=== PATIENT | male | born 1940 | race Caucasian/White ===

== ENCOUNTER 2017-07-01 18:35 | Inpatient (IN) | payer MEDICARE ==
[2017-07-01] MEDS ORDERED: Sodium Chloride 0.9% 1,000 ML IV STA (18:56)
--- NOTE | 2017-07-01 18:59 | ED PDOC ---
HPI: Chest Pain Time Seen by Provider: 07/01/17 18:50 Chief Complaint (Nursing): Chest Pain History Per: Patient Onset/Duration Of Symptoms: Days (1) Current Symptoms Are (Timing): Better Severity: Mild Pain Scale Rating Of: 2 Quality: Aching Associated Symptoms: Dyspnea Additional Complaint(s): Chest pain at 9AM today. Nonradiating assoc with SOB and weakness. Denies fever or cough. Denies bloody stool. Denies abd pain. Left hand swelling. Denies trauma to left hand Past Medical History Vital Signs: Last Vital Signs Temp 98.1 F 07/01/17 18:42 Pulse 106 H 07/01/17 18:42 Resp 20 07/01/17 18:42 BP 131/74 07/01/17 18:42 Pulse Ox 99 07/01/17 18:42 - Medical History PMH: CHF, COPD - Surgical History Surgical History: Pacemaker - Family History Family History: States: Unknown Family Hx - Allergies Allergies/Adverse Reactions: Allergies Allergy/AdvReac Type Severity Reaction Status Date / Time No Known Allergies Allergy Verified 07/01/17 18:42 Review of Systems ROS Statement: Except As Marked, All Systems Reviewed And Found Negative Constitutional: Positive for: Weakness. Negative for: Fever Cardiovascular: Positive for: Chest Pain Respiratory: Positive for: Shortness of Breath. Negative for: Cough Physical Exam - Reviewed Nursing Documentation Reviewed: Yes Vital Signs Reviewed: Yes - Physical Exam Appears: Positive for: Non-toxic, No Acute Distress Head Exam: Positive for: ATRAUMATIC, NORMAL INSPECTION, NORMOCEPHALIC Skin: Positive for: Warm, Pallor Eye Exam: Positive for: EOMI, PERRL, Other (Conjunctivae pale) ENT: Positive for: Normal ENT Inspection Neck: Positive for: Normal, Painless ROM Cardiovascular/Chest: Positive for: Regular Rate, Rhythm Respiratory: Positive for: CNT, Normal Breath Sounds Pulses-Radial (L): 2+ Pulses-Radial (R): 2+ Gastrointestinal/Abdominal: Positive for: Bowel Sounds, Soft. Negative for: Tenderness Back: Positive for: Normal Inspection Extremity: Positive for: Swelling (Left hand swollen dorsum, nontender, no deformity) Neurologic/Psych: Positive for: Alert, Oriented - ECG O2 Sat by Pulse Oximetry: 99 Disposition - Clinical Impression Clinical Impression: Chest pain - Patient ED Disposition Is Patient to be Admitted: Transfer of Care - Disposition Disposition: Transfer of Care Disposition Time: 19:01 Condition: FAIR Patient Signed Over To: Martinez Calderon
--- NOTE | 2017-07-01 19:25 | ED PDOC ---
- Laboratory Results Result Diagrams: 07/01/17 19:56 07/01/17 19:56 - ECG O2 Sat by Pulse Oximetry: 99 (RA) Pulse Ox Interpretation: Normal Medical Decision Making Medical Decision Making: Patient signed out to provider from Dr. Granados at 1900 pending labs and final ED disposition. 2100 No clinical significant abnormalities. Case discussed with Dr. Mueller and patient will be placed on chest pain observation status Condition: Fair Scribe Attestation Documented by Ghazala Bean acting as a scribe for Martinez Calderon MD. Provider Attestation All medical record entries made by the Scribe were at my direction and personally dictated by me. I have reviewed the chart and agree that the record accurately reflects my personal performance of the history, physical exam, medical decision making, and the department course for this patient. I have also personally directed, reviewed, and agree with the discharge instructions and disposition. Disposition - Clinical Impression Clinical Impression: Chest pain, Anemia - POA Present On Arrival: None - Disposition Disposition: Hospitalized as Observation Patient Disposition Time: 20:30 Condition: FAIR
[2017-07-01 20:03] LABS: BASO # 0.1 K/uL (0.0-0.2); BASO % 1.3 % (0.0-2.0); HEMATOCRIT 29.8 % (35.0-51.0); LYMPH # 1.7 K/uL (1.0-4.3); LYMPH % 38.9 % (20.0-40.0); MEAN CELL VOLUME 82.5 fl (80.0-94.0); MEAN CORPUSCULAR HEMOGLOBIN 26.1 pg (27.0-31.0); MEAN CORPUSCULAR HGB CONC 31.6 g/dL (33.0-37.0); MEAN PLATELET VOLUME 6.8 fl (7.2-11.7); MONO # 0.4 K/uL (0.0-0.8); MONO % 9.1 % (0.0-10.0); NEUT # 2.2 K/uL (1.8-7.0); NEUT % 49.7 % (50.0-75.0); NRBC % 0.2 % (0.0-0.0); RED CELL DISTRIBUTION WIDTH 16.1 % (11.5-14.5); WHITE BLOOD COUNT 4.4 K/uL (4.8-10.8)
[2017-07-01 20:17] LABS: ALB/GLOB RATIO 0.9 (1.0-2.1); ALKALINE PHOSPHATASE 107 U/L (38-126); ALT/SGPT 44 U/L (21-72); AST/SGOT 40 U/L (17-59); BILIRUBIN,TOTAL 0.5 mg/dl (0.2-1.3); BLOOD UREA NITROGEN 13 mg/dl (9-20); CALCIUM 9.1 mg/dL (8.4-10.2); CARBON DIOXIDE 23 mmol/L (22-30); CHLORIDE 99 mmol/L (98-107); GFR AFRICAN-AMERICAN > 60; GLUCOSE,RANDOM 97 mg/dL (75-110); SODIUM 131 mmol/l (132-148); TOTAL PROTEIN 8.3 G/DL (6.3-8.2)
[2017-07-01 20:29] LABS: POTASSIUM 4.5 MMOL/L (3.6-5.0)
[2017-07-02 06:02] LABS: PARTIAL THROMBOPLASTIN TIME 35.6 Seconds (25.6-37.1)
[2017-07-02 06:06] LABS: ALB/GLOB RATIO 0.9 (1.0-2.1); ALKALINE PHOSPHATASE 102 U/L (38-126); ALT/SGPT 44 U/L (21-72); AST/SGOT 38 U/L (17-59); BILIRUBIN,TOTAL 0.4 mg/dl (0.2-1.3); BLOOD UREA NITROGEN 12 mg/dl (9-20); CALCIUM 8.8 mg/dL (8.4-10.2); CARBON DIOXIDE 25 mmol/L (22-30); CHLORIDE 100 mmol/L (98-107); CHOLESTEROL 134 mg/dL (0-199); GFR AFRICAN-AMERICAN > 60; GLUCOSE,RANDOM 93 mg/dL (75-110); POTASSIUM 4.3 MMOL/L (3.6-5.0); SODIUM 134 mmol/l (132-148); TOTAL PROTEIN 7.5 G/DL (6.3-8.2)
[2017-07-02 06:08] LABS: BASO # 0.1 K/uL (0.0-0.2); BASO % 1.1 % (0.0-2.0); EOS % 0.9 % (0.0-4.0); HEMATOCRIT 26.9 % (35.0-51.0); LYMPH # 2.1 K/uL (1.0-4.3); LYMPH % 43.3 % (20.0-40.0); MEAN CELL VOLUME 81.9 fl (80.0-94.0); MEAN CORPUSCULAR HEMOGLOBIN 26.3 pg (27.0-31.0); MEAN CORPUSCULAR HGB CONC 32.1 g/dL (33.0-37.0); MEAN PLATELET VOLUME 6.7 fl (7.2-11.7); MONO # 0.4 K/uL (0.0-0.8); MONO % 8.9 % (0.0-10.0); NEUT # 2.2 K/uL (1.8-7.0); NEUT % 45.8 % (50.0-75.0); RED CELL DISTRIBUTION WIDTH 15.9 % (11.5-14.5); RETIC% 1.1 % (0.5-1.5); WHITE BLOOD COUNT 4.7 K/uL (4.8-10.8)
[2017-07-02 06:24] LABS: T4 7.52 ug/dl (5.5-11.0)
[2017-07-02 06:28] LABS: IRON 22 ug/dL (49-181)
[2017-07-02 06:37] LABS: PROSTATE SPECIFIC ANTIGEN 0.095 ng/ML (0.00-4.0); THYROID STIMULATING HORMONE 1.01 mIU/ML (0.46-4.68)
[2017-07-02 09:00] LABS: RBC URINE 15 /hpf (0-3); URINE BACTERIA RARE (<OCC); URINE BILIRUBIN NEGATIVE (NEGATIVE); URINE BLOOD NEGATIVE (NEGATIVE); URINE COLOR AMBER (YELLOW); URINE GLUCOSE (UA) NEG (Normal); URINE KETONE NEGATIVE (NEGATIVE); URINE LEUKOCYTE ESTERASE NEG Leu/uL (Negative); URINE PROTEIN 30 mg/dL (NEGATIVE); URINE UROBILINOGEN 0.2-1.0 mg/dL (0.2-1.0); WBC URINE 3 /hpf (0-5)
--- NOTE | 2017-07-02 10:51 | RAD ---
HISTORY: Cough COMPARISON: 03/10/2012. FINDINGS: LUNGS: The lungs are well inflated and clear. PLEURA: No significant pleural effusion identified, no pneumothorax apparent. CARDIOVASCULAR: The heart is normal in size. There is stable position of a left-sided dual lead transvenous permanent pacing device. OSSEOUS STRUCTURES: No significant abnormalities. VISUALIZED UPPER ABDOMEN: Normal. OTHER FINDINGS: None. IMPRESSION: No active pulmonary disease.
--- NOTE | 2017-07-02 10:52 | US ---
PROCEDURE: Duplex ultrasound of the carotid and vertebral arteries. HISTORY: CHEST PAIN COMPARISON: None available. TECHNIQUE: Grayscale and duplex Doppler evaluation of the cervical carotid and vertebral arteries were performed. The common carotid, carotid bifurcations and cervical ICA and proximal ECA were evaluated. The vertebral arteries were evaluated for gross patency and direction. FINDINGS: RIGHT CAROTID ARTERIES: Common Carotid Artery: Normal. Maximal flow velocity of 93 cm/s. Carotid Bifurcation: Normal. Internal Carotid Artery:Normal. Maximal flow velocity of 88 cm/s. External Carotid Artery (proximal branches): Normal. Maximal flow velocity of 68 cm/s. ICA/CCA Ratio: 0.9 LEFT CAROTID ARTERIES: Common Carotid Artery: Normal. Maximal flow velocity of 90 cm/s. Carotid Bifurcation: Trace atherosclerotic plaque is noted at the carotid bulb. Internal Carotid Artery:Trace atherosclerotic plaque is noted proximally. Maximal flow velocity of 90 cm/s. External Carotid Artery (proximal branches): Normal. Maximal flow velocity of 67 cm/s. ICA/CCA Ratio: 1.3 VERTEBRAL ARTERIES: Right Vertebral Artery: Patent. Antegrade flow. Left Vertebral Artery: Patent. Antegrade flow. OTHER FINDINGS: None. IMPRESSION: Trace atherosclerotic plaque is seen at the left carotid bulb extending to the proximal left ICA minimally. No significant stenosis in the bilateral common or internal carotid arteries nevertheless.
--- NOTE | 2017-07-02 11:36 | CARD ---
APPROVED REPORT EXAM: Two-dimensional and M-mode echocardiogram with Doppler and color Doppler. Other Information Quality : FairRhythm : Pacemaker Technically limited study due to Poor Echo Window INDICATION Chest Pain Surgery/Intervention ICD/Pacemaker: 2D DIMENSIONS IVSd1.14 (0.7-1.1cm)LVDd5.23 (3.9-5.9cm) PWd0.73 (0.7-1.1cm)IVSs1.29 (0.8-1.2cm) LVDs4.60 (2.5-4.0cm)FS (%) 12.1 % PWs0.79 (0.8-1.2cm) Mitral Valve E/A ratio0.0 TDI E/Lateral E'0.0E/Medial E'0.0 LEFT VENTRICLE The left ventricle is normal size. There is normal left ventricular wall thickness. unable to assess LVEF due to poor acoustic windows, tachycardia, unable to assess Transmitral Doppler flow pattern is Grade IV-fixed restrictive diastolic dysfunction. No left ventricle thrombus noted on this study. There is no ventricular septal defect visualized. There is no left ventricular aneurysm. There is no mass noted in the left ventricle. RIGHT VENTRICLE The right ventricle is normal size. There is normal right ventricular wall thickness. The right ventricular systolic function is normal. ATRIA The left atrium size is normal. The right atrium size is normal. The interatrial septum is intact with no evidence for an atrial septal defect. AORTIC VALVE The aortic valve is normal in structure. No aortic regurgitation is present. There is no aortic valvular stenosis. There is no aortic valvular vegetation. MITRAL VALVE The mitral valve is normal in structure. There is no evidence of mitral valve prolapse. There is no mitral valve stenosis. There is no mitral valve regurgitation noted. TRICUSPID VALVE The tricuspid valve is normal in structure. There is no tricuspid valve regurgitation noted. There is no tricuspid valve prolapse or vegetation. There is no tricuspid valve stenosis. PULMONIC VALVE The pulmonary valve is normal in structure. There is no pulmonic valvular regurgitation. There is no pulmonic valvular stenosis. GREAT VESSELS The aortic root is normal in size. The ascending aorta is normal in size. The IVC is normal in size and collapses >50% with inspiration. PERICARDIAL EFFUSION The pericardium appears normal. There is no pleural effusion. <Conclusion> Technically difficult study unable to report LV systolic function Consider MUGA exam for better evaluation of LVEF Regional Wall Motion could not be assessed
[2017-07-02 13:21] LABS: FOLATE 7.5 ng/mL
--- NOTE | 2017-07-02 14:06 | RAD ---
PROCEDURE: Left Hand Radiographs. HISTORY: swelling COMPARISON: None. FINDINGS: BONES: No acute fracture or destructive bony lesion identified. Diffuse osteopenia suggests osteoporosis. JOINTS: Diffuse cortical sclerosis and subtle joint space narrowing throughout the joints of the left hand and incidentally throughout the wrist indicates degenerative joint disease. SOFT TISSUES: Normal. OTHER FINDINGS: None. IMPRESSION: No acute fracture or dislocation throughout left the left hand. degenerative joint changes are appreciated diffusely throughout the left hand.
--- NOTE | 2017-07-02 14:13 | CP.PCM.CON ---
History of Present Illness - History of Present Illness History of Present Illness: 76 year old male with a history of HTN, BPH, admitted with chest pain, found to be anemic. The patient reports to sternal chest pain associated with shortness of breath and cough. He had pain radiating down his left arm with swelling. He denies abnormal bleeding and bruising. He feels his weight is stable but he notes to diminished appetite in the last few weeks. Past medical history: HTN, BPH Past surgical history: None Family history: Denies hematologic and oncologic problems Social history: Denies tobacco, alcohol, and illicit drug use. Allergies: NKA Review of systems: All remaining review of systems including HEENT, cardiovascular, respiratory, gastrointestinal, genitourinary, musculoskeletal, dermatologic, neurologic, and psychiatric are negative unless mentioned in the HPI. Past Patient History - Past Medical History & Family History Past Medical History?: Yes - Past Social History Smoking Status: Former Smoker - CARDIAC Hx Cardiac Disorders: Yes Hx Congestive Heart Failure: Yes Hx Pacemaker: Yes - PULMONARY Hx Respiratory Disorders: Yes Hx Chronic Obstructive Pulmonary Disease (COPD): Yes - NEUROLOGICAL Hx Neurological Disorder: No - HEENT Hx HEENT Problems: No - RENAL Hx Chronic Kidney Disease: No - ENDOCRINE/METABOLIC Hx Endocrine Disorders: No - HEMATOLOGICAL/ONCOLOGICAL Hx Blood Disorders: No - INTEGUMENTARY Hx Dermatological Problems: No - MUSCULOSKELETAL/RHEUMATOLOGICAL Hx Musculoskeletal Disorders: Yes Hx Back Pain: Yes Hx Falls: No Hx Osteoarthritis: Yes - GASTROINTESTINAL Hx Gastrointestinal Disorders: No - GENITOURINARY/GYNECOLOGICAL Hx Genitourinary Disorders: Yes Hx Prostate Problems: Yes - PSYCHIATRIC Hx Psychophysiologic Disorder: No Hx Substance Use: No - SURGICAL HISTORY Hx Surgeries: Yes Hx Herniorrhaphy: Yes Hx Tonsillectomy: Yes Other/Comment: PACEMAKER - ANESTHESIA Hx Anesthesia: Yes Hx Anesthesia Reactions: No Hx Malignant Hyperthermia: No Meds Allergies/Adverse Reactions: Allergies Allergy/AdvReac Type Severity Reaction Status Date / Time No Known Allergies Allergy Verified 07/01/17 18:42 - Medications Medications: Current Medications Carvedilol (Coreg) 6.25 mg PO BID [facility] Last Admin: 07/02/17 09:38 Dose: 6.25 mg Epoetin Jhon (Procrit) 10,000 unit SC TTS [facility] Tamsulosin HCl (Flomax) 0.4 mg PO DAILY [facility] Last Admin: 07/02/17 09:38 Dose: 0.4 mg Physical Exam - Head Exam Head Exam: ATRAUMATIC - Eye Exam Eye Exam: Normal appearance - ENT Exam ENT Exam: Mucous Membranes Dry - Respiratory Exam Respiratory Exam: NORMAL BREATHING PATTERN - Cardiovascular Exam Cardiovascular Exam: +S1, +S2 - GI/Abdominal Exam GI & Abdominal Exam: Normal Bowel Sounds - Extremities Exam Extremities exam: Positive for: normal inspection - Neurological Exam Neurological exam: Oriented x3 - Psychiatric Exam Psychiatric exam: Normal Affect, Normal Mood - Skin Skin Exam: Warm Results - Vital Signs Recent Vital Signs: Last Vital Signs Temp 98.6 F 07/02/17 12:00 Pulse 90 07/02/17 12:00 Resp 18 07/02/17 12:00 BP 104/63 07/02/17 12:00 Pulse Ox 98 07/02/17 12:00 - Labs Result Diagrams: 07/02/17 04:25 07/02/17 04:25 Labs: Laboratory Results - last 24 hr 07/01/17 07/01/17 07/02/17 19:56 19:56 03:31 WBC 4.4 L RBC 3.61 L Hgb 9.4 L Hct 29.8 L MCV 82.5 MCH 26.1 L MCHC 31.6 L RDW 16.1 H Plt Count 404 H MPV 6.8 L Neut % (Auto) 49.7 L Lymph % (Auto) 38.9 Mcdonough % (Auto) 9.1 Eos % (Auto) 1.0 Baso % (Auto) 1.3 Neut # 2.2 Lymph # 1.7 Mcdonough # 0.4 Eos # 0.0 Baso # 0.1 Retic Count PT INR APTT Sodium 131 L Potassium 4.5 Chloride 99 Carbon Dioxide 23 Anion Gap 14 BUN 13 Creatinine 0.7 L Est GFR ( Amer) > 60 Est GFR (Non-Af Amer) > 60 Random Glucose 97 Calcium 9.1 Iron TIBC % Saturation Ferritin Total Bilirubin 0.5 AST 40 ALT 44 Alkaline Phosphatase 107 Troponin I < 0.0120 Total Protein 8.3 H Albumin 3.9 Globulin 4.4 H Albumin/Globulin Ratio 0.9 L Triglycerides Cholesterol LDL Cholesterol Direct HDL Cholesterol Prostate Specific Ag Vitamin B12 Folate Thyroxine (T4) TSH 3rd Generation Urine Color Mary Urine Clarity Slighty-cloudy Urine pH 5.0 Ur Specific [place] 1.027 Urine Protein 30 Urine Glucose (UA) Neg Urine Ketones Negative Urine Blood Negative Urine Nitrate Negative Urine Bilirubin Negative Urine Urobilinogen 0.2-1.0 Ur Leukocyte Esterase Neg Urine RBC (Auto) 15 H Urine Microscopic WBC 3 Ur Squamous Epith Cells < 1 Urine Bacteria Rare 07/02/17 07/02/17 07/02/17 04:25 04:25 04:25 WBC 4.7 L RBC 3.28 L Hgb 8.6 L Hct 26.9 L MCV 81.9 MCH 26.3 L MCHC 32.1 L RDW 15.9 H Plt Count 361 MPV 6.7 L Neut % (Auto) 45.8 L Lymph % (Auto) 43.3 H Mcdonough % (Auto) 8.9 Eos % (Auto) 0.9 Baso % (Auto) 1.1 Neut # 2.2 Lymph # 2.1 Mcdonough # 0.4 Eos # 0.0 Baso # 0.1 Retic Count 1.1 PT 18.7 H INR 1.6 H APTT 35.6 Sodium 134 Potassium 4.3 Chloride 100 Carbon Dioxide 25 Anion Gap 13 BUN 12 Creatinine 0.7 L Est GFR ( Amer) > 60 Est GFR (Non-Af Amer) > 60 Random Glucose 93 Calcium 8.8 Iron TIBC % Saturation Ferritin 1430.0 H Total Bilirubin 0.4 AST 38 ALT 44 Alkaline Phosphatase 102 Troponin I < 0.0120 Total Protein 7.5 Albumin 3.5 Globulin 3.9 Albumin/Globulin Ratio 0.9 L Triglycerides 74 Cholesterol 134 LDL Cholesterol Direct 95 HDL Cholesterol 17 L Prostate Specific Ag 0.095 Vitamin B12 576 Folate 7.5 Thyroxine (T4) 7.52 TSH 3rd Generation 1.01 Urine Color Urine Clarity Urine pH Ur Specific [place] Urine Protein Urine Glucose (UA) Urine Ketones Urine Blood Urine Nitrate Urine Bilirubin Urine Urobilinogen Ur Leukocyte Esterase Urine RBC (Auto) Urine Microscopic WBC Ur Squamous Epith Cells Urine Bacteria 07/02/17 07/02/17 04:25 11:55 WBC RBC Hgb Hct MCV MCH MCHC RDW Plt Count MPV Neut % (Auto) Lymph % (Auto) Mcdonough % (Auto) Eos % (Auto) Baso % (Auto) Neut # Lymph # Mcdonough # Eos # Baso # Retic Count PT INR APTT Sodium Potassium Chloride Carbon Dioxide Anion Gap BUN Creatinine Est GFR ( Amer) Est GFR (Non-Af Amer) Random Glucose Calcium Iron 22 L TIBC 187 L % Saturation 12 L Ferritin Total Bilirubin AST ALT Alkaline Phosphatase Troponin I < 0.0120 Total Protein Albumin Globulin Albumin/Globulin Ratio Triglycerides Cholesterol LDL Cholesterol Direct HDL Cholesterol Prostate Specific Ag Vitamin B12 Folate Thyroxine (T4) TSH 3rd Generation Urine Color Urine Clarity Urine pH Ur Specific [place] Urine Protein Urine Glucose (UA) Urine Ketones Urine Blood Urine Nitrate Urine Bilirubin Urine Urobilinogen Ur Leukocyte Esterase Urine RBC (Auto) Urine Microscopic WBC Ur Squamous Epith Cells Urine Bacteria Assessment & Plan (1) Anemia Assessment and Plan: hypoproliferative erythroid response no evidence of iron, b12, folate deficiency ferritin elevated; anemia of chronic disease given elevated globulin gap, will evaluate for monoclonal protein. Should he show evidence of a monoclonal protein, he would require a bone marrow biopsy. on Procrit supplementation Status: Acute Priority: High (2) Elevated serum globulin level Assessment and Plan: rule out monoclonal protein, rule out hepatitis Status: Acute (3) Coagulopathy Assessment and Plan: may be nutritional will consider vit k if worsens Status: Acute (4) Leukopenia Assessment and Plan: mild, no neutropenia Thank you for this interesting consult. Status: Acute
--- NOTE | 2017-07-02 14:34 | US ---
PROCEDURE: Left Upper Extremity Venous Doppler HISTORY: swelling COMPARISON: None available. TECHNIQUE: Left extremity deep veins, including the lower internal jugular, subclavian, axillary and brachial veins, were evaluated flow, compressibility and respiratory phasicity. FINDINGS: Normal flow, compressibility and respiratory phasicity was observed in the left upper extremity deep veins. IMPRESSION: No evidence of deep venous thrombosis.
--- NOTE | 2017-07-02 16:04 | CP.PCM.HP ---
History of Present Illness - History of Present Illness History of Present Illness: CC: Chest pain. 76 [facility] 9[facility] DOA, Pt had asa with no relief. Described as Sternal chest pain, intermittent, aching, moderate intensity 6:10, non radiated, associated to mild SOB and paroxysmal cough for 2 weeks prio admission Worsening symptoms: Weaknesses, dizziness x one week [employer], L shoulder pain for one week and also noticed with swelling edema in L hand 2 days [employer]. aggravated factor: Worsening pain with movements. Pt denied: Fever, chills, n/v/d, abdominal pain, urinary symptoms, blood in stool, syncope, hemoptysis, LOC, sick contact, recent travel. Echo: Technically difficult study , unable to report LV systolic function , suggested MUGA exam for evaluation of LV function ,regional wall motion could not be assessed. CXR: No active pulmonary disease. Present on Admission - Present on Admission Any Indicators Present on Admission: No Review of Systems - Constitutional Constitutional: Weakness - EENT Eyes: Requires Corrective Lenses Ears: Other (negative) Nose/Mouth/Throat: Other (negative) - Cardiovascular Cardiovascular: Chest Pain, Edema (R arm) - Respiratory Respiratory: Cough, Dyspnea - Gastrointestinal Gastrointestinal: Other (negative) - Genitourinary Genitourinary: Other (negative) - Musculoskeletal Musculoskeletal: Arthralgias, Other (L shoulder pain, L hand pain.) - Integumentary Integumentary: Other (negative) - Neurological Neurological: Dizziness, Weakness - Psychiatric Psychiatric: Other (negative) - Endocrine Endocrine: Other (negative) - Hematologic/Lymphatic Hematologic: Other (anemia.) Past Patient History - Past Medical History & Family History Past Medical History?: Yes Pertinent Family History: Unknown - Past Social History Smoking Status: Former Smoker Alcohol: None Drugs: Denies Home Situation {Lives}: With Family - CARDIAC Hx Cardiac Disorders: Yes Hx Congestive Heart Failure: Yes Hx Pacemaker: Yes Other/Comment: Dyslipidemia. - PULMONARY Hx Respiratory Disorders: Yes Hx Chronic Obstructive Pulmonary Disease (COPD): Yes - NEUROLOGICAL Hx Neurological Disorder: No - HEENT Hx HEENT Problems: No - RENAL Hx Chronic Kidney Disease: No - ENDOCRINE/METABOLIC Hx Endocrine Disorders: No - HEMATOLOGICAL/ONCOLOGICAL Hx Blood Disorders: No - INTEGUMENTARY Hx Dermatological Problems: No - MUSCULOSKELETAL/RHEUMATOLOGICAL Hx Musculoskeletal Disorders: Yes Hx Back Pain: Yes Hx Falls: No Hx Osteoarthritis: Yes - GASTROINTESTINAL Hx Gastrointestinal Disorders: No - GENITOURINARY/GYNECOLOGICAL Hx Genitourinary Disorders: Yes Hx Prostate Problems: Yes - PSYCHIATRIC Hx Psychophysiologic Disorder: Yes Hx Anxiety: Yes Hx Substance Use: No - SURGICAL HISTORY Hx Surgeries: Yes Hx Herniorrhaphy: Yes Hx Tonsillectomy: Yes Other/Comment: PACEMAKER - ANESTHESIA Hx Anesthesia: Yes Hx Anesthesia Reactions: No Hx Malignant Hyperthermia: No Meds Allergies/Adverse Reactions: Allergies Allergy/AdvReac Type Severity Reaction Status Date / Time No Known Allergies Allergy Verified 07/01/17 18:42 Physical Exam - Constitutional Appears: No Acute Distress - Head Exam Head Exam: NORMAL INSPECTION - Eye Exam Eye Exam: PERRL - ENT Exam ENT Exam: Normal Exam - Neck Exam Neck exam: Positive for: Normal Inspection - Respiratory Exam Respiratory Exam: NORMAL BREATHING PATTERN - Cardiovascular Exam Cardiovascular Exam: REGULAR RHYTHM - GI/Abdominal Exam GI & Abdominal Exam: Normal Bowel Sounds, Soft - Extremities Exam Extremities exam: Positive for: joint swelling (L hand), tenderness (L shoulder) Additional comments: 2+ Pitting edema L hand. R-L TKR - Back Exam Back exam: NORMAL INSPECTION - Neurological Exam Neurological exam: Alert, Oriented x3 Additional comments: At times forgetful. - Psychiatric Exam Psychiatric exam: Normal Mood - Skin Skin Exam: Warm Results - Vital Signs Recent Vital Signs: Last Vital Signs Temp 98.6 F 07/02/17 12:00 Pulse 90 07/02/17 12:00 Resp 18 07/02/17 12:00 BP 104/63 07/02/17 12:00 Pulse Ox 98 07/02/17 12:00 reviewed Dora - Labs Result Diagrams: 07/08/17 12:19 07/09/17 05:00 Labs: Laboratory Results - last 24 hr 07/01/17 07/01/17 07/02/17 19:56 19:56 03:31 WBC 4.4 L RBC 3.61 L Hgb 9.4 L Hct 29.8 L MCV 82.5 MCH 26.1 L MCHC 31.6 L RDW 16.1 H Plt Count 404 H MPV 6.8 L Neut % (Auto) 49.7 L Lymph % (Auto) 38.9 Door % (Auto) 9.1 Eos % (Auto) 1.0 Baso % (Auto) 1.3 Neut # 2.2 Lymph # 1.7 Door # 0.4 Eos # 0.0 Baso # 0.1 Retic Count PT INR APTT Sodium 131 L Potassium 4.5 Chloride 99 Carbon Dioxide 23 Anion Gap 14 BUN 13 Creatinine 0.7 L Est GFR ( Amer) > 60 Est GFR (Non-Af Amer) > 60 Random Glucose 97 Calcium 9.1 Iron TIBC % Saturation Ferritin Total Bilirubin 0.5 AST 40 ALT 44 Alkaline Phosphatase 107 Troponin I < 0.0120 Total Protein 8.3 H Albumin 3.9 Globulin 4.4 H Albumin/Globulin Ratio 0.9 L Triglycerides Cholesterol LDL Cholesterol Direct HDL Cholesterol Prostate Specific Ag Vitamin B12 Folate Thyroxine (T4) TSH 3rd Generation Urine Color Mary Urine Clarity Slighty-cloudy Urine pH 5.0 Ur Specific [place] 1.027 Urine Protein 30 Urine Glucose (UA) Neg Urine Ketones Negative Urine Blood Negative Urine Nitrate Negative Urine Bilirubin Negative Urine Urobilinogen 0.2-1.0 Ur Leukocyte Esterase Neg Urine RBC (Auto) 15 H Urine Microscopic WBC 3 Ur Squamous Epith Cells < 1 Urine Bacteria Rare 07/02/17 07/02/17 07/02/17 04:25 04:25 04:25 WBC 4.7 L RBC 3.28 L Hgb 8.6 L Hct 26.9 L MCV 81.9 MCH 26.3 L MCHC 32.1 L RDW 15.9 H Plt Count 361 MPV 6.7 L Neut % (Auto) 45.8 L Lymph % (Auto) 43.3 H Door % (Auto) 8.9 Eos % (Auto) 0.9 Baso % (Auto) 1.1 Neut # 2.2 Lymph # 2.1 Door # 0.4 Eos # 0.0 Baso # 0.1 Retic Count 1.1 PT 18.7 H INR 1.6 H APTT 35.6 Sodium 134 Potassium 4.3 Chloride 100 Carbon Dioxide 25 Anion Gap 13 BUN 12 Creatinine 0.7 L Est GFR ( Amer) > 60 Est GFR (Non-Af Amer) > 60 Random Glucose 93 Calcium 8.8 Iron TIBC % Saturation Ferritin 1430.0 H Total Bilirubin 0.4 AST 38 ALT 44 Alkaline Phosphatase 102 Troponin I < 0.0120 Total Protein 7.5 Albumin 3.5 Globulin 3.9 Albumin/Globulin Ratio 0.9 L Triglycerides 74 Cholesterol 134 LDL Cholesterol Direct 95 HDL Cholesterol 17 L Prostate Specific Ag 0.095 Vitamin B12 576 Folate 7.5 Thyroxine (T4) 7.52 TSH 3rd Generation 1.01 Urine Color Urine Clarity Urine pH Ur Specific [place] Urine Protein Urine Glucose (UA) Urine Ketones Urine Blood Urine Nitrate Urine Bilirubin Urine Urobilinogen Ur Leukocyte Esterase Urine RBC (Auto) Urine Microscopic WBC Ur Squamous Epith Cells Urine Bacteria 07/02/17 07/02/17 04:25 11:55 WBC RBC Hgb Hct MCV MCH MCHC RDW Plt Count MPV Neut % (Auto) Lymph % (Auto) Door % (Auto) Eos % (Auto) Baso % (Auto) Neut # Lymph # Door # Eos # Baso # Retic Count PT INR APTT Sodium Potassium Chloride Carbon Dioxide Anion Gap BUN Creatinine Est GFR ( Amer) Est GFR (Non-Af Amer) Random Glucose Calcium Iron 22 L TIBC 187 L % Saturation 12 L Ferritin Total Bilirubin AST ALT Alkaline Phosphatase Troponin I < 0.0120 Total Protein Albumin Globulin Albumin/Globulin Ratio Triglycerides Cholesterol LDL Cholesterol Direct HDL Cholesterol Prostate Specific Ag Vitamin B12 Folate Thyroxine (T4) TSH 3rd Generation Urine Color Urine Clarity Urine pH Ur Specific [place] Urine Protein Urine Glucose (UA) Urine Ketones Urine Blood Urine Nitrate Urine Bilirubin Urine Urobilinogen Ur Leukocyte Esterase Urine RBC (Auto) Urine Microscopic WBC Ur Squamous Epith Cells Urine Bacteria reviewed J.P. - Imaging and Cardiology Chest x-ray Status: Report reviewed by me (Dora) Additional comment: Echo: Reviewed J.P. Assessment & Plan (1) Anemia Status: Acute Priority: High (2) Chest pain Status: Acute Priority: High (3) History of CHF (congestive heart failure) Status: Chronic Priority: Medium (4) Pain in left shoulder Status: Acute (5) History of permanent cardiac pacemaker placement Status: Chronic Priority: Medium (6) History of BPH Status: Chronic Priority: Medium - Assessment and Plan (Free Text) Plan: EKG, Doppler LUE, Shoulder X-ray, X-Ray L hand, continue Coreg, NaCL IV, Cardiology consult. - Date & Time Date: 07/02/17
--- NOTE | 2017-07-03 01:36 | CP.PCM.CON ---
History of Present Illness - History of Present Illness History of Present Illness: Consulation for chest pain HPI : Mr. Pavel Scott is a 76-year-old male with past medical history significant for hypertension BPH who was admitted with an episode of chest pain. According to the patient he had a retrosternal pressure-like sensation accompanied with shortness of breath and cough he also had radiating pain down the left arm accompanied with left-sided swelling patient had these symptoms ongoing for the last few months. Past medical history as stated above significant for hypertension and BPH. . Family history nonsignificant for his premature CAD. Social history denies history of smoking alcohol or illicit drug use. Allergies no known drug allergies. Review of systems as stated above in the HPI Review of Systems - Review of Systems All systems: reviewed and no additional remarkable complaints except - Constitutional Constitutional: As Per HPI - EENT Eyes: As Per HPI Nose/Mouth/Throat: As Per HPI - Cardiovascular Cardiovascular: As Per HPI, Chest Pain - Respiratory Respiratory: As Per HPI - Gastrointestinal Gastrointestinal: As Per HPI - Genitourinary Genitourinary: As Per HPI - Reproductive: Male Reproductive:Male: As Per HPI - Musculoskeletal Musculoskeletal: As Per HPI - Integumentary Integumentary: As Per HPI - Neurological Neurological: As Per HPI - Psychiatric Psychiatric: As Per HPI - Endocrine Endocrine: As Per HPI - Hematologic/Lymphatic Hematologic: As Per HPI Past Patient History - Past Medical History & Family History Past Medical History?: Yes - Past Social History Smoking Status: Former Smoker - CARDIAC Hx Cardiac Disorders: Yes Hx Congestive Heart Failure: Yes Hx Pacemaker: Yes - PULMONARY Hx Respiratory Disorders: Yes Hx Chronic Obstructive Pulmonary Disease (COPD): Yes - NEUROLOGICAL Hx Neurological Disorder: No - HEENT Hx HEENT Problems: No - RENAL Hx Chronic Kidney Disease: No - ENDOCRINE/METABOLIC Hx Endocrine Disorders: No - HEMATOLOGICAL/ONCOLOGICAL Hx Blood Disorders: No - INTEGUMENTARY Hx Dermatological Problems: No - MUSCULOSKELETAL/RHEUMATOLOGICAL Hx Musculoskeletal Disorders: Yes Hx Back Pain: Yes Hx Falls: No Hx Osteoarthritis: Yes - GASTROINTESTINAL Hx Gastrointestinal Disorders: No - GENITOURINARY/GYNECOLOGICAL Hx Genitourinary Disorders: Yes Hx Prostate Problems: Yes - PSYCHIATRIC Hx Psychophysiologic Disorder: No Hx Substance Use: No - SURGICAL HISTORY Hx Surgeries: Yes Hx Herniorrhaphy: Yes Hx Tonsillectomy: Yes Other/Comment: PACEMAKER - ANESTHESIA Hx Anesthesia: Yes Hx Anesthesia Reactions: No Hx Malignant Hyperthermia: No Meds Allergies/Adverse Reactions: Allergies Allergy/AdvReac Type Severity Reaction Status Date / Time No Known Allergies Allergy Verified 07/01/17 18:42 - Medications Medications: Current Medications Carvedilol (Coreg) 6.25 mg PO BID [facility] Last Admin: 07/02/17 17:26 Dose: 6.25 mg Epoetin Jhon (Procrit) 10,000 unit SC TTS [facility] Tamsulosin HCl (Flomax) 0.4 mg PO DAILY [facility] Last Admin: 07/02/17 09:38 Dose: 0.4 mg Physical Exam - Constitutional Appears: Well - Head Exam Head Exam: ATRAUMATIC, NORMAL INSPECTION, NORMOCEPHALIC - Eye Exam Eye Exam: EOMI, Normal appearance, PERRL Pupil Exam: NORMAL ACCOMODATION, PERRL - ENT Exam ENT Exam: Mucous Membranes Moist, Normal Exam - Neck Exam Neck exam: Positive for: Normal Inspection - Respiratory Exam Respiratory Exam: Clear to Auscultation Bilateral, NORMAL BREATHING PATTERN - Cardiovascular Exam Cardiovascular Exam: REGULAR RHYTHM, RRR, +S1, +S2, Systolic Murmur - GI/Abdominal Exam GI & Abdominal Exam: Normal Bowel Sounds, Soft. absent: Tenderness - Extremities Exam Extremities exam: Positive for: normal inspection - Back Exam Back exam: NORMAL INSPECTION - Neurological Exam Neurological exam: Alert, CN II-XII Intact, Normal Gait, Oriented x3, Reflexes Normal - Psychiatric Exam Psychiatric exam: Normal Affect, Normal Mood - Skin Skin Exam: Dry, Intact, Normal Color, Warm Results - Vital Signs Recent Vital Signs: Last Vital Signs Temp 98.7 F 07/03/17 00:56 Pulse 88 07/03/17 00:56 Resp 18 07/03/17 00:56 BP 112/68 07/03/17 00:56 Pulse Ox 99 07/03/17 00:56 - Labs Result Diagrams: 07/05/17 10:44 07/05/17 10:44 Labs: Laboratory Results - last 24 hr 07/02/17 07/02/17 07/02/17 03:31 04:25 04:25 WBC 4.7 L RBC 3.28 L Hgb 8.6 L Hct 26.9 L MCV 81.9 MCH 26.3 L MCHC 32.1 L RDW 15.9 H Plt Count 361 MPV 6.7 L Neut % (Auto) 45.8 L Lymph % (Auto) 43.3 H [place] % (Auto) 8.9 Eos % (Auto) 0.9 Baso % (Auto) 1.1 Neut # 2.2 Lymph # 2.1 [place] # 0.4 Eos # 0.0 Baso # 0.1 Retic Count 1.1 PT 18.7 H INR 1.6 H APTT 35.6 Sodium Potassium Chloride Carbon Dioxide Anion Gap BUN Creatinine Est GFR ( Amer) Est GFR (Non-Af Amer) Random Glucose Calcium Iron TIBC % Saturation Ferritin Total Bilirubin AST ALT Alkaline Phosphatase Troponin I Total Protein Albumin Globulin Albumin/Globulin Ratio Triglycerides Cholesterol LDL Cholesterol Direct HDL Cholesterol Prostate Specific Ag Vitamin B12 Folate Thyroxine (T4) TSH 3rd Generation Urine Color Mary Urine Clarity Slighty-cloudy Urine pH 5.0 Ur Specific [place] 1.027 Urine Protein 30 Urine Glucose (UA) Neg Urine Ketones Negative Urine Blood Negative Urine Nitrate Negative Urine Bilirubin Negative Urine Urobilinogen 0.2-1.0 Ur Leukocyte Esterase Neg Urine RBC (Auto) 15 H Urine Microscopic WBC 3 Ur Squamous Epith Cells < 1 Urine Bacteria Rare 07/02/17 07/02/17 07/02/17 04:25 04:25 11:55 WBC RBC Hgb Hct MCV MCH MCHC RDW Plt Count MPV Neut % (Auto) Lymph % (Auto) [place] % (Auto) Eos % (Auto) Baso % (Auto) Neut # Lymph # [place] # Eos # Baso # Retic Count PT INR APTT Sodium 134 Potassium 4.3 Chloride 100 Carbon Dioxide 25 Anion Gap 13 BUN 12 Creatinine 0.7 L Est GFR ( Amer) > 60 Est GFR (Non-Af Amer) > 60 Random Glucose 93 Calcium 8.8 Iron 22 L TIBC 187 L % Saturation 12 L Ferritin 1430.0 H Total Bilirubin 0.4 AST 38 ALT 44 Alkaline Phosphatase 102 Troponin I < 0.0120 < 0.0120 Total Protein 7.5 Albumin 3.5 Globulin 3.9 Albumin/Globulin Ratio 0.9 L Triglycerides 74 Cholesterol 134 LDL Cholesterol Direct 95 HDL Cholesterol 17 L Prostate Specific Ag 0.095 Vitamin B12 576 Folate 7.5 Thyroxine (T4) 7.52 TSH 3rd Generation 1.01 Urine Color Urine Clarity Urine pH Ur Specific [place] Urine Protein Urine Glucose (UA) Urine Ketones Urine Blood Urine Nitrate Urine Bilirubin Urine Urobilinogen Ur Leukocyte Esterase Urine RBC (Auto) Urine Microscopic WBC Ur Squamous Epith Cells Urine Bacteria Assessment & Plan (1) Chest pain Assessment and Plan: sx suggestive of underlying CAD keep pt on asa, bb, statins check FLP MARCIE plan for stress test if cardiac enzymes -ve Status: Acute Priority: High (2) Coagulopathy Assessment and Plan: etiology ? vit K deficiency LFT's Status: Acute (3) Pain in left shoulder Status: Acute (4) History of CHF (congestive heart failure) Assessment and Plan: diastolic echo Status: Chronic Priority: Medium (5) History of permanent cardiac pacemaker placement Status: Chronic Priority: Medium
[2017-07-03 05:49] LABS: HEMATOCRIT 27.3 % (35.0-51.0); MEAN CELL VOLUME 82.3 fl (80.0-94.0); MEAN CORPUSCULAR HEMOGLOBIN 26.1 pg (27.0-31.0); MEAN CORPUSCULAR HGB CONC 31.7 g/dL (33.0-37.0); RED CELL DISTRIBUTION WIDTH 16.1 % (11.5-14.5)
--- NOTE | 2017-07-03 05:52 | CON ---
DATE: 07/02/2017 REFERRING PHYSICIAN: Dr. Mueller. REASON FOR CONSULTATION: Abdominal pain, chest pain. HISTORY OF PRESENT ILLNESS: This is a 76-year-old male with history of having chest pain radiating to the back. No shortness of breath. Some dyspnea on exertion. No heartburn or reflux, history of COPD, pacemaker and CHF. Denies any GI complaints per se. He is tolerating diet. His GI was called for anemia, but no evidence of bleeding, does not recall when the last colonoscopy was, but this was relatively recently over the past 5 years. Currently, lying in bed comfortable, in no apparent distress. PAST MEDICAL HISTORY: As above. PAST SURGICAL HISTORY: As above. MEDICATIONS: Reviewed. REVIEW OF SYSTEMS: All other systems have been reviewed and are negative apart from the HPI. PHYSICAL EXAMINATION: VITAL SIGNS: In the hospital, grossly unremarkable. GENERAL: This is a pleasant, elderly-appearing male, lying in bed comfortable, in no apparent distress. HEENT: Head is normocephalic, atraumatic. Eyes, pupils are equally reactive to light bilaterally. No conjunctival pallor or icterus. NECK: Supple. Normal range of motion. No lymphadenopathy appreciated. LUNGS: Coarse breath sounds bilaterally. HEART: S1 and S2, regular rate and rhythm. No murmur appreciated. ABDOMEN: Soft, nontender. Bowel sounds present. No rebound. No guarding. RECTAL: Deferred. EXTREMITIES: Pulses present bilaterally. SKIN: Warm, dry and intact. NEUROLOGIC: A and O x3. LABORATORY DATA: All labs and relevant radiology have been reviewed. Labs include 4.7 is WBC, 8.6 is hemoglobin, hematocrit 26.9, platelet count is 261. INR 1.6. BUN and creatinine normal. 1400. Urinalysis is negative. ASSESSMENT AND PLAN: This is a 76-year-old man with anemia; we will treat accordingly. For chest pain, from GI standpoint, the chest pain is probably cardiac in origin. Given his chronic comorbidities, recommend cardiac input as well as hematology input. From a GI standpoint, can get an endoscopy and colonoscopy at some point electively, but there is no active evidence of bleeding, so not needed to do it urgently. From an upper GI standpoint, proton pump inhibitor once a day. Advance diet as tolerated. Thank you for the consult. Joseph Li MD/ PhD cc: Dr. Mueller.
[2017-07-03 07:16] LABS: TOTAL PROTEIN, SERUM 6.2 g/dL (6.1-8.1)
[2017-07-03] MEDS ORDERED: Aminophylline 25 mg/ml Inj ONE (11:48)
--- NOTE | 2017-07-03 12:06 | CARD ---
APPROVED REPORT EKG Measurement Heart [id number] CT 196P81 [id number] <Conclusion> Sinus rhythm with frequent premature ventricular complexes Left bundle branch block Abnormal ECG
[2017-07-03] MEDS ORDERED: Phytonadione 10 mg/ml Inj (Adult) IV ONE (13:38)
[2017-07-03] MEDS ORDERED: Phytonadione 10 MG in Sodium Chloride 0.9% 50 ML IV ONE (13:45)
--- NOTE | 2017-07-03 15:12 | CP.PCM.PN ---
Subjective - Date & Time of Evaluation Date of Evaluation: 07/03/17 Time of Evaluation: 15:00 - Subjective Subjective: no overnight events Objective - Vital Signs/Intake and Output Vital Signs (last 24 hours): Temp Pulse Resp BP Pulse Ox 98.4 F 95 H 20 101/55 L 100 07/03/17 08:34 07/03/17 09:22 07/03/17 08:34 07/03/17 09:22 07/03/17 08:34 - Medications Medications: Current Medications Carvedilol (Coreg) 6.25 mg PO BID [facility] Last Admin: 07/03/17 09:22 Dose: Not Given Epoetin Jhon (Procrit) 10,000 unit SC TTS [facility] Tamsulosin HCl (Flomax) 0.4 mg PO DAILY [facility] Last Admin: 07/03/17 15:06 Dose: 0.4 mg - Labs Labs: 07/03/17 04:30 07/02/17 04:25 PT 18.7 Seconds (9.8-13.1) H 07/03/17 04:30 INR 1.6 (0.9-1.2) H 07/03/17 04:30 APTT 35.6 Seconds (25.6-37.1) 07/02/17 04:25 - Head Exam Head Exam: NORMAL INSPECTION - Respiratory Exam Respiratory Exam: NORMAL BREATHING PATTERN - Cardiovascular Exam Cardiovascular Exam: REGULAR RHYTHM - GI/Abdominal Exam GI & Abdominal Exam: Soft, Normal Bowel Sounds Assessment and Plan - Assessment and Plan (Free Text) Assessment: 76 yo male with anemia no bleeding cardiac input
--- NOTE | 2017-07-03 16:00 | CP.PCM.PN ---
Subjective - Date & Time of Evaluation Date of Evaluation: 07/03/17 Time of Evaluation: 16:00 - Subjective Subjective: intermittent episode of CP s/p stress test with septal and inferior ischemia vs. attenuation Objective - Vital Signs/Intake and Output Vital Signs (last 24 hours): Temp Pulse Resp BP Pulse Ox 98.6 F 98 H 18 102/65 95 07/03/17 15:42 07/03/17 15:42 07/03/17 15:42 07/03/17 15:42 07/03/17 15:42 - Medications Medications: Current Medications Carvedilol (Coreg) 6.25 mg PO BID [facility] Last Admin: 07/03/17 09:22 Dose: Not Given Epoetin Jhon (Procrit) 10,000 unit SC TTS [facility] Tamsulosin HCl (Flomax) 0.4 mg PO DAILY [facility] Last Admin: 07/03/17 15:06 Dose: 0.4 mg - Labs Labs: 07/03/17 04:30 07/02/17 04:25 PT 18.7 Seconds (9.8-13.1) H 07/03/17 04:30 INR 1.6 (0.9-1.2) H 07/03/17 04:30 APTT 35.6 Seconds (25.6-37.1) 07/02/17 04:25 - Constitutional Appears: Well - Head Exam Head Exam: ATRAUMATIC, NORMAL INSPECTION, NORMOCEPHALIC - Eye Exam Eye Exam: EOMI, Normal appearance, PERRL Pupil Exam: NORMAL ACCOMODATION, PERRL - ENT Exam ENT Exam: Mucous Membranes Moist, Normal Exam - Neck Exam Neck Exam: Full ROM, Normal Inspection. absent: Lymphadenopathy - Respiratory Exam Respiratory Exam: Clear to Ausculation Bilateral, NORMAL BREATHING PATTERN - Cardiovascular Exam Cardiovascular Exam: REGULAR RHYTHM, +S1, +S2. absent: Murmur - GI/Abdominal Exam GI & Abdominal Exam: Soft, Normal Bowel Sounds. absent: Tenderness - Extremities Exam Extremities Exam: Full ROM, Normal Capillary Refill, Normal Inspection. absent : Joint Swelling, Pedal Edema - Back Exam Back Exam: NORMAL INSPECTION - Neurological Exam Neurological Exam: Alert, Awake, CN II-XII Intact, Normal Gait, Oriented x3 - Psychiatric Exam Psychiatric exam: Normal Affect, Normal Mood - Skin Skin Exam: Dry, Intact, Normal Color, Warm Assessment and Plan (1) Chest pain Assessment & Plan: plan for left heart cath to be setup at [facility] [place] Status: Acute (2) Coagulopathy Assessment & Plan: vit K supplementation Status: Acute (3) Pain in left shoulder Status: Acute (4) History of CHF (congestive heart failure) Status: Chronic (5) History of permanent cardiac pacemaker placement Status: Chronic
[2017-07-04 06:00] LABS: BETA 1 GLOBULIN 0.3 g/dL (0.4-0.6); BETA 2 GLOBULIN 0.5 g/dL (0.2-0.5)
[2017-07-04] MEDS ORDERED: Phytonadione 10 mg/ml Inj (Adult) SC ONE (07:45)
[2017-07-04] MEDS: EPOETIN ALFA 10,000 UNIT/ML ML SC SCH (08:34)
--- NOTE | 2017-07-04 13:35 | CP.PCM.PN ---
Subjective - Date & Time of Evaluation Date of Evaluation: 07/04/17 Time of Evaluation: 13:00 - Subjective Subjective: No complaints. Objective - Vital Signs/Intake and Output Vital Signs (last 24 hours): Temp Pulse Resp BP Pulse Ox 98.6 F 93 H 18 113/70 100 07/04/17 08:00 07/04/17 09:00 07/04/17 08:00 07/04/17 08:33 07/04/17 08:00 - Medications Medications: Current Medications Carvedilol (Coreg) 6.25 mg PO BID [facility] Last Admin: 07/04/17 08:33 Dose: 6.25 mg Epoetin Jhon (Procrit) 10,000 unit SC TTS [facility] Last Admin: 07/04/17 08:34 Dose: 10,000 unit Tamsulosin HCl (Flomax) 0.4 mg PO DAILY [facility] Last Admin: 07/04/17 08:34 Dose: Not Given - Labs Labs: 07/03/17 04:30 07/02/17 04:25 PT 19.2 Seconds (9.8-13.1) H 07/04/17 05:30 INR 1.7 (0.9-1.2) H 07/04/17 05:30 APTT 35.6 Seconds (25.6-37.1) 07/02/17 04:25 - Head Exam Head Exam: ATRAUMATIC - Eye Exam Eye Exam: Normal appearance - ENT Exam ENT Exam: Mucous Membranes Dry - Respiratory Exam Respiratory Exam: NORMAL BREATHING PATTERN - Cardiovascular Exam Cardiovascular Exam: +S1, +S2 - GI/Abdominal Exam GI & Abdominal Exam: Normal Bowel Sounds - Extremities Exam Extremities Exam: Normal Inspection Assessment and Plan (1) Anemia Assessment & Plan: normal iron, b12, folate stores elevated ferritin; anemia of chronic disease monoclonal protein w/u sent on Procrit Status: Acute (2) Elevated serum globulin level Assessment & Plan: monoclonal protein w/u sent Status: Acute (3) Coagulopathy Assessment & Plan: s/p vit K IV if no improvement will send mixing study Status: Acute
[2017-07-04 23:03] LABS: KAPPA/LAMBDA FREE RATIO 0.93 (0.26-1.65)
--- NOTE | 2017-07-05 00:45 | CP.PCM.PN ---
Subjective - Date & Time of Evaluation Date of Evaluation: 07/04/17 Time of Evaluation: 13:00 - Subjective Subjective: s/p LHCx showing LAD 65% , mid RCA 55% Objective - Vital Signs/Intake and Output Vital Signs (last 24 hours): Temp Pulse Resp BP Pulse Ox 97.2 F L 102 H 18 106/64 99 07/05/17 00:19 07/05/17 00:19 07/05/17 00:19 07/05/17 00:19 07/05/17 00:19 Intake and Output: 07/04/17 07/05/17 18:59 06:59 Intake Total 100 Balance 100 - Medications Medications: Current Medications Carvedilol (Coreg) 6.25 mg PO BID [facility] Last Admin: 07/04/17 17:58 Dose: Not Given Epoetin Jhon (Procrit) 10,000 unit SC TTS [facility] Last Admin: 07/04/17 08:34 Dose: 10,000 unit Tamsulosin HCl (Flomax) 0.4 mg PO DAILY [facility] Last Admin: 07/04/17 17:59 Dose: Not Given - Labs Labs: 07/03/17 04:30 07/02/17 04:25 PT 19.2 Seconds (9.8-13.1) H 07/04/17 05:30 INR 1.7 (0.9-1.2) H 07/04/17 05:30 APTT 35.6 Seconds (25.6-37.1) 07/02/17 04:25 - Constitutional Appears: Well - Head Exam Head Exam: ATRAUMATIC, NORMAL INSPECTION, NORMOCEPHALIC - Eye Exam Eye Exam: EOMI, Normal appearance, PERRL Pupil Exam: NORMAL ACCOMODATION, PERRL - ENT Exam ENT Exam: Mucous Membranes Moist, Normal Exam - Neck Exam Neck Exam: Full ROM, Normal Inspection. absent: Lymphadenopathy - Respiratory Exam Respiratory Exam: Clear to Ausculation Bilateral, NORMAL BREATHING PATTERN - Cardiovascular Exam Cardiovascular Exam: REGULAR RHYTHM, +S1, +S2, Murmur - GI/Abdominal Exam GI & Abdominal Exam: Soft, Normal Bowel Sounds. absent: Tenderness - Extremities Exam Extremities Exam: Full ROM, Normal Capillary Refill, Normal Inspection. absent : Joint Swelling, Pedal Edema - Back Exam Back Exam: NORMAL INSPECTION - Neurological Exam Neurological Exam: Alert, Awake, CN II-XII Intact, Normal Gait, Oriented x3 - Psychiatric Exam Psychiatric exam: Normal Affect, Normal Mood - Skin Skin Exam: Dry, Intact, Normal Color, Warm Assessment and Plan (1) Chest pain Assessment & Plan: s/p stress test showing +ve ischemia s/p LHCx showing moderate LAD and RCA stenosis plan for aggressive medical management with ASA, plavix, statins, bb and nitrates if pt has ischemic sx on maximal medical therapy then will consider PCI of LAD/ RCA Status: Acute (2) Coagulopathy Assessment & Plan: etiology unclear ? 2' to vit K def will need heme eval Status: Acute (3) Pain in left shoulder Assessment & Plan: 2' to CAD Status: Acute (4) History of CHF (congestive heart failure) Assessment & Plan: ischemic CHF keep pt on GDMT for CAD and CHF BB, ACEi , nitrates Status: Chronic (5) History of permanent cardiac pacemaker placement Assessment & Plan: PPM eval Status: Chronic
[2017-07-05 10:47] LABS: HEMATOCRIT 28.7 % (35.0-51.0); MEAN CELL VOLUME 81.2 fl (80.0-94.0); MEAN CORPUSCULAR HEMOGLOBIN 26.3 pg (27.0-31.0); MEAN CORPUSCULAR HGB CONC 32.4 g/dL (33.0-37.0); RED CELL DISTRIBUTION WIDTH 15.7 % (11.5-14.5)
--- NOTE | 2017-07-05 11:17 | CP.PCM.PN ---
Subjective - Date & Time of Evaluation Date of Evaluation: 07/05/17 Time of Evaluation: 10:45 - Subjective Subjective: Feels weak, no appetite Objective - Vital Signs/Intake and Output Vital Signs (last 24 hours): Temp Pulse Resp BP Pulse Ox 98.0 F 94 H 20 103/67 99 07/05/17 08:00 07/05/17 08:44 07/05/17 08:00 07/05/17 08:44 07/05/17 08:00 - Medications Medications: Current Medications Carvedilol (Coreg) 6.25 mg PO BID [facility] Last Admin: 07/05/17 08:44 Dose: 6.25 mg Epoetin Jhon (Procrit) 10,000 unit SC TTS [facility] Last Admin: 07/04/17 08:34 Dose: 10,000 unit Tamsulosin HCl (Flomax) 0.4 mg PO DAILY [facility] Last Admin: 07/05/17 08:44 Dose: 0.4 mg - Labs Labs: 07/05/17 10:44 07/02/17 04:25 PT 19.2 Seconds (9.8-13.1) H 07/04/17 05:30 INR 1.7 (0.9-1.2) H 07/04/17 05:30 APTT 35.6 Seconds (25.6-37.1) 07/02/17 04:25 - Head Exam Head Exam: ATRAUMATIC - Eye Exam Eye Exam: Normal appearance - ENT Exam ENT Exam: Mucous Membranes Dry - Respiratory Exam Respiratory Exam: NORMAL BREATHING PATTERN - Cardiovascular Exam Cardiovascular Exam: +S1, +S2 - GI/Abdominal Exam GI & Abdominal Exam: Normal Bowel Sounds - Extremities Exam Extremities Exam: Normal Inspection Assessment and Plan (1) Anemia Assessment & Plan: anemia of chronic disease, on Procrit no evidence of iron, b12, folate deficiency H/H improved Status: Acute (2) Elevated serum globulin level Assessment & Plan: no monoclonal protein detected Status: Acute (3) Coagulopathy Assessment & Plan: ? nutritional s/p vit k mixing study sent Status: Acute
[2017-07-05] MEDS ORDERED: Iohexol 240 (50 ml) PO ONE (11:20)
--- NOTE | 2017-07-05 11:26 | CP.PCM.PN ---
Subjective - Date & Time of Evaluation Date of Evaluation: 07/05/17 Time of Evaluation: 11:20 - Subjective Subjective: no overnight events Objective - Vital Signs/Intake and Output Vital Signs (last 24 hours): Temp Pulse Resp BP Pulse Ox 98.0 F 94 H 20 103/67 99 07/05/17 08:00 07/05/17 08:44 07/05/17 08:00 07/05/17 08:44 07/05/17 08:00 - Medications Medications: Current Medications Carvedilol (Coreg) 6.25 mg PO BID [facility] Last Admin: 07/05/17 08:44 Dose: 6.25 mg Epoetin Jhon (Procrit) 10,000 unit SC TTS [facility] Last Admin: 07/04/17 08:34 Dose: 10,000 unit Iohexol (Omnipaque 240 (50 Ml)) 50 ml PO ONCE ONE Stop: 07/05/17 11:21 Tamsulosin HCl (Flomax) 0.4 mg PO DAILY [facility] Last Admin: 07/05/17 08:44 Dose: 0.4 mg - Labs Labs: 07/05/17 10:44 07/02/17 04:25 PT 19.2 Seconds (9.8-13.1) H 07/04/17 05:30 INR 1.7 (0.9-1.2) H 07/04/17 05:30 APTT 35.6 Seconds (25.6-37.1) 07/02/17 04:25 - Head Exam Head Exam: NORMAL INSPECTION - Neck Exam Neck Exam: Normal Inspection - Respiratory Exam Respiratory Exam: Clear to Ausculation Bilateral, NORMAL BREATHING PATTERN - GI/Abdominal Exam GI & Abdominal Exam: Soft, Normal Bowel Sounds Assessment and Plan - Assessment and Plan (Free Text) Assessment: 76 yo male with anemia appreciate heme and cardio input outpatient endoscopic work up once stable
[2017-07-05 12:36] LABS: BLOOD UREA NITROGEN 13 mg/dl (9-20); CARBON DIOXIDE 23 mmol/L (22-30); CHLORIDE 97 mmol/L (98-107); GFR AFRICAN-AMERICAN > 60; GLUCOSE,RANDOM 70 mg/dL (75-110); POTASSIUM 4.2 MMOL/L (3.6-5.0); SODIUM 131 mmol/l (132-148)
--- NOTE | 2017-07-05 13:02 | CP.PCM.PN ---
Subjective - Date & Time of Evaluation Date of Evaluation: 07/05/17 Time of Evaluation: 10:20 - Subjective Subjective: F/U Anemia/ chest pain. Awake, confused, at times attempting to get out of bed. Objective - Vital Signs/Intake and Output Vital Signs (last 24 hours): Temp Pulse Resp BP Pulse Ox 99.1 F 89 18 100/59 L 100 07/05/17 12:00 07/05/17 12:00 07/05/17 12:00 07/05/17 12:00 07/05/17 12:00 - Medications Medications: Current Medications Carvedilol (Coreg) 6.25 mg PO BID [facility] Last Admin: 07/05/17 08:44 Dose: 6.25 mg Epoetin Jhon (Procrit) 10,000 unit SC TTS [facility] Last Admin: 07/04/17 08:34 Dose: 10,000 unit Tamsulosin HCl (Flomax) 0.4 mg PO DAILY [facility] Last Admin: 07/05/17 08:44 Dose: 0.4 mg - Labs Labs: 07/05/17 10:44 07/05/17 10:44 PT 19.2 Seconds (9.8-13.1) H 07/04/17 05:30 INR 1.7 (0.9-1.2) H 07/04/17 05:30 APTT 35.6 Seconds (25.6-37.1) 07/02/17 04:25 - Constitutional Appears: No Acute Distress - Head Exam Head Exam: NORMAL INSPECTION - Eye Exam Eye Exam: PERRL - ENT Exam ENT Exam: Normal Exam - Neck Exam Neck Exam: Normal Inspection - Respiratory Exam Respiratory Exam: NORMAL BREATHING PATTERN - Cardiovascular Exam Cardiovascular Exam: REGULAR RHYTHM - GI/Abdominal Exam GI & Abdominal Exam: Soft, Normal Bowel Sounds - Extremities Exam Extremities Exam: Tenderness (L shoulder) Additional comments: Swelling L hand. R-L TKR. - Back Exam Back Exam: NORMAL INSPECTION - Neurological Exam Additional comments: Forgetful, confused, generalized weakness, no focal motor sensory deficit. - Psychiatric Exam Psychiatric exam: Normal Mood - Skin Skin Exam: Warm - Additional Findings Additional findings: F/U Abd/Pelv to rule out malignancy, Hematology consult appreciated, work up for anemia, GI f/u appreciated, suggested EGD-Colonoscopy as out Pt. Assessment and Plan (1) Anemia Status: Acute (2) Chest pain Status: Acute (3) History of CHF (congestive heart failure) Status: Chronic (4) Pain in left shoulder Status: Acute (5) History of permanent cardiac pacemaker placement Status: Chronic (6) History of BPH Status: Chronic (7) Altered mental status Status: Acute
[2017-07-05] MEDS ORDERED: Sodium Chloride 0.9% 50 ML IV ONE (15:56)
[2017-07-05] MEDS ORDERED: Iohexol 300 100 ML IJ ONE (15:56)
--- NOTE | 2017-07-05 17:12 | CT ---
PROCEDURE: CT Chest, Abdomen and Pelvis with intravenous contrast HISTORY: rule out occult malignancy COMPARISON: Comparison is made to the previous CT of the chest without contrast dated 10/07/2008 TECHNIQUE: IV dose administered: 95 mL Omnipaque 300. Axial and reformatted coronal and sagittal CT images of the chest abdomen and pelvis were obtained after IV and oral contrast administration. Radiation dose: Total exam DLP = 1358.35 mGy-cm. This CT exam was performed using one or more of the following dose reduction techniques: Automated exposure control, adjustment of the mA and/or kV according to patient size, and/or use of iterative reconstruction technique. FINDINGS: CT CHEST WITH CONTRAST: LUNGS: No evidence of mass lesion in the lungs. Partially calcified nodule at the left lung lower lobe measures 6.5 millimeter. . MEDIASTINUM: Unremarkable. Normal caliber aorta and pulmonary arterial trunk. No aortic dissection. Normal size heart. Left-sided anterior chest wall pacemaker with the wire seen extending to the right heart. LYMPH NODES: Unremarkable. PLEURA: Unremarkable. No pneumothorax. No pleural fluid. BONES: Unremarkable. OTHER FINDINGS: None. CT ABDOMEN AND PELVIS: LIVER: There is low-attenuation lesion at the inferior aspect of the right liver lobe measures 12 millimeter in the transverse diameter and 15 millimeter in the AP diameter may represent benign cyst. Otherwise the liver demonstrate homogeneous enhancement. GALLBLADDER AND BILE DUCTS: Gallbladder wall calcification or small gallstones seen. No evidence of acute cholecystitis PANCREAS: Unremarkable. No gross lesion or ductal dilatation. SPLEEN: Unremarkable. ADRENALS: Unremarkable. No mass. KIDNEYS AND URETERS: Unremarkable. No hydronephrosis. No solid mass. VASCULATURE: Unremarkable. No aortic aneurysm. BOWEL: Unremarkable. No obstruction. No gross mural thickening. Colonic diverticulosis are seen without evidence of diverticulitis. APPENDIX: No evidence of appendicitis. PERITONEUM: Unremarkable. No free fluid. No free air. LYMPH NODES: Unremarkable. No enlarged lymph nodes. BLADDER: Mild circumferential urinary bladder wall thickening is noted. REPRODUCTIVE: The prostate is normal in size. BONES: No acute fracture. Severe degenerative changes noted at the lower spine. OTHER FINDINGS: None. IMPRESSION: No evidence of mass lesion in the chest abdomen and pelvis. 6.5 millimeter partially calcified left lung lower lobe nodule. Interval follow-up reassessment may be obtained after 6 months. Low-attenuation lesion at the inferior aspect of the right liver lobe measures fluid density may represent benign cyst. Mild circumferential urinary bladder wall thickening.
--- NOTE | 2017-07-05 17:54 | CARD ---
APPROVED REPORT EKG Measurement Heart [id number] <Conclusion> Wide QRS rhythm with frequent premature ventricular complexes Left bundle branch block Probalbly NSR Abnormal ECG
[2017-07-06] MEDS: EPOETIN ALFA 10,000 UNIT/ML ML SC SCH (09:48)
--- NOTE | 2017-07-06 13:24 | CT ---
PROCEDURE: CT HEAD WITHOUT CONTRAST. HISTORY: increased confusion COMPARISON: Unenhanced head CT 02/01/2012. TECHNIQUE: Axial computed tomography images were obtained through the head/brain without intravenous contrast. Radiation dose: Total exam DLP = 904.38 mGy-cm. This CT exam was performed using one or more of the following dose reduction techniques: Automated exposure control, adjustment of the mA and/or kV according to patient size, and/or use of iterative reconstruction technique. FINDINGS: HEMORRHAGE: No intracranial hemorrhage. BRAIN: Diffuse cerebral atrophy and chronic microangiopathy are reiterated and remained quite mild. Chronic granuloma is again seen a calcified at the left frontal lobe anteriorly and prior right frontal craniotomy is again appreciated. VENTRICLES: Unremarkable. No hydrocephalus. CALVARIUM: Prior right frontal craniotomy again appreciated. PARANASAL SINUSES: Unremarkable as visualized. No significant inflammatory changes. MASTOID AIR CELLS: Unremarkable as visualized. No inflammatory changes. OTHER FINDINGS: None. IMPRESSION: Reiterates no stable age related neuro degenerative changes with a small calcified granuloma seen the left frontal cortex superficially. No acute intracranial findings by standard CT criteria. Follow-up CT or MRI are available as clinically warranted.
--- NOTE | 2017-07-06 21:00 | CP.PCM.PN ---
Subjective - Date & Time of Evaluation Date of Evaluation: 07/06/17 Time of Evaluation: 16:40 - Subjective Subjective: Feels weak CT C/A/P negative for significant pathology Objective - Vital Signs/Intake and Output Vital Signs (last 24 hours): Temp Pulse Resp BP Pulse Ox 98.0 F 90 18 95/66 L 98 07/06/17 20:10 07/06/17 20:10 07/06/17 20:10 07/06/17 20:10 07/06/17 20:10 - Medications Medications: Current Medications Carvedilol (Coreg) 6.25 mg PO BID [facility] Last Admin: 07/06/17 09:47 Dose: 6.25 mg Epoetin Jhon (Procrit) 10,000 unit SC TTS [facility] Last Admin: 07/06/17 09:48 Dose: 10,000 unit Tamsulosin HCl (Flomax) 0.4 mg PO DAILY [facility] Last Admin: 07/06/17 09:47 Dose: 0.4 mg - Labs Labs: 07/05/17 10:44 07/05/17 10:44 PT 18.6 Seconds (9.8-13.1) H 07/05/17 12:20 INR 1.6 (0.9-1.2) H 07/05/17 12:20 APTT 35.6 Seconds (25.6-37.1) 07/02/17 04:25 - Head Exam Head Exam: ATRAUMATIC - Eye Exam Eye Exam: Normal appearance - ENT Exam ENT Exam: Mucous Membranes Dry - Respiratory Exam Respiratory Exam: NORMAL BREATHING PATTERN - Cardiovascular Exam Cardiovascular Exam: +S1, +S2 - GI/Abdominal Exam GI & Abdominal Exam: Normal Bowel Sounds - Extremities Exam Extremities Exam: Normal Inspection Assessment and Plan (1) Anemia Assessment & Plan: anemia of chronic disease no deficiency in iron, b12, folate H/H improving with procrit Status: Acute (2) Elevated serum globulin level Assessment & Plan: monoclonal protein w/u negative Status: Acute (3) Coagulopathy Assessment & Plan: nutritional Status: Acute
--- NOTE | 2017-07-06 22:39 | CP.PCM.PN ---
Subjective - Date & Time of Evaluation Date of Evaluation: 07/06/17 Time of Evaluation: 13:20 - Subjective Subjective: F/U Anemia, Chest pain. Pt confused, weak Objective - Vital Signs/Intake and Output Vital Signs (last 24 hours): Temp Pulse Resp BP Pulse Ox 98.0 F 90 18 95/66 L 98 07/06/17 20:10 07/06/17 20:10 07/06/17 20:10 07/06/17 20:10 07/06/17 20:10 - Medications Medications: Current Medications Carvedilol (Coreg) 6.25 mg PO BID [facility] Last Admin: 07/06/17 09:47 Dose: 6.25 mg Epoetin Jhon (Procrit) 10,000 unit SC TTS [facility] Last Admin: 07/06/17 09:48 Dose: 10,000 unit Tamsulosin HCl (Flomax) 0.4 mg PO DAILY [facility] Last Admin: 07/06/17 09:47 Dose: 0.4 mg - Labs Labs: 07/05/17 10:44 07/05/17 10:44 PT 18.6 Seconds (9.8-13.1) H 07/05/17 12:20 INR 1.6 (0.9-1.2) H 07/05/17 12:20 APTT 35.6 Seconds (25.6-37.1) 07/02/17 04:25 - Constitutional Appears: Chronically Ill - Head Exam Head Exam: NORMAL INSPECTION - Eye Exam Eye Exam: PERRL - ENT Exam ENT Exam: Normal Exam - Neck Exam Neck Exam: Normal Inspection - Respiratory Exam Respiratory Exam: NORMAL BREATHING PATTERN - Cardiovascular Exam Cardiovascular Exam: REGULAR RHYTHM - GI/Abdominal Exam GI & Abdominal Exam: Soft, Normal Bowel Sounds - Extremities Exam Extremities Exam: Tenderness (L shoulder) Additional comments: R-L TKR - Back Exam Back Exam: NORMAL INSPECTION - Neurological Exam Additional comments: Confused, generalized weakness, no focal motor/sensory deficit. - Skin Skin Exam: Warm Assessment and Plan (1) Anemia Status: Acute (2) Chest pain Status: Acute (3) History of CHF (congestive heart failure) Status: Chronic (4) Pain in left shoulder Status: Acute (5) History of permanent cardiac pacemaker placement Status: Chronic (6) History of BPH Status: Chronic (7) Altered mental status Status: Acute - Assessment and Plan (Free Text) Plan: CT Abdomen no malignancy. F/U Ct Head, continue Procrit, Flomax, Coreg.
--- NOTE | 2017-07-07 14:33 | CP.PCM.CON ---
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 WORK UP PER ORDER Past Patient History - Past Medical History & Family History Past Medical History?: Yes - Past Social History Smoking Status: Former Smoker - CARDIAC Hx Congestive Heart Failure: Yes Hx Pacemaker: Yes - PULMONARY Hx Chronic Obstructive Pulmonary Disease (COPD): Yes - NEUROLOGICAL Hx Neurological Disorder: No - HEENT Hx HEENT Problems: No - RENAL Hx Chronic Kidney Disease: No - ENDOCRINE/METABOLIC Hx Endocrine Disorders: No - HEMATOLOGICAL/ONCOLOGICAL Hx Blood Disorders: No - INTEGUMENTARY Hx Dermatological Problems: No - MUSCULOSKELETAL/RHEUMATOLOGICAL Hx Musculoskeletal Disorders: Yes Hx Back Pain: Yes Hx Falls: No Hx Osteoarthritis: Yes - GASTROINTESTINAL Hx Gastrointestinal Disorders: No - GENITOURINARY/GYNECOLOGICAL Hx Genitourinary Disorders: Yes Hx Prostate Problems: Yes - PSYCHIATRIC Hx Psychophysiologic Disorder: No Hx Substance Use: No - SURGICAL HISTORY Hx Surgeries: Yes Hx Herniorrhaphy: Yes Hx Tonsillectomy: Yes Other/Comment: PACEMAKER - ANESTHESIA Hx Anesthesia: Yes Hx Anesthesia Reactions: No Hx Malignant Hyperthermia: No Meds Allergies/Adverse Reactions: Allergies Allergy/AdvReac Type Severity Reaction Status Date / Time No Known Allergies Allergy Verified 07/01/17 18:42 - Medications Medications: Current Medications Carvedilol (Coreg) 6.25 mg PO BID [facility] Last Admin: 07/07/17 09:01 Dose: 6.25 mg Epoetin Jhon (Procrit) 10,000 unit SC TTS [facility] Last Admin: 07/06/17 09:48 Dose: 10,000 unit Lorazepam (Ativan) 1 mg IVP ONCE ONE Stop: 07/08/17 10:01 Tamsulosin HCl (Flomax) 0.4 mg PO DAILY [facility] Last Admin: 07/07/17 09:01 Dose: 0.4 mg Results - Vital Signs Recent Vital Signs: Last Vital Signs Temp 97.5 F L 07/07/17 12:00 Pulse 96 H 07/07/17 12:00 Resp 18 07/07/17 12:00 BP 102/58 L 07/07/17 12:00 Pulse Ox 95 07/07/17 12:00 - Labs Result Diagrams: 07/05/17 10:44 07/05/17 10:44 Labs: Laboratory Results - last 24 hr 07/07/17 10:15 Vitamin B12 557
--- NOTE | 2017-07-07 16:27 | CP.PCM.PN ---
Subjective - Date & Time of Evaluation Date of Evaluation: 07/07/17 Time of Evaluation: 09:30 - Subjective Subjective: F/U Anemia / Chest pain. Pt more oriented, aware of time, place and person, c/o of pain in L shoulder. Objective - Vital Signs/Intake and Output Vital Signs (last 24 hours): Temp Pulse Resp BP Pulse Ox 97.9 F 95 H 18 97/62 L 97 07/07/17 15:38 07/07/17 15:38 07/07/17 15:38 07/07/17 15:38 07/07/17 15:38 - Medications Medications: Current Medications Carvedilol (Coreg) 6.25 mg PO BID [facility] Last Admin: 07/07/17 09:01 Dose: 6.25 mg Epoetin Jhon (Procrit) 10,000 unit SC TTS [facility] Last Admin: 07/06/17 09:48 Dose: 10,000 unit Lorazepam (Ativan) 1 mg IVP ONCE ONE Stop: 07/08/17 10:01 Tamsulosin HCl (Flomax) 0.4 mg PO DAILY [facility] Last Admin: 07/07/17 09:01 Dose: 0.4 mg - Labs Labs: 07/05/17 10:44 07/05/17 10:44 PT 18.6 Seconds (9.8-13.1) H 07/05/17 12:20 INR 1.6 (0.9-1.2) H 07/05/17 12:20 APTT 35.6 Seconds (25.6-37.1) 07/02/17 04:25 - Constitutional Appears: No Acute Distress - Head Exam Head Exam: NORMAL INSPECTION - Eye Exam Eye Exam: PERRL - ENT Exam ENT Exam: Normal Exam - Neck Exam Neck Exam: Normal Inspection - Respiratory Exam Respiratory Exam: NORMAL BREATHING PATTERN - Cardiovascular Exam Cardiovascular Exam: REGULAR RHYTHM - GI/Abdominal Exam GI & Abdominal Exam: Soft, Normal Bowel Sounds - Extremities Exam Extremities Exam: Joint Swelling (L hand), Tenderness (L shoulder) Additional comments: R-L TKR - Back Exam Back Exam: NORMAL INSPECTION - Neurological Exam Neurological Exam: Alert Additional comments: O x 2, Generalized weakness, no focal motor sensory deficit. - Psychiatric Exam Psychiatric exam: Normal Mood - Skin Skin Exam: Warm Assessment and Plan (1) Anemia Status: Acute (2) Chest pain Status: Acute (3) History of CHF (congestive heart failure) Status: Chronic (4) Pain in left shoulder Status: Acute (5) History of permanent cardiac pacemaker placement Status: Chronic (6) History of BPH Status: Chronic (7) Altered mental status Status: Acute - Assessment and Plan (Free Text) Plan: Change in mental status greatly improved, continue Procrit, Coreg, rest of Tx, TCU eval.
[2017-07-07 20:45] LABS: FOLATE 6.8 ng/mL
--- NOTE | 2017-07-07 23:13 | CP.PCM.PN ---
Subjective - Date & Time of Evaluation Date of Evaluation: 07/05/17 Time of Evaluation: 17:00 - Subjective Subjective: feeling fine w/u for anemia s/p LHCX Objective - Vital Signs/Intake and Output Vital Signs (last 24 hours): Temp Pulse Resp BP Pulse Ox 97.3 F L 95 H 18 100/64 99 07/07/17 19:16 07/07/17 19:16 07/07/17 19:16 07/07/17 19:16 07/07/17 19:16 - Medications Medications: Current Medications Carvedilol (Coreg) 6.25 mg PO BID [facility] Last Admin: 07/07/17 17:36 Dose: Not Given Epoetin Jhon (Procrit) 10,000 unit SC TTS [facility] Last Admin: 07/06/17 09:48 Dose: 10,000 unit Lorazepam (Ativan) 1 mg IVP ONCE ONE Stop: 07/08/17 10:01 Tamsulosin HCl (Flomax) 0.4 mg PO DAILY [facility] Last Admin: 07/07/17 09:01 Dose: 0.4 mg - Labs Labs: 07/05/17 10:44 07/05/17 10:44 PT 18.6 Seconds (9.8-13.1) H 07/05/17 12:20 INR 1.6 (0.9-1.2) H 07/05/17 12:20 APTT 35.6 Seconds (25.6-37.1) 07/02/17 04:25 - Constitutional Appears: Well - Head Exam Head Exam: ATRAUMATIC, NORMAL INSPECTION, NORMOCEPHALIC - Eye Exam Eye Exam: EOMI, Normal appearance, PERRL Pupil Exam: NORMAL ACCOMODATION, PERRL - ENT Exam ENT Exam: Mucous Membranes Moist, Normal Exam - Neck Exam Neck Exam: Full ROM, Normal Inspection. absent: Lymphadenopathy - Respiratory Exam Respiratory Exam: Clear to Ausculation Bilateral, NORMAL BREATHING PATTERN - Cardiovascular Exam Cardiovascular Exam: REGULAR RHYTHM, +S1, +S2, Murmur - GI/Abdominal Exam GI & Abdominal Exam: Soft, Normal Bowel Sounds. absent: Tenderness - Extremities Exam Extremities Exam: Full ROM, Normal Capillary Refill, Normal Inspection. absent : Joint Swelling, Pedal Edema - Back Exam Back Exam: NORMAL INSPECTION - Neurological Exam Neurological Exam: Alert, Awake, CN II-XII Intact, Normal Gait, Oriented x3 - Psychiatric Exam Psychiatric exam: Normal Affect, Normal Mood - Skin Skin Exam: Dry, Intact, Normal Color, Warm Assessment and Plan (1) Chest pain Status: Acute (2) Coagulopathy Status: Acute (3) Pain in left shoulder Status: Acute (4) History of CHF (congestive heart failure) Status: Chronic (5) History of permanent cardiac pacemaker placement Status: Chronic (6) Anemia Status: Acute
--- NOTE | 2017-07-07 23:15 | CP.PCM.PN ---
Subjective - Date & Time of Evaluation Date of Evaluation: 07/06/17 Time of Evaluation: 16:00 - Subjective Subjective: feeling tired and lethargic anemia w/u s/p LHCx Objective - Vital Signs/Intake and Output Vital Signs (last 24 hours): Temp Pulse Resp BP Pulse Ox 97.3 F L 95 H 18 100/64 99 07/07/17 19:16 07/07/17 19:16 07/07/17 19:16 07/07/17 19:16 07/07/17 19:16 - Medications Medications: Current Medications Carvedilol (Coreg) 6.25 mg PO BID [facility] Last Admin: 07/07/17 17:36 Dose: Not Given Epoetin Jhon (Procrit) 10,000 unit SC TTS [facility] Last Admin: 07/06/17 09:48 Dose: 10,000 unit Lorazepam (Ativan) 1 mg IVP ONCE ONE Stop: 07/08/17 10:01 Tamsulosin HCl (Flomax) 0.4 mg PO DAILY [facility] Last Admin: 07/07/17 09:01 Dose: 0.4 mg - Labs Labs: 07/05/17 10:44 07/05/17 10:44 PT 18.6 Seconds (9.8-13.1) H 07/05/17 12:20 INR 1.6 (0.9-1.2) H 07/05/17 12:20 APTT 35.6 Seconds (25.6-37.1) 07/02/17 04:25 - Constitutional Appears: Well - Head Exam Head Exam: ATRAUMATIC, NORMAL INSPECTION, NORMOCEPHALIC - Eye Exam Eye Exam: EOMI, Normal appearance, PERRL Pupil Exam: NORMAL ACCOMODATION, PERRL - ENT Exam ENT Exam: Mucous Membranes Moist, Normal Exam - Neck Exam Neck Exam: Full ROM, Normal Inspection. absent: Lymphadenopathy - Respiratory Exam Respiratory Exam: Clear to Ausculation Bilateral, NORMAL BREATHING PATTERN - Cardiovascular Exam Cardiovascular Exam: REGULAR RHYTHM, +S1, +S2. absent: Murmur - GI/Abdominal Exam GI & Abdominal Exam: Soft, Normal Bowel Sounds. absent: Tenderness - Extremities Exam Extremities Exam: Full ROM, Normal Capillary Refill, Normal Inspection. absent : Joint Swelling, Pedal Edema - Back Exam Back Exam: NORMAL INSPECTION - Neurological Exam Neurological Exam: Alert, Awake, CN II-XII Intact, Normal Gait, Oriented x3 - Psychiatric Exam Psychiatric exam: Normal Affect, Normal Mood - Skin Skin Exam: Dry, Intact, Normal Color, Warm Assessment and Plan (1) Chest pain Status: Acute (2) Coagulopathy Status: Acute (3) Pain in left shoulder Status: Acute (4) History of CHF (congestive heart failure) Status: Chronic (5) History of permanent cardiac pacemaker placement Status: Chronic (6) Anemia Status: Acute
--- NOTE | 2017-07-07 23:17 | CP.PCM.PN ---
Subjective - Date & Time of Evaluation Date of Evaluation: 07/07/17 Time of Evaluation: 23:16 - Subjective Subjective: s/p CT head - non-specific changes anemia w/u s/p LHcx - moderate CAD Objective - Vital Signs/Intake and Output Vital Signs (last 24 hours): Temp Pulse Resp BP Pulse Ox 97.3 F L 95 H 18 100/64 99 07/07/17 19:16 07/07/17 19:16 07/07/17 19:16 07/07/17 19:16 07/07/17 19:16 - Medications Medications: Current Medications Carvedilol (Coreg) 6.25 mg PO BID [facility] Last Admin: 07/07/17 17:36 Dose: Not Given Epoetin Jhon (Procrit) 10,000 unit SC TTS [facility] Last Admin: 07/06/17 09:48 Dose: 10,000 unit Lorazepam (Ativan) 1 mg IVP ONCE ONE Stop: 07/08/17 10:01 Tamsulosin HCl (Flomax) 0.4 mg PO DAILY [facility] Last Admin: 07/07/17 09:01 Dose: 0.4 mg - Labs Labs: 07/05/17 10:44 07/05/17 10:44 PT 18.6 Seconds (9.8-13.1) H 07/05/17 12:20 INR 1.6 (0.9-1.2) H 07/05/17 12:20 APTT 35.6 Seconds (25.6-37.1) 07/02/17 04:25 - Constitutional Appears: Well - Head Exam Head Exam: ATRAUMATIC, NORMAL INSPECTION, NORMOCEPHALIC - Eye Exam Eye Exam: EOMI, Normal appearance, PERRL Pupil Exam: NORMAL ACCOMODATION, PERRL - ENT Exam ENT Exam: Mucous Membranes Moist, Normal Exam - Neck Exam Neck Exam: Full ROM, Normal Inspection. absent: Lymphadenopathy - Respiratory Exam Respiratory Exam: Clear to Ausculation Bilateral, NORMAL BREATHING PATTERN - Cardiovascular Exam Cardiovascular Exam: REGULAR RHYTHM, +S1, +S2. absent: Murmur - GI/Abdominal Exam GI & Abdominal Exam: Soft, Normal Bowel Sounds. absent: Tenderness - Extremities Exam Extremities Exam: Full ROM, Normal Capillary Refill, Normal Inspection. absent : Joint Swelling, Pedal Edema - Back Exam Back Exam: NORMAL INSPECTION - Neurological Exam Neurological Exam: Alert, Awake, CN II-XII Intact, Normal Gait, Oriented x3 - Psychiatric Exam Psychiatric exam: Normal Affect, Normal Mood - Skin Skin Exam: Dry, Intact, Normal Color, Warm Assessment and Plan (1) Chest pain Status: Acute (2) Coagulopathy Status: Acute (3) Pain in left shoulder Status: Acute (4) History of CHF (congestive heart failure) Status: Chronic (5) History of permanent cardiac pacemaker placement Status: Chronic (6) Anemia Status: Acute (7) CAD (coronary artery disease) Status: Acute
--- NOTE | 2017-07-08 08:44 | CON ---
DATE: 07/07/2017 REASON FOR THE CONSULTATION: Change in mental status. CHIEF COMPLAINT: The patient was brought into [facility] with shortness of breath and weakness. 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 From a neurological point of view, I was called in to evaluate him for further management. HISTORY OF PRESENT ILLNESS: The patient is a 76-year-old right-handed, well-built male, usual state of health brought into [facility] with a history of shortness of breath and chest pain. During his workup, found anemia and monoclonal gammopathy associating with change in mental status. No history of fall, no history of head trauma, no history of involuntary movements, no history of bowel or bladder incontinence. This change in mental status is somewhat new for his age. PAST MEDICAL HISTORY: Hypertension, prostate hypertrophy and anemia. PERSONAL HISTORY: Denies smoking or alcohol use. ALLERGIES: NO KNOWN ALLERGIES. REVIEW OF SYSTEMS: Twelve-point systems had been reviewed. From neuro, change in mental status. MEDICATIONS: Lorazepam, carvedilol, Flomax and Procrit. PHYSICAL EXAMINATION: VITAL SIGNS: Blood pressure 102/58, mean arterial pressure of 72, respiratory rate 16, temperature afebrile. NECK: Supple. No carotid bruit. HEART: Sounds are regular. CHEST: Fair air entry. EXTREMITIES: No edema in legs. NEUROLOGICAL: The patient is up and eating his own dinner. He knows he is in the hospital. He does not know the year. Once he is discharged to the home, probably he will be knowing the year and month. He follows 1-step command. Significant right and left confusion. He could not be able to do poor calculation. However, he is comprehended, following simple commands only. He moves all 4 extremities. No confabulation, no hallucination, no suicidal ideation, no sign of depression. Cranial nerve examination: Visual field intact. Pupils reactive to light. Extraocular movement normal. No nystagmus. No facial sensory deficit. No facial asymmetry. Hearing is normal. Tongue is midline. Good gag. Motor examination: On an outstretched hand with eyes closed, no drift noted. No asterixis. Power is symmetric on either side. Deep tendon reflexes are absent throughout. Plantars are downgoing. Sensory examination: Significant bilateral distal symmetric sensorimotor neuropathy. Coordination: [id number] test is intact. Gait is deferred at this time. WORKUP: CT of the head showed significant frontotemporoparietal atrophy. Small vessel disease is also noted. EKG is normal sinus rhythm. Blood workup: WBC 4.2, hemoglobin 9.3, hematocrit 28.7, platelet 367. PTT 18.6. INR 1.6. Potassium 4.2, B12 of 567. GFR more than 60, hepatitis negative. The patient showed free kappa and lambda light chains which is positive in the higher level. CONCLUSION: The patient has been presenting with change in mental status which is new, all raise a possibility of it could be a metabolic verses toxic encephalopathy. 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 RECOMMENDATION: 1. MRI of the brain. 2. Blood workup as per the order. 3. EEG. 4. Treat anemia as defence force member other ranks, proper hydration. Fall precaution should be maintained. Jamil Britton MD
[2017-07-08 12:28] LABS: HEMATOCRIT 28.5 % (35.0-51.0); MEAN CELL VOLUME 82.3 fl (80.0-94.0); MEAN CORPUSCULAR HEMOGLOBIN 25.8 pg (27.0-31.0); MEAN CORPUSCULAR HGB CONC 31.4 g/dL (33.0-37.0); WHITE BLOOD COUNT 4.1 K/uL (4.8-10.8)
[2017-07-08 12:39] LABS: BLOOD UREA NITROGEN 13 mg/dl (9-20); CALCIUM 8.4 mg/dL (8.4-10.2); CARBON DIOXIDE 23 mmol/L (22-30); CHLORIDE 97 mmol/L (98-107); GFR AFRICAN-AMERICAN > 60; GLUCOSE,RANDOM 119 mg/dL (75-110); SODIUM 129 mmol/l (132-148)
--- NOTE | 2017-07-08 13:45 | RAD ---
PROCEDURE: Radiographs of the Left Shoulder HISTORY: pain COMPARISON: No prior. FINDINGS: BONES: Normal. No fracture. JOINTS: Normal. Glenohumeral and acromioclavicular joints preserved. No osteoarthritis. SOFT TISSUES: Normal. OTHER FINDINGS: None. IMPRESSION: No significant or acute findings to account for/ related to the clinical presentation.
[2017-07-08] MEDS: Sodium Chloride 0.9% 1,000 ML IV SCH (15:59)
--- NOTE | 2017-07-08 17:20 | CP.PCM.PN ---
Subjective - Date & Time of Evaluation Date of Evaluation: 07/08/17 Time of Evaluation: 11:00 - Subjective Subjective: F/U Anemia / Chest pain. Pt c/o of pain in left shoulder, with increased strength, alert oriented, Objective - Vital Signs/Intake and Output Vital Signs (last 24 hours): Temp Pulse Resp BP Pulse Ox 97.0 F L 99 H 18 112/72 100 07/08/17 17:00 07/08/17 17:00 07/08/17 17:00 07/08/17 17:00 07/08/17 17:00 - Medications Medications: Current Medications Carvedilol (Coreg) 6.25 mg PO BID [facility] Last Admin: 07/08/17 11:06 Dose: Not Given Epoetin Jhon (Procrit) 10,000 unit SC TTS [facility] Last Admin: 07/06/17 09:48 Dose: 10,000 unit Sodium Chloride (Sodium Chloride 0.9%) 1,000 mls @ 60 mls/hr IV .[id number] [facility] Stop: 07/09/17 15:38 Last Admin: 07/08/17 15:59 Dose: 60 mls/hr Tamsulosin HCl (Flomax) 0.4 mg PO DAILY [facility] Last Admin: 07/08/17 11:18 Dose: 0.4 mg - Labs Labs: 07/08/17 12:19 07/08/17 12:19 PT 18.6 Seconds (9.8-13.1) H 07/05/17 12:20 INR 1.6 (0.9-1.2) H 07/05/17 12:20 APTT 35.6 Seconds (25.6-37.1) 07/02/17 04:25 - Constitutional Appears: No Acute Distress - Head Exam Head Exam: NORMAL INSPECTION - Eye Exam Eye Exam: PERRL - ENT Exam ENT Exam: Normal Exam - Neck Exam Neck Exam: Normal Inspection - Respiratory Exam Respiratory Exam: NORMAL BREATHING PATTERN - Cardiovascular Exam Cardiovascular Exam: REGULAR RHYTHM - GI/Abdominal Exam GI & Abdominal Exam: Soft, Normal Bowel Sounds - Extremities Exam Extremities Exam: Joint Swelling (mild L had), Tenderness (L shoulder) - Back Exam Back Exam: NORMAL INSPECTION - Neurological Exam Neurological Exam: Alert, Oriented x3 Additional comments: Less weakness, no focal motor sensory deficit. - Psychiatric Exam Psychiatric exam: Normal Mood - Skin Skin Exam: Warm Assessment and Plan (1) Anemia Status: Acute (2) Chest pain Status: Acute (3) History of CHF (congestive heart failure) Status: Chronic (4) Pain in left shoulder Status: Acute (5) History of permanent cardiac pacemaker placement Status: Chronic (6) History of BPH Status: Chronic (7) Altered mental status Status: Acute - Assessment and Plan (Free Text) Plan: Brain MRI , f/u Neurology.
[2017-07-09 06:23] LABS: ALB/GLOB RATIO 0.9 (1.0-2.1); ALKALINE PHOSPHATASE 117 U/L (38-126); ALT/SGPT 33 U/L (21-72); AST/SGOT 37 U/L (17-59); BILIRUBIN,TOTAL 0.4 mg/dl (0.2-1.3); BLOOD UREA NITROGEN 10 mg/dl (9-20); CALCIUM 8.8 mg/dL (8.4-10.2); CARBON DIOXIDE 24 mmol/L (22-30); CHLORIDE 97 mmol/L (98-107); GFR AFRICAN-AMERICAN > 60; GLUCOSE,RANDOM 100 mg/dL (75-110); POTASSIUM 4.4 MMOL/L (3.6-5.0); SODIUM 130 mmol/l (132-148); TOTAL PROTEIN 7.7 G/DL (6.3-8.2)
[2017-07-09] MEDS: EPOETIN ALFA 10,000 UNIT/ML ML SC SCH (08:07)
[2017-07-09] MEDS: Sodium Chloride 0.9% 1,000 ML IV SCH (08:17)
[2017-07-09] MEDS ORDERED: Sodium Chloride 0.9% 250 ML IV ONE (10:59)
--- NOTE | 2017-07-09 12:05 | CARD ---
APPROVED REPORT EKG Measurement Heart [id number] <Conclusion> P waves difficult to identify (Suspect) Sinus rhythm Left bundle branch block Abnormal ECG
[2017-07-09 13:02] LABS: MEAN CORPUSCULAR HEMOGLOBIN 26.2 pg (27.0-31.0); MEAN CORPUSCULAR HGB CONC 31.9 g/dL (33.0-37.0); WHITE BLOOD COUNT 4.3 K/uL (4.8-10.8)
[2017-07-09 13:13] LABS: BLOOD UREA NITROGEN 11 mg/dl (9-20); CALCIUM 7.9 mg/dL (8.4-10.2); CARBON DIOXIDE 21 mmol/L (22-30); CHLORIDE 100 mmol/L (98-107); GFR AFRICAN-AMERICAN > 60; GLUCOSE,RANDOM 113 mg/dL (75-110); POTASSIUM 3.6 MMOL/L (3.6-5.0); SODIUM 128 mmol/l (132-148)
--- NOTE | 2017-07-09 13:18 | CP.PCM.PN ---
Subjective - Date & Time of Evaluation Date of Evaluation: 07/08/17 Time of Evaluation: 21:00 - Subjective Subjective: More oriented, reports to feeling better Objective - Vital Signs/Intake and Output Vital Signs (last 24 hours): Temp Pulse Resp BP Pulse Ox 97.1 F L 94 H 18 103/61 100 07/09/17 12:00 07/09/17 12:00 07/09/17 12:00 07/09/17 12:00 07/09/17 12:00 - Medications Medications: Current Medications Acetaminophen (Tylenol 325mg Tab) 650 mg PO Q4 PRN PRN Reason: Pain, Mild (1-3) Last Admin: 07/09/17 08:11 Dose: 650 mg Epoetin Jhon (Procrit) 10,000 unit SC TTS [facility] Last Admin: 07/09/17 08:07 Dose: 10,000 unit Sodium Chloride (Sodium Chloride 0.9%) 1,000 mls @ 60 mls/hr IV .[id number] [facility] Stop: 07/09/17 15:38 Last Admin: 07/09/17 08:17 Dose: 60 mls/hr Metoprolol Succinate (Toprol Xl) 12.5 mg PO DAILY [facility] Tamsulosin HCl (Flomax) 0.4 mg PO DAILY [facility] Last Admin: 07/09/17 08:07 Dose: 0.4 mg - Labs Labs: 07/09/17 12:49 07/09/17 12:49 PT 18.6 Seconds (9.8-13.1) H 07/05/17 12:20 INR 1.6 (0.9-1.2) H 07/05/17 12:20 APTT 35.6 Seconds (25.6-37.1) 07/02/17 04:25 - Head Exam Head Exam: ATRAUMATIC - Eye Exam Eye Exam: Normal appearance - ENT Exam ENT Exam: Mucous Membranes Dry - Respiratory Exam Respiratory Exam: NORMAL BREATHING PATTERN - Cardiovascular Exam Cardiovascular Exam: +S1, +S2 - GI/Abdominal Exam GI & Abdominal Exam: Normal Bowel Sounds Assessment and Plan (1) Anemia Assessment & Plan: anemia of chronic disease on Procrit Status: Acute (2) Elevated serum globulin level Assessment & Plan: monoclonal w/u negative Status: Acute (3) Coagulopathy Assessment & Plan: mixing study sent Status: Acute
--- NOTE | 2017-07-09 13:19 | CP.PCM.PN ---
Subjective - Date & Time of Evaluation Date of Evaluation: 07/09/17 Time of Evaluation: 11:00 - Subjective Subjective: Seen sitting in chair, reports to feeling better Objective - Vital Signs/Intake and Output Vital Signs (last 24 hours): Temp Pulse Resp BP Pulse Ox 97.1 F L 94 H 18 103/61 100 07/09/17 12:00 07/09/17 12:00 07/09/17 12:00 07/09/17 12:00 07/09/17 12:00 - Medications Medications: Current Medications Acetaminophen (Tylenol 325mg Tab) 650 mg PO Q4 PRN PRN Reason: Pain, Mild (1-3) Last Admin: 07/09/17 08:11 Dose: 650 mg Epoetin Jhon (Procrit) 10,000 unit SC TTS [facility] Last Admin: 07/09/17 08:07 Dose: 10,000 unit Sodium Chloride (Sodium Chloride 0.9%) 1,000 mls @ 60 mls/hr IV .[id number] [facility] Stop: 07/09/17 15:38 Last Admin: 07/09/17 08:17 Dose: 60 mls/hr Metoprolol Succinate (Toprol Xl) 12.5 mg PO DAILY [facility] Tamsulosin HCl (Flomax) 0.4 mg PO DAILY [facility] Last Admin: 07/09/17 08:07 Dose: 0.4 mg - Labs Labs: 07/09/17 12:49 07/09/17 12:49 PT 18.6 Seconds (9.8-13.1) H 07/05/17 12:20 INR 1.6 (0.9-1.2) H 07/05/17 12:20 APTT 35.6 Seconds (25.6-37.1) 07/02/17 04:25 - Head Exam Head Exam: ATRAUMATIC - Eye Exam Eye Exam: Normal appearance - ENT Exam ENT Exam: Mucous Membranes Dry - Respiratory Exam Respiratory Exam: NORMAL BREATHING PATTERN - Cardiovascular Exam Cardiovascular Exam: +S1, +S2 - GI/Abdominal Exam GI & Abdominal Exam: Normal Bowel Sounds Assessment and Plan (1) Anemia Assessment & Plan: chronic disease given elevated ferritin CT scan negative for significant pathology FOBT negative, no iron, b12, folate deficiency on procrit Status: Acute (2) Elevated serum globulin level Assessment & Plan: no evidence of monoclonal protein Status: Acute (3) Coagulopathy Assessment & Plan: mixing study sent Status: Acute
--- NOTE | 2017-07-09 15:19 | CP.PCM.PN ---
Subjective - Date & Time of Evaluation Date of Evaluation: 07/09/17 Time of Evaluation: 09:30 - Subjective Subjective: F/U Anemia/ Chest pain. Pt alert but became very weak today, found hypotensive BP 80/50, pain in L shoulder improved. Objective - Vital Signs/Intake and Output Vital Signs (last 24 hours): Temp Pulse Resp BP Pulse Ox 97.1 F L 94 H 18 103/61 100 07/09/17 12:00 07/09/17 12:00 07/09/17 12:00 07/09/17 12:00 07/09/17 12:00 - Medications Medications: Current Medications Acetaminophen (Tylenol 325mg Tab) 650 mg PO Q4 PRN PRN Reason: Pain, Mild (1-3) Last Admin: 07/09/17 08:11 Dose: 650 mg Epoetin Jhon (Procrit) 10,000 unit SC TTS [facility] Last Admin: 07/09/17 08:07 Dose: 10,000 unit Sodium Chloride (Sodium Chloride 0.9%) 1,000 mls @ 60 mls/hr IV .[id number] [facility] Stop: 07/09/17 15:38 Last Admin: 07/09/17 08:17 Dose: 60 mls/hr Metoprolol Succinate (Toprol Xl) 12.5 mg PO DAILY [facility] Tamsulosin HCl (Flomax) 0.4 mg PO DAILY [facility] Last Admin: 07/09/17 08:07 Dose: 0.4 mg - Labs Labs: 07/09/17 12:49 07/09/17 12:49 PT 18.6 Seconds (9.8-13.1) H 07/05/17 12:20 INR 1.6 (0.9-1.2) H 07/05/17 12:20 APTT 35.6 Seconds (25.6-37.1) 07/02/17 04:25 - Constitutional Appears: No Acute Distress, Chronically Ill - Head Exam Head Exam: NORMAL INSPECTION - Eye Exam Eye Exam: PERRL - ENT Exam ENT Exam: Normal Exam - Neck Exam Neck Exam: Normal Inspection - Respiratory Exam Respiratory Exam: NORMAL BREATHING PATTERN - Cardiovascular Exam Cardiovascular Exam: REGULAR RHYTHM - GI/Abdominal Exam GI & Abdominal Exam: Soft, Normal Bowel Sounds - Extremities Exam Extremities Exam: Tenderness (minimal R shoulder and L hand) - Back Exam Back Exam: NORMAL INSPECTION - Neurological Exam Neurological Exam: Alert, Oriented x3 Additional comments: No focal motor sensory deficit, generalized weakness. - Psychiatric Exam Psychiatric exam: Normal Mood - Skin Skin Exam: Warm Assessment and Plan (1) Anemia Status: Acute (2) Chest pain Status: Acute (3) History of CHF (congestive heart failure) Status: Chronic (4) Pain in left shoulder Status: Acute (5) History of permanent cardiac pacemaker placement Status: Chronic (6) History of BPH Status: Chronic (7) Hypotension Status: Acute - Assessment and Plan (Free Text) Plan: NS bolus, troponin 3, EKG, f/u CBC, SMA 7 stat Pt was seen by Cardiology, DC Coreg, start with Metropolol 12.5
--- NOTE | 2017-07-09 15:43 | CP.PCM.PN ---
Subjective - Date & Time of Evaluation Date of Evaluation: 07/09/17 Time of Evaluation: 09:00 - Subjective Subjective: no overnight events Objective - Vital Signs/Intake and Output Vital Signs (last 24 hours): Temp Pulse Resp BP Pulse Ox 97.1 F L 94 H 18 103/61 100 07/09/17 12:00 07/09/17 12:00 07/09/17 12:00 07/09/17 12:00 07/09/17 12:00 - Medications Medications: Current Medications Acetaminophen (Tylenol 325mg Tab) 650 mg PO Q4 PRN PRN Reason: Pain, Mild (1-3) Last Admin: 07/09/17 08:11 Dose: 650 mg Epoetin Jhon (Procrit) 10,000 unit SC TTS [facility] Last Admin: 07/09/17 08:07 Dose: 10,000 unit Metoprolol Succinate (Toprol Xl) 12.5 mg PO DAILY [facility] Tamsulosin HCl (Flomax) 0.4 mg PO DAILY [facility] Last Admin: 07/09/17 08:07 Dose: 0.4 mg - Labs Labs: 07/09/17 12:49 07/09/17 12:49 PT 18.6 Seconds (9.8-13.1) H 07/05/17 12:20 INR 1.6 (0.9-1.2) H 07/05/17 12:20 APTT 35.6 Seconds (25.6-37.1) 07/02/17 04:25 - Head Exam Head Exam: NORMAL INSPECTION - Respiratory Exam Respiratory Exam: NORMAL BREATHING PATTERN - Cardiovascular Exam Cardiovascular Exam: REGULAR RHYTHM - GI/Abdominal Exam GI & Abdominal Exam: Soft, Normal Bowel Sounds Assessment and Plan - Assessment and Plan (Free Text) Assessment: 76 yo male with anemia likely chronic disease will need egd colonoscopy as outpatient dc planning
--- NOTE | 2017-07-09 19:07 | CP.PCM.PN ---
Subjective - Date & Time of Evaluation Date of Evaluation: 07/09/17 Time of Evaluation: 19:06 - Subjective Subjective: episode of hypotension today confused today Objective - Vital Signs/Intake and Output Vital Signs (last 24 hours): Temp Pulse Resp BP Pulse Ox 98.2 F 85 17 101/61 100 07/09/17 16:07 07/09/17 16:07 07/09/17 16:07 07/09/17 16:07 07/09/17 16:07 - Medications Medications: Current Medications Acetaminophen (Tylenol 325mg Tab) 650 mg PO Q4 PRN PRN Reason: Pain, Mild (1-3) Last Admin: 07/09/17 08:11 Dose: 650 mg Alprazolam (Xanax) 0.25 mg PO Q12 PRN PRN Reason: Anxiety Stop: 07/16/17 16:45 Last Admin: 07/09/17 17:09 Dose: 0.25 mg Epoetin Jhon (Procrit) 10,000 unit SC TTS [facility] Last Admin: 07/09/17 08:07 Dose: 10,000 unit Metoprolol Succinate (Toprol Xl) 12.5 mg PO DAILY [facility] Tamsulosin HCl (Flomax) 0.4 mg PO DAILY [facility] Last Admin: 07/09/17 08:07 Dose: 0.4 mg - Labs Labs: 07/09/17 12:49 07/09/17 12:49 PT 18.6 Seconds (9.8-13.1) H 07/05/17 12:20 INR 1.6 (0.9-1.2) H 07/05/17 12:20 APTT 35.6 Seconds (25.6-37.1) 07/02/17 04:25 - Constitutional Appears: Well - Head Exam Head Exam: ATRAUMATIC, NORMAL INSPECTION, NORMOCEPHALIC - Eye Exam Eye Exam: EOMI, Normal appearance, PERRL Pupil Exam: NORMAL ACCOMODATION, PERRL - ENT Exam ENT Exam: Mucous Membranes Dry, Normal Exam - Neck Exam Neck Exam: Full ROM, Normal Inspection. absent: Lymphadenopathy - Respiratory Exam Respiratory Exam: Clear to Ausculation Bilateral, Rales, NORMAL BREATHING PATTERN - Cardiovascular Exam Cardiovascular Exam: REGULAR RHYTHM, +S1, +S2, Murmur - GI/Abdominal Exam GI & Abdominal Exam: Soft, Normal Bowel Sounds. absent: Tenderness - Extremities Exam Extremities Exam: Full ROM, Normal Capillary Refill, Normal Inspection. absent : Joint Swelling, Pedal Edema - Back Exam Back Exam: NORMAL INSPECTION - Neurological Exam Neurological Exam: Alert, Awake, CN II-XII Intact, Normal Gait, Oriented x3 - Psychiatric Exam Psychiatric exam: Normal Affect, Normal Mood - Skin Skin Exam: Dry, Intact, Normal Color, Warm Assessment and Plan (1) Chest pain Assessment & Plan: etiology ? moderate CAD med rx asa, bb , statins Status: Acute (2) Coagulopathy Status: Acute (3) Pain in left shoulder Status: Acute (4) History of CHF (congestive heart failure) Status: Chronic (5) History of permanent cardiac pacemaker placement Status: Chronic (6) Anemia Status: Acute (7) CAD (coronary artery disease) Status: Acute
[2017-07-10] MEDS: Metoprolol Succinate 25 mg XL Tab PO SCH (09:44)
--- NOTE | 2017-07-10 10:14 | CP.PCM.PN ---
Subjective - Date & Time of Evaluation Date of Evaluation: 07/10/17 Time of Evaluation: 10:14 Objective - Vital Signs/Intake and Output Vital Signs (last 24 hours): Temp Pulse Resp BP Pulse Ox 98.5 F 67 20 102/63 98 07/10/17 08:00 07/10/17 09:44 07/10/17 08:00 07/10/17 09:44 07/10/17 08:00 - Medications Medications: Current Medications Acetaminophen (Tylenol 325mg Tab) 650 mg PO Q4 PRN PRN Reason: Pain, Mild (1-3) Last Admin: 07/09/17 08:11 Dose: 650 mg Alprazolam (Xanax) 0.25 mg PO Q12 PRN PRN Reason: Anxiety Stop: 07/16/17 16:45 Last Admin: 07/09/17 17:09 Dose: 0.25 mg Epoetin Jhon (Procrit) 10,000 unit SC TTS [facility] Last Admin: 07/09/17 08:07 Dose: 10,000 unit Metoprolol Succinate (Toprol Xl) 12.5 mg PO DAILY [facility] Last Admin: 07/10/17 09:44 Dose: 12.5 mg Tamsulosin HCl (Flomax) 0.4 mg PO DAILY [facility] Last Admin: 07/10/17 09:43 Dose: 0.4 mg - Labs Labs: 07/09/17 12:49 07/09/17 12:49 PT 18.6 Seconds (9.8-13.1) H 07/05/17 12:20 INR 1.6 (0.9-1.2) H 07/05/17 12:20 APTT 35.6 Seconds (25.6-37.1) 07/02/17 04:25 - Constitutional Appears: Well - Head Exam Head Exam: ATRAUMATIC, NORMAL INSPECTION, NORMOCEPHALIC - Eye Exam Eye Exam: EOMI, Normal appearance, PERRL Pupil Exam: NORMAL ACCOMODATION, PERRL - ENT Exam ENT Exam: Mucous Membranes Moist, Normal Exam - Neck Exam Neck Exam: Full ROM, Normal Inspection. absent: Lymphadenopathy - Respiratory Exam Respiratory Exam: Clear to Ausculation Bilateral, NORMAL BREATHING PATTERN - Cardiovascular Exam Cardiovascular Exam: REGULAR RHYTHM, +S1, +S2. absent: Murmur - GI/Abdominal Exam GI & Abdominal Exam: Soft, Normal Bowel Sounds. absent: Tenderness - Rectal Exam Rectal Exam: NORMAL INSPECTION - Exam Exam: Circumcision, NORMAL INSPECTION External exam: NORMAL EXTERNAL EXAM Speculum exam: NORMAL SPECULUM EXAM Bimanual exam: NORMAL BIMANUAL EXAM - Extremities Exam Extremities Exam: Full ROM, Normal Capillary Refill, Normal Inspection. absent : Joint Swelling, Pedal Edema - Back Exam Back Exam: NORMAL INSPECTION - Neurological Exam Neurological Exam: Alert, Awake, CN II-XII Intact, Normal Gait, Oriented x3 - Psychiatric Exam Psychiatric exam: Normal Affect, Normal Mood - Skin Skin Exam: Dry, Intact, Normal Color, Warm Assessment and Plan (1) Chest pain Status: Acute (2) Coagulopathy Status: Acute (3) Pain in left shoulder Status: Acute (4) History of CHF (congestive heart failure) Status: Chronic (5) History of permanent cardiac pacemaker placement Status: Chronic (6) Anemia Status: Acute (7) CAD (coronary artery disease) Status: Acute
--- NOTE | 2017-07-10 13:00 | CP.PCM.PCO ---
Assessment/Plan - Assessment/Plan Assessment (Free Text): Unable to get consent for blood transfusion from Arminda SHEN. Blood transfusion on hold until consent obtained. RN aware to call Dr Mueller if comes to hospital . - Problems Patient Problems: Problem List (Active/Current) Problem Status Onset Code Altered mental status Acute R41.82 Anemia Acute D64.9 CAD (coronary artery disease) Acute I25.10 Chest pain Acute R07.9 Coagulopathy Acute D68.9 Elevated serum globulin level Acute R77.1 Leukopenia Acute D72.819 Pain in left shoulder Acute M25.512 History of BPH Chronic Z87.438 History of CHF (congestive heart failure) Chronic Z86.79 History of permanent cardiac pacemaker placement Chronic Z95.0
--- NOTE | 2017-07-10 15:36 | CARD ---
APPROVED REPORT Protocol: LEXISCAN Test Type: Stress Nuclear Medications: Coreg 6.25 mg Procrit 10.000 Flomax 0.4 mg Medical History: CHF, COPD, FORMER SMOKER, BACK PAIN, OSTEOARTHRITIS, PROSTATE PROBLEMS, PACEMAKER Target HR: 144 bpm Resting ECG: left bundle branch block Resting Heart Rate: 93 bpm Resting Blood Pressure: 129/87mmHg submaximum (85%): 122 bpm TEST SUMMARY PREINJECTPRE-INJEC73:[id number]/87.21. [id number]/87.17. INJECTIONNS FLUSH00:[id number]/87.17. INJECTIONNUC MED00:[id number]/73.16. [id number]/78.27. PROCEDURE Pharmacologic stress testing was performed using 0.4mg per 5ml of regadenoson given intravenously over 7-10 seconds. Reversal agent aminophyline 50 mg, given intravenously for Chest Pain. POST EXERCISE Reason for Termination: COMPLETED PROTOCOL Target HR: No Max HR: 114 bpm 83% of Maximum Predicted HR: 144 bpm Exercise duration: 00:50 min:sec, 0 Stage Exercise capacity: 1.0METs Max Blood Pressure: 144/88mmHg Blood Pressure response to exercise: NA Heart Rate response to exercise: NA Chest Pain: Yes, 9/10 WITH LEXISCAN INFUSION Angina index: 0 Arrhythmia: Yes, ventricular premature beats ST Change: No, none Deviation: 0 mm EXAM: Myocardial Perfusion REST/STRESS Image QualityGood Imaging Protocol The imaging protocol used to acquire images was Rest Tc-99m/stress Tc-99m 1 day Rest Spect myocardial perfusion imaging was performed in supine position 60 minutes following the injection of 10 mCi of Tc-99 Myoview. Time of rest injection: 8:00 Time of rest imagin:00 At peak stress, the patient was injected intravenously with 30mCi of Tc-99 tetrofosmin after an infusion time of minutes and seconds. Time of stress injection: 11:21 Time of stress imagin:19 Gated Stress Spect was performed 120 minutes after intravenous Tc-99 Myoview injection. The images were gated to evaluate regional wall motion and calculate ventricular ejection fraction. NUCLEAR IMAGE INTERPRETATION Study quality was fair. Left Ventricular size was Normal at Rest and Stress. Lung uptake was Normal. Left Ventricular ejection fraction is 49%. LV Perfusion 1 Perfusion Defect Location: mid inferoseptal Perfusion Defect Size: Large (> or equal to 5 segments) Perfusion Defect Severity: Severe Type of Perfusion Defect: Partially Reversible CONCLUSION 1. Large sized severe intensity partially reversible inferoseptal and anteroapical ischemia 2. Low normal LVEF Recommendation - Will need further evaluation with invasive work-up i.e.cardiac catheterization for further risk stratification
--- NOTE | 2017-07-10 17:46 | CP.PCM.PN ---
Subjective - Date & Time of Evaluation Date of Evaluation: 07/10/17 Time of Evaluation: 11:40 - Subjective Subjective: F/U Anemia / Chestpain. No A/D, appear confused. Objective - Vital Signs/Intake and Output Vital Signs (last 24 hours): Temp Pulse Resp BP Pulse Ox 99.0 F 99 H 20 104/62 100 07/10/17 15:58 07/10/17 15:58 07/10/17 15:58 07/10/17 15:58 07/10/17 15:58 - Medications Medications: Current Medications Acetaminophen (Tylenol 325mg Tab) 650 mg PO Q4 PRN PRN Reason: Pain, Mild (1-3) Last Admin: 07/09/17 08:11 Dose: 650 mg Alprazolam (Xanax) 0.25 mg PO Q12 PRN PRN Reason: Anxiety Stop: 07/16/17 16:45 Last Admin: 07/09/17 17:09 Dose: 0.25 mg Epoetin Jhon (Procrit) 10,000 unit SC TTS [facility] Last Admin: 07/09/17 08:07 Dose: 10,000 unit Metoprolol Succinate (Toprol Xl) 12.5 mg PO DAILY [facility] Last Admin: 07/10/17 09:44 Dose: 12.5 mg Tamsulosin HCl (Flomax) 0.4 mg PO DAILY [facility] Last Admin: 07/10/17 09:43 Dose: 0.4 mg - Labs Labs: 07/09/17 12:49 07/09/17 12:49 PT 18.6 Seconds (9.8-13.1) H 07/05/17 12:20 INR 1.6 (0.9-1.2) H 07/05/17 12:20 APTT 35.6 Seconds (25.6-37.1) 07/02/17 04:25 - Constitutional Appears: No Acute Distress, Chronically Ill - Head Exam Head Exam: NORMAL INSPECTION - Eye Exam Eye Exam: PERRL - ENT Exam ENT Exam: Normal Exam - Neck Exam Neck Exam: Normal Inspection - Respiratory Exam Respiratory Exam: NORMAL BREATHING PATTERN - Cardiovascular Exam Cardiovascular Exam: REGULAR RHYTHM - GI/Abdominal Exam GI & Abdominal Exam: Soft, Normal Bowel Sounds - Extremities Exam Extremities Exam: Tenderness (minimal R shoulder, L hand) - Back Exam Back Exam: NORMAL INSPECTION - Neurological Exam Additional comments: Confused, no focal motor sensory deficit, generalized weakness. - Skin Skin Exam: Warm Assessment and Plan (1) Anemia Status: Acute (2) Chest pain Status: Acute (3) Metabolic encephalopathy Status: Acute (4) History of CHF (congestive heart failure) Status: Chronic (5) Pain in left shoulder Status: Acute (6) History of permanent cardiac pacemaker placement Status: Chronic (7) History of BPH Status: Chronic - Assessment and Plan (Free Text) Plan: General Maintenance Engineer suggested 2 U PRBC today, continue rest of Tx.
[2017-07-10 18:30] LABS: PROTHROMBIN TIME 14.4 sec (9.0-11.5); PT MIX 12.4 sec (< OR = 11.5); PTT-LA 52 sec (< OR = 40)
--- NOTE | 2017-07-10 22:51 | PN ---
DATE: 07/10/2017 NEUROLOGICAL PROBLEM: Toxic versus metabolic encephalopathy. PHYSICAL EXAMINATION: GENERAL: The patient is awake. He knows he is in the hospital. He knows the President. He knows the year. VITAL SIGNS: Blood pressure 104/62, mean arterial pressure of 76, respiratory rate 16, and temperature afebrile. NEUROLOGIC: Mild right and left confusion; however, he moves all four extremities. No involuntary movements. No asterixis. Cranial nerve examination seems to be intact. LABORATORY DATA: He is recommended workup. MRI is not done because of the pacemaker. Today's blood workup: WBC is 4.3, hemoglobin 8.1, hematocrit 25.0, and platelets 318. Sodium 128, potassium 3.6, chloride 100, bicarbonate 21, GFR more than 60. Patient showed decreased globulin and B12 is 576, TSH 1.01, PSA 0.095. 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 RECOMMENDATION: EEG to be followed. I do not think that the patient does have any focal JOY OPERATOR pathology changing his mental status. This is all related to his underlying toxic and metabolic issues. The patient will be followed closely with you. Jamil Britton MD
[2017-07-11 05:48] LABS: HEMATOCRIT 28.1 % (35.0-51.0); MEAN CELL VOLUME 81.5 fl (80.0-94.0); MEAN CORPUSCULAR HEMOGLOBIN 25.3 pg (27.0-31.0); RED CELL DISTRIBUTION WIDTH 16.3 % (11.5-14.5); WHITE BLOOD COUNT 5.2 K/uL (4.8-10.8)
[2017-07-11 06:46] LABS: BLOOD UREA NITROGEN 9 mg/dl (9-20); CALCIUM 8.5 mg/dL (8.4-10.2); CARBON DIOXIDE 24 mmol/L (22-30); CHLORIDE 95 mmol/L (98-107); GFR AFRICAN-AMERICAN > 60; GLUCOSE,RANDOM 100 mg/dL (75-110); POTASSIUM 4.4 MMOL/L (3.6-5.0); SODIUM 127 mmol/l (132-148)
--- NOTE | 2017-07-11 08:09 | CP.PCM.PN ---
Subjective - Date & Time of Evaluation Date of Evaluation: 07/11/17 Time of Evaluation: 08:09 Objective - Vital Signs/Intake and Output Vital Signs (last 24 hours): Temp Pulse Resp BP Pulse Ox 98.2 F 97 H 18 97/62 L 97 07/11/17 05:12 07/11/17 05:12 07/11/17 05:12 07/11/17 05:12 07/11/17 05:12 - Medications Medications: Current Medications Acetaminophen (Tylenol 325mg Tab) 650 mg PO Q4 PRN PRN Reason: Pain, Mild (1-3) Last Admin: 07/09/17 08:11 Dose: 650 mg Alprazolam (Xanax) 0.25 mg PO Q12 PRN PRN Reason: Anxiety Stop: 07/16/17 16:45 Last Admin: 07/09/17 17:09 Dose: 0.25 mg Epoetin Jhon (Procrit) 10,000 unit SC TTS [facility] Last Admin: 07/09/17 08:07 Dose: 10,000 unit Metoprolol Succinate (Toprol Xl) 12.5 mg PO DAILY [facility] Last Admin: 07/10/17 09:44 Dose: 12.5 mg Tamsulosin HCl (Flomax) 0.4 mg PO DAILY [facility] Last Admin: 07/10/17 09:43 Dose: 0.4 mg - Labs Labs: 07/11/17 04:30 07/11/17 04:30 PT 18.6 Seconds (9.8-13.1) H 07/05/17 12:20 INR 1.6 (0.9-1.2) H 07/05/17 12:20 APTT 35.6 Seconds (25.6-37.1) 07/02/17 04:25 - Constitutional Appears: Well - Head Exam Head Exam: ATRAUMATIC, NORMAL INSPECTION, NORMOCEPHALIC - Eye Exam Eye Exam: EOMI, Normal appearance, PERRL Pupil Exam: NORMAL ACCOMODATION, PERRL - ENT Exam ENT Exam: Mucous Membranes Moist, Normal Exam - Neck Exam Neck Exam: Full ROM, Normal Inspection. absent: Lymphadenopathy - Respiratory Exam Respiratory Exam: Clear to Ausculation Bilateral, NORMAL BREATHING PATTERN - Cardiovascular Exam Cardiovascular Exam: REGULAR RHYTHM, +S1, +S2. absent: Murmur - GI/Abdominal Exam GI & Abdominal Exam: Soft, Normal Bowel Sounds. absent: Tenderness - Extremities Exam Extremities Exam: Full ROM, Normal Capillary Refill, Normal Inspection. absent : Joint Swelling, Pedal Edema - Back Exam Back Exam: NORMAL INSPECTION - Neurological Exam Neurological Exam: Alert, Awake, CN II-XII Intact, Normal Gait, Oriented x3 - Psychiatric Exam Psychiatric exam: Normal Affect, Normal Mood - Skin Skin Exam: Dry, Intact, Normal Color, Warm Assessment and Plan (1) Chest pain Status: Acute (2) Coagulopathy Status: Acute (3) Pain in left shoulder Status: Acute (4) History of CHF (congestive heart failure) Status: Chronic (5) History of permanent cardiac pacemaker placement Status: Chronic (6) Anemia Status: Acute (7) CAD (coronary artery disease) Status: Acute
[2017-07-11] MEDS: Metoprolol Succinate 25 mg XL Tab PO SCH (09:23)
--- NOTE | 2017-07-11 14:31 | CP.PCM.PN ---
Subjective - Date & Time of Evaluation Date of Evaluation: 07/11/17 Time of Evaluation: 13:50 - Subjective Subjective: F/U Metabolic Encephalopathy. Confused , generalized weakness Objective - Vital Signs/Intake and Output Vital Signs (last 24 hours): Temp Pulse Resp BP Pulse Ox 98.3 F 78 20 98/61 L 99 07/11/17 12:49 07/11/17 12:49 07/11/17 12:49 07/11/17 12:49 07/11/17 12:49 - Medications Medications: Current Medications Acetaminophen (Tylenol 325mg Tab) 650 mg PO Q4 PRN PRN Reason: Pain, Mild (1-3) Last Admin: 07/09/17 08:11 Dose: 650 mg Alprazolam (Xanax) 0.25 mg PO Q12 PRN PRN Reason: Anxiety Stop: 07/16/17 16:45 Last Admin: 07/09/17 17:09 Dose: 0.25 mg Epoetin Jhon (Procrit) 10,000 unit SC TTS [facility] Last Admin: 07/09/17 08:07 Dose: 10,000 unit Sodium Chloride (Sodium Chloride 0.9%) 1,000 mls @ 70 mls/hr IV .[id number] [facility] Stop: 07/12/17 14:04 Metoprolol Succinate (Toprol Xl) 12.5 mg PO DAILY [facility] Last Admin: 07/11/17 09:23 Dose: 12.5 mg Tamsulosin HCl (Flomax) 0.4 mg PO DAILY [facility] Last Admin: 07/11/17 09:23 Dose: 0.4 mg - Labs Labs: 07/11/17 04:30 07/11/17 04:30 PT 18.6 Seconds (9.8-13.1) H 07/05/17 12:20 INR 1.6 (0.9-1.2) H 07/05/17 12:20 APTT 35.6 Seconds (25.6-37.1) 07/02/17 04:25 - Constitutional Appears: Chronically Ill - Head Exam Head Exam: NORMAL INSPECTION - Eye Exam Eye Exam: PERRL - ENT Exam ENT Exam: Normal Exam - Neck Exam Neck Exam: Normal Inspection - Respiratory Exam Respiratory Exam: Decreased Breath Sounds (at bases) - Cardiovascular Exam Cardiovascular Exam: REGULAR RHYTHM - GI/Abdominal Exam GI & Abdominal Exam: Soft, Normal Bowel Sounds - Extremities Exam Extremities Exam: Tenderness (L shoulder , L hand) - Back Exam Back Exam: NORMAL INSPECTION - Neurological Exam Additional comments: confused , no focal motor/sensory deficit , generalized weakness. - Psychiatric Exam Psychiatric exam: Anxious - Skin Skin Exam: Warm Assessment and Plan (1) Metabolic encephalopathy Status: Acute (2) Hyponatremia Status: Acute (3) Anemia Status: Acute (4) Chest pain Status: Acute (5) History of CHF (congestive heart failure) Status: Chronic (6) Pain in left shoulder Status: Acute (7) History of permanent cardiac pacemaker placement Status: Chronic (8) History of BPH Status: Chronic - Assessment and Plan (Free Text) Plan: Hgb increased to 8.7 , cancel PRBC transfusion , Na 125 , BP low 98/61 , to have NS IV, Neyuro , Cardiac f/u appreciated , f/u CBC , CMP am
[2017-07-11] MEDS: Sodium Chloride 0.9% 1,000 ML IV SCH (14:36)
[2017-07-11] MEDS: EPOETIN ALFA 10,000 UNIT/ML ML SC SCH (14:38)
[2017-07-12] MEDS: Sodium Chloride 0.9% 1,000 ML IV SCH (04:30)
[2017-07-12 05:50] LABS: HEMATOCRIT 25.4 % (35.0-51.0); MEAN CORPUSCULAR HEMOGLOBIN 25.7 pg (27.0-31.0); MEAN CORPUSCULAR HGB CONC 31.8 g/dL (33.0-37.0); RED CELL DISTRIBUTION WIDTH 16.6 % (11.5-14.5); WHITE BLOOD COUNT 4.6 K/uL (4.8-10.8)
[2017-07-12 06:11] LABS: BLOOD UREA NITROGEN 10 mg/dl (9-20); CARBON DIOXIDE 22 mmol/L (22-30); CHLORIDE 98 mmol/L (98-107); GFR AFRICAN-AMERICAN > 60; GLUCOSE,RANDOM 93 mg/dL (75-110); POTASSIUM 4.1 MMOL/L (3.6-5.0); SODIUM 127 mmol/l (132-148)
[2017-07-12] MEDS: Metoprolol Succinate 25 mg XL Tab PO SCH ×2 (08:39→10:09)
[2017-07-12] MEDS ORDERED: Sodium Chloride 0.9% 1,000 ML IV SCH (09:00)
[2017-07-12] MEDS ORDERED: Sodium Chloride 3% 500 ML IV SCH (09:30)
--- NOTE | 2017-07-12 10:26 | CARD ---
APPROVED REPORT EKG Measurement Heart [id number] <Conclusion> Atrial Fibrillation Left bundle branch block Abnormal ECG
--- NOTE | 2017-07-12 15:06 | CP.PCM.PN ---
Subjective - Date & Time of Evaluation Date of Evaluation: 07/12/17 Time of Evaluation: 15:01 - Subjective Subjective: Covering fo Dr March Saw patient on rounds yesterday. Tried to speak to him via the resident who speaks brit[place] islander. He was extremely weak and very confused. . His hgb was 8.0 ms. But sodium was 127 which could be the cause of his mental state, Dr Mueller called in a consult with Demo Specialist. In the meanwhile I felt some of his weakness could be secondary to the qanemia. I had ordered a transfusion of 2 units of packed cells, but because his was having dialysis we were unable to reach her to get a consent. she signed it today and pt is receiving the blood today. Objective - Vital Signs/Intake and Output Vital Signs (last 24 hours): Temp Pulse Resp BP Pulse Ox 98.4 F 85 20 94/63 L 100 07/12/17 13:00 07/12/17 13:00 07/12/17 13:00 07/12/17 13:00 07/12/17 13:00 - Medications Medications: Current Medications Acetaminophen (Tylenol 325mg Tab) 650 mg PO Q4 PRN PRN Reason: Pain, Mild (1-3) Last Admin: 07/09/17 08:11 Dose: 650 mg Alprazolam (Xanax) 0.25 mg PO Q12 PRN PRN Reason: Anxiety Stop: 07/16/17 16:45 Last Admin: 07/12/17 12:40 Dose: 0.25 mg Epoetin Jhon (Procrit) 10,000 unit SC TTS [facility] Last Admin: 07/11/17 14:38 Dose: 10,000 unit Metoprolol Succinate (Toprol Xl) 25 mg PO DAILY [facility] Last Admin: 07/12/17 10:09 Dose: 25 mg Tamsulosin HCl (Flomax) 0.4 mg PO DAILY [facility] Last Admin: 07/12/17 08:39 Dose: 0.4 mg - Labs Labs: 07/12/17 05:40 07/12/17 05:40 PT 18.6 Seconds (9.8-13.1) H 07/05/17 12:20 INR 1.6 (0.9-1.2) H 07/05/17 12:20 APTT 35.6 Seconds (25.6-37.1) 07/02/17 04:25
--- NOTE | 2017-07-12 16:01 | PN ---
DATE: NEUROLOGICAL PROBLEM: Toxic versus metabolic encephalopathy. PHYSICAL EXAMINATION: VITAL SIGNS: Blood pressure 94/63, mean arterial pressure 73, respiratory rate 18, temperature 98.4, pulse rate 85. NEUROLOGIC: The patient is getting blood transfusion. He is awake, alert, oriented to person and place. Mild confusion noted. Otherwise, he is moving all 4 extremities. Examination is unchanged compared with my yesterday's exam. The patient is neurologically stable; however, no long tract sign is noted. Jamil Britton MD
--- NOTE | 2017-07-12 16:45 | CP.PCM.CON ---
History of Present Illness - History of Present Illness History of Present Illness: Initial Nephrology Consultation: Assessment: stable Hyponatremia euvolemia ? etiology unexlained anemia hx of HTN hx of BPH Plan monitor serum Na avoid correction in serum Na>6-8 meq/24 hour. oral fluid restriction to 1000 mL/day hypertonic saline not indicated at this time Monitor Input/Output, daily weights and renal function with basic metabolic panel Check urine/serum osmol, uric acid, urine Na, serum cortisol level Dose meds/antibiotics for normal GFR. Glycemic control Further work up/management as per primary team Thanks for allowing me to participate in care of your patient. Will follow patient with you. Please call if any Qs. d/w team and Dr Baptiste Paulina Office: [phone] Chief Complaint; chest pain Reason for consult: Hyponatremia HPI: Pt is a 76 y/o M with hx of HTN, BPH came with c/o chest pain and also found to have anemia. renal consult for hyponatremaiw. bedside stating that pt had imtermittent confusion epsiodes. Denies chest pain, palpitation, shortness of breath, leg swelling Denies OTC/herbal meds or NSAIDs pt said to feel okay ROS: Constitutional Symptoms: Denies fever. No chills. No Recent Weight Changes Eyes: denies change in vision, denies watery eyes, denies double vision Ears/Nose/Mouth/Throat: Denies Abnormal Taste. No Bad breath no Bad Taste. Cardiovascular: No chest pain now. There is no shortness of breath. No palpitations. Pulmonary: No shortness of breath no cough. Gastrointestinal: denies abdominal pain no nausea. no vomiting. Denies change in bowel habits. Denies Bleeding Genitourinary: no urinary complaints such as painful or burning urination Neurological: Denies headaches. No dizziness. no loss of balance. denies weakness, denies tingling/numbness Dermatological: No Rash or Bruising or ulcers. Psychiatric: Denies Anxiety. No depression. Denies hallucinations. Rheumatological: no joint pain . Denies Joint swelling Endocrine: c/o tiredness/Fatigue denies Heat/Cold Intolerance. All other negative Physical Examination: General Appearance: Comfortable, in no acute respiratory distress, co-operative . ill appearing Vitals reviewed and noted as below Head; Atraumatic, normocephalic ENT: no ulcers no thrush. Tongue is midline, appears dry. Oropharynx: no rash or ulcers. EYES: Pupils are equal, round and reactive to light accommodation. Eye muscles and extraocular movement intact. Sclera is icteric. Neck; supple no lymphadenopathy, no thyromegaly or bruit Lungs: Normal respiratory rate/effort. Breath sounds bilateral equal and clear Heart: Normal rate. s1s2 normal. No rub or gallop. Extremities: no edema. No varicose veins Neurological: Patient is alert, awake and confused. No focal deficit. Strength bilateral appropriate and equal Skin: Warm and dry. Normal turgor. No rash. Palpitation: Normal elasticity for age Abdomen: Abdomen is soft. Bowel sounds +. There is no abdominal tenderness, no guarding/rigidity no organomegaly Psych: lack insight and normal affect/mood MSK: left shoulder joint tenderness. Digits and nails normal, no deformity : kidney or bladder not palpable. Labs/imaging/EKG reviewed. Past medical history, past surgical history, family history, social history, allergy reviewed and noted as below Family hx: no hx of CKD. Rest non-contributory work up: SPEP neg Dorr/lambda normal TSH 1 TGL 74 Past Patient History - Past Medical History & Family History Past Medical History?: Yes - Past Social History Smoking Status: Former Smoker Alcohol: None Drugs: Denies Home Situation {Lives}: With Family - CARDIAC Hx Cardiac Disorders: Yes Hx Congestive Heart Failure: Yes Hx Pacemaker: Yes Other/Comment: Dyslipidemia. - PULMONARY Hx Respiratory Disorders: Yes Hx Chronic Obstructive Pulmonary Disease (COPD): Yes - NEUROLOGICAL Hx Neurological Disorder: No - HEENT Hx HEENT Problems: No - RENAL Hx Chronic Kidney Disease: No - ENDOCRINE/METABOLIC Hx Endocrine Disorders: No - HEMATOLOGICAL/ONCOLOGICAL Hx Blood Disorders: No - INTEGUMENTARY Hx Dermatological Problems: No - MUSCULOSKELETAL/RHEUMATOLOGICAL Hx Musculoskeletal Disorders: Yes Hx Back Pain: Yes Hx Falls: No Hx Osteoarthritis: Yes - GASTROINTESTINAL Hx Gastrointestinal Disorders: No - GENITOURINARY/GYNECOLOGICAL Hx Genitourinary Disorders: Yes Hx Prostate Problems: Yes - PSYCHIATRIC Hx Psychophysiologic Disorder: Yes Hx Anxiety: Yes Hx Substance Use: No - SURGICAL HISTORY Hx Surgeries: Yes Hx Herniorrhaphy: Yes Hx Tonsillectomy: Yes Other/Comment: PACEMAKER - ANESTHESIA Hx Anesthesia: Yes Hx Anesthesia Reactions: No Hx Malignant Hyperthermia: No Meds Home Medications: Home Medication List Medication Instructions Recorded Confirmed Type ALPRAZolam [Xanax] 0.25 mg PO Q12 PRN tab 07/10/17 Rx Acetaminophen [Tylenol 325mg tab] 650 mg PO Q4 PRN tab 07/10/17 Rx Epoetin Jhon [Procrit] 10,000 unit SC TTS ml 07/10/17 Rx Allergies/Adverse Reactions: Allergies Allergy/AdvReac Type Severity Reaction Status Date / Time No Known Allergies Allergy Verified 07/01/17 18:42 - Medications Medications: Current Medications Acetaminophen (Tylenol 325mg Tab) 650 mg PO Q4 PRN PRN Reason: Pain, Mild (1-3) Last Admin: 07/09/17 08:11 Dose: 650 mg Alprazolam (Xanax) 0.25 mg PO Q12 PRN PRN Reason: Anxiety Stop: 07/16/17 16:45 Last Admin: 07/12/17 12:40 Dose: 0.25 mg Epoetin Jhon (Procrit) 10,000 unit SC TTS [facility] Last Admin: 07/11/17 14:38 Dose: 10,000 unit Metoprolol Succinate (Toprol Xl) 25 mg PO DAILY [facility] Last Admin: 07/12/17 10:09 Dose: 25 mg Tamsulosin HCl (Flomax) 0.4 mg PO DAILY [facility] Last Admin: 07/12/17 08:39 Dose: 0.4 mg Results - Vital Signs Recent Vital Signs: Last Vital Signs Temp 97.5 F L 07/12/17 15:35 Pulse 90 07/12/17 15:35 Resp 18 07/12/17 15:35 BP 96/59 L 07/12/17 15:35 Pulse Ox 100 07/12/17 15:35 - Labs Result Diagrams: 07/12/17 05:40 07/12/17 05:40 Labs: Laboratory Results - last 24 hr 07/10/17 07/11/17 07/12/17 10:19 04:30 05:40 WBC 4.6 L RBC 3.14 L Hgb 8.1 L Hct 25.4 L MCV 81.0 MCH 25.7 L MCHC 31.8 L RDW 16.6 H Plt Count 290 Sodium Potassium Chloride Carbon Dioxide Anion Gap BUN Creatinine Est GFR ( Amer) Est GFR (Non-Af Amer) Random Glucose Serum Osmolality Uric Acid Calcium Magnesium 2.0 Blood Type O POSITIVE Antibody Screen Negative Crossmatch See Detail BBK History Checked Patient has bt 07/12/17 07/12/17 07/12/17 05:40 11:24 12:35 WBC RBC Hgb Hct MCV MCH MCHC RDW Plt Count Sodium 127 L Potassium 4.1 Chloride 98 Carbon Dioxide 22 Anion Gap 11 BUN 10 Creatinine 0.6 L Est GFR ( Amer) > 60 Est GFR (Non-Af Amer) > 60 Random Glucose 93 Serum Osmolality 259 L Uric Acid 2.8 L Calcium 8.0 L Magnesium Blood Type Antibody Screen Crossmatch BBK History Checked
--- NOTE | 2017-07-12 17:41 | CP.PCM.PN ---
Subjective - Date & Time of Evaluation Date of Evaluation: 07/12/17 Time of Evaluation: 15:30 - Subjective Subjective: F/U Metabolic Encephalopathy. Pt more alert today, less confused Objective - Vital Signs/Intake and Output Vital Signs (last 24 hours): Temp Pulse Resp BP Pulse Ox 97.5 F L 90 18 96/59 L 100 07/12/17 15:35 07/12/17 15:35 07/12/17 15:35 07/12/17 15:35 07/12/17 15:35 - Medications Medications: Current Medications Acetaminophen (Tylenol 325mg Tab) 650 mg PO Q4 PRN PRN Reason: Pain, Mild (1-3) Last Admin: 07/09/17 08:11 Dose: 650 mg Alprazolam (Xanax) 0.25 mg PO Q12 PRN PRN Reason: Anxiety Stop: 07/16/17 16:45 Last Admin: 07/12/17 12:40 Dose: 0.25 mg Epoetin Jhon (Procrit) 10,000 unit SC TTS [facility] Last Admin: 07/11/17 14:38 Dose: 10,000 unit Metoprolol Succinate (Toprol Xl) 25 mg PO DAILY [facility] Last Admin: 07/12/17 10:09 Dose: 25 mg Tamsulosin HCl (Flomax) 0.4 mg PO DAILY [facility] Last Admin: 07/12/17 08:39 Dose: 0.4 mg - Labs Labs: 07/12/17 05:40 07/12/17 05:40 PT 18.6 Seconds (9.8-13.1) H 07/05/17 12:20 INR 1.6 (0.9-1.2) H 07/05/17 12:20 APTT 35.6 Seconds (25.6-37.1) 07/02/17 04:25 - Constitutional Appears: No Acute Distress, Chronically Ill - Head Exam Head Exam: NORMAL INSPECTION - Eye Exam Eye Exam: PERRL - ENT Exam ENT Exam: Normal Exam - Neck Exam Neck Exam: Normal Inspection - Respiratory Exam Respiratory Exam: NORMAL BREATHING PATTERN - Cardiovascular Exam Cardiovascular Exam: REGULAR RHYTHM - GI/Abdominal Exam GI & Abdominal Exam: Soft, Normal Bowel Sounds - Extremities Exam Extremities Exam: Tenderness (L shoulder, minimal L hand.) - Back Exam Back Exam: NORMAL INSPECTION - Neurological Exam Neurological Exam: Awake Additional comments: more alert , answer questions , no focal motor sensory deficit, generalized weakness. - Psychiatric Exam Psychiatric exam: Anxious - Skin Skin Exam: Warm Assessment and Plan (1) Metabolic encephalopathy Status: Acute (2) Hyponatremia Assessment & Plan: SIADH Status: Acute (3) Anemia Status: Acute (4) Chest pain Status: Acute (5) History of CHF (congestive heart failure) Status: Chronic (6) Pain in left shoulder Status: Acute (7) History of permanent cardiac pacemaker placement Status: Chronic (8) History of BPH Status: Chronic - Assessment and Plan (Free Text) Plan: Hgb 8.1, PRBC transfusion , Continue Procrit, Na 127 on fluid restriction , continue Toprol and rest of Tx. ,
[2017-07-13 08:05] LABS: MEAN CELL VOLUME 81.4 fl (80.0-94.0); MEAN CORPUSCULAR HEMOGLOBIN 26.4 pg (27.0-31.0); MEAN CORPUSCULAR HGB CONC 32.5 g/dL (33.0-37.0); WHITE BLOOD COUNT 5.2 K/uL (4.8-10.8)
[2017-07-13 08:22] LABS: BLOOD UREA NITROGEN 8 mg/dl (9-20); CALCIUM 8.6 mg/dL (8.4-10.2); CARBON DIOXIDE 26 mmol/L (22-30); CHLORIDE 95 mmol/L (98-107); GFR AFRICAN-AMERICAN > 60; GLUCOSE,RANDOM 100 mg/dL (75-110); POTASSIUM 4.4 MMOL/L (3.6-5.0); SODIUM 128 mmol/l (132-148)
[2017-07-13] MEDS: Metoprolol Succinate 25 mg XL Tab PO SCH (09:17)
[2017-07-13] MEDS: EPOETIN ALFA 10,000 UNIT/ML ML SC SCH (09:20)
--- NOTE | 2017-07-13 10:12 | CP.PCM.PN ---
Subjective - Date & Time of Evaluation Date of Evaluation: 07/13/17 Time of Evaluation: 10:12 - Subjective Subjective: Patient seen examined bedside for hyponatremia chest pain and likely metabolic encephalopathy. Patient has no complaints at this time. Denies chest pain, SOB. VSS, NAD. Objective - Vital Signs/Intake and Output Vital Signs (last 24 hours): Temp Pulse Resp BP Pulse Ox 97.8 F 90 18 92/58 L 100 07/13/17 08:22 07/13/17 09:17 07/13/17 08:22 07/13/17 09:17 07/13/17 08:22 - Medications Medications: Current Medications Acetaminophen (Tylenol 325mg Tab) 650 mg PO Q4 PRN PRN Reason: Pain, Mild (1-3) Last Admin: 07/09/17 08:11 Dose: 650 mg Alprazolam (Xanax) 0.25 mg PO Q12 PRN PRN Reason: Anxiety Stop: 07/16/17 16:45 Last Admin: 07/12/17 12:40 Dose: 0.25 mg Epoetin Jhon (Procrit) 10,000 unit SC TTS [facility] Last Admin: 07/13/17 09:20 Dose: 10,000 unit Metoprolol Succinate (Toprol Xl) 25 mg PO DAILY [facility] Last Admin: 07/13/17 09:17 Dose: 25 mg Tamsulosin HCl (Flomax) 0.4 mg PO DAILY [facility] Last Admin: 07/13/17 09:17 Dose: 0.4 mg - Labs Labs: 07/13/17 06:30 07/13/17 06:30 PT 18.6 Seconds (9.8-13.1) H 07/05/17 12:20 INR 1.6 (0.9-1.2) H 07/05/17 12:20 APTT 35.6 Seconds (25.6-37.1) 07/02/17 04:25 - Constitutional Appears: Non-toxic, No Acute Distress - Head Exam Head Exam: ATRAUMATIC, NORMOCEPHALIC - Eye Exam Eye Exam: EOMI, Normal appearance, PERRL Pupil Exam: NORMAL ACCOMODATION - ENT Exam ENT Exam: Mucous Membranes Moist, Normal Oropharynx - Neck Exam Neck Exam: Normal Inspection - Respiratory Exam Respiratory Exam: Clear to Ausculation Bilateral, NORMAL BREATHING PATTERN - Cardiovascular Exam Cardiovascular Exam: RRR, +S1, +S2 - GI/Abdominal Exam GI & Abdominal Exam: Soft, Normal Bowel Sounds. absent: Mass - Extremities Exam Extremities Exam: Normal Capillary Refill, Normal Inspection - Back Exam Back Exam: NORMAL INSPECTION. absent: CVA tenderness (L), CVA tenderness (R) - Neurological Exam Neurological Exam: Alert, Awake - Psychiatric Exam Psychiatric exam: Normal Affect, Normal Mood - Skin Skin Exam: Dry, Normal Color, Warm Assessment and Plan - Assessment and Plan (Free Text) Plan: 76 year old male initially admitted for chest pain, had cardiac cath, developed altered mental status likely secondary to hyponatremia. Pt also being evaluated for anemia. Hyponatremia Metabolic Encephalopathy consult Dr. Gallardo appreciated and followed Na 128 today, mildly improving on fluid restriction Neuro Cx Dr. Britton appreciated Anemia Dr. Luis Miguel Prater on consult pt s/p 2 units PRBC
--- NOTE | 2017-07-13 17:25 | CP.PCM.PN ---
Subjective - Date & Time of Evaluation Date of Evaluation: 07/13/17 Time of Evaluation: 17:24 - Subjective Subjective: Nephrology Consultation: Assessment: stable Hyponatremia euvolemic and hypo-osmolar ? etiology ? SIADH unexlained anemia hx of HTN hx of BPH Plan monitor serum Na avoid correction in serum Na>6-8 meq/24 hour. oral fluid restriction to 1000 mL/day hypertonic saline not indicated at this time Monitor Input/Output, daily weights and renal function with basic metabolic panel Check urine osmol, urine Na, serum cortisol level Dose meds/antibiotics for normal GFR. Glycemic control Further work up/management as per primary team Thanks for allowing me to participate in care of your patient. Will follow patient with you. Please call if any Qs. d/w team and Dr Baptiste Paulina Office: [phone] Chief Complaint; chest pain Reason for consult: Hyponatremia HPI: Pt is a 76 y/o M with hx of HTN, BPH came with c/o chest pain and also found to have anemia. renal consult for hyponatremaiw. bedside stating that pt had imtermittent confusion epsiodes. Denies chest pain, palpitation, shortness of breath, leg swelling pt said to feel okay Physical Examination: General Appearance: Comfortable, in no acute respiratory distress, co-operative . ill appearing Vitals reviewed and noted as below Head; Atraumatic, normocephalic ENT: no ulcers no thrush. Tongue is midline, appears dry. Oropharynx: no rash or ulcers. EYES: Pupils are equal, round and reactive to light accommodation. Eye muscles and extraocular movement intact. Sclera is icteric. Neck; supple no lymphadenopathy, no thyromegaly or bruit Lungs: Normal respiratory rate/effort. Breath sounds bilateral equal and clear Heart: Normal rate. s1s2 normal. No rub or gallop. Extremities: no edema. No varicose veins Neurological: Patient is alert, awake No focal deficit. Strength bilateral appropriate and equal Skin: Warm and dry. Normal turgor. No rash. Palpitation: Normal elasticity for age Abdomen: Abdomen is soft. Bowel sounds +. There is no abdominal tenderness, no guarding/rigidity no organomegaly Psych: lack insight and normal affect/mood MSK: no joint tenderness. Digits and nails normal, no deformity : kidney or bladder not palpable. Labs/imaging/EKG reviewed. Past medical history, past surgical history, family history, social history, allergy reviewed and noted as below Family hx: no hx of CKD. Rest non-contributory work up: SPEP neg [place]/lambda normal TSH 1 TGL 74 Objective - Vital Signs/Intake and Output Vital Signs (last 24 hours): Temp Pulse Resp BP Pulse Ox 97.6 F 101 H 19 94/64 L 99 07/13/17 15:54 07/13/17 15:54 07/13/17 15:54 07/13/17 15:54 07/13/17 15:54 - Medications Medications: Current Medications Acetaminophen (Tylenol 325mg Tab) 650 mg PO Q4 PRN PRN Reason: Pain, Mild (1-3) Last Admin: 07/13/17 10:41 Dose: 650 mg Alprazolam (Xanax) 0.25 mg PO Q12 PRN PRN Reason: Anxiety Stop: 07/16/17 16:45 Last Admin: 07/12/17 12:40 Dose: 0.25 mg Epoetin Jhon (Procrit) 10,000 unit SC TTS [facility] Last Admin: 07/13/17 09:20 Dose: 10,000 unit Metoprolol Succinate (Toprol Xl) 25 mg PO DAILY [facility] Last Admin: 07/13/17 09:17 Dose: 25 mg Tamsulosin HCl (Flomax) 0.4 mg PO DAILY [facility] Last Admin: 07/13/17 09:17 Dose: 0.4 mg - Labs Labs: 07/13/17 06:30 07/13/17 06:30 PT 18.6 Seconds (9.8-13.1) H 07/05/17 12:20 INR 1.6 (0.9-1.2) H 07/05/17 12:20 APTT 35.6 Seconds (25.6-37.1) 07/02/17 04:25
--- NOTE | 2017-07-13 23:22 | EEG ---
CONDITION OF THE RECORDING: The record was obtained for a history of seizures. The record was ordered by Dr. Jamil Britton. The record was obtained while the patient was awake, drowsy and asleep. The record was symmetrically equal on both sides with velocity of 6 cycles per second. The waves were fairly formed, fairly organized with a posterior distribution. Moderate amplitude, reactive to opening by attenuation. The periods of wakefulness were very brief and most of the record was obtained while asleep and while drowsy. There were no abnormal discharges. No spike, no polyspike, no sharp wave, no focal slowing or paroxysmal discharge. There were periods of drowsiness during which attenuation and slowing of the record were seen and theta waves were seen. There were beta waves which were seen occasionally There were periods of sleep during which delta waves were seen. There were eye movement artifact, electrode artifact and muscle movement artifacts. The record did not show any changes with photic stimulation. Hyperventilation was omitted. In sum, this is a abnormal record EEG due to generalized slowing. This might be consistent with Encephalopathy or post ictal event. Clinical correlation is recommended. Lorne Menard MD [facility]
[2017-07-13 23:32] LABS: RBC URINE 3 /hpf (0-3); URINE BILIRUBIN NEGATIVE (NEGATIVE); URINE BLOOD SMALL (NEGATIVE); URINE COLOR YELLOW (YELLOW); URINE GLUCOSE (UA) NEG (Normal); URINE KETONE NEGATIVE (NEGATIVE); URINE LEUKOCYTE ESTERASE NEG Leu/uL (Negative); URINE PROTEIN NEGATIVE (NEGATIVE); WBC URINE 1 /hpf (0-5)
[2017-07-14 08:10] LABS: BASO % 0.9 % (0.0-2.0); EOS # 0.1 K/uL (0.0-0.7); EOS % 1.1 % (0.0-4.0); HEMATOCRIT 32.1 % (35.0-51.0); LYMPH # 1.8 K/uL (1.0-4.3); LYMPH % 38.4 % (20.0-40.0); MEAN CELL VOLUME 80.4 fl (80.0-94.0); MEAN CORPUSCULAR HEMOGLOBIN 26.6 pg (27.0-31.0); MEAN CORPUSCULAR HGB CONC 33.1 g/dL (33.0-37.0); MEAN PLATELET VOLUME 7.7 fl (7.2-11.7); MONO # 0.3 K/uL (0.0-0.8); MONO % 7.3 % (0.0-10.0); NEUT # 2.4 K/uL (1.8-7.0); NEUT % 52.3 % (50.0-75.0); NRBC % 0.1 % (0.0-0.0); RED CELL DISTRIBUTION WIDTH 15.7 % (11.5-14.5); WHITE BLOOD COUNT 4.6 K/uL (4.8-10.8)
[2017-07-14 08:11] LABS: BLOOD UREA NITROGEN 8 mg/dl (9-20); CALCIUM 8.3 mg/dL (8.4-10.2); CARBON DIOXIDE 27 mmol/L (22-30); CHLORIDE 94 mmol/L (98-107); GFR AFRICAN-AMERICAN > 60; GLUCOSE,RANDOM 88 mg/dL (75-110); POTASSIUM 4.2 MMOL/L (3.6-5.0); SODIUM 127 mmol/l (132-148)
[2017-07-14] MEDS: Metoprolol Succinate 25 mg XL Tab PO SCH (09:09)
[2017-07-14] MEDS: Tolvaptan 15 MG TAB PO SCH (10:13)
--- NOTE | 2017-07-14 11:28 | CP.PCM.PN ---
Subjective - Date & Time of Evaluation Date of Evaluation: 07/14/17 Time of Evaluation: :28 - Subjective Subjective: pt seen and examined bedside for hyponatremia and metabolic encephalopathy. feels confused but better. HD STABLE. NAD. patient denies chest pain, sob, calf tenderness. Objective - Vital Signs/Intake and Output Vital Signs (last 24 hours): Temp Pulse Resp BP Pulse Ox 98.3 F 101 H 18 101/60 100 07/14/17 08:00 07/14/17 09:09 07/14/17 08:00 07/14/17 09:09 07/14/17 08:00 Intake and Output: 07/14/17 07/14/17 06:59 18:59 Intake Total 800 Balance 800 Constitutional- cooperative, awake, alert.+ continues to have some confusion Head- NCAT, PERRL Eye- PERRL, normal accommodation ENT- normal exam, MMM. Neck- normal inspection, supple, no JVD Respiratory- CTAB, no wheezes rales rhonchi Cardiovascular- RRR, +S1, +S2 no MRG GI/Abdominal- normal bowel sounds, soft Skin- warm, dry Extremities Exam- normal capillary refill, normal inspection Neurological Exam- alert, oriented Psych- normal mood, normal affect - Medications Medications: Current Medications Acetaminophen (Tylenol 325mg Tab) 650 mg PO Q4 PRN PRN Reason: Pain, Mild (1-3) Last Admin: 07/13/17 10:41 Dose: 650 mg Alprazolam (Xanax) 0.25 mg PO Q12 PRN PRN Reason: Anxiety Stop: 07/16/17 16:45 Last Admin: 07/14/17 00:31 Dose: 0.25 mg Epoetin Jhon (Procrit) 10,000 unit SC TTS [facility] Last Admin: 07/13/17 09:20 Dose: 10,000 unit Metoprolol Succinate (Toprol Xl) 25 mg PO DAILY [facility] Last Admin: 07/14/17 09:09 Dose: 25 mg Tamsulosin HCl (Flomax) 0.4 mg PO DAILY [facility] Last Admin: 07/14/17 09:10 Dose: 0.4 mg Tolvaptan (Samsca) 15 mg PO DAILY [facility] Stop: 07/16/17 09:01 Last Admin: 07/14/17 10:13 Dose: 15 mg - Labs Labs: 07/14/17 06:30 07/14/17 06:30 PT 18.6 Seconds (9.8-13.1) H 07/05/17 12:20 INR 1.6 (0.9-1.2) H 07/05/17 12:20 APTT 35.6 Seconds (25.6-37.1) 07/02/17 04:25 Assessment and Plan - Assessment and Plan (Free Text) Plan: 76 year old male initially admitted for chest pain, had cardiac cath, developed altered mental status likely secondary to hyponatremia. Pt also being evaluated for anemia. Feels he may be improving. Hyponatremia Metabolic Encephalopathy consult Dr. Gallardo appreciated and followed Na 127 today on fluid restriction urine osm and Na pending Neuro Cx Dr. Britton appreciated Anemia Dr. Luis Miguel Prater on consult pt s/p 2 units PRBC
--- NOTE | 2017-07-14 14:10 | CP.PCM.PN ---
Subjective - Date & Time of Evaluation Date of Evaluation: 07/14/17 Time of Evaluation: 14:07 - Subjective Subjective: Pt is much more alert today. His wbc is 4.6, hgb 10.6 gms and the platelets 273K. His Na was down to 27 two dya ago,but today is 29 after he was seen by he camp cook. Objective - Vital Signs/Intake and Output Vital Signs (last 24 hours): Temp Pulse Resp BP Pulse Ox 97.7 F 116 H 20 111/72 100 07/14/17 12:00 07/14/17 12:00 07/14/17 12:00 07/14/17 12:00 07/14/17 12:00 Intake and Output: 07/14/17 07/14/17 06:59 18:59 Intake Total 800 Balance 800 - Medications Medications: Current Medications Acetaminophen (Tylenol 325mg Tab) 650 mg PO Q4 PRN PRN Reason: Pain, Mild (1-3) Last Admin: 07/13/17 10:41 Dose: 650 mg Alprazolam (Xanax) 0.25 mg PO Q12 PRN PRN Reason: Anxiety Stop: 07/16/17 16:45 Last Admin: 07/14/17 00:31 Dose: 0.25 mg Epoetin Jhon (Procrit) 10,000 unit SC TTS [facility] Last Admin: 07/13/17 09:20 Dose: 10,000 unit Metoprolol Succinate (Toprol Xl) 25 mg PO DAILY [facility] Last Admin: 07/14/17 09:09 Dose: 25 mg Tamsulosin HCl (Flomax) 0.4 mg PO DAILY [facility] Last Admin: 07/14/17 09:10 Dose: 0.4 mg Tolvaptan (Samsca) 15 mg PO DAILY [facility] Stop: 07/16/17 09:01 Last Admin: 07/14/17 10:13 Dose: 15 mg - Labs Labs: 07/14/17 06:30 07/14/17 13:30 PT 18.6 Seconds (9.8-13.1) H 07/05/17 12:20 INR 1.6 (0.9-1.2) H 07/05/17 12:20 APTT 35.6 Seconds (25.6-37.1) 07/02/17 04:25 Assessment and Plan - Assessment and Plan (Free Text) Plan: Plan; Will monitor cbc
--- NOTE | 2017-07-14 16:17 | CP.PCM.PN ---
Subjective - Date & Time of Evaluation Date of Evaluation: 07/14/17 Time of Evaluation: 16:14 - Subjective Subjective: Nephrology Consultation: Assessment: stable Hyponatremia euvolemic and hypo-osmolar with high urine Na and high urine Osmol strongly favors SIADH unexlained anemia hx of HTN hx of BPH Plan monitor serum Na avoid correction in serum Na>6-8 meq/24 hour. will start Tolvaptan 15 mg/day. no fluid restriction while on it hypertonic saline not indicated at this time pending serum cortisol level Dose meds/antibiotics for normal GFR. Glycemic control Further work up/management as per primary team since SIADH is likely cause of his hyponatremia, pt needs work up for occult malignancy. Thanks for allowing me to participate in care of your patient. Will follow patient with you. Please call if any Qs. d/w Dr Emile Gallardo Office: [phone] Chief Complaint; chest pain Reason for consult: Hyponatremia HPI: Pt is a 76 y/o M with hx of HTN, BPH came with c/o chest pain and also found to have anemia. renal consult for hyponatremaiw. bedside stating that pt had imtermittent confusion epsiodes. Denies chest pain, palpitation, shortness of breath, leg swelling pt said to feel okay Physical Examination: General Appearance: Comfortable, in no acute respiratory distress, co-operative . ill appearing Vitals reviewed and noted as below Head; Atraumatic, normocephalic ENT: no ulcers no thrush. Tongue is midline, appears dry. Oropharynx: no rash or ulcers. EYES: Pupils are equal, round and reactive to light accommodation. Eye muscles and extraocular movement intact. Sclera is icteric. Neck; supple no lymphadenopathy, no thyromegaly or bruit Lungs: Normal respiratory rate/effort. Breath sounds bilateral equal and clear Heart: Normal rate. s1s2 normal. No rub or gallop. Extremities: no edema. No varicose veins Neurological: Patient is alert, awake and confused No focal deficit. Strength bilateral appropriate and equal Skin: Warm and dry. Normal turgor. No rash. Palpitation: Normal elasticity for age Abdomen: Abdomen is soft. Bowel sounds +. There is no abdominal tenderness, no guarding/rigidity no organomegaly Psych: lack insight and normal affect/mood MSK: no joint tenderness. Digits and nails normal, no deformity : kidney or bladder not palpable. Labs/imaging/EKG reviewed. Past medical history, past surgical history, family history, social history, allergy reviewed and noted as below Family hx: no hx of CKD. Rest non-contributory work up: SPEP neg [place]/lambda normal TSH 1 TGL 74 Objective - Vital Signs/Intake and Output Vital Signs (last 24 hours): Temp Pulse Resp BP Pulse Ox 98.0 F 114 H 17 100/63 97 07/14/17 16:00 07/14/17 16:00 07/14/17 16:00 07/14/17 16:00 07/14/17 16:00 Intake and Output: 07/14/17 07/14/17 06:59 18:59 Intake Total 800 Balance 800 - Medications Medications: Current Medications Acetaminophen (Tylenol 325mg Tab) 650 mg PO Q4 PRN PRN Reason: Pain, Mild (1-3) Last Admin: 07/13/17 10:41 Dose: 650 mg Alprazolam (Xanax) 0.25 mg PO Q12 PRN PRN Reason: Anxiety Stop: 07/16/17 16:45 Last Admin: 07/14/17 00:31 Dose: 0.25 mg Epoetin Jhon (Procrit) 10,000 unit SC TTS [facility] Last Admin: 07/13/17 09:20 Dose: 10,000 unit Metoprolol Succinate (Toprol Xl) 25 mg PO DAILY [facility] Last Admin: 07/14/17 09:09 Dose: 25 mg Tamsulosin HCl (Flomax) 0.4 mg PO DAILY [facility] Last Admin: 07/14/17 09:10 Dose: 0.4 mg Tolvaptan (Samsca) 15 mg PO DAILY [facility] Stop: 07/16/17 09:01 Last Admin: 07/14/17 10:13 Dose: 15 mg - Labs Labs: 07/14/17 06:30 07/14/17 13:30 PT 18.6 Seconds (9.8-13.1) H 07/05/17 12:20 INR 1.6 (0.9-1.2) H 07/05/17 12:20 APTT 35.6 Seconds (25.6-37.1) 07/02/17 04:25
[2017-07-15 06:10] LABS: BLOOD UREA NITROGEN 7 mg/dl (9-20); CALCIUM 9.4 mg/dL (8.4-10.2); CARBON DIOXIDE 29 mmol/L (22-30); CHLORIDE 100 mmol/L (98-107); GFR AFRICAN-AMERICAN > 60; GLUCOSE,RANDOM 109 mg/dL (75-110); POTASSIUM 5.4 MMOL/L (3.6-5.0); SODIUM 136 mmol/l (132-148)
[2017-07-15] MEDS: Metoprolol Succinate 25 mg XL Tab PO SCH (09:03)
[2017-07-15] MEDS: Tolvaptan 15 MG TAB PO SCH (09:04)
--- NOTE | 2017-07-15 09:47 | CP.PCM.PN ---
Subjective - Date & Time of Evaluation Date of Evaluation: 07/15/17 Time of Evaluation: 09:45 - Subjective Subjective: Patient is sitting and eating his breakfast. Patient is awake appears to be comfortable Patient appeared to be cachectic Objective - Vital Signs/Intake and Output Vital Signs (last 24 hours): Temp Pulse Resp BP Pulse Ox 98.2 F 118 H 20 107/71 97 07/15/17 08:00 07/15/17 09:03 07/15/17 08:00 07/15/17 09:03 07/15/17 08:00 Intake and Output: 07/15/17 07/15/17 06:59 18:59 Intake Total 500 Output Total 1200 Balance -700 - Medications Medications: Current Medications Acetaminophen (Tylenol 325mg Tab) 650 mg PO Q4 PRN PRN Reason: Pain, Mild (1-3) Last Admin: 07/13/17 10:41 Dose: 650 mg Alprazolam (Xanax) 0.25 mg PO Q12 PRN PRN Reason: Anxiety Stop: 07/16/17 16:45 Last Admin: 07/14/17 00:31 Dose: 0.25 mg Epoetin Jhon (Procrit) 10,000 unit SC TTS [facility] Last Admin: 07/13/17 09:20 Dose: 10,000 unit Metoprolol Succinate (Toprol Xl) 25 mg PO DAILY [facility] Last Admin: 07/15/17 09:03 Dose: 25 mg Tamsulosin HCl (Flomax) 0.4 mg PO DAILY [facility] Last Admin: 07/15/17 09:03 Dose: 0.4 mg Tolvaptan (Samsca) 15 mg PO DAILY [facility] Stop: 07/16/17 09:01 Last Admin: 07/15/17 09:04 Dose: 15 mg - Labs Labs: 07/14/17 06:30 07/15/17 04:30 PT 18.6 Seconds (9.8-13.1) H 07/05/17 12:20 INR 1.6 (0.9-1.2) H 07/05/17 12:20 APTT 35.6 Seconds (25.6-37.1) 07/02/17 04:25 - Eye Exam Eye Exam: Conjunctival injection - ENT Exam ENT Exam: Mucous Membranes Moist - Neck Exam Neck Exam: absent: Lymphadenopathy - Respiratory Exam Respiratory Exam: NORMAL BREATHING PATTERN. absent: Chest Wall Tenderness, Rales - Cardiovascular Exam Cardiovascular Exam: absent: JVD, Rubs - GI/Abdominal Exam GI & Abdominal Exam: Soft, Normal Bowel Sounds - Extremities Exam Extremities Exam: absent: Calf Tenderness - Back Exam Back Exam: absent: CVA tenderness (L), CVA tenderness (R) - Neurological Exam Neurological Exam: Alert Assessment and Plan (1) Anemia Status: Acute (2) Elevated serum globulin level Status: Acute (3) Hyponatremia Assessment & Plan: Hyponatremia. 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 Serum potassium elevated 5.4 etiology not clear at this point we will give Kayexalate. And continue monitoring may need more Tolvaptan tomorrow perhaps. Status: Acute
[2017-07-15] MEDS ORDERED: Sod Polystyrene Sulf 15 gm/60 ml Susp PO ONE (09:54)
--- NOTE | 2017-07-15 14:41 | CP.PCM.PN ---
Subjective - Date & Time of Evaluation Date of Evaluation: 07/15/17 Time of Evaluation: 11:00 - Subjective Subjective: F/U Anemia / Chest Pain. Pt awake, alert, oriented, no CP, Hgb 10.6 Objective - Vital Signs/Intake and Output Vital Signs (last 24 hours): Temp Pulse Resp BP Pulse Ox 98.2 F 107 H 20 107/71 97 07/15/17 08:00 07/15/17 13:11 07/15/17 08:00 07/15/17 09:03 07/15/17 08:00 Intake and Output: 07/15/17 07/15/17 06:59 18:59 Intake Total 500 Output Total 1200 Balance -700 - Medications Medications: Current Medications Acetaminophen (Tylenol 325mg Tab) 650 mg PO Q4 PRN PRN Reason: Pain, Mild (1-3) Last Admin: 07/13/17 10:41 Dose: 650 mg Alprazolam (Xanax) 0.25 mg PO Q12 PRN PRN Reason: Anxiety Stop: 07/16/17 16:45 Last Admin: 07/14/17 00:31 Dose: 0.25 mg Epoetin Jhon (Procrit) 10,000 unit SC TTS [facility] Last Admin: 07/13/17 09:20 Dose: 10,000 unit Metoprolol Succinate (Toprol Xl) 25 mg PO DAILY [facility] Last Admin: 07/15/17 09:03 Dose: 25 mg Tamsulosin HCl (Flomax) 0.4 mg PO DAILY [facility] Last Admin: 07/15/17 09:03 Dose: 0.4 mg - Labs Labs: 07/14/17 06:30 07/15/17 14:00 PT 18.6 Seconds (9.8-13.1) H 07/05/17 12:20 INR 1.6 (0.9-1.2) H 07/05/17 12:20 APTT 35.6 Seconds (25.6-37.1) 07/02/17 04:25 - Constitutional Appears: No Acute Distress - Head Exam Head Exam: NORMAL INSPECTION - Eye Exam Eye Exam: PERRL - ENT Exam ENT Exam: Normal Exam - Neck Exam Neck Exam: Normal Inspection - Respiratory Exam Respiratory Exam: NORMAL BREATHING PATTERN - Cardiovascular Exam Cardiovascular Exam: REGULAR RHYTHM - GI/Abdominal Exam GI & Abdominal Exam: Soft, Normal Bowel Sounds - Extremities Exam Extremities Exam: Tenderness (minimal L shoulder) - Back Exam Back Exam: NORMAL INSPECTION - Neurological Exam Neurological Exam: Alert Additional comments: Oriented x 3 , no focal motor sensory deficit, generalized weakness. - Psychiatric Exam Psychiatric exam: Anxious - Skin Skin Exam: Warm Assessment and Plan (1) Metabolic encephalopathy Status: Acute (2) Hyponatremia Assessment & Plan: SIADH Status: Acute (3) Anemia Status: Acute (4) Chest pain Status: Acute (5) History of CHF (congestive heart failure) Status: Chronic (6) Pain in left shoulder Status: Acute (7) History of permanent cardiac pacemaker placement Status: Chronic (8) History of BPH Status: Chronic - Assessment and Plan (Free Text) Plan: Pt on Samsca fot treatment of SIADH , Na increased to 134, K 5.6 , Kayexalate , Renal f/u appreciated , evaluation for TCU.
[2017-07-16 05:50] LABS: BLOOD UREA NITROGEN 6 mg/dl (9-20); CALCIUM 9.4 mg/dL (8.4-10.2); CARBON DIOXIDE 26 mmol/L (22-30); CHLORIDE 102 mmol/L (98-107); GFR AFRICAN-AMERICAN > 60; GLUCOSE,RANDOM 111 mg/dL (75-110); SODIUM 139 mmol/l (132-148)
[2017-07-16 08:54] VITALS: O2SAT 95
[2017-07-16] MEDS: Metoprolol Succinate 25 mg XL Tab PO SCH (09:15)
[2017-07-16] MEDS: EPOETIN ALFA 10,000 UNIT/ML ML SC SCH (09:17)
--- NOTE | 2017-07-16 09:49 | CP.PCM.PN ---
Subjective - Date & Time of Evaluation Date of Evaluation: 07/16/17 Time of Evaluation: 09:46 - Subjective Subjective: Patient is out of bed sitting in the chair Feeling much better appetite is good. Objective - Vital Signs/Intake and Output Vital Signs (last 24 hours): Temp Pulse Resp BP Pulse Ox 97.9 F 100 H 20 100/68 95 07/16/17 08:00 07/16/17 09:15 07/16/17 08:00 07/16/17 09:15 07/16/17 08:00 - Medications Medications: Current Medications Acetaminophen (Tylenol 325mg Tab) 650 mg PO Q4 PRN PRN Reason: Pain, Mild (1-3) Last Admin: 07/13/17 10:41 Dose: 650 mg Alprazolam (Xanax) 0.25 mg PO Q12 PRN PRN Reason: Anxiety Stop: 07/16/17 16:45 Last Admin: 07/14/17 00:31 Dose: 0.25 mg Epoetin Jhon (Procrit) 10,000 unit SC TTS [facility] Last Admin: 07/16/17 09:17 Dose: 10,000 unit Metoprolol Succinate (Toprol Xl) 25 mg PO DAILY [facility] Last Admin: 07/16/17 09:15 Dose: 25 mg Tamsulosin HCl (Flomax) 0.4 mg PO DAILY [facility] Last Admin: 07/16/17 09:16 Dose: 0.4 mg - Labs Labs: 07/14/17 06:30 07/16/17 04:35 PT 18.6 Seconds (9.8-13.1) H 07/05/17 12:20 INR 1.6 (0.9-1.2) H 07/05/17 12:20 APTT 35.6 Seconds (25.6-37.1) 07/02/17 04:25 - Constitutional Appears: No Acute Distress - ENT Exam ENT Exam: Mucous Membranes Moist - Respiratory Exam Respiratory Exam: NORMAL BREATHING PATTERN. absent: Chest Wall Tenderness - Cardiovascular Exam Cardiovascular Exam: absent: Diastolic murmur, Rubs - GI/Abdominal Exam GI & Abdominal Exam: Normal Bowel Sounds - Extremities Exam Extremities Exam: absent: Calf Tenderness - Back Exam Back Exam: absent: CVA tenderness (L), CVA tenderness (R) - Neurological Exam Neurological Exam: Alert - Psychiatric Exam Psychiatric exam: Normal Affect - Skin Skin Exam: absent: Cyanosis Assessment and Plan (1) Anemia Status: Acute (2) Elevated serum globulin level Status: Acute (3) Hyponatremia Assessment & Plan: Hyponatremia, corrected the last serum sodium 139 which consistent with SIADH. Going forward we will give fluid restriction since he is not taken Tolvaptan. Potassium corrected Kidney function stable Serum cortisol level and TSH pending Status: Acute
--- NOTE | 2017-07-16 11:07 | CP.PCM.PN ---
Subjective - Date & Time of Evaluation Date of Evaluation: 07/16/17 Time of Evaluation: 10:00 - Subjective Subjective: No complaints, notes not eating well. Objective - Vital Signs/Intake and Output Vital Signs (last 24 hours): Temp Pulse Resp BP Pulse Ox 97.9 F 100 H 20 100/68 95 07/16/17 08:00 07/16/17 09:15 07/16/17 08:00 07/16/17 09:15 07/16/17 08:00 - Medications Medications: Current Medications Acetaminophen (Tylenol 325mg Tab) 650 mg PO Q4 PRN PRN Reason: Pain, Mild (1-3) Last Admin: 07/13/17 10:41 Dose: 650 mg Alprazolam (Xanax) 0.25 mg PO Q12 PRN PRN Reason: Anxiety Stop: 07/16/17 16:45 Last Admin: 07/14/17 00:31 Dose: 0.25 mg Epoetin Jhon (Procrit) 10,000 unit SC TTS [facility] Last Admin: 07/16/17 09:17 Dose: 10,000 unit Metoprolol Succinate (Toprol Xl) 25 mg PO DAILY [facility] Last Admin: 07/16/17 09:15 Dose: 25 mg Tamsulosin HCl (Flomax) 0.4 mg PO DAILY [facility] Last Admin: 07/16/17 09:16 Dose: 0.4 mg - Labs Labs: 07/14/17 06:30 07/16/17 04:35 PT 18.6 Seconds (9.8-13.1) H 07/05/17 12:20 INR 1.6 (0.9-1.2) H 07/05/17 12:20 APTT 35.6 Seconds (25.6-37.1) 07/02/17 04:25 - Head Exam Head Exam: ATRAUMATIC - Eye Exam Eye Exam: Normal appearance - ENT Exam ENT Exam: Mucous Membranes Dry - Respiratory Exam Respiratory Exam: NORMAL BREATHING PATTERN - Cardiovascular Exam Cardiovascular Exam: +S1, +S2 - GI/Abdominal Exam GI & Abdominal Exam: Normal Bowel Sounds Assessment and Plan (1) Anemia Assessment & Plan: anemia of chronic disease no iron, b12, folate deficiency monoclonal protein w/u negative on Procrit s/p PRBC transfusion discussed with pt may need bone marrow evaluation if H/H cont. to decline Status: Acute (2) Elevated serum globulin level Assessment & Plan: monoclonal protein w/u negative Status: Acute (3) Coagulopathy Assessment & Plan: mixing study sent Status: Acute
--- NOTE | 2017-07-16 13:15 | CP.PCM.PN ---
Subjective - Date & Time of Evaluation Date of Evaluation: 07/15/17 Time of Evaluation: 16:30 - Subjective Subjective: no overnight events Objective - Vital Signs/Intake and Output Vital Signs (last 24 hours): Temp Pulse Resp BP Pulse Ox 97.9 F 100 H 20 100/68 95 07/16/17 08:00 07/16/17 09:15 07/16/17 08:00 07/16/17 09:15 07/16/17 08:00 - Medications Medications: Current Medications Acetaminophen (Tylenol 325mg Tab) 650 mg PO Q4 PRN PRN Reason: Pain, Mild (1-3) Last Admin: 07/13/17 10:41 Dose: 650 mg Alprazolam (Xanax) 0.25 mg PO Q12 PRN PRN Reason: Anxiety Stop: 07/16/17 16:45 Last Admin: 07/14/17 00:31 Dose: 0.25 mg Epoetin Jhon (Procrit) 10,000 unit SC TTS [facility] Last Admin: 07/16/17 09:17 Dose: 10,000 unit Metoprolol Succinate (Toprol Xl) 25 mg PO DAILY [facility] Last Admin: 07/16/17 09:15 Dose: 25 mg Tamsulosin HCl (Flomax) 0.4 mg PO DAILY [facility] Last Admin: 07/16/17 09:16 Dose: 0.4 mg - Labs Labs: 07/14/17 06:30 07/16/17 04:35 PT 18.6 Seconds (9.8-13.1) H 07/05/17 12:20 INR 1.6 (0.9-1.2) H 07/05/17 12:20 APTT 35.6 Seconds (25.6-37.1) 07/02/17 04:25 - Neck Exam Neck Exam: Normal Inspection - Respiratory Exam Respiratory Exam: NORMAL BREATHING PATTERN - Cardiovascular Exam Cardiovascular Exam: REGULAR RHYTHM - GI/Abdominal Exam GI & Abdominal Exam: Soft, Normal Bowel Sounds Assessment and Plan - Assessment and Plan (Free Text) Assessment: 76 yo male with chronic anemia no bleeding outpatient endoscopic work up
[2017-07-16 16:08] VITALS: BP 100/69; PULSE 100; RESP 18; TEMP 98.3
--- NOTE | 2017-07-16 17:13 | CP.PCM.PN ---
Subjective - Date & Time of Evaluation Date of Evaluation: 07/16/17 Time of Evaluation: 11:00 - Subjective Subjective: F/U Anemia, Chest Pain. Pt with no A/D, alert, oriented, able to ambulate with PT in the gerardo with a cane, no other c/o. Objective - Vital Signs/Intake and Output Vital Signs (last 24 hours): Temp Pulse Resp BP Pulse Ox 98.3 F 100 H 18 100/69 95 07/16/17 16:07 07/16/17 16:07 07/16/17 16:07 07/16/17 16:07 07/16/17 13:00 - Medications Medications: Current Medications Acetaminophen (Tylenol 325mg Tab) 650 mg PO Q4 PRN PRN Reason: Pain, Mild (1-3) Last Admin: 07/13/17 10:41 Dose: 650 mg Epoetin Jhon (Procrit) 10,000 unit SC TTS [facility] Last Admin: 07/16/17 09:17 Dose: 10,000 unit Metoprolol Succinate (Toprol Xl) 25 mg PO DAILY [facility] Last Admin: 07/16/17 09:15 Dose: 25 mg Tamsulosin HCl (Flomax) 0.4 mg PO DAILY [facility] Last Admin: 07/16/17 09:16 Dose: 0.4 mg - Labs Labs: 07/14/17 06:30 07/16/17 04:35 PT 18.6 Seconds (9.8-13.1) H 07/05/17 12:20 INR 1.6 (0.9-1.2) H 07/05/17 12:20 APTT 35.6 Seconds (25.6-37.1) 07/02/17 04:25 - Constitutional Appears: No Acute Distress - Head Exam Head Exam: NORMAL INSPECTION - Eye Exam Eye Exam: PERRL - ENT Exam ENT Exam: Normal Exam - Neck Exam Neck Exam: Normal Inspection - Respiratory Exam Respiratory Exam: NORMAL BREATHING PATTERN - Cardiovascular Exam Cardiovascular Exam: REGULAR RHYTHM - GI/Abdominal Exam GI & Abdominal Exam: Soft, Normal Bowel Sounds - Extremities Exam Extremities Exam: Tenderness (minimal L shoulder.) - Back Exam Back Exam: NORMAL INSPECTION - Neurological Exam Neurological Exam: Alert, Oriented x3 Additional comments: No focal motor sensory deficit, generalized weakness. - Psychiatric Exam Psychiatric exam: Anxious - Skin Skin Exam: Warm Assessment and Plan (1) Metabolic encephalopathy Status: Acute (2) Hyponatremia Status: Acute (3) Anemia Status: Acute (4) Chest pain Status: Acute (5) History of CHF (congestive heart failure) Status: Chronic (6) Pain in left shoulder Status: Acute (7) History of permanent cardiac pacemaker placement Status: Chronic (8) History of BPH Status: Chronic - Assessment and Plan (Free Text) Plan: Sodium 139, Pt improved and stable to be transferred to TCU.
--- NOTE | 2017-07-18 10:01 | PQF GENQUE ---
Dr. Mueller pt was admitted with chest pain and anemia and had cardiac cath on . After study what is the principal diagnosis for this case? This form is a permanent part of the medical record Clarification of your documentation is requested to better reflect the severity of illness and intensity of treatment of your patient. Indicators present [] Specify: [] [] Specify: [] [] Specify: [] [] Specify: [] Location in the medical record that reflects the above clinical findings: [] Treatment Provided: [] PHYSICIAN'S RESPONSE Based on your medical judgment of the clinical indicators outlined above please clarify the following: [] Practitioner response [] If unable to determine, please check the box, sign and date. Present On Admission (POA) Indicator: [] Present at the time of admission [] Not present at the time of admission [] Clinically Undetermined In responding to this query, please exercise your independent professional judgment. The fact that a question is asked does not imply that any particular answer is desired or expected. Thank you for your clarification on this documentation. If you have any questions please call:[ ] * Thank you, [ ]Kezia Mcneil milk handler CLARENCE
== END 2017-07-16 17:45 | DRG 286 ==
LOC: H.ER 18:35 → H.EROBSV 20:32 → H.ERHOLD 20:58 → H.TEL 22:40 → OBSVTOIN 07-02 16:04 → H.TEL 07-05 09:51
PROVIDERS: ADMIT Internal Medicine Pulmonary Disease; ATTEND Internal Medicine Pulmonary Disease
PROC: 4A023N7 Measurement of Cardiac Sampling and Pressure, Left Heart, Percutaneous Approach (ICD-10-PCS; principal; 2017-07-04)
PROC: B206YZZ Plain Radiography of Right and Left Heart using Other Contrast (ICD-10-PCS; 2017-07-04)
DX: I25.110 Atherosclerotic heart disease of native coronary artery with unstable angina pectoris (principal); G93.41 Metabolic encephalopathy; I95.9 Hypotension, unspecified; D68.9 Coagulation defect, unspecified; I11.0 Hypertensive heart disease with heart failure; G62.9 Polyneuropathy, unspecified; E22.2 Syndrome of inappropriate secretion of antidiuretic hormone; I50.32 Chronic diastolic (congestive) heart failure; D47.2 Monoclonal gammopathy; D63.8 Anemia in other chronic diseases classified elsewhere; Z95.0 Presence of cardiac pacemaker; Z87.891 Personal history of nicotine dependence; M25.512 Pain in left shoulder; N40.0 Benign prostatic hyperplasia without lower urinary tract symptoms; R77.1 Abnormality of globulin; D72.819 Decreased white blood cell count, unspecified; J44.9 Chronic obstructive pulmonary disease, unspecified

== ENCOUNTER 2017-07-16 14:13 | Inpatient (IN) | payer MEDICARE ==
[2017-07-16 19:05] VITALS: BMI 29.2
[2017-07-17] MEDS: Metoprolol Succinate 25 mg XL Tab PO SCH (08:51)
--- NOTE | 2017-07-17 15:47 | CP.PCM.CON ---
History of Present Illness - History of Present Illness History of Present Illness: Orthopedic consultation Dr. Marin 76M complains of left shoulder pain for approximately 2 months. He says it started from nothing, and denies any heavy lifting or falls. RHD. He also complains of left hand pain since admission. He denies any trauma to hand. He denies any neck pain, denies numbness/tingling. Denies any pain in shoulder priior to 2months ago. No prior injection, he believes he has had PT in the past for shoulder. Review of Systems - Review of Systems All systems: reviewed and no additional remarkable complaints except - Musculoskeletal Musculoskeletal: As Per HPI - Integumentary Integumentary: Swelling - Neurological Neurological: As Per HPI - Hematologic/Lymphatic Hematologic: absent: As Per HPI, Easy Bleeding, Easy Bruising, Lymphadenopathy, Other Past Patient History - Past Medical History & Family History Past Medical History?: Yes Past Family History: Reviewed and not pertinent - Past Social History Smoking Status: Former Smoker - CARDIAC Hx Cardiac Disorders: Yes Hx Congestive Heart Failure: Yes Hx Pacemaker: Yes Other/Comment: Dyslipidemia. - PULMONARY Hx Respiratory Disorders: Yes Hx Chronic Obstructive Pulmonary Disease (COPD): Yes - NEUROLOGICAL Hx Neurological Disorder: No - HEENT Hx HEENT Problems: No - RENAL Hx Chronic Kidney Disease: No - ENDOCRINE/METABOLIC Hx Endocrine Disorders: No - HEMATOLOGICAL/ONCOLOGICAL Hx Blood Disorders: No - INTEGUMENTARY Hx Dermatological Problems: No - MUSCULOSKELETAL/RHEUMATOLOGICAL Hx Musculoskeletal Disorders: Yes Hx Back Pain: Yes Hx Falls: Yes Hx Osteoarthritis: Yes - GASTROINTESTINAL Hx Gastrointestinal Disorders: No - GENITOURINARY/GYNECOLOGICAL Hx Genitourinary Disorders: Yes Hx Prostate Problems: Yes - PSYCHIATRIC Hx Psychophysiologic Disorder: No Hx Anxiety: Yes - SURGICAL HISTORY Hx Surgeries: Yes Hx Herniorrhaphy: Yes Hx Tonsillectomy: Yes Other/Comment: PACEMAKER - ANESTHESIA Hx Anesthesia: Yes Hx Anesthesia Reactions: No Hx Malignant Hyperthermia: No Has any member of the family had a problem w/ anesthesia?: No Meds Allergies/Adverse Reactions: Allergies Allergy/AdvReac Type Severity Reaction Status Date / Time No Known Allergies Allergy Verified 07/01/17 18:42 - Medications Medications: Current Medications Acetaminophen (Tylenol 325mg Tab) 650 mg PO Q4 PRN PRN Reason: Pain, Mild (1-3) Alprazolam (Xanax) 0.25 mg PO Q12 PRN PRN Reason: Anxiety Stop: 07/23/17 19:09 Epoetin Jhon (Procrit) 10,000 unit SC TTS [facility] Metoprolol Succinate (Toprol Xl) 25 mg PO DAILY [facility] Last Admin: 07/17/17 08:51 Dose: 25 mg Tamsulosin HCl (Flomax) 0.4 mg PO DAILY [facility] Last Admin: 07/17/17 08:51 Dose: 0.4 mg Physical Exam - Constitutional Appears: Well, No Acute Distress - Head Exam Head Exam: ATRAUMATIC - Neck Exam Neck exam: Positive for: Full Rom, Normal Inspection Additional comments: non tender - Expanded Upper Extremities Exam Left Shoulder exam: tenderness (ROM actively 0-40 degrees flexion and abduction. passively to 90 in both planes. TTP anterior shoulder and AC joint. Non tender to upper trap/scapula. No swelling/discoloration. ), tenderness over AC joint, normal inspection Elbow exam: full ROM, normal inspection Forearm Wrist exam: full ROM, swelling (to 2nd MCP joint, tender to same, no erythema, mild swelling, full ROM with minimal pain, skin intact) Neuro motor exam: finger 2-5 abduction intact, thumb abduction, thumb IP flexion intact, thumb opposition intact, wrist extension intact Neurosensory exam: median nerve intact, radial nerve intact, ulnar nerve intact Vascular exam: radial pulse - Neurological Exam Neurological exam: Alert, Oriented x3 - Psychiatric Exam Psychiatric exam: Normal Affect, Normal Mood - Skin Skin Exam: Dry, Intact, Normal Color, Warm Results - Vital Signs Recent Vital Signs: Last Vital Signs Temp 98.2 F 07/17/17 10:29 Pulse 103 H 07/17/17 10:47 Resp 20 07/17/17 10:29 BP 107/56 L 07/17/17 10:29 Pulse Ox 98 07/17/17 10:47 - Impressions Impression: Patient Name / ID : OLGA Hernandez / [id number] Exam Date : 07/08/2017 12:26:33 ( Approved ) Study Comment : Sex / Age : M / 76Y Creator : Rasta Robles MD Dictator : Rasta Robles MD Audit Associate : Liquor Runner : Rasta Robles MD Approver2 : Report Date : 07/08/2017 13:40:00 My Comment : PROCEDURE: Radiographs of the Left Shoulder HISTORY: pain COMPARISON: No prior. FINDINGS: BONES: Normal. No fracture. JOINTS: Normal. Glenohumeral and acromioclavicular joints preserved. No osteoarthritis. SOFT TISSUES: Normal. OTHER FINDINGS: None. IMPRESSION: No significant or acute findings to account for/ related to the clinical presentation. atient Name / ID : OLGA LUNDBERG A / [id number] Exam Date : 07/02/2017 13:54:21 ( Approved ) Study Comment : Sex / Age : M / 76Y Creator : Magdiel Pinedo MD Dictator : Magdiel Pinedo MD Audit Associate : Liquor Runner : Magdiel Pinedo MD Approver2 : Report Date : 07/02/2017 14:04:09 My Comment : PROCEDURE: Left Hand Radiographs. HISTORY: swelling COMPARISON: None. FINDINGS: BONES: No acute fracture or destructive bony lesion identified. Diffuse osteopenia suggests osteoporosis. JOINTS: Diffuse cortical sclerosis and subtle joint space narrowing throughout the joints of the left hand and incidentally throughout the wrist indicates degenerative joint disease. SOFT TISSUES: Normal. OTHER FINDINGS: None. IMPRESSION: No acute fracture or dislocation throughout left the left hand. degenerative joint changes are appreciated diffusely throughout the left hand. Assessment & Plan (1) Left rotator cuff tear Assessment and Plan: likely chronic, no acute injury or trauma unable to get MRI as patient has pacemaker CT scan ordered consider NSAIDs for pain relief and improvement with PT PT/OT for ROM and strengthening d/w Dr. Marin, agrees with above will follow Status: Chronic (2) Pain in left shoulder Status: Acute
--- NOTE | 2017-07-17 16:07 | CP.PCM.HP ---
History of Present Illness - History of Present Illness History of Present Illness: 76 y/o M, Hx of admission to [facility] on 07/02/17 due CP, found with severe anemia( Hgb 8.6), weaknesses, L shoulder pain and dizziness, Pt was treated in Telemetry floor from DOA to 07/16/17, there after, Pt improved and was stable to be transferred to TCU Unit to continue with Physical Therapy for generalized weakness. No fever, chills, n/v/d, abdominal pain, CP, palpitations, sick contact. Present on Admission - Present on Admission Any Indicators Present on Admission: No Review of Systems - Constitutional Constitutional: Weakness - EENT Eyes: Other (negative) Ears: Other (negative) Nose/Mouth/Throat: Other (negative) - Cardiovascular Cardiovascular: Other (negative) - Respiratory Respiratory: Other (negative) - Gastrointestinal Gastrointestinal: Other (negative) - Genitourinary Genitourinary: Other (negative) - Musculoskeletal Musculoskeletal: Arthralgias, Other (L shoulder) - Integumentary Integumentary: Other (negative) - Neurological Neurological: Weakness - Psychiatric Psychiatric: Other (negative) - Endocrine Endocrine: Other (negative) - Hematologic/Lymphatic Hematologic: Other (negative) Past Patient History - Past Medical History & Family History Past Medical History?: Yes - Past Social History Smoking Status: Former Smoker - CARDIAC Hx Cardiac Disorders: Yes Hx Congestive Heart Failure: Yes Hx Pacemaker: Yes Other/Comment: Dyslipidemia. - PULMONARY Hx Respiratory Disorders: Yes Hx Chronic Obstructive Pulmonary Disease (COPD): Yes - NEUROLOGICAL Hx Neurological Disorder: No - HEENT Hx HEENT Problems: No - RENAL Hx Chronic Kidney Disease: No - ENDOCRINE/METABOLIC Hx Endocrine Disorders: No - HEMATOLOGICAL/ONCOLOGICAL Hx Blood Disorders: No - INTEGUMENTARY Hx Dermatological Problems: No - MUSCULOSKELETAL/RHEUMATOLOGICAL Hx Musculoskeletal Disorders: Yes Hx Back Pain: Yes Hx Falls: Yes Hx Osteoarthritis: Yes - GASTROINTESTINAL Hx Gastrointestinal Disorders: No - GENITOURINARY/GYNECOLOGICAL Hx Genitourinary Disorders: Yes Hx Prostate Problems: Yes - PSYCHIATRIC Hx Psychophysiologic Disorder: No Hx Anxiety: Yes - SURGICAL HISTORY Hx Surgeries: Yes Hx Herniorrhaphy: Yes Hx Tonsillectomy: Yes Other/Comment: PACEMAKER - ANESTHESIA Hx Anesthesia: Yes Hx Anesthesia Reactions: No Hx Malignant Hyperthermia: No Has any member of the family had a problem w/ anesthesia?: No Meds Allergies/Adverse Reactions: Allergies Allergy/AdvReac Type Severity Reaction Status Date / Time No Known Allergies Allergy Verified 07/01/17 18:42 Physical Exam - Constitutional Appears: No Acute Distress - Head Exam Head Exam: NORMAL INSPECTION - Eye Exam Eye Exam: PERRL - ENT Exam ENT Exam: Normal Exam - Neck Exam Neck exam: Positive for: Normal Inspection - Respiratory Exam Respiratory Exam: NORMAL BREATHING PATTERN - Cardiovascular Exam Cardiovascular Exam: REGULAR RHYTHM - GI/Abdominal Exam GI & Abdominal Exam: Normal Bowel Sounds, Soft - Extremities Exam Extremities exam: Positive for: tenderness ( L shoulder) - Back Exam Back exam: NORMAL INSPECTION - Neurological Exam Neurological exam: Alert, Oriented x3 Additional comments: No focal motor sensory deficit, generalized weakness, confused at times. - Psychiatric Exam Psychiatric exam: Anxious - Skin Skin Exam: Warm Results - Vital Signs Recent Vital Signs: Last Vital Signs Temp 98.2 F 07/17/17 15:51 Pulse 101 H 07/17/17 15:51 Resp 20 07/17/17 15:51 BP 116/65 07/17/17 15:51 Pulse Ox 100 07/17/17 15:51 Assessment & Plan (1) Generalized weakness Status: Acute Priority: High (2) Left rotator cuff tear Status: Chronic (3) History of permanent cardiac pacemaker placement Status: Chronic Priority: Medium (4) Metabolic encephalopathy Status: Resolved Priority: High (5) History of CHF (congestive heart failure) Status: Chronic Priority: Medium (6) Anemia Status: Acute Priority: Medium (7) History of BPH Status: Chronic Priority: Medium (8) Anxiety Status: Chronic Priority: Medium - Assessment and Plan (Free Text) Plan: Continue Toprol XL, Procrit, Tylenol and rest of Tx. PT, OT, speech eval, Orthopedic consult appreciated , MRI L shoulder can not be done due to PPM - Date & Time Date: 07/17/17 Time: 12:40
[2017-07-18] MEDS: Metoprolol Succinate 25 mg XL Tab PO SCH (08:45)
[2017-07-18] MEDS: EPOETIN ALFA 10,000 UNIT/ML ML SC SCH (10:58)
--- NOTE | 2017-07-18 15:31 | CP.PCM.PN ---
Subjective - Date & Time of Evaluation Date of Evaluation: 07/18/17 Time of Evaluation: 12:30 - Subjective Subjective: F/U Generalized weakness. ambulating with PT, Objective - Vital Signs/Intake and Output Vital Signs (last 24 hours): Temp Pulse Resp BP Pulse Ox 98.1 F 81 21 151/68 H 97 07/18/17 09:00 07/18/17 09:00 07/18/17 09:00 07/18/17 09:00 07/18/17 09:00 - Medications Medications: Current Medications Acetaminophen (Tylenol 325mg Tab) 650 mg PO Q4 PRN PRN Reason: Pain, Mild (1-3) Last Admin: 07/18/17 10:58 Dose: 650 mg Alprazolam (Xanax) 0.25 mg PO Q12 PRN PRN Reason: Anxiety Stop: 07/23/17 19:09 Epoetin Jhon (Procrit) 10,000 unit SC TTS [facility] Last Admin: 07/18/17 10:58 Dose: 10,000 unit Metoprolol Succinate (Toprol Xl) 25 mg PO DAILY [facility] Last Admin: 07/18/17 08:45 Dose: 25 mg Tamsulosin HCl (Flomax) 0.4 mg PO DAILY [facility] Last Admin: 07/18/17 08:45 Dose: 0.4 mg - Constitutional Appears: No Acute Distress - Head Exam Head Exam: NORMAL INSPECTION - Eye Exam Eye Exam: PERRL - ENT Exam ENT Exam: Normal Exam - Neck Exam Neck Exam: Normal Inspection - Respiratory Exam Respiratory Exam: NORMAL BREATHING PATTERN - Cardiovascular Exam Cardiovascular Exam: REGULAR RHYTHM - GI/Abdominal Exam GI & Abdominal Exam: Soft, Normal Bowel Sounds - Extremities Exam Extremities Exam: Tenderness ( L shoulder) - Back Exam Back Exam: NORMAL INSPECTION - Neurological Exam Neurological Exam: Alert, Oriented x3. absent: Motor Sensory Deficit Additional comments: No focal motor sensory deficit, generalized weakness - Psychiatric Exam Psychiatric exam: Anxious - Skin Skin Exam: Warm Assessment and Plan (1) Generalized weakness Status: Acute (2) Left rotator cuff tear Status: Chronic (3) Anemia Status: Chronic (4) CAD (coronary artery disease) Status: Chronic - Assessment and Plan (Free Text) Plan: Continue Procrit , Toprol , Lidoderm , PT and rest of treatment ,
--- NOTE | 2017-07-19 07:51 | CP.PCM.PN ---
Subjective - Date & Time of Evaluation Date of Evaluation: 07/19/17 Time of Evaluation: 10:44 - Subjective Subjective: Patient states he is still having pain in his shoulder. no change. Denies numbness/tingling, denies neck pain. Review of Systems - Review of Systems All systems: reviewed and no additional remarkable complaints except - Cardiovascular Cardiovascular: UNREMARKABLE - Respiratory Respiratory: UNREMARKABLE - Gastrointestinal Gastrointestinal: UNREMARKABLE - Musculoskeletal Musculoskeletal: As Par HPI - Integumentary Integumentary: UNREMARKABLE - Neurological Neurological: As Per HPI - Hematologic/Lymphatic Hematologic: UNREMARKABLE Objective - Vital Signs/Intake and Output Vital Signs (last 24 hours): Temp Pulse Resp BP Pulse Ox 97.5 F L 89 20 99/57 L 99 07/18/17 20:00 07/18/17 20:00 07/18/17 20:00 07/18/17 20:00 07/18/17 20:00 - Medications Medications: Current Medications Acetaminophen (Tylenol 325mg Tab) 650 mg PO Q4 PRN PRN Reason: Pain, Mild (1-3) Last Admin: 07/19/17 03:16 Dose: 650 mg Alprazolam (Xanax) 0.25 mg PO Q12 PRN PRN Reason: Anxiety Stop: 07/23/17 19:09 Epoetin Jhon (Procrit) 10,000 unit SC TTS [facility] Last Admin: 07/18/17 10:58 Dose: 10,000 unit Lidocaine (Lidoderm) 1 ea TD DAILY [facility] Metoprolol Succinate (Toprol Xl) 25 mg PO DAILY [facility] Last Admin: 07/18/17 08:45 Dose: 25 mg Tamsulosin HCl (Flomax) 0.4 mg PO DAILY [facility] Last Admin: 07/18/17 08:45 Dose: 0.4 mg - Constitutional Appears: Well, No Acute Distress - Head Exam Head Exam: ATRAUMATIC - Neck Exam Neck Exam: Full ROM, Normal Inspection - Respiratory Exam Respiratory Exam: NORMAL BREATHING PATTERN - Cardiovascular Exam Additional comments: +radial pulse - Extremities Exam Additional comments: TTP AC joint/anterior shoulder no swelling or discoloration sensation intact - Neurological Exam Neurological Exam: Alert, Awake, Oriented x3 Neuro motor strength exam: Left Upper Extremity: 5 (5/5 elbow/wrist/fingers, limited AROM left shoulder, no change) - Psychiatric Exam Psychiatric exam: Normal Affect, Normal Mood - Skin Skin Exam: Dry, Intact, Normal Color, Warm Assessment and Plan (1) Left rotator cuff tear Assessment & Plan: PT/OT to maximize ROM and strength recommend NSAIDs if not contraindicated lidoderm patch to help with pain control, patient states pain is worst at night MRI contraindicated as pt has pacemaker d/w Dr. 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 no. Patient Name: TAMIKA ESPINOZA Pt. Address: [address] [place] [address] Rec #: [id number] [place] [address]: Toshia High PA-C Pt CELL Order Location: [facility] : 1940 Male Age: 76 Order #: [id number] Reason for exam: LEFT SHOULDER PAIN, FALL, M25.512 CT Scan EXT UPPER W/O CONTRAST LEFT Exam Date: 07/17/17 This imaging exam was performed at [facility] EXAM: CT Left Upper Extremity Without Intravenous Contrast, Shoulder CLINICAL HISTORY: 76 years old, male; Pain; Shoulder; Left; Additional info: Left shoulder pain, fall, m25.512 TECHNIQUE: Axial computed tomography images of the left shoulder without intravenous contrast. All CT scans at this facility use one or more dose reduction techniques, viz.: automated exposure control; ma/kV adjustment per patient size (including targeted exams where dose is matched to indication; i.e. head); or iterative reconstruction technique. Coronal and sagittal reformatted images were created and reviewed. COMPARISON: No relevant prior studies available. FINDINGS: Bones/joints: Significant degenerative disease, with moderate glenohumeral joint space loss. No acute fracture. No dislocation. Soft tissues: AICD within the soft tissues overlying the left chest. IMPRESSION: Degenerative disease, without acute fracture. If patient is clinically able, MRI may provide additional information. Dictated By: Olinda Eisenberg MD Dictated Date/Time: 07/17/171955 Signed By: Olinda Eisenberg MD Date Signed: 1955 Transcribed By: TON Transcribe Date/Time : 07/17/171955 MERRILL/VERITO
[2017-07-19] MEDS: Lidocaine 5% Patch TD SCH (08:41)
[2017-07-19] MEDS: Metoprolol Succinate 25 mg XL Tab PO SCH (08:41)
[2017-07-19] MEDS: Promethazine/Cod 6.25mg-10mg/5ml Syr UD PO PRN (11:46)
--- NOTE | 2017-07-19 17:49 | CP.PCM.PN ---
Subjective - Date & Time of Evaluation Date of Evaluation: 07/19/17 Time of Evaluation: 10:30 - Subjective Subjective: F/U Weakness. Pain L shoulder , generalized weakness , ambulating with PT Objective - Vital Signs/Intake and Output Vital Signs (last 24 hours): Temp Pulse Resp BP Pulse Ox 98.2 F 93 H 20 114/58 L 96 07/19/17 15:52 07/19/17 15:52 07/19/17 15:52 07/19/17 15:52 07/19/17 15:52 - Medications Medications: Current Medications Acetaminophen (Tylenol 325mg Tab) 650 mg PO Q4 PRN PRN Reason: Pain, Mild (1-3) Last Admin: 07/19/17 03:16 Dose: 650 mg Alprazolam (Xanax) 0.25 mg PO Q12 PRN PRN Reason: Anxiety Stop: 07/23/17 19:09 Epoetin Jhon (Procrit) 10,000 unit SC TTS [facility] Last Admin: 07/18/17 10:58 Dose: 10,000 unit Lidocaine (Lidoderm) 1 ea TD DAILY [facility] Last Admin: 07/19/17 08:41 Dose: 1 ea Metoprolol Succinate (Toprol Xl) 25 mg PO DAILY [facility] Last Admin: 07/19/17 08:41 Dose: 25 mg Promethazine HCl/Codeine (Phenergan/Codeine Oral Syrup) 5 ml PO Q6 PRN PRN Reason: Cough Last Admin: 07/19/17 11:46 Dose: 5 ml Tamsulosin HCl (Flomax) 0.4 mg PO DAILY [facility] Last Admin: 07/19/17 08:41 Dose: 0.4 mg - Constitutional Appears: No Acute Distress - Head Exam Head Exam: NORMAL INSPECTION - Eye Exam Eye Exam: PERRL - ENT Exam ENT Exam: Normal Exam - Neck Exam Neck Exam: Normal Inspection - Respiratory Exam Respiratory Exam: NORMAL BREATHING PATTERN - Cardiovascular Exam Cardiovascular Exam: REGULAR RHYTHM - GI/Abdominal Exam GI & Abdominal Exam: Soft, Normal Bowel Sounds - Extremities Exam Extremities Exam: Tenderness (minimal L shoulder) - Back Exam Back Exam: NORMAL INSPECTION - Neurological Exam Neurological Exam: Alert, Oriented x3 Additional comments: No focal motor /sensory deficit, generalized weakness, confused at times. 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
[2017-07-20 07:11] LABS: BASO % 0.9 % (0.0-2.0); EOS % 0.9 % (0.0-4.0); HEMATOCRIT 29.5 % (35.0-51.0); LYMPH # 1.7 K/uL (1.0-4.3); LYMPH % 46.4 % (20.0-40.0); MEAN CORPUSCULAR HGB CONC 32.1 g/dL (33.0-37.0); MEAN PLATELET VOLUME 7.1 fl (7.2-11.7); MONO # 0.3 K/uL (0.0-0.8); MONO % 8.5 % (0.0-10.0); NEUT # 1.6 K/uL (1.8-7.0); NEUT % 43.3 % (50.0-75.0); NRBC % 0.1 % (0.0-0.0); RED CELL DISTRIBUTION WIDTH 16.5 % (11.5-14.5); WHITE BLOOD COUNT 3.7 K/uL (4.8-10.8)
[2017-07-20 07:23] LABS: ALB/GLOB RATIO 0.8 (1.0-2.1); ALKALINE PHOSPHATASE 103 U/L (38-126); ALT/SGPT 34 U/L (21-72); AST/SGOT 26 U/L (17-59); BILIRUBIN,TOTAL 0.4 mg/dl (0.2-1.3); BLOOD UREA NITROGEN 8 mg/dl (9-20); CALCIUM 8.8 mg/dL (8.4-10.2); CARBON DIOXIDE 27 mmol/L (22-30); CHLORIDE 102 mmol/L (98-107); GFR AFRICAN-AMERICAN > 60; GLUCOSE,RANDOM 86 mg/dL (75-110); SODIUM 136 mmol/l (132-148)
[2017-07-20] MEDS: Metoprolol Succinate 25 mg XL Tab PO SCH (08:45)
[2017-07-20] MEDS: Lidocaine 5% Patch TD SCH (08:46)
--- NOTE | 2017-07-20 10:03 | CP.PCM.PN ---
Subjective - Date & Time of Evaluation Date of Evaluation: 07/20/17 Time of Evaluation: 10:00 - Subjective Subjective: S- svere pain and restricted rom L shoulder Objective - Vital Signs/Intake and Output Vital Signs (last 24 hours): Temp Pulse Resp BP Pulse Ox 97.7 F 94 H 20 118/67 99 07/19/17 20:30 07/20/17 08:45 07/19/17 20:30 07/20/17 08:45 07/19/17 20:30 - Medications Medications: Current Medications Acetaminophen (Tylenol 325mg Tab) 650 mg PO Q4 PRN PRN Reason: Pain, Mild (1-3) Last Admin: 07/20/17 04:03 Dose: 650 mg Alprazolam (Xanax) 0.25 mg PO Q12 PRN PRN Reason: Anxiety Stop: 07/23/17 19:09 Epoetin Jhon (Procrit) 10,000 unit SC TTS [facility] Last Admin: 07/18/17 10:58 Dose: 10,000 unit Lidocaine (Lidoderm) 1 ea TD DAILY [facility] Last Admin: 07/20/17 08:46 Dose: 1 ea Metoprolol Succinate (Toprol Xl) 25 mg PO DAILY [facility] Last Admin: 07/20/17 08:45 Dose: 25 mg Promethazine HCl/Codeine (Phenergan/Codeine Oral Syrup) 5 ml PO Q6 PRN PRN Reason: Cough Last Admin: 07/19/17 11:46 Dose: 5 ml Tamsulosin HCl (Flomax) 0.4 mg PO DAILY [facility] Last Admin: 07/20/17 08:46 Dose: 0.4 mg - Labs Labs: 07/20/17 05:25 07/20/17 05:25 - Skin Additional comments: Objective Systemic- wnl Musculoskekltal \ stance/gait- defrred ROM L shoulder restricted LK shoulder with contracture N/V intact no gross progressive deficits Assessment and Plan - Assessment and Plan (Free Text) Assessment: A- Severe glenohumeral arthritis Deconditioning P- Physio- active /passive ROM
--- NOTE | 2017-07-20 13:56 | CP.PCM.PN ---
Subjective - Subjective Subjective: alert , oriented , generalized weakness improved , pain L shoulder Objective - Vital Signs/Intake and Output Vital Signs (last 24 hours): Temp Pulse Resp BP Pulse Ox 97.7 F 94 H 20 118/67 99 07/19/17 20:30 07/20/17 08:45 07/19/17 20:30 07/20/17 08:45 07/19/17 20:30 - Medications Medications: Current Medications Acetaminophen (Tylenol 325mg Tab) 650 mg PO Q4 PRN PRN Reason: Pain, Mild (1-3) Last Admin: 07/20/17 04:03 Dose: 650 mg Alprazolam (Xanax) 0.25 mg PO Q12 PRN PRN Reason: Anxiety Stop: 07/23/17 19:09 Epoetin Jhon (Procrit) 10,000 unit SC TTS [facility] Last Admin: 07/18/17 10:58 Dose: 10,000 unit Lidocaine (Lidoderm) 1 ea TD DAILY [facility] Last Admin: 07/20/17 08:46 Dose: 1 ea Metoprolol Succinate (Toprol Xl) 25 mg PO DAILY [facility] Last Admin: 07/20/17 08:45 Dose: 25 mg Promethazine HCl/Codeine (Phenergan/Codeine Oral Syrup) 5 ml PO Q6 PRN PRN Reason: Cough Last Admin: 07/19/17 11:46 Dose: 5 ml Tamsulosin HCl (Flomax) 0.4 mg PO DAILY [facility] Last Admin: 07/20/17 08:46 Dose: 0.4 mg - Labs Labs: 07/20/17 05:25 07/20/17 05:25 - Constitutional Appears: No Acute Distress - Head Exam Head Exam: NORMAL INSPECTION - Eye Exam Eye Exam: PERRL - ENT Exam ENT Exam: Normal Exam - Neck Exam Neck Exam: Normal Inspection - Respiratory Exam Respiratory Exam: Clear to Ausculation Bilateral - Cardiovascular Exam Cardiovascular Exam: REGULAR RHYTHM - GI/Abdominal Exam GI & Abdominal Exam: Soft, Normal Bowel Sounds - Extremities Exam Extremities Exam: Tenderness (L shoulder , ROM decreased, R L TKR) - Back Exam Back Exam: NORMAL INSPECTION - Neurological Exam Neurological Exam: Alert, Oriented x3 (no focal motor/sensory deficit) - Psychiatric Exam Psychiatric exam: Normal Affect - Skin Skin Exam: Warm Assessment and Plan (1) Generalized weakness Status: Acute (2) Left rotator cuff tear Status: Chronic (3) 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
[2017-07-20] MEDS: EPOETIN ALFA 10,000 UNIT/ML ML SC SCH (17:08)
[2017-07-21] MEDS: Metoprolol Succinate 25 mg XL Tab PO SCH (09:06)
[2017-07-21] MEDS: Lidocaine 5% Patch TD SCH (09:07)
[2017-07-22] MEDS: Promethazine/Cod 6.25mg-10mg/5ml Syr UD PO PRN (06:16)
[2017-07-22] MEDS: Metoprolol Succinate 25 mg XL Tab PO SCH (08:53)
[2017-07-22] MEDS: Lidocaine 5% Patch TD SCH ×2 (08:54→16:38)
[2017-07-22 16:10] VITALS: RESP 20
--- NOTE | 2017-07-22 17:00 | RAD ---
HISTORY: coughing COMPARISON: 07/01/2017 TECHNIQUE: Chest PA and lateral FINDINGS: LUNGS: No active pulmonary disease. PLEURA: No significant pleural effusion identified. No pneumothorax apparent. CARDIOVASCULAR: Normal heart size. AICD. OSSEOUS STRUCTURES: No significant abnormalities. VISUALIZED UPPER ABDOMEN: Normal. OTHER FINDINGS: None. IMPRESSION: No active disease.
--- NOTE | 2017-07-22 17:15 | CP.PCM.PN ---
Subjective - Date & Time of Evaluation Date of Evaluation: 07/22/17 Time of Evaluation: 12:10 - Subjective Subjective: F/U Generalized weakness. Pt c/o dry cough and pain in L shoulder, L hand Objective - Vital Signs/Intake and Output Vital Signs (last 24 hours): Temp Pulse Resp BP Pulse Ox 97.7 F 90 20 114/62 98 07/22/17 16:09 07/22/17 16:09 07/22/17 16:09 07/22/17 16:09 07/22/17 16:09 - Medications Medications: Current Medications Acetaminophen (Tylenol 325mg Tab) 650 mg PO Q4 PRN PRN Reason: Pain, Mild (1-3) Last Admin: 07/22/17 09:03 Dose: 650 mg Albuterol/Ipratropium (Duoneb 3 Mg/0.5 Mg (3 Ml) Ud) 3 ml INH RTID [facility] Alprazolam (Xanax) 0.25 mg PO Q12 PRN PRN Reason: Anxiety Stop: 07/23/17 19:09 Epoetin Jhon (Procrit) 10,000 unit SC TTS [facility] Last Admin: 07/20/17 17:08 Dose: 10,000 unit Lidocaine (Lidoderm) 2 ea TD DAILY [facility] Last Admin: 07/22/17 16:38 Dose: 2 ea Metoprolol Succinate (Toprol Xl) 25 mg PO DAILY [facility] Last Admin: 07/22/17 08:53 Dose: 25 mg Promethazine HCl/Codeine (Phenergan/Codeine Oral Syrup) 5 ml PO Q6 PRN PRN Reason: Cough Last Admin: 07/22/17 06:16 Dose: 5 ml Tamsulosin HCl (Flomax) 0.4 mg PO DAILY [facility] Last Admin: 07/22/17 08:54 Dose: 0.4 mg - Labs Labs: 07/20/17 05:25 07/20/17 05:25 - Constitutional Appears: No Acute Distress - Head Exam Head Exam: NORMAL INSPECTION - Eye Exam Eye Exam: PERRL - ENT Exam ENT Exam: Normal Exam - Neck Exam Neck Exam: Normal Inspection - Respiratory Exam Respiratory Exam: Decreased Breath Sounds (at bases) - Cardiovascular Exam Cardiovascular Exam: REGULAR RHYTHM - GI/Abdominal Exam GI & Abdominal Exam: Soft, Normal Bowel Sounds - Extremities Exam Extremities Exam: Tenderness (minimal L shoulder, mild tenderness L hand) - Back Exam Back Exam: NORMAL INSPECTION - Neurological Exam Neurological Exam: Awake Additional comments: No focal motor/sensory deficit, generalized weakness improved, confused at times. 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
[2017-07-22] MEDS: Albuterol-Ipratrop 3 mg / 0.5 (3 ml) UD INH SCH (19:09)
[2017-07-23] MEDS: Albuterol-Ipratrop 3 mg / 0.5 (3 ml) UD INH SCH ×3 (07:30→19:17)
[2017-07-23] MEDS: Metoprolol Succinate 25 mg XL Tab PO SCH (08:48)
[2017-07-23] MEDS: Lidocaine 5% Patch TD SCH (08:49)
[2017-07-23] MEDS: EPOETIN ALFA 10,000 UNIT/ML ML SC SCH (08:51)
[2017-07-23] MEDS: Promethazine/Cod 6.25mg-10mg/5ml Syr UD PO PRN (08:52)
--- NOTE | 2017-07-23 16:48 | CP.PCM.PN ---
Subjective - Date & Time of Evaluation Date of Evaluation: 07/23/17 Time of Evaluation: 10:00 - Subjective Subjective: F/U Generalized weakness. Pt feels stronger, c/o of pain in L shoulder and L hand. Objective - Vital Signs/Intake and Output Vital Signs (last 24 hours): Temp Pulse Resp BP Pulse Ox 97.8 F 90 20 105/62 99 07/23/17 08:08 07/23/17 08:48 07/23/17 08:08 07/23/17 08:48 07/23/17 08:08 - Medications Medications: Current Medications Acetaminophen (Tylenol 325mg Tab) 650 mg PO Q4 PRN PRN Reason: Pain, Mild (1-3) Last Admin: 07/23/17 14:56 Dose: 650 mg Albuterol/Ipratropium (Duoneb 3 Mg/0.5 Mg (3 Ml) Ud) 3 ml INH RTID [facility] Last Admin: 07/23/17 13:10 Dose: 3 ml Alprazolam (Xanax) 0.25 mg PO Q12 PRN PRN Reason: Anxiety Stop: 07/23/17 19:09 Epoetin Jhon (Procrit) 10,000 unit SC TTS [facility] Last Admin: 07/23/17 08:51 Dose: 10,000 unit Lidocaine (Lidoderm) 2 ea TD DAILY [facility] Last Admin: 07/23/17 08:49 Dose: 2 ea Metoprolol Succinate (Toprol Xl) 25 mg PO DAILY [facility] Last Admin: 07/23/17 08:48 Dose: 25 mg Promethazine HCl/Codeine (Phenergan/Codeine Oral Syrup) 5 ml PO Q6 PRN PRN Reason: Cough Last Admin: 07/23/17 08:52 Dose: 5 ml Tamsulosin HCl (Flomax) 0.4 mg PO DAILY [facility] Last Admin: 07/23/17 08:48 Dose: 0.4 mg - Labs Labs: 07/20/17 05:25 07/20/17 05:25 - Constitutional Appears: No Acute Distress - Head Exam Head Exam: NORMAL INSPECTION - Eye Exam Eye Exam: PERRL - ENT Exam ENT Exam: Normal Exam - Neck Exam Neck Exam: Normal Inspection - Respiratory Exam Respiratory Exam: Decreased Breath Sounds (at bases), NORMAL BREATHING PATTERN - Cardiovascular Exam Cardiovascular Exam: REGULAR RHYTHM - GI/Abdominal Exam GI & Abdominal Exam: Soft, Normal Bowel Sounds - Extremities Exam Extremities Exam: Tenderness (minimal L shoulder and L hand.) - Back Exam Back Exam: NORMAL INSPECTION - Neurological Exam Neurological Exam: Alert, Awake, CN II-XII Intact, Oriented x3 Additional comments: No focal motor/sensory deficit, generalized weakness. 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 Patient ambulating with walker
--- NOTE | 2017-07-23 16:52 | RAD ---
PROCEDURE: Left Hand Radiographs. HISTORY: swelling pain COMPARISON: None. FINDINGS: BONES: Normal. No fracture. JOINTS: Mild osteoarthritic changes primarily distal interphalangeal joint distribution, to lesser extent proximal interphalangeal joints. SOFT TISSUES: Normal. OTHER FINDINGS: None. IMPRESSION: No acute findings related to/accounting for the clinical presentation. Additional benign and/or incidental findings described above.
[2017-07-24] MEDS: Albuterol-Ipratrop 3 mg / 0.5 (3 ml) UD INH SCH ×3 (07:33→19:04)
[2017-07-24] MEDS: Metoprolol Succinate 25 mg XL Tab PO SCH (08:08)
[2017-07-24] MEDS: Lidocaine 5% Patch TD SCH (08:08)
--- NOTE | 2017-07-24 11:50 | CP.PCM.PN ---
Subjective - Date & Time of Evaluation Date of Evaluation: 07/24/17 Time of Evaluation: 08:00 - Subjective Subjective: Patient complaining of left shoulder pain. Review of Systems - Review of Systems All systems: reviewed and no additional remarkable complaints except - Cardiovascular Cardiovascular: UNREMARKABLE - Respiratory Respiratory: UNREMARKABLE - Gastrointestinal Gastrointestinal: UNREMARKABLE - Musculoskeletal Musculoskeletal: As Par HPI - Integumentary Integumentary: UNREMARKABLE - Neurological Neurological: UNREMARKABLE - Hematologic/Lymphatic Hematologic: UNREMARKABLE Objective - Vital Signs/Intake and Output Vital Signs (last 24 hours): Temp Pulse Resp BP Pulse Ox 97.0 F L 86 20 110/60 98 07/24/17 08:16 07/24/17 08:16 07/24/17 08:16 07/24/17 08:16 07/24/17 08:16 - Medications Medications: Current Medications Acetaminophen (Tylenol 325mg Tab) 650 mg PO Q4 PRN PRN Reason: Pain, Mild (1-3) Last Admin: 07/23/17 22:23 Dose: 650 mg Albuterol/Ipratropium (Duoneb 3 Mg/0.5 Mg (3 Ml) Ud) 3 ml INH RTID [facility] Last Admin: 07/24/17 07:33 Dose: 3 ml Epoetin Jhon (Procrit) 10,000 unit SC TTS [facility] Last Admin: 07/23/17 08:51 Dose: 10,000 unit Lidocaine (Lidoderm) 2 ea TD DAILY [facility] Last Admin: 07/24/17 08:08 Dose: 2 ea Metoprolol Succinate (Toprol Xl) 25 mg PO DAILY [facility] Last Admin: 07/24/17 08:08 Dose: 25 mg Promethazine HCl/Codeine (Phenergan/Codeine Oral Syrup) 5 ml PO Q6 PRN PRN Reason: Cough Last Admin: 07/23/17 08:52 Dose: 5 ml Tamsulosin HCl (Flomax) 0.4 mg PO DAILY [facility] Last Admin: 07/24/17 08:08 Dose: 0.4 mg - Labs Labs: 07/20/17 05:25 07/20/17 05:25 - Constitutional Appears: Well, No Acute Distress - Head Exam Head Exam: ATRAUMATIC - Respiratory Exam Respiratory Exam: NORMAL BREATHING PATTERN - Extremities Exam Additional comments: Limited left shoulder ROM with pain +ROM fingers/wrist elbow sensation intact - Neurological Exam Neurological Exam: Alert, Awake, Oriented x3 - Psychiatric Exam Psychiatric exam: Normal Affect, Normal Mood - Skin Skin Exam: Dry, Intact, Normal Color, Warm Assessment and Plan (1) Left rotator cuff tear Assessment & Plan: PT/OT appreciated. Recommend gentle ROM exercises at this time despite pain to prevent further stiffness patient will need continued PT/OT to maximize function of LUE recommend NSAIDs d/w Dr. 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
--- NOTE | 2017-07-24 19:15 | CP.PCM.PN ---
Subjective - Date & Time of Evaluation Date of Evaluation: 07/24/17 Time of Evaluation: 10:40 - Subjective Subjective: F/U Generalized weakness. Pain L shoulder , L hand improved , generalized weakness improved Objective - Vital Signs/Intake and Output Vital Signs (last 24 hours): Temp Pulse Resp BP Pulse Ox 97.7 F 106 H 20 108/61 98 07/24/17 15:37 07/24/17 15:37 07/24/17 15:37 07/24/17 15:37 07/24/17 15:37 - Medications Medications: Current Medications Acetaminophen (Tylenol 325mg Tab) 650 mg PO Q4 PRN PRN Reason: Pain, Mild (1-3) Last Admin: 07/23/17 22:23 Dose: 650 mg Albuterol/Ipratropium (Duoneb 3 Mg/0.5 Mg (3 Ml) Ud) 3 ml INH RTID [facility] Last Admin: 07/24/17 19:04 Dose: 3 ml Epoetin Jhon (Procrit) 10,000 unit SC TTS [facility] Last Admin: 07/23/17 08:51 Dose: 10,000 unit Lidocaine (Lidoderm) 2 ea TD DAILY [facility] Last Admin: 07/24/17 08:08 Dose: 2 ea Metoprolol Succinate (Toprol Xl) 25 mg PO DAILY [facility] Last Admin: 07/24/17 08:08 Dose: 25 mg Promethazine HCl/Codeine (Phenergan/Codeine Oral Syrup) 5 ml PO Q6 PRN PRN Reason: Cough Last Admin: 07/23/17 08:52 Dose: 5 ml Tamsulosin HCl (Flomax) 0.4 mg PO DAILY [facility] Last Admin: 07/24/17 08:08 Dose: 0.4 mg - Labs Labs: 07/20/17 05:25 07/20/17 05:25 - Constitutional Appears: No Acute Distress - Head Exam Head Exam: NORMAL INSPECTION - Eye Exam Eye Exam: PERRL - ENT Exam ENT Exam: Normal Exam - Neck Exam Neck Exam: Normal Inspection - Respiratory Exam Respiratory Exam: Decreased Breath Sounds (at bases) - Cardiovascular Exam Cardiovascular Exam: REGULAR RHYTHM - GI/Abdominal Exam GI & Abdominal Exam: Soft, Normal Bowel Sounds - Extremities Exam Extremities Exam: Tenderness (minimal L shoulder , L hand, ROM L shoulder decreased) - Back Exam Back Exam: NORMAL INSPECTION - Neurological Exam Neurological Exam: Awake Additional comments: No focal motor/sensory deficit, generalized weakness, confused at times - Psychiatric Exam Psychiatric exam: Anxious - Skin Skin Exam: Warm Assessment and Plan (1) Generalized weakness Status: Acute (2) COPD exacerbation Status: Acute (3) Left rotator cuff tear Status: Chronic (4) 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
[2017-07-25] MEDS: Albuterol-Ipratrop 3 mg / 0.5 (3 ml) UD INH SCH ×3 (07:32→19:09)
[2017-07-25] MEDS: Metoprolol Succinate 25 mg XL Tab PO SCH (08:59)
[2017-07-25] MEDS: EPOETIN ALFA 10,000 UNIT/ML ML SC SCH (09:00)
[2017-07-25] MEDS: Lidocaine 5% Patch TD SCH (09:00)
--- NOTE | 2017-07-25 15:18 | CP.PCM.PN ---
Subjective - Date & Time of Evaluation Date of Evaluation: 07/25/17 Time of Evaluation: 12:30 - Subjective Subjective: F/U Generalized weakness. Pain L shoulder, minimal L hand , generalized weakness improved , no cough , no SOB Objective - Vital Signs/Intake and Output Vital Signs (last 24 hours): Temp Pulse Resp BP Pulse Ox 97.9 F 90 20 108/64 98 07/25/17 07:40 07/25/17 08:59 07/25/17 07:40 07/25/17 08:59 07/25/17 07:40 - Medications Medications: Current Medications Acetaminophen (Tylenol 325mg Tab) 650 mg PO Q4 PRN PRN Reason: Pain, Mild (1-3) Last Admin: 07/25/17 09:02 Dose: 650 mg Albuterol/Ipratropium (Duoneb 3 Mg/0.5 Mg (3 Ml) Ud) 3 ml INH RTID [facility] Last Admin: 07/25/17 13:00 Dose: 3 ml Epoetin Jhon (Procrit) 10,000 unit SC TTS [facility] Last Admin: 07/25/17 09:00 Dose: 10,000 unit Lidocaine (Lidoderm) 2 ea TD DAILY [facility] Last Admin: 07/25/17 09:00 Dose: 2 ea Metoprolol Succinate (Toprol Xl) 25 mg PO DAILY [facility] Last Admin: 07/25/17 08:59 Dose: 25 mg Promethazine HCl/Codeine (Phenergan/Codeine Oral Syrup) 5 ml PO Q6 PRN PRN Reason: Cough Last Admin: 07/23/17 08:52 Dose: 5 ml Tamsulosin HCl (Flomax) 0.4 mg PO DAILY [facility] Last Admin: 07/25/17 08:59 Dose: 0.4 mg - Labs Labs: 07/20/17 05:25 07/20/17 05:25 - Constitutional Appears: No Acute Distress - Head Exam Head Exam: NORMAL INSPECTION - Eye Exam Eye Exam: PERRL - ENT Exam ENT Exam: Normal Exam - Neck Exam Neck Exam: Normal Inspection - Respiratory Exam Respiratory Exam: Decreased Breath Sounds (at bases), NORMAL BREATHING PATTERN - Cardiovascular Exam Cardiovascular Exam: REGULAR RHYTHM - GI/Abdominal Exam GI & Abdominal Exam: Soft, Normal Bowel Sounds - Extremities Exam Extremities Exam: Tenderness (L shoulder ROM decreased, minimal L hand) - Back Exam Back Exam: NORMAL INSPECTION - Neurological Exam Neurological Exam: Awake Additional comments: forgetful , no focal motor/sensory deficit, generalized weakness. 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
[2017-07-26] MEDS: Albuterol-Ipratrop 3 mg / 0.5 (3 ml) UD INH SCH ×3 (07:38→19:25)
[2017-07-26] MEDS: Lidocaine 5% Patch TD SCH (08:15)
[2017-07-26] MEDS: Metoprolol Succinate 25 mg XL Tab PO SCH (08:15)
--- NOTE | 2017-07-26 10:42 | CP.PCM.PN ---
Subjective - Date & Time of Evaluation Date of Evaluation: 07/26/17 Time of Evaluation: 08:30 - Subjective Subjective: Patient states shoulder and hand feel better with lidoderm patches. No new comlaints. Review of Systems - Review of Systems All systems: reviewed and no additional remarkable complaints except - Cardiovascular Cardiovascular: UNREMARKABLE - Respiratory Respiratory: UNREMARKABLE - Musculoskeletal Musculoskeletal: UNREMARKABLE - Neurological Neurological: UNREMARKABLE Objective - Vital Signs/Intake and Output Vital Signs (last 24 hours): Temp Pulse Resp BP Pulse Ox 98.4 F 115 H 20 109/65 96 07/26/17 08:27 07/26/17 08:27 07/26/17 08:27 07/26/17 08:27 07/26/17 08:27 - Medications Medications: Current Medications Acetaminophen (Tylenol 325mg Tab) 650 mg PO Q4 PRN PRN Reason: Pain, Mild (1-3) Last Admin: 07/25/17 09:02 Dose: 650 mg Albuterol/Ipratropium (Duoneb 3 Mg/0.5 Mg (3 Ml) Ud) 3 ml INH RTID [facility] Last Admin: 07/26/17 07:38 Dose: 3 ml Epoetin Jhon (Procrit) 10,000 unit SC TTS [facility] Last Admin: 07/25/17 09:00 Dose: 10,000 unit Lidocaine (Lidoderm) 2 ea TD DAILY [facility] Last Admin: 07/26/17 08:15 Dose: 2 ea Metoprolol Succinate (Toprol Xl) 25 mg PO DAILY [facility] Last Admin: 07/26/17 08:15 Dose: 25 mg Promethazine HCl/Codeine (Phenergan/Codeine Oral Syrup) 5 ml PO Q6 PRN PRN Reason: Cough Last Admin: 07/23/17 08:52 Dose: 5 ml Tamsulosin HCl (Flomax) 0.4 mg PO DAILY [facility] Last Admin: 07/26/17 08:15 Dose: 0.4 mg - Labs Labs: 07/20/17 05:25 07/20/17 05:25 - Extremities Exam Additional comments: Left shoulder: appears less tender. ROM not improving as of yet.NVID. +ROM fingers/wrist/sensation intact, +radial pulse - Neurological Exam Neurological Exam: Alert, Awake, Oriented x3 - Psychiatric Exam Psychiatric exam: Normal Affect, Normal Mood - Skin Skin Exam: Dry, Intact, Normal Color, Warm Assessment and Plan (1) Left rotator cuff tear Assessment & Plan: PT/OT lidoderm recommend NSAIDs d/w Dr. 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
--- NOTE | 2017-07-26 14:48 | CP.PCM.CON ---
History of Present Illness - History of Present Illness History of Present Illness: 76 y/o male with extensive PMHx was seen and evaluated at bedside on TCU for right foot pain. Patient states that he does not know why he was brought to the hospital but according to the nurse it was due to syncope. The nurse denies of any trauma or the fall after the syncope. Patient is a poor historian and is not responding to the questions asked. Allergies: N.K.D.A Review of Systems - Constitutional Constitutional: As Per HPI Past Patient History - Past Medical History & Family History Past Medical History?: Yes - Past Social History Smoking Status: Former Smoker - CARDIAC Hx Cardiac Disorders: Yes Hx Congestive Heart Failure: Yes Hx Pacemaker: Yes Other/Comment: Dyslipidemia. - PULMONARY Hx Respiratory Disorders: Yes Hx Chronic Obstructive Pulmonary Disease (COPD): Yes - NEUROLOGICAL Hx Neurological Disorder: No - HEENT Hx HEENT Problems: No - RENAL Hx Chronic Kidney Disease: No - ENDOCRINE/METABOLIC Hx Endocrine Disorders: No - HEMATOLOGICAL/ONCOLOGICAL Hx Blood Disorders: No - INTEGUMENTARY Hx Dermatological Problems: No - MUSCULOSKELETAL/RHEUMATOLOGICAL Hx Musculoskeletal Disorders: Yes Hx Back Pain: Yes Hx Falls: Yes Hx Osteoarthritis: Yes - GASTROINTESTINAL Hx Gastrointestinal Disorders: No - GENITOURINARY/GYNECOLOGICAL Hx Genitourinary Disorders: Yes Hx Prostate Problems: Yes - PSYCHIATRIC Hx Psychophysiologic Disorder: No Hx Anxiety: Yes - SURGICAL HISTORY Hx Surgeries: Yes Hx Herniorrhaphy: Yes Hx Tonsillectomy: Yes Other/Comment: PACEMAKER - ANESTHESIA Hx Anesthesia: Yes Hx Anesthesia Reactions: No Hx Malignant Hyperthermia: No Has any member of the family had a problem w/ anesthesia?: No Meds Allergies/Adverse Reactions: Allergies Allergy/AdvReac Type Severity Reaction Status Date / Time No Known Allergies Allergy Verified 07/01/17 18:42 - Medications Medications: Current Medications Acetaminophen (Tylenol 325mg Tab) 650 mg PO Q4 PRN PRN Reason: Pain, Mild (1-3) Last Admin: 07/25/17 09:02 Dose: 650 mg Albuterol/Ipratropium (Duoneb 3 Mg/0.5 Mg (3 Ml) Ud) 3 ml INH RTID [facility] Last Admin: 07/26/17 13:05 Dose: 3 ml Epoetin Jhon (Procrit) 10,000 unit SC TTS [facility] Last Admin: 07/25/17 09:00 Dose: 10,000 unit Lidocaine (Lidoderm) 2 ea TD DAILY [facility] Last Admin: 07/26/17 08:15 Dose: 2 ea Metoprolol Succinate (Toprol Xl) 25 mg PO DAILY [facility] Last Admin: 07/26/17 08:15 Dose: 25 mg Promethazine HCl/Codeine (Phenergan/Codeine Oral Syrup) 5 ml PO Q6 PRN PRN Reason: Cough Last Admin: 07/23/17 08:52 Dose: 5 ml Tamsulosin HCl (Flomax) 0.4 mg PO DAILY [facility] Last Admin: 07/26/17 08:15 Dose: 0.4 mg Physical Exam - Constitutional Appears: Well, Non-toxic, No Acute Distress - Neurological Exam Neurological exam: Alert, Oriented x3 Additional comments: Bilateral LE focused exam VASC: DP/PT pulses are palpable 2/4, Cap refill time: < 3 sec to all digits, Temp gradient: warm to warm from proximal to distal, no pitting or non-pitting edema appreciated to b/l LE DERM: nails are slightly dystrophic but length is wnl, no inter digital maceration, no open lesions, no erythema, no clinical suspicion of active infection NEURO: Protective sensation slightly diminished ORTHO: Pain/tenderness on palpation of plantar sub met head 2 on the right, no pain on active or passive ROM of the 2nd digit on the right, no pain during Dorsiflexion, plantarflexion, inversion and eversion, MMT: 5/5 in all 4 compartments - Psychiatric Exam Psychiatric exam: Normal Affect, Normal Mood Results - Vital Signs Recent Vital Signs: Last Vital Signs Temp 98.4 F 07/26/17 08:27 Pulse 115 H 07/26/17 08:27 Resp 20 07/26/17 08:27 BP 109/65 07/26/17 08:27 Pulse Ox 96 07/26/17 08:27 - Labs Result Diagrams: 07/28/17 08:03 07/28/17 08:03 Assessment & Plan - Assessment and Plan (Free Text) Assessment: 76 y/o male seen and evaluated at bedside in TCU for right foot pain Plan: Patient seen and evaluated at bedside Discussed with attending, Dr. Peters Vitals, Labs, charts reviewed - afebrile X-rays of the R foot ordered - pending Modified west compression dressing applied to R foot Surgical shoe ordered for the right foot. Educated to wear surgical shoe while weightbearing Will follow up with x-ray once taken Thank you for the podiatry consult and allowing to take part in patient care - Date & Time Date: 07/26/17 Time: 14:55
--- NOTE | 2017-07-26 19:07 | CP.PCM.PN ---
Subjective - Date & Time of Evaluation Date of Evaluation: 07/26/17 Time of Evaluation: 13:30 - Subjective Subjective: pain L shoulder , L hand , pain R foot since yesterday with difficulty to walk Objective - Vital Signs/Intake and Output Vital Signs (last 24 hours): Temp Pulse Resp BP Pulse Ox 98.2 F 106 H 20 98/50 L 96 07/26/17 15:37 07/26/17 15:37 07/26/17 15:37 07/26/17 15:37 07/26/17 15:37 - Medications Medications: Current Medications Acetaminophen (Tylenol 325mg Tab) 650 mg PO Q4 PRN PRN Reason: Pain, Mild (1-3) Last Admin: 07/25/17 09:02 Dose: 650 mg Albuterol/Ipratropium (Duoneb 3 Mg/0.5 Mg (3 Ml) Ud) 3 ml INH RTID [facility] Last Admin: 07/26/17 13:05 Dose: 3 ml Epoetin Jhon (Procrit) 10,000 unit SC TTS [facility] Last Admin: 07/25/17 09:00 Dose: 10,000 unit Lidocaine (Lidoderm) 2 ea TD DAILY [facility] Last Admin: 07/26/17 08:15 Dose: 2 ea Metoprolol Succinate (Toprol Xl) 25 mg PO DAILY [facility] Last Admin: 07/26/17 08:15 Dose: 25 mg Promethazine HCl/Codeine (Phenergan/Codeine Oral Syrup) 5 ml PO Q6 PRN PRN Reason: Cough Last Admin: 07/23/17 08:52 Dose: 5 ml Tamsulosin HCl (Flomax) 0.4 mg PO DAILY [facility] Last Admin: 07/26/17 08:15 Dose: 0.4 mg - Labs Labs: 07/20/17 05:25 07/20/17 05:25 - Constitutional Appears: No Acute Distress - Head Exam Head Exam: NORMAL INSPECTION - Eye Exam Eye Exam: PERRL - ENT Exam ENT Exam: Normal Exam - Neck Exam Neck Exam: Normal Inspection - Respiratory Exam Respiratory Exam: Decreased Breath Sounds (at bases) - Cardiovascular Exam Cardiovascular Exam: REGULAR RHYTHM - GI/Abdominal Exam GI & Abdominal Exam: Soft, Normal Bowel Sounds - Extremities Exam Extremities Exam: Tenderness Additional comments: L shoulder with ROM decreased, minimal tenderness L hand , tenderness R foot - Back Exam Back Exam: NORMAL INSPECTION - Neurological Exam Neurological Exam: Alert, Oriented x3 (forgetful at times , generalized weakness , no focal motor/sensory deficit) - Psychiatric Exam Psychiatric exam: Normal Mood - Skin Skin Exam: Warm Assessment and Plan (1) Generalized weakness Status: Acute (2) COPD exacerbation Status: Resolved (3) Left rotator cuff tear Status: Chronic (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
[2017-07-27] MEDS: Albuterol-Ipratrop 3 mg / 0.5 (3 ml) UD INH SCH ×3 (07:36→19:33)
--- NOTE | 2017-07-27 08:50 | RAD ---
PROCEDURE: Right Foot Radiographs. HISTORY: pain to right foot COMPARISON: None. FINDINGS: BONES: Normal. No fracture. JOINTS: Normal. SOFT TISSUES: Normal. OTHER FINDINGS: None. IMPRESSION: Normal right foot radiographs.
[2017-07-27] MEDS: Lidocaine 5% Patch TD SCH (08:54)
[2017-07-27] MEDS: Metoprolol Succinate 25 mg XL Tab PO SCH (08:55)
[2017-07-27] MEDS: EPOETIN ALFA 10,000 UNIT/ML ML SC SCH (08:56)
--- NOTE | 2017-07-27 18:17 | CP.PCM.PN ---
Subjective - Date & Time of Evaluation Date of Evaluation: 07/27/17 Time of Evaluation: 12:00 - Subjective Subjective: F/U Generalized weakness. Pt c/o of pain in L shoulder, L hand and R foot. Objective - Vital Signs/Intake and Output Vital Signs (last 24 hours): Temp Pulse Resp BP Pulse Ox 98.1 F 100 H 20 106/65 98 07/27/17 17:12 07/27/17 17:12 07/27/17 17:12 07/27/17 17:12 07/27/17 17:12 - Medications Medications: Current Medications Acetaminophen (Tylenol 325mg Tab) 650 mg PO Q4 PRN PRN Reason: Pain, Mild (1-3) Last Admin: 07/25/17 09:02 Dose: 650 mg Albuterol/Ipratropium (Duoneb 3 Mg/0.5 Mg (3 Ml) Ud) 3 ml INH RTID [facility] Last Admin: 07/27/17 14:22 Dose: 3 ml Epoetin Jhon (Procrit) 10,000 unit SC TTS [facility] Last Admin: 07/27/17 08:56 Dose: 10,000 unit Lidocaine (Lidoderm) 2 ea TD DAILY [facility] Last Admin: 07/27/17 08:54 Dose: 2 ea Metoprolol Succinate (Toprol Xl) 25 mg PO DAILY [facility] Last Admin: 07/27/17 08:55 Dose: 25 mg Promethazine HCl/Codeine (Phenergan/Codeine Oral Syrup) 5 ml PO Q6 PRN PRN Reason: Cough Last Admin: 07/23/17 08:52 Dose: 5 ml Tamsulosin HCl (Flomax) 0.4 mg PO DAILY [facility] Last Admin: 07/27/17 08:55 Dose: 0.4 mg - Labs Labs: 07/20/17 05:25 07/20/17 05:25 - Constitutional Appears: No Acute Distress - Head Exam Head Exam: NORMAL INSPECTION - Eye Exam Eye Exam: PERRL - ENT Exam ENT Exam: Normal Exam - Neck Exam Neck Exam: Normal Inspection - Respiratory Exam Respiratory Exam: Decreased Breath Sounds (at bases) - Cardiovascular Exam Cardiovascular Exam: REGULAR RHYTHM - GI/Abdominal Exam GI & Abdominal Exam: Soft, Normal Bowel Sounds - Extremities Exam Extremities Exam: Tenderness (L shoulder with ROM decrease, minimal tenderness L hand and R foot.) - Back Exam Back Exam: NORMAL INSPECTION - Neurological Exam Neurological Exam: Alert, Oriented x3 Additional comments: No focal motor/sensory deficit, forgetful at times, generalized weakness. 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
[2017-07-28 08:22] LABS: BASO % 0.8 % (0.0-2.0); HEMATOCRIT 30.4 % (35.0-51.0); LYMPH # 1.7 K/uL (1.0-4.3); LYMPH % 35.4 % (20.0-40.0); MEAN CELL VOLUME 79.1 fl (80.0-94.0); MEAN CORPUSCULAR HEMOGLOBIN 25.8 pg (27.0-31.0); MEAN CORPUSCULAR HGB CONC 32.6 g/dL (33.0-37.0); MEAN PLATELET VOLUME 7.1 fl (7.2-11.7); MONO # 0.5 K/uL (0.0-0.8); MONO % 9.6 % (0.0-10.0); NEUT # 2.6 K/uL (1.8-7.0); NEUT % 53.2 % (50.0-75.0); NRBC % 0.1 % (0.0-0.0); RED CELL DISTRIBUTION WIDTH 16.7 % (11.5-14.5); WHITE BLOOD COUNT 4.8 K/uL (4.8-10.8)
[2017-07-28] MEDS: Lidocaine 5% Patch TD SCH (08:26)
[2017-07-28] MEDS: Metoprolol Succinate 25 mg XL Tab PO SCH (08:26)
[2017-07-28 08:30] LABS: ALB/GLOB RATIO 0.9 (1.0-2.1); ALKALINE PHOSPHATASE 121 U/L (38-126); ALT/SGPT 34 U/L (21-72); AST/SGOT 31 U/L (17-59); BILIRUBIN,TOTAL 0.5 mg/dl (0.2-1.3); BLOOD UREA NITROGEN 11 mg/dl (9-20); CALCIUM 9.1 mg/dL (8.4-10.2); CARBON DIOXIDE 25 mmol/L (22-30); CHLORIDE 95 mmol/L (98-107); CHOLESTEROL 120 mg/dL (0-199); GFR AFRICAN-AMERICAN > 60; GLUCOSE,RANDOM 92 mg/dL (75-110); POTASSIUM 4.6 MMOL/L (3.6-5.0); SODIUM 128 mmol/l (132-148); TOTAL PROTEIN 7.4 G/DL (6.3-8.2)
[2017-07-28 09:02] LABS: THYROID STIMULATING HORMONE 1.38 mIU/ML (0.46-4.68)
[2017-07-28] MEDS: Albuterol-Ipratrop 3 mg / 0.5 (3 ml) UD INH SCH ×3 (09:02→19:17)
[2017-07-28 11:14] LABS: RBC URINE 5 /hpf (0-3); URINE BACTERIA RARE (<OCC); URINE BILIRUBIN NEGATIVE (NEGATIVE); URINE COLOR YELLOW (YELLOW); URINE GLUCOSE (UA) NEG (Normal); URINE KETONE NEGATIVE (NEGATIVE); URINE LEUKOCYTE ESTERASE NEG Leu/uL (Negative); URINE PROTEIN 30 mg/dL (NEGATIVE); URINE UROBILINOGEN 0.2-1.0 mg/dL (0.2-1.0); WBC URINE 1 /hpf (0-5)
[2017-07-28 11:16] LABS: URINE BLOOD TRACE (NEGATIVE)
[2017-07-29] MEDS: Albuterol-Ipratrop 3 mg / 0.5 (3 ml) UD INH SCH ×3 (07:21→19:10)
[2017-07-29] MEDS: Metoprolol Succinate 25 mg XL Tab PO SCH (08:17)
[2017-07-29] MEDS: Lidocaine 5% Patch TD SCH (08:18)
--- NOTE | 2017-07-29 15:12 | CP.PCM.PN ---
Subjective - Date & Time of Evaluation Date of Evaluation: 07/29/17 Time of Evaluation: 15:09 - Subjective Subjective: 76 y/o male was seen and evaluated at bedside in TCU for right foot pain. Patient states that his pain has gotten better but it still bothers him. Patient states that he uses a surgical shoe that was given to him when he walks which helps him with the pain. Patient states that he takes the TAZ bandage off because he does not like them. Denies of any other pedal complains at this time. Objective - Vital Signs/Intake and Output Vital Signs (last 24 hours): Temp Pulse Resp BP Pulse Ox 97.9 F 79 20 101/56 L 97 07/29/17 09:00 07/29/17 13:40 07/29/17 09:00 07/29/17 09:00 07/29/17 13:40 - Medications Medications: Current Medications Acetaminophen (Tylenol 325mg Tab) 650 mg PO Q4 PRN PRN Reason: Pain, Mild (1-3) Last Admin: 07/25/17 09:02 Dose: 650 mg Albuterol/Ipratropium (Duoneb 3 Mg/0.5 Mg (3 Ml) Ud) 3 ml INH RTID [facility] Last Admin: 07/29/17 13:06 Dose: 3 ml Epoetin Jhon (Procrit) 10,000 unit SC TTS [facility] Last Admin: 07/27/17 08:56 Dose: 10,000 unit Lidocaine (Lidoderm) 2 ea TD DAILY [facility] Last Admin: 07/29/17 08:18 Dose: 2 ea Metoprolol Succinate (Toprol Xl) 25 mg PO DAILY [facility] Last Admin: 07/29/17 08:17 Dose: 25 mg Promethazine HCl/Codeine (Phenergan/Codeine Oral Syrup) 5 ml PO Q6 PRN PRN Reason: Cough Last Admin: 07/23/17 08:52 Dose: 5 ml Tamsulosin HCl (Flomax) 0.4 mg PO DAILY [facility] Last Admin: 07/29/17 08:17 Dose: 0.4 mg - Labs Labs: 07/28/17 08:03 07/28/17 08:03 - Constitutional Appears: Well, Non-toxic, No Acute Distress - Extremities Exam Extremities Exam: absent: Calf Tenderness Additional comments: Bilateral LE focused exam VASC: DP/PT pulses are palpable 2/4, Cap refill time: < 3 sec to all digits, Temp gradient: warm to warm from proximal to distal, no pitting or non-pitting edema appreciated to b/l LE DERM: nails are slightly dystrophic but length is wnl, no inter digital maceration, no open lesions, no erythema, no clinical suspicion of active infection NEURO: Protective sensation slightly diminished ORTHO: Pain/tenderness on palpation of plantar sub met head 2 on the right, no pain on active or passive ROM of the 2nd digit on the right, no pain during Dorsiflexion, plantarflexion, inversion and eversion, MMT: 5/5 in all 4 compartments - Neurological Exam Neurological Exam: Alert, Awake, Oriented x3 - Psychiatric Exam Psychiatric exam: Normal Affect, Normal Mood Assessment and Plan - Assessment and Plan (Free Text) Assessment: 76 y/o male seen and evaluated at bedside in TCU for right foot pain Plan: Patient seen and evaluated at bedside Discussed with attending, Dr. Peters Vitals, Labs, charts reviewed - afebrile X-rays of the R foot ordered/reviewed - no acute fractures or dislocations noted. Continue modified west compression dressing Surgical shoe at bedside. Educated to wear surgical shoe while weightbearing Patient is stable from podiatry standpoint - Please re-consult as needed
--- NOTE | 2017-07-29 17:38 | CP.PCM.PN ---
Subjective - Date & Time of Evaluation Date of Evaluation: 07/29/17 Time of Evaluation: 13:50 - Subjective Subjective: F/U generalized weakness. Pt doing well with PT, less pain in L shoulder. Objective - Vital Signs/Intake and Output Vital Signs (last 24 hours): Temp Pulse Resp BP Pulse Ox 98.2 F 105 H 20 102/65 98 07/29/17 16:32 07/29/17 16:32 07/29/17 16:32 07/29/17 16:32 07/29/17 16:32 - Medications Medications: Current Medications Acetaminophen (Tylenol 325mg Tab) 650 mg PO Q4 PRN PRN Reason: Pain, Mild (1-3) Last Admin: 07/25/17 09:02 Dose: 650 mg Albuterol/Ipratropium (Duoneb 3 Mg/0.5 Mg (3 Ml) Ud) 3 ml INH RTID [facility] Last Admin: 07/29/17 13:06 Dose: 3 ml Epoetin Jhon (Procrit) 10,000 unit SC TTS [facility] Last Admin: 07/27/17 08:56 Dose: 10,000 unit Lidocaine (Lidoderm) 2 ea TD DAILY [facility] Last Admin: 07/29/17 08:18 Dose: 2 ea Metoprolol Succinate (Toprol Xl) 25 mg PO DAILY [facility] Last Admin: 07/29/17 08:17 Dose: 25 mg Promethazine HCl/Codeine (Phenergan/Codeine Oral Syrup) 5 ml PO Q6 PRN PRN Reason: Cough Last Admin: 07/23/17 08:52 Dose: 5 ml Tamsulosin HCl (Flomax) 0.4 mg PO DAILY [facility] Last Admin: 07/29/17 08:17 Dose: 0.4 mg - Labs Labs: 07/28/17 08:03 07/28/17 08:03 - Constitutional Appears: No Acute Distress - Head Exam Head Exam: NORMAL INSPECTION - Eye Exam Eye Exam: PERRL - ENT Exam ENT Exam: Normal Exam - Neck Exam Neck Exam: Normal Inspection - Respiratory Exam Respiratory Exam: Decreased Breath Sounds (at bases) - Cardiovascular Exam Cardiovascular Exam: REGULAR RHYTHM - GI/Abdominal Exam GI & Abdominal Exam: Soft, Normal Bowel Sounds - Back Exam Back Exam: NORMAL INSPECTION - Neurological Exam Neurological Exam: Alert, Oriented x3 Additional comments: Generalized weakness, no focal motor/sensory deficit. 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
[2017-07-30] MEDS: Albuterol-Ipratrop 3 mg / 0.5 (3 ml) UD INH SCH ×2 (08:21→14:32)
[2017-07-30] MEDS: Lidocaine 5% Patch TD SCH (09:12)
[2017-07-30] MEDS: Metoprolol Succinate 25 mg XL Tab PO SCH (09:13)
[2017-07-30] MEDS: EPOETIN ALFA 10,000 UNIT/ML ML SC SCH (09:14)
--- NOTE | 2017-07-30 15:26 | CP.PCM.PN ---
Subjective - Date & Time of Evaluation Date of Evaluation: 07/30/17 Time of Evaluation: 09:00 - Subjective Subjective: F/U generalized weakness. Pt with pain in L shoulder improved and generalized weakness improved. Objective - Vital Signs/Intake and Output Vital Signs (last 24 hours): Temp Pulse Resp BP Pulse Ox 99.1 F 100 H 20 110/59 L 98 07/30/17 08:31 07/30/17 09:13 07/30/17 08:31 07/30/17 09:13 07/30/17 08:31 - Medications Medications: Current Medications Acetaminophen (Tylenol 325mg Tab) 650 mg PO Q4 PRN PRN Reason: Pain, Mild (1-3) Last Admin: 07/25/17 09:02 Dose: 650 mg Albuterol/Ipratropium (Duoneb 3 Mg/0.5 Mg (3 Ml) Ud) 3 ml INH RTID [facility] Last Admin: 07/30/17 14:32 Dose: 3 ml Epoetin Jhon (Procrit) 10,000 unit SC TTS [facility] Last Admin: 07/30/17 09:14 Dose: 10,000 unit Lidocaine (Lidoderm) 2 ea TD DAILY [facility] Last Admin: 07/30/17 09:12 Dose: 2 ea Metoprolol Succinate (Toprol Xl) 25 mg PO DAILY [facility] Last Admin: 07/30/17 09:13 Dose: 25 mg Promethazine HCl/Codeine (Phenergan/Codeine Oral Syrup) 5 ml PO Q6 PRN PRN Reason: Cough Last Admin: 07/23/17 08:52 Dose: 5 ml Tamsulosin HCl (Flomax) 0.4 mg PO DAILY [facility] Last Admin: 07/30/17 09:13 Dose: 0.4 mg - Labs Labs: 07/28/17 08:03 07/28/17 08:03 - Constitutional Appears: No Acute Distress - Head Exam Head Exam: NORMAL INSPECTION - Eye Exam Eye Exam: PERRL - ENT Exam ENT Exam: Normal Exam - Neck Exam Neck Exam: Normal Inspection - Respiratory Exam Respiratory Exam: Decreased Breath Sounds (at bases) - Cardiovascular Exam Cardiovascular Exam: REGULAR RHYTHM - GI/Abdominal Exam GI & Abdominal Exam: Soft, Normal Bowel Sounds - Extremities Exam Extremities Exam: Tenderness (L shoulder with decreased ROM, minimal tenderness L hand and R foot.) - Back Exam Back Exam: NORMAL INSPECTION - Neurological Exam Neurological Exam: Alert, Oriented x3 Additional comments: No focal motor sensory deficit, generalized weakness, forgetful at times. 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
[2017-07-30 15:44] LABS: ALKALINE PHOSPHATASE 118 U/L (38-126); ALT/SGPT 34 U/L (21-72); AST/SGOT 29 U/L (17-59); BILIRUBIN,TOTAL 0.5 mg/dl (0.2-1.3); BLOOD UREA NITROGEN 11 mg/dl (9-20); CALCIUM 8.7 mg/dL (8.4-10.2); CARBON DIOXIDE 26 mmol/L (22-30); CHLORIDE 95 mmol/L (98-107); GFR AFRICAN-AMERICAN > 60; GLUCOSE,RANDOM 119 mg/dL (75-110); POTASSIUM 4.1 MMOL/L (3.6-5.0); SODIUM 130 mmol/l (132-148); TOTAL PROTEIN 7.3 G/DL (6.3-8.2)
[2017-07-30 15:49] LABS: ALB/GLOB RATIO 0.8 (1.0-2.1)
[2017-07-31] MEDS: Albuterol-Ipratrop 3 mg / 0.5 (3 ml) UD INH SCH ×2 (07:31→13:14)
[2017-07-31 08:13] VITALS: BP 110/53; PULSE 99; TEMP 97.7; O2SAT 98
[2017-07-31] MEDS: Lidocaine 5% Patch TD SCH (09:03)
[2017-07-31] MEDS: Metoprolol Succinate 25 mg XL Tab PO SCH (09:04)
--- NOTE | 2017-07-31 16:09 | CP.PCM.PN ---
Subjective - Date & Time of Evaluation Date of Evaluation: 07/31/17 Time of Evaluation: 09:15 - Subjective Subjective: F/U Generalized weakness. Pain in L shoulder and generalized weakness improved, walking with PT. Objective - Vital Signs/Intake and Output Vital Signs (last 24 hours): Temp Pulse Resp BP Pulse Ox 97.7 F 99 H 20 110/53 L 98 07/31/17 08:04 07/31/17 09:04 07/31/17 08:04 07/31/17 09:04 07/31/17 08:04 - Medications Medications: Current Medications Acetaminophen (Tylenol 325mg Tab) 650 mg PO Q4 PRN PRN Reason: Pain, Mild (1-3) Last Admin: 07/30/17 23:20 Dose: 650 mg Albuterol/Ipratropium (Duoneb 3 Mg/0.5 Mg (3 Ml) Ud) 3 ml INH RTID [facility] Last Admin: 07/31/17 13:14 Dose: 3 ml Epoetin Jhon (Procrit) 10,000 unit SC TTS [facility] Last Admin: 07/30/17 09:14 Dose: 10,000 unit Lidocaine (Lidoderm) 2 ea TD DAILY [facility] Last Admin: 07/31/17 09:03 Dose: 2 ea Metoprolol Succinate (Toprol Xl) 25 mg PO DAILY [facility] Last Admin: 07/31/17 09:04 Dose: 25 mg Promethazine HCl/Codeine (Phenergan/Codeine Oral Syrup) 5 ml PO Q6 PRN PRN Reason: Cough Last Admin: 07/23/17 08:52 Dose: 5 ml Tamsulosin HCl (Flomax) 0.4 mg PO DAILY [facility] Last Admin: 07/31/17 09:04 Dose: 0.4 mg - Labs Labs: 07/28/17 08:03 07/30/17 15:29 - Constitutional Appears: No Acute Distress - Head Exam Head Exam: NORMAL INSPECTION - Eye Exam Eye Exam: PERRL - ENT Exam ENT Exam: Normal Exam - Neck Exam Neck Exam: Normal Inspection - Respiratory Exam Respiratory Exam: Decreased Breath Sounds (at bases) - Cardiovascular Exam Cardiovascular Exam: REGULAR RHYTHM - GI/Abdominal Exam GI & Abdominal Exam: Soft, Normal Bowel Sounds - Extremities Exam Extremities Exam: Tenderness (L shoulder with decreased ROM,minimal tenderness L hand, minimal tenderness R foot.) - Back Exam Back Exam: NORMAL INSPECTION - Neurological Exam Neurological Exam: Alert, Oriented x3 Additional comments: Forgetful at times, generalized weakness, no focal motor/sensory deficit. 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
== END 2017-07-31 17:00 | disposition home or self-care (01) | DRG 945 ==
LOC: H.TCU 19:05
PROVIDERS: ADMIT Internal Medicine Pulmonary Disease; ATTEND Internal Medicine Pulmonary Disease
PROC: F07Z9FZ Gait Training/Functional Ambulation Treatment using Assistive, Adaptive, Supportive or Protective Equipment (ICD-10-PCS; principal; 2017-07-16)
PROC: F08Z4FZ Home Management Treatment using Assistive, Adaptive, Supportive or Protective Equipment (ICD-10-PCS; 2017-07-16)
PROC: F07K6FZ Therapeutic Exercise Treatment of Musculoskeletal System - Upper Back / Upper Extremity using Assistive, Adaptive, Supportive or Protective Equipment (ICD-10-PCS; 2017-07-17)
DX: R53.1 Weakness (principal); J44.1 Chronic obstructive pulmonary disease with (acute) exacerbation; I50.32 Chronic diastolic (congestive) heart failure; I11.0 Hypertensive heart disease with heart failure; D64.9 Anemia, unspecified; M75.102 Unspecified rotator cuff tear or rupture of left shoulder, not specified as traumatic; M19.012 Primary osteoarthritis, left shoulder; M19.042 Primary osteoarthritis, left hand; E78.5 Hyperlipidemia, unspecified; I25.10 Atherosclerotic heart disease of native coronary artery without angina pectoris; N40.0 Benign prostatic hyperplasia without lower urinary tract symptoms; F41.9 Anxiety disorder, unspecified; Z95.0 Presence of cardiac pacemaker; Z87.891 Personal history of nicotine dependence

== ENCOUNTER 2018-02-10 18:36 | Inpatient (IN) | payer MEDICARE ==
[2018-02-10] MEDS ORDERED: Sodium Chloride 0.9% 500 ML IV STA (18:56)
[2018-02-10 18:57] VITALS: BMI 25.7
--- NOTE | 2018-02-10 19:21 | ED PDOC ---
HPI:STROKE - Time Time: 18:50 - Historian Historian: Spouse - Chief Complaint Chief Complaint: Weakness, other (difficulty speaking) - Onset Date: 02/07/18 - Notes: Notes:: 77 year old male with HTN, CHF, and COPD presents to the ED with weakness and difficulty speaking onset Saturday night. As per , patient has been unable to get up or get out of bed, whenever he tries he falls. She reports he had very little to eat in the last 3 days. Today when he attempted to get out of bed, he fell down, which prompted ED visit. She did not call earlier because she thought her 's condition would improve. Limited HPI due to patient's clinical condition. PMD: Dr. Mueller NIHSS Stroke Scale - Date/Time Evaluation Performed Date Performed: 02/10/18 Time Performed: 18:50 When Was NIHSS Performed: Baseline - How Severe is the Stroke Level of Consciousness: 1=Drowsy LOC to Questions: 0=Both comments correct LOC to commands: 1=Obeys one correctly Best Gaze: 0=Normal Visual: 0=No visual loss Facial: 1=Minor asymmetry Motor Arm - Left: 1=Drift noted before 10 sec Motor Arm - Right: 0=No drift Motor Leg - Left: 1=Drift before 5 sec Motor Leg - Right: 1=Drift before 5 sec Limb Ataxia: 0=Absent Sensory: 0=Normal Best Language: 1=Mild to moderate aphasia Dysarthia: 2=Severe, near unintelligible or worse Extinction & Inattention (Neglect): 0=Normal, no object Score: 9 rTPA Inclusion/Exclusion - Refusal of Treatment Patient Refused Treatment: No - Inclusion Criteria for Altepase Patient is 18 years or Older: Yes The Clinical Diagnosis of Ischemic Stroke That is Causing a Potentially Disabling Neurological Deficit: Yes Time of Onset is Well Established to be Less Than 270 Minute Before Treatment Would Begin: No Risk/Benefit Discussed With Patient/Family Member Present: No - Exclusion Criteria for Altepase Uncontrolled Hypertension at Time of Treatment (Systolic BP above 185 or Diastolic BP above 110 mmHg): No Past Medical History Reviewed: Historical Data, Nursing Documentation, Vital Signs Vital Signs: Last Vital Signs Temp 98.3 F 02/10/18 18:51 Pulse 85 02/10/18 18:51 Resp 18 02/10/18 18:51 BP 111/67 02/10/18 18:51 Pulse Ox 100 06/25/18 18:51 - Medical History PMH: Anxiety, CHF, COPD Denies: Chronic Kidney Disease - Surgical History Surgical History: Pacemaker, Tonsillectomy - Family History Family History: States: Hypertension - Social History Current smoker - smoking cessation education provided: No Ex-Smoker (has not smoked in the last 12 months): No - Home Medications Home Medications: Ambulatory Orders Medication Instructions Recorded Tamsulosin [Flomax] 0.4 mg PO DAILY 07/01/17 Alprazolam [Xanax] 0.5 mg PO Q12 PRN 02/10/18 Aspirin [Ecotrin] 81 mg PO DAILY 02/10/18 Budesonide/Formoterol Fumarate 2 puff IH Q12 02/10/18 [Symbicort 160-4.5 Mcg Inhaler] Carvedilol [Coreg] 12.5 mg PO Q12 02/10/18 Icosapent Ethyl [Vascepa] 2 gm PO Q12 02/10/18 Promethazine HCl/Codeine 10 ml PO Q4 PRN 02/10/18 [Prometh-Codein 6.25-10 mg/5 ml] oxyCODONE/Acetaminophen [Percocet 1 tab PO Q6 PRN 02/10/18 5/325 mg Tab] Atorvastatin [Lipitor] 40 mg PO DAILY #30 tab 02/13/18 Clopidogrel [Plavix] 75 mg PO DAILY tab 02/13/18 - Allergies Allergies/Adverse Reactions: Allergies Allergy/AdvReac Type Severity Reaction Status Date / Time No Known Allergies Allergy Verified 02/10/18 18:39 Review of Systems ROS Statement: Except As Marked, All Systems Reviewed And Found Negative Neurological: Positive for: Weakness, Other (difficulty speaking) Physical Exam - Reviewed Nursing Documentation Reviewed: Yes Vital Signs Reviewed: Yes - Physical Exam Appears: Positive for: Non-toxic, In Acute Distress Head Exam: Positive for: ATRAUMATIC, NORMOCEPHALIC Skin: Positive for: Warm, Dry, Pallor Eye Exam: Positive for: EOMI, PERRL ENT: Positive for: Other (very dry mucous membranes, pasty film in mouth ) Neck: Positive for: Painless ROM, Supple Cardiovascular/Chest: Positive for: Regular Rate, Rhythm. Negative for: Murmur Respiratory: Positive for: Normal Breath Sounds. Negative for: Respiratory Distress Gastrointestinal/Abdominal: Positive for: Soft. Negative for: Tenderness, Mass , Guarding, Rebound Back: Positive for: Normal Inspection. Negative for: Decreased ROM Extremity: Negative for: Deformity Neurologic/Psych: Positive for: Facial Droop (left), Other (confusion, slurred speech, lethargic) - Laboratory Results Result Diagrams: 02/11/18 04:20 02/12/18 04:20 - ECG O2 Sat by Pulse Oximetry: 100 (RA) Pulse Ox Interpretation: Normal - Radiology X-Ray: Interpreted by Al X-Ray Interpretation: No Acute Disease - Critical Care Total Time (In Min): 30 Documented Critical Care: Time excludes all time spent performint seperately billable procedures Medical Decision Making Medical Decision Making: Time: 18:55 Initial Impression: slurred speech and weakness Differential diagnoses include but are not limited to: CVA, ICH, dehydration, rhabdomyolysis, sepsis, and metabolic encephalopathy Initial Plan: --Type and Screen --CT head --EKG --B-type natriuretic peptide --Creatine Phosphokinase --CMP --Magnesium --Phosphorus --Troponin --CBC with differentials --Partial thromboplastin time --Prothrombin Time --CXR --Glucose --NS --Blood culture --Urine culture --IV insertion Time: 19:17 --Lactic acid Time: 20:40 --XR shows no acute abnormalities Time: 20:33 CT Head: FINDINGS: Brain: There is age-related diffuse cerebral and cerebellar volume loss and chronic microvascular ischemic disease. Ventricles: Normal. No ventriculomegaly. Bones/joints: Normal. No acute fracture. Sinuses: There is mild mucosal thickening in the maxillary sinuses. Mastoid air cells: Normal as visualized. No mastoid effusion. Soft tissues: Normal. IMPRESSION: 1. There is age-related diffuse cerebral and cerebellar volume loss and chronic microvascular ischemic disease. 2. No acute intracranial pathology. 3. No CT signs of hemorrhage or acute infarct. MRI brain with diffusion weighted imaging is more accurate than CT for detection of acute infarct. Time: 20 :50 --Case discussed with Dr. Mueller, patient to be admitted to his service. Request Dr. Bach from neurology. Scribe Attestation: Documented by Sherine Shen, acting as a scribe for Nichole Morales MD Provider Scribe Attestation: All medical record entries made by the Scribe were at my direction and personally dictated by me. I have reviewed the chart and agree that the record accurately reflects my personal performance of the history, physical exam, medical decision making, and the department course for this patient. I have also personally directed, reviewed, and agree with the discharge instructions and disposition Disposition - Clinical Impression Clinical Impression: Generalized muscle weakness, Difficulty with speech Counseled Patient/Family Regarding: Studies Performed, Diagnosis - Disposition Disposition Time: 21:00 Condition: GUARDED - Pt Status Changed To: Hospital Disposition Of: Inpatient - Admit Certification Admit to Inpatient:: After my assessment, the patient will require hospitalization for at least two midnights. This is because of the severity of symptoms shown, intensity of services needed, and/or the medical risk in this patient being treated as an outpatient. - POA Present On Arrival: Falls Or Trauma (risk)
[2018-02-10 19:32] LABS: BASO # 0.1 K/uL (0.0-0.2); BASO % 1.2 % (0.0-2.0); EOS # 0.1 K/uL (0.0-0.7); EOS % 2.6 % (0.0-4.0); HEMOGLOBIN 11.5 g/dL (12.0-18.0); LYMPH # 1.4 K/uL (1.0-4.3); MEAN CORPUSCULAR HGB CONC 32.6 g/dL (33.0-37.0); MEAN PLATELET VOLUME 8.3 fl (7.2-11.7); MONO # 0.5 K/uL (0.0-0.8); MONO % 10.1 % (0.0-10.0); NEUT # 3.1 K/uL (1.8-7.0); NEUT % 59.1 % (50.0-75.0); NRBC % 0.2 % (0.0-0.0); RBC 3.83 Mil/uL (4.40-5.90); RED CELL DISTRIBUTION WIDTH 17.2 % (11.5-14.5); WHITE BLOOD COUNT 5.3 K/uL (4.8-10.8)
[2018-02-10 19:51] LABS: INR 2.2 (0.9-1.2); PARTIAL THROMBOPLASTIN TIME 28.7 Seconds (25.6-37.1); PROTHROMBIN TIME 24.3 Seconds (9.8-13.1)
[2018-02-10 19:56] LABS: ALBUMIN 3.5 g/dL (3.5-5.0); ALT/SGPT 435 U/L (21-72); AST/SGOT 274 U/L (17-59); B-TYPE NATRIURETIC PEPTIDE 18900 pg/ml (0-900); BLOOD UREA NITROGEN 18 mg/dl (9-20); CALCIUM 8.8 mg/dL (8.4-10.2); GFR AFRICAN-AMERICAN > 60; GFR NON-AFRICAN AMERICAN > 60
[2018-02-10 20:02] LABS: SQUAMOUS EPITHIAL < 1 /hpf (0-5); URINE BACTERIA RARE (<OCC); URINE BILIRUBIN NEGATIVE (NEGATIVE); URINE BLOOD NEGATIVE (NEGATIVE); URINE CLARITY CLOUDY (Clear); URINE COLOR AMBER (YELLOW); URINE GLUCOSE (UA) NEG (Normal); URINE LEUKOCYTE ESTERASE NEG Leu/uL (Negative); URINE PROTEIN 100 mg/dL (NEGATIVE)
[2018-02-10] MEDS ORDERED: Sodium Chloride 0.9% 100 ML ONE (22:43)
[2018-02-10] MEDS ORDERED: Iodixanol 320 MG/ML 100 ML BOTTLE IV ONE (22:43)
[2018-02-11] MEDS ORDERED: Dextrose 5%/0.45% NS 1,000 ML IV SCH (00:15)
[2018-02-11 05:45] LABS: HEMOGLOBIN 11.2 g/dL (12.0-18.0); MEAN CELL VOLUME 92.3 fl (80.0-94.0); MEAN CORPUSCULAR HEMOGLOBIN 29.8 pg (27.0-31.0); MEAN CORPUSCULAR HGB CONC 32.4 g/dL (33.0-37.0); RBC 3.76 Mil/uL (4.40-5.90); RED CELL DISTRIBUTION WIDTH 17.3 % (11.5-14.5); WHITE BLOOD COUNT 5.1 K/uL (4.8-10.8)
[2018-02-11 06:00] LABS: T4 5.98 ug/dl (5.5-11.0)
[2018-02-11 06:03] LABS: PROTHROMBIN TIME 22.8 Seconds (9.8-13.1)
[2018-02-11 06:06] LABS: LDL CHOLESTEROL 52 mg/dL (0-129)
[2018-02-11 06:08] LABS: ALB/GLOB RATIO 0.9 (1.0-2.1); ALBUMIN 3.2 g/dL (3.5-5.0); ALT/SGPT 350 U/L (21-72); AST/SGOT 166 U/L (17-59); BLOOD UREA NITROGEN 15 mg/dl (9-20); CALCIUM 8.6 mg/dL (8.4-10.2); GFR AFRICAN-AMERICAN > 60; GFR NON-AFRICAN AMERICAN > 60; HDL CHOLESTEROL 14 MG/DL (30-70)
--- NOTE | 2018-02-11 10:24 | CT ---
PROCEDURE: CT HEAD WITHOUT CONTRAST. HISTORY: slurred speech and weakness for 3 days COMPARISON: Comparison made with CT scan brain 07/06/2017. TECHNIQUE: Axial computed tomography images were obtained through the head/brain without intravenous contrast. Radiation dose: Total exam DLP = 1098.73 mGy-cm. This CT exam was performed using one or more of the following dose reduction techniques: Automated exposure control, adjustment of the mA and/or kV according to patient size, and/or use of iterative reconstruction technique. FINDINGS: HEMORRHAGE: No acute parenchymal, subarachnoid or extra-axial hemorrhage. BRAIN: Mild diffuse/confluent chronic periventricular white matter ischemic changes seen extending peripherally into the deep white matter both cerebral hemispheres. No evidence of large acute infarct so far as can be seen. No obvious parenchymal nor extra-axial masses or collections. Scattered subarachnoid and/or of cortical surface calcifications again noted nonspecific. Findings could be posttraumatic or postinflammatory - infectious in origin. 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 Moderate to fairly significant generalized volume loss. Minor vascular calcifications both carotid siphons. VENTRICLES: Unremarkable. No hydrocephalus. CALVARIUM: Re- demonstrated are prominent vascular grooves most pronounced in the right anterior superior parietal region. PARANASAL SINUSES: Unremarkable as visualized. No significant inflammatory changes. MASTOID AIR CELLS: Unremarkable as visualized. No inflammatory changes. OTHER FINDINGS: None. IMPRESSION: No evidence of acute intracranial hemorrhage or large acute infarct. Mild chronic white matter ischemic changes. Moderate 2s fairly significant volume loss. Scattered cortical surface and/or subarachnoid calcifications. Rule out posttraumatic or post infectious/ inflammatory etiology. Prominent vascular grooves seen within the anterior superior parietal calvarium.
--- NOTE | 2018-02-11 10:37 | RAD ---
HISTORY: weakness COMPARISON: Chest radiographs 07/22/2017. FINDINGS: LUNGS: No active pulmonary disease. PLEURA: No significant pleural effusion identified, no pneumothorax apparent. CARDIOVASCULAR: AICD/pacemaker reiterated. No pulmonary vascular congestion. Cardiac size poorly compared. OSSEOUS STRUCTURES: No significant abnormalities. VISUALIZED UPPER ABDOMEN: Normal. OTHER FINDINGS: None. IMPRESSION: No acute infiltrate or pleural effusion bilaterally. No pulmonary vascular congestion. AICD/pacemaker reiterated.
--- NOTE | 2018-02-11 11:07 | CARD ---
APPROVED REPORT EKG Measurement Heart [id number] <Conclusion> Normal sinus rhythm Left bundle branch block Abnormal ECG
--- NOTE | 2018-02-11 13:04 | CT ---
PROCEDURE: CT Angiography of the Brain and Neck. HISTORY: slurred speech and falls COMPARISON: None available. TECHNIQUE: CT angiography of the intracranial and neck arteries was performed. Coronal and sagittal maximum intensity projection reformatted images were generated. Contrast Dose: Visipaque 320, 95 cc Radiation dose:Total exam DLP = 1536.83 mGy-cm. This CT exam was performed using one or more of the following dose reduction techniques: Automated exposure control, adjustment of the mA and/or kV according to patient size, and/or use of iterative reconstruction technique. FINDINGS: INTERNAL CEREBRAL ARTERIES: The skull base, petrous, and cavernous segments are bilaterally widely patent. Moderate right and moderate to severe left atherosclerotic stenosis are identified with symmetric bilateral MCA blood flow appreciated. The anterior communicating artery appears patent. However, hypoplastic originating bilateral posterior communicating arteries are evident as well. ANTERIOR CEREBRAL ARTERIES: Unremarkable. A1 and A2 segments are widely patent. Smaller distal branches unremarkable, as visualized. MIDDLE CEREBRAL ARTERIES: Unremarkable. M1 and M2 segments are widely patent. Perisylvian branches grossly symmetric. POSTERIOR CIRCULATION: Basilar Artery: Unremarkable. Distal Vertebral Arteries: Left dominant vertebrobasilar circulation. Posterior Cerebral Arteries: Unremarkable. Posterior Inferior Cerebellar Arteries: Unremarkable. NECK CTA: Common Carotid arteries: The bilateral common carotid appear widely patent from their origins to their bifurcations with no significant stenosis appreciated. No evidence to suggest common carotid artery dissection. Internal Carotid arteries: No significant stenosis is appreciated throughout the cervical internal carotid artery segments bilaterally and there is no evidence of dissection either. External Carotid arteries: Appear unremarkable bilaterally. Vertebral arteries: The bilateral vertebral arteries appear normal in caliber from their origins to their junction with the basilar artery. No significant stenosis or definite pattern of dissection. ANEURYSM/ VASCULAR MALFORMATIONS: None. OTHER FINDINGS: Left subclavian pacemaker leads entering into the superior vena cava at the thoracic inlet. IMPRESSION: 1. 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 Moderate stenosis right supraclinoid ICA. 2. Patent anterior communicating artery. Hypoplastic or a genetic bilateral posterior communicating arteries. 3. No significant common or internal carotid artery stenosis in the neck. Patent bilateral vertebral arteries with left dominant vertebrobasilar circulation. Concordant preliminary report from [facility], 02/11/2018.
--- NOTE | 2018-02-11 13:54 | CARD ---
APPROVED REPORT EXAM: Two-dimensional and M-mode echocardiogram with Doppler and color Doppler. Other Information Quality : Technically LimitedRhythm : INDICATION Chest Pain 2D DIMENSIONS IVSd1.18 (0.7-1.1cm)LVDd3.26 (3.9-5.9cm) LVOT Diameter1.92 (1.8-2.4cm)PWd1.14 (0.7-1.1cm) IVSs1.39 (0.8-1.2cm)LVDs3.96 (2.5-4.0cm) FS (%) 21.5 %PWs1.32 (0.8-1.2cm) M-Mode DIMENSIONS Left Atrium (MM)3.88 (2.5-4.0cm)Aortic Root4.04 (2.2-3.7cm) Aortic Cusp Exc.1.07 (1.5-2.0cm) Mitral Valve MV E Ewksisgl00.1cm/sMV E Peak Gr.64mmHgMV DECEL AMWL884by MV A Fcaxmwgu29.7cm/sMV QIY01xsN/A ratio1.5 MVA (PHT)3.67cm2 TDI E/Lateral E'0.0E/Medial E'0.0 Pulmonary Valve PV Peak Xlefgejz99.7cm/s Tricuspid Valve TR Peak Ynfduymc980iw/sRAP MFOIWRJZ08tsWeGP Peak Gr.35mmHg SWTY38nzHl LEFT VENTRICLE The left ventricle is normal size. The systolic function is moderately impaired. The Ejection Fraction is 20-25%. There is global hypokinesis of the left ventricle. The left ventricular diastolic function is normal. RIGHT VENTRICLE The right ventricle is normal size. The right ventricular systolic function is normal. ATRIA The left atrium size is normal. The right atrium size is normal. AORTIC VALVE The aortic valve is normal in structure. No aortic regurgitation is present. There is no aortic valvular stenosis. MITRAL VALVE The mitral valve is normal in structure. There is no mitral valve stenosis. Mitral regurgitation is mild. TRICUSPID VALVE The tricuspid valve is normal in structure. There is mild to moderate tricuspid regurgitation. Right ventricular systolic pressure is estimated at 45 mmHg. There is moderate pulmonary hypertension. PULMONIC VALVE The pulmonary valve is normal in structure. There is no pulmonic valvular regurgitation. GREAT VESSELS The aortic root is normal in size. The IVC is normal in size and collapses >50% with inspiration. PERICARDIAL EFFUSION The pericardium appears normal. <Conclusion> The left ventricle is normal size. The systolic function is moderately impaired. The Ejection Fraction is 20-25%. There is global hypokinesis of the left ventricle. Mitral regurgitation is mild. There is mild to moderate tricuspid regurgitation. Right ventricular systolic pressure is estimated at 45 mmHg. There is moderate pulmonary hypertension.
--- NOTE | 2018-02-11 14:20 | CP.PCM.HP ---
History of Present Illness - History of Present Illness History of Present Illness: CC: Weaknesses. 77 y/o M, Hx of COPD, CHF, PPM, brought to ER [facility]ILHERM[facility]onsuel[facility] on 02/07/18 to be evaluated for weaknesses, noticed by night [employer], associated to slurred speech, confusion and forgetful without improvements. As per , Pt unable to get out of bed with continues falls on DOA. Worsening symptoms: Not eating well for the past 3 days, dehydration. Aggravated factor: Unable to cooperate with medical Hx. No: CP, palpitations, SOB, cough, n/v/d, abdominal pain, sick contact, recent travel out of [facility]. CXR No acute infiltrate or pleural effusion b/l. EKG: Normal sinus rhythm, L BBB. Present on Admission - Present on Admission Any Indicators Present on Admission: No Review of Systems - Review of Systems Systems not reviewed;Unavailable: Acuity of Condition Past Patient History - Past Medical History & Family History Past Medical History?: Yes Pertinent Family History: Unknown - Past Social History Smoking Status: Former Smoker Alcohol: None Drugs: Denies Home Situation {Lives}: With Family - CARDIAC Hx Cardiac Disorders: Yes Hx Congestive Heart Failure: Yes Hx Hypertension: Yes Hx Pacemaker: Yes Other/Comment: Dyslipidemia - PULMONARY Hx Respiratory Disorders: Yes Hx Chronic Obstructive Pulmonary Disease (COPD): Yes - NEUROLOGICAL Hx Neurological Disorder: No - HEENT Hx HEENT Problems: No - RENAL Hx Chronic Kidney Disease: No - ENDOCRINE/METABOLIC Hx Endocrine Disorders: No - HEMATOLOGICAL/ONCOLOGICAL Hx Blood Disorders: No - INTEGUMENTARY Hx Dermatological Problems: No - MUSCULOSKELETAL/RHEUMATOLOGICAL Hx Musculoskeletal Disorders: Yes Hx Back Pain: Yes Hx Falls: Yes Hx Osteoarthritis: Yes - GASTROINTESTINAL Hx Gastrointestinal Disorders: No - GENITOURINARY/GYNECOLOGICAL Hx Genitourinary Disorders: Yes Hx Prostate Problems: Yes - PSYCHIATRIC Hx Psychophysiologic Disorder: Yes Hx Anxiety: Yes Hx Substance Use: No - SURGICAL HISTORY Hx Surgeries: Yes Hx Herniorrhaphy: Yes Hx Joint Replacement: Yes (R L TKR) Hx Tonsillectomy: Yes Other/Comment: PACEMAKER - ANESTHESIA Hx Anesthesia: Yes Hx Anesthesia Reactions: No Hx Malignant Hyperthermia: No Meds Allergies/Adverse Reactions: Allergies Allergy/AdvReac Type Severity Reaction Status Date / Time No Known Allergies Allergy Verified 02/10/18 18:39 Physical Exam - Constitutional Appears: Confused, Chronically Ill - Head Exam Head Exam: NORMAL INSPECTION - Eye Exam Eye Exam: PERRL - ENT Exam ENT Exam: Mucous Membranes Dry - Neck Exam Neck exam: Positive for: Normal Inspection - Respiratory Exam Respiratory Exam: Decreased Breath Sounds - Cardiovascular Exam Cardiovascular Exam: REGULAR RHYTHM Additional comments: PPM - GI/Abdominal Exam GI & Abdominal Exam: Normal Bowel Sounds, Soft - Extremities Exam Additional comments: R-L TKR - Back Exam Back exam: NORMAL INSPECTION - Neurological Exam Additional comments: awake, slurred speech, confused, generalized weakness, - Psychiatric Exam Additional comments: Lethargic - Skin Skin Exam: Warm Results - Vital Signs Recent Vital Signs: Last Vital Signs Temp 97.5 F L 02/11/18 07:56 Pulse 84 02/11/18 07:56 Resp 18 02/11/18 07:56 BP 92/64 L 02/11/18 07:56 Pulse Ox 100 02/11/18 07:56 reviewed Dora - Labs Result Diagrams: 02/11/18 04:20 02/12/18 04:20 Labs: Laboratory Results - last 24 hr 02/10/18 02/10/18 02/10/18 18:49 19:00 19:00 WBC 5.3 RBC 3.83 L Hgb 11.5 L Hct 35.2 MCV 92.0 D MCH 30.0 MCHC 32.6 L RDW 17.2 H Plt Count 216 D MPV 8.3 Neut % (Auto) 59.1 Lymph % (Auto) 27.0 Wise % (Auto) 10.1 H Eos % (Auto) 2.6 Baso % (Auto) 1.2 Neut # (Auto) 3.1 Lymph # (Auto) 1.4 Wise # (Auto) 0.5 Eos # (Auto) 0.1 Baso # (Auto) 0.1 PT INR APTT Sodium 134 Potassium 4.7 Chloride 102 Carbon Dioxide 21 L Anion Gap 16 BUN 18 Creatinine 0.7 L Est GFR ( Amer) > 60 Est GFR (Non-Af Amer) > 60 POC Glucose (mg/dL) 94 Random Glucose 101 Lactic Acid Calcium 8.8 Phosphorus 2.6 Magnesium 2.3 Total Bilirubin 1.3 AST 274 H D ALT 435 H D Alkaline Phosphatase 95 Total Creatine Kinase 55 Troponin I 0.0170 NT-Pro-B Natriuret Pep 84434 H Total Protein 7.0 Albumin 3.5 Globulin 3.5 Albumin/Globulin Ratio 1.0 Triglycerides Cholesterol LDL Cholesterol Direct HDL Cholesterol Thyroxine (T4) TSH 3rd Generation Urine Color Urine Clarity Urine pH Ur Specific Hailey Urine Protein Urine Glucose (UA) Urine Ketones Urine Blood Urine Nitrate Urine Bilirubin Urine Urobilinogen Ur Leukocyte Esterase Urine RBC (Auto) Urine Microscopic WBC Ur Squamous Epith Cells Urine Bacteria Blood Type Antibody Screen BBK History Checked 02/10/18 02/10/18 02/10/18 19:00 19:25 19:30 WBC RBC Hgb Hct MCV MCH MCHC RDW Plt Count MPV Neut % (Auto) Lymph % (Auto) Wise % (Auto) Eos % (Auto) Baso % (Auto) Neut # (Auto) Lymph # (Auto) Wise # (Auto) Eos # (Auto) Baso # (Auto) PT 24.3 H INR 2.2 H APTT 28.7 Sodium Potassium Chloride Carbon Dioxide Anion Gap BUN Creatinine Est GFR ( Amer) Est GFR (Non-Af Amer) POC Glucose (mg/dL) Random Glucose Lactic Acid 1.4 Calcium Phosphorus Magnesium Total Bilirubin AST ALT Alkaline Phosphatase Total Creatine Kinase Troponin I NT-Pro-B Natriuret Pep Total Protein Albumin Globulin Albumin/Globulin Ratio Triglycerides Cholesterol LDL Cholesterol Direct HDL Cholesterol Thyroxine (T4) TSH 3rd Generation Urine Color Urine Clarity Urine pH Ur Specific Hailey Urine Protein Urine Glucose (UA) Urine Ketones Urine Blood Urine Nitrate Urine Bilirubin Urine Urobilinogen Ur Leukocyte Esterase Urine RBC (Auto) Urine Microscopic WBC Ur Squamous Epith Cells Urine Bacteria Blood Type O POSITIVE Antibody Screen Negative BBK History Checked Patient has bt 02/10/18 02/11/18 02/11/18 19:52 04:20 04:20 WBC 5.1 RBC 3.76 L Hgb 11.2 L Hct 34.7 L MCV 92.3 MCH 29.8 MCHC 32.4 L RDW 17.3 H Plt Count 206 MPV Neut % (Auto) Lymph % (Auto) Wise % (Auto) Eos % (Auto) Baso % (Auto) Neut # (Auto) Lymph # (Auto) Wise # (Auto) Eos # (Auto) Baso # (Auto) PT INR APTT Sodium 136 Potassium 4.5 Chloride 105 Carbon Dioxide 21 L Anion Gap 15 BUN 15 Creatinine 0.6 L Est GFR ( Amer) > 60 Est GFR (Non-Af Amer) > 60 POC Glucose (mg/dL) Random Glucose 113 H Lactic Acid Calcium 8.6 Phosphorus Magnesium Total Bilirubin 1.1 AST 166 H D ALT 350 H Alkaline Phosphatase 86 Total Creatine Kinase Troponin I 0.0120 NT-Pro-B Natriuret Pep Total Protein 6.5 Albumin 3.2 L Globulin 3.4 Albumin/Globulin Ratio 0.9 L Triglycerides 74 Cholesterol 90 LDL Cholesterol Direct 52 HDL Cholesterol 14 L Thyroxine (T4) 5.98 TSH 3rd Generation 0.97 Urine Color Mary Urine Clarity Cloudy Urine pH 6.0 Ur Specific Hailey 1.026 Urine Protein 100 Urine Glucose (UA) Neg Urine Ketones Negative Urine Blood Negative Urine Nitrate Negative Urine Bilirubin Negative Urine Urobilinogen 2.0 Ur Leukocyte Esterase Neg Urine RBC (Auto) 6 H Urine Microscopic WBC 1 Ur Squamous Epith Cells < 1 Urine Bacteria Rare Blood Type Antibody Screen BBK History Checked 02/11/18 02/11/18 04:20 11:37 WBC RBC Hgb Hct MCV MCH MCHC RDW Plt Count MPV Neut % (Auto) Lymph % (Auto) Wise % (Auto) Eos % (Auto) Baso % (Auto) Neut # (Auto) Lymph # (Auto) Wise # (Auto) Eos # (Auto) Baso # (Auto) PT 22.8 H INR 2.0 H APTT 30.0 Sodium Potassium Chloride Carbon Dioxide Anion Gap BUN Creatinine Est GFR ( Amer) Est GFR (Non-Af Amer) POC Glucose (mg/dL) Random Glucose Lactic Acid Calcium Phosphorus Magnesium Total Bilirubin AST ALT Alkaline Phosphatase Total Creatine Kinase Troponin I < 0.0120 NT-Pro-B Natriuret Pep Total Protein Albumin Globulin Albumin/Globulin Ratio Triglycerides Cholesterol LDL Cholesterol Direct HDL Cholesterol Thyroxine (T4) TSH 3rd Generation Urine Color Urine Clarity Urine pH Ur Specific Hailey Urine Protein Urine Glucose (UA) Urine Ketones Urine Blood Urine Nitrate Urine Bilirubin Urine Urobilinogen Ur Leukocyte Esterase Urine RBC (Auto) Urine Microscopic WBC Ur Squamous Epith Cells Urine Bacteria Blood Type Antibody Screen BBK History Checked reviewed J.P. - EKG Data EKG comments: reviewed J.P. - Imaging and Cardiology Chest x-ray Status: Report reviewed by me (Dora) Assessment & Plan (1) Generalized weakness Status: Acute Priority: High (2) Difficulty with speech Status: Acute Priority: High (3) History of permanent cardiac pacemaker placement Status: Resolved Priority: Medium (4) CHF (congestive heart failure) Status: Chronic - Assessment and Plan (Free Text) Plan: Echo, Head/Neck CTA, Carotid/Vertebral U-S, Blood C-S, U C-S, continue with lovenox, Plavix, ASA, Duoneb, PT, OT eval, Cardiology and Neuro consult. - Date & Time Date: 02/11/18 Time: 10:40
--- NOTE | 2018-02-11 15:03 | CP.PCM.CON ---
History of Present Illness - History of Present Illness History of Present Illness: Mr. Scott is a 77-year-old man with a past medical history of HTN, CHF, and COPD presents to the ED with weakness and difficulty speaking that started last Saturday night. The patient has also been having more difficulty with rising out of bed and some right side weakness. He presented to the ED yesterday, and CT scan of the head was done. It did not show any acute findings. 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 He was hydrated with NS. Today, he seems to be moving the right side better, but his speech is still not back to baseline. Past Patient History - Past Medical History & Family History Past Medical History?: Yes - Past Social History Smoking Status: Former Smoker - CARDIAC Hx Cardiac Disorders: Yes Hx Congestive Heart Failure: Yes Hx Hypertension: Yes Hx Pacemaker: Yes - PULMONARY Hx Respiratory Disorders: Yes Hx Chronic Obstructive Pulmonary Disease (COPD): Yes - NEUROLOGICAL Hx Neurological Disorder: No - HEENT Hx HEENT Problems: No - RENAL Hx Chronic Kidney Disease: No - ENDOCRINE/METABOLIC Hx Endocrine Disorders: No - HEMATOLOGICAL/ONCOLOGICAL Hx Blood Disorders: No - INTEGUMENTARY Hx Dermatological Problems: No - MUSCULOSKELETAL/RHEUMATOLOGICAL Hx Musculoskeletal Disorders: Yes Hx Back Pain: Yes Hx Falls: Yes Hx Osteoarthritis: Yes - GASTROINTESTINAL Hx Gastrointestinal Disorders: No - GENITOURINARY/GYNECOLOGICAL Hx Genitourinary Disorders: Yes Hx Prostate Problems: Yes - PSYCHIATRIC Hx Psychophysiologic Disorder: Yes Hx Anxiety: Yes Hx Substance Use: No - SURGICAL HISTORY Hx Surgeries: Yes Hx Herniorrhaphy: Yes Hx Tonsillectomy: Yes Other/Comment: PACEMAKER - ANESTHESIA Hx Anesthesia: Yes Hx Anesthesia Reactions: No Hx Malignant Hyperthermia: No Meds Allergies/Adverse Reactions: Allergies Allergy/AdvReac Type Severity Reaction Status Date / Time No Known Allergies Allergy Verified 02/10/18 18:39 - Medications Medications: Current Medications Albuterol/Ipratropium (Duoneb 3 Mg/0.5 Mg (3 Ml) Ud) 3 ml INH RTID [facility] Aspirin (Aspirin) 325 mg PO DAILY [facility] Enoxaparin Sodium (Lovenox) 40 mg SC DAILY [facility] PRN Reason: Protocol Physical Exam - Neurological Exam Neurological exam: Alert, CN II-XII Intact, Oriented x3, Reflexes Normal Additional comments: CN 2-12 intact. No facial asymmetry noted. EOM intact. Dysarthric speech. Generalized weakness with R>L. Sits up unassisted. NIHSS = 2 Results - Vital Signs Recent Vital Signs: Last Vital Signs Temp 97.5 F L 02/11/18 07:56 Pulse 84 02/11/18 07:56 Resp 18 02/11/18 07:56 BP 92/64 L 02/11/18 07:56 Pulse Ox 100 02/11/18 07:56 - Labs Result Diagrams: 02/11/18 04:20 02/11/18 04:20 Labs: Laboratory Results - last 24 hr 02/10/18 02/10/18 02/10/18 18:49 19:00 19:00 WBC 5.3 RBC 3.83 L Hgb 11.5 L Hct 35.2 MCV 92.0 D MCH 30.0 MCHC 32.6 L RDW 17.2 H Plt Count 216 D MPV 8.3 Neut % (Auto) 59.1 Lymph % (Auto) 27.0 [place] % (Auto) 10.1 H Eos % (Auto) 2.6 Baso % (Auto) 1.2 Neut # (Auto) 3.1 Lymph # (Auto) 1.4 [place] # (Auto) 0.5 Eos # (Auto) 0.1 Baso # (Auto) 0.1 PT INR APTT Sodium 134 Potassium 4.7 Chloride 102 Carbon Dioxide 21 L Anion Gap 16 BUN 18 Creatinine 0.7 L Est GFR ( Amer) > 60 Est GFR (Non-Af Amer) > 60 POC Glucose (mg/dL) 94 Random Glucose 101 Lactic Acid Calcium 8.8 Phosphorus 2.6 Magnesium 2.3 Total Bilirubin 1.3 AST 274 H D ALT 435 H D Alkaline Phosphatase 95 Total Creatine Kinase 55 Troponin I 0.0170 NT-Pro-B Natriuret Pep 19904 H Total Protein 7.0 Albumin 3.5 Globulin 3.5 Albumin/Globulin Ratio 1.0 Triglycerides Cholesterol LDL Cholesterol Direct HDL Cholesterol Thyroxine (T4) TSH 3rd Generation Urine Color Urine Clarity Urine pH Ur Specific [place] Urine Protein Urine Glucose (UA) Urine Ketones Urine Blood Urine Nitrate Urine Bilirubin Urine Urobilinogen Ur Leukocyte Esterase Urine RBC (Auto) Urine Microscopic WBC Ur Squamous Epith Cells Urine Bacteria Blood Type Antibody Screen BBK History Checked 02/10/18 02/10/18 02/10/18 19:00 19:25 19:30 WBC RBC Hgb Hct MCV MCH MCHC RDW Plt Count MPV Neut % (Auto) Lymph % (Auto) [place] % (Auto) Eos % (Auto) Baso % (Auto) Neut # (Auto) Lymph # (Auto) [place] # (Auto) Eos # (Auto) Baso # (Auto) PT 24.3 H INR 2.2 H APTT 28.7 Sodium Potassium Chloride Carbon Dioxide Anion Gap BUN Creatinine Est GFR ( Amer) Est GFR (Non-Af Amer) POC Glucose (mg/dL) Random Glucose Lactic Acid 1.4 Calcium Phosphorus Magnesium Total Bilirubin AST ALT Alkaline Phosphatase Total Creatine Kinase Troponin I NT-Pro-B Natriuret Pep Total Protein Albumin Globulin Albumin/Globulin Ratio Triglycerides Cholesterol LDL Cholesterol Direct HDL Cholesterol Thyroxine (T4) TSH 3rd Generation Urine Color Urine Clarity Urine pH Ur Specific [place] Urine Protein Urine Glucose (UA) Urine Ketones Urine Blood Urine Nitrate Urine Bilirubin Urine Urobilinogen Ur Leukocyte Esterase Urine RBC (Auto) Urine Microscopic WBC Ur Squamous Epith Cells Urine Bacteria Blood Type O POSITIVE Antibody Screen Negative BBK History Checked Patient has bt 02/10/18 02/11/18 02/11/18 19:52 04:20 04:20 WBC 5.1 RBC 3.76 L Hgb 11.2 L Hct 34.7 L MCV 92.3 MCH 29.8 MCHC 32.4 L RDW 17.3 H Plt Count 206 MPV Neut % (Auto) Lymph % (Auto) [place] % (Auto) Eos % (Auto) Baso % (Auto) Neut # (Auto) Lymph # (Auto) [place] # (Auto) Eos # (Auto) Baso # (Auto) PT INR APTT Sodium 136 Potassium 4.5 Chloride 105 Carbon Dioxide 21 L Anion Gap 15 BUN 15 Creatinine 0.6 L Est GFR ( Amer) > 60 Est GFR (Non-Af Amer) > 60 POC Glucose (mg/dL) Random Glucose 113 H Lactic Acid Calcium 8.6 Phosphorus Magnesium Total Bilirubin 1.1 AST 166 H D ALT 350 H Alkaline Phosphatase 86 Total Creatine Kinase Troponin I 0.0120 NT-Pro-B Natriuret Pep Total Protein 6.5 Albumin 3.2 L Globulin 3.4 Albumin/Globulin Ratio 0.9 L Triglycerides 74 Cholesterol 90 LDL Cholesterol Direct 52 HDL Cholesterol 14 L Thyroxine (T4) 5.98 TSH 3rd Generation 0.97 Urine Color Mary Urine Clarity Cloudy Urine pH 6.0 Ur Specific [place] 1.026 Urine Protein 100 Urine Glucose (UA) Neg Urine Ketones Negative Urine Blood Negative Urine Nitrate Negative Urine Bilirubin Negative Urine Urobilinogen 2.0 Ur Leukocyte Esterase Neg Urine RBC (Auto) 6 H Urine Microscopic WBC 1 Ur Squamous Epith Cells < 1 Urine Bacteria Rare Blood Type Antibody Screen BBK History Checked 02/11/18 02/11/18 04:20 11:37 WBC RBC Hgb Hct MCV MCH MCHC RDW Plt Count MPV Neut % (Auto) Lymph % (Auto) [place] % (Auto) Eos % (Auto) Baso % (Auto) Neut # (Auto) Lymph # (Auto) [place] # (Auto) Eos # (Auto) Baso # (Auto) PT 22.8 H INR 2.0 H APTT 30.0 Sodium Potassium Chloride Carbon Dioxide Anion Gap BUN Creatinine Est GFR ( Amer) Est GFR (Non-Af Amer) POC Glucose (mg/dL) Random Glucose Lactic Acid Calcium Phosphorus Magnesium Total Bilirubin AST ALT Alkaline Phosphatase Total Creatine Kinase Troponin I < 0.0120 NT-Pro-B Natriuret Pep Total Protein Albumin Globulin Albumin/Globulin Ratio Triglycerides Cholesterol LDL Cholesterol Direct HDL Cholesterol Thyroxine (T4) TSH 3rd Generation Urine Color Urine Clarity Urine pH Ur Specific [place] Urine Protein Urine Glucose (UA) Urine Ketones Urine Blood Urine Nitrate Urine Bilirubin Urine Urobilinogen Ur Leukocyte Esterase Urine RBC (Auto) Urine Microscopic WBC Ur Squamous Epith Cells Urine Bacteria Blood Type Antibody Screen BBK History Checked Assessment & Plan (1) Carotid stenosis Assessment and Plan: Will consult with neurointerventional to determine if the patient is a good candidate for stenting. It appears that he did not eat or drink much for several days and was dehydrated. With the significant stenosis, he may have had hypoperfusion and was symptomatic with speech difficulty and right side weakness. This seems to be improving now. However, I will also recommend dual antiplatelet therapy with aspirin and Plavix as well as statin. Status: Acute (2) Difficulty with speech Assessment and Plan: Likely due to hypoperfusion. However, we will continue with PT/OT and ST. He is not able to have MRI due to pacemaker. We will follow up on labs, continue fluids and determine if he is a candidate for LICA stenting. Thank you. Status: Acute
[2018-02-11] MEDS: Albuterol-Ipratrop 3 mg / 0.5 (3 ml) UD INH SCH (19:29)
[2018-02-12 06:24] LABS: ALB/GLOB RATIO 0.9 (1.0-2.1); ALBUMIN 3.1 g/dL (3.5-5.0); ALT/SGPT 259 U/L (21-72); AST/SGOT 96 U/L (17-59); BLOOD UREA NITROGEN 12 mg/dl (9-20); CALCIUM 8.5 mg/dL (8.4-10.2); GFR AFRICAN-AMERICAN > 60; GFR NON-AFRICAN AMERICAN > 60
--- NOTE | 2018-02-12 06:28 | CP.PCM.CON ---
History of Present Illness - History of Present Illness History of Present Illness: Consultation for evaluation of CHF / slurred speech / carotid stenosis HPI: 77 year old male known to me from 07/05 with hx of mild CHF EF 45% , moderate 2 vessel CAD presenting with slurred speech and decreased PO intake x 3days. Noted to have moderate to severe left ICA and moderate right ICA stenosis. Review of Systems - Review of Systems Systems not reviewed;Unavailable: Acuity of Condition - Constitutional Constitutional: As Per HPI - EENT Eyes: As Per HPI Ears: As Per HPI Nose/Mouth/Throat: As Per HPI - Cardiovascular Cardiovascular: As Per HPI - Respiratory Respiratory: As Per HPI - Gastrointestinal Gastrointestinal: As Per HPI - Genitourinary Genitourinary: As Per HPI - Reproductive: Male Reproductive:Male: As Per HPI - Musculoskeletal Musculoskeletal: As Per HPI - Integumentary Integumentary: As Per HPI - Neurological Neurological: As Per HPI - Psychiatric Psychiatric: As Per HPI - Endocrine Endocrine: As Per HPI - Hematologic/Lymphatic Hematologic: As Per HPI Past Patient History - Past Medical History & Family History Past Medical History?: Yes - Past Social History Smoking Status: Former Smoker Alcohol: None Drugs: Denies Home Situation {Lives}: With Family - CARDIAC Hx Cardiac Disorders: Yes Hx Congestive Heart Failure: Yes Hx Hypertension: Yes Hx Pacemaker: Yes Other/Comment: Dyslipidemia - PULMONARY Hx Respiratory Disorders: Yes Hx Chronic Obstructive Pulmonary Disease (COPD): Yes - NEUROLOGICAL Hx Neurological Disorder: No - HEENT Hx HEENT Problems: No - RENAL Hx Chronic Kidney Disease: No - ENDOCRINE/METABOLIC Hx Endocrine Disorders: No - HEMATOLOGICAL/ONCOLOGICAL Hx Blood Disorders: No - INTEGUMENTARY Hx Dermatological Problems: No - MUSCULOSKELETAL/RHEUMATOLOGICAL Hx Musculoskeletal Disorders: Yes Hx Back Pain: Yes Hx Falls: Yes Hx Osteoarthritis: Yes - GASTROINTESTINAL Hx Gastrointestinal Disorders: No - GENITOURINARY/GYNECOLOGICAL Hx Genitourinary Disorders: Yes Hx Prostate Problems: Yes - PSYCHIATRIC Hx Psychophysiologic Disorder: Yes Hx Anxiety: Yes Hx Substance Use: No - SURGICAL HISTORY Hx Surgeries: Yes Hx Herniorrhaphy: Yes Hx Joint Replacement: Yes (R L TKR) Hx Tonsillectomy: Yes Other/Comment: PACEMAKER - ANESTHESIA Hx Anesthesia: Yes Hx Anesthesia Reactions: No Hx Malignant Hyperthermia: No Meds Allergies/Adverse Reactions: Allergies Allergy/AdvReac Type Severity Reaction Status Date / Time No Known Allergies Allergy Verified 02/10/18 18:39 - Medications Medications: Current Medications Albuterol/Ipratropium (Duoneb 3 Mg/0.5 Mg (3 Ml) Ud) 3 ml INH RTID [facility] Last Admin: 02/11/18 19:29 Dose: 3 ml Aspirin (Aspirin Chewable) 81 mg PO DAILY [facility] Clopidogrel Bisulfate (Plavix) 75 mg PO DAILY [facility] Last Admin: 02/11/18 17:38 Dose: 75 mg Enoxaparin Sodium (Lovenox) 40 mg SC DAILY [facility] PRN Reason: Protocol Physical Exam - Constitutional Appears: Well - Head Exam Head Exam: ATRAUMATIC, NORMAL INSPECTION, NORMOCEPHALIC - Eye Exam Eye Exam: EOMI, Normal appearance, PERRL Pupil Exam: NORMAL ACCOMODATION, PERRL - ENT Exam ENT Exam: Mucous Membranes Moist, Normal Exam - Neck Exam Neck exam: Positive for: Normal Inspection - Respiratory Exam Respiratory Exam: Clear to Auscultation Bilateral, NORMAL BREATHING PATTERN - Cardiovascular Exam Cardiovascular Exam: REGULAR RHYTHM, +S1, +S2, Systolic Murmur - GI/Abdominal Exam GI & Abdominal Exam: Normal Bowel Sounds, Soft. absent: Tenderness - Extremities Exam Extremities exam: Positive for: normal inspection - Back Exam Back exam: NORMAL INSPECTION - Neurological Exam Neurological exam: Alert, CN II-XII Intact, Oriented x3, Reflexes Normal - Psychiatric Exam Psychiatric exam: Normal Affect, Normal Mood - Skin Skin Exam: Dry, Intact, Normal Color, Warm Results - Vital Signs Recent Vital Signs: Last Vital Signs Temp 97.6 F 02/12/18 04:49 Pulse 81 02/12/18 04:49 Resp 18 02/12/18 04:49 BP 99/63 L 02/12/18 04:49 Pulse Ox 100 02/12/18 04:49 - Labs Result Diagrams: 02/11/18 04:20 02/12/18 04:20 Labs: Laboratory Results - last 24 hr 02/11/18 02/12/18 11:37 04:20 Sodium 135 Potassium 4.4 Chloride 106 Carbon Dioxide 17 L Anion Gap 16 BUN 12 Creatinine 0.6 L Est GFR ( Amer) > 60 Est GFR (Non-Af Amer) > 60 Random Glucose 80 Calcium 8.5 Total Bilirubin 1.1 AST 96 H D ALT 259 H D Alkaline Phosphatase 80 Troponin I < 0.0120 Total Protein 6.5 Albumin 3.1 L Globulin 3.4 Albumin/Globulin Ratio 0.9 L Assessment & Plan (1) Carotid stenosis Status: Acute (2) Difficulty with speech Status: Acute Priority: High (3) CHF (congestive heart failure) Status: Chronic (4) Altered mental status Status: Acute (5) Generalized weakness Status: Acute Priority: High (6) CAD (coronary artery disease) Status: Chronic (7) History of permanent cardiac pacemaker placement Status: Resolved Priority: Medium
[2018-02-12] MEDS: Albuterol-Ipratrop 3 mg / 0.5 (3 ml) UD INH SCH ×3 (07:22→19:01)
[2018-02-12] MEDS: Omega-3-Acid Ethyl Esters 1 GM Cap PO SCH ×2 (09:00→21:12)
[2018-02-12] MEDS: Enoxaparin 40 mg Syringe SC SCH (09:27)
--- NOTE | 2018-02-12 09:29 | CP.PCM.PN ---
Subjective - Date & Time of Evaluation Date of Evaluation: 02/12/18 Time of Evaluation: : - Subjective Subjective: Mr. Scott was seen and examined at the bedside. He is alert, oriented, but with dysarthria. He denies any headache, dizziness, lightheadedness, nausea, or vomiting. He is able to follow commands and feed himself with minimal assistance. There was no untoward events overnight. Objective - Vital Signs/Intake and Output Vital Signs (last 24 hours): Temp Pulse Resp BP Pulse Ox 98.6 F 86 20 103/68 98 02/12/18 08:00 02/12/18 08:00 02/12/18 08:00 02/12/18 08:00 02/12/18 08:00 - Medications Medications: Current Medications Albuterol/Ipratropium (Duoneb 3 Mg/0.5 Mg (3 Ml) Ud) 3 ml INH RTID [facility] Last Admin: 02/12/18 07:22 Dose: 3 ml Aspirin (Aspirin Chewable) 81 mg PO DAILY [facility] Carvedilol (Coreg) 12.5 mg PO Q12 [facility] Clopidogrel Bisulfate (Plavix) 75 mg PO DAILY [facility] Last Admin: 02/11/18 17:38 Dose: 75 mg Enoxaparin Sodium (Lovenox) 40 mg SC DAILY [facility] PRN Reason: Protocol [id number] Ethyl Esters (Lovaza) 2 gm PO Q12 [facility] Tamsulosin HCl (Flomax) 0.4 mg PO DAILY [facility] - Labs Labs: 02/11/18 04:20 02/12/18 04:20 PT 22.8 Seconds (9.8-13.1) H 02/11/18 04:20 INR 2.0 (0.9-1.2) H 02/11/18 04:20 APTT 30.0 Seconds (25.6-37.1) 02/11/18 04:20 - Constitutional Appears: No Acute Distress - Head Exam Head Exam: NORMAL INSPECTION - Eye Exam Pupil Exam: PERRL Additional comments: 4 mm brisk - Neurological Exam Neurological Exam: Alert, Awake Neuro motor strength exam: Left Upper Extremity: 4, Right Upper Extremity: 4, Left Lower Extremity: 4, Right Lower Extremity: 4 Additional comments: alert, oriented with mild dysarthria, follow simple commands. Assessment and Plan (1) Carotid stenosis Assessment & Plan: Case discussed with Dr. Bach, recommended a neurointerventional consult and hydration, keep head of bed elevated at least 30 degrees, blood pressure control to improve brain perfusion Status: Acute
--- NOTE | 2018-02-12 12:11 | CP.PCM.PN ---
Subjective - Date & Time of Evaluation Date of Evaluation: 02/12/18 Time of Evaluation: 10:30 - Subjective Subjective: F/U Generalized Weakness. Dysarthria, forgetful Objective - Vital Signs/Intake and Output Vital Signs (last 24 hours): Temp Pulse Resp BP Pulse Ox 98.6 F 86 20 103/68 98 02/12/18 08:00 02/12/18 08:00 02/12/18 08:00 02/12/18 08:00 02/12/18 08:00 - Medications Medications: Current Medications Albuterol/Ipratropium (Duoneb 3 Mg/0.5 Mg (3 Ml) Ud) 3 ml INH RTID [facility] Last Admin: 02/12/18 07:22 Dose: 3 ml Aspirin (Aspirin Chewable) 81 mg PO DAILY [facility] Last Admin: 02/12/18 09:29 Dose: 81 mg Carvedilol (Coreg) 12.5 mg PO Q12 [facility] Clopidogrel Bisulfate (Plavix) 75 mg PO DAILY [facility] Last Admin: 02/11/18 17:38 Dose: 75 mg Enoxaparin Sodium (Lovenox) 40 mg SC DAILY [facility] PRN Reason: Protocol Last Admin: 02/12/18 09:27 Dose: 40 mg [id number] Ethyl Esters (Lovaza) 2 gm PO Q12 [facility] Tamsulosin HCl (Flomax) 0.4 mg PO DAILY [facility] - Labs Labs: 02/11/18 04:20 02/12/18 04:20 PT 22.8 Seconds (9.8-13.1) H 02/11/18 04:20 INR 2.0 (0.9-1.2) H 02/11/18 04:20 APTT 30.0 Seconds (25.6-37.1) 02/11/18 04:20 - Constitutional Appears: No Acute Distress, Chronically Ill - Head Exam Head Exam: NORMAL INSPECTION - Eye Exam Eye Exam: PERRL - ENT Exam ENT Exam: Mucous Membranes Dry - Neck Exam Neck Exam: Normal Inspection - Respiratory Exam Respiratory Exam: Decreased Breath Sounds - Cardiovascular Exam Cardiovascular Exam: REGULAR RHYTHM Additional comments: PPM - GI/Abdominal Exam GI & Abdominal Exam: Soft, Normal Bowel Sounds - Extremities Exam Additional comments: R-L TKR - Back Exam Back Exam: NORMAL INSPECTION - Neurological Exam Neurological Exam: Awake Additional comments: Slurred speech but much clear, confused, generalized weakness. Assessment and Plan (1) Generalized weakness Status: Acute (2) Difficulty with speech Status: Acute (3) History of permanent cardiac pacemaker placement Status: Resolved (4) CHF (congestive heart failure) Status: Chronic - Assessment and Plan (Free Text) Plan: Continue Duoneb, Lovenox, Plavix, Coreg and rest of Tx. PT eval for ARIANNA.
--- NOTE | 2018-02-12 13:14 | US ---
HISTORY: jaundice COMPARISON: CT chest abdomen and pelvic with contrast report 07/05/2017 TECHNIQUE: Sonographic evaluation of the right upper quadrant of the abdomen. Technologist is noted that exam was technically difficult given patient's ability and/or willingness to cooperate. FINDINGS: LIVER: Measures 19.2 cm in length. Normal echogenicity of the liver parenchyma. No mass. No intrahepatic bile duct dilatation. GALLBLADDER: Moderately distended gallbladder- gallbladder wall thickness increased at 4.5 mm. Some ascites suggested. The sliver like calcification within the gallbladder wall and/or sliver like gallstone on the prior CT study is not depicted on these images. COMMON BILE DUCT: Measures 3.1 mm. No stones. No dilatation. PANCREAS: Unremarkable as visualized. No mass. No ductal dilatation. RIGHT KIDNEY: Measures 11.6 x 5.9 x 4.1 cm in length. Normal echogenicity. No calculus, mass, or hydronephrosis. AORTA: No aneurysmal dilatation. IVC: Unremarkable. OTHER FINDINGS: Minimal ascites suggested IMPRESSION: Minimal ascites. Hepatomegaly. Gallbladder wall thickening -can be seen in multiple etiologies including ascites. No positive George sign elicited per technologist. No definitive shadowing gallstones seen on this exam. The prior sliver like calcification over the posterior gallbladder wall on the 2017 CT study is not reproduced on this exam. This non reproduced status could still be technical as stated above. No dilated ducts.
--- NOTE | 2018-02-12 15:48 | CP.PCM.CON ---
History of Present Illness - History of Present Illness History of Present Illness: NEURO-INTERVENTIONAL CONSULTATION The patient is a 77 year old male with a PMH that is sig for HTN, CHF, and COPD. The patient presented to the ER with weakness and difficulty speaking. These symptoms had been going on several days prior to presentation. CT scan done in the ER showed no acuity, CTA of the head and neck showed left intracranial Supraclinoid ICA ICAD and moderate supraclinoid right ICA ICAD. Review of Systems - Cardiovascular Cardiovascular: As Per HPI - Musculoskeletal Musculoskeletal: As Per HPI - Neurological Neurological: As Per HPI Past Patient History - Past Medical History & Family History Past Medical History?: Yes - Past Social History Smoking Status: Former Smoker Alcohol: None Drugs: Denies Home Situation {Lives}: With Family - CARDIAC Hx Cardiac Disorders: Yes Hx Congestive Heart Failure: Yes Hx Hypertension: Yes Hx Pacemaker: Yes Other/Comment: Dyslipidemia - PULMONARY Hx Respiratory Disorders: Yes Hx Chronic Obstructive Pulmonary Disease (COPD): Yes - NEUROLOGICAL Hx Neurological Disorder: No - HEENT Hx HEENT Problems: No - RENAL Hx Chronic Kidney Disease: No - ENDOCRINE/METABOLIC Hx Endocrine Disorders: No - HEMATOLOGICAL/ONCOLOGICAL Hx Blood Disorders: No - INTEGUMENTARY Hx Dermatological Problems: No - MUSCULOSKELETAL/RHEUMATOLOGICAL Hx Musculoskeletal Disorders: Yes Hx Back Pain: Yes Hx Falls: Yes Hx Osteoarthritis: Yes - GASTROINTESTINAL Hx Gastrointestinal Disorders: No - GENITOURINARY/GYNECOLOGICAL Hx Genitourinary Disorders: Yes Hx Prostate Problems: Yes - PSYCHIATRIC Hx Psychophysiologic Disorder: Yes Hx Anxiety: Yes Hx Substance Use: No - SURGICAL HISTORY Hx Surgeries: Yes Hx Herniorrhaphy: Yes Hx Joint Replacement: Yes (R L TKR) Hx Tonsillectomy: Yes Other/Comment: PACEMAKER - ANESTHESIA Hx Anesthesia: Yes Hx Anesthesia Reactions: No Hx Malignant Hyperthermia: No Meds Allergies/Adverse Reactions: Allergies Allergy/AdvReac Type Severity Reaction Status Date / Time No Known Allergies Allergy Verified 02/10/18 18:39 - Medications Medications: Current Medications Albuterol/Ipratropium (Duoneb 3 Mg/0.5 Mg (3 Ml) Ud) 3 ml INH RTID [facility] Last Admin: 02/12/18 13:30 Dose: 3 ml Aspirin (Aspirin Chewable) 81 mg PO DAILY [facility] Last Admin: 02/12/18 09:29 Dose: 81 mg Carvedilol (Coreg) 12.5 mg PO Q12 [facility] Clopidogrel Bisulfate (Plavix) 75 mg PO DAILY [facility] Last Admin: 02/11/18 17:38 Dose: 75 mg Enoxaparin Sodium (Lovenox) 40 mg SC DAILY [facility] PRN Reason: Protocol Last Admin: 02/12/18 09:27 Dose: 40 mg [id number] Ethyl Esters (Lovaza) 2 gm PO Q12 [facility] Tamsulosin HCl (Flomax) 0.4 mg PO DAILY [facility] Physical Exam - Additional Findings Additional findings: NEURO EXAM Awake, alert PERRL, EOMI Mild dysarthria follow simple commands +atrophy in bilateral first dorsal interosseus spaces Moves all extremities, no drift Results - Vital Signs Recent Vital Signs: Last Vital Signs Temp 98.1 F 02/12/18 12:46 Pulse 97 H 02/12/18 12:46 Resp 20 02/12/18 12:46 BP 108/76 02/12/18 12:46 Pulse Ox 95 02/12/18 12:46 - Labs Result Diagrams: 02/11/18 04:20 02/12/18 04:20 Labs: Laboratory Results - last 24 hr 02/12/18 04:20 Sodium 135 Potassium 4.4 Chloride 106 Carbon Dioxide 17 L Anion Gap 16 BUN 12 Creatinine 0.6 L Est GFR ( Amer) > 60 Est GFR (Non-Af Amer) > 60 Random Glucose 80 Calcium 8.5 Total Bilirubin 1.1 AST 96 H D ALT 259 H D Alkaline Phosphatase 80 Total Protein 6.5 Albumin 3.1 L Globulin 3.4 Albumin/Globulin Ratio 0.9 L Assessment & Plan - Assessment and Plan (Free Text) Assessment: 77 year 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 Primary management as per Neurology, agree with possible state of hypoperfusion secondary to (or exacerbated by )dehydration. 2-No current indication for Neruointerventional therapy. 3- given bilateral atrophy of first interosseus spaces, could consider imaging of c-spine. d/w Dr. Bach - Date & Time Date: 02/12/18 Time: 15:47
[2018-02-13] MEDS: Albuterol-Ipratrop 3 mg / 0.5 (3 ml) UD INH SCH ×2 (07:56→13:46)
[2018-02-13] MEDS: Omega-3-Acid Ethyl Esters 1 GM Cap PO SCH (09:04)
[2018-02-13] MEDS: Enoxaparin 40 mg Syringe SC SCH (09:05)
--- NOTE | 2018-02-13 10:49 | CP.PCM.PN ---
Subjective - Date & Time of Evaluation Date of Evaluation: 02/13/18 Time of Evaluation: 10:49 - Subjective Subjective: Mr. Scott was seen and examined at the bedside. He is alert, oriented, but with dysarthria. He denies any headache, dizziness, lightheadedness, nausea, or vomiting. He is able to follow commands and feed himself with minimal assistance. Seen by neurointerventionalist with recommendation of medical therapy.There was no untoward events overnight. Objective - Vital Signs/Intake and Output Vital Signs (last 24 hours): Temp Pulse Resp BP Pulse Ox 97.8 F 90 20 107/72 98 02/13/18 08:11 02/13/18 08:11 02/13/18 08:11 02/13/18 08:11 02/13/18 08:11 - Medications Medications: Current Medications Albuterol/Ipratropium (Duoneb 3 Mg/0.5 Mg (3 Ml) Ud) 3 ml INH RTID [facility] Last Admin: 02/13/18 07:56 Dose: 3 ml Aspirin (Aspirin Chewable) 81 mg PO DAILY [facility] Last Admin: 02/13/18 09:04 Dose: 81 mg Carvedilol (Coreg) 12.5 mg PO Q12 [facility] Clopidogrel Bisulfate (Plavix) 75 mg PO DAILY [facility] Last Admin: 02/13/18 09:05 Dose: 75 mg Enoxaparin Sodium (Lovenox) 40 mg SC DAILY [facility] PRN Reason: Protocol Last Admin: 02/13/18 09:05 Dose: 40 mg Pcurr-7-Tisk Ethyl Esters (Lovaza) 2 gm PO Q12 [facility] Last Admin: 02/13/18 09:04 Dose: 2 gm Tamsulosin HCl (Flomax) 0.4 mg PO DAILY [facility] Last Admin: 02/13/18 09:04 Dose: 0.4 mg - Labs Labs: 02/11/18 04:20 02/12/18 04:20 PT 22.8 Seconds (9.8-13.1) H 02/11/18 04:20 INR 2.0 (0.9-1.2) H 02/11/18 04:20 APTT 30.0 Seconds (25.6-37.1) 02/11/18 04:20 - Constitutional Appears: No Acute Distress - Head Exam Head Exam: NORMAL INSPECTION - Eye Exam Pupil Exam: PERRL - Neurological Exam Neurological Exam: Alert, Awake, Oriented x3 Neuro motor strength exam: Left Upper Extremity: 4, Right Upper Extremity: 5, Left Lower Extremity: 3, Right Lower Extremity: 3 Additional comments: neurological unchanged from previous examination. Assessment and Plan (1) Carotid stenosis Assessment & Plan: Case discussed with Dr. Bach, continue medical, physical, occupational, and speech therapies. Recommended hydration, keep head of bed elevated at least 30 degrees, blood pressure control to improve brain perfusion Status: Acute
--- NOTE | 2018-02-13 13:24 | US ---
PROCEDURE: Duplex ultrasound of the carotid and vertebral arteries. HISTORY: weakness,slurred speech COMPARISON: None available. TECHNIQUE: Grayscale and duplex Doppler evaluation of the cervical carotid and vertebral arteries were performed. The common carotid, carotid bifurcations and cervical ICA and proximal ECA were evaluated. The vertebral arteries were evaluated for gross patency and direction. FINDINGS: RIGHT CAROTID ARTERIES: Common Carotid Artery: Normal. Maximal flow velocity of 65.4 cm/s. Carotid Bifurcation: Normal. Internal Carotid Artery:Normal. Maximal flow velocity of 53.7 cm/s. External Carotid Artery (proximal branches): Normal. Maximal flow velocity of 39.2 cm/s. ICA/CCA Ratio: 0.8 LEFT CAROTID ARTERIES: Common Carotid Artery: Normal. Maximal flow velocity of 56.7 cm/s. Carotid Bifurcation: Normal. Internal Carotid Artery:Normal. Maximal flow velocity of 56.8 cm/s. External Carotid Artery (proximal branches): Normal. Maximal flow velocity of 53.1 cm/s. ICA/CCA Ratio: 1.0 VERTEBRAL ARTERIES: Right Vertebral Artery: Patent. Antegrade flow. Left Vertebral Artery: Patent. Antegrade flow. OTHER FINDINGS: None. IMPRESSION: No significant stenosis of the cervical common or internal carotid artery's an antegrade flows identified the bilateral vertebral arteries.
--- NOTE | 2018-02-13 13:26 | CP.PCM.PN ---
Subjective - Date & Time of Evaluation Date of Evaluation: 02/13/18 Objective - Vital Signs/Intake and Output Vital Signs (last 24 hours): Temp Pulse Resp BP Pulse Ox 97.7 F 103 H 20 97/65 L 94 L 02/13/18 12:23 02/13/18 12:23 02/13/18 12:23 02/13/18 12:23 02/13/18 12:23 - Medications Medications: Current Medications Albuterol/Ipratropium (Duoneb 3 Mg/0.5 Mg (3 Ml) Ud) 3 ml INH RTID [facility] Last Admin: 02/13/18 07:56 Dose: 3 ml Aspirin (Aspirin Chewable) 81 mg PO DAILY [facility] Last Admin: 02/13/18 09:04 Dose: 81 mg Carvedilol (Coreg) 12.5 mg PO Q12 [facility] Clopidogrel Bisulfate (Plavix) 75 mg PO DAILY [facility] Last Admin: 02/13/18 09:05 Dose: 75 mg Enoxaparin Sodium (Lovenox) 40 mg SC DAILY [facility] PRN Reason: Protocol Last Admin: 02/13/18 09:05 Dose: 40 mg Admxi-6-Rosg Ethyl Esters (Lovaza) 2 gm PO Q12 [facility] Last Admin: 02/13/18 09:04 Dose: 2 gm Tamsulosin HCl (Flomax) 0.4 mg PO DAILY [facility] Last Admin: 02/13/18 09:04 Dose: 0.4 mg - Labs Labs: 02/11/18 04:20 02/12/18 04:20 PT 22.8 Seconds (9.8-13.1) H 02/11/18 04:20 INR 2.0 (0.9-1.2) H 02/11/18 04:20 APTT 30.0 Seconds (25.6-37.1) 02/11/18 04:20 Assessment and Plan (1) Generalized weakness Status: Acute (2) Difficulty with speech Status: Acute (3) History of permanent cardiac pacemaker placement Status: Resolved (4) CHF (congestive heart failure) Status: Chronic
[2018-02-13 16:31] VITALS: BP 99/65; PULSE 99; RESP 17; TEMP 98.9; O2SAT 100
--- NOTE | 2018-02-13 18:27 | CP.PCM.DIS ---
Provider - Provider Date of Admission: 02/10/18 21:08 Attending physician: Mike Mueller MD Consults: Neurology and Cardiology Time Spent in preparation of Discharge (in minutes): 35 Diagnosis - Discharge Diagnosis (1) Generalized weakness Status: Acute Priority: High (2) Difficulty with speech Status: Acute Priority: High (3) History of permanent cardiac pacemaker placement Status: Resolved Priority: Medium (4) CHF (congestive heart failure) Status: Chronic Hospital Course - Lab Results Lab Results: Micro Results 02/10/18 19:00 Blood-Venous Blood Culture - Preliminary NO GROWTH AFTER 48 HOURS 02/10/18 19:15 Blood-Venous Blood Culture - Preliminary NO GROWTH AFTER 48 HOURS 02/10/18 19:52 Urine,Chen Urine Culture - Final No Growth (<1,000 CFU/ML) Most Recent Lab Values WBC 5.1 K/uL (4.8-10.8) 02/11/18 04:20 RBC 3.76 Mil/uL (4.40-5.90) L 02/11/18 04:20 Hgb 11.2 g/dL (12.0-18.0) L 02/11/18 04:20 Hct 34.7 % (35.0-51.0) L 02/11/18 04:20 MCV 92.3 fl (80.0-94.0) 02/11/18 04:20 MCH 29.8 pg (27.0-31.0) 02/11/18 04:20 MCHC 32.4 g/dL (33.0-37.0) L 02/11/18 04:20 RDW 17.3 % (11.5-14.5) H 02/11/18 04:20 Plt Count 206 K/uL (130-400) 02/11/18 04:20 MPV 8.3 fl (7.2-11.7) 02/10/18 19:00 Neut % (Auto) 59.1 % (50.0-75.0) 02/10/18 19:00 Lymph % (Auto) 27.0 % (20.0-40.0) 02/10/18 19:00 [place] % (Auto) 10.1 % (0.0-10.0) H 02/10/18 19:00 Eos % (Auto) 2.6 % (0.0-4.0) 02/10/18 19:00 Baso % (Auto) 1.2 % (0.0-2.0) 02/10/18 19:00 Neut # (Auto) 3.1 K/uL (1.8-7.0) 02/10/18 19:00 Lymph # (Auto) 1.4 K/uL (1.0-4.3) 02/10/18 19:00 [place] # (Auto) 0.5 K/uL (0.0-0.8) 02/10/18 19:00 Eos # (Auto) 0.1 K/uL (0.0-0.7) 02/10/18 19:00 Baso # (Auto) 0.1 K/uL (0.0-0.2) 02/10/18 19:00 PT 22.8 Seconds (9.8-13.1) H 02/11/18 04:20 INR 2.0 (0.9-1.2) H 02/11/18 04:20 APTT 30.0 Seconds (25.6-37.1) 02/11/18 04:20 Sodium 135 mmol/l (132-148) 02/12/18 04:20 Potassium 4.4 MMOL/L (3.6-5.0) 02/12/18 04:20 Chloride 106 mmol/L (98-107) 02/12/18 04:20 Carbon Dioxide 17 mmol/L (22-30) L 02/12/18 04:20 Anion Gap 16 (10-20) 02/12/18 04:20 BUN 12 mg/dl (9-20) 02/12/18 04:20 Creatinine 0.6 mg/dl (0.8-1.5) L 02/12/18 04:20 Est GFR ( Amer) > 60 02/12/18 04:20 Est GFR (Non-Af Amer) > 60 02/12/18 04:20 POC Glucose (mg/dL) 94 mg/dL (65-110) 02/10/18 18:49 Random Glucose 80 mg/dL (75-110) 02/12/18 04:20 Lactic Acid 1.4 MMOL/L (0.7-2.1) 02/10/18 19:25 Calcium 8.5 mg/dL (8.4-10.2) 02/12/18 04:20 Phosphorus 2.6 mg/dl (2.5-4.5) 02/10/18 19:00 Magnesium 2.3 MG/DL (1.6-2.3) 02/10/18 19:00 Total Bilirubin 1.1 mg/dl (0.2-1.3) 02/12/18 04:20 AST 96 U/L (17-59) H D 02/12/18 04:20 ALT 259 U/L (21-72) H D 02/12/18 04:20 Alkaline Phosphatase 80 U/L (38-126) 02/12/18 04:20 Total Creatine Kinase 55 U/L (55-170) 02/10/18 19:00 Troponin I < 0.0120 ng/mL (0.00-0.120) 02/11/18 11:37 NT-Pro-B Natriuret Pep 42822 pg/ml (0-900) H 02/10/18 19:00 Total Protein 6.5 G/DL (6.3-8.2) 02/12/18 04:20 Albumin 3.1 g/dL (3.5-5.0) L 02/12/18 04:20 Globulin 3.4 gm/dL (2.2-3.9) 02/12/18 04:20 Albumin/Globulin Ratio 0.9 (1.0-2.1) L 02/12/18 04:20 Triglycerides 74 mg/DL (0-149) 02/11/18 04:20 Cholesterol 90 mg/dL (0-199) 02/11/18 04:20 LDL Cholesterol Direct 52 mg/dL (0-129) 02/11/18 04:20 HDL Cholesterol 14 MG/DL (30-70) L 02/11/18 04:20 Thyroxine (T4) 5.98 ug/dl (5.5-11.0) 02/11/18 04:20 TSH 3rd Generation 0.97 mIU/ML (0.46-4.68) 02/11/18 04:20 Urine Color Mary (YELLOW) 02/10/18 19:52 Urine Clarity Cloudy (Clear) 02/10/18 19:52 Urine pH 6.0 (5.0-8.0) 02/10/18 19:52 Ur Specific [place] 1.026 (1.003-1.030) 02/10/18 19:52 Urine Protein 100 mg/dL (NEGATIVE) 02/10/18 19:52 Urine Glucose (UA) Neg mg/dL (Normal) 02/10/18 19:52 Urine Ketones Negative mg/dL (NEGATIVE) 02/10/18 19:52 Urine Blood Negative (NEGATIVE) 02/10/18 19:52 Urine Nitrate Negative (NEGATIVE) 02/10/18 19:52 Urine Bilirubin Negative (NEGATIVE) 02/10/18 19:52 Urine Urobilinogen 2.0 mg/dL (0.2-1.0) 02/10/18 19:52 Ur Leukocyte Esterase Neg Rk/uL (Negative) 02/10/18 19:52 Urine RBC (Auto) 6 /hpf (0-3) H 02/10/18 19:52 Urine Microscopic WBC 1 /hpf (0-5) 02/10/18 19:52 Ur Squamous Epith Cells < 1 /hpf (0-5) 02/10/18 19:52 Urine Bacteria Rare (<OCC) 02/10/18 19:52 Blood Type O POSITIVE 02/10/18 19:00 Antibody Screen Negative 02/10/18 19:00 BBK History Checked Patient has bt 02/10/18 19:00 - Date & Time of H&P Date of H&P: 02/11/18 Time of H&P: 10:40 Discharge Exam - Head Exam Head Exam: NORMAL INSPECTION - Eye Exam Eye Exam: PERRL - ENT Exam ENT Exam: Mucous Membranes Dry - Neck Exam Neck exam: Normal Inspection - Respiratory Exam Respiratory Exam: Decreased Breath Sounds - Cardiovascular Exam Cardiovascular Exam: REGULAR RHYTHM Additional comments: PPM - GI/Abdominal Exam GI & Abdominal Exam: Normal Bowel Sounds, Soft - Extremities Exam Additional comments: R/L TKR - Back Exam Back exam: NORMAL INSPECTION - Neurological Exam Additional comments: Awake, confused, generalized weakness Discharge Plan - Discharge Medications Prescriptions: Atorvastatin [Lipitor] 40 mg PO DAILY #30 tab - Follow Up Plan Condition: GUARDED Disposition: TRANSF TO SNF
--- NOTE | 2018-02-25 11:36 | PQF ---
PROVIDER RESPONSE TEXT: Chronic diastolic REVIEWER QUERY TEXT: CHF Acuity and Type Congestive Heart Failure is documented in the Medical Record. Please document the type and acuity (in cludes probable or suspected) Such as: Type: -- Systolic -- Diastolic -- Combined -- Other, please specify Acuity: -- Acute -- Chronic -- Acute on chronic -- Other, please specify Also please document the underlying cause of the CHF (includes probable or suspected) The patient's Clinical Indicators include: chronic chf Query created by: Kezia Mcneil on 02/14/2018 1:22 PM Electronically signed by: Steven Peralta MD 02/25/2018 11:33 AM
== END 2018-02-13 17:40 | DRG 68 ==
LOC: H.ER 18:36 → H.ERHOLD 21:08 → H.TEL 23:31
PROVIDERS: ADMIT Internal Medicine Pulmonary Disease; ATTEND Internal Medicine Pulmonary Disease
DX: I65.23 Occlusion and stenosis of bilateral carotid arteries (principal); I50.32 Chronic diastolic (congestive) heart failure; I67.2 Cerebral atherosclerosis; Z87.891 Personal history of nicotine dependence; I11.0 Hypertensive heart disease with heart failure; Z95.0 Presence of cardiac pacemaker; E78.5 Hyperlipidemia, unspecified; I25.10 Atherosclerotic heart disease of native coronary artery without angina pectoris; J44.9 Chronic obstructive pulmonary disease, unspecified; F41.9 Anxiety disorder, unspecified; E86.0 Dehydration; R47.81 Slurred speech; R47.1 Dysarthria and anarthria; R53.1 Weakness

== ENCOUNTER 2018-03-12 14:13 | Inpatient (IN) | payer MEDICARE ==
[2018-03-12] MEDS ORDERED: Sodium Chloride 0.9% 1,000 ML IV STA ×2 (14:44→15:25)
--- NOTE | 2018-03-12 14:54 | RAD ---
Date of service: 03/12/2018 PROCEDURE: CHEST RADIOGRAPH, 1 VIEW HISTORY: AMS COMPARISON: 02/10/2018 FINDINGS: LUNGS: No consolidation. Mild central pulmonary venous congestion probably slightly increased since prior study. Trace linear discoid atelectasis left lung base. PLEURA: No pneumothorax or pleural fluid seen. CARDIOVASCULAR: Cardiomegaly. AICD device -similar in appearance additional central pulmonary hilar vasculature appears slightly prominent and similar. OSSEOUS STRUCTURES: Thoracic spondylosis-similar VISUALIZED UPPER ABDOMEN: Normal. OTHER FINDINGS: None. IMPRESSION: Cardiomegaly and mild pulmonary venous congestion inferred. And minimally increased. AICD device in place
[2018-03-12 14:58] LABS: BASO # 0.1 K/uL (0.0-0.2); BASO % 1.3 % (0.0-2.0); EOS % 0.5 % (0.0-4.0); HEMOGLOBIN 13.1 g/dL (12.0-18.0); LYMPH # 1.6 K/uL (1.0-4.3); LYMPH % 37.6 % (20.0-40.0); MEAN CELL VOLUME 93.8 fl (80.0-94.0); MEAN CORPUSCULAR HEMOGLOBIN 31.4 pg (27.0-31.0); MEAN CORPUSCULAR HGB CONC 33.5 g/dL (33.0-37.0); MEAN PLATELET VOLUME 8.7 fl (7.2-11.7); MONO # 0.4 K/uL (0.0-0.8); MONO % 8.8 % (0.0-10.0); NEUT # 2.2 K/uL (1.8-7.0); NEUT % 51.8 % (50.0-75.0); NRBC % 0.3 % (0.0-0.0); RBC 4.17 Mil/uL (4.40-5.90); RED CELL DISTRIBUTION WIDTH 20.8 % (11.5-14.5); WHITE BLOOD COUNT 4.3 K/uL (4.8-10.8)
[2018-03-12] MEDS ORDERED: Nystatin 100,000 Units/ml Oral Susp 5 ml UD PO ONE (15:00)
[2018-03-12 15:18] LABS: INR 2.3 (0.9-1.2); PARTIAL THROMBOPLASTIN TIME 30.9 Seconds (25.6-37.1); PROTHROMBIN TIME 26.3 Seconds (9.8-13.1)
[2018-03-12 15:23] LABS: ALB/GLOB RATIO 1.1 (1.0-2.1); ALBUMIN 3.4 g/dL (3.5-5.0); ALT/SGPT 74 U/L (21-72); AST/SGOT 94 U/L (17-59); BLOOD UREA NITROGEN 24 mg/dl (9-20); GFR AFRICAN-AMERICAN > 60; GFR NON-AFRICAN AMERICAN > 60
--- NOTE | 2018-03-12 15:27 | ED PDOC ---
HPI: Altered Mental Status Time Seen by Provider: 03/12/18 14:28 Chief Complaint (Nursing): Altered Mental Status Chief Complaint (Provider): Jaundice History Per: Other ([facility]) History/Exam Limitations: Clinical Condition Onset/Duration Of Symptoms: Other Current Symptoms Are (Timing): Still Present Additional Complaint(s): 77 y/o male with a PMHx of hepatitis A and B sent from [facility] for evaluation of jaundice. Patient at baseline which is altered. PMD: Dr. Mueller Past Medical History Reviewed: Historical Data, Nursing Documentation, Vital Signs Vital Signs: Last Vital Signs Temp 97.6 F 03/12/18 14:17 Pulse 110 H 03/12/18 14:17 Resp 16 03/12/18 14:17 BP 89/57 L 03/12/18 14:17 Pulse Ox 99 03/12/18 14:17 - Medical History PMH: Anxiety, CHF, COPD, HTN Denies: Chronic Kidney Disease - Surgical History Surgical History: Pacemaker, Tonsillectomy - Family History Family History: States: Unknown Family Hx, Hypertension - Home Medications Home Medications: Ambulatory Orders Medication Instructions Recorded Tamsulosin [Flomax] 0.4 mg PO QPM 07/01/17 Alprazolam [Xanax] 0.5 mg PO Q8 PRN 02/10/18 Aspirin [Ecotrin] 81 mg PO QPM 02/10/18 Budesonide/Formoterol Fumarate 2 puff IH Q12 02/10/18 [Symbicort 160-4.5 Mcg Inhaler] Carvedilol [Coreg] 12.5 mg PO BID 02/10/18 Icosapent Ethyl [Vascepa] 2 gm PO Q12 02/10/18 Promethazine HCl/Codeine 10 ml PO Q4 PRN 02/10/18 [Prometh-Codein 6.25-10 mg/5 ml] oxyCODONE/Acetaminophen [Percocet 1 tab PO Q6 PRN 02/10/18 5/325 mg Tab] Clopidogrel [Plavix] 75 mg PO DAILY tab 02/13/18 Acetaminophen [Tylenol 325mg tab] 650 mg PO Q4 PRN 03/12/18 Acetaminophen [Tylenol 325mg tab] 650 mg PO Q4 PRN 03/12/18 Atorvastatin [Lipitor] 40 mg PO HS 03/12/18 Bisacodyl [Dulcolax] 10 mg ND DAILY PRN 03/12/18 Furosemide [Lasix] 20 mg PO DAILY 03/12/18 Magnesium Hydroxide [Milk Of 30 ml PO HS PRN 03/12/18 Magnesia] - Allergies Allergies/Adverse Reactions: Allergies Allergy/AdvReac Type Severity Reaction Status Date / Time No Known Allergies Allergy Verified 03/12/18 14:17 Review of Systems Review Of Systems: ROS cannot be obtained secondary to pt's inabilty to answer questions. Physical Exam - Reviewed Nursing Documentation Reviewed: Yes Vital Signs Reviewed: Yes - Physical Exam Appears: Positive for: Non-toxic, No Acute Distress Head Exam: Positive for: ATRAUMATIC, NORMAL INSPECTION, NORMOCEPHALIC Skin: Positive for: Normal Color, Warm, DRY Eye Exam: Positive for: EOMI, PERRL, Other (pale conjunctiva) ENT: Positive for: Other (white plaques to posterior upper soft palette consistent with thrush) Neck: Positive for: Normal, Painless ROM, Supple Cardiovascular/Chest: Positive for: Regular Rate, Rhythm. Negative for: Murmur Respiratory: Positive for: Normal Breath Sounds. Negative for: Respiratory Distress Gastrointestinal/Abdominal: Positive for: Normal Exam, Soft. Negative for: Tenderness Back: Positive for: Normal Inspection. Negative for: L CVA Tenderness, R CVA Tenderness, Vertebral Tenderness Extremity: Positive for: Normal ROM. Negative for: Pedal Edema, Deformity Neurologic/Psych: Positive for: Alert, Oriented (x1) - Laboratory Results Result Diagrams: 03/13/18 05:30 03/13/18 05:30 - ECG Interpretation Of ECG: Wide complex @ 102, LBBB (old). O2 Sat by Pulse Oximetry: 99 (RA) Pulse Ox Interpretation: Normal Medical Decision Making Medical Decision Making: Plan: -CT Head w/o contrast -EKG -Ammonia -CMP -Troponin I -Urine dipstick -CBC -PTT/PT -CXR -Glucose, POC -1LNS -Nystatin 5ml PO -Urinalysis -Reevaluation Accession No. : [id number] Patient Name / ID : OLGA Hernandez / [id number] Exam Date : 03/12/2018 14:36:45 ( Approved ) Study Comment : Sex / Age : M / 77Y Creator : Dictator : Stone Breaker : Buffing Machine Tender : Magda Hurtado Approver2 : Report Date : My Comment : Date of service: 03/12/2018 PROCEDURE: CHEST RADIOGRAPH, 1 VIEW HISTORY: AMS COMPARISON: 02/10/2018 FINDINGS: LUNGS: No consolidation. Mild central pulmonary venous congestion probably slightly increased since prior study. Trace linear discoid atelectasis left lung base. PLEURA: No pneumothorax or pleural fluid seen. CARDIOVASCULAR: Cardiomegaly. AICD device -similar in appearance additional central pulmonary hilar vasculature appears slightly prominent and similar. OSSEOUS STRUCTURES: Thoracic spondylosis-similar VISUALIZED UPPER ABDOMEN: Normal. OTHER FINDINGS: None. IMPRESSION: Cardiomegaly and mild pulmonary venous congestion inferred. And minimally increased. AICD device in place Accession No. : [id number] Patient Name / ID : OLGA Hernandez / [id number] Exam Date : 03/12/2018 15:04:40 ( Approved ) Study Comment : Sex / Age : M / 77Y Creator : Bibi Jensen MD Dictator : Bibi Jensen MD Stone Breaker : Buffing Machine Tender : Bibi Jensen MD Approver2 : Report Date : 03/12/2018 15:31:46 My Comment : Date of service: 03/12/2018 PROCEDURE: CT HEAD WITHOUT CONTRAST. HISTORY: AMS COMPARISON: None available. TECHNIQUE: Axial computed tomography images were obtained through the head/brain without intravenous contrast. Radiation dose: Total exam DLP = 1152.05 mGy-cm. This CT exam was performed using one or more of the following dose reduction techniques: Automated exposure control, adjustment of the mA and/or kV according to patient size, and/or use of iterative reconstruction technique. FINDINGS: HEMORRHAGE: No intracranial hemorrhage. BRAIN: There are mild chronic microangiopathic changes. There is no mass, mass effect or abnormal extra-axial fluid collection. There is no territorial infarction. The midline sagittal structures are normal. There are coarse atherosclerotic calcifications in the cavernous carotid arteries. VENTRICLES: There is moderate age-related global parenchymal volume loss and proportionate enlargement of the ventricles and cortical sulci. CALVARIUM: Unremarkable. PARANASAL SINUSES: Predominantly clear. MASTOID AIR CELLS: Predominantly clear. OTHER FINDINGS: None. IMPRESSION: No acute intracranial abnormality. Mild chronic microangiopathic changes and moderate age-related global parenchymal volume loss. Accession No. : [id number] Patient Name / ID : OLGA Hernandez / [id number] Exam Date : 03/12/2018 15:44:41 ( Approved ) Study Comment : Sex / Age : M / 77Y Creator : Bibi Jensen MD Dictator : Bibi Jensen MD Stone Breaker : Buffing Machine Tender : Bibi Jensen MD Approver2 : Report Date : 03/12/2018 17:33:16 My Comment : Date of service: 03/12/2018 PROCEDURE: CT Abdomen and Pelvis with contrast HISTORY: Jaundice COMPARISON: None. TECHNIQUE: CT scan of the abdomen and pelvis was performed after administration of intravenous contrast. Oral contrast was not administered. Coronal and sagittal reformatted images were obtained. Contrast dose: 95 mL Omnipaque 300 Radiation dose: Total exam DLP = mGy-cm. This CT exam was performed using one or more of the following dose reduction techniques: Automated exposure control, adjustment of the mA and/or kV according to patient size, and/or use of iterative reconstruction technique. FINDINGS: LOWER THORAX: There are moderate bilateral pleural effusions, larger on the right. LIVER: Mild hepatomegaly and diffuse fatty liver. No gross lesion or ductal dilatation. GALLBLADDER AND BILE DUCTS: There is a small gallstone. PANCREAS: Normal in size with homogeneous enhancement. No gross lesion or ductal dilatation. SPLEEN: Normal in size and appearance. ADRENALS: No discrete nodule. KIDNEYS AND URETERS: Normal in size with homogeneous enhancement. No hydronephrosis. No solid mass. VASCULATURE: No aortic aneurysm. BOWEL: Unremarkable. No obstruction. No gross mural thickening. APPENDIX: Normal appendix. PERITONEUM: There is moderate abdominal and pelvic ascites. No free air. LYMPH NODES: No enlarged lymph nodes. BLADDER: Decompressed. REPRODUCTIVE: Unremarkable. BONES: No acute fracture. Advanced multilevel degenerative disc disease. OTHER FINDINGS: There is diffuse anasarca. IMPRESSION: 1. Moderate pleural effusions, larger on the right, moderate abdominal and pelvic ascites and diffuse anasarca. 2. Mild hepatomegaly. Fatty liver. 3. Sigmoid diverticulosis without CT evidence for acute diverticulitis. Scribe Attestation: Documented by Jered Ray, acting as a scribe for Martina Workman MD. Provider Scribe Attestation: All medical record entries made by the Scribe were at my direction and personally dictated by me. I have reviewed the chart and agree that the record accurately reflects my personal performance of the history, physical exam, medical decision making, and the department course for this patient. I have also personally directed, reviewed, and agree with the discharge instructions and disposition. Disposition - Clinical Impression Clinical Impression: Altered mental status, UTI (urinary tract infection) - Patient ED Disposition Is Patient to be Admitted: Yes - Disposition Disposition Time: 16:48 Condition: GUARDED - Pt Status Changed To: Hospital Disposition Of: Inpatient - Admit Certification Admit to Inpatient:: After my assessment, the patient will require hospitalization for at least two midnights. This is because of the severity of symptoms shown, intensity of services needed, and/or the medical risk in this patient being treated as an outpatient. - POA Present On Arrival: None
--- NOTE | 2018-03-12 15:33 | CT ---
Date of service: 03/12/2018 PROCEDURE: CT HEAD WITHOUT CONTRAST. HISTORY: AMS COMPARISON: None available. TECHNIQUE: Axial computed tomography images were obtained through the head/brain without intravenous contrast. Radiation dose: Total exam DLP = 1152.05 mGy-cm. This CT exam was performed using one or more of the following dose reduction techniques: Automated exposure control, adjustment of the mA and/or kV according to patient size, and/or use of iterative reconstruction technique. FINDINGS: HEMORRHAGE: No intracranial hemorrhage. BRAIN: There are mild chronic microangiopathic changes. There is no mass, mass effect or abnormal extra-axial fluid collection. There is no territorial infarction. The midline sagittal structures are normal. There are coarse atherosclerotic calcifications in the cavernous carotid arteries. VENTRICLES: There is moderate age-related global parenchymal volume loss and proportionate enlargement of the ventricles and cortical sulci. CALVARIUM: Unremarkable. PARANASAL SINUSES: Predominantly clear. MASTOID AIR CELLS: Predominantly clear. OTHER FINDINGS: None. IMPRESSION: No acute intracranial abnormality. Mild chronic microangiopathic changes and moderate age-related global parenchymal volume loss.
[2018-03-12] MEDS ORDERED: Iohexol 300 100 ML IJ ONE (15:42)
[2018-03-12] MEDS ORDERED: Sodium Chloride 0.9% 50 ML IV ONE (15:42)
[2018-03-12 16:22] LABS: GRANULAR CAST 13 /lpf (0-1); SQUAMOUS EPITHIAL 2 /hpf (0-5); URINE BACTERIA FEW (<OCC); URINE BILIRUBIN NEGATIVE (NEGATIVE); URINE BLOOD MODERATE (NEGATIVE); URINE CLARITY CLOUDY (Clear); URINE COLOR AMBER (YELLOW); URINE GLUCOSE (UA) NEG (Normal); URINE HYALINE CAST >20 /hpf (0-2); URINE LEUKOCYTE ESTERASE NEG Leu/uL (Negative); URINE PROTEIN 100 mg/dL (NEGATIVE)
[2018-03-12] MEDS ORDERED: cefTRIAXone (Rocephin) 1 gm Inj ONE (17:08)
--- NOTE | 2018-03-12 17:34 | CT ---
Date of service: 03/12/2018 PROCEDURE: CT Abdomen and Pelvis with contrast HISTORY: Jaundice COMPARISON: None. TECHNIQUE: CT scan of the abdomen and pelvis was performed after administration of intravenous contrast. Oral contrast was not administered. Coronal and sagittal reformatted images were obtained. Contrast dose: 95 mL Omnipaque 300 Radiation dose: Total exam DLP = mGy-cm. This CT exam was performed using one or more of the following dose reduction techniques: Automated exposure control, adjustment of the mA and/or kV according to patient size, and/or use of iterative reconstruction technique. FINDINGS: LOWER THORAX: There are moderate bilateral pleural effusions, larger on the right. LIVER: Mild hepatomegaly and diffuse fatty liver. No gross lesion or ductal dilatation. GALLBLADDER AND BILE DUCTS: There is a small gallstone. PANCREAS: Normal in size with homogeneous enhancement. No gross lesion or ductal dilatation. SPLEEN: Normal in size and appearance. ADRENALS: No discrete nodule. KIDNEYS AND URETERS: Normal in size with homogeneous enhancement. No hydronephrosis. No solid mass. VASCULATURE: No aortic aneurysm. BOWEL: Unremarkable. No obstruction. No gross mural thickening. APPENDIX: Normal appendix. PERITONEUM: There is moderate abdominal and pelvic ascites. No free air. LYMPH NODES: No enlarged lymph nodes. BLADDER: Decompressed. REPRODUCTIVE: Unremarkable. BONES: No acute fracture. Advanced multilevel degenerative disc disease. OTHER FINDINGS: There is diffuse anasarca. IMPRESSION: 1. Moderate pleural effusions, larger on the right, moderate abdominal and pelvic ascites and diffuse anasarca. 2. Mild hepatomegaly. Fatty liver. 3. Sigmoid diverticulosis without CT evidence for acute diverticulitis. Of a
[2018-03-13] MEDS ORDERED: Magnesium Hydroxide Susp 30 ml UD PO PRN (01:35)
[2018-03-13] MEDS: Dextrose 5%/0.45% NS 1,000 ML IV SCH ×2 (01:39→17:59)
[2018-03-13] MEDS: Albuterol-Ipratrop 3 mg / 0.5 (3 ml) UD INH SCH ×4 (01:44→19:16)
[2018-03-13 06:22] LABS: HEMOGLOBIN 12.7 g/dL (12.0-18.0); MEAN CELL VOLUME 94.5 fl (80.0-94.0); MEAN CORPUSCULAR HEMOGLOBIN 30.6 pg (27.0-31.0); MEAN CORPUSCULAR HGB CONC 32.4 g/dL (33.0-37.0); RBC 4.13 Mil/uL (4.40-5.90); WHITE BLOOD COUNT 4.4 K/uL (4.8-10.8)
[2018-03-13 06:50] LABS: ALT/SGPT 64 U/L (21-72); AST/SGOT 62 U/L (17-59); BLOOD UREA NITROGEN 22 mg/dl (9-20); CALCIUM 8.6 mg/dL (8.4-10.2); GFR AFRICAN-AMERICAN > 60; GFR NON-AFRICAN AMERICAN > 60
[2018-03-13] MEDS: Omega-3-Acid Ethyl Esters 1 GM Cap PO SCH ×2 (09:08→21:08)
[2018-03-13 11:50] LABS: HEPATITIS B SURFACE AG Negative (NEGATIVE)
[2018-03-13 11:55] LABS: HEPATITIS A IGM NEGATIVE (NEGATIVE); HEPATITIS B CORE AB NEGATIVE (NEGATIVE)
[2018-03-13 12:07] LABS: HEPATITIS C ANTIBODY NEGATIVE (NEGATIVE)
--- NOTE | 2018-03-13 12:36 | CARD ---
APPROVED REPORT Date of service: 03/12/2018 EKG Measurement Heart [id number] <Conclusion> Wide QRS rhythm with frequent premature ventricular complexes Left bundle branch block Abnormal ECG
--- NOTE | 2018-03-13 16:20 | CP.PCM.HP ---
History of Present Illness - History of Present Illness History of Present Illness: CC: AMS. 77 y/o M with significant chronic medical history, including: CVA, Hepatitis A & B, CHF, AICD, COPD, sent from [facility] to ER [facility] on 03/12/18 to be evaluated for altered baseline mental status associated to increased confusion, forgetfulness, disoriented, slurred speech, weaknesses, also jaundice, elevated bilirubin and Liver enzymes, blood test (pos) for Hep A and B . Pt fell in AM DOA while in the NH, Pt was evaluated in the ER, no pain, no trauma, but with no change in medical condition and was admitted to Telemetry. Worsening symptoms: Jaundice appearance. Aggravated factor: Poor historian. U/A high for RBC, Bacteria and Hyaline Casts Denied: Fever, chills, n/v/d, abdominal pain, CP, numbness, SOB, cough, sick contact. Abd/Pelv CT showed: Moderate pleural effusion, larger on the right, moderate abdominal and pelvic ascites and diffused anasarca. Mild hepatomegaly, fatty liver, Sigmoid Diverticulosis. CXR: Increased pulmonary venous congestion compare to previous study. Cardiomegaly. EKG: Wide QRS rhythm with frequents PVC, L BBB. Present on Admission - Present on Admission Any Indicators Present on Admission: No Review of Systems - Review of Systems Systems not reviewed;Unavailable: Acuity of Condition, Altered Mental Status Past Patient History - Past Medical History & Family History Past Medical History?: Yes Pertinent Family History: Unknown - Past Social History Smoking Status: Former Smoker Alcohol: None Drugs: Denies Home Situation {Lives}: [facility] - CARDIAC Hx Cardiac Disorders: Yes Hx Congestive Heart Failure: Yes Hx Hypercholesterolemia: Yes Hx Hypertension: Yes Hx Pacemaker: Yes - PULMONARY Hx Respiratory Disorders: Yes Hx Chronic Obstructive Pulmonary Disease (COPD): Yes - NEUROLOGICAL Hx Neurological Disorder: No Hx Dementia: Yes - HEENT Hx HEENT Problems: No - RENAL Hx Chronic Kidney Disease: No - ENDOCRINE/METABOLIC Hx Endocrine Disorders: No - HEMATOLOGICAL/ONCOLOGICAL Hx Blood Disorders: Yes Hx Hepatitis A: Yes Hx Hepatitis B: Yes - INTEGUMENTARY Hx Dermatological Problems: No - MUSCULOSKELETAL/RHEUMATOLOGICAL Hx Musculoskeletal Disorders: Yes Hx Back Pain: Yes Hx Falls: Yes Hx Osteoarthritis: Yes - GASTROINTESTINAL Hx Gastrointestinal Disorders: No - GENITOURINARY/GYNECOLOGICAL Hx Genitourinary Disorders: Yes Hx Prostate Problems: Yes - PSYCHIATRIC Hx Psychophysiologic Disorder: Yes Hx Anxiety: Yes - SURGICAL HISTORY Hx Surgeries: Yes Hx Tonsillectomy: Yes - ANESTHESIA Hx Anesthesia: Yes Hx Anesthesia Reactions: No Hx Malignant Hyperthermia: No Meds Home Medications: Home Medication List Medication Instructions Recorded Confirmed Type [id number] 1 gm [Rocephin 1 gram 1 gm IVPB DAILY #7 bag 03/14/18 Rx IVPB] Allergies/Adverse Reactions: Allergies Allergy/AdvReac Type Severity Reaction Status Date / Time No Known Allergies Allergy Verified 03/12/18 14:17 Physical Exam - Constitutional Appears: Confused, Chronically Ill - Head Exam Head Exam: NORMAL INSPECTION - Eye Exam Eye Exam: PERRL - ENT Exam ENT Exam: Normal Exam - Neck Exam Neck exam: Positive for: Normal Inspection - Respiratory Exam Respiratory Exam: Decreased Breath Sounds - Cardiovascular Exam Cardiovascular Exam: REGULAR RHYTHM Additional comments: AICD - GI/Abdominal Exam GI & Abdominal Exam: Normal Bowel Sounds, Soft - Extremities Exam Additional comments: R-L TKR, legs edema - Back Exam Back exam: NORMAL INSPECTION - Neurological Exam Additional comments: Awake, confused, slurred speech, generalized weakness - Psychiatric Exam Psychiatric exam: Anxious - Skin Skin Exam: Pallor, Warm Additional comments: jaundice Results - Vital Signs Recent Vital Signs: Last Vital Signs Temp 97.4 F L 03/13/18 16:04 Pulse 100 H 03/13/18 16:04 Resp 18 03/13/18 16:04 BP 101/65 03/13/18 16:04 Pulse Ox 97 03/13/18 16:04 reviewed Dora - Labs Result Diagrams: 03/25/18 05:00 03/25/18 05:00 Labs: Laboratory Results - last 24 hr 03/12/18 03/12/18 03/13/18 15:54 21:45 05:30 WBC 4.4 L RBC 4.13 L Hgb 12.7 Hct 39.0 MCV 94.5 H MCH 30.6 MCHC 32.4 L RDW 21.0 H Plt Count 149 Sodium Potassium Chloride Carbon Dioxide Anion Gap BUN Creatinine Est GFR ( Amer) Est GFR (Non-Af Amer) POC Glucose (mg/dL) 72 Random Glucose Calcium Total Bilirubin AST ALT Alkaline Phosphatase Total Protein Albumin Globulin Albumin/Globulin Ratio Vitamin B12 Urine Color Mary Urine Clarity Cloudy Urine pH 5.0 Ur Specific [place] 1.023 Urine Protein 100 Urine Glucose (UA) Neg Urine Ketones Negative Urine Blood Moderate Urine Nitrate Negative Urine Bilirubin Negative Urine Urobilinogen 2.0 Ur Leukocyte Esterase Neg Urine RBC (Auto) 15 H Urine Microscopic WBC < 1 Ur Squamous Epith Cells 2 Urine Bacteria Few H Hyaline Casts >20 H Granular Casts (Auto) 13 Hepatitis A IgM Ab Hep Bs Antigen Hep B Core IgM Ab Hepatitis C Antibody 03/13/18 03/13/18 03/13/18 05:30 05:30 11:30 WBC RBC Hgb Hct MCV MCH MCHC RDW Plt Count Sodium 134 Potassium 4.4 Chloride 102 Carbon Dioxide 19 L Anion Gap 17 BUN 22 H Creatinine 0.8 Est GFR ( Amer) > 60 Est GFR (Non-Af Amer) > 60 POC Glucose (mg/dL) Random Glucose 90 Calcium 8.6 Total Bilirubin 1.6 H AST 62 H D ALT 64 Alkaline Phosphatase 112 Total Protein 6.1 L Albumin 3.0 L Globulin 3.0 Albumin/Globulin Ratio 1.0 Vitamin B12 734 Urine Color Urine Clarity Urine pH Ur Specific [place] Urine Protein Urine Glucose (UA) Urine Ketones Urine Blood Urine Nitrate Urine Bilirubin Urine Urobilinogen Ur Leukocyte Esterase Urine RBC (Auto) Urine Microscopic WBC Ur Squamous Epith Cells Urine Bacteria Hyaline Casts Granular Casts (Auto) Hepatitis A IgM Ab Negative Hep Bs Antigen Negative Hep B Core IgM Ab Negative Hepatitis C Antibody Negative reviewed J.P. - EKG Data EKG comments: reviewed J.P. - Imaging and Cardiology Chest x-ray Status: Report reviewed by me (BradlyP.) CT scan - abdomen Status: Report reviewed by me (JAlexP.) CT scan - pelvis Status: Report reviewed by me (J.P.) Assessment & Plan (1) Altered mental status Status: Acute Priority: High (2) UTI (urinary tract infection) Status: Acute Priority: High (3) Difficulty with speech Status: Chronic Priority: High (4) AICD (automatic cardioverter/defibrillator) present Status: Chronic (5) CAD (coronary artery disease) Status: Chronic Priority: Medium (6) Generalized weakness Status: Chronic Priority: High (7) CHF (congestive heart failure) Status: Chronic Priority: High (8) COPD (chronic obstructive pulmonary disease) Status: Chronic (9) Anxiety Status: Chronic Priority: Medium (10) Jaundice Status: Acute Priority: High - Assessment and Plan (Free Text) Plan: Continue Rocephin, Coreg, ASA, Lipitor, Duoneb, Plavix and rest of Tx, Neurology consult for evaluation mental status, Acute Hepatitis Panel negative, ID consult for evaluation of jaundice - Date & Time Date: 03/13/18 Time: 09:30
[2018-03-13 16:40] LABS: FOLATE 9.7 ng/mL
--- NOTE | 2018-03-13 17:43 | CP.PCM.CON ---
History of Present Illness - History of Present Illness History of Present Illness: 77 y/o male with a PMHx of hepatitis A and B sent from [facility] for evaluation of jaundice. Patient at baseline which is altered. Past Patient History - Past Medical History & Family History Past Medical History?: Yes - Past Social History Smoking Status: Former Smoker - CARDIAC Hx Congestive Heart Failure: Yes Hx Hypertension: Yes Hx Pacemaker: Yes - PULMONARY Hx Chronic Obstructive Pulmonary Disease (COPD): Yes - NEUROLOGICAL Hx Neurological Disorder: No - HEENT Hx HEENT Problems: No - RENAL Hx Chronic Kidney Disease: No - ENDOCRINE/METABOLIC Hx Endocrine Disorders: No - HEMATOLOGICAL/ONCOLOGICAL Hx Blood Disorders: Yes Hx Hepatitis A: Yes Hx Hepatitis B: Yes - INTEGUMENTARY Hx Dermatological Problems: No - MUSCULOSKELETAL/RHEUMATOLOGICAL Hx Musculoskeletal Disorders: Yes Hx Back Pain: Yes Hx Falls: Yes Hx Osteoarthritis: Yes - GASTROINTESTINAL Hx Gastrointestinal Disorders: No - GENITOURINARY/GYNECOLOGICAL Hx Genitourinary Disorders: Yes Hx Prostate Problems: Yes - PSYCHIATRIC Hx Anxiety: Yes - SURGICAL HISTORY Hx Tonsillectomy: Yes - ANESTHESIA Hx Anesthesia: Yes Hx Anesthesia Reactions: No Hx Malignant Hyperthermia: No Meds Allergies/Adverse Reactions: Allergies Allergy/AdvReac Type Severity Reaction Status Date / Time No Known Allergies Allergy Verified 03/12/18 14:17 - Medications Medications: Current Medications Acetaminophen (Tylenol 325mg Tab) 650 mg PO Q4 PRN PRN Reason: Pain, Mild (1-3) Albuterol/Ipratropium (Duoneb 3 Mg/0.5 Mg (3 Ml) Ud) 3 ml INH RQ6 [facility] Last Admin: 03/13/18 13:51 Dose: 3 ml Aspirin (Ecotrin) 81 mg PO QPM [facility] Atorvastatin Calcium (Lipitor) 40 mg PO HS [facility] Bisacodyl (Dulcolax) 10 mg [place] DAILY PRN PRN Reason: No bowel movement x3days Carvedilol (Coreg) 12.5 mg PO BID [facility] Last Admin: 03/13/18 09:10 Dose: Not Given Clopidogrel Bisulfate (Plavix) 75 mg PO DAILY [facility] Last Admin: 03/13/18 09:10 Dose: Not Given Ceftriaxone Sodium 1 gm/ (Sodium Chloride) 100 mls @ 100 mls/hr IVPB DAILY [facility] PRN Reason: Protocol Last Admin: 03/13/18 09:09 Dose: 100 mls/hr Dextrose/Sodium Chloride (Dextrose 5%/0.45% Ns 1000 Ml) 1,000 mls @ 80 mls/hr IV .[id number] [facility] Stop: 03/14/18 01:30 Last Admin: 03/13/18 01:39 Dose: 80 mls/hr Magnesium Hydroxide (Milk Of Magnesia) 30 ml PO HS PRN PRN Reason: No bowel movement x2 days Msufr-7-Etgr Ethyl Esters (Lovaza) 1 gm PO Q12 [facility] Last Admin: 03/13/18 09:08 Dose: Not Given Tamsulosin HCl (Flomax) 0.4 mg PO QPM [facility] Results - Vital Signs Recent Vital Signs: Last Vital Signs Temp 97.4 F L 03/13/18 16:04 Pulse 100 H 03/13/18 16:04 Resp 18 03/13/18 16:04 BP 101/65 03/13/18 16:04 Pulse Ox 97 03/13/18 16:04 - Labs Result Diagrams: 03/13/18 05:30 03/13/18 05:30 Labs: Laboratory Results - last 24 hr 03/12/18 03/13/18 03/13/18 21:45 05:30 05:30 WBC 4.4 L RBC 4.13 L Hgb 12.7 Hct 39.0 MCV 94.5 H MCH 30.6 MCHC 32.4 L RDW 21.0 H Plt Count 149 Sodium 134 Potassium 4.4 Chloride 102 Carbon Dioxide 19 L Anion Gap 17 BUN 22 H Creatinine 0.8 Est GFR ( Amer) > 60 Est GFR (Non-Af Amer) > 60 POC Glucose (mg/dL) 72 Random Glucose 90 Calcium 8.6 Total Bilirubin 1.6 H AST 62 H D ALT 64 Alkaline Phosphatase 112 Total Protein 6.1 L Albumin 3.0 L Globulin 3.0 Albumin/Globulin Ratio 1.0 Vitamin B12 Folate Hepatitis A IgM Ab Hep Bs Antigen Hep B Core IgM Ab Hepatitis C Antibody 03/13/18 03/13/18 05:30 11:30 WBC RBC Hgb Hct MCV MCH MCHC RDW Plt Count Sodium Potassium Chloride Carbon Dioxide Anion Gap BUN Creatinine Est GFR ( Amer) Est GFR (Non-Af Amer) POC Glucose (mg/dL) Random Glucose Calcium Total Bilirubin AST ALT Alkaline Phosphatase Total Protein Albumin Globulin Albumin/Globulin Ratio Vitamin B12 734 Folate 9.7 Hepatitis A IgM Ab Negative Hep Bs Antigen Negative Hep B Core IgM Ab Negative Hepatitis C Antibody Negative
[2018-03-14] MEDS: Albuterol-Ipratrop 3 mg / 0.5 (3 ml) UD INH SCH ×4 (01:06→19:06)
[2018-03-14] MEDS: Omega-3-Acid Ethyl Esters 1 GM Cap PO SCH ×2 (09:04→21:58)
[2018-03-14] MEDS ORDERED: Albuterol-Ipratrop 3 mg / 0.5 (3 ml) UD INH STA (11:00)
[2018-03-14] MEDS: Dextrose 5%/0.45% NS 1,000 ML IV SCH (16:46)
--- NOTE | 2018-03-14 17:22 | CP.PCM.PN ---
Subjective - Date & Time of Evaluation Date of Evaluation: 03/14/18 Time of Evaluation: 17:17 - Subjective Subjective: I D NOTE PATIENT EXAMINED ,HAVE STARTED [employer] WORKUP Objective - Vital Signs/Intake and Output Vital Signs (last 24 hours): Temp Pulse Resp BP Pulse Ox 97.9 F 98 H 20 91/65 L 100 03/14/18 16:18 03/14/18 16:18 03/14/18 16:18 03/14/18 16:18 03/14/18 16:18 - Medications Medications: Current Medications Acetaminophen (Tylenol 325mg Tab) 650 mg PO Q4 PRN PRN Reason: Pain, Mild (1-3) Albuterol/Ipratropium (Duoneb 3 Mg/0.5 Mg (3 Ml) Ud) 3 ml INH RQ6 [facility] Last Admin: 03/14/18 13:34 Dose: 3 ml Aspirin (Ecotrin) 81 mg PO QPM [facility] Last Admin: 03/13/18 17:55 Dose: 81 mg Atorvastatin Calcium (Lipitor) 40 mg PO HS [facility] Last Admin: 03/13/18 21:09 Dose: 40 mg Bisacodyl (Dulcolax) 10 mg [place] DAILY PRN PRN Reason: No bowel movement x3days Carvedilol (Coreg) 12.5 mg PO BID [facility] Last Admin: 03/14/18 16:04 Dose: Not Given Clopidogrel Bisulfate (Plavix) 75 mg PO DAILY [facility] Last Admin: 03/14/18 09:04 Dose: 75 mg Ceftriaxone Sodium 1 gm/ (Sodium Chloride) 100 mls @ 100 mls/hr IVPB DAILY [facility] PRN Reason: Protocol Last Admin: 03/14/18 09:05 Dose: 100 mls/hr Dextrose/Sodium Chloride (Dextrose 5%/0.45% Ns 1000 Ml) 1,000 mls @ 80 mls/hr IV .[id number] [facility] Stop: 03/15/18 16:29 Last Admin: 03/14/18 16:46 Dose: 80 mls/hr Magnesium Hydroxide (Milk Of Magnesia) 30 ml PO HS PRN PRN Reason: No bowel movement x2 days Aaipm-6-[id number] Ethyl Esters (Lovaza) 1 gm PO Q12 [facility] Last Admin: 03/14/18 09:04 Dose: 1 gm Tamsulosin HCl (Flomax) 0.4 mg PO QPM [facility] Last Admin: 03/13/18 17:55 Dose: 0.4 mg - Labs Labs: 03/13/18 05:30 03/13/18 05:30 PT 26.3 Seconds (9.8-13.1) H 03/12/18 14:53 INR 2.3 (0.9-1.2) H 03/12/18 14:53 APTT 30.9 Seconds (25.6-37.1) 03/12/18 14:53
--- NOTE | 2018-03-14 18:17 | CP.PCM.PN ---
Subjective - Subjective Subjective: confused, speech slightly slurred Objective - Vital Signs/Intake and Output Vital Signs (last 24 hours): Temp Pulse Resp BP Pulse Ox 97.9 F 98 H 20 91/65 L 100 03/14/18 16:18 03/14/18 16:18 03/14/18 16:18 03/14/18 16:18 03/14/18 16:18 - Medications Medications: Current Medications Acetaminophen (Tylenol 325mg Tab) 650 mg PO Q4 PRN PRN Reason: Pain, Mild (1-3) Albuterol/Ipratropium (Duoneb 3 Mg/0.5 Mg (3 Ml) Ud) 3 ml INH RQ6 [facility] Last Admin: 03/14/18 13:34 Dose: 3 ml Aspirin (Ecotrin) 81 mg PO QPM [facility] Last Admin: 03/14/18 18:08 Dose: 81 mg Atorvastatin Calcium (Lipitor) 40 mg PO HS [facility] Last Admin: 03/13/18 21:09 Dose: 40 mg Bisacodyl (Dulcolax) 10 mg [place] DAILY PRN PRN Reason: No bowel movement x3days Carvedilol (Coreg) 12.5 mg PO BID [facility] Last Admin: 03/14/18 16:04 Dose: Not Given Clopidogrel Bisulfate (Plavix) 75 mg PO DAILY [facility] Last Admin: 03/14/18 09:04 Dose: 75 mg Ceftriaxone Sodium 1 gm/ (Sodium Chloride) 100 mls @ 100 mls/hr IVPB DAILY [facility] PRN Reason: Protocol Last Admin: 03/14/18 09:05 Dose: 100 mls/hr Dextrose/Sodium Chloride (Dextrose 5%/0.45% Ns 1000 Ml) 1,000 mls @ 80 mls/hr IV .[id number] [facility] Stop: 03/15/18 16:29 Last Admin: 03/14/18 16:46 Dose: 80 mls/hr Magnesium Hydroxide (Milk Of Magnesia) 30 ml PO HS PRN PRN Reason: No bowel movement x2 days Flsow-5-Wvpd Ethyl Esters (Lovaza) 1 gm PO Q12 [facility] Last Admin: 03/14/18 09:04 Dose: 1 gm Tamsulosin HCl (Flomax) 0.4 mg PO QPM [facility] Last Admin: 03/14/18 18:08 Dose: 0.4 mg - Labs Labs: 03/13/18 05:30 07/26/18 05:30 PT 26.3 Seconds (9.8-13.1) H 03/12/18 14:53 INR 2.3 (0.9-1.2) H 03/12/18 14:53 APTT 30.9 Seconds (25.6-37.1) 03/12/18 14:53 - Constitutional Appears: Chronically Ill - Head Exam Head Exam: NORMAL INSPECTION - Eye Exam Eye Exam: PERRL - ENT Exam ENT Exam: Normal Oropharynx - Respiratory Exam Respiratory Exam: Decreased Breath Sounds (at bases) - Cardiovascular Exam Cardiovascular Exam: REGULAR RHYTHM - GI/Abdominal Exam GI & Abdominal Exam: Normal Bowel Sounds - Extremities Exam Extremities Exam: Pedal Edema (leg edema, R L TKR) - Back Exam Back Exam: NORMAL INSPECTION - Neurological Exam Additional comments: speech slightly slurred, generalized weakness , no focal motor deficit - Psychiatric Exam Psychiatric exam: Anxious - Skin Skin Exam: Pallor Additional comments: jaundice Assessment and Plan (1) Altered mental status Status: Acute (2) UTI (urinary tract infection) Status: Acute (3) Difficulty with speech Status: Acute (4) CAD (coronary artery disease) Status: Chronic (5) Generalized weakness Status: Chronic (6) Anxiety Status: Chronic (7) Jaundice Status: Acute (8) AICD (automatic cardioverter/defibrillator) present Status: Chronic (9) CHF (congestive heart failure) Status: Chronic (10) COPD (chronic obstructive pulmonary disease) Status: Acute - Assessment and Plan (Free Text) Plan: continue Rocephin, DuoNeb, Plavix , PT and rest of treatment, Neurology and ID consult appreciated, f/u U C-S and inmunologic work up
[2018-03-15] MEDS: Albuterol-Ipratrop 3 mg / 0.5 (3 ml) UD INH SCH ×4 (01:25→19:07)
[2018-03-15 07:56] LABS: T4 5.69 ug/dl (5.5-11.0)
[2018-03-15 08:10] LABS: T3 0.314 nmol/L (1.49-2.60)
[2018-03-15] MEDS: Dextrose 5%/0.45% NS 1,000 ML IV SCH (08:44)
[2018-03-15] MEDS: Omega-3-Acid Ethyl Esters 1 GM Cap PO SCH ×2 (08:45→21:02)
[2018-03-15 11:00] LABS: COMPLEMENT C4 20.8 mg/dL (14.0-44.0)
[2018-03-15 12:34] LABS: IMMUNOGLOBULIN A 477.8 mg/dL (70.0-400.0); IMMUNOGLOBULIN M 50.6 mg/dL (40.0-230.0)
--- NOTE | 2018-03-15 16:35 | CARD ---
APPROVED REPORT Date of service: 03/15/2018 EKG Measurement Heart [id number] <Conclusion> Wide QRS rhythm with occasional premature ventricular complexes Left bundle branch block Abnormal ECG
--- NOTE | 2018-03-15 17:51 | CP.PCM.PN ---
Subjective - Date & Time of Evaluation Date of Evaluation: 03/15/18 Time of Evaluation: 16:10 - Subjective Subjective: F/U AMS Pt awake, no c/o, confused, forgetful. Objective - Vital Signs/Intake and Output Vital Signs (last 24 hours): Temp Pulse Resp BP Pulse Ox 96.1 F L 95 H 18 93/60 L 96 03/15/18 16:00 03/15/18 17:34 03/15/18 16:00 03/15/18 17:34 03/15/18 16:00 - Medications Medications: Current Medications Acetaminophen (Tylenol 325mg Tab) 650 mg PO Q4 PRN PRN Reason: Pain, Mild (1-3) Albuterol/Ipratropium (Duoneb 3 Mg/0.5 Mg (3 Ml) Ud) 3 ml INH RQ6 [facility] Last Admin: 03/15/18 13:35 Dose: Not Given Aspirin (Ecotrin) 81 mg PO QPM [facility] Last Admin: 03/15/18 17:39 Dose: 81 mg Atorvastatin Calcium (Lipitor) 40 mg PO HS [facility] Last Admin: 03/14/18 21:58 Dose: 40 mg Bisacodyl (Dulcolax) 10 mg [place] DAILY PRN PRN Reason: No bowel movement x3days Carvedilol (Coreg) 12.5 mg PO BID [facility] Last Admin: 03/15/18 17:34 Dose: Not Given Clopidogrel Bisulfate (Plavix) 75 mg PO DAILY [facility] Last Admin: 03/15/18 08:45 Dose: 75 mg Ceftriaxone Sodium 1 gm/ (Sodium Chloride) 100 mls @ 100 mls/hr IVPB DAILY [facility] PRN Reason: Protocol Last Admin: 03/15/18 08:44 Dose: 100 mls/hr Magnesium Hydroxide (Milk Of Magnesia) 30 ml PO HS PRN PRN Reason: No bowel movement x2 days Mxrfn-2-Mylf Ethyl Esters (Lovaza) 1 gm PO Q12 [facility] Last Admin: 03/15/18 08:45 Dose: 1 gm Tamsulosin HCl (Flomax) 0.4 mg PO QPM [facility] Last Admin: 03/15/18 17:39 Dose: 0.4 mg - Labs Labs: 03/13/18 05:30 03/13/18 05:30 PT 26.3 Seconds (9.8-13.1) H 03/12/18 14:53 INR 2.3 (0.9-1.2) H 03/12/18 14:53 APTT 30.9 Seconds (25.6-37.1) 03/12/18 14:53 - Constitutional Appears: Chronically Ill - Head Exam Head Exam: NORMAL INSPECTION - Eye Exam Eye Exam: PERRL - ENT Exam ENT Exam: Normal Oropharynx - Neck Exam Neck Exam: Normal Inspection - Respiratory Exam Respiratory Exam: Decreased Breath Sounds (at bases) - Cardiovascular Exam Cardiovascular Exam: REGULAR RHYTHM - GI/Abdominal Exam GI & Abdominal Exam: Soft, Normal Bowel Sounds - Extremities Exam Extremities Exam: Pedal Edema Additional comments: R L TKR - Back Exam Back Exam: NORMAL INSPECTION - Neurological Exam Neurological Exam: Awake Additional comments: Speech slightly slurred, generalized weakness, no focal motor deficit. - Psychiatric Exam Psychiatric exam: Anxious - Skin Skin Exam: Warm Additional comments: Jaundice Assessment and Plan (1) Altered mental status Status: Acute (2) UTI (urinary tract infection) Status: Acute (3) Difficulty with speech Status: Acute (4) History of permanent cardiac pacemaker placement Status: Chronic (5) CAD (coronary artery disease) Status: Chronic (6) Generalized weakness Status: Chronic (7) Anxiety Status: Chronic (8) Jaundice Status: Acute - Assessment and Plan (Free Text) Plan: Continue Rocephin, Duoneb, ASA, Lipitor, Plavix and rest of Tx. Cardiology consult.
[2018-03-16] MEDS: Albuterol-Ipratrop 3 mg / 0.5 (3 ml) UD INH SCH ×3 (07:48→19:29)
[2018-03-16] MEDS: Omega-3-Acid Ethyl Esters 1 GM Cap PO SCH ×2 (09:42→21:04)
--- NOTE | 2018-03-16 13:25 | CP.PCM.PN ---
Subjective - Date & Time of Evaluation Date of Evaluation: 03/16/18 Time of Evaluation: 13:15 - Subjective Subjective: F/U AMS/UTI awake, oriented to person, no AD, refusing to eat , as per nurse at bedside Objective - Vital Signs/Intake and Output Vital Signs (last 24 hours): Temp Pulse Resp BP Pulse Ox 97.8 F 105 H 20 92/65 L 100 03/16/18 12:00 03/16/18 12:00 03/16/18 12:00 03/16/18 12:00 03/16/18 12:00 - Medications Medications: Current Medications Acetaminophen (Tylenol 325mg Tab) 650 mg PO Q4 PRN PRN Reason: Pain, Mild (1-3) Albuterol/Ipratropium (Duoneb 3 Mg/0.5 Mg (3 Ml) Ud) 3 ml INH RQ6 [facility] Last Admin: 03/16/18 07:48 Dose: 3 ml Aspirin (Ecotrin) 81 mg PO QPM [facility] Last Admin: 03/15/18 17:39 Dose: 81 mg Atorvastatin Calcium (Lipitor) 40 mg PO HS [facility] Last Admin: 03/15/18 21:02 Dose: 40 mg Bisacodyl (Dulcolax) 10 mg [place] DAILY PRN PRN Reason: No bowel movement x3days Carvedilol (Coreg) 12.5 mg PO BID [facility] Last Admin: 03/16/18 09:42 Dose: Not Given Clopidogrel Bisulfate (Plavix) 75 mg PO DAILY [facility] Last Admin: 03/16/18 09:45 Dose: 75 mg Ceftriaxone Sodium 1 gm/ (Sodium Chloride) 100 mls @ 100 mls/hr IVPB DAILY [facility] PRN Reason: Protocol Last Admin: 03/15/18 08:44 Dose: 100 mls/hr Magnesium Hydroxide (Milk Of Magnesia) 30 ml PO HS PRN PRN Reason: No bowel movement x2 days Grwnp-3-Ofic Ethyl Esters (Lovaza) 1 gm PO Q12 [facility] Last Admin: 03/16/18 09:42 Dose: Not Given Tamsulosin HCl (Flomax) 0.4 mg PO QPM [facility] Last Admin: 03/15/18 17:39 Dose: 0.4 mg - Labs Labs: 03/13/18 05:30 03/13/18 05:30 PT 26.3 Seconds (9.8-13.1) H 07/25/18 14:53 INR 2.3 (0.9-1.2) H 03/12/18 14:53 APTT 30.9 Seconds (25.6-37.1) 03/12/18 14:53 - Constitutional Appears: No Acute Distress, Chronically Ill - Head Exam Head Exam: NORMAL INSPECTION - Eye Exam Eye Exam: Normal appearance - ENT Exam ENT Exam: Normal Oropharynx - Neck Exam Neck Exam: Normal Inspection - Respiratory Exam Respiratory Exam: Decreased Breath Sounds (at bases) - Cardiovascular Exam Cardiovascular Exam: REGULAR RHYTHM Additional comments: PPM - GI/Abdominal Exam GI & Abdominal Exam: Soft, Normal Bowel Sounds - Extremities Exam Extremities Exam: Pedal Edema (legs) Additional comments: R-L TKR - Back Exam Back Exam: NORMAL INSPECTION - Neurological Exam Neurological Exam: Awake Additional comments: oriented to person, Speech slightly slurred, generalized weakness, no focal motor deficit. - Psychiatric Exam Psychiatric exam: Anxious - Skin Additional comments: Jaundice Assessment and Plan (1) Altered mental status Status: Acute (2) UTI (urinary tract infection) Status: Acute (3) Difficulty with speech Status: Acute (4) CAD (coronary artery disease) Status: Chronic (5) Generalized weakness Status: Chronic (6) Anxiety Status: Chronic (7) Jaundice Status: Acute (8) AICD (automatic cardioverter/defibrillator) present Status: Chronic (9) CHF (congestive heart failure) Status: Chronic (10) COPD (chronic obstructive pulmonary disease) Status: Acute - Assessment and Plan (Free Text) Plan: Patient is refusing to eat,confused , swallowing eval in am , f/u blood work in am, continue Rocephin, DuoNeb and rest of treatment
[2018-03-16] MEDS ORDERED: Propofol 10 mg/ml 1,000 MG/100 ML VIAL ONE (16:06)
[2018-03-16] MEDS ORDERED: Propofol 10 mg/ml Inj (20 ML) IV ONE (16:08)
[2018-03-16] MEDS ORDERED: Midazolam 2 MG/2 ML VIAL ONE (16:08)
[2018-03-16] MEDS ORDERED: Midazolam 50 MG in Sodium Chloride 0.9% 50 ML IV ONE (16:08)
[2018-03-16 16:09] LABS: BASO % 0.5 % (0.0-2.0); EOS % 0.2 % (0.0-4.0); HEMOGLOBIN 12.8 g/dL (12.0-18.0); LYMPH # 1.3 K/uL (1.0-4.3); LYMPH % 16.6 % (20.0-40.0); MEAN CELL VOLUME 96.8 fl (80.0-94.0); MEAN CORPUSCULAR HEMOGLOBIN 31.1 pg (27.0-31.0); MEAN CORPUSCULAR HGB CONC 32.2 g/dL (33.0-37.0); MEAN PLATELET VOLUME 8.8 fl (7.2-11.7); MONO # 0.6 K/uL (0.0-0.8); MONO % 8.1 % (0.0-10.0); NEUT # 5.6 K/uL (1.8-7.0); NEUT % 74.6 % (50.0-75.0); NRBC % 0.6 % (0.0-0.0); RBC 4.1 Mil/uL (4.40-5.90); RED CELL DISTRIBUTION WIDTH 21.5 % (11.5-14.5); WHITE BLOOD COUNT 7.5 K/uL (4.8-10.8)
[2018-03-16] MEDS ORDERED: Midazolam 2 MG/2 ML VIAL IV ONE (16:12)
[2018-03-16] MEDS ORDERED: Sodium Chloride 0.9% 1,000 ML IV SCH (16:15)
[2018-03-16 16:19] LABS: ALT/SGPT 291 U/L (21-72); AST/SGOT 444 U/L (17-59); BLOOD UREA NITROGEN 23 mg/dl (9-20); CALCIUM 8.4 mg/dL (8.4-10.2); GFR AFRICAN-AMERICAN > 60; GFR NON-AFRICAN AMERICAN > 60
--- NOTE | 2018-03-16 16:19 | PCM.ANES ---
Anesthesia Emergent Intubation - Diagnosis Working Diagnosis:: Respiratory Failure - Consult Reason for Consult:: Respiratory Failure, patient obtunded - Intubation Attempts Previous Number of Intubation Attempts:: 0 Level Of Consciousness: Lethargic, Somnolent, Unable to follow directions - Airway Management Oropharyngeal Area Suctioned: Yes (blood clots, red blood noted in back of throat, uncertain of source) - Method of Intubation Intubation Method: Oral ETT ETT Size: 7.5 Lipline@: 23 Easy: Yes Atramatic: Yes - Intubation Devices Abena Blade Size Used: 4 Srini Forcepts Used: No Emelle Scope Used: No Fiber Optic Scope: No - Placement Confirmation Breath Sounds Present & Equal Bilaterally: Yes Gurgling Sounds Not Audible at Epigastrum: Yes Positive EtCO2: Yes Recommendations: Ventilator, Chest X Ray, ABG - Post-Intubation Vital Signs Blood Pressure: 102/60 Heart Rate: 95 O2 Sat: 96
[2018-03-16 16:32] LABS: INR 2.9 (0.9-1.2); PARTIAL THROMBOPLASTIN TIME 38.8 Seconds (25.6-37.1); PROTHROMBIN TIME 32.9 Seconds (9.8-13.1)
--- NOTE | 2018-03-16 16:32 | CP.PCM.PN ---
Subjective - Date & Time of Evaluation Date of Evaluation: 03/16/18 Time of Evaluation: 16:30 - Subjective Subjective: I D NOTE TRANSFERED TO I C U BECOMING OBTUNDED LFTs increasingadd adijusted dose of clindamycin Objective - Vital Signs/Intake and Output Vital Signs (last 24 hours): Temp Pulse Resp BP Pulse Ox 97.8 F 105 H 20 92/65 L 100 03/16/18 12:00 03/16/18 12:00 03/16/18 12:00 03/16/18 12:00 03/16/18 12:00 - Medications Medications: Current Medications Acetaminophen (Tylenol 325mg Tab) 650 mg PO Q4 PRN PRN Reason: Pain, Mild (1-3) Albuterol/Ipratropium (Duoneb 3 Mg/0.5 Mg (3 Ml) Ud) 3 ml INH RQ6 ON LICENSE OF [facility] Last Admin: 03/16/18 13:45 Dose: 3 ml Atorvastatin Calcium (Lipitor) 40 mg PO HS EU[facility] Last Admin: 03/15/18 21:02 Dose: 40 mg Bisacodyl (Dulcolax) 10 mg [place] DAILY PRN PRN Reason: No bowel movement x3days Carvedilol (Coreg) 12.5 mg PO BID ON LICENSE OF [facility] Last Admin: 03/16/18 09:42 Dose: Not Given Ceftriaxone Sodium 1 gm/ (Sodium Chloride) 100 mls @ 100 mls/hr IVPB DAILY EUGENIO PRN Reason: Protocol Last Admin: 03/16/18 13:31 Dose: 100 mls/hr Sodium Chloride (Sodium Chloride 0.9%) 1,000 mls @ 999 mls/hr IV .Q1H1M ON LICENSE OF [facility] Stop: 03/17/18 16:10 Midazolam HCl 50 mg/ Sodium (Chloride) 100 mls @ 4 mls/hr IV .Q24H ONE; 2 MG/HR PRN Reason: Protocol Stop: 03/17/18 16:29 Clindamycin in NS (Clindamycin 300 Mg/50 Ml-Ns) 300 mg in 50 mls @ 50 mls/hr IVPB Q12 EU[facility] PRN Reason: Protocol Magnesium Hydroxide (Milk Of Magnesia) 30 ml PO HS PRN PRN Reason: No bowel movement x2 days [id number] Ethyl Esters (Lovaza) 1 gm PO Q12 [facility] Last Admin: 03/16/18 09:42 Dose: Not Given Tamsulosin HCl (Flomax) 0.4 mg PO QPM [facility] Last Admin: 03/15/18 17:39 Dose: 0.4 mg - Labs Labs: 03/16/18 16:00 03/16/18 16:00 PT 26.3 Seconds (9.8-13.1) H 03/12/18 14:53 INR 2.3 (0.9-1.2) H 03/12/18 14:53 APTT 30.9 Seconds (25.6-37.1) 03/12/18 14:53
[2018-03-16] MEDS ORDERED: Phytonadione 10 mg/ml Inj (Adult) IV ONE (16:48)
[2018-03-16 16:52] LABS: ABG ALLEN TEST YES; ARTERIAL BLOOD GAS HCO3 17.1 mmol/L (21-28); ARTERIAL BLOOD GAS O2 SAT 88.3 % (95-98); ARTERIAL BLOOD GAS PCO2 45 mm/Hg (35-45); ARTERIAL BLOOD GAS PH 7.21 (7.35-7.45); ARTERIAL BLOOD GAS PO2 65 mm/Hg (80-100); ARTERIAL BLOOD GAS TCO2 19.4 mmol/L (22-28)
--- NOTE | 2018-03-16 16:55 | RAD ---
Date of service: 03/16/2018 PROCEDURE: CHEST RADIOGRAPH, 1 VIEW HISTORY: hemoptysis COMPARISON: Chest radiograph dated 03/12/2018 FINDINGS: LUNGS: Pulmonary vascular congestion. PLEURA: Small bilateral pleural effusions. CARDIOVASCULAR: Left subclavian access AICD/ pacemaker redemonstrated. Atherosclerotic aortic calcifications. Cardiomediastinal silhouette stably enlarged. OSSEOUS STRUCTURES: Unchanged. VISUALIZED UPPER ABDOMEN: Normal. OTHER FINDINGS: New endotracheal tube with tip between the clavicles and kailee. New enteric tube with tip in the stomach. IMPRESSION: New endotracheal and enteric tubes in satisfactory position. Worsening pulmonary vascular congestion with development of small bilateral pleural effusions.
[2018-03-16] MEDS ORDERED: Phytonadione 10 mg/ml Inj (Adult) IVPB ONE (17:00)
--- NOTE | 2018-03-16 17:24 | PCM.RRT ---
AIRPLANE WOODWORKER Nurse Assessment - Ventilator Settings Mode: prvc ac Ventilator Respiratory Rate Settin Ventilator Tidal Volume Settin PEEP/CPAP (cm H2O): 5 Pressure Support: 0 SAO2 %: 100 FIO2 (% Oxygen): 60 I.Reason for AIRPLANE WOODWORKER - A) Acute Change in Patient: (Select all that apply): Acute change in mental status, Acute change in SpO2 less Subjective: AIRPLANE WOODWORKER Call Time: 15:39 AIRPLANE WOODWORKER Arrival Time: 15:40 AIRPLANE WOODWORKER Location: Telemetry 403-1 S: AIRPLANE WOODWORKER was called by RN on a 77 y/o male due to aggravating dyspnea, inability to obtain Sat O2 measurements, and altered mental status. Nurse reports that pt became more dyspneic today. BP has been in the 90s/60s range. Pt under Dr Mueller management. As AIRPLANE WOODWORKER team was evaluating the patient, blood was observed on suctioning catheter when only placed superficially on oral cavity. O: --VS: HR 111, BP 87/60, Temp 97.5 F --Physical Exam: >GEN: Pt not awake, altered mental status, non-responsive to verbal or tactile stimulation. >HEENT: normocephalic, non-traumatic, PERRL, presence of blood clots on posterior oropharynx. >CV: S1 and S2 present, tachycardic. >LUNGS: Crackles present diffusively >EXT: no edema or cyanosis, faint pulses of DP and PT bilaterally. >SKIN: Pale and cold to touch on whole body. AIRPLANE WOODWORKER Interventions: -Position of patient in bed was optimized. -Rogerio-pharynx secretions were suctioned, bloody mucus and clots were present. -IV Fluids started, NS bolus. -Blood analysis ordered: CBC, CMP, coagulation profile, troponin, pro-BNP, amonia, ABG-chock panel, lactic acid. -Due to patient inability to protect airways, general anesthesia was contacted for mechanical intubation. -Pt transferred to ICU. -2 units of PRBC's were ordered. -CXR ordered. -Propofol and Midazolam were administered during intubation. -Dr Mueller, primary care doctor, was contacted and made aware. -General Surgery team contacted for urgent central IV access. -As results from ordered labs were available, 2 units FFP's and IV Vitamin k were ordered. A/P: 77 y/o male with a PMHx of CVA, CHF, Hepatitis A&B, COPD was admitted for altered mental status and transaminitis. AIRPLANE WOODWORKER called due to dyspnea and altered mental status. Pt had an episode bleeding with source not identified, possibly upper airways, upper GI, naso-pharyngeal origin. --ENT consult. --Gastroenterology consult. --Continue VS and cardiac monitoring. --If BP decreases, consider Levophed. --F/U on labwork. --Continue management as per ICU team. AIRPLANE WOODWORKER End Time: 16:49 AIRPLANE WOODWORKER Leader: Jeri Petty; Bradly Moeller AIRPLANE WOODWORKER Residents: Dr Hernández PGY-3; Dr Redi PGY-2
--- NOTE | 2018-03-16 17:47 | CP.PCM.CON ---
History of Present Illness - History of Present Illness History of Present Illness: General Surgery - DR. Loredo 77M w/ extensive medical hx including CVA, CHF, Hepatitis A&B, COPD, sent from long term for altered mental status, weakness, and elevated liver enzymes. Pt was evaluated by his primary doctor, Dr. Mueller, in the ED and reportedly had no acute changes from baseline other than worsening jaundice. He was admitted to telemetry on 03/12, and since had been seen and evaluated by Neurology. He had a CT Abdomen/pelvis done which showed moderate b/l pleural effusions, ascites and diffuse anasarca. Pt had remained stable on the telemetry floor until today when MANAGER PAID was called for worsening mental status and hemoptysis. Pt was intubated for airway protection and reportedly approx. 200cc of blood suctioned from the airway during the event. He was transferred to ICU and since arrival his blood pressure has remained low in the 70s-80s systolic despite IVF boluses. General Surgery was consulted for Central Line placement. Review of Systems - Review of Systems All systems: reviewed and no additional remarkable complaints except (as per HPI ) Past Patient History - Past Medical History & Family History Past Medical History?: Yes - Past Social History Smoking Status: Former Smoker Alcohol: None Drugs: Denies Home Situation {Lives}: [facility] - CARDIAC Hx Cardiac Disorders: Yes Hx Congestive Heart Failure: Yes Hx Hypercholesterolemia: Yes Hx Hypertension: Yes Hx Pacemaker: Yes - PULMONARY Hx Respiratory Disorders: Yes Hx Chronic Obstructive Pulmonary Disease (COPD): Yes - NEUROLOGICAL Hx Neurological Disorder: No Hx Dementia: Yes - HEENT Hx HEENT Problems: No - RENAL Hx Chronic Kidney Disease: No - ENDOCRINE/METABOLIC Hx Endocrine Disorders: No - HEMATOLOGICAL/ONCOLOGICAL Hx Blood Disorders: Yes Hx Hepatitis A: Yes Hx Hepatitis B: Yes - INTEGUMENTARY Hx Dermatological Problems: No - MUSCULOSKELETAL/RHEUMATOLOGICAL Hx Musculoskeletal Disorders: Yes Hx Back Pain: Yes Hx Falls: Yes Hx Osteoarthritis: Yes - GASTROINTESTINAL Hx Gastrointestinal Disorders: No - GENITOURINARY/GYNECOLOGICAL Hx Genitourinary Disorders: Yes Hx Prostate Problems: Yes - PSYCHIATRIC Hx Psychophysiologic Disorder: Yes Hx Anxiety: Yes - SURGICAL HISTORY Hx Surgeries: Yes Hx Tonsillectomy: Yes - ANESTHESIA Hx Anesthesia: Yes Hx Anesthesia Reactions: No Hx Malignant Hyperthermia: No Meds Home Medications: Home Medication List Medication Instructions Recorded Confirmed Type cefTRIAXone 1 gm [Rocephin 1 gram 1 gm IVPB DAILY #7 bag 03/14/18 Rx IVPB] Allergies/Adverse Reactions: Allergies Allergy/AdvReac Type Severity Reaction Status Date / Time No Known Allergies Allergy Verified 03/12/18 14:17 - Medications Medications: Current Medications Acetaminophen (Tylenol 325mg Tab) 650 mg PO Q4 PRN PRN Reason: Pain, Mild (1-3) Albuterol/Ipratropium (Duoneb 3 Mg/0.5 Mg (3 Ml) Ud) 3 ml INH RQ6 [facility] Last Admin: 03/16/18 13:45 Dose: 3 ml Atorvastatin Calcium (Lipitor) 40 mg PO HS [facility] Last Admin: 03/15/18 21:02 Dose: 40 mg Bisacodyl (Dulcolax) 10 mg [place] DAILY PRN PRN Reason: No bowel movement x3days Carvedilol (Coreg) 12.5 mg PO BID [facility] Last Admin: 03/16/18 16:47 Dose: Not Given Ceftriaxone Sodium 1 gm/ (Sodium Chloride) 100 mls @ 100 mls/hr IVPB DAILY EUGENIO PRN Reason: Protocol Last Admin: 03/16/18 13:31 Dose: 100 mls/hr Sodium Chloride (Sodium Chloride 0.9%) 1,000 mls @ 999 mls/hr IV .Q1H1M [facility] Stop: 03/17/18 16:10 Last Admin: 03/16/18 16:45 Dose: 999 mls/hr Midazolam HCl 50 mg/ Sodium (Chloride) 100 mls @ 4 mls/hr IV .Q24H ONE; 2 MG/HR PRN Reason: Protocol Stop: 03/17/18 16:29 Last Admin: 03/16/18 16:49 Dose: 4 mls/hr Clindamycin in NS (Clindamycin 300 Mg/50 Ml-Ns) 300 mg in 50 mls @ 50 mls/hr IVPB Q12 EUGENIO PRN Reason: Protocol Magnesium Hydroxide (Milk Of Magnesia) 30 ml PO HS PRN PRN Reason: No bowel movement x2 days Kexng-4-Cbdm Ethyl Esters (Lovaza) 1 gm PO Q12 [facility] Last Admin: 03/16/18 09:42 Dose: Not Given Oxymetazoline HCl (Nasal Decongestant 15 Ml) 1 spr NS Q12 PRN PRN Reason: Nasal congestion Last Admin: 03/16/18 16:47 Dose: 1 spr Tamsulosin HCl (Flomax) 0.4 mg PO QPM EU[facility]IO Last Admin: 03/15/18 17:39 Dose: 0.4 mg Physical Exam - Constitutional Appears: No Acute Distress - Head Exam Head Exam: ATRAUMATIC, NORMOCEPHALIC - Eye Exam Eye Exam: Normal appearance - Respiratory Exam Additional comments: intubated, on vent - Cardiovascular Exam Cardiovascular Exam: REGULAR RHYTHM - Neurological Exam Additional comments: sedated on propofol - Skin Skin Exam: Dry, Intact Results - Vital Signs Recent Vital Signs: Last Vital Signs Temp 97.8 F 03/16/18 12:00 Pulse 97 H 03/16/18 16:47 Resp 20 03/16/18 12:00 BP 81/63 L 03/16/18 16:47 Pulse Ox 100 03/16/18 12:00 - Labs Result Diagrams: 03/16/18 16:00 03/16/18 16:00 Labs: Laboratory Results - last 24 hr 03/16/18 03/16/18 03/16/18 16:00 16:00 16:00 WBC 7.5 D RBC 4.10 L Hgb 12.8 Hct 39.7 MCV 96.8 H D MCH 31.1 H MCHC 32.2 L RDW 21.5 H Plt Count 139 MPV 8.8 Neut % (Auto) 74.6 Lymph % (Auto) 16.6 L [place] % (Auto) 8.1 Eos % (Auto) 0.2 Baso % (Auto) 0.5 Neut # (Auto) 5.6 Lymph # (Auto) 1.3 [place] # (Auto) 0.6 Eos # (Auto) 0.0 Baso # (Auto) 0.0 PT 32.9 H INR 2.9 H APTT 38.8 H pCO2 pO2 HCO3 ABG pH ABG Total CO2 ABG O2 Saturation ABG Base Excess Chris Test ABG Potassium A-a O2 Difference Glucose Lactate Vent Mode Mechanical Rate FiO2 Tidal Volume PEEP Sodium 131 L Potassium 5.1 H Chloride 100 Carbon Dioxide 18 L Anion Gap 18 BUN 23 H Creatinine 1.0 Est GFR ( Amer) > 60 Est GFR (Non-Af Amer) > 60 Random Glucose 97 Lactic Acid Calcium 8.4 Total Bilirubin 1.7 H AST 444 H D ALT 291 H D Alkaline Phosphatase 121 Ammonia Troponin I NT-Pro-B Natriuret Pep Total Protein 6.0 L Albumin 3.0 L Globulin 3.1 Albumin/Globulin Ratio 1.0 Arterial Blood Potassium 03/16/18 03/16/18 03/16/18 16:00 16:02 16:22 WBC RBC Hgb Hct MCV MCH MCHC RDW Plt Count MPV Neut % (Auto) Lymph % (Auto) [place] % (Auto) Eos % (Auto) Baso % (Auto) Neut # (Auto) Lymph # (Auto) [place] # (Auto) Eos # (Auto) Baso # (Auto) PT INR APTT pCO2 pO2 HCO3 ABG pH ABG Total CO2 ABG O2 Saturation ABG Base Excess Chris Test ABG Potassium A-a O2 Difference Glucose Lactate Vent Mode Mechanical Rate FiO2 Tidal Volume PEEP Sodium Potassium Chloride Carbon Dioxide Anion Gap BUN Creatinine Est GFR ( Amer) Est GFR (Non-Af Amer) Random Glucose Lactic Acid Calcium Total Bilirubin AST ALT Alkaline Phosphatase Ammonia 18 D Troponin I < 0.0120 NT-Pro-B Natriuret Pep 15941 H Total Protein Albumin Globulin Albumin/Globulin Ratio Arterial Blood Potassium 03/16/18 03/16/18 16:22 16:49 WBC RBC Hgb Hct MCV MCH MCHC RDW Plt Count MPV Neut % (Auto) Lymph % (Auto) [place] % (Auto) Eos % (Auto) Baso % (Auto) Neut # (Auto) Lymph # (Auto) [place] # (Auto) Eos # (Auto) Baso # (Auto) PT INR APTT pCO2 45 pO2 65 L HCO3 17.1 L ABG pH 7.21 L ABG Total CO2 19.4 L ABG O2 Saturation 88.3 L ABG Base Excess -9.7 L Chris Test Yes ABG Potassium 4.6 A-a O2 Difference 307.0 Glucose 93 Lactate 2.7 H Vent Mode A/c Mechanical Rate 12 FiO2 60.0 Tidal Volume 500 PEEP 5 Sodium 128.0 L Potassium Chloride 100.0 Carbon Dioxide Anion Gap BUN Creatinine Est GFR ( Amer) Est GFR (Non-Af Amer) Random Glucose Lactic Acid 3.4 H Calcium Total Bilirubin AST ALT Alkaline Phosphatase Ammonia Troponin I NT-Pro-B Natriuret Pep Total Protein Albumin Globulin Albumin/Globulin Ratio Arterial Blood Potassium 4.6 Assessment & Plan - Assessment and Plan (Free Text) Assessment: 77yo M w/ extensive medical history, s/p MANAGER PAID for hemoptysis, intubated and hypotensive in ICU -Transfuse FFP for INR 2.9 -Will place central line for pressors -Continue care as per ICU DW Dr. Facundo Jim PGY4 Central Line Placement - Central Line Placement Indication: Unable To Obtain Adequate Peripheral Access (Vasopressor requirements) Central Line Placement: Right: Internal Jugular (Informed Consent obtained from ) The Area Was Thoroughly Prepared With: Chlorhexidine, Draped Using Sterile Technique Area Was Locally Anesthetized With: Lidocaine 1% Procedure: Triple Lumen, Placed Using Standard Seldinger Technique, Catheter Was Sewn Into Place, Sterile Dressing Placed Over Line, Procedure Tolerated Well , CXR Ordered To Confirm Placement
[2018-03-16] MEDS: Pantoprazole 40 MG in Sodium Chloride 0.9% 100 ML IVPB SCH (20:50)
[2018-03-16] MEDS: Clindamycin in NS 300 MG/50 ML BAG IVPB SCH (21:06)
[2018-03-16 23:58] LABS: HEMOGLOBIN 10.7 g/dL (12.0-18.0); MEAN CELL VOLUME 95.5 fl (80.0-94.0); MEAN CORPUSCULAR HEMOGLOBIN 31.9 pg (27.0-31.0); MEAN CORPUSCULAR HGB CONC 33.4 g/dL (33.0-37.0); RBC 3.37 Mil/uL (4.40-5.90); RED CELL DISTRIBUTION WIDTH 20.4 % (11.5-14.5); WHITE BLOOD COUNT 6.4 K/uL (4.8-10.8)
[2018-03-17 00:07] LABS: INR 2.3 (0.9-1.2); PARTIAL THROMBOPLASTIN TIME 38.5 Seconds (25.6-37.1); PROTHROMBIN TIME 25.5 Seconds (9.8-13.1)
[2018-03-17 00:12] LABS: ALB/GLOB RATIO 0.9 (1.0-2.1); ALBUMIN 2.5 g/dL (3.5-5.0); ALT/SGPT 209 U/L (21-72); AST/SGOT 290 U/L (17-59); BLOOD UREA NITROGEN 20 mg/dl (9-20); CALCIUM 7.8 mg/dL (8.4-10.2); GFR AFRICAN-AMERICAN > 60; GFR NON-AFRICAN AMERICAN > 60
[2018-03-17 00:38] LABS: ABG ALLEN TEST YES; ARTERIAL BLOOD GAS HCO3 21.2 mmol/L (21-28); ARTERIAL BLOOD GAS HEMOGLOBIN 11.2 g/dL (11.7-17.4); ARTERIAL BLOOD GAS O2 CAPACITY 15.7 mL/dL (16-24); ARTERIAL BLOOD GAS O2 CONTENT 15.7 ML/dL (15-23); ARTERIAL BLOOD GAS O2 SAT 99.7 % (95-98); ARTERIAL BLOOD GAS PCO2 32 mm/Hg (35-45); ARTERIAL BLOOD GAS PH 7.39 (7.35-7.45); ARTERIAL BLOOD GAS PO2 186 mm/Hg (80-100); ARTERIAL BLOOD GAS TCO2 20.4 mmol/L (22-28)
[2018-03-17] MEDS ORDERED: Sodium Chloride 0.9% 1,000 ML IV SCH (01:00)
[2018-03-17] MEDS: Pantoprazole 40 MG in Sodium Chloride 0.9% 100 ML IVPB SCH ×5 (01:04→21:14)
[2018-03-17] MEDS: Albuterol-Ipratrop 3 mg / 0.5 (3 ml) UD INH SCH ×4 (01:09→19:20)
[2018-03-17 05:15] LABS: ABG ALLEN TEST YES; ARTERIAL BLOOD GAS HCO3 20.9 mmol/L (21-28); ARTERIAL BLOOD GAS HEMOGLOBIN 11.1 g/dL (11.7-17.4); ARTERIAL BLOOD GAS O2 CAPACITY 15.9 mL/dL (16-24); ARTERIAL BLOOD GAS O2 CONTENT 15.8 ML/dL (15-23); ARTERIAL BLOOD GAS O2 SAT 99.5 % (95-98); ARTERIAL BLOOD GAS PCO2 37 mm/Hg (35-45); ARTERIAL BLOOD GAS PH 7.34 (7.35-7.45); ARTERIAL BLOOD GAS PO2 239 mm/Hg (80-100); ARTERIAL BLOOD GAS TCO2 21.1 mmol/L (22-28)
--- NOTE | 2018-03-17 05:41 | PN ---
PROCEDURE DATE: 03/16/2018 CRITICAL CARE PROGRESS NOTE LOCATION: The patient in room 432. TIME SPENT: 45 minutes. SUBJECTIVE: The patient is seen and evaluated at the bedside. Discussed with PMD, Dr. Mike Mueller. Past medical, surgical, social, and family history reviewed. Mr. Scott is a 77-year-old male, a nonsmoker, non-EtOH user with a history significant for two-vessel moderate coronary artery disease as per cardiac cath in 06/2017, involving right coronary and distal left main, status post TIA a month ago, noted carotid artery stenosis. He has a permanent pacemaker insertion done years ago. The patient is also status post bilateral knee replacement. He had multiple falls. He currently lives in half-way, reportedly had multiple falls. Recent CAT scan of the head showed no acute BATTERY TESTER FIELD event. The patient was admitted through emergency room on 03/12/2018 after he was found to have a change in his baseline mental status associated with increased confusion, forgetfulness, and disoriented. The patient's workup in half-way reportedly showed abnormal LFTs with possible positive hepatitis B; however, he was admitted here and the hepatis panel came back as negative. ID is evaluating the patient for possible autoimmune hepatitis. His recent cath showed moderately mild reduction in EF, estimated around 45% to 50%. This morning, the patient was noted to become increasingly lethargic. PARACHUTE HARNESS RIGGER was called, noted the patient to be hypotensive with jaundice appearance, breathing from mouth, brought to intensive care unit, intubated and placed on mechanical ventilation. While intubating, the patient was noted to have large blood _ as per Anesthesia. Awaiting for ENT and GI evaluation to revaluate source of bleeding. CURRENT MEDICATIONS: Include Tylenol 650 p.o. every 4 hours, albuterol inhalation 3 mL via nebulizer every 6 hours, Lipitor 40 mg daily, Dulcolax 10 mg per rectum daily, Coreg 12.5 mg p.o. b.i.d., ceftriaxone 1 g IV daily, clindamycin 300 mg IV every 12 hours, Milk of Magnesia 30 mL at bedtime, aspirin 81 mg daily, Plavix 75 mg daily, Lovenox 40 mg subcu daily, [place] [employer]-3 of 1 g p.o. every 12 hours, Flomax 0.4 mg daily. ALLERGY: NONE DOCUMENTED. FAMILY HISTORY: Noncontributory. SOCIAL HISTORY: Nonsmoker, non-EtOH user. PHYSICAL EXAMINATION: GENERAL: Elderly moderately obese male, orally intubated, mechanically ventilated, on AC 12, 500, FiO2 100%, PEEP of 5. Observed rate 12, exhaled tidal volume 550, minute ventilation 5.5 L, oxygen saturation 100%, end tidal CO2 of 23. VITAL SIGNS: Temperature 97.8, heart rate 97, blood pressure 92/65 with mean 74. Intake, output to be documented. HEAD, EYE, EAR, NOSE, AND THROAT: Pupils are reactive. Conjunctivae pink. Sclerae muddy. Endotracheal tube in place. Coffee-ground secretion noted in the endotracheal tube. NG tube with coffee ground material. Examination of mouth shows old dried blood. Oral mucosa dry. CHEST: Bilateral breath sounds. Pacemaker in place. Clear to auscultation anteriorly and laterally. HEART: Rhythm regular. S1, S2 normal. ABDOMEN: Bowel sounds present. Soft. Liver and spleen not palpable. Bladder not distended. Scrotum with edema. EXTREMITIES: With 1+ edema. DP palpable. Capillary refill less than 2 seconds. NEUROLOGIC: Sedated, on Versed drip. LABORATORY DATA: WBC 7.5, hemoglobin 12.8, hematocrit 39.7, platelet count 139, neutrophil 74.6, lymphocyte 16.6, monocyte 8.1. PT 32.9, INR 2.9, PTT 38.8. SMA-7: Sodium 131, potassium 5.1, chloride 100, CO2 of 18, blood urea nitrogen 23, creatinine 1, random glucose 97, lactic acid 3.4, calcium 8.4. Total bilirubin 1.7, AST 444, ALT 291, alkaline phosphatase 121, ammonia 18. Troponin less than 0.012. ProBNP 22,400. Total protein 6 and albumin 3. Repeat potassium 4.6. Urinalysis: Leukocyte esterase negative, rbc 15, wbc less than 1, bacteria few, hyaline cast more than 20. Immunology: IgG 1071, IgA 477.8, IgM 50.6, C3 of 16, complement C4 of 20.8. Hepatitis A IgM negative. Hepatitis B surface antigen negative. Hepatitis B core IgM antibody negative. Hepatitis C antibody negative. Microbiology: None reported. Chest x-ray: Post-intubation, endotracheal tube in place, NG tube in place. Left subclavian AICD, permanent pacemaker present. Atherosclerotic aortic calcification. Endotracheal tube between the clavicle and the kailee. NG tube in the stomach. Worsening pulmonary vascular congestion with small bilateral pleural effusion. IMPRESSION AND PLAN: 1. Neurologic: Altered mental status, history of previous transient ischemic attack, possible septic metabolic encephalopathy, abnormal liver function test with elevated bilirubin, workup in progress, on Versed drip to facilitate mechanical ventilation. 2. Pulmonary: Intubated for airway protection secondary to the blood noted in the mouth. Suspect aspiration of blood and/or the gastric content. Antibiotics, on clindamycin and ceftriaxone. 3. Cardiac: History of moderate two-vessel coronary artery disease, status post carotid artery stenosis, on aspirin and Plavix, discontinued secondary to the bleeding. 4. Gastrointestinal: Abnormal liver function test with elevated bilirubin, suspect hepatitis, etiology unclear. Gastrointestinal workup in progress. CT abdomen and pelvis showed moderate ascites and scrotal edema. Gastrointestinal consult requested for further evaluation. 5. Renal: No electrolyte abnormalities noted. Repeat potassium is 4.6, on intravenous hydration, cautiously__ given low ejection fraction. 6. Infectious Disease: Suspect aspiration of gastric contents and/or the blood. Keep the head of bed 30 degrees up, nasogastric tube or orogastric tube in place. Transfuse as needed. 7. Hematology: Stable hemoglobin, hematocrit, and platelet count. Hold aspirin and Plavix secondary to the gastrointestinal bleed. Transfuse 2 units of fresh frozen plasma. Vitamin K 10 mg intravenous x1 given. 8. Endocrine: No history of hypo or hyperthyroidism or diabetes mellitus. 9. 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 Keep the head of bed 30 degrees up. 10. Orogastric tube to monitor for further bleeding from stomach. Chen in place for adequate intake and output. 11. Deep venous thrombosis, with mechanical device, sequential compression device. Hold anticoagulation secondary to bleeding. 12. Status post bilateral knee replacement, stable. David Garner MD MTDD
[2018-03-17] MEDS: Sodium Chloride 0.9% 1,000 ML IV SCH (06:06)
[2018-03-17 06:16] LABS: HEMOGLOBIN 10.6 g/dL (12.0-18.0); MEAN CELL VOLUME 94.8 fl (80.0-94.0); MEAN CORPUSCULAR HEMOGLOBIN 31.2 pg (27.0-31.0); RBC 3.4 Mil/uL (4.40-5.90); WHITE BLOOD COUNT 6.7 K/uL (4.8-10.8)
[2018-03-17 06:21] LABS: ALB/GLOB RATIO 0.9 (1.0-2.1); ALBUMIN 2.3 g/dL (3.5-5.0); ALT/SGPT 192 U/L (21-72); AST/SGOT 255 U/L (17-59); BLOOD UREA NITROGEN 20 mg/dl (9-20); CALCIUM 7.7 mg/dL (8.4-10.2); GFR AFRICAN-AMERICAN > 60; GFR NON-AFRICAN AMERICAN > 60
--- NOTE | 2018-03-17 07:43 | RAD ---
Date of service: 03/17/2018 HISTORY: vented COMPARISON: Portable chest 03/07/2018 9:46 a.m.. FINDINGS: Stable endotracheal and nasogastric tubes with permanent cardiac pacemaker/ AICD and right center venous line also unchanged in overall appearance. LUNGS: The images captured in the late expiratory phase of the respiratory cycle. Haziness at the bilateral mid to inferior lung zones suggests likely worsening of left pleural effusion and likely also at the right. Underlying airspace disease not excluded. No pneumothorax bilaterally. CARDIOVASCULAR: Pulmonary vascular congestion pattern remains suggested. OSSEOUS STRUCTURES: No significant abnormalities. VISUALIZED UPPER ABDOMEN: Normal. OTHER FINDINGS: None. IMPRESSION: Mild increase in bilateral pleural effusions with underlying airspace disease not excluded bilaterally. CHF unchanged. Study is compromised by image captured late expiratory phase. Continued clinical and radiographic monitoring advised bilaterally.
--- NOTE | 2018-03-17 08:05 | RAD ---
Date of service: 03/16/2018 HISTORY: central line COMPARISON: Portable chest 03/16/2018 4:14 p.m.. FINDINGS: In the interval, a E right center venous lines in place by an apparent internal jugular approach with the tip turning at the cavoatrial junction. Endotracheal tube is unchanged in position. Maintains tube does not appear significantly changed in position and pacemaker/AICD also unchanged grossly. LUNGS: Limited right perihilar airspace disease not completely excluded. None is seen at the left. PLEURA: Small bilateral pleural effusions remain questioned. No pneumothorax bilaterally. CARDIOVASCULAR: Stable cardiac silhouette with mild pulmonary vascular congestion present. OSSEOUS STRUCTURES: No significant abnormalities. VISUALIZED UPPER ABDOMEN: Normal. OTHER FINDINGS: None. IMPRESSION: Mild pulmonary vascular congestion with limited right perihilar patchy density not completely excluded. Small bilateral pleural effusions persist. Right central venous line in position with no pneumothorax apparent. Remaining catheters unchanged as well as pacemaker/AICD.
[2018-03-17] MEDS: Clindamycin in NS 300 MG/50 ML BAG IVPB SCH ×2 (08:07→20:41)
[2018-03-17] MEDS: Omega-3-Acid Ethyl Esters 1 GM Cap PO SCH ×2 (08:08→20:41)
[2018-03-17] MEDS: Albumin Human 25% (12.5 gm/50 ml) IV SCH ×8 (11:41→21:22)
[2018-03-17] MEDS ORDERED: Phenylephrine 10 mg/ml Inj ONE (12:24)
[2018-03-17] MEDS ORDERED: Phenylephrine 60 MG in Sodium Chloride 0.9% 250 ML IV SCH (12:30)
--- NOTE | 2018-03-17 16:04 | CP.CCUPN ---
CCU Subjective - Physician Review Events Since Last Encounter (Free Text): 03/17/18 16:04 sedated on vent. CCU Objective - Vital Signs / Intake & Output Vital Signs (Last 4 hours): Vital Signs Temp Pulse Resp BP Pulse Ox 03/17/18 14:45 97.7 F 78 17 89/56 L 03/17/18 14:00 77 12 94/63 L 100 03/17/18 12:51 76 85/50 L Intake and Output (Last 8hrs): Intake & Output 03/17/18 03/17/18 03/17/18 06:59 14:59 22:59 Intake Total 1536 886 Output Total 400 Balance 1136 886 Weight 216 lb 12.8 oz 216 lb Intake: IV 1200 466 Intake, Piggyback 320 Oral 100 Blood Product 336 Output: Urine 400 Urethral (Benitez) 400 Other: # Bowel Movements 1 - Physical Exam Head: Positive for: Atraumatic, Normocephalic Pupils: Positive for: PERRL, Sluggish Conjunctiva: Positive for: Normal Mouth: Positive for: Moist Mucous Membranes Neck: Positive for: Normal Range of Motion Respiratory/Chest: Positive for: Rales, Rhonchi Cardiovascular: Positive for: Regular Rate and Rhythm Abdomen: Positive for: Normal Bowel Sounds. Negative for: Tenderness, Distention Upper Extremity: Positive for: Normal Inspection Lower Extremity: Positive for: Normal Inspection Psychiatric: Negative for: Alert, Oriented x 3 - Medications Active Medications: Active Medications Generic Name Dose Route Start Last Admin Trade Name Freq PRN Reason Stop Dose Admin Acetaminophen 650 mg 03/13/18 01:35 Tylenol 325mg Tab PO Q4 PRN Pain, Mild (1-3) Albumin Human 12.5 gm 03/17/18 10:45 03/17/18 15:05 Albumin Human 25% (12.5 Gm/50 Ml) IV 03/17/18 17:46 12.5 gm Q1H EUGENIO Administration Albuterol/Ipratropium 3 ml 03/13/18 02:00 03/17/18 13:21 Duoneb 3 Mg/0.5 Mg (3 Ml) Ud INH 3 ml RQ6 EUGENIO Administration Bisacodyl 10 mg 03/13/18 01:35 Dulcolax SD DAILY PRN No bowel movement x3days Furosemide 40 mg 03/17/18 09:00 Lasix IV Q12H EUGENIO Ceftriaxone Sodium 1 gm/ 100 mls @ 100 mls/hr 03/13/18 09:00 03/17/18 12:06 Sodium Chloride IVPB 100 mls/hr DAILY EUGENIO Administration Protocol Sodium Chloride 1,000 mls @ 999 mls/hr 03/16/18 16:15 03/16/18 16:45 Sodium Chloride 0.9% IV 03/17/18 16:10 999 mls/hr .Q1H1M EUGENIO Administration Midazolam HCl 50 mg/ Sodium 100 mls @ 4 mls/hr 03/16/18 16:30 03/16/18 16:49 Chloride IV 03/17/18 16:29 4 mls/hr .Q24H ONE Administration Protocol 2 MG/HR Clindamycin in NS 300 mg in 50 mls @ 50 mls/hr 03/16/18 21:00 03/17/18 08:07 Clindamycin 300 Mg/50 Ml-Ns IVPB 50 mls/hr Q12 EUGENIO Administration Protocol Pantoprazole Sodium 40 mg/ 100 mls @ 100 mls/hr 03/16/18 18:00 03/17/18 14:10 Sodium Chloride IVPB 100 mls/hr Q5H EUGENIO Administration 40 MG/HR Sodium Chloride 1,000 mls @ 75 mls/hr 03/17/18 05:53 03/17/18 06:06 Sodium Chloride 0.9% IV 03/18/18 00:49 75 mls/hr .[id number] EUGENIO Administration Phenylephrine HCl 60 mg/ 256 mls @ 5.11 mls/hr 03/17/18 12:30 03/17/18 13:55 Sodium Chloride IV 03/18/18 12:26 40 mcg/min .Q24H EUGENIO 10.24 mls/hr Protocol Titration 20 MCG/MIN Norepinephrine Bitartrate 16 266 mls @ 2.49 mls/hr 03/17/18 14:23 03/17/18 15 :14 mg/ Dextrose IV 2.49 mls/hr .Q24H EUGENIO Administration 2.5 MCG/MIN Magnesium Hydroxide 30 ml 03/13/18 01:35 Milk Of Magnesia PO HS PRN No bowel movement x2 days Midazolam HCl 2 mg 03/17/18 10:45 Versed Inj IV Q6H PRN Agitation [id number] Ethyl Esters 1 gm 03/13/18 09:00 03/17/18 08:08 Lovaza PO Not Given Q12 EUGENIO Oxymetazoline HCl 1 spr 03/16/18 16:36 03/16/18 16:47 Nasal Decongestant 15 Ml NS 1 spr Q12 PRN Administration Nasal congestion Tamsulosin HCl 0.4 mg 03/13/18 18:00 03/16/18 19:50 Flomax PO Not Given QPM EUGENIO - Patient Studies Lab Studies: Lab Studies 03/17/18 03/17/18 03/17/18 Range/Units 05:26 05:26 05:11 WBC 6.7 (4.8-10.8) K/uL RBC 3.40 L (4.40-5.90) Mil/uL Hgb 10.6 L (12.0-18.0) g/dL Hct 32.2 L (35.0-51.0) % MCV 94.8 H (80.0-94.0) fl MCH 31.2 H (27.0-31.0) pg MCHC 33.0 (33.0-37.0) g/dL RDW 21.0 H (11.5-14.5) % Plt Count 105 L (130-400) K/uL MPV (7.2-11.7) fl Neut % (Auto) (50.0-75.0) % Lymph % (Auto) (20.0-40.0) % Daniels % (Auto) (0.0-10.0) % Eos % (Auto) (0.0-4.0) % Baso % (Auto) (0.0-2.0) % Neut # (Auto) (1.8-7.0) K/uL Lymph # (Auto) (1.0-4.3) K/uL Daniels # (Auto) (0.0-0.8) K/uL Eos # (Auto) (0.0-0.7) K/uL Baso # (Auto) (0.0-0.2) K/uL PT (9.8-13.1) Seconds INR (0.9-1.2) APTT (25.6-37.1) Seconds pCO2 37 (35-45) mm/Hg pO2 239 H (80-100) mm/Hg HCO3 20.9 L (21-28) mmol/L ABG pH 7.34 L (7.35-7.45) ABG Total CO2 21.1 L (22-28) mmol/L ABG O2 Saturation 99.5 H (95-98) % ABG O2 Content 15.8 (15-23) ML/dL ABG Base Excess -5.2 L (-2.0-3.0) mmol/L ABG Hemoglobin 11.1 L (11.7-17.4) g/dL ABG Carboxyhemoglobin 1.1 (0.5-1.5) % POC ABG HHb (Measured) 0.5 (0.0-5.0) % ABG Methemoglobin 1.0 (0.0-3.0) % ABG O2 Capacity 15.9 L (16-24) mL/dL Chris Test Yes ABG Potassium (3.6-5.2) mmol/L A-a O2 Difference 214.0 mm/Hg Hgb O2 Saturation 97.4 (95.0-98.0) % Glucose (75-110) mg/dL Lactate (0.7-2.1) mmol/L Vent Mode A/c Mechanical Rate 12 FiO2 70.0 % Tidal Volume 500 PEEP Sodium 132 (132-148) mmol/l Potassium 4.4 (3.6-5.0) MMOL/L Chloride 104 (98-107) mmol/L Carbon Dioxide 20 L (22-30) mmol/L Anion Gap 12 (10-20) BUN 20 (9-20) mg/dl Creatinine 0.8 (0.8-1.5) mg/dl Est GFR ( Amer) > 60 Est GFR (Non-Af Amer) > 60 Random Glucose 69 L (75-110) mg/dL Lactic Acid (0.7-2.1) MMOL/L Calcium 7.7 L (8.4-10.2) mg/dL Total Bilirubin 1.5 H (0.2-1.3) mg/dl AST 255 H (17-59) U/L ALT 192 H (21-72) U/L Alkaline Phosphatase 91 (38-126) U/L Ammonia (16-60) umo/L Troponin I (0.00-0.120) ng/mL NT-Pro-B Natriuret Pep (0-900) pg/ml Total Protein 4.9 L (6.3-8.2) G/DL Albumin 2.3 L (3.5-5.0) g/dL Globulin 2.6 (2.2-3.9) gm/dL Albumin/Globulin Ratio 0.9 L (1.0-2.1) Arterial Blood Potassium (3.6-5.2) mmol/L IgE (<xr=050) kU/L Blood Type Antibody Screen Crossmatch BBK History Checked 03/17/18 03/16/18 03/16/18 Range/Units 00:33 23:40 23:40 WBC (4.8-10.8) K/uL RBC (4.40-5.90) Mil/uL Hgb (12.0-18.0) g/dL Hct (35.0-51.0) % MCV (80.0-94.0) fl MCH (27.0-31.0) pg MCHC (33.0-37.0) g/dL RDW (11.5-14.5) % Plt Count (130-400) K/uL MPV (7.2-11.7) fl Neut % (Auto) (50.0-75.0) % Lymph % (Auto) (20.0-40.0) % Daniels % (Auto) (0.0-10.0) % Eos % (Auto) (0.0-4.0) % Baso % (Auto) (0.0-2.0) % Neut # (Auto) (1.8-7.0) K/uL Lymph # (Auto) (1.0-4.3) K/uL Daniels # (Auto) (0.0-0.8) K/uL Eos # (Auto) (0.0-0.7) K/uL Baso # (Auto) (0.0-0.2) K/uL PT 25.5 H D (9.8-13.1) Seconds INR 2.3 H D (0.9-1.2) APTT 38.5 H (25.6-37.1) Seconds pCO2 32 L (35-45) mm/Hg pO2 186 H (80-100) mm/Hg HCO3 21.2 (21-28) mmol/L ABG pH 7.39 (7.35-7.45) ABG Total CO2 20.4 L (22-28) mmol/L ABG O2 Saturation 99.7 H (95-98) % ABG O2 Content 15.7 (15-23) ML/dL ABG Base Excess -4.8 L (-2.0-3.0) mmol/L ABG Hemoglobin 11.2 L (11.7-17.4) g/dL ABG Carboxyhemoglobin 1.5 (0.5-1.5) % POC ABG HHb (Measured) 0.3 (0.0-5.0) % ABG Methemoglobin 1.4 (0.0-3.0) % ABG O2 Capacity 15.7 L (16-24) mL/dL Chris Test Yes ABG Potassium (3.6-5.2) mmol/L A-a O2 Difference 487.0 mm/Hg Hgb O2 Saturation 96.9 (95.0-98.0) % Glucose (75-110) mg/dL Lactate (0.7-2.1) mmol/L Vent Mode A/c Mechanical Rate 12 FiO2 100.0 % Tidal Volume 500 PEEP 5 Sodium 131 L (132-148) mmol/l Potassium 4.3 (3.6-5.0) MMOL/L Chloride 103 (98-107) mmol/L Carbon Dioxide 20 L (22-30) mmol/L Anion Gap 12 (10-20) BUN 20 (9-20) mg/dl Creatinine 0.8 (0.8-1.5) mg/dl Est GFR ( Amer) > 60 Est GFR (Non-Af Amer) > 60 Random Glucose 85 (75-110) mg/dL Lactic Acid (0.7-2.1) MMOL/L Calcium 7.8 L (8.4-10.2) mg/dL Total Bilirubin 1.5 H (0.2-1.3) mg/dl AST 290 H D (17-59) U/L ALT 209 H D (21-72) U/L Alkaline Phosphatase 94 (38-126) U/L Ammonia (16-60) umo/L Troponin I (0.00-0.120) ng/mL NT-Pro-B Natriuret Pep (0-900) pg/ml Total Protein 5.2 L (6.3-8.2) G/DL Albumin 2.5 L (3.5-5.0) g/dL Globulin 2.7 (2.2-3.9) gm/dL Albumin/Globulin Ratio 0.9 L (1.0-2.1) Arterial Blood Potassium (3.6-5.2) mmol/L IgE (<sv=931) kU/L Blood Type Antibody Screen Crossmatch BBK History Checked 03/16/18 03/16/18 03/16/18 Range/Units 23:40 23:40 16:49 WBC 6.4 (4.8-10.8) K/uL RBC 3.37 L (4.40-5.90) Mil/uL Hgb 10.7 L D (12.0-18.0) g/dL Hct 32.2 L (35.0-51.0) % MCV 95.5 H (80.0-94.0) fl MCH 31.9 H (27.0-31.0) pg MCHC 33.4 (33.0-37.0) g/dL RDW 20.4 H (11.5-14.5) % Plt Count 104 L D (130-400) K/uL MPV (7.2-11.7) fl Neut % (Auto) (50.0-75.0) % Lymph % (Auto) (20.0-40.0) % Daniels % (Auto) (0.0-10.0) % Eos % (Auto) (0.0-4.0) % Baso % (Auto) (0.0-2.0) % Neut # (Auto) (1.8-7.0) K/uL Lymph # (Auto) (1.0-4.3) K/uL Daniels # (Auto) (0.0-0.8) K/uL Eos # (Auto) (0.0-0.7) K/uL Baso # (Auto) (0.0-0.2) K/uL PT (9.8-13.1) Seconds INR (0.9-1.2) APTT (25.6-37.1) Seconds pCO2 45 (35-45) mm/Hg pO2 65 L (80-100) mm/Hg HCO3 17.1 L (21-28) mmol/L ABG pH 7.21 L (7.35-7.45) ABG Total CO2 19.4 L (22-28) mmol/L ABG O2 Saturation 88.3 L (95-98) % ABG O2 Content (15-23) ML/dL ABG Base Excess -9.7 L (-2.0-3.0) mmol/L ABG Hemoglobin (11.7-17.4) g/dL ABG Carboxyhemoglobin (0.5-1.5) % POC ABG HHb (Measured) (0.0-5.0) % ABG Methemoglobin (0.0-3.0) % ABG O2 Capacity (16-24) mL/dL Chris Test Yes ABG Potassium 4.6 (3.6-5.2) mmol/L A-a O2 Difference 307.0 mm/Hg Hgb O2 Saturation (95.0-98.0) % Glucose 93 (75-110) mg/dL Lactate 2.7 H (0.7-2.1) mmol/L Vent Mode A/c Mechanical Rate 12 FiO2 60.0 % Tidal Volume 500 PEEP 5 Sodium 128.0 L (132-148) mmol/l Potassium (3.6-5.0) MMOL/L Chloride 100.0 (98-107) mmol/L Carbon Dioxide (22-30) mmol/L Anion Gap (10-20) BUN (9-20) mg/dl Creatinine (0.8-1.5) mg/dl Est GFR ( Amer) Est GFR (Non-Af Amer) Random Glucose (75-110) mg/dL Lactic Acid 1.7 (0.7-2.1) MMOL/L Calcium (8.4-10.2) mg/dL Total Bilirubin (0.2-1.3) mg/dl AST (17-59) U/L ALT (21-72) U/L Alkaline Phosphatase (38-126) U/L Ammonia (16-60) umo/L Troponin I (0.00-0.120) ng/mL NT-Pro-B Natriuret Pep (0-900) pg/ml Total Protein (6.3-8.2) G/DL Albumin (3.5-5.0) g/dL Globulin (2.2-3.9) gm/dL Albumin/Globulin Ratio (1.0-2.1) Arterial Blood Potassium 4.6 (3.6-5.2) mmol/L IgE (<id=411) kU/L Blood Type Antibody Screen Crossmatch BBK History Checked 03/16/18 03/16/18 03/16/18 Range/Units 16:22 16:22 16:02 WBC (4.8-10.8) K/uL RBC (4.40-5.90) Mil/uL Hgb (12.0-18.0) g/dL Hct (35.0-51.0) % MCV (80.0-94.0) fl MCH (27.0-31.0) pg MCHC (33.0-37.0) g/dL RDW (11.5-14.5) % Plt Count (130-400) K/uL MPV (7.2-11.7) fl Neut % (Auto) (50.0-75.0) % Lymph % (Auto) (20.0-40.0) % Daniels % (Auto) (0.0-10.0) % Eos % (Auto) (0.0-4.0) % Baso % (Auto) (0.0-2.0) % Neut # (Auto) (1.8-7.0) K/uL Lymph # (Auto) (1.0-4.3) K/uL Daniels # (Auto) (0.0-0.8) K/uL Eos # (Auto) (0.0-0.7) K/uL Baso # (Auto) (0.0-0.2) K/uL PT (9.8-13.1) Seconds INR (0.9-1.2) APTT (25.6-37.1) Seconds pCO2 (35-45) mm/Hg pO2 (80-100) mm/Hg HCO3 (21-28) mmol/L ABG pH (7.35-7.45) ABG Total CO2 (22-28) mmol/L ABG O2 Saturation (95-98) % ABG O2 Content (15-23) ML/dL ABG Base Excess (-2.0-3.0) mmol/L ABG Hemoglobin (11.7-17.4) g/dL ABG Carboxyhemoglobin (0.5-1.5) % POC ABG HHb (Measured) (0.0-5.0) % ABG Methemoglobin (0.0-3.0) % ABG O2 Capacity (16-24) mL/dL Chris Test ABG Potassium (3.6-5.2) mmol/L A-a O2 Difference mm/Hg Hgb O2 Saturation (95.0-98.0) % Glucose (75-110) mg/dL Lactate (0.7-2.1) mmol/L Vent Mode Mechanical Rate FiO2 % Tidal Volume PEEP Sodium (132-148) mmol/l Potassium (3.6-5.0) MMOL/L Chloride (98-107) mmol/L Carbon Dioxide (22-30) mmol/L Anion Gap (10-20) BUN (9-20) mg/dl Creatinine (0.8-1.5) mg/dl Est GFR ( Amer) Est GFR (Non-Af Amer) Random Glucose (75-110) mg/dL Lactic Acid 3.4 H (0.7-2.1) MMOL/L Calcium (8.4-10.2) mg/dL Total Bilirubin (0.2-1.3) mg/dl AST (17-59) U/L ALT (21-72) U/L Alkaline Phosphatase (38-126) U/L Ammonia 18 D (16-60) umo/L Troponin I (0.00-0.120) ng/mL NT-Pro-B Natriuret Pep 02752 H (0-900) pg/ml Total Protein (6.3-8.2) G/DL Albumin (3.5-5.0) g/dL Globulin (2.2-3.9) gm/dL Albumin/Globulin Ratio (1.0-2.1) Arterial Blood Potassium (3.6-5.2) mmol/L IgE (<np=132) kU/L Blood Type Antibody Screen Crossmatch BBK History Checked 03/16/18 03/16/18 03/16/18 Range/Units 16:01 16:00 16:00 WBC (4.8-10.8) K/uL RBC (4.40-5.90) Mil/uL Hgb (12.0-18.0) g/dL Hct (35.0-51.0) % MCV (80.0-94.0) fl MCH (27.0-31.0) pg MCHC (33.0-37.0) g/dL RDW (11.5-14.5) % Plt Count (130-400) K/uL MPV (7.2-11.7) fl Neut % (Auto) (50.0-75.0) % Lymph % (Auto) (20.0-40.0) % Daniels % (Auto) (0.0-10.0) % Eos % (Auto) (0.0-4.0) % Baso % (Auto) (0.0-2.0) % Neut # (Auto) (1.8-7.0) K/uL Lymph # (Auto) (1.0-4.3) K/uL Daniels # (Auto) (0.0-0.8) K/uL Eos # (Auto) (0.0-0.7) K/uL Baso # (Auto) (0.0-0.2) K/uL PT 32.9 H (9.8-13.1) Seconds INR 2.9 H (0.9-1.2) APTT 38.8 H (25.6-37.1) Seconds pCO2 (35-45) mm/Hg pO2 (80-100) mm/Hg HCO3 (21-28) mmol/L ABG pH (7.35-7.45) ABG Total CO2 (22-28) mmol/L ABG O2 Saturation (95-98) % ABG O2 Content (15-23) ML/dL ABG Base Excess (-2.0-3.0) mmol/L ABG Hemoglobin (11.7-17.4) g/dL ABG Carboxyhemoglobin (0.5-1.5) % POC ABG HHb (Measured) (0.0-5.0) % ABG Methemoglobin (0.0-3.0) % ABG O2 Capacity (16-24) mL/dL Chris Test ABG Potassium (3.6-5.2) mmol/L A-a O2 Difference mm/Hg Hgb O2 Saturation (95.0-98.0) % Glucose (75-110) mg/dL Lactate (0.7-2.1) mmol/L Vent Mode Mechanical Rate FiO2 % Tidal Volume PEEP Sodium (132-148) mmol/l Potassium (3.6-5.0) MMOL/L Chloride (98-107) mmol/L Carbon Dioxide (22-30) mmol/L Anion Gap (10-20) BUN (9-20) mg/dl Creatinine (0.8-1.5) mg/dl Est GFR ( Amer) Est GFR (Non-Af Amer) Random Glucose (75-110) mg/dL Lactic Acid (0.7-2.1) MMOL/L Calcium (8.4-10.2) mg/dL Total Bilirubin (0.2-1.3) mg/dl AST (17-59) U/L ALT (21-72) U/L Alkaline Phosphatase (38-126) U/L Ammonia (16-60) umo/L Troponin I < 0.0120 (0.00-0.120) ng/mL NT-Pro-B Natriuret Pep (0-900) pg/ml Total Protein (6.3-8.2) G/DL Albumin (3.5-5.0) g/dL Globulin (2.2-3.9) gm/dL Albumin/Globulin Ratio (1.0-2.1) Arterial Blood Potassium (3.6-5.2) mmol/L IgE (<ou=514) kU/L Blood Type O POSITIVE Antibody Screen Negative Crossmatch See Detail BBK History Checked Patient has bt 03/16/18 03/16/18 03/15/18 Range/Units 16:00 16:00 06:00 WBC 7.5 D (4.8-10.8) K/uL RBC 4.10 L (4.40-5.90) Mil/uL Hgb 12.8 (12.0-18.0) g/dL Hct 39.7 (35.0-51.0) % MCV 96.8 H D (80.0-94.0) fl MCH 31.1 H (27.0-31.0) pg MCHC 32.2 L (33.0-37.0) g/dL RDW 21.5 H (11.5-14.5) % Plt Count 139 (130-400) K/uL MPV 8.8 (7.2-11.7) fl Neut % (Auto) 74.6 (50.0-75.0) % Lymph % (Auto) 16.6 L (20.0-40.0) % Daniels % (Auto) 8.1 (0.0-10.0) % Eos % (Auto) 0.2 (0.0-4.0) % Baso % (Auto) 0.5 (0.0-2.0) % Neut # (Auto) 5.6 (1.8-7.0) K/uL Lymph # (Auto) 1.3 (1.0-4.3) K/uL Daniels # (Auto) 0.6 (0.0-0.8) K/uL Eos # (Auto) 0.0 (0.0-0.7) K/uL Baso # (Auto) 0.0 (0.0-0.2) K/uL PT (9.8-13.1) Seconds INR (0.9-1.2) APTT (25.6-37.1) Seconds pCO2 (35-45) mm/Hg pO2 (80-100) mm/Hg HCO3 (21-28) mmol/L ABG pH (7.35-7.45) ABG Total CO2 (22-28) mmol/L ABG O2 Saturation (95-98) % ABG O2 Content (15-23) ML/dL ABG Base Excess (-2.0-3.0) mmol/L ABG Hemoglobin (11.7-17.4) g/dL ABG Carboxyhemoglobin (0.5-1.5) % POC ABG HHb (Measured) (0.0-5.0) % ABG Methemoglobin (0.0-3.0) % ABG O2 Capacity (16-24) mL/dL Chris Test ABG Potassium (3.6-5.2) mmol/L A-a O2 Difference mm/Hg Hgb O2 Saturation (95.0-98.0) % Glucose (75-110) mg/dL Lactate (0.7-2.1) mmol/L Vent Mode Mechanical Rate FiO2 % Tidal Volume PEEP Sodium 131 L (132-148) mmol/l Potassium 5.1 H (3.6-5.0) MMOL/L Chloride 100 (98-107) mmol/L Carbon Dioxide 18 L (22-30) mmol/L Anion Gap 18 (10-20) BUN 23 H (9-20) mg/dl Creatinine 1.0 (0.8-1.5) mg/dl Est GFR ( Amer) > 60 Est GFR (Non-Af Amer) > 60 Random Glucose 97 (75-110) mg/dL Lactic Acid (0.7-2.1) MMOL/L Calcium 8.4 (8.4-10.2) mg/dL Total Bilirubin 1.7 H (0.2-1.3) mg/dl AST 444 H D (17-59) U/L ALT 291 H D (21-72) U/L Alkaline Phosphatase 121 (38-126) U/L Ammonia (16-60) umo/L Troponin I (0.00-0.120) ng/mL NT-Pro-B Natriuret Pep (0-900) pg/ml Total Protein 6.0 L (6.3-8.2) G/DL Albumin 3.0 L (3.5-5.0) g/dL Globulin 3.1 (2.2-3.9) gm/dL Albumin/Globulin Ratio 1.0 (1.0-2.1) Arterial Blood Potassium (3.6-5.2) mmol/L IgE 1011 H (<fs=628) kU/L Blood Type Antibody Screen Crossmatch BBK History Checked Laboratory Results - last 24 hr 03/15/18 03/16/18 03/16/18 06:00 16:00 16:00 WBC 7.5 D RBC 4.10 L Hgb 12.8 Hct 39.7 MCV 96.8 H D MCH 31.1 H MCHC 32.2 L RDW 21.5 H Plt Count 139 MPV 8.8 Neut % (Auto) 74.6 Lymph % (Auto) 16.6 L Daniels % (Auto) 8.1 Eos % (Auto) 0.2 Baso % (Auto) 0.5 Neut # (Auto) 5.6 Lymph # (Auto) 1.3 Daniels # (Auto) 0.6 Eos # (Auto) 0.0 Baso # (Auto) 0.0 PT INR APTT pCO2 pO2 HCO3 ABG pH ABG Total CO2 ABG O2 Saturation ABG O2 Content ABG Base Excess ABG Hemoglobin ABG Carboxyhemoglobin POC ABG HHb (Measured) ABG Methemoglobin ABG O2 Capacity Chris Test ABG Potassium A-a O2 Difference Hgb O2 Saturation Glucose Lactate Vent Mode Mechanical Rate FiO2 Tidal Volume PEEP Sodium 131 L Potassium 5.1 H Chloride 100 Carbon Dioxide 18 L Anion Gap 18 BUN 23 H Creatinine 1.0 Est GFR ( Amer) > 60 Est GFR (Non-Af Amer) > 60 Random Glucose 97 Lactic Acid Calcium 8.4 Total Bilirubin 1.7 H AST 444 H D ALT 291 H D Alkaline Phosphatase 121 Ammonia Troponin I NT-Pro-B Natriuret Pep Total Protein 6.0 L Albumin 3.0 L Globulin 3.1 Albumin/Globulin Ratio 1.0 Arterial Blood Potassium IgE 1011 H Blood Type Antibody Screen Crossmatch BBK History Checked 03/16/18 03/16/18 03/16/18 16:00 16:00 16:01 WBC RBC Hgb Hct MCV MCH MCHC RDW Plt Count MPV Neut % (Auto) Lymph % (Auto) Daniels % (Auto) Eos % (Auto) Baso % (Auto) Neut # (Auto) Lymph # (Auto) Daniels # (Auto) Eos # (Auto) Baso # (Auto) PT 32.9 H INR 2.9 H APTT 38.8 H pCO2 pO2 HCO3 ABG pH ABG Total CO2 ABG O2 Saturation ABG O2 Content ABG Base Excess ABG Hemoglobin ABG Carboxyhemoglobin POC ABG HHb (Measured) ABG Methemoglobin ABG O2 Capacity Chris Test ABG Potassium A-a O2 Difference Hgb O2 Saturation Glucose Lactate Vent Mode Mechanical Rate FiO2 Tidal Volume PEEP Sodium Potassium Chloride Carbon Dioxide Anion Gap BUN Creatinine Est GFR ( Amer) Est GFR (Non-Af Amer) Random Glucose Lactic Acid Calcium Total Bilirubin AST ALT Alkaline Phosphatase Ammonia Troponin I < 0.0120 NT-Pro-B Natriuret Pep Total Protein Albumin Globulin Albumin/Globulin Ratio Arterial Blood Potassium IgE Blood Type O POSITIVE Antibody Screen Negative Crossmatch See Detail BBK History Checked Patient has bt 03/16/18 03/16/18 03/16/18 16:02 16:22 16:22 WBC RBC Hgb Hct MCV MCH MCHC RDW Plt Count MPV Neut % (Auto) Lymph % (Auto) Daniels % (Auto) Eos % (Auto) Baso % (Auto) Neut # (Auto) Lymph # (Auto) Daniels # (Auto) Eos # (Auto) Baso # (Auto) PT INR APTT pCO2 pO2 HCO3 ABG pH ABG Total CO2 ABG O2 Saturation ABG O2 Content ABG Base Excess ABG Hemoglobin ABG Carboxyhemoglobin POC ABG HHb (Measured) ABG Methemoglobin ABG O2 Capacity Chris Test ABG Potassium A-a O2 Difference Hgb O2 Saturation Glucose Lactate Vent Mode Mechanical Rate FiO2 Tidal Volume PEEP Sodium Potassium Chloride Carbon Dioxide Anion Gap BUN Creatinine Est GFR ( Amer) Est GFR (Non-Af Amer) Random Glucose Lactic Acid 3.4 H Calcium Total Bilirubin AST ALT Alkaline Phosphatase Ammonia 18 D Troponin I NT-Pro-B Natriuret Pep 93658 H Total Protein Albumin Globulin Albumin/Globulin Ratio Arterial Blood Potassium IgE Blood Type Antibody Screen Crossmatch BBK History Checked 03/16/18 03/16/18 03/16/18 16:49 23:40 23:40 WBC 6.4 RBC 3.37 L Hgb 10.7 L D Hct 32.2 L MCV 95.5 H MCH 31.9 H MCHC 33.4 RDW 20.4 H Plt Count 104 L D MPV Neut % (Auto) Lymph % (Auto) Daniels % (Auto) Eos % (Auto) Baso % (Auto) Neut # (Auto) Lymph # (Auto) Daniels # (Auto) Eos # (Auto) Baso # (Auto) PT INR APTT pCO2 45 pO2 65 L HCO3 17.1 L ABG pH 7.21 L ABG Total CO2 19.4 L ABG O2 Saturation 88.3 L ABG O2 Content ABG Base Excess -9.7 L ABG Hemoglobin ABG Carboxyhemoglobin POC ABG HHb (Measured) ABG Methemoglobin ABG O2 Capacity Chris Test Yes ABG Potassium 4.6 A-a O2 Difference 307.0 Hgb O2 Saturation Glucose 93 Lactate 2.7 H Vent Mode A/c Mechanical Rate 12 FiO2 60.0 Tidal Volume 500 PEEP 5 Sodium 128.0 L Potassium Chloride 100.0 Carbon Dioxide Anion Gap BUN Creatinine Est GFR ( Amer) Est GFR (Non-Af Amer) Random Glucose Lactic Acid 1.7 Calcium Total Bilirubin AST ALT Alkaline Phosphatase Ammonia Troponin I NT-Pro-B Natriuret Pep Total Protein Albumin Globulin Albumin/Globulin Ratio Arterial Blood Potassium 4.6 IgE Blood Type Antibody Screen Crossmatch BBK History Checked 03/16/18 03/16/18 03/17/18 23:40 23:40 00:33 WBC RBC Hgb Hct MCV MCH MCHC RDW Plt Count MPV Neut % (Auto) Lymph % (Auto) Daniels % (Auto) Eos % (Auto) Baso % (Auto) Neut # (Auto) Lymph # (Auto) Daniels # (Auto) Eos # (Auto) Baso # (Auto) PT 25.5 H D INR 2.3 H D APTT 38.5 H pCO2 32 L pO2 186 H HCO3 21.2 ABG pH 7.39 ABG Total CO2 20.4 L ABG O2 Saturation 99.7 H ABG O2 Content 15.7 ABG Base Excess -4.8 L ABG Hemoglobin 11.2 L ABG Carboxyhemoglobin 1.5 POC ABG HHb (Measured) 0.3 ABG Methemoglobin 1.4 ABG O2 Capacity 15.7 L Chris Test Yes ABG Potassium A-a O2 Difference 487.0 Hgb O2 Saturation 96.9 Glucose Lactate Vent Mode A/c Mechanical Rate 12 FiO2 100.0 Tidal Volume 500 PEEP 5 Sodium 131 L Potassium 4.3 Chloride 103 Carbon Dioxide 20 L Anion Gap 12 BUN 20 Creatinine 0.8 Est GFR ( Amer) > 60 Est GFR (Non-Af Amer) > 60 Random Glucose 85 Lactic Acid Calcium 7.8 L Total Bilirubin 1.5 H AST 290 H D ALT 209 H D Alkaline Phosphatase 94 Ammonia Troponin I NT-Pro-B Natriuret Pep Total Protein 5.2 L Albumin 2.5 L Globulin 2.7 Albumin/Globulin Ratio 0.9 L Arterial Blood Potassium IgE Blood Type Antibody Screen Crossmatch BBK History Checked 03/17/18 03/17/18 03/17/18 05:11 05:26 05:26 WBC 6.7 RBC 3.40 L Hgb 10.6 L Hct 32.2 L MCV 94.8 H MCH 31.2 H MCHC 33.0 RDW 21.0 H Plt Count 105 L MPV Neut % (Auto) Lymph % (Auto) Daniels % (Auto) Eos % (Auto) Baso % (Auto) Neut # (Auto) Lymph # (Auto) Daniels # (Auto) Eos # (Auto) Baso # (Auto) PT INR APTT pCO2 37 pO2 239 H HCO3 20.9 L ABG pH 7.34 L ABG Total CO2 21.1 L ABG O2 Saturation 99.5 H ABG O2 Content 15.8 ABG Base Excess -5.2 L ABG Hemoglobin 11.1 L ABG Carboxyhemoglobin 1.1 POC ABG HHb (Measured) 0.5 ABG Methemoglobin 1.0 ABG O2 Capacity 15.9 L Chris Test Yes ABG Potassium A-a O2 Difference 214.0 Hgb O2 Saturation 97.4 Glucose Lactate Vent Mode A/c Mechanical Rate 12 FiO2 70.0 Tidal Volume 500 PEEP Sodium 132 Potassium 4.4 Chloride 104 Carbon Dioxide 20 L Anion Gap 12 BUN 20 Creatinine 0.8 Est GFR ( Amer) > 60 Est GFR (Non-Af Amer) > 60 Random Glucose 69 L Lactic Acid Calcium 7.7 L Total Bilirubin 1.5 H AST 255 H ALT 192 H Alkaline Phosphatase 91 Ammonia Troponin I NT-Pro-B Natriuret Pep Total Protein 4.9 L Albumin 2.3 L Globulin 2.6 Albumin/Globulin Ratio 0.9 L Arterial Blood Potassium IgE Blood Type Antibody Screen Crossmatch BBK History Checked Fingerstick Blood Sugar Results: 88 Review of Systems - Review of Systems Systems not reviewed;Unavailable: Intubated Critical Care Progress Note - Ventilator Checklist Head of Bed 30 Degrees: Yes Daily Sedation Vacation: Yes Daily Assessment of Readiness to Wean: Yes Daily Spontaneous Breathing Trial: Yes PUD Prophalyxis: Yes DVT Prophylaxis: Yes - Nutrition Nutrition: Nutrition Category Date Time Status NPO Diet [DIET] Diets 03/17/18 Lunch Active Assessment/Plan (1) Acute respiratory failure Assessment and plan: 77yo M. PMHx CVA, hepatitis A & B, CHF, PPM, COPD, intermediate resident, mild to moderate dementia. (03/12) p/w AMS, weakness, jaundice, transaminitis. admitted to Telemetry, deteriorated and intubated (03/16) for acute respiratory failure. Neuro: sedated on vent, transition from drip to versed prn pushes. Pulm: acute respiratory failure, on vent. pulmonary edema, will try to diurese. most likely secondary to severe chronic systolic congestive heart failure. CV: hypotensive, started on levophed. holding coreg, Hem: Elevated INR with bloody output from OGT, transfusing 4 units FFP. Renal: urine output wnl, will monitor Endo: no acute issues GI: NPO. GI consulted, will scope once more stable or if bleeding becomes worse. protonix gtt for possible bleeding ulcer. ID: empiric therapy with clindamycin and ceftriaxone. DVT proph - SCD's GI proph - protonix gtt benitez for strict I/O's during acute illness Code status - full code Critical Care Time spent 35 minutes Multi-disciplinary rounds were performed with house staff, nursing, speech therapy, respiratory therapy, pharmacy and nutrition with integrated input from the primary team/attending and other consulting services. The documented time is cumulative and includes review of patient data/exams/labs/chart review and examination of the patient on rounds and throughout the day; time is exclusive of any procedures or teaching time. Current Visit: Yes Status: Acute
--- NOTE | 2018-03-17 18:01 | CP.PCM.CON ---
History of Present Illness - History of Present Illness History of Present Illness: Consultation for evaluation of CHF HPI: 77-year-old male with past medical history significant for CVA CHF hypertension COPD who was evaluated by me back in June 2017 at which time he had undergone a cardiac catheterization showing moderate two-vessel CAD mild systolic dysfunction had an echocardiogram back on last month at which time his EF was noted to be 2025% was brought in from [facility] after being found to have altered mental status on March 12 patient apparently was confused and delirious with slurring of speech jaundiced and hyperbilirubinemia for the hyperbilirubinemia with elevated liver enzymes. Patient was being evaluated for CHF exacerbation secondary to increased pulmonary venous congestion at the time of my evaluation over the weekend on Saturday and on Saturday patient was mildly fluid overloaded but due to limited history was maintained to continue in therapy over the weekend he went into decompensated failure with severe distal respiratory distress and worsening of mental status requiring him to be intubated and transferred to the ICU. Review of Systems - Review of Systems Systems not reviewed;Unavailable: Acuity of Condition - Constitutional Constitutional: As Per HPI - EENT Eyes: As Per HPI Ears: As Per HPI Nose/Mouth/Throat: As Per HPI - Cardiovascular Cardiovascular: As Per HPI - Respiratory Respiratory: As Per HPI - Gastrointestinal Gastrointestinal: As Per HPI - Genitourinary Genitourinary: As Per HPI - Reproductive: Male Reproductive:Male: As Per HPI - Musculoskeletal Musculoskeletal: As Per HPI - Integumentary Integumentary: As Per HPI - Neurological Neurological: As Per HPI - Psychiatric Psychiatric: As Per HPI - Endocrine Endocrine: As Per HPI - Hematologic/Lymphatic Hematologic: As Per HPI Past Patient History - Past Medical History & Family History Past Medical History?: Yes - Past Social History Smoking Status: Former Smoker Alcohol: None Drugs: Denies Home Situation {Lives}: Jail - CARDIAC Hx Cardiac Disorders: Yes Hx Congestive Heart Failure: Yes Hx Hypercholesterolemia: Yes Hx Hypertension: Yes Hx Pacemaker: Yes - PULMONARY Hx Respiratory Disorders: Yes Hx Chronic Obstructive Pulmonary Disease (COPD): Yes - NEUROLOGICAL Hx Neurological Disorder: No Hx Dementia: Yes - HEENT Hx HEENT Problems: No - RENAL Hx Chronic Kidney Disease: No - ENDOCRINE/METABOLIC Hx Endocrine Disorders: No - HEMATOLOGICAL/ONCOLOGICAL Hx Blood Disorders: Yes Hx Hepatitis A: Yes Hx Hepatitis B: Yes - INTEGUMENTARY Hx Dermatological Problems: No - MUSCULOSKELETAL/RHEUMATOLOGICAL Hx Musculoskeletal Disorders: Yes Hx Back Pain: Yes Hx Falls: Yes Hx Osteoarthritis: Yes - GASTROINTESTINAL Hx Gastrointestinal Disorders: No - GENITOURINARY/GYNECOLOGICAL Hx Genitourinary Disorders: Yes Hx Prostate Problems: Yes - PSYCHIATRIC Hx Psychophysiologic Disorder: Yes Hx Anxiety: Yes - SURGICAL HISTORY Hx Surgeries: Yes Hx Tonsillectomy: Yes - ANESTHESIA Hx Anesthesia: Yes Hx Anesthesia Reactions: No Hx Malignant Hyperthermia: No Meds Home Medications: Home Medication List Medication Instructions Recorded Confirmed Type cefTRIAXone 1 gm [Rocephin 1 gram 1 gm IVPB DAILY #7 bag 03/14/18 Rx IVPB] Allergies/Adverse Reactions: Allergies Allergy/AdvReac Type Severity Reaction Status Date / Time No Known Allergies Allergy Verified 03/12/18 14:17 - Medications Medications: Current Medications Acetaminophen (Tylenol 325mg Tab) 650 mg PO Q4 PRN PRN Reason: Pain, Mild (1-3) Albuterol/Ipratropium (Duoneb 3 Mg/0.5 Mg (3 Ml) Ud) 3 ml INH RQ6 EUGENIO Last Admin: 03/17/18 13:21 Dose: 3 ml Bisacodyl (Dulcolax) 10 mg [place] DAILY PRN PRN Reason: No bowel movement x3days Furosemide (Lasix) 40 mg IV Q12H EUGENIO Last Admin: 03/17/18 16:06 Dose: 40 mg Ceftriaxone Sodium 1 gm/ (Sodium Chloride) 100 mls @ 100 mls/hr IVPB DAILY EUGENIO PRN Reason: Protocol Last Admin: 03/17/18 12:06 Dose: 100 mls/hr Clindamycin in NS (Clindamycin 300 Mg/50 Ml-Ns) 300 mg in 50 mls @ 50 mls/hr IVPB Q12 EUGENIO PRN Reason: Protocol Last Admin: 03/17/18 08:07 Dose: 50 mls/hr Pantoprazole Sodium 40 mg/ (Sodium Chloride) 100 mls @ 100 mls/hr IVPB Q5H EUGENIO PRN Reason: 40 MG/HR Last Admin: 03/17/18 14:10 Dose: 100 mls/hr Sodium Chloride (Sodium Chloride 0.9%) 1,000 mls @ 75 mls/hr IV .[id number] [facility] Stop: 03/18/18 00:49 Last Admin: 03/17/18 06:06 Dose: 75 mls/hr Phenylephrine HCl 60 mg/ (Sodium Chloride) 256 mls @ 5.11 mls/hr IV .Q24H EUGENIO; 20 MCG/MIN PRN Reason: Protocol Stop: 03/18/18 12:26 Last Titration: 03/17/18 14:20 Dose: 70 mcg/min, 17.92 mls/hr Norepinephrine Bitartrate 16 (mg/ Dextrose) 266 mls @ 2.49 mls/hr IV .Q24H EUGENIO PRN Reason: 2.5 MCG/MIN Last Infusion: 03/17/18 16:00 Dose: 2.49 mls/hr Magnesium Hydroxide (Milk Of Magnesia) 30 ml PO HS PRN PRN Reason: No bowel movement x2 days Midazolam HCl (Versed Inj) 2 mg IV Q6H PRN PRN Reason: Agitation [id number] Ethyl Esters (Lovaza) 1 gm PO Q12 [facility] Last Admin: 03/17/18 08:08 Dose: Not Given Oxymetazoline HCl (Nasal Decongestant 15 Ml) 1 spr NS Q12 PRN PRN Reason: Nasal congestion Last Admin: 03/16/18 16:47 Dose: 1 spr Tamsulosin HCl (Flomax) 0.4 mg PO QPM [facility] Last Admin: 03/16/18 19:50 Dose: Not Given Physical Exam - Constitutional Appears: Toxic - Head Exam Head Exam: ATRAUMATIC, NORMAL INSPECTION, NORMOCEPHALIC - Eye Exam Eye Exam: EOMI, Normal appearance, PERRL Pupil Exam: NORMAL ACCOMODATION, PERRL - ENT Exam ENT Exam: Mucous Membranes Moist, Normal Exam - Neck Exam Neck exam: Positive for: Normal Inspection - Respiratory Exam Respiratory Exam: Rales, NORMAL BREATHING PATTERN - Cardiovascular Exam Cardiovascular Exam: Tachycardia, REGULAR RHYTHM, +S1, +S2, Systolic Murmur - GI/Abdominal Exam GI & Abdominal Exam: Normal Bowel Sounds, Soft. absent: Tenderness - Extremities Exam Extremities exam: Positive for: normal inspection - Back Exam Back exam: NORMAL INSPECTION - Neurological Exam Neurological exam: Alert, CN II-XII Intact, Normal Gait, Oriented x3, Reflexes Normal - Psychiatric Exam Psychiatric exam: Normal Affect, Normal Mood - Skin Skin Exam: Dry, Intact, Normal Color, Warm Results - Vital Signs Recent Vital Signs: Last Vital Signs Temp 97 F L 03/17/18 16:00 Pulse 87 03/17/18 16:00 Resp 17 03/17/18 16:00 BP 99/67 L 03/17/18 16:06 Pulse Ox 100 03/17/18 16:00 - Labs Result Diagrams: 03/17/18 05:26 03/17/18 05:26 Labs: Laboratory Results - last 24 hr 03/15/18 03/16/18 03/16/18 06:00 16:01 23:40 WBC RBC Hgb Hct MCV MCH MCHC RDW Plt Count PT INR APTT pCO2 pO2 HCO3 ABG pH ABG Total CO2 ABG O2 Saturation ABG O2 Content ABG Base Excess ABG Hemoglobin ABG Carboxyhemoglobin POC ABG HHb (Measured) ABG Methemoglobin ABG O2 Capacity Chris Test A-a O2 Difference Hgb O2 Saturation Vent Mode Mechanical Rate FiO2 Tidal Volume PEEP Sodium Potassium Chloride Carbon Dioxide Anion Gap BUN Creatinine Est GFR ( Amer) Est GFR (Non-Af Amer) Random Glucose Lactic Acid 1.7 Calcium Total Bilirubin AST ALT Alkaline Phosphatase Total Protein Albumin Globulin Albumin/Globulin Ratio IgE 1011 H Thyroperoxidase Ab <1 Thyroglobulin Antibody <1 Blood Type O POSITIVE Antibody Screen Negative Crossmatch See Detail BBK History Checked Patient has bt 03/16/18 03/16/18 03/16/18 23:40 23:40 23:40 WBC 6.4 RBC 3.37 L Hgb 10.7 L D Hct 32.2 L MCV 95.5 H MCH 31.9 H MCHC 33.4 RDW 20.4 H Plt Count 104 L D PT 25.5 H D INR 2.3 H D APTT 38.5 H pCO2 pO2 HCO3 ABG pH ABG Total CO2 ABG O2 Saturation ABG O2 Content ABG Base Excess ABG Hemoglobin ABG Carboxyhemoglobin POC ABG HHb (Measured) ABG Methemoglobin ABG O2 Capacity Chris Test A-a O2 Difference Hgb O2 Saturation Vent Mode Mechanical Rate FiO2 Tidal Volume PEEP Sodium 131 L Potassium 4.3 Chloride 103 Carbon Dioxide 20 L Anion Gap 12 BUN 20 Creatinine 0.8 Est GFR ( Amer) > 60 Est GFR (Non-Af Amer) > 60 Random Glucose 85 Lactic Acid Calcium 7.8 L Total Bilirubin 1.5 H AST 290 H D ALT 209 H D Alkaline Phosphatase 94 Total Protein 5.2 L Albumin 2.5 L Globulin 2.7 Albumin/Globulin Ratio 0.9 L IgE Thyroperoxidase Ab Thyroglobulin Antibody Blood Type Antibody Screen Crossmatch BBK History Checked 03/17/18 03/17/18 03/17/18 00:33 05:11 05:26 WBC 6.7 RBC 3.40 L Hgb 10.6 L Hct 32.2 L MCV 94.8 H MCH 31.2 H MCHC 33.0 RDW 21.0 H Plt Count 105 L PT INR APTT pCO2 32 L 37 pO2 186 H 239 H HCO3 21.2 20.9 L ABG pH 7.39 7.34 L ABG Total CO2 20.4 L 21.1 L ABG O2 Saturation 99.7 H 99.5 H ABG O2 Content 15.7 15.8 ABG Base Excess -4.8 L -5.2 L ABG Hemoglobin 11.2 L 11.1 L ABG Carboxyhemoglobin 1.5 1.1 POC ABG HHb (Measured) 0.3 0.5 ABG Methemoglobin 1.4 1.0 ABG O2 Capacity 15.7 L 15.9 L Chris Test Yes Yes A-a O2 Difference 487.0 214.0 Hgb O2 Saturation 96.9 97.4 Vent Mode A/c A/c Mechanical Rate 12 12 FiO2 100.0 70.0 Tidal Volume 500 500 PEEP 5 Sodium Potassium Chloride Carbon Dioxide Anion Gap BUN Creatinine Est GFR ( Amer) Est GFR (Non-Af Amer) Random Glucose Lactic Acid Calcium Total Bilirubin AST ALT Alkaline Phosphatase Total Protein Albumin Globulin Albumin/Globulin Ratio IgE Thyroperoxidase Ab Thyroglobulin Antibody Blood Type Antibody Screen Crossmatch BBK History Checked 03/17/18 05:26 WBC RBC Hgb Hct MCV MCH MCHC RDW Plt Count PT INR APTT pCO2 pO2 HCO3 ABG pH ABG Total CO2 ABG O2 Saturation ABG O2 Content ABG Base Excess ABG Hemoglobin ABG Carboxyhemoglobin POC ABG HHb (Measured) ABG Methemoglobin ABG O2 Capacity Chris Test A-a O2 Difference Hgb O2 Saturation Vent Mode Mechanical Rate FiO2 Tidal Volume PEEP Sodium 132 Potassium 4.4 Chloride 104 Carbon Dioxide 20 L Anion Gap 12 BUN 20 Creatinine 0.8 Est GFR ( Amer) > 60 Est GFR (Non-Af Amer) > 60 Random Glucose 69 L Lactic Acid Calcium 7.7 L Total Bilirubin 1.5 H AST 255 H ALT 192 H Alkaline Phosphatase 91 Total Protein 4.9 L Albumin 2.3 L Globulin 2.6 Albumin/Globulin Ratio 0.9 L IgE Thyroperoxidase Ab Thyroglobulin Antibody Blood Type Antibody Screen Crossmatch BBK History Checked Assessment & Plan (1) Acute respiratory failure Status: Acute (2) Altered mental status Status: Acute Priority: High (3) Jaundice Status: Acute (4) CAD (coronary artery disease) Status: Chronic Priority: Medium (5) CHF (congestive heart failure) Status: Chronic (6) History of permanent cardiac pacemaker placement Status: Chronic Priority: Medium (7) COPD exacerbation Status: Resolved
--- NOTE | 2018-03-17 18:42 | CP.PCM.PN ---
Subjective - Date & Time of Evaluation Date of Evaluation: 03/17/18 Time of Evaluation: 10:00 - Subjective Subjective: F/U respiratory failure intubated for Acute Respiratory failure, blood founded in Pharynx during intubation, agitated at times Objective - Vital Signs/Intake and Output Vital Signs (last 24 hours): Temp Pulse Resp BP Pulse Ox 97 F L 96 H 20 103/60 100 03/17/18 16:00 03/17/18 18:00 03/17/18 18:00 03/17/18 18:00 03/17/18 18:00 Intake and Output: 03/17/18 03/17/18 06:59 18:59 Intake Total 2233 1672 Output Total 400 700 Balance 1833 972 - Medications Medications: Current Medications Acetaminophen (Tylenol 325mg Tab) 650 mg PO Q4 PRN PRN Reason: Pain, Mild (1-3) Albuterol/Ipratropium (Duoneb 3 Mg/0.5 Mg (3 Ml) Ud) 3 ml INH RQ6 EUGENIO Last Admin: 03/17/18 13:21 Dose: 3 ml Bisacodyl (Dulcolax) 10 mg [place] DAILY PRN PRN Reason: No bowel movement x3days Furosemide (Lasix) 40 mg IV Q12H EUGENIO Last Admin: 03/17/18 16:06 Dose: 40 mg Ceftriaxone Sodium 1 gm/ (Sodium Chloride) 100 mls @ 100 mls/hr IVPB DAILY EUGENIO PRN Reason: Protocol Last Admin: 03/17/18 12:06 Dose: 100 mls/hr Clindamycin in NS (Clindamycin 300 Mg/50 Ml-Ns) 300 mg in 50 mls @ 50 mls/hr IVPB Q12 EUGENIO PRN Reason: Protocol Last Admin: 03/17/18 08:07 Dose: 50 mls/hr Pantoprazole Sodium 40 mg/ (Sodium Chloride) 100 mls @ 100 mls/hr IVPB Q5H EUGENIO PRN Reason: 40 MG/HR Last Admin: 03/17/18 14:10 Dose: 100 mls/hr Sodium Chloride (Sodium Chloride 0.9%) 1,000 mls @ 75 mls/hr IV .[id number] [facility] Stop: 03/18/18 00:49 Last Admin: 03/17/18 06:06 Dose: 75 mls/hr Phenylephrine HCl 60 mg/ (Sodium Chloride) 256 mls @ 5.11 mls/hr IV .Q24H EUGENIO; 20 MCG/MIN PRN Reason: Protocol Stop: 03/18/18 12:26 Last Titration: 03/17/18 14:20 Dose: 70 mcg/min, 17.92 mls/hr Norepinephrine Bitartrate 16 (mg/ Dextrose) 266 mls @ 2.49 mls/hr IV .Q24H EUGENIO PRN Reason: 2.5 MCG/MIN Last Infusion: 03/17/18 16:00 Dose: 2.49 mls/hr Magnesium Hydroxide (Milk Of Magnesia) 30 ml PO HS PRN PRN Reason: No bowel movement x2 days Midazolam HCl (Versed Inj) 2 mg IV Q6H PRN PRN Reason: Agitation [id number] Ethyl Esters (Lovaza) 1 gm PO Q12 EUGENIO Last Admin: 03/17/18 08:08 Dose: Not Given Oxymetazoline HCl (Nasal Decongestant 15 Ml) 1 spr NS Q12 PRN PRN Reason: Nasal congestion Last Admin: 03/16/18 16:47 Dose: 1 spr Tamsulosin HCl (Flomax) 0.4 mg PO QPM EUGENIO Last Admin: 03/16/18 19:50 Dose: Not Given - Labs Labs: 03/17/18 05:26 03/17/18 05:26 PT 25.5 Seconds (9.8-13.1) H D 03/16/18 23:40 INR 2.3 (0.9-1.2) H D 03/16/18 23:40 APTT 38.5 Seconds (25.6-37.1) H 03/16/18 23:40 - Constitutional Appears: Chronically Ill - Head Exam Head Exam: NORMAL INSPECTION - Eye Exam Eye Exam: PERRL - ENT Exam Additional comments: Intubated - Neck Exam Neck Exam: Normal Inspection - Respiratory Exam Respiratory Exam: Decreased Breath Sounds (at bases), Rhonchi - Cardiovascular Exam Cardiovascular Exam: REGULAR RHYTHM - GI/Abdominal Exam GI & Abdominal Exam: Soft, Normal Bowel Sounds - Extremities Exam Extremities Exam: Pedal Edema Additional comments: R-L TKR - Back Exam Back Exam: NORMAL INSPECTION - Neurological Exam Additional comments: Intubated, sedated. - Skin Skin Exam: Warm Additional comments: Jaundice. Assessment and Plan (1) Acute respiratory failure Status: Acute (2) CHF (congestive heart failure) Assessment & Plan: acute on chronic systolic Status: Chronic (3) Altered mental status Status: Acute (4) UTI (urinary tract infection) Status: Acute (5) Difficulty with speech Status: Chronic (6) CAD (coronary artery disease) Status: Chronic (7) AICD (automatic cardioverter/defibrillator) present Status: Chronic (8) Generalized weakness Status: Chronic (9) Anxiety Status: Chronic (10) Jaundice Status: Acute (11) COPD (chronic obstructive pulmonary disease) Status: Acute (12) Bleeding Status: Acute - Assessment and Plan (Free Text) Plan: ventilatory support, bilirrubin slightly elevated, Hgb mild drop, Patient had 2U FFP, VitK , no PRBC transfusion was needed, low BP, on Norepinephrine, Midazolam for agitaton, Protonix drip, Rocephin for UTI, CXR CHF, Lasix IV Critcal care time: 40 min.
--- NOTE | 2018-03-17 22:10 | CP.PCM.CON ---
History of Present Illness - History of Present Illness History of Present Illness: 77 yo female with h/o CHF and dementia transferred from alf for weakness. Became more dyspneic and intubation was done. At that time blood seen in OGT and around ET tube. Patient INR was elevated at the time. FFP was given and no PRBC transfusion needed. Hgb has been stable since. CT of abdomen shows abdominal ascites though cirrhosis not seen and Bili is just minimally elevated. Review of Systems - Review of Systems Systems not reviewed;Unavailable: Acuity of Condition Past Patient History - Past Medical History & Family History Past Medical History?: Yes - Past Social History Smoking Status: Former Smoker Alcohol: None Drugs: Denies Home Situation {Lives}: [facility] - CARDIAC Hx Cardiac Disorders: Yes Hx Congestive Heart Failure: Yes Hx Hypercholesterolemia: Yes Hx Hypertension: Yes Hx Pacemaker: Yes - PULMONARY Hx Respiratory Disorders: Yes Hx Chronic Obstructive Pulmonary Disease (COPD): Yes - NEUROLOGICAL Hx Neurological Disorder: No Hx Dementia: Yes - HEENT Hx HEENT Problems: No - RENAL Hx Chronic Kidney Disease: No - ENDOCRINE/METABOLIC Hx Endocrine Disorders: No - HEMATOLOGICAL/ONCOLOGICAL Hx Blood Disorders: Yes Hx Hepatitis A: Yes Hx Hepatitis B: Yes - INTEGUMENTARY Hx Dermatological Problems: No - MUSCULOSKELETAL/RHEUMATOLOGICAL Hx Musculoskeletal Disorders: Yes Hx Back Pain: Yes Hx Falls: Yes Hx Osteoarthritis: Yes - GASTROINTESTINAL Hx Gastrointestinal Disorders: No - GENITOURINARY/GYNECOLOGICAL Hx Genitourinary Disorders: Yes Hx Prostate Problems: Yes - PSYCHIATRIC Hx Psychophysiologic Disorder: Yes Hx Anxiety: Yes - SURGICAL HISTORY Hx Surgeries: Yes Hx Tonsillectomy: Yes - ANESTHESIA Hx Anesthesia: Yes Hx Anesthesia Reactions: No Hx Malignant Hyperthermia: No Meds Home Medications: Home Medication List Medication Instructions Recorded Confirmed Type cefTRIAXone 1 gm [Rocephin 1 gram 1 gm IVPB DAILY #7 bag 03/14/18 Rx IVPB] Allergies/Adverse Reactions: Allergies Allergy/AdvReac Type Severity Reaction Status Date / Time No Known Allergies Allergy Verified 03/12/18 14:17 - Medications Medications: Current Medications Acetaminophen (Tylenol 325mg Tab) 650 mg PO Q4 PRN PRN Reason: Pain, Mild (1-3) Albuterol/Ipratropium (Duoneb 3 Mg/0.5 Mg (3 Ml) Ud) 3 ml INH RQ6 EGUENIO Last Admin: 03/17/18 19:20 Dose: 3 ml Bisacodyl (Dulcolax) 10 mg [place] DAILY PRN PRN Reason: No bowel movement x3days Furosemide (Lasix) 40 mg IV Q12H EUGENIO Last Admin: 03/17/18 16:06 Dose: 40 mg Ceftriaxone Sodium 1 gm/ (Sodium Chloride) 100 mls @ 100 mls/hr IVPB DAILY EUGENIO PRN Reason: Protocol Last Admin: 03/17/18 12:06 Dose: 100 mls/hr Clindamycin in NS (Clindamycin 300 Mg/50 Ml-Ns) 300 mg in 50 mls @ 50 mls/hr IVPB Q12 EUGENIO PRN Reason: Protocol Last Admin: 03/17/18 20:41 Dose: 50 mls/hr Pantoprazole Sodium 40 mg/ (Sodium Chloride) 100 mls @ 100 mls/hr IVPB Q5H EUGENIO PRN Reason: 40 MG/HR Last Admin: 03/17/18 21:14 Dose: 100 mls/hr Sodium Chloride (Sodium Chloride 0.9%) 1,000 mls @ 75 mls/hr IV .[id number] EUGENIO Stop: 03/18/18 00:49 Last Admin: 03/17/18 06:06 Dose: 75 mls/hr Phenylephrine HCl 60 mg/ (Sodium Chloride) 256 mls @ 5.11 mls/hr IV .Q24H EUGENIO; 20 MCG/MIN PRN Reason: Protocol Stop: 03/18/18 12:26 Last Titration: 03/17/18 14:20 Dose: 70 mcg/min, 17.92 mls/hr Norepinephrine Bitartrate 16 (mg/ Dextrose) 266 mls @ 2.49 mls/hr IV .Q24H EUGENIO PRN Reason: 2.5 MCG/MIN Last Infusion: 03/17/18 18:43 Dose: 2.49 mls/hr Magnesium Hydroxide (Milk Of Magnesia) 30 ml PO HS PRN PRN Reason: No bowel movement x2 days Midazolam HCl (Versed Inj) 2 mg IV Q6H PRN PRN Reason: Agitation Oaiub-6-Hhac Ethyl Esters (Lovaza) 1 gm PO Q12 EUGENIO Last Admin: 03/17/18 20:41 Dose: Not Given Oxymetazoline HCl (Nasal Decongestant 15 Ml) 1 spr NS Q12 PRN PRN Reason: Nasal congestion Last Admin: 03/16/18 16:47 Dose: 1 spr Tamsulosin HCl (Flomax) 0.4 mg PO QPM EUGENIO Last Admin: 03/16/18 19:50 Dose: Not Given Physical Exam - Head Exam Head Exam: ATRAUMATIC - Eye Exam Eye Exam: Normal appearance - ENT Exam ENT Exam: Mucous Membranes Moist - Neck Exam Neck exam: Positive for: Normal Inspection - Respiratory Exam Respiratory Exam: Clear to Auscultation Bilateral - Cardiovascular Exam Cardiovascular Exam: REGULAR RHYTHM - GI/Abdominal Exam GI & Abdominal Exam: Distended, Normal Bowel Sounds Results - Vital Signs Recent Vital Signs: Last Vital Signs Temp 97 F L 03/17/18 16:00 Pulse 97 H 03/17/18 21:00 Resp 15 03/17/18 21:00 BP 101/66 03/17/18 21:00 Pulse Ox 99 03/17/18 21:00 - Labs Result Diagrams: 03/17/18 05:26 03/17/18 05:26 Labs: Laboratory Results - last 24 hr 03/15/18 03/16/18 03/16/18 06:00 23:40 23:40 WBC 6.4 RBC 3.37 L Hgb 10.7 L D Hct 32.2 L MCV 95.5 H MCH 31.9 H MCHC 33.4 RDW 20.4 H Plt Count 104 L D PT INR APTT pCO2 pO2 HCO3 ABG pH ABG Total CO2 ABG O2 Saturation ABG O2 Content ABG Base Excess ABG Hemoglobin ABG Carboxyhemoglobin POC ABG HHb (Measured) ABG Methemoglobin ABG O2 Capacity Chris Test A-a O2 Difference Hgb O2 Saturation Vent Mode Mechanical Rate FiO2 Tidal Volume PEEP Sodium Potassium Chloride Carbon Dioxide Anion Gap BUN Creatinine Est GFR ( Amer) Est GFR (Non-Af Amer) Random Glucose Lactic Acid 1.7 Calcium Total Bilirubin AST ALT Alkaline Phosphatase Total Protein Albumin Globulin Albumin/Globulin Ratio IgE 1011 H Thyroperoxidase Ab <1 Thyroglobulin Antibody <1 03/16/18 03/16/18 03/17/18 23:40 23:40 00:33 WBC RBC Hgb Hct MCV MCH MCHC RDW Plt Count PT 25.5 H D INR 2.3 H D APTT 38.5 H pCO2 32 L pO2 186 H HCO3 21.2 ABG pH 7.39 ABG Total CO2 20.4 L ABG O2 Saturation 99.7 H ABG O2 Content 15.7 ABG Base Excess -4.8 L ABG Hemoglobin 11.2 L ABG Carboxyhemoglobin 1.5 POC ABG HHb (Measured) 0.3 ABG Methemoglobin 1.4 ABG O2 Capacity 15.7 L Chris Test Yes A-a O2 Difference 487.0 Hgb O2 Saturation 96.9 Vent Mode A/c Mechanical Rate 12 FiO2 100.0 Tidal Volume 500 PEEP 5 Sodium 131 L Potassium 4.3 Chloride 103 Carbon Dioxide 20 L Anion Gap 12 BUN 20 Creatinine 0.8 Est GFR ( Amer) > 60 Est GFR (Non-Af Amer) > 60 Random Glucose 85 Lactic Acid Calcium 7.8 L Total Bilirubin 1.5 H AST 290 H D ALT 209 H D Alkaline Phosphatase 94 Total Protein 5.2 L Albumin 2.5 L Globulin 2.7 Albumin/Globulin Ratio 0.9 L IgE Thyroperoxidase Ab Thyroglobulin Antibody 03/17/18 03/17/18 03/17/18 05:11 05:26 05:26 WBC 6.7 RBC 3.40 L Hgb 10.6 L Hct 32.2 L MCV 94.8 H MCH 31.2 H MCHC 33.0 RDW 21.0 H Plt Count 105 L PT INR APTT pCO2 37 pO2 239 H HCO3 20.9 L ABG pH 7.34 L ABG Total CO2 21.1 L ABG O2 Saturation 99.5 H ABG O2 Content 15.8 ABG Base Excess -5.2 L ABG Hemoglobin 11.1 L ABG Carboxyhemoglobin 1.1 POC ABG HHb (Measured) 0.5 ABG Methemoglobin 1.0 ABG O2 Capacity 15.9 L Chris Test Yes A-a O2 Difference 214.0 Hgb O2 Saturation 97.4 Vent Mode A/c Mechanical Rate 12 FiO2 70.0 Tidal Volume 500 PEEP Sodium 132 Potassium 4.4 Chloride 104 Carbon Dioxide 20 L Anion Gap 12 BUN 20 Creatinine 0.8 Est GFR ( Amer) > 60 Est GFR (Non-Af Amer) > 60 Random Glucose 69 L Lactic Acid Calcium 7.7 L Total Bilirubin 1.5 H AST 255 H ALT 192 H Alkaline Phosphatase 91 Total Protein 4.9 L Albumin 2.3 L Globulin 2.6 Albumin/Globulin Ratio 0.9 L IgE Thyroperoxidase Ab Thyroglobulin Antibody Assessment & Plan (1) Bleeding Assessment and Plan: Unclear if bleeding is from GI source vs oropharynx or lungs. Ascites may be from right sided heart failure rather than due to cirrhosis. Continue protonix drip and follow clinically for additional bleeding. Status: Acute
[2018-03-18] MEDS: Albuterol-Ipratrop 3 mg / 0.5 (3 ml) UD INH SCH ×4 (01:00→19:08)
[2018-03-18] MEDS: Midazolam 2 MG/2 ML VIAL IV PRN ×3 (01:40→21:16)
[2018-03-18] MEDS: Sodium Chloride 0.9% 1,000 ML IV SCH (02:51)
[2018-03-18] MEDS: Pantoprazole 40 MG in Sodium Chloride 0.9% 100 ML IVPB SCH (04:26)
[2018-03-18 04:46] LABS: ABG ALLEN TEST YES; ARTERIAL BLOOD GAS HCO3 20.7 mmol/L (21-28); ARTERIAL BLOOD GAS HEMOGLOBIN 11.1 g/dL (11.7-17.4); ARTERIAL BLOOD GAS O2 CAPACITY 15.3 mL/dL (16-24); ARTERIAL BLOOD GAS O2 CONTENT 15.1 ML/dL (15-23); ARTERIAL BLOOD GAS O2 SAT 98.9 % (95-98); ARTERIAL BLOOD GAS PCO2 33 mm/Hg (35-45); ARTERIAL BLOOD GAS PH 7.37 (7.35-7.45); ARTERIAL BLOOD GAS PO2 97 mm/Hg (80-100); ARTERIAL BLOOD GAS TCO2 20.1 mmol/L (22-28)
[2018-03-18 06:08] LABS: ALB/GLOB RATIO 1.3 (1.0-2.1); ALBUMIN 3.4 g/dL (3.5-5.0); ALT/SGPT 142 U/L (21-72); AST/SGOT 179 U/L (17-59); BLOOD UREA NITROGEN 16 mg/dl (9-20); CALCIUM 8.1 mg/dL (8.4-10.2); GFR AFRICAN-AMERICAN > 60; GFR NON-AFRICAN AMERICAN > 60
[2018-03-18 06:09] LABS: B-TYPE NATRIURETIC PEPTIDE 15900 pg/ml (0-900)
[2018-03-18 06:10] LABS: HEMOGLOBIN 11.1 g/dL (12.0-18.0); MEAN CELL VOLUME 95.6 fl (80.0-94.0); MEAN CORPUSCULAR HEMOGLOBIN 31.3 pg (27.0-31.0); MEAN CORPUSCULAR HGB CONC 32.7 g/dL (33.0-37.0); RBC 3.55 Mil/uL (4.40-5.90); RED CELL DISTRIBUTION WIDTH 21.2 % (11.5-14.5); WHITE BLOOD COUNT 6.4 K/uL (4.8-10.8)
[2018-03-18] MEDS: Clindamycin in NS 300 MG/50 ML BAG IVPB SCH (08:30)
[2018-03-18] MEDS: Omega-3-Acid Ethyl Esters 1 GM Cap PO SCH ×2 (08:30→21:00)
--- NOTE | 2018-03-18 08:43 | RAD ---
Date of service: 03/18/2018 HISTORY: VENTED COMPARISON: 03/17/2018. FINDINGS: Endotracheal tube terminates 3.5 cm proximal to the kailee. The right IJV line terminates at the cavoatrial junction. The nasogastric tube terminates in the stomach. LUNGS: No significant interval change in presumable pulmonary edema in the lungs. PLEURA: Moderate layering effusions, no pneumothorax apparent. CARDIOVASCULAR: Persistent mild cardiomegaly. There is stable position of left-sided pacemaker. OSSEOUS STRUCTURES: No significant abnormalities. VISUALIZED UPPER ABDOMEN: Normal. OTHER FINDINGS: None. IMPRESSION: Stable position of support line and tubes. No change in presumable pulmonary edema and layering pleural effusions.
[2018-03-18 11:47] LABS: INR 2.3; PROTHROMBIN TIME 25.7 Seconds (9.8-13.1)
[2018-03-18] MEDS ORDERED: Albumin Human 5% (12.5 gm/250 ml) IV ONE (12:15)
[2018-03-18] MEDS ORDERED: Phytonadione 10 mg/ml Inj (Adult) IVPB ONE (12:35)
--- NOTE | 2018-03-18 12:35 | CP.CCUPN ---
CCU Subjective - Physician Review Events Since Last Encounter (Free Text): 03/18/18 12:26 sedated on vent. CCU Objective - Vital Signs / Intake & Output Intake and Output (Last 8hrs): Intake & Output 03/17/18 03/18/18 03/18/18 22:59 06:59 14:59 Intake Total 1390 1088 220 Output Total 700 1400 1200 Balance 690 -312 -980 Weight 220 lb 3.2 oz Intake: IV 375 600 150 Intake, Piggyback 352 250 70 Blood Product 663 238 Output: Urine 700 1400 1200 Urethral (Benitez) 700 1400 1200 - Physical Exam Head: Positive for: Atraumatic, Normocephalic Pupils: Positive for: PERRL, Sluggish Conjunctiva: Positive for: Normal Mouth: Positive for: Moist Mucous Membranes Neck: Positive for: Normal Range of Motion Respiratory/Chest: Positive for: Rales, Rhonchi Cardiovascular: Positive for: Regular Rate and Rhythm Abdomen: Positive for: Normal Bowel Sounds. Negative for: Tenderness, Distention Upper Extremity: Positive for: Normal Inspection Lower Extremity: Positive for: Normal Inspection Psychiatric: Negative for: Alert, Oriented x 3 - Medications Active Medications: Active Medications Generic Name Dose Route Start Last Admin Trade Name Freq PRN Reason Stop Dose Admin Acetaminophen 650 mg 03/13/18 01:35 Tylenol 325mg Tab PO Q4 PRN Pain, Mild (1-3) Albuterol/Ipratropium 3 ml 03/13/18 02:00 03/18/18 08:02 Duoneb 3 Mg/0.5 Mg (3 Ml) Ud INH 3 ml RQ6 EUGENIO Administration Bisacodyl 10 mg 03/13/18 01:35 Dulcolax [place] DAILY PRN No bowel movement x3days Furosemide 40 mg 03/17/18 16:15 03/18/18 04:33 Lasix IV 40 mg Q12H EUGENIO Administration Phenylephrine HCl 60 mg/ 256 mls @ 5.11 mls/hr 03/17/18 12:30 03/17/18 14:20 Sodium Chloride IV 03/18/18 12:26 70 mcg/min .Q24H EUGENIO 17.92 mls/hr Protocol Titration 20 MCG/MIN Norepinephrine Bitartrate 16 266 mls @ 2.49 mls/hr 03/17/18 14:23 03/17/18 18 :43 mg/ Dextrose IV 2.49 mls/hr .Q24H EUGENIO Infusion 2.5 MCG/MIN Magnesium Hydroxide 30 ml 03/13/18 01:35 Milk Of Magnesia PO HS PRN No bowel movement x2 days Midazolam HCl 2 mg 03/17/18 10:45 03/18/18 08:28 Versed Inj IV 2 mg Q6H PRN Administration Agitation Uzbpn-3-Hsuw Ethyl Esters 1 gm 03/13/18 09:00 03/18/18 08:30 Lovaza PO Not Given Q12 EUGENIO Oxymetazoline HCl 1 spr 03/16/18 16:36 03/16/18 16:47 Nasal Decongestant 15 Ml NS 1 spr Q12 PRN Administration Nasal congestion Pantoprazole Sodium 40 mg 03/18/18 17:00 Protonix Susp PO BID EUGENIO Tamsulosin HCl 0.4 mg 03/13/18 18:00 03/16/18 19:50 Flomax PO Not Given QPM EUGENIO - Patient Studies Lab Studies: Lab Studies 03/18/18 03/18/18 03/18/18 Range/Units 09:39 05:00 05:00 WBC 6.4 (4.8-10.8) K/uL RBC 3.55 L (4.40-5.90) Mil/uL Hgb 11.1 L (12.0-18.0) g/dL Hct 33.9 L (35.0-51.0) % MCV 95.6 H (80.0-94.0) fl MCH 31.3 H (27.0-31.0) pg MCHC 32.7 L (33.0-37.0) g/dL RDW 21.2 H (11.5-14.5) % Plt Count 103 L (130-400) K/uL PT 25.7 H (9.8-13.1) Seconds INR 2.3 pCO2 (35-45) mm/Hg pO2 (80-100) mm/Hg HCO3 (21-28) mmol/L ABG pH (7.35-7.45) ABG Total CO2 (22-28) mmol/L ABG O2 Saturation (95-98) % ABG O2 Content (15-23) ML/dL ABG Base Excess (-2.0-3.0) mmol/L ABG Hemoglobin (11.7-17.4) g/dL ABG Carboxyhemoglobin (0.5-1.5) % POC ABG HHb (Measured) (0.0-5.0) % ABG Methemoglobin (0.0-3.0) % ABG O2 Capacity (16-24) mL/dL Chris Test A-a O2 Difference mm/Hg Hgb O2 Saturation (95.0-98.0) % Vent Mode Mechanical Rate FiO2 % Tidal Volume PEEP Sodium 140 (132-148) mmol/l Potassium 3.7 (3.6-5.0) MMOL/L Chloride 105 (98-107) mmol/L Carbon Dioxide 20 L (22-30) mmol/L Anion Gap 19 (10-20) BUN 16 (9-20) mg/dl Creatinine 0.9 (0.8-1.5) mg/dl Est GFR ( Amer) > 60 Est GFR (Non-Af Amer) > 60 Random Glucose 74 L (75-110) mg/dL Calcium 8.1 L (8.4-10.2) mg/dL Total Bilirubin 2.2 H (0.2-1.3) mg/dl AST 179 H D (17-59) U/L ALT 142 H D (21-72) U/L Alkaline Phosphatase 108 (38-126) U/L NT-Pro-B Natriuret Pep 85725 H (0-900) pg/ml Total Protein 6.0 L (6.3-8.2) G/DL Albumin 3.4 L D (3.5-5.0) g/dL Globulin 2.6 (2.2-3.9) gm/dL Albumin/Globulin Ratio 1.3 (1.0-2.1) IgE (<ph=034) kU/L Thyroperoxidase Ab (<9) IU/mL Thyroglobulin Antibody (< OR = 1) IU/mL 03/18/18 03/15/18 Range/Units 04:28 06:00 WBC (4.8-10.8) K/uL RBC (4.40-5.90) Mil/uL Hgb (12.0-18.0) g/dL Hct (35.0-51.0) % MCV (80.0-94.0) fl MCH (27.0-31.0) pg MCHC (33.0-37.0) g/dL RDW (11.5-14.5) % Plt Count (130-400) K/uL PT (9.8-13.1) Seconds INR pCO2 33 L (35-45) mm/Hg pO2 97 (80-100) mm/Hg HCO3 20.7 L (21-28) mmol/L ABG pH 7.37 (7.35-7.45) ABG Total CO2 20.1 L (22-28) mmol/L ABG O2 Saturation 98.9 H (95-98) % ABG O2 Content 15.1 (15-23) ML/dL ABG Base Excess -5.4 L (-2.0-3.0) mmol/L ABG Hemoglobin 11.1 L (11.7-17.4) g/dL ABG Carboxyhemoglobin 2.1 H (0.5-1.5) % POC ABG HHb (Measured) 1.1 (0.0-5.0) % ABG Methemoglobin 1.1 (0.0-3.0) % ABG O2 Capacity 15.3 L (16-24) mL/dL Chris Test Yes A-a O2 Difference 76.0 mm/Hg Hgb O2 Saturation 95.7 (95.0-98.0) % Vent Mode A/c Mechanical Rate 12 FiO2 30.0 % Tidal Volume 500 PEEP 5 Sodium (132-148) mmol/l Potassium (3.6-5.0) MMOL/L Chloride (98-107) mmol/L Carbon Dioxide (22-30) mmol/L Anion Gap (10-20) BUN (9-20) mg/dl Creatinine (0.8-1.5) mg/dl Est GFR ( Amer) Est GFR (Non-Af Amer) Random Glucose (75-110) mg/dL Calcium (8.4-10.2) mg/dL Total Bilirubin (0.2-1.3) mg/dl AST (17-59) U/L ALT (21-72) U/L Alkaline Phosphatase (38-126) U/L NT-Pro-B Natriuret Pep (0-900) pg/ml Total Protein (6.3-8.2) G/DL Albumin (3.5-5.0) g/dL Globulin (2.2-3.9) gm/dL Albumin/Globulin Ratio (1.0-2.1) IgE 1011 H (<xp=190) kU/L Thyroperoxidase Ab <1 (<9) IU/mL Thyroglobulin Antibody <1 (< OR = 1) IU/mL Laboratory Results - last 24 hr 03/15/18 03/18/18 03/18/18 06:00 04:28 05:00 WBC RBC Hgb Hct MCV MCH MCHC RDW Plt Count PT INR pCO2 33 L pO2 97 HCO3 20.7 L ABG pH 7.37 ABG Total CO2 20.1 L ABG O2 Saturation 98.9 H ABG O2 Content 15.1 ABG Base Excess -5.4 L ABG Hemoglobin 11.1 L ABG Carboxyhemoglobin 2.1 H POC ABG HHb (Measured) 1.1 ABG Methemoglobin 1.1 ABG O2 Capacity 15.3 L Chris Test Yes A-a O2 Difference 76.0 Hgb O2 Saturation 95.7 Vent Mode A/c Mechanical Rate 12 FiO2 30.0 Tidal Volume 500 PEEP 5 Sodium 140 Potassium 3.7 Chloride 105 Carbon Dioxide 20 L Anion Gap 19 BUN 16 Creatinine 0.9 Est GFR ( Amer) > 60 Est GFR (Non-Af Amer) > 60 Random Glucose 74 L Calcium 8.1 L Total Bilirubin 2.2 H AST 179 H D ALT 142 H D Alkaline Phosphatase 108 NT-Pro-B Natriuret Pep 58744 H Total Protein 6.0 L Albumin 3.4 L D Globulin 2.6 Albumin/Globulin Ratio 1.3 IgE 1011 H Thyroperoxidase Ab <1 Thyroglobulin Antibody <1 03/18/18 03/18/18 05:00 09:39 WBC 6.4 RBC 3.55 L Hgb 11.1 L Hct 33.9 L MCV 95.6 H MCH 31.3 H MCHC 32.7 L RDW 21.2 H Plt Count 103 L PT 25.7 H INR 2.3 pCO2 pO2 HCO3 ABG pH ABG Total CO2 ABG O2 Saturation ABG O2 Content ABG Base Excess ABG Hemoglobin ABG Carboxyhemoglobin POC ABG HHb (Measured) ABG Methemoglobin ABG O2 Capacity Chris Test A-a O2 Difference Hgb O2 Saturation Vent Mode Mechanical Rate FiO2 Tidal Volume PEEP Sodium Potassium Chloride Carbon Dioxide Anion Gap BUN Creatinine Est GFR ( Amer) Est GFR (Non-Af Amer) Random Glucose Calcium Total Bilirubin AST ALT Alkaline Phosphatase NT-Pro-B Natriuret Pep Total Protein Albumin Globulin Albumin/Globulin Ratio IgE Thyroperoxidase Ab Thyroglobulin Antibody Fingerstick Blood Sugar Results: 88 Review of Systems - Review of Systems Systems not reviewed;Unavailable: Intubated Critical Care Progress Note - Nutrition Nutrition: Nutrition Category Date Time Status NPO Diet [DIET] Diets 03/17/18 Lunch Active Assessment/Plan (1) Acute respiratory failure Assessment and plan: 77yo M. PMHx CVA, hepatitis A & B, CHF, PPM, COPD, care home resident, mild to moderate dementia. (03/12) p/w AMS, weakness, jaundice, transaminitis. admitted to Telemetry, deteriorated and intubated (03/16) for acute respiratory failure. Neuro: versed prn pushes for agitation only. Pulm: acute respiratory failure, on vent. pulmonary edema, diuresing. most likely secondary to severe chronic systolic congestive heart failure. starting PS trials. CV: hypotensive, titrating down levophed. holding coreg, Hem: Elevated INR with bloody output from OGT decreasing, transfusing 3 units FFP (4 units 03/17) to reverse INR with Vitamin K. Thrombocytopenia. Renal: positive volume status, diuresing with lasix IV q12h and albumin drip. Endo: no acute issues GI: NPO. GI consulted, will scope once more stable or if bleeding becomes worse. protonix IV q12h for possible bleeding ulcer. ID: stopped all abx, no source of sepsis. DVT proph - SCD's GI proph - protonix IV q12h benitez for strict I/O's during acute illness Code status - full code Critical Care Time spent 35 minutes Multi-disciplinary rounds were performed with house staff, nursing, speech therapy, respiratory therapy, pharmacy and nutrition with integrated input from the primary team/attending and other consulting services. The documented time is cumulative and includes review of patient data/exams/labs/chart review and examination of the patient on rounds and throughout the day; time is exclusive of any procedures or teaching time. Current Visit: Yes Status: Acute
[2018-03-18] MEDS ORDERED: Phytonadione 10 MG in Sodium Chloride 0.9% 50 ML IV ONE (13:00)
--- NOTE | 2018-03-18 15:23 | CP.PCM.PN ---
Subjective - Date & Time of Evaluation Date of Evaluation: 03/18/18 Time of Evaluation: 10:00 - Subjective Subjective: F/U Acute Respiratory Failure intubated, nurses reported bloody secretion aspiration of ET tube, response to tactil stimuli, following simple commands Objective - Vital Signs/Intake and Output Vital Signs (last 24 hours): Temp Pulse Resp BP Pulse Ox 97.7 F 94 H 16 99/70 L 100 03/18/18 12:00 03/18/18 12:00 03/18/18 12:00 03/18/18 12:00 03/18/18 12:00 Intake and Output: 03/18/18 03/18/18 06:59 18:59 Intake Total 1742 340 Output Total 1400 1200 Balance 342 -860 - Medications Medications: Current Medications Acetaminophen (Tylenol 325mg Tab) 650 mg PO Q4 PRN PRN Reason: Pain, Mild (1-3) Albuterol/Ipratropium (Duoneb 3 Mg/0.5 Mg (3 Ml) Ud) 3 ml INH RQ6 EUGENIO Last Admin: 03/18/18 13:30 Dose: 3 ml Bisacodyl (Dulcolax) 10 mg [place] DAILY PRN PRN Reason: No bowel movement x3days Furosemide (Lasix) 40 mg IV Q12H EUGENIO Last Admin: 03/18/18 04:33 Dose: 40 mg Magnesium Hydroxide (Milk Of Magnesia) 30 ml PO HS PRN PRN Reason: No bowel movement x2 days Midazolam HCl (Versed Inj) 2 mg IV Q6H PRN PRN Reason: Agitation Last Admin: 03/18/18 08:28 Dose: 2 mg Mrmqo-4-Puob Ethyl Esters (Lovaza) 1 gm PO Q12 EUGENIO Last Admin: 03/18/18 08:30 Dose: Not Given Oxymetazoline HCl (Nasal Decongestant 15 Ml) 1 spr NS Q12 PRN PRN Reason: Nasal congestion Last Admin: 03/16/18 16:47 Dose: 1 spr Tamsulosin HCl (Flomax) 0.4 mg PO QPM [facility] Last Admin: 03/16/18 19:50 Dose: Not Given - Labs Labs: 03/18/18 05:00 03/18/18 05:00 PT 25.7 Seconds (9.8-13.1) H 03/18/18 09:39 INR 2.3 03/18/18 09:39 APTT 38.5 Seconds (25.6-37.1) H 03/16/18 23:40 - Constitutional Appears: Chronically Ill - Head Exam Head Exam: NORMAL INSPECTION - Eye Exam Eye Exam: PERRL - ENT Exam Additional comments: Intubated - Neck Exam Neck Exam: Normal Inspection - Respiratory Exam Respiratory Exam: Decreased Breath Sounds (at bases), Rhonchi - Cardiovascular Exam Cardiovascular Exam: REGULAR RHYTHM - GI/Abdominal Exam GI & Abdominal Exam: Soft, Normal Bowel Sounds - Extremities Exam Extremities Exam: Pedal Edema Additional comments: R-L TKR, edema - Neurological Exam Additional comments: Intubated, response to tactil and verbal stimuli opening eyes, following simple commands - Skin Skin Exam: Pallor Additional comments: Jaundice. Assessment and Plan (1) Acute respiratory failure Status: Acute (2) CHF (congestive heart failure) Assessment & Plan: acute on chronic systolic Status: Chronic (3) Altered mental status Status: Acute (4) UTI (urinary tract infection) Status: Acute (5) Difficulty with speech Status: Chronic (6) History of permanent cardiac pacemaker placement Status: Deleted (7) CAD (coronary artery disease) Status: Chronic (8) Generalized weakness Status: Chronic (9) Anxiety Status: Chronic (10) Jaundice Status: Acute (11) Bleeding Status: Acute - Assessment and Plan (Free Text) Plan: ventilatory support, FFP transfusion, Vit K, Levophed drip, Lasix, agitated at times requiring Versed IV, Hgb 11.1 stable , INR 2.3, Liver enzymes and BMP elevated but trending down, T Bili 2.2, CXR no change in pulmonary edema and pleural effusion Critical care time: 35 min.
[2018-03-18] MEDS ORDERED: Pantoprazole 40 mg Susp UD PO SCH (17:00)
--- NOTE | 2018-03-18 17:39 | CP.PCM.PN ---
Subjective - Date & Time of Evaluation Date of Evaluation: 03/18/18 Time of Evaluation: 17:34 - Subjective Subjective: GII Fellow PGY4, Progress note. Patient is able to open eyes. Does not appear to be in distress or in pain. No acute events overnight. Unable to obtain 12pt ROS due to intubation Objective - Vital Signs/Intake and Output Vital Signs (last 24 hours): Temp Pulse Resp BP Pulse Ox 97.7 F 89 14 110/45 L 100 03/18/18 16:00 03/18/18 16:00 03/18/18 16:00 03/18/18 16:58 03/18/18 16:00 Intake and Output: 03/18/18 03/18/18 06:59 18:59 Intake Total 1742 360 Output Total 1400 1200 Balance 342 -840 - Medications Medications: Current Medications Acetaminophen (Tylenol 325mg Tab) 650 mg PO Q4 PRN PRN Reason: Pain, Mild (1-3) Albuterol/Ipratropium (Duoneb 3 Mg/0.5 Mg (3 Ml) Ud) 3 ml INH RQ6 EUGENIO Last Admin: 03/18/18 13:30 Dose: 3 ml Bisacodyl (Dulcolax) 10 mg [place] DAILY PRN PRN Reason: No bowel movement x3days Furosemide (Lasix) 40 mg IV Q12H EUGENIO Last Admin: 03/18/18 16:58 Dose: 40 mg Magnesium Hydroxide (Milk Of Magnesia) 30 ml PO HS PRN PRN Reason: No bowel movement x2 days Midazolam HCl (Versed Inj) 2 mg IV Q6H PRN PRN Reason: Agitation Last Admin: 03/18/18 08:28 Dose: 2 mg Pnoef-0-Rykg Ethyl Esters (Lovaza) 1 gm PO Q12 EUGENIO Last Admin: 03/18/18 08:30 Dose: Not Given Oxymetazoline HCl (Nasal Decongestant 15 Ml) 1 spr NS Q12 PRN PRN Reason: Nasal congestion Last Admin: 03/16/18 16:47 Dose: 1 spr Tamsulosin HCl (Flomax) 0.4 mg PO QPM EUGENIO Last Admin: 03/16/18 19:50 Dose: Not Given - Labs Labs: 03/18/18 05:00 03/18/18 05:00 PT 25.7 Seconds (9.8-13.1) H 03/18/18 09:39 INR 2.3 03/18/18 09:39 APTT 38.5 Seconds (25.6-37.1) H 03/16/18 23:40 - Constitutional Appears: Non-toxic, No Acute Distress, Chronically Ill - Head Exam Head Exam: NORMAL INSPECTION - Eye Exam Eye Exam: Normal appearance - ENT Exam Additional comments: Intubated - Respiratory Exam Respiratory Exam: Clear to Ausculation Bilateral, NORMAL BREATHING PATTERN. absent: Wheezes - Cardiovascular Exam Cardiovascular Exam: Tachycardia, +S1, +S2 - GI/Abdominal Exam GI & Abdominal Exam: Distended, Normal Bowel Sounds. absent: Tenderness - Extremities Exam Extremities Exam: Normal Inspection - Neurological Exam Neurological Exam: Alert, Awake. absent: Oriented x3 - Psychiatric Exam Psychiatric exam: Depressed, Flat Affect - Skin Skin Exam: Dry, Normal Color Additional comments: Anasarca Assessment and Plan - Assessment and Plan (Free Text) Assessment: #Ascites #Elevated liver enzymes #Hepatosteatosis #Questionable GI Bleed #CAD #CVA #COPD Plan: -Continue supportive/critical care -Imaging findings noted for worsening ascites, normal CBD, hepatomegaly -Hb stable, doubt active GI bleed at this time. -Dx/Tx paracentesis when stable. Recommend Standard work-up. Serum/ascites TP important to r/o cardiac causes. -Continue PPI -No endoscopic procedures planned at this time.
--- NOTE | 2018-03-18 23:55 | CP.PCM.PN ---
Subjective - Date & Time of Evaluation Date of Evaluation: 03/18/18 Time of Evaluation: 23:00 Objective - Vital Signs/Intake and Output Vital Signs (last 24 hours): Temp Pulse Resp BP Pulse Ox 97.7 F 92 H 21 102/66 97 03/18/18 20:00 03/18/18 20:00 03/18/18 20:00 03/18/18 20:00 03/18/18 20:00 Intake and Output: 03/18/18 03/19/18 18:59 06:59 Intake Total 950 300 Output Total 3600 Balance -2650 300 - Medications Medications: Current Medications Acetaminophen (Tylenol 325mg Tab) 650 mg PO Q4 PRN PRN Reason: Pain, Mild (1-3) Albuterol/Ipratropium (Duoneb 3 Mg/0.5 Mg (3 Ml) Ud) 3 ml INH RQ6 EUGENIO Last Admin: 03/18/18 19:08 Dose: 3 ml Bisacodyl (Dulcolax) 10 mg [place] DAILY PRN PRN Reason: No bowel movement x3days Furosemide (Lasix) 40 mg IV Q12H [facility] Last Admin: 03/18/18 16:58 Dose: 40 mg Magnesium Hydroxide (Milk Of Magnesia) 30 ml PO HS PRN PRN Reason: No bowel movement x2 days Midazolam HCl (Versed Inj) 2 mg IV Q6H PRN PRN Reason: Agitation Last Admin: 03/18/18 21:16 Dose: 2 mg Jdtds-1-Wxxg Ethyl Esters (Lovaza) 1 gm PO Q12 [facility] Last Admin: 03/18/18 21:00 Dose: Not Given Oxymetazoline HCl (Nasal Decongestant 15 Ml) 1 spr NS Q12 PRN PRN Reason: Nasal congestion Last Admin: 03/16/18 16:47 Dose: 1 spr Pantoprazole Sodium (Protonix Inj) 40 mg IVP Q12 [facility] Last Admin: 03/18/18 21:12 Dose: 40 mg Tamsulosin HCl (Flomax) 0.4 mg PO QPM [facility] Last Admin: 03/16/18 19:50 Dose: Not Given - Labs Labs: 03/18/18 05:00 03/18/18 05:00 PT 25.7 Seconds (9.8-13.1) H 03/18/18 09:39 INR 2.3 03/18/18 09:39 APTT 38.5 Seconds (25.6-37.1) H 03/16/18 23:40 Assessment and Plan (1) Acute respiratory failure Status: Acute (2) Altered mental status Status: Acute (3) Jaundice Status: Acute (4) CAD (coronary artery disease) Status: Chronic (5) CHF (congestive heart failure) Status: Chronic (6) History of permanent cardiac pacemaker placement Status: Chronic (7) COPD exacerbation Status: Resolved
[2018-03-19] MEDS: Albuterol-Ipratrop 3 mg / 0.5 (3 ml) UD INH SCH ×4 (01:05→20:13)
[2018-03-19] MEDS: Midazolam 2 MG/2 ML VIAL IV PRN ×2 (03:35→19:51)
[2018-03-19 04:37] LABS: ABG ALLEN TEST YES; ARTERIAL BLOOD GAS HEMOGLOBIN 11.4 g/dL (11.7-17.4); ARTERIAL BLOOD GAS O2 CAPACITY 15.7 mL/dL (16-24); ARTERIAL BLOOD GAS O2 CONTENT 15.6 ML/dL (15-23); ARTERIAL BLOOD GAS O2 SAT 99.3 % (95-98); ARTERIAL BLOOD GAS PCO2 37 mm/Hg (35-45); ARTERIAL BLOOD GAS PH 7.48 (7.35-7.45); ARTERIAL BLOOD GAS PO2 110 mm/Hg (80-100); ARTERIAL BLOOD GAS TCO2 28.7 mmol/L (22-28)
[2018-03-19 05:35] LABS: HEMOGLOBIN 11.4 g/dL (12.0-18.0); MEAN CELL VOLUME 94.5 fl (80.0-94.0); MEAN CORPUSCULAR HEMOGLOBIN 31.2 pg (27.0-31.0); RBC 3.66 Mil/uL (4.40-5.90); RED CELL DISTRIBUTION WIDTH 21.9 % (11.5-14.5); WHITE BLOOD COUNT 5.6 K/uL (4.8-10.8)
[2018-03-19 06:22] LABS: INR 1.9; PROTHROMBIN TIME 21.3 Seconds (9.8-13.1)
[2018-03-19 06:29] LABS: PARTIAL THROMBOPLASTIN TIME 26.3 Seconds (25.6-37.1)
[2018-03-19 06:54] LABS: BLOOD UREA NITROGEN 13 mg/dl (9-20); CALCIUM 8.1 mg/dL (8.4-10.2); GFR AFRICAN-AMERICAN > 60; GFR NON-AFRICAN AMERICAN > 60
[2018-03-19] MEDS: Potassium CL 10 MEQ/50 ML 50 ML IVPB SCH ×4 (08:14→13:04)
[2018-03-19] MEDS: Omega-3-Acid Ethyl Esters 1 GM Cap PO SCH ×2 (09:01→22:10)
--- NOTE | 2018-03-19 10:23 | CP.PCM.PN ---
Subjective - Date & Time of Evaluation Date of Evaluation: 03/19/18 Time of Evaluation: 10:22 - Subjective Subjective: GI Fellow PGY4, Progress note. No acute overnight events. Nurse reports blood secretions per ET tube. Objective - Vital Signs/Intake and Output Vital Signs (last 24 hours): Temp Pulse Resp BP Pulse Ox 98.6 F 91 H 12 94/55 L 97 03/19/18 08:00 03/19/18 08:00 03/19/18 08:00 03/19/18 08:00 03/19/18 08:00 Intake and Output: 03/19/18 03/19/18 06:59 18:59 Intake Total 560 Output Total 3200 Balance -2640 - Medications Medications: Current Medications Acetaminophen (Tylenol 325mg Tab) 650 mg PO Q4 PRN PRN Reason: Pain, Mild (1-3) Albuterol/Ipratropium (Duoneb 3 Mg/0.5 Mg (3 Ml) Ud) 3 ml INH RQ6 EUGENIO Last Admin: 03/19/18 07:51 Dose: 3 ml Bisacodyl (Dulcolax) 10 mg [place] DAILY PRN PRN Reason: No bowel movement x3days Furosemide (Lasix) 40 mg IV Q12H EUGENIO Last Admin: 03/19/18 04:04 Dose: Not Given Potassium Chloride (Potassium Cl 10meq/50ml Sterile Water) 50 mls @ 50 mls/hr IVPB Q1 EUGENIO Stop: 03/19/18 10:59 Last Admin: 03/19/18 09:50 Dose: 50 mls/hr Magnesium Hydroxide (Milk Of Magnesia) 30 ml PO HS PRN PRN Reason: No bowel movement x2 days Midazolam HCl (Versed Inj) 2 mg IV Q6H PRN PRN Reason: Agitation Last Admin: 03/19/18 03:35 Dose: 2 mg Kvpkc-1-Lsov Ethyl Esters (Lovaza) 1 gm PO Q12 EUGENIO Last Admin: 03/19/18 09:01 Dose: Not Given Oxymetazoline HCl (Nasal Decongestant 15 Ml) 1 spr NS Q12 PRN PRN Reason: Nasal congestion Last Admin: 03/16/18 16:47 Dose: 1 spr Pantoprazole Sodium (Protonix Inj) 40 mg IVP Q12 EUGENIO Last Admin: 03/19/18 09:01 Dose: 40 mg Tamsulosin HCl (Flomax) 0.4 mg PO QPM EUGENIO Last Admin: 03/16/18 19:50 Dose: Not Given - Labs Labs: 03/19/18 04:20 03/19/18 04:20 PT 21.3 Seconds (9.8-13.1) H 03/19/18 06:00 INR 1.9 03/19/18 06:00 APTT 26.3 Seconds (25.6-37.1) 03/19/18 06:00 - Constitutional Appears: Non-toxic, No Acute Distress, Chronically Ill - Head Exam Head Exam: ATRAUMATIC - Eye Exam Eye Exam: EOMI, Normal appearance - ENT Exam Additional comments: Intubated. - Respiratory Exam Respiratory Exam: Clear to Ausculation Bilateral, Rales, NORMAL BREATHING PATTERN. absent: Wheezes - Cardiovascular Exam Cardiovascular Exam: REGULAR RHYTHM, +S1, +S2 - GI/Abdominal Exam GI & Abdominal Exam: Soft, Normal Bowel Sounds, Rebound. absent: Distended, Tenderness - Extremities Exam Extremities Exam: Normal Inspection - Neurological Exam Neurological Exam: absent: Normal Gait, Oriented x3 - Psychiatric Exam Psychiatric exam: absent: Normal Affect, Normal Mood - Skin Skin Exam: Dry Additional comments: Anasarca Assessment and Plan - Assessment and Plan (Free Text) Assessment: #Ascites #Elevated liver enzymes #Hepatosteatosis #Questionable GI Bleed #Acute systolic CHF - EF less than 25%, s/p ICD #CAD #CVA #COPD Plan: -Continue supportive/critical care -Imaging findings noted for worsening ascites, normal CBD, hepatomegaly -Hb stable, doubt active GI bleed at this time. -Recommend Dx/Tx paracentesis when stable. Recommend Standard work-up. Serum/ ascites TP important to r/o cardiac causes. -Continue PPI -No endoscopic procedures planned at this time.
--- NOTE | 2018-03-19 10:29 | RAD ---
Date of service: 03/19/2018 HISTORY: intubated COMPARISON: 03/18/2018. FINDINGS: Endotracheal tube terminates 1.0 cm proximal to the kailee. The nasogastric tube terminates in the stomach. The right IJV line terminates at the cavoatrial junction. LUNGS: There is worsening severe pulmonary venous congestion. There is worsening airspace disease in the lower lobes. PLEURA: Worsening pleural effusions, no pneumothorax apparent. CARDIOVASCULAR: There is mild cardiomegaly and prominent central vasculature. Stable position of left-sided permanent pacing device. OSSEOUS STRUCTURES: No significant abnormalities. VISUALIZED UPPER ABDOMEN: Normal. OTHER FINDINGS: None. IMPRESSION: Worsening congestive heart failure with presumable pulmonary edema and layering effusions.
--- NOTE | 2018-03-19 10:52 | CP.CCUPN ---
Addendum entered and electronically signed by Sultan Lowry MD 03/19/18 14:26: [place] [address], [place] procalcitonin. Procalcitonin is pending. Original Note: <Sultan Essence - Last Filed: 03/19/18 12:32> CCU Subjective - Physician Review Subjective (Free Text): 03/19/18 9:45 Patient seen and examined at bedside with Dr. Barnard this morning. Pt is on ventilator and appears comfortable. Pt opens his eyes when calling his name. No acute overnight events. Has been afebrile. CCU Objective - Vital Signs / Intake & Output Vital Signs (Last 4 hours): Vital Signs Temp Pulse Resp BP Pulse Ox 03/19/18 08:00 98.6 F 91 H 12 94/55 L 97 Intake and Output (Last 8hrs): Intake & Output 03/18/18 03/19/18 03/19/18 22:59 06:59 14:59 Intake Total 900 260 Output Total 4400 1200 Balance -3500 -940 Weight 94.347 kg Intake: IV 0 Intake, Piggyback 20 Blood Product 630 260 Albumin 250 Output: Urine 4400 Urethral (Chen) 4400 Emesis 1200 - Physical Exam Head: Positive for: Atraumatic, Other (jaundiced) Extroacular Muscles: Positive for: EOMI Mouth: Positive for: Other (Intubated, scant bloody secretion seen in OG tube) Respiratory/Chest: Positive for: Rales. Negative for: Respiratory Distress, Accessory Muscle Use Cardiovascular: Positive for: Regular Rate and Rhythm, Normal S1, S2 Abdomen: Positive for: Distention (mild ), Normal Bowel Sounds. Negative for: Tenderness, Peritoneal Signs Lower Extremity: Positive for: Edema (3+ B/L lower extremities and edema of B/ L forearms and hands.) Neurological: Positive for: Other (Intubated, opens eyes when calling name) Psychiatric: Positive for: Alert. Negative for: Oriented x 3 - Medications Active Medications: Active Medications Generic Name Dose Route Start Last Admin Trade Name Freq PRN Reason Stop Dose Admin Acetaminophen 650 mg 03/13/18 01:35 Tylenol 325mg Tab PO Q4 PRN Pain, Mild (1-3) Albuterol/Ipratropium 3 ml 03/13/18 02:00 03/19/18 07:51 Duoneb 3 Mg/0.5 Mg (3 Ml) Ud INH 3 ml RQ6 EUGENIO Administration Bisacodyl 10 mg 03/13/18 01:35 Dulcolax [place] DAILY PRN No bowel movement x3days Furosemide 40 mg 03/19/18 17:00 Lasix IV Q8 EUGENIO Potassium Chloride 50 mls @ 50 mls/hr 03/19/18 07:00 03/19/18 09:50 Potassium Cl 10meq/50ml Sterile Water IVPB 03/19/18 10:59 50 mls/hr Q1 EUGENIO Administration Magnesium Hydroxide 30 ml 03/13/18 01:35 Milk Of Magnesia PO HS PRN No bowel movement x2 days Midazolam HCl 2 mg 03/17/18 10:45 03/19/18 03:35 Versed Inj IV 2 mg Q6H PRN Administration Agitation Vycxo-4-Ojlb Ethyl Esters 1 gm 03/13/18 09:00 03/19/18 09:01 Lovaza PO Not Given Q12 EUGENIO Oxymetazoline HCl 1 spr 03/16/18 16:36 03/16/18 16:47 Nasal Decongestant 15 Ml NS 1 spr Q12 PRN Administration Nasal congestion Pantoprazole Sodium 40 mg 03/18/18 21:00 03/19/18 09:01 Protonix Inj IVP 40 mg Q12 EUGENIO Administration Tamsulosin HCl 0.4 mg 03/13/18 18:00 03/16/18 19:50 Flomax PO Not Given QPM EUGENIO - Patient Studies Lab Studies: Microbiology Studies 03/16/18 07:00 MRSA Culture (Admit) - Final Nose MRSA NOT DETECTED Lab Studies 03/19/18 03/19/18 03/19/18 Range/Units 06:00 04:22 04:20 WBC (4.8-10.8) K/uL RBC (4.40-5.90) Mil/uL Hgb (12.0-18.0) g/dL Hct (35.0-51.0) % MCV (80.0-94.0) fl MCH (27.0-31.0) pg MCHC (33.0-37.0) g/dL RDW (11.5-14.5) % Plt Count (130-400) K/uL PT 21.3 H (9.8-13.1) Seconds INR 1.9 APTT 26.3 (25.6-37.1) Seconds pCO2 37 (35-45) mm/Hg pO2 110 H (80-100) mm/Hg HCO3 28.0 (21-28) mmol/L ABG pH 7.48 H (7.35-7.45) ABG Total CO2 28.7 H (22-28) mmol/L ABG O2 Saturation 99.3 H (95-98) % ABG O2 Content 15.6 (15-23) ML/dL ABG Base Excess 4.0 H (-2.0-3.0) mmol/L ABG Hemoglobin 11.4 L (11.7-17.4) g/dL ABG Carboxyhemoglobin 1.9 H (0.5-1.5) % POC ABG HHb (Measured) 0.7 (0.0-5.0) % ABG Methemoglobin 1.3 (0.0-3.0) % ABG O2 Capacity 15.7 L (16-24) mL/dL Chris Test Yes A-a O2 Difference 58.0 mm/Hg Hgb O2 Saturation 96.2 (95.0-98.0) % Vent Mode A/c Mechanical Rate 12 FiO2 30.0 % Tidal Volume 500 PEEP 5 Sodium 142 (132-148) mmol/l Potassium 2.8 L (3.6-5.0) MMOL/L Chloride 105 (98-107) mmol/L Carbon Dioxide 26 (22-30) mmol/L Anion Gap 14 (10-20) BUN 13 (9-20) mg/dl Creatinine 0.9 (0.8-1.5) mg/dl Est GFR ( Amer) > 60 Est GFR (Non-Af Amer) > 60 Random Glucose 54 L (75-110) mg/dL Calcium 8.1 L (8.4-10.2) mg/dL Anti-Smooth Muscle Ab (Negative) Tot Complement (CH50) (31-60) U/mL 03/19/18 03/18/18 03/15/18 Range/Units 04:20 09:39 06:00 WBC 5.6 (4.8-10.8) K/uL RBC 3.66 L (4.40-5.90) Mil/uL Hgb 11.4 L (12.0-18.0) g/dL Hct 34.6 L (35.0-51.0) % MCV 94.5 H (80.0-94.0) fl MCH 31.2 H (27.0-31.0) pg MCHC 33.0 (33.0-37.0) g/dL RDW 21.9 H (11.5-14.5) % Plt Count 91 L (130-400) K/uL PT 25.7 H (9.8-13.1) Seconds INR 2.3 APTT (25.6-37.1) Seconds pCO2 (35-45) mm/Hg pO2 (80-100) mm/Hg HCO3 (21-28) mmol/L ABG pH (7.35-7.45) ABG Total CO2 (22-28) mmol/L ABG O2 Saturation (95-98) % ABG O2 Content (15-23) ML/dL ABG Base Excess (-2.0-3.0) mmol/L ABG Hemoglobin (11.7-17.4) g/dL ABG Carboxyhemoglobin (0.5-1.5) % POC ABG HHb (Measured) (0.0-5.0) % ABG Methemoglobin (0.0-3.0) % ABG O2 Capacity (16-24) mL/dL Chris Test A-a O2 Difference mm/Hg Hgb O2 Saturation (95.0-98.0) % Vent Mode Mechanical Rate FiO2 % Tidal Volume PEEP Sodium (132-148) mmol/l Potassium (3.6-5.0) MMOL/L Chloride (98-107) mmol/L Carbon Dioxide (22-30) mmol/L Anion Gap (10-20) BUN (9-20) mg/dl Creatinine (0.8-1.5) mg/dl Est GFR ( Amer) Est GFR (Non-Af Amer) Random Glucose (75-110) mg/dL Calcium (8.4-10.2) mg/dL Anti-Smooth Muscle Ab Negative (Negative) Tot Complement (CH50) (31-60) U/mL 03/15/18 Range/Units 06:00 WBC (4.8-10.8) K/uL RBC (4.40-5.90) Mil/uL Hgb (12.0-18.0) g/dL Hct (35.0-51.0) % MCV (80.0-94.0) fl MCH (27.0-31.0) pg MCHC (33.0-37.0) g/dL RDW (11.5-14.5) % Plt Count (130-400) K/uL PT (9.8-13.1) Seconds INR APTT (25.6-37.1) Seconds pCO2 (35-45) mm/Hg pO2 (80-100) mm/Hg HCO3 (21-28) mmol/L ABG pH (7.35-7.45) ABG Total CO2 (22-28) mmol/L ABG O2 Saturation (95-98) % ABG O2 Content (15-23) ML/dL ABG Base Excess (-2.0-3.0) mmol/L ABG Hemoglobin (11.7-17.4) g/dL ABG Carboxyhemoglobin (0.5-1.5) % POC ABG HHb (Measured) (0.0-5.0) % ABG Methemoglobin (0.0-3.0) % ABG O2 Capacity (16-24) mL/dL Chris Test A-a O2 Difference mm/Hg Hgb O2 Saturation (95.0-98.0) % Vent Mode Mechanical Rate FiO2 % Tidal Volume PEEP Sodium (132-148) mmol/l Potassium (3.6-5.0) MMOL/L Chloride (98-107) mmol/L Carbon Dioxide (22-30) mmol/L Anion Gap (10-20) BUN (9-20) mg/dl Creatinine (0.8-1.5) mg/dl Est GFR ( Amer) Est GFR (Non-Af Amer) Random Glucose (75-110) mg/dL Calcium (8.4-10.2) mg/dL Anti-Smooth Muscle Ab (Negative) Tot Complement (CH50) 47 (31-60) U/mL Laboratory Results - last 24 hr 03/15/18 03/15/18 03/18/18 06:00 06:00 09:39 WBC RBC Hgb Hct MCV MCH MCHC RDW Plt Count PT 25.7 H INR 2.3 APTT pCO2 pO2 HCO3 ABG pH ABG Total CO2 ABG O2 Saturation ABG O2 Content ABG Base Excess ABG Hemoglobin ABG Carboxyhemoglobin POC ABG HHb (Measured) ABG Methemoglobin ABG O2 Capacity Chris Test A-a O2 Difference Hgb O2 Saturation Vent Mode Mechanical Rate FiO2 Tidal Volume PEEP Sodium Potassium Chloride Carbon Dioxide Anion Gap BUN Creatinine Est GFR ( Amer) Est GFR (Non-Af Amer) Random Glucose Calcium Anti-Smooth Muscle Ab Negative Tot Complement (CH50) 47 03/19/18 03/19/18 03/19/18 04:20 04:20 04:22 WBC 5.6 RBC 3.66 L Hgb 11.4 L Hct 34.6 L MCV 94.5 H MCH 31.2 H MCHC 33.0 RDW 21.9 H Plt Count 91 L PT INR APTT pCO2 37 pO2 110 H HCO3 28.0 ABG pH 7.48 H ABG Total CO2 28.7 H ABG O2 Saturation 99.3 H ABG O2 Content 15.6 ABG Base Excess 4.0 H ABG Hemoglobin 11.4 L ABG Carboxyhemoglobin 1.9 H POC ABG HHb (Measured) 0.7 ABG Methemoglobin 1.3 ABG O2 Capacity 15.7 L Chris Test Yes A-a O2 Difference 58.0 Hgb O2 Saturation 96.2 Vent Mode A/c Mechanical Rate 12 FiO2 30.0 Tidal Volume 500 PEEP 5 Sodium 142 Potassium 2.8 L Chloride 105 Carbon Dioxide 26 Anion Gap 14 BUN 13 Creatinine 0.9 Est GFR ( Amer) > 60 Est GFR (Non-Af Amer) > 60 Random Glucose 54 L Calcium 8.1 L Anti-Smooth Muscle Ab Tot Complement (CH50) 03/19/18 06:00 WBC RBC Hgb Hct MCV MCH MCHC RDW Plt Count PT 21.3 H INR 1.9 APTT 26.3 pCO2 pO2 HCO3 ABG pH ABG Total CO2 ABG O2 Saturation ABG O2 Content ABG Base Excess ABG Hemoglobin ABG Carboxyhemoglobin POC ABG HHb (Measured) ABG Methemoglobin ABG O2 Capacity Chris Test A-a O2 Difference Hgb O2 Saturation Vent Mode Mechanical Rate FiO2 Tidal Volume PEEP Sodium Potassium Chloride Carbon Dioxide Anion Gap BUN Creatinine Est GFR ( Amer) Est GFR (Non-Af Amer) Random Glucose Calcium Anti-Smooth Muscle Ab Tot Complement (CH50) Fingerstick Blood Sugar Results: 88 Review of Systems - Review of Systems Review of Systems: ROS: unable to assess since pt is intubated Critical Care Progress Note - Nutrition Nutrition: Nutrition Category Date Time Status NPO Diet [DIET] Diets 03/17/18 Lunch Active Assessment/Plan - Assessment and Plan (Free Text) Assessment: 77 yo male with PMHx CVA, hepatitis A & B, CHF, AICD, COPD, group home resident, mild to moderate dementia. Pt was admitted to telemetry on 03/12 for AMS, weakness, jaundice, transaminitis. FURNITURE FINISHER HELPER was called on 03/16/18 for worsening dyspnea. Pt was subsequently intubated and admitted to ICU on 03/16 for acute respiratory failure. Neuro: -On Versed 2 mg IV Q6 prn for agitation. Pulmonary: -Activities Specialist Dr. Mueller on board -Acute respiratory failure s/p intubation on 03/16/18 -CXR shows worsening severe pulmonary venous congestion and pleural effusions likely secondary to severe chronic systolic congestive heart failure. -Increase lasix to 40 mg IVP q8hr. Pt is diuresing. -f/u procalcitonin and sputum c&s Cardiovascular: -Tax Services Intern Dr. Peralta on board -Hypotension: SBP in 90's-100's Last levophed 16 mg dose on 03/17/18 at 14:23. -CHF: procalitonin [id number]. On lasix and diuresing. GI: -GI on board -Stable H&H 11.4/34.6. -Continue protonix IV q12h for possible bleeding ulcer. -Transaminitis trending down (AST 179, ALT 142) -CT of abdomen and pelvis on 03/12/18 shows moderate abdomen and pelvis ascites. Renal: -Strict monitor of Intake and output -diuresing. Will increase diuresing with lasix 40 mg IVP q81h -Hypokalemia:Potassium 2.8 this morning. 40 meq KCl received this morning. Endo: -Hypoglycemia: glucose 54 this morning -Start Jevity 10 ml/hr with OGT tube Hematology: -INR trending down (1.9 this morning) s/p 9 units FFP in total with Vitamin K -Scant bloody output from OG tube. -Thrombocytopenia: platelet 91 this morning.continue to monitor ID: -stopped all abx, no source of sepsis. DVT prophylaxis - SCD's GI prophylaxis - protonix IV q12h Code status - full code <Miquel Barnard - Last Filed: 03/19/18 16:01> CCU Subjective - Physician Review Subjective (Free Text): Attestation: Patient seen and examined at the bedside with Resident Dr. Darell Lowry; and I agree with his outline of plans and management documented below as discussed on AM rounds reflecting my review of all applicable clinical data, and participation in the care of the patient throughout the day in ICU; today, March 19, 2018. Patient is awake and looks toward verbal stimuli, but not following commands, breathing 12 on AC 12, SPo2 reduced to 30% so far, Significant diuresis noted over the last 24H, with negative fluid balance over 5.0L. He remains off Levophed since yesterday, SBP remains borderline, but MAPs are at or above 65. Urine output remains brisk and Lasix-responsive. CXR shows asymmetric interstitial changes with suggestion of R- sided Pneumonia. No gross red bloody active bleeding evident with INR down to 1.9, but serosang tracheal secretions noted on suctioning. OGT draining bilious fluid. ECHO last month shows 20-25% EF with moderate pulm HTN. VBG sows normal lactate level with mixed venous SvO2 at 81%. Will not start inotropes at this time. Will discuss with Cardiology. Procalcitonin level pending, if no significant improvement in interstitial changes as seen on CXR after this much diuresis, then suspect underlying pneumonitis despite no leukocytosis or fevers. Sputum Cx obtained today. Would resume empiric abx coverage: had been on Rocephin / Clinda. Mild elevation seen in Bilirubin levels, no evidence of hemolysis, transaminases improving, all ?? 2 shock liver from previous hypotension, versus hepatic congestion / intrahepatic cholestasis. As fiO2 requirements and neuromental status improves further, will consider extubation soon.
[2018-03-19 10:59] LABS: VENOUS BLOOD GAS BASE EXCESS 5.4 mmol/L (0.0-2.0); VENOUS BLOOD GAS PCO2 42 mmHg (40-60); VENOUS BLOOD GAS PO2 54 mm/Hg (30-55); VENOUS BLOOD PH 7.46 (7.32-7.43)
--- NOTE | 2018-03-19 13:46 | CP.PCM.PN ---
Subjective - Date & Time of Evaluation Date of Evaluation: 03/19/18 Time of Evaluation: 13:45 - Subjective Subjective: on vent Objective - Vital Signs/Intake and Output Vital Signs (last 24 hours): Temp Pulse Resp BP Pulse Ox 98.8 F 92 H 12 92/58 L 100 03/19/18 12:00 03/19/18 12:00 03/19/18 12:00 03/19/18 12:00 03/19/18 12:00 Intake and Output: 03/19/18 03/19/18 06:59 18:59 Intake Total 560 50 Output Total 3200 1000 Balance -2640 -950 - Medications Medications: Current Medications Acetaminophen (Tylenol 325mg Tab) 650 mg PO Q4 PRN PRN Reason: Pain, Mild (1-3) Albuterol/Ipratropium (Duoneb 3 Mg/0.5 Mg (3 Ml) Ud) 3 ml INH RQ6 EUGENIO Last Admin: 03/19/18 13:41 Dose: 3 ml Bisacodyl (Dulcolax) 10 mg [place] DAILY PRN PRN Reason: No bowel movement x3days Furosemide (Lasix) 40 mg IV Q8@0500,1300,2100 EUGENIO Magnesium Hydroxide (Milk Of Magnesia) 30 ml PO HS PRN PRN Reason: No bowel movement x2 days Midazolam HCl (Versed Inj) 2 mg IV Q6H PRN PRN Reason: Agitation Last Admin: 03/19/18 03:35 Dose: 2 mg Mgckt-5-Owcs Ethyl Esters (Lovaza) 1 gm PO Q12 [facility] Last Admin: 03/19/18 09:01 Dose: Not Given Oxymetazoline HCl (Nasal Decongestant 15 Ml) 1 spr NS Q12 PRN PRN Reason: Nasal congestion Last Admin: 03/16/18 16:47 Dose: 1 spr Pantoprazole Sodium (Protonix Inj) 40 mg IVP Q12 EUGENIO Last Admin: 03/19/18 09:01 Dose: 40 mg Tamsulosin HCl (Flomax) 0.4 mg PO QPM [facility] Last Admin: 03/16/18 19:50 Dose: Not Given - Labs Labs: 03/19/18 04:20 03/19/18 04:20 PT 21.3 Seconds (9.8-13.1) H 03/19/18 06:00 INR 1.9 03/19/18 06:00 APTT 26.3 Seconds (25.6-37.1) 03/19/18 06:00 - Constitutional Appears: Confused, Chronically Ill - Head Exam Head Exam: ATRAUMATIC, NORMAL INSPECTION, NORMOCEPHALIC - Eye Exam Eye Exam: EOMI, Normal appearance, PERRL Pupil Exam: NORMAL ACCOMODATION, PERRL - ENT Exam ENT Exam: Mucous Membranes Moist, Normal Exam - Neck Exam Neck Exam: Full ROM, Normal Inspection. absent: Lymphadenopathy - Respiratory Exam Respiratory Exam: Clear to Ausculation Bilateral, NORMAL BREATHING PATTERN - Cardiovascular Exam Cardiovascular Exam: REGULAR RHYTHM, +S1, +S2. absent: Murmur - GI/Abdominal Exam GI & Abdominal Exam: Soft, Normal Bowel Sounds. absent: Tenderness - Extremities Exam Extremities Exam: Full ROM, Normal Capillary Refill, Normal Inspection. absent : Joint Swelling, Pedal Edema - Back Exam Back Exam: NORMAL INSPECTION - Neurological Exam Neurological Exam: Alert, Awake, CN II-XII Intact, Normal Gait, Oriented x3 - Psychiatric Exam Psychiatric exam: Normal Affect, Normal Mood - Skin Skin Exam: Dry, Intact, Normal Color, Warm Assessment and Plan (1) Acute respiratory failure Status: Acute (2) Altered mental status Status: Acute (3) Jaundice Status: Acute (4) CAD (coronary artery disease) Status: Chronic (5) CHF (congestive heart failure) Status: Chronic (6) History of permanent cardiac pacemaker placement Status: Chronic (7) COPD exacerbation Status: Resolved
[2018-03-19] MEDS ORDERED: Phytonadione 10 mg/ml Inj (Adult) IVPB ONE (13:48)
[2018-03-19] MEDS ORDERED: Phytonadione 10 MG in Sodium Chloride 0.9% 50 ML IV ONE (14:45)
--- NOTE | 2018-03-19 15:13 | CP.PCM.PN ---
Subjective - Date & Time of Evaluation Date of Evaluation: 03/19/18 Time of Evaluation: 12:50 - Subjective Subjective: F/U Acute Respiratory failure Intubated, open eyes to verbal and tactil stimuli, not following commands, Trachasp less bloody secretions as reported by nurses Objective - Vital Signs/Intake and Output Vital Signs (last 24 hours): Temp Pulse Resp BP Pulse Ox 98.8 F 96 H 12 127/67 100 03/19/18 12:00 03/19/18 14:00 03/19/18 14:00 03/19/18 14:00 03/19/18 14:00 Intake and Output: 03/19/18 03/19/18 06:59 18:59 Intake Total 560 260 Output Total 3200 1000 Balance -2640 -740 - Medications Medications: Current Medications Acetaminophen (Tylenol 325mg Tab) 650 mg PO Q4 PRN PRN Reason: Pain, Mild (1-3) Albuterol/Ipratropium (Duoneb 3 Mg/0.5 Mg (3 Ml) Ud) 3 ml INH RQ6 [facility] Last Admin: 03/19/18 13:41 Dose: 3 ml Bisacodyl (Dulcolax) 10 mg [place] DAILY PRN PRN Reason: No bowel movement x3days Furosemide (Lasix) 40 mg IV Q8@0500,1300,2100 [facility] Last Admin: 03/19/18 13:45 Dose: 40 mg Phytonadione 10 mg/ Sodium (Chloride) 51 mls @ 51 mls/hr IV ONCE ONE Stop: 03/19/18 15:44 Magnesium Hydroxide (Milk Of Magnesia) 30 ml PO HS PRN PRN Reason: No bowel movement x2 days Midazolam HCl (Versed Inj) 2 mg IV Q6H PRN PRN Reason: Agitation Last Admin: 03/19/18 03:35 Dose: 2 mg Pvaam-5-Oapa Ethyl Esters (Lovaza) 1 gm PO Q12 EUGENIO Last Admin: 03/19/18 09:01 Dose: Not Given Oxymetazoline HCl (Nasal Decongestant 15 Ml) 1 spr NS Q12 PRN PRN Reason: Nasal congestion Last Admin: 03/16/18 16:47 Dose: 1 spr Pantoprazole Sodium (Protonix Inj) 40 mg IVP Q12 EUGENIO Last Admin: 03/19/18 09:01 Dose: 40 mg Tamsulosin HCl (Flomax) 0.4 mg PO QPM EUGENIO Last Admin: 03/16/18 19:50 Dose: Not Given - Labs Labs: 03/19/18 04:20 03/19/18 04:20 PT 21.3 Seconds (9.8-13.1) H 03/19/18 06:00 INR 1.9 03/19/18 06:00 APTT 26.3 Seconds (25.6-37.1) 03/19/18 06:00 - Constitutional Appears: Chronically Ill - Head Exam Head Exam: NORMAL INSPECTION - Eye Exam Eye Exam: PERRL - ENT Exam Additional comments: Intubated. - Neck Exam Neck Exam: Normal Inspection Additional comments: R IJ TLC - Respiratory Exam Respiratory Exam: Decreased Breath Sounds (at bases), Rhonchi - Cardiovascular Exam Cardiovascular Exam: REGULAR RHYTHM - GI/Abdominal Exam GI & Abdominal Exam: Soft, Normal Bowel Sounds - Extremities Exam Extremities Exam: Pedal Edema Additional comments: R-L TKR, edema - Neurological Exam Additional comments: Intubated, open eyes to verbal and tactil stimuli, not following commands - Skin Skin Exam: Pallor Additional comments: Jaundice. Assessment and Plan (1) Acute respiratory failure Status: Acute (2) Altered mental status Status: Acute (3) CHF (congestive heart failure) Assessment & Plan: acute on chronic systolic Status: Chronic (4) UTI (urinary tract infection) Status: Acute (5) Difficulty with speech Status: Chronic (6) CAD (coronary artery disease) Status: Chronic (7) Bleeding Status: Acute (8) Anxiety Status: Chronic (9) Jaundice Status: Acute (10) AICD (automatic cardioverter/defibrillator) present Status: Chronic (11) COPD (chronic obstructive pulmonary disease) Status: Acute (12) Generalized weakness Status: Chronic - Assessment and Plan (Free Text) Plan: continue ventilatory support, DuoNeb, FFP transfusions , CXR worsening pulmonary edema and pleural effusions, Lasix, Primacor Versed IV PRN , Hgb 11.4, INR decreasing 1.9 , Hypokalemia, K replacement Critical care time: 40 minutes
[2018-03-19 16:38] LABS: BLOOD UREA NITROGEN 11 mg/dl (9-20); GFR AFRICAN-AMERICAN > 60; GFR NON-AFRICAN AMERICAN > 60
[2018-03-19] MEDS ORDERED: Potassium Chloride 20 mEq/15 ml LIQ UD GT ONE ×2 (16:49→19:00)
[2018-03-19] MEDS: Milrinone 20mg/100ml D5W 100 ML IV SCH (16:58)
[2018-03-19] MEDS: Potassium Chloride 20 mEq 100 ML IVPB SCH ×2 (17:37→20:29)
[2018-03-19] MEDS ORDERED: Potassium Chl 40mEq & D5W 1,000 ML IV SCH (19:30)
[2018-03-19] MEDS ORDERED: Dextrose 50% SYRINGE Inj (50 ml) ONE (19:49)
[2018-03-19] MEDS ORDERED: Dextrose 50% SYRINGE Inj (50 ml) IVP ONE (19:53)
[2018-03-19] MEDS ORDERED: Acetaminophen 650mg/20.3ml solution UD PO ONE (21:51)
[2018-03-19] MEDS ORDERED: Potassium Chloride 40 MEQ in Dextrose 5%/0.45% NS 1,000 ML IV SCH (23:00)
[2018-03-19] MEDS ORDERED: Potassium Chl 40 mEq in D5-1/2 1,000 ML IV SCH (23:00)
--- NOTE | 2018-03-20 00:14 | CON ---
Copied To: Fantasma Nash MD Attending MD: Fantasma Nash MD DATE: 03/19/2018 REASON FOR CONSULTATION: Possible epistaxis. REQUESTING PHYSICIAN: Mike Mueller MD HISTORY OF PRESENT ILLNESS: This is a 77-year-old male with a history of hepatitis and coagulopathy who was found unresponsive and noted to have blood in the oropharynx 3 days ago upon intubation. Patient was successfully intubated. He has had no bleeding from the nose. It was seen in oropharynx. He has had no bleeding since he was intubated and brought to the ICU. Patient is currently intubated and cannot give any further history. PAST MEDICAL HISTORY: As noted in the chart by me. MEDICATIONS: As noted in the chart by me. ALLERGIES: NOTED IN THE CHART BY ME. PHYSICAL EXAMINATION: HEAD: Atraumatic and normocephalic. FACE: Patient's face cannot be assessed well since the patient is intubated. Patient has a yellow tinge to the color of his skin. CONSTITUTIONAL: Well fed, well nourished. COMMUNICATION: Cannot be assessed since the patient is intubated. EXTERNAL NOSE AND EARS: No masses. No lesions. No erythema. No edema. INTERNAL NOSE: Deviated septum. No epistaxis. No masses. No lesions. No erythema. No edema. ORAL CAVITY AND OROPHARYNX: Limited exam secondary to ET tube. No masses. No lesions. No erythema. No edema. No bleeding. No bloody postnasal drip. LIPS AND GUMS: Limited exam secondary to ET tube. No masses. No lesions. No erythema. No edema. NECK: Supple. THYROID: No thyromegaly. No goiter. LYMPH NODES: No lymphadenopathy of the neck. ASSESSMENT: 1. Epistaxis, not noted. 2. Deviated septum. PLAN: Bleeding, most likely from a GI source. We recommend GI consult. Fantasma Nash MD
[2018-03-20] MEDS: Albuterol-Ipratrop 3 mg / 0.5 (3 ml) UD INH SCH ×4 (01:00→19:00)
[2018-03-20] MEDS: Milrinone 20mg/100ml D5W 100 ML IV SCH ×4 (01:48→19:48)
[2018-03-20] MEDS: Midazolam 2 MG/2 ML VIAL IV PRN (03:14)
[2018-03-20 05:26] LABS: ABG ALLEN TEST YES; ARTERIAL BLOOD GAS HCO3 31.1 mmol/L (21-28); ARTERIAL BLOOD GAS O2 CAPACITY 15.1 mL/dL (16-24); ARTERIAL BLOOD GAS O2 CONTENT 15.1 ML/dL (15-23); ARTERIAL BLOOD GAS O2 SAT 99.8 % (95-98); ARTERIAL BLOOD GAS PCO2 42 mm/Hg (35-45); ARTERIAL BLOOD GAS PH 7.49 (7.35-7.45); ARTERIAL BLOOD GAS PO2 117 mm/Hg (80-100); ARTERIAL BLOOD GAS TCO2 33.3 mmol/L (22-28)
--- NOTE | 2018-03-20 05:27 | CP.PCM.PCO ---
Physician Communication Note - Physician Communication Note Physician Communication Note: Levophed started because of Hypotension persistent MAP of 54
[2018-03-20 05:33] LABS: BASO % 0.8 % (0.0-2.0); EOS % 1.1 % (0.0-4.0); HEMOGLOBIN 10.9 g/dL (12.0-18.0); LYMPH # 0.9 K/uL (1.0-4.3); LYMPH % 19.6 % (20.0-40.0); MEAN CELL VOLUME 94.2 fl (80.0-94.0); MEAN CORPUSCULAR HEMOGLOBIN 30.6 pg (27.0-31.0); MEAN CORPUSCULAR HGB CONC 32.5 g/dL (33.0-37.0); MEAN PLATELET VOLUME 8.2 fl (7.2-11.7); MONO # 0.5 K/uL (0.0-0.8); MONO % 10.8 % (0.0-10.0); NEUT # 3.1 K/uL (1.8-7.0); NEUT % 67.7 % (50.0-75.0); NRBC % 0.3 % (0.0-0.0); RBC 3.55 Mil/uL (4.40-5.90); RED CELL DISTRIBUTION WIDTH 22.2 % (11.5-14.5); WHITE BLOOD COUNT 4.5 K/uL (4.8-10.8)
[2018-03-20 05:50] LABS: PROTHROMBIN TIME 22.1 Seconds (9.8-13.1)
[2018-03-20 05:53] LABS: PARTIAL THROMBOPLASTIN TIME 35.4 Seconds (25.6-37.1)
[2018-03-20 07:39] LABS: ALBUMIN 3.1 g/dL (3.5-5.0); BLOOD UREA NITROGEN 11 mg/dl (9-20); CALCIUM 8.2 mg/dL (8.4-10.2); GFR AFRICAN-AMERICAN > 60; GFR NON-AFRICAN AMERICAN > 60
[2018-03-20 07:40] LABS: ALB/GLOB RATIO 1.1 (1.0-2.1); ALT/SGPT 93 U/L (21-72); AST/SGOT 106 U/L (17-59)
--- NOTE | 2018-03-20 08:29 | RAD ---
Date of service: 03/20/2018 HISTORY: intubated COMPARISON: Portable chest 03/19/2018. FINDINGS: The endotracheal tube appears retracted to just above the level of the clavicles terminating some 9 cm of the kailee. Right central venous line appears unchanged in position with nasogastric tube not significantly changed. Pacemaker/AICD again identified. LUNGS: Pulmonary vascular congestion appears slightly improved with diminishing airspace disease at the bilateral mid to inferior lung zones. No pleural effusion or pneumothorax bilaterally. Cardiac size is stable. PLEURA: As above. CARDIOVASCULAR: As above. OSSEOUS STRUCTURES: No significant abnormalities. VISUALIZED UPPER ABDOMEN: Normal. OTHER FINDINGS: None. IMPRESSION: Improving pulmonary vascular congestion and potentially related bilateral mid to inferior airspace opacity. Endotracheal tube terminates above the level of clavicles. Consider advancing ET tube several cm antegrade with radiographic confirmation. Findings discussed with ICU Nurse Ross with written down and read back verification. 03/20/2018 8:22 a.m..
[2018-03-20] MEDS: Omega-3-Acid Ethyl Esters 1 GM Cap PO SCH ×2 (08:35→20:05)
--- NOTE | 2018-03-20 08:52 | CP.PCM.PN ---
<Noah Urena - Last Filed: 03/20/18 19:07> Subjective - Date & Time of Evaluation Date of Evaluation: 03/20/18 Time of Evaluation: 08:51 - Subjective Subjective: GI Fellow PGY4, progress note. Hypotension lastnight, restarted on levophed. Otherwise no acute events. Objective - Vital Signs/Intake and Output Vital Signs (last 24 hours): Temp Pulse Resp BP Pulse Ox 99.7 F H 116 H 14 94/57 L 97 03/20/18 08:00 03/20/18 08:00 03/20/18 08:00 03/20/18 08:00 03/20/18 08:00 Intake and Output: 03/20/18 03/20/18 06:59 18:59 Intake Total 1018 Output Total 2300 Balance -1282 - Medications Medications: Current Medications Acetaminophen (Tylenol 325mg Tab) 650 mg PO Q4 PRN PRN Reason: Pain, Mild (1-3) Albuterol/Ipratropium (Duoneb 3 Mg/0.5 Mg (3 Ml) Ud) 3 ml INH RQ6 EUGENIO Last Admin: 03/20/18 07:47 Dose: 3 ml Bisacodyl (Dulcolax) 10 mg AK DAILY PRN PRN Reason: No bowel movement x3days Furosemide (Lasix) 40 mg IV Q8@0500,1300,2100 EUGENIO Last Admin: 03/20/18 06:00 Dose: 40 mg Milrinone Lactate/Dextrose (Primacor 20mg/100ml D5w) 100 mls @ 10.614 mls/hr IV .Q9H26M EUGENIO; 0.375 MCG/KG/MIN PRN Reason: Protocol Last Admin: 03/20/18 01:48 Dose: 0.375 mcg/kg/min, 10.614 mls/hr Potassium Chloride/Dextrose/Sod Cl (Potassium Chl 40 Meq In D5-1/2ns) 1,000 mls @ 25 mls/hr IV .Q24H EUGENIO Last Admin: 03/19/18 23:59 Dose: 25 mls/hr Norepinephrine Bitartrate 8 mg (/ Dextrose) 258 mls @ 4.83 mls/hr IV .Q24H ONE ; 2.5 MCG/MIN PRN Reason: Protocol Stop: 03/21/18 01:21 Last Titration: 03/20/18 04:14 Dose: 17.5 mcg/min, 33.86 mls/hr Magnesium Hydroxide (Milk Of Magnesia) 30 ml PO HS PRN PRN Reason: No bowel movement x2 days Midazolam HCl (Versed Inj) 2 mg IV Q6H PRN PRN Reason: Agitation Last Admin: 03/20/18 03:14 Dose: 2 mg Ihvpm-5-Ejpv Ethyl Esters (Lovaza) 1 gm PO Q12 EUGENIO Last Admin: 03/20/18 08:35 Dose: 1 gm Oxymetazoline HCl (Nasal Decongestant 15 Ml) 1 spr NS Q12 PRN PRN Reason: Nasal congestion Last Admin: 03/16/18 16:47 Dose: 1 spr Pantoprazole Sodium (Protonix Inj) 40 mg IVP Q12 EUGENIO Last Admin: 03/20/18 08:36 Dose: 40 mg Tamsulosin HCl (Flomax) 0.4 mg PO QPM EUGENIO Last Admin: 03/16/18 19:50 Dose: Not Given - Labs Labs: 03/20/18 05:00 03/20/18 05:00 PT 22.1 Seconds (9.8-13.1) H 03/20/18 05:00 INR 2.0 03/20/18 05:00 APTT 35.4 Seconds (25.6-37.1) 03/20/18 05:00 - Constitutional Appears: Non-toxic, No Acute Distress, Chronically Ill - Head Exam Head Exam: ATRAUMATIC - Eye Exam Eye Exam: EOMI, Normal appearance - ENT Exam ENT Exam: Mucous Membranes Moist Additional comments: Intubated. - Respiratory Exam Respiratory Exam: Decreased Breath Sounds, Clear to Ausculation Bilateral, NORMAL BREATHING PATTERN. absent: Wheezes - Cardiovascular Exam Cardiovascular Exam: REGULAR RHYTHM, +S1, +S2 - GI/Abdominal Exam GI & Abdominal Exam: Normal Bowel Sounds - Extremities Exam Extremities Exam: Normal Inspection - Neurological Exam Neurological Exam: absent: Alert, Awake, Oriented x3 - Psychiatric Exam Psychiatric exam: absent: Normal Affect, Normal Mood - Skin Skin Exam: Dry, Intact Assessment and Plan - Assessment and Plan (Free Text) Assessment: #Ascites - likely cardiac #Elevated liver enzymes - likely due to right heart failure and mild ischemic hepatitis. #Hepatosteatosis #Questionable GI Bleed #Acute systolic CHF - EF less than 25%, s/p ICD #CAD #CVA #COPD Plan: -Continue supportive/critical care -Imaging findings noted for worsening ascites, normal CBD, hepatomegaly -Hb stable, doubt active GI bleed at this time. -Recommend Dx/Tx paracentesis when stable. Recommend Standard work-up. Serum/ ascites TP important to r/o cardiac causes. -Bili elevation noted. Continue to follow. Likely from the hepatic insult form hypotension and RHF, it should plateau and decrease in the next few days as the AST/ALT is improving. -Continue PPI -No endoscopic procedures planned at this time. <Robin Mcknight - Last Filed: 03/20/18 19:54> Objective - Vital Signs/Intake and Output Vital Signs (last 24 hours): Temp Pulse Resp BP Pulse Ox 99.0 F 127 H 118 H 112/71 100 03/20/18 16:00 03/20/18 18:00 03/20/18 18:00 03/20/18 18:00 03/20/18 18:00 Intake and Output: 03/20/18 03/21/18 18:59 06:59 Intake Total 1957 Output Total 3000 Balance -1043 - Medications Medications: Current Medications Acetaminophen (Tylenol 325mg Tab) 650 mg PO Q4 PRN PRN Reason: Pain, Mild (1-3) Albuterol/Ipratropium (Duoneb 3 Mg/0.5 Mg (3 Ml) Ud) 3 ml INH RQ6 EUGENIO Last Admin: 03/20/18 19:00 Dose: 3 ml Bisacodyl (Dulcolax) 10 mg AK DAILY PRN PRN Reason: No bowel movement x3days Furosemide (Lasix) 40 mg IV DAILY PRN PRN Reason: Shortness of Breath Milrinone Lactate/Dextrose (Primacor 20mg/100ml D5w) 100 mls @ 10.614 mls/hr IV .Q9H26M EUGENIO; 0.375 MCG/KG/MIN PRN Reason: Protocol Last Admin: 03/20/18 14:57 Dose: 0.375 mcg/kg/min, 10.614 mls/hr Norepinephrine Bitartrate 8 mg (/ Dextrose) 258 mls @ 4.83 mls/hr IV .Q24H ONE ; 2.5 MCG/MIN PRN Reason: Protocol Stop: 03/21/18 01:21 Last Admin: 03/20/18 10:59 Dose: 17.5 mcg/min, 33.86 mls/hr Magnesium Hydroxide (Milk Of Magnesia) 30 ml PO HS PRN PRN Reason: No bowel movement x2 days Midazolam HCl (Versed Inj) 2 mg IV Q6H PRN PRN Reason: Agitation Last Admin: 03/20/18 03:14 Dose: 2 mg Gzpvj-3-Emyv Ethyl Esters (Lovaza) 1 gm PO Q12 EUGENIO Last Admin: 03/20/18 08:35 Dose: 1 gm Oxymetazoline HCl (Nasal Decongestant 15 Ml) 1 spr NS Q12 PRN PRN Reason: Nasal congestion Last Admin: 03/16/18 16:47 Dose: 1 spr Pantoprazole Sodium (Protonix Inj) 40 mg IVP Q12 EUGENIO Last Admin: 03/20/18 08:36 Dose: 40 mg Tamsulosin HCl (Flomax) 0.4 mg PO QPM [facility] Last Admin: 03/16/18 19:50 Dose: Not Given - Labs Labs: 03/20/18 05:00 03/20/18 05:00 PT 22.1 Seconds (9.8-13.1) H 03/20/18 05:00 INR 2.0 03/20/18 05:00 APTT 35.4 Seconds (25.6-37.1) 03/20/18 05:00 Assessment and Plan (1) Bleeding Status: Acute - Assessment and Plan (Free Text) Assessment: Patient examined and discussed with GI fellow. Agree with plan.
[2018-03-20 09:18] LABS: VENOUS BLOOD GAS BASE EXCESS 9.9 mmol/L (0.0-2.0); VENOUS BLOOD GAS PCO2 53 mmHg (40-60); VENOUS BLOOD GAS PO2 53 mm/Hg (30-55); VENOUS BLOOD PH 7.44 (7.32-7.43)
[2018-03-20] MEDS ORDERED: Potassium Phosphate 30 MMOLE in Sodium Chloride 0.9% 250 ML IV ONE (11:05)
[2018-03-20] MEDS ORDERED: Phytonadione 10 mg/ml Inj (Adult) IVPB ONE (11:10)
[2018-03-20] MEDS: Potassium Chloride 20 mEq 100 ML IVPB SCH ×3 (11:19→14:25)
--- NOTE | 2018-03-20 11:33 | RAD ---
Date of service: 03/20/2018 HISTORY: ETT repositioned COMPARISON: Portable chest 03/20/2018. FINDINGS: Endotracheal tube is unchanged in position, terminating in the plane the trachea just above the clavicles. On discussion of the patient with ICU Nurse Ross, patient has now been extubated after radiograph being performed. Advancement an additional 4-5 cm is advised follow-up by confirmation radiograph. Right central venous line and pacemaker/AICD stable in position with nasogastric tube again identified at the left upper quadrant abdomen. LUNGS: CHF pattern not significantly changed in the interval. Right basilar airspace disease versus artifact is identified at the inferior right lung zone with opacity appearing diminished at the lateral left basilar retrocardiac left basilar opacity is unchanged. No definite right pleural effusion. Limited left pleural effusion difficult to exclude. No pneumothorax bilaterally. PLEURA: As above. CARDIOVASCULAR: Pulmonary vascular congestion pattern appears further diminished. Cardiac silhouette appears stable. OSSEOUS STRUCTURES: No significant abnormalities. VISUALIZED UPPER ABDOMEN: Normal. OTHER FINDINGS: None. IMPRESSION: Endotracheal tube is not significantly changed in position at this time however the patient apparently has been extubated after performing the radiograph. Remaining tubes and catheters are not appear significantly changed in position. Further improvement in pulmonary vascular congestion. Increased opacity at the mid to inferior right lung zone may reflect artifact or interval airspace disease. Residual left retrocardiac airspace disease noted. Trace left pleural effusion questioned. Findings discussed with ICU Nurse Ross with written down and read verification 03/20/2018 11:19 a.m..
[2018-03-20 11:57] LABS: ABG ALLEN TEST YES; ARTERIAL BLOOD GAS HCO3 31.6 mmol/L (21-28); ARTERIAL BLOOD GAS HEMOGLOBIN 11.1 g/dL (11.7-17.4); ARTERIAL BLOOD GAS O2 CAPACITY 15.3 mL/dL (16-24); ARTERIAL BLOOD GAS O2 CONTENT 15.2 ML/dL (15-23); ARTERIAL BLOOD GAS O2 SAT 99.5 % (95-98); ARTERIAL BLOOD GAS PCO2 50 mm/Hg (35-45); ARTERIAL BLOOD GAS PH 7.44 (7.35-7.45); ARTERIAL BLOOD GAS PO2 119 mm/Hg (80-100); ARTERIAL BLOOD GAS TCO2 35.5 mmol/L (22-28)
[2018-03-20] MEDS ORDERED: Chlorhexidine Gluconate 1 APPL/PKT TP ONE (13:59)
--- NOTE | 2018-03-20 14:01 | CP.CCUPN ---
<Sultan Essence - Last Filed: 03/20/18 17:18> CCU Subjective - Physician Review Subjective (Free Text): 03/20/18 14:01 Patient seen and examined at bedside this morning. Pt was hypotensive last night and currently on levophed with current MAP >65. This morning, CXR shows ET tube to be high and ET tube was repositioned, and showed to be still high. However, patient was saturating well. Pt was given spontaneous breathing trial and tolerated about 45 minutes. Decision was made to extubate the patient, after extubation, ABG looked fair with some C02 retention, however pt was getting tachypneic. Pt's was contacted regarding re-intubation and agreed to be re-intubated. Pt was re-intubated. CCU Objective - Vital Signs / Intake & Output Vital Signs (Last 4 hours): Vital Signs Temp Pulse Resp BP Pulse Ox 03/20/18 13:00 122 H 35 H 92/52 L 99 03/20/18 12:00 97.8 F 121 H 21 97/54 L 99 03/20/18 11:00 118 H 42 H 77/49 L 99 Intake and Output (Last 8hrs): Intake & Output 03/19/18 03/20/18 03/20/18 22:59 06:59 14:59 Intake Total 6833 113 7659 Output Total 2700 2300 1200 Balance -1681 -1692 32 Weight 94.347 kg Intake: IV 20 308 1032 Intake, Piggyback 250 Oral 0 Tube Feeding 70 100 Blood Product 579 Free Water Flush 100 300 100 Output: Urine 2700 2300 1200 Urethral (Chen) 2700 2300 1200 Other: # Bowel Movements 0 - Physical Exam Head: Positive for: Atraumatic, Other (Jaundiced) Pupils: Positive for: PERRL Extroacular Muscles: Positive for: EOMI Conjunctiva: Positive for: Normal Mouth: Positive for: Other (Intubated) Respiratory/Chest: Negative for: Respiratory Distress, Accessory Muscle Use, Wheezes, Rales, Rhonchi Cardiovascular: Positive for: Regular Rate and Rhythm, Normal S1, S2 Abdomen: Positive for: Normal Bowel Sounds. Negative for: Tenderness, Distention, Peritoneal Signs Upper Extremity: Positive for: Edema (Mild edema of B/L forearms and hands. No signs of infection) Lower Extremity: Positive for: Edema (1+ (significant improvement from yesterday )) Skin: Positive for: Other Psychiatric: Positive for: Alert - Medications Active Medications: Active Medications Generic Name Dose Route Start Last Admin Trade Name Freq PRN Reason Stop Dose Admin Acetaminophen 650 mg 03/13/18 01:35 Tylenol 325mg Tab PO Q4 PRN Pain, Mild (1-3) Albuterol/Ipratropium 3 ml 03/13/18 02:00 03/20/18 13:17 Duoneb 3 Mg/0.5 Mg (3 Ml) Ud INH 3 ml RQ6 EUGENIO Administration Bisacodyl 10 mg 03/13/18 01:[address] DAILY PRN No bowel movement x3days Furosemide 40 mg 03/20/18 10:32 Lasix IV DAILY PRN Shortness of Breath Milrinone Lactate/Dextrose 100 mls @ 10.614 mls/hr 03/19/18 16:30 03/20/18 09 :19 Primacor 20mg/100ml D5w IV 0.375 mcg/kg/min .Q9H26M EUGENIO 10.614 mls/hr Protocol Administration 0.375 MCG/KG/MIN Norepinephrine Bitartrate 8 mg 258 mls @ 4.83 mls/hr 03/20/18 01:22 03/20/18 10:59 / Dextrose IV 03/21/18 01:21 17.5 mcg/min .Q24H ONE 33.86 mls/hr Protocol Administration 2.5 MCG/MIN Potassium Chloride 100 mls @ 50 mls/hr 03/20/18 12:00 03/20/18 12:21 Potassium Chloride 20 Meq/100 Ml IVPB 03/20/18 17:59 50 mls/hr Q2 EUGENIO Administration Potassium Phosphate 30 mmole/ 260 mls @ 65 mls/hr 03/20/18 11:05 03/20/18 11: 57 Sodium Chloride IV 03/20/18 15:04 65 mls/hr ONCE ONE Administration Magnesium Hydroxide 30 ml 03/13/18 01:35 Milk Of Magnesia PO HS PRN No bowel movement x2 days Midazolam HCl 2 mg 03/17/18 10:45 03/20/18 03:14 Versed Inj IV 2 mg Q6H PRN Administration Agitation Kunqy-1-Eeek Ethyl Esters 1 gm 03/13/18 09:00 03/20/18 08:35 Lovaza PO 1 gm Q12 EUGENIO Administration Oxymetazoline HCl 1 spr 03/16/18 16:36 03/16/18 16:47 Nasal Decongestant 15 Ml NS 1 spr Q12 PRN Administration Nasal congestion Pantoprazole Sodium 40 mg 03/18/18 21:00 03/20/18 08:36 Protonix Inj IVP 40 mg Q12 EUGENIO Administration Tamsulosin HCl 0.4 mg 03/13/18 18:00 03/16/18 19:50 Flomax PO Not Given QPM EUGENIO - Patient Studies Lab Studies: Microbiology Studies 03/19/18 11:10 Gram Stain - Final Trachasp Sputum Culture - Preliminary No growth. Lab Studies 03/20/18 03/20/18 03/20/18 Range/Units 11:48 09:13 05:21 WBC (4.8-10.8) K/uL RBC (4.40-5.90) Mil/uL Hgb (12.0-18.0) g/dL Hct (35.0-51.0) % MCV (80.0-94.0) fl MCH (27.0-31.0) pg MCHC (33.0-37.0) g/dL RDW (11.5-14.5) % Plt Count (130-400) K/uL MPV (7.2-11.7) fl Neut % (Auto) (50.0-75.0) % Lymph % (Auto) (20.0-40.0) % [place] % (Auto) (0.0-10.0) % Eos % (Auto) (0.0-4.0) % Baso % (Auto) (0.0-2.0) % Neut # (Auto) (1.8-7.0) K/uL Lymph # (Auto) (1.0-4.3) K/uL [place] # (Auto) (0.0-0.8) K/uL Eos # (Auto) (0.0-0.7) K/uL Baso # (Auto) (0.0-0.2) K/uL PT (9.8-13.1) Seconds INR APTT (25.6-37.1) Seconds pCO2 50 H 42 (35-45) mm/Hg pO2 119 H 53 117 H (80-100) mm/Hg HCO3 31.6 H 31.1 H (21-28) mmol/L ABG pH 7.44 7.49 H (7.35-7.45) ABG Total CO2 35.5 H 33.3 H (22-28) mmol/L ABG O2 Saturation 99.5 H 99.8 H (95-98) % ABG O2 Content 15.2 15.1 (15-23) ML/dL ABG Base Excess 8.6 H 7.9 H (-2.0-3.0) mmol/L ABG Hemoglobin 11.1 L 11.0 L (11.7-17.4) g/dL ABG Carboxyhemoglobin 2.1 H 2.1 H (0.5-1.5) % POC ABG HHb (Measured) 0.5 0.2 (0.0-5.0) % ABG Methemoglobin 1.3 1.2 (0.0-3.0) % ABG O2 Capacity 15.3 L 15.1 L (16-24) mL/dL Chris Test Yes Yes VBG pH 7.44 H (7.32-7.43) VBG pCO2 53 (40-60) mmHg VBG HCO3 32.4 mmol/L VBG Total CO2 37.6 H (22-28) mmol/L VBG O2 Sat (Calc) 79.5 H (40-65) % VBG Base Excess 9.9 H (0.0-2.0) mmol/L VBG Potassium 2.9 L (3.6-5.2) mmol/L A-a O2 Difference 104.0 44.0 mm/Hg Hgb O2 Saturation 96.1 96.5 (95.0-98.0) % Glucose 199 H (75-110) mg/dL Lactate 2.1 (0.7-2.1) mmol/L Vent Mode A/c Mechanical Rate 12 FiO2 40.0 30.0 30.0 % Tidal Volume 500 PEEP 5 5 Sodium 141.0 (132-148) mmol/l Potassium (3.6-5.0) MMOL/L Chloride 103.0 (98-107) mmol/L Carbon Dioxide (22-30) mmol/L Anion Gap (10-20) BUN (9-20) mg/dl Creatinine (0.8-1.5) mg/dl Est GFR ( Amer) Est GFR (Non-Af Amer) POC Glucose (mg/dL) (65-110) mg/dL Random Glucose (75-110) mg/dL Lactic Acid (0.7-2.1) MMOL/L Calcium (8.4-10.2) mg/dL Phosphorus (2.5-4.5) mg/dl Magnesium (1.6-2.3) MG/DL Total Bilirubin (0.2-1.3) mg/dl AST (17-59) U/L ALT (21-72) U/L Alkaline Phosphatase (38-126) U/L Total Protein (6.3-8.2) G/DL Albumin (3.5-5.0) g/dL Globulin (2.2-3.9) gm/dL Albumin/Globulin Ratio (1.0-2.1) Procalcitonin (0.19-0.49) NG/ML Venous Blood Potassium 2.9 L (3.6-5.2) mmol/L Crossmatch 03/20/18 03/20/18 03/20/18 Range/Units 05:00 05:00 05:00 WBC (4.8-10.8) K/uL RBC (4.40-5.90) Mil/uL Hgb (12.0-18.0) g/dL Hct (35.0-51.0) % MCV (80.0-94.0) fl MCH (27.0-31.0) pg MCHC (33.0-37.0) g/dL RDW (11.5-14.5) % Plt Count (130-400) K/uL MPV (7.2-11.7) fl Neut % (Auto) (50.0-75.0) % Lymph % (Auto) (20.0-40.0) % [place] % (Auto) (0.0-10.0) % Eos % (Auto) (0.0-4.0) % Baso % (Auto) (0.0-2.0) % Neut # (Auto) (1.8-7.0) K/uL Lymph # (Auto) (1.0-4.3) K/uL [place] # (Auto) (0.0-0.8) K/uL Eos # (Auto) (0.0-0.7) K/uL Baso # (Auto) (0.0-0.2) K/uL PT 22.1 H (9.8-13.1) Seconds INR 2.0 APTT 35.4 (25.6-37.1) Seconds pCO2 (35-45) mm/Hg pO2 (80-100) mm/Hg HCO3 (21-28) mmol/L ABG pH (7.35-7.45) ABG Total CO2 (22-28) mmol/L ABG O2 Saturation (95-98) % ABG O2 Content (15-23) ML/dL ABG Base Excess (-2.0-3.0) mmol/L ABG Hemoglobin (11.7-17.4) g/dL ABG Carboxyhemoglobin (0.5-1.5) % POC ABG HHb (Measured) (0.0-5.0) % ABG Methemoglobin (0.0-3.0) % ABG O2 Capacity (16-24) mL/dL Chris Test VBG pH (7.32-7.43) VBG pCO2 (40-60) mmHg VBG HCO3 mmol/L VBG Total CO2 (22-28) mmol/L VBG O2 Sat (Calc) (40-65) % VBG Base Excess (0.0-2.0) mmol/L VBG Potassium (3.6-5.2) mmol/L A-a O2 Difference mm/Hg Hgb O2 Saturation (95.0-98.0) % Glucose (75-110) mg/dL Lactate (0.7-2.1) mmol/L Vent Mode Mechanical Rate FiO2 % Tidal Volume PEEP Sodium 144 (132-148) mmol/l Potassium 3.2 L (3.6-5.0) MMOL/L Chloride 103 (98-107) mmol/L Carbon Dioxide 33 H (22-30) mmol/L Anion Gap 11 (10-20) BUN 11 (9-20) mg/dl Creatinine 0.9 (0.8-1.5) mg/dl Est GFR ( Amer) > 60 Est GFR (Non-Af Amer) > 60 POC Glucose (mg/dL) (65-110) mg/dL Random Glucose 150 H (75-110) mg/dL Lactic Acid 1.8 (0.7-2.1) MMOL/L Calcium 8.2 L (8.4-10.2) mg/dL Phosphorus 0.9 L* (2.5-4.5) mg/dl Magnesium 1.9 (1.6-2.3) MG/DL Total Bilirubin 3.7 H (0.2-1.3) mg/dl AST 106 H D (17-59) U/L ALT 93 H D (21-72) U/L Alkaline Phosphatase 107 (38-126) U/L Total Protein 5.8 L (6.3-8.2) G/DL Albumin 3.1 L (3.5-5.0) g/dL Globulin 2.8 (2.2-3.9) gm/dL Albumin/Globulin Ratio 1.1 (1.0-2.1) Procalcitonin (0.19-0.49) NG/ML Venous Blood Potassium (3.6-5.2) mmol/L Crossmatch 03/20/18 03/19/18 03/19/18 Range/Units 05:00 21:03 19:20 WBC 4.5 L (4.8-10.8) K/uL RBC 3.55 L (4.40-5.90) Mil/uL Hgb 10.9 L (12.0-18.0) g/dL Hct 33.4 L (35.0-51.0) % MCV 94.2 H (80.0-94.0) fl MCH 30.6 (27.0-31.0) pg MCHC 32.5 L (33.0-37.0) g/dL RDW 22.2 H (11.5-14.5) % Plt Count 90 L (130-400) K/uL MPV 8.2 (7.2-11.7) fl Neut % (Auto) 67.7 (50.0-75.0) % Lymph % (Auto) 19.6 L (20.0-40.0) % [place] % (Auto) 10.8 H (0.0-10.0) % Eos % (Auto) 1.1 (0.0-4.0) % Baso % (Auto) 0.8 (0.0-2.0) % Neut # (Auto) 3.1 (1.8-7.0) K/uL Lymph # (Auto) 0.9 L (1.0-4.3) K/uL [place] # (Auto) 0.5 (0.0-0.8) K/uL Eos # (Auto) 0.0 (0.0-0.7) K/uL Baso # (Auto) 0.0 (0.0-0.2) K/uL PT (9.8-13.1) Seconds INR APTT (25.6-37.1) Seconds pCO2 (35-45) mm/Hg pO2 (80-100) mm/Hg HCO3 (21-28) mmol/L ABG pH (7.35-7.45) ABG Total CO2 (22-28) mmol/L ABG O2 Saturation (95-98) % ABG O2 Content (15-23) ML/dL ABG Base Excess (-2.0-3.0) mmol/L ABG Hemoglobin (11.7-17.4) g/dL ABG Carboxyhemoglobin (0.5-1.5) % POC ABG HHb (Measured) (0.0-5.0) % ABG Methemoglobin (0.0-3.0) % ABG O2 Capacity (16-24) mL/dL Chris Test VBG pH (7.32-7.43) VBG pCO2 (40-60) mmHg VBG HCO3 mmol/L VBG Total CO2 (22-28) mmol/L VBG O2 Sat (Calc) (40-65) % VBG Base Excess (0.0-2.0) mmol/L VBG Potassium (3.6-5.2) mmol/L A-a O2 Difference mm/Hg Hgb O2 Saturation (95.0-98.0) % Glucose (75-110) mg/dL Lactate (0.7-2.1) mmol/L Vent Mode Mechanical Rate FiO2 % Tidal Volume PEEP Sodium (132-148) mmol/l Potassium (3.6-5.0) MMOL/L Chloride (98-107) mmol/L Carbon Dioxide (22-30) mmol/L Anion Gap (10-20) BUN (9-20) mg/dl Creatinine (0.8-1.5) mg/dl Est GFR ( Amer) Est GFR (Non-Af Amer) POC Glucose (mg/dL) 115 H 69 (65-110) mg/dL Random Glucose (75-110) mg/dL Lactic Acid (0.7-2.1) MMOL/L Calcium (8.4-10.2) mg/dL Phosphorus (2.5-4.5) mg/dl Magnesium (1.6-2.3) MG/DL Total Bilirubin (0.2-1.3) mg/dl AST (17-59) U/L ALT (21-72) U/L Alkaline Phosphatase (38-126) U/L Total Protein (6.3-8.2) G/DL Albumin (3.5-5.0) g/dL Globulin (2.2-3.9) gm/dL Albumin/Globulin Ratio (1.0-2.1) Procalcitonin (0.19-0.49) NG/ML Venous Blood Potassium (3.6-5.2) mmol/L Crossmatch 03/19/18 03/19/18 03/16/18 Range/Units 15:55 11:28 16:01 WBC (4.8-10.8) K/uL RBC (4.40-5.90) Mil/uL Hgb (12.0-18.0) g/dL Hct (35.0-51.0) % MCV (80.0-94.0) fl MCH (27.0-31.0) pg MCHC (33.0-37.0) g/dL RDW (11.5-14.5) % Plt Count (130-400) K/uL MPV (7.2-11.7) fl Neut % (Auto) (50.0-75.0) % Lymph % (Auto) (20.0-40.0) % [place] % (Auto) (0.0-10.0) % Eos % (Auto) (0.0-4.0) % Baso % (Auto) (0.0-2.0) % Neut # (Auto) (1.8-7.0) K/uL Lymph # (Auto) (1.0-4.3) K/uL [place] # (Auto) (0.0-0.8) K/uL Eos # (Auto) (0.0-0.7) K/uL Baso # (Auto) (0.0-0.2) K/uL PT (9.8-13.1) Seconds INR APTT (25.6-37.1) Seconds pCO2 (35-45) mm/Hg pO2 (80-100) mm/Hg HCO3 (21-28) mmol/L ABG pH (7.35-7.45) ABG Total CO2 (22-28) mmol/L ABG O2 Saturation (95-98) % ABG O2 Content (15-23) ML/dL ABG Base Excess (-2.0-3.0) mmol/L ABG Hemoglobin (11.7-17.4) g/dL ABG Carboxyhemoglobin (0.5-1.5) % POC ABG HHb (Measured) (0.0-5.0) % ABG Methemoglobin (0.0-3.0) % ABG O2 Capacity (16-24) mL/dL Chris Test VBG pH (7.32-7.43) VBG pCO2 (40-60) mmHg VBG HCO3 mmol/L VBG Total CO2 (22-28) mmol/L VBG O2 Sat (Calc) (40-65) % VBG Base Excess (0.0-2.0) mmol/L VBG Potassium (3.6-5.2) mmol/L A-a O2 Difference mm/Hg Hgb O2 Saturation (95.0-98.0) % Glucose (75-110) mg/dL Lactate (0.7-2.1) mmol/L Vent Mode Mechanical Rate FiO2 % Tidal Volume PEEP Sodium 142 (132-148) mmol/l Potassium 2.9 L (3.6-5.0) MMOL/L Chloride 104 (98-107) mmol/L Carbon Dioxide 27 (22-30) mmol/L Anion Gap 14 (10-20) BUN 11 (9-20) mg/dl Creatinine 0.9 (0.8-1.5) mg/dl Est GFR ( Amer) > 60 Est GFR (Non-Af Amer) > 60 POC Glucose (mg/dL) (65-110) mg/dL Random Glucose 49 L (75-110) mg/dL Lactic Acid (0.7-2.1) MMOL/L Calcium 8.0 L (8.4-10.2) mg/dL Phosphorus (2.5-4.5) mg/dl Magnesium (1.6-2.3) MG/DL Total Bilirubin (0.2-1.3) mg/dl AST (17-59) U/L ALT (21-72) U/L Alkaline Phosphatase (38-126) U/L Total Protein (6.3-8.2) G/DL Albumin (3.5-5.0) g/dL Globulin (2.2-3.9) gm/dL Albumin/Globulin Ratio (1.0-2.1) Procalcitonin 0.73 H (0.19-0.49) NG/ML Venous Blood Potassium (3.6-5.2) mmol/L Crossmatch See Detail Laboratory Results - last 24 hr 03/16/18 03/19/18 03/19/18 16:01 11:28 15:55 WBC RBC Hgb Hct MCV MCH MCHC RDW Plt Count MPV Neut % (Auto) Lymph % (Auto) [place] % (Auto) Eos % (Auto) Baso % (Auto) Neut # (Auto) Lymph # (Auto) [place] # (Auto) Eos # (Auto) Baso # (Auto) PT INR APTT pCO2 pO2 HCO3 ABG pH ABG Total CO2 ABG O2 Saturation ABG O2 Content ABG Base Excess ABG Hemoglobin ABG Carboxyhemoglobin POC ABG HHb (Measured) ABG Methemoglobin ABG O2 Capacity Chris Test VBG pH VBG pCO2 VBG HCO3 VBG Total CO2 VBG O2 Sat (Calc) VBG Base Excess VBG Potassium A-a O2 Difference Hgb O2 Saturation Glucose Lactate Vent Mode Mechanical Rate FiO2 Tidal Volume PEEP Sodium 142 Potassium 2.9 L Chloride 104 Carbon Dioxide 27 Anion Gap 14 BUN 11 Creatinine 0.9 Est GFR ( Amer) > 60 Est GFR (Non-Af Amer) > 60 POC Glucose (mg/dL) Random Glucose 49 L Lactic Acid Calcium 8.0 L Phosphorus Magnesium Total Bilirubin AST ALT Alkaline Phosphatase Total Protein Albumin Globulin Albumin/Globulin Ratio Procalcitonin 0.73 H Venous Blood Potassium Crossmatch See Detail 08/09/0503/19/18 03/20/18 19:20 21:03 05:00 WBC 4.5 L RBC 3.55 L Hgb 10.9 L Hct 33.4 L MCV 94.2 H MCH 30.6 MCHC 32.5 L RDW 22.2 H Plt Count 90 L MPV 8.2 Neut % (Auto) 67.7 Lymph % (Auto) 19.6 L [place] % (Auto) 10.8 H Eos % (Auto) 1.1 Baso % (Auto) 0.8 Neut # (Auto) 3.1 Lymph # (Auto) 0.9 L [place] # (Auto) 0.5 Eos # (Auto) 0.0 Baso # (Auto) 0.0 PT INR APTT pCO2 pO2 HCO3 ABG pH ABG Total CO2 ABG O2 Saturation ABG O2 Content ABG Base Excess ABG Hemoglobin ABG Carboxyhemoglobin POC ABG HHb (Measured) ABG Methemoglobin ABG O2 Capacity Chris Test VBG pH VBG pCO2 VBG HCO3 VBG Total CO2 VBG O2 Sat (Calc) VBG Base Excess VBG Potassium A-a O2 Difference Hgb O2 Saturation Glucose Lactate Vent Mode Mechanical Rate FiO2 Tidal Volume PEEP Sodium Potassium Chloride Carbon Dioxide Anion Gap BUN Creatinine Est GFR ( Amer) Est GFR (Non-Af Amer) POC Glucose (mg/dL) 69 115 H Random Glucose Lactic Acid Calcium Phosphorus Magnesium Total Bilirubin AST ALT Alkaline Phosphatase Total Protein Albumin Globulin Albumin/Globulin Ratio Procalcitonin Venous Blood Potassium Crossmatch 03/20/18 03/20/18 03/20/18 05:00 05:00 05:00 WBC RBC Hgb Hct MCV MCH MCHC RDW Plt Count MPV Neut % (Auto) Lymph % (Auto) [place] % (Auto) Eos % (Auto) Baso % (Auto) Neut # (Auto) Lymph # (Auto) [place] # (Auto) Eos # (Auto) Baso # (Auto) PT 22.1 H INR 2.0 APTT 35.4 pCO2 pO2 HCO3 ABG pH ABG Total CO2 ABG O2 Saturation ABG O2 Content ABG Base Excess ABG Hemoglobin ABG Carboxyhemoglobin POC ABG HHb (Measured) ABG Methemoglobin ABG O2 Capacity Chris Test VBG pH VBG pCO2 VBG HCO3 VBG Total CO2 VBG O2 Sat (Calc) VBG Base Excess VBG Potassium A-a O2 Difference Hgb O2 Saturation Glucose Lactate Vent Mode Mechanical Rate FiO2 Tidal Volume PEEP Sodium 144 Potassium 3.2 L Chloride 103 Carbon Dioxide 33 H Anion Gap 11 BUN 11 Creatinine 0.9 Est GFR ( Amer) > 60 Est GFR (Non-Af Amer) > 60 POC Glucose (mg/dL) Random Glucose 150 H Lactic Acid 1.8 Calcium 8.2 L Phosphorus 0.9 L* Magnesium 1.9 Total Bilirubin 3.7 H AST 106 H D ALT 93 H D Alkaline Phosphatase 107 Total Protein 5.8 L Albumin 3.1 L Globulin 2.8 Albumin/Globulin Ratio 1.1 Procalcitonin Venous Blood Potassium Crossmatch 03/20/18 03/20/18 03/20/18 05:21 09:13 11:48 WBC RBC Hgb Hct MCV MCH MCHC RDW Plt Count MPV Neut % (Auto) Lymph % (Auto) [place] % (Auto) Eos % (Auto) Baso % (Auto) Neut # (Auto) Lymph # (Auto) [place] # (Auto) Eos # (Auto) Baso # (Auto) PT INR APTT pCO2 42 50 H pO2 117 H 53 119 H HCO3 31.1 H 31.6 H ABG pH 7.49 H 7.44 ABG Total CO2 33.3 H 35.5 H ABG O2 Saturation 99.8 H 99.5 H ABG O2 Content 15.1 15.2 ABG Base Excess 7.9 H 8.6 H ABG Hemoglobin 11.0 L 11.1 L ABG Carboxyhemoglobin 2.1 H 2.1 H POC ABG HHb (Measured) 0.2 0.5 ABG Methemoglobin 1.2 1.3 ABG O2 Capacity 15.1 L 15.3 L Chris Test Yes Yes VBG pH 7.44 H VBG pCO2 53 VBG HCO3 32.4 VBG Total CO2 37.6 H VBG O2 Sat (Calc) 79.5 H VBG Base Excess 9.9 H VBG Potassium 2.9 L A-a O2 Difference 44.0 104.0 Hgb O2 Saturation 96.5 96.1 Glucose 199 H Lactate 2.1 Vent Mode A/c Mechanical Rate 12 FiO2 30.0 30.0 40.0 Tidal Volume 500 PEEP 5 5 Sodium 141.0 Potassium Chloride 103.0 Carbon Dioxide Anion Gap BUN Creatinine Est GFR ( Amer) Est GFR (Non-Af Amer) POC Glucose (mg/dL) Random Glucose Lactic Acid Calcium Phosphorus Magnesium Total Bilirubin AST ALT Alkaline Phosphatase Total Protein Albumin Globulin Albumin/Globulin Ratio Procalcitonin Venous Blood Potassium 2.9 L Crossmatch Fingerstick Blood Sugar Results: 88 Review of Systems - Review of Systems All systems: reviewed and no additional remarkable complaints except Critical Care Progress Note - Nutrition Nutrition: Nutrition Category Date Time Status NPO Diet [DIET] Diets 03/17/18 Lunch Active Assessment/Plan - Assessment and Plan (Free Text) Assessment: 77 yo male with PMHx CVA, hepatitis A & B, CHF, AICD, COPD, care home resident, mild to moderate dementia. Pt was admitted to telemetry on 03/12 for AMS, weakness, jaundice, transaminitis. [employer] was called on 03/16/18 for worsening dyspnea. Pt was subsequently intubated and admitted to ICU on 03/16 for acute respiratory failure. Pt was extubated this morning and re-intubated due to respiratory distress. Pulmonary: -Shoe Packer Dr. Mueller on board -Acute respiratory failure s/p intubation on 03/16/18 to 03/20/18, extubated this morning and re-intubated -CXR shows improved venous congestion and pleura effusion -Pt had urine output of >9L over last 48 hours. Will stop lasix scheduled dose and start lasix 40 mg ivp prn daily. -Procalcitonin 0.73 -Sputum c&s: prelim no growth Cardiovascular: -Bookstore Manager Dr. Peralta on board -CHF: proBNP [id number]. -Hypotension: Pt started on levophed last night after having MAP of 54. -Increase milrinone to 0.75 mcg/kg/min IV GI: -GI on board -Stable H&H -Continue protonix IV q12h for possible bleeding ulcer. -Transaminitis trending down but total bilirubin is trending up 3.75 mg -CT of abdomen and pelvis on 03/12/18 shows moderate abdomen and pelvis ascites. Renal: -Strict monitor of Intake and output -Pt had urine output of >9L over last 48 hours. Will stop lasix scheduled dose and start lasix 40 mg ivp prn daily. -Hypokalemia:Potassium 3.2, slight improvement from yesterday.Started 60 meq kcal. f/u CMP -Hypophosphatemia: 0.9; start potassium phosphate 30 mmol IVP. f/u phosphate Hematology: -INR 2.0 today s/p 11 units FFP in total with Vitamin K. -Will transfuse 6 units of FFP ( 2 units of FFP every 6 hrs) -Thrombocytopenia: platelet 90 this morning.Continue to monitor ID: -Stopped all abx, no source of sepsis. Procalcitonin 0.7. DVT prophylaxis - SCD's GI prophylaxis - protonix IV q12h Code status - full code <Miquel Barnard - Last Filed: 03/20/18 17:42> CCU Subjective - Physician Review Subjective (Free Text): Attestation: Patient seen and examined at the bedside with Resident Dr. Darell Lowry; and I agree with his outline of plans and management documented below as discussed on AM rounds reflecting my review of all applicable clinical data, and participation in the care of the patient throughout the day in ICU; today, March 20, 2018. Time spent with this patient did not overlap with any other provider's medical or critical care time. Additionally the code selected for the services rendered in this note includes the time spent: talking to the patients family, associated physicians and reviewing hospital data/results not listed here which extended to a total of 40 minutes.
--- NOTE | 2018-03-20 16:21 | CP.PCM.PN ---
Subjective - Date & Time of Evaluation Date of Evaluation: 03/20/18 Time of Evaluation: 10:40 - Subjective Subjective: F/U Acute Respiratory Failure Extubated, lethargic, follows simple commands like squeeze the hand Objective - Vital Signs/Intake and Output Vital Signs (last 24 hours): Temp Pulse Resp BP Pulse Ox 97.8 F 128 H 44 H 87/62 L 98 03/20/18 12:00 03/20/18 15:00 03/20/18 15:00 03/20/18 15:00 03/20/18 15:00 Intake and Output: 03/20/18 03/20/18 06:59 18:59 Intake Total 1018 1709 Output Total 2300 1200 Balance -1282 509 - Medications Medications: Current Medications Acetaminophen (Tylenol 325mg Tab) 650 mg PO Q4 PRN PRN Reason: Pain, Mild (1-3) Albuterol/Ipratropium (Duoneb 3 Mg/0.5 Mg (3 Ml) Ud) 3 ml INH RQ6 EUGENIO Last Admin: 03/20/18 13:17 Dose: 3 ml Bisacodyl (Dulcolax) 10 mg IN DAILY PRN PRN Reason: No bowel movement x3days Furosemide (Lasix) 40 mg IV DAILY PRN PRN Reason: Shortness of Breath Milrinone Lactate/Dextrose (Primacor 20mg/100ml D5w) 100 mls @ 10.614 mls/hr IV .Q9H26M EUGENIO; 0.375 MCG/KG/MIN PRN Reason: Protocol Last Admin: 03/20/18 14:57 Dose: 0.375 mcg/kg/min, 10.614 mls/hr Norepinephrine Bitartrate 8 mg (/ Dextrose) 258 mls @ 4.83 mls/hr IV .Q24H ONE ; 2.5 MCG/MIN PRN Reason: Protocol Stop: 03/21/18 01:21 Last Admin: 03/20/18 10:59 Dose: 17.5 mcg/min, 33.86 mls/hr Potassium Chloride (Potassium Chloride 20 Meq/100 Ml) 100 mls @ 50 mls/hr IVPB Q2 EUGENIO Stop: 03/20/18 17:59 Last Admin: 03/20/18 14:25 Dose: 50 mls/hr Magnesium Hydroxide (Milk Of Magnesia) 30 ml PO HS PRN PRN Reason: No bowel movement x2 days Midazolam HCl (Versed Inj) 2 mg IV Q6H PRN PRN Reason: Agitation Last Admin: 03/20/18 03:14 Dose: 2 mg [id number] Ethyl Esters (Lovaza) 1 gm PO Q12 EUGENIO Last Admin: 03/20/18 08:35 Dose: 1 gm Oxymetazoline HCl (Nasal Decongestant 15 Ml) 1 spr NS Q12 PRN PRN Reason: Nasal congestion Last Admin: 03/16/18 16:47 Dose: 1 spr Pantoprazole Sodium (Protonix Inj) 40 mg IVP Q12 [facility] Last Admin: 03/20/18 08:36 Dose: 40 mg Tamsulosin HCl (Flomax) 0.4 mg PO QPM [facility] Last Admin: 03/16/18 19:50 Dose: Not Given - Labs Labs: 03/20/18 05:00 03/20/18 05:00 PT 22.1 Seconds (9.8-13.1) H 03/20/18 05:00 INR 2.0 03/20/18 05:00 APTT 35.4 Seconds (25.6-37.1) 03/20/18 05:00 - Constitutional Appears: Chronically Ill - Head Exam Head Exam: NORMAL INSPECTION - Eye Exam Eye Exam: PERRL - ENT Exam Additional comments: Extubated. - Neck Exam Neck Exam: Normal Inspection - Respiratory Exam Respiratory Exam: Decreased Breath Sounds (at bases), Rhonchi (scattered) - Cardiovascular Exam Cardiovascular Exam: REGULAR RHYTHM Additional comments: PPM - GI/Abdominal Exam GI & Abdominal Exam: Soft, Normal Bowel Sounds - Extremities Exam Extremities Exam: Pedal Edema Additional comments: R-L TKR - Neurological Exam Neurological Exam: Awake Additional comments: lethargic, arousable, follows simple commands,generalized weakness - Psychiatric Exam Additional comments: Unable to assess - Skin Skin Exam: Pallor Additional comments: Jaundice Assessment and Plan (1) Acute respiratory failure Status: Acute (2) CHF (congestive heart failure) Status: Acute (3) Altered mental status Status: Acute (4) UTI (urinary tract infection) Status: Acute (5) Difficulty with speech Status: Chronic (6) CAD (coronary artery disease) Status: Chronic (7) Generalized weakness Status: Chronic (8) Anxiety Status: Chronic (9) Jaundice Status: Acute (10) COPD (chronic obstructive pulmonary disease) Status: Acute (11) AICD (automatic cardioverter/defibrillator) present Status: Chronic - Assessment and Plan (Free Text) Plan: extubated, T Bili 3.7, Liver enzymes decreasing, INR 2, Hgb 10.1, on Levophed for low BP and Levophed for CHF, continue Lasix, Protonix, Versed PRN and rest of treatment Critical care time: 40 minutes.
--- NOTE | 2018-03-20 17:11 | PCM.PROC ---
Procedures Attestation:: I certify that I have explained the specified Operation(s) or Procedure(s), risks, benefits and reasonable alternatives to the Patient and/or other person responsible. The opportunity was given to ask questions and all questions answered - Intubation Sedative: None Laryngoscope: Luciana (#3) ET Tube Size: 8.0 ET Tube Uncuffed: No ET Tube Secured at Depth: 26 ET Tube Secured Locarion: Lips ET Tube Placement Confirmation: Visualized Passing Through Cords, Breath Sounds Equal Bilaterally, No Breath Sounds Over Epigastrum, Confirmation w/Capnometry Patient Tolerated Procedure: Well Procedure Immediate Complications: None Additional comments: Patient re-intubated after being given an EXTUBATION TRIAL. CXR this AM showed malposition of ETT tip high above kailee. Attempts to push ETT further downward approx 3-4cm not successful with obstruction to passage. Repeat CXR showed essentially inchnaged position of ETT and even more malpositioned. Decision made to give him a SBT trial which he toleraed well on low level CPAP PS, then decision made to extubate and placed onto 40% CAM. No desaturation noted, but he remained lethargic and hemodynamically unstable with increasing vasopressor requirements. Discussed with regarding any Advance Directives regarding life support measures and there were none. Therefore, underwent re-intubation without further incident and tolerated well.
[2018-03-21] MEDS: Milrinone 20mg/100ml D5W 100 ML IV SCH ×5 (00:50→21:17)
[2018-03-21] MEDS: Albuterol-Ipratrop 3 mg / 0.5 (3 ml) UD INH SCH ×4 (01:12→19:49)
[2018-03-21 06:09] LABS: ABG ALLEN TEST YES; ARTERIAL BLOOD GAS HEMOGLOBIN 10.3 g/dL (11.7-17.4); ARTERIAL BLOOD GAS O2 CAPACITY 14.4 mL/dL (16-24); ARTERIAL BLOOD GAS O2 CONTENT 14.4 ML/dL (15-23); ARTERIAL BLOOD GAS O2 SAT 100.1 % (95-98); ARTERIAL BLOOD GAS PCO2 45 mm/Hg (35-45); ARTERIAL BLOOD GAS PH 7.48 (7.35-7.45); ARTERIAL BLOOD GAS PO2 164 mm/Hg (80-100); ARTERIAL BLOOD GAS TCO2 34.9 mmol/L (22-28)
[2018-03-21 06:19] LABS: HEMOGLOBIN 10.1 g/dL (12.0-18.0); MEAN CELL VOLUME 93.6 fl (80.0-94.0); MEAN CORPUSCULAR HEMOGLOBIN 30.4 pg (27.0-31.0); MEAN CORPUSCULAR HGB CONC 32.5 g/dL (33.0-37.0); RBC 3.31 Mil/uL (4.40-5.90); RED CELL DISTRIBUTION WIDTH 21.1 % (11.5-14.5)
--- NOTE | 2018-03-21 06:43 | CP.PCM.PN ---
Subjective - Date & Time of Evaluation Date of Evaluation: 03/21/18 Time of Evaluation: 06:42 - Subjective Subjective: GI Fellow PGY4, Progress note. Yesterdays events noted. Continues to bleed per ETT. No GI active bleeding per NG tube or melena. Pressor requirements increasing. Objective - Vital Signs/Intake and Output Vital Signs (last 24 hours): Temp Pulse Resp BP Pulse Ox 99.8 F H 125 H 22 100/59 L 100 03/21/18 05:00 03/21/18 06:00 03/21/18 06:00 03/21/18 06:00 03/21/18 06:00 Intake and Output: 03/20/18 03/21/18 18:59 06:59 Intake Total 1957 1416 Output Total 3000 Balance -1043 1416 - Medications Medications: Current Medications Acetaminophen (Tylenol 325mg Tab) 650 mg PO Q4 PRN PRN Reason: Pain, Mild (1-3) Albuterol/Ipratropium (Duoneb 3 Mg/0.5 Mg (3 Ml) Ud) 3 ml INH RQ6 EUGENIO Last Admin: 03/21/18 01:12 Dose: 3 ml Bisacodyl (Dulcolax) 10 mg [place] DAILY PRN PRN Reason: No bowel movement x3days Furosemide (Lasix) 40 mg IV DAILY PRN PRN Reason: Shortness of Breath Milrinone Lactate/Dextrose (Primacor 20mg/100ml D5w) 100 mls @ 10.614 mls/hr IV .Q9H26M EUGENIO; 0.375 MCG/KG/MIN PRN Reason: Protocol Last Admin: 03/21/18 06:00 Dose: 0.375 mcg/kg/min, 10.614 mls/hr Norepinephrine Bitartrate 8 mg (/ Dextrose) 258 mls @ 38.7 mls/hr IV .Q6H40M ONE; 20 MCG/MIN PRN Reason: Protocol Stop: 03/21/18 12:29 Magnesium Hydroxide (Milk Of Magnesia) 30 ml PO HS PRN PRN Reason: No bowel movement x2 days Midazolam HCl (Versed Inj) 2 mg IV Q6H PRN PRN Reason: Agitation Last Admin: 03/20/18 03:14 Dose: 2 mg [id number] Ethyl Esters (Lovaza) 1 gm PO Q12 EUGENIO Last Admin: 03/20/18 20:05 Dose: 1 gm Oxymetazoline HCl (Nasal Decongestant 15 Ml) 1 spr NS Q12 PRN PRN Reason: Nasal congestion Last Admin: 03/16/18 16:47 Dose: 1 spr Pantoprazole Sodium (Protonix Inj) 40 mg IVP Q12 [facility] Last Admin: 03/20/18 20:05 Dose: 40 mg Tamsulosin HCl (Flomax) 0.4 mg PO QPM [facility] Last Admin: 03/16/18 19:50 Dose: Not Given - Labs Labs: 03/21/18 06:00 03/20/18 05:00 PT 22.1 Seconds (9.8-13.1) H 03/20/18 05:00 INR 2.0 03/20/18 05:00 APTT 35.4 Seconds (25.6-37.1) 03/20/18 05:00 - Constitutional Appears: Chronically Ill - Head Exam Head Exam: ATRAUMATIC - Eye Exam Eye Exam: EOMI, Normal appearance, PERRL - ENT Exam Additional comments: Intubated. - Respiratory Exam Respiratory Exam: Clear to Ausculation Bilateral, NORMAL BREATHING PATTERN. absent: Wheezes - Cardiovascular Exam Cardiovascular Exam: Tachycardia - GI/Abdominal Exam GI & Abdominal Exam: Soft, Normal Bowel Sounds. absent: Tenderness - Extremities Exam Extremities Exam: Full ROM, Normal Capillary Refill, Normal Inspection. absent : Joint Swelling, Pedal Edema - Neurological Exam Neurological Exam: Altered. absent: Alert, Oriented x3 - Psychiatric Exam Psychiatric exam: Flat Affect - Skin Skin Exam: Dry, Intact Assessment and Plan - Assessment and Plan (Free Text) Assessment: #Ascites - likely cardiac #Elevated liver enzymes - likely due to right heart failure and mild ischemic hepatitis. #Hepatosteatosis #Questionable GI Bleed #Acute systolic CHF - EF less than 25%, s/p ICD #CAD #CVA #COPD Plan: -Continue supportive/critical care -Imaging findings noted for worsening ascites, normal CBD, hepatomegaly -Hb stable, doubt active GI bleed at this time. -Recommend Dx/Tx paracentesis when stable. Recommend Standard work-up. Serum/ ascites TP important to r/o cardiac causes. -Bili elevation noted. Continue to follow. Likely from the hepatic insult form hypotension and RHF, it should plateau and decrease in the next few days as the AST/ALT is improving. -Continue PPI -No endoscopic procedures planned at this time. -Signing off. Please reconsult if patient status changes and concern for GI related problem.
[2018-03-21 06:47] LABS: BLOOD UREA NITROGEN 12 mg/dl (9-20); CALCIUM 7.8 mg/dL (8.4-10.2); GFR AFRICAN-AMERICAN > 60; GFR NON-AFRICAN AMERICAN > 60
--- NOTE | 2018-03-21 07:39 | RAD ---
Date of service: 03/20/2018 HISTORY: re-intubation COMPARISON: Portable chest 04/13/2018 10:07 a.m.. FINDINGS: And endotracheal tube terminates 2 cm of the kailee. Is is tube is stable as well as right central venous line and pacemaker/AICD. LUNGS: No signal change in pulmonary vascular congestion related opacity. Cardiac silhouette is stable. Underlying mid right pulmonary opacity persists as well as left basilar opacity, with left sided findings likely a function of increasing pleural effusion. No pneumothorax bilaterally. No definite right pleural effusion. A skin fold is identified at the right chest laterally. PLEURA: As above. CARDIOVASCULAR: As above. OSSEOUS STRUCTURES: No significant abnormalities. VISUALIZED UPPER ABDOMEN: Normal. OTHER FINDINGS: None. IMPRESSION: Endotracheal tube is replaced terminating in an adequate position with remaining tubes and catheters unremarkable in the interval. CHF persists with increasing but still mild left pleural effusion present. Underlying atelectasis or infiltrate is not excluded at the left base and is seen at the mid right lung zone.
[2018-03-21] MEDS: Omega-3-Acid Ethyl Esters 1 GM Cap PO SCH ×2 (08:11→20:47)
--- NOTE | 2018-03-21 09:19 | RAD ---
Date of service: 03/21/2018 PROCEDURE: CHEST RADIOGRAPH, 1 VIEW HISTORY: Pt intubated, ETT placement COMPARISON: Portable chest 03/20/2018 5:42 p.m.. FINDINGS: Right central venous line, endotracheal and nasogastric tubes as well as pacemaker/face CT appear stable. LUNGS: Persistent pulmonary vascular congestion without interval worsening. Stable cardiomediastinal silhouette. Stable mild left pleural effusion with none identified at the right. No pneumothorax bilaterally. Retrocardiac and mid right pulmonary airspace disease remain. PLEURA: As above. CARDIOVASCULAR: As above. OSSEOUS STRUCTURES: No significant abnormalities. VISUALIZED UPPER ABDOMEN: Normal. OTHER FINDINGS: None. IMPRESSION: Stable pulmonary vascular congestion and limited bilateral airspace disease. Smaller pleural effusion unchanged.
[2018-03-21] MEDS: Potassium Chloride 20 mEq 100 ML IVPB SCH ×2 (11:39→13:43)
--- NOTE | 2018-03-21 11:54 | CP.CCUPN ---
<Sultan Essence - Last Filed: 03/21/18 16:34> CCU Subjective - Physician Review Subjective (Free Text): 03/21/18 11:54 Patient seen and examined during rounds today. Patient is s/p intubation. Pt responds to verbal and tactile stimulus. Pt had temperature of 100.3 F last night. MAP >65 with levophed and milrinone. CCU Objective - Vital Signs / Intake & Output Vital Signs (Last 4 hours): Vital Signs Pulse Resp BP Pulse Ox 03/21/18 11:00 126 H 13 99/59 L 100 03/21/18 10:00 127 H 12 91/71 L 100 03/21/18 09:13 100/44 L 03/21/18 09:00 129 H 12 91/71 L 100 Intake and Output (Last 8hrs): Intake & Output 03/20/18 03/21/18 03/21/18 22:59 06:59 14:59 Intake Total 1391 950 218 Output Total 1800 500 Balance -409 450 218 Weight 94.347 kg Intake: IV 641 350 168 Oral 0 100 Tube Feeding 250 300 50 Blood Product 300 Free Water Flush 200 200 Output: Urine 1800 500 Urethral (Chen) 1800 500 - Physical Exam Head: Positive for: Atraumatic, Other (Jaundiced) Pupils: Positive for: PERRL Extroacular Muscles: Positive for: EOMI Conjunctiva: Positive for: Normal Mouth: Positive for: Other (Intubated) Respiratory/Chest: Negative for: Respiratory Distress, Accessory Muscle Use, Wheezes, Rales, Rhonchi Cardiovascular: Positive for: Normal S1, S2, Tachycardic Abdomen: Positive for: Normal Bowel Sounds. Negative for: Tenderness, Distention, Peritoneal Signs Upper Extremity: Positive for: Edema (Mild edema of B/L forearms and hands. No signs of infection) Lower Extremity: Positive for: Edema (1+ ) Neurological: Positive for: Other (Intubated, response to verbal and tactile stimulus) Skin: Positive for: Other Psychiatric: Positive for: Alert - Medications Active Medications: Active Medications Generic Name Dose Route Start Last Admin Trade Name Freq PRN Reason Stop Dose Admin Acetaminophen 650 mg 03/13/18 01:35 Tylenol 325mg Tab PO Q4 PRN Pain, Mild (1-3) Albuterol/Ipratropium 3 ml 03/13/18 02:00 03/21/18 08:52 Duoneb 3 Mg/0.5 Mg (3 Ml) Ud INH 3 ml RQ6 EUGENIO Administration Bisacodyl 10 mg 03/13/18 01:35 Dulcolax [place] DAILY PRN No bowel movement x3days Furosemide 40 mg 03/21/18 09:00 03/21/18 09:13 Lasix IVP 40 mg Q12 EUGENIO Administration Milrinone Lactate/Dextrose 100 mls @ 10.614 mls/hr 03/19/18 16:30 03/21/18 10 :34 Primacor 20mg/100ml D5w IV 0.375 mcg/kg/min .Q9H26M EUGENIO 10.614 mls/hr Protocol Administration 0.375 MCG/KG/MIN Norepinephrine Bitartrate 8 mg 258 mls @ 38.7 mls/hr 03/21/18 05:50 03/21/18 08:10 / Dextrose IV 03/21/18 12:29 20 mcg/min .Q6H40M ONE 38.7 mls/hr Protocol Administration 20 MCG/MIN Potassium Chloride 100 mls @ 50 mls/hr 03/21/18 12:00 03/21/18 11:39 Potassium Chloride 20 Meq/100 Ml IVPB 03/21/18 15:59 50 mls/hr Q2 EUGENIO Administration Magnesium Hydroxide 30 ml 03/13/18 01:35 Milk Of Magnesia PO HS PRN No bowel movement x2 days Midazolam HCl 2 mg 03/17/18 10:45 03/20/18 03:14 Versed Inj IV 2 mg Q6H PRN Administration Agitation [id number] Ethyl Esters 1 gm 03/13/18 09:00 03/21/18 08:11 Lovaza PO 1 gm Q12 EUGENIO Administration Oxymetazoline HCl 1 spr 03/16/18 16:36 03/16/18 16:47 Nasal Decongestant 15 Ml NS 1 spr Q12 PRN Administration Nasal congestion Pantoprazole Sodium 40 mg 03/18/18 21:00 03/21/18 08:11 Protonix Inj IVP 40 mg Q12 EUGENIO Administration Tamsulosin HCl 0.4 mg 03/13/18 18:00 03/16/18 19:50 Flomax PO Not Given QPM EUGENIO - Patient Studies Lab Studies: Microbiology Studies 03/19/18 11:10 Gram Stain - Final Trachasp Sputum Culture - Preliminary No growth. Lab Studies 03/21/18 03/21/18 03/21/18 Range/Units 06:00 06:00 06:00 WBC 5.0 (4.8-10.8) K/uL RBC 3.31 L (4.40-5.90) Mil/uL Hgb 10.1 L (12.0-18.0) g/dL Hct 31.0 L (35.0-51.0) % MCV 93.6 (80.0-94.0) fl MCH 30.4 (27.0-31.0) pg MCHC 32.5 L (33.0-37.0) g/dL RDW 21.1 H (11.5-14.5) % Plt Count 81 L (130-400) K/uL pCO2 45 (35-45) mm/Hg pO2 164 H (80-100) mm/Hg HCO3 32.0 H (21-28) mmol/L ABG pH 7.48 H (7.35-7.45) ABG Total CO2 34.9 H (22-28) mmol/L ABG O2 Saturation 100.1 H (95-98) % ABG O2 Content 14.4 L (15-23) ML/dL ABG Base Excess 9.0 H (-2.0-3.0) mmol/L ABG Hemoglobin 10.3 L (11.7-17.4) g/dL ABG Carboxyhemoglobin 1.7 H (0.5-1.5) % POC ABG HHb (Measured) -0.1 L (0.0-5.0) % ABG Methemoglobin 1.4 (0.0-3.0) % ABG O2 Capacity 14.4 L (16-24) mL/dL Chris Test Yes A-a O2 Difference 136.0 mm/Hg Hgb O2 Saturation 96.9 (95.0-98.0) % Vent Mode A/c Mechanical Rate 12 FiO2 50.0 % Tidal Volume 500 PEEP 5 Sodium 142 (132-148) mmol/l Potassium 3.5 L (3.6-5.0) MMOL/L Chloride 99 (98-107) mmol/L Carbon Dioxide 36 H (22-30) mmol/L Anion Gap 11 (10-20) BUN 12 (9-20) mg/dl Creatinine 0.8 (0.8-1.5) mg/dl Est GFR ( Amer) > 60 Est GFR (Non-Af Amer) > 60 Random Glucose 146 H (75-110) mg/dL Calcium 7.8 L (8.4-10.2) mg/dL 03/20/18 Range/Units 11:48 WBC (4.8-10.8) K/uL RBC (4.40-5.90) Mil/uL Hgb (12.0-18.0) g/dL Hct (35.0-51.0) % MCV (80.0-94.0) fl MCH (27.0-31.0) pg MCHC (33.0-37.0) g/dL RDW (11.5-14.5) % Plt Count (130-400) K/uL pCO2 50 H (35-45) mm/Hg pO2 119 H (80-100) mm/Hg HCO3 31.6 H (21-28) mmol/L ABG pH 7.44 (7.35-7.45) ABG Total CO2 35.5 H (22-28) mmol/L ABG O2 Saturation 99.5 H (95-98) % ABG O2 Content 15.2 (15-23) ML/dL ABG Base Excess 8.6 H (-2.0-3.0) mmol/L ABG Hemoglobin 11.1 L (11.7-17.4) g/dL ABG Carboxyhemoglobin 2.1 H (0.5-1.5) % POC ABG HHb (Measured) 0.5 (0.0-5.0) % ABG Methemoglobin 1.3 (0.0-3.0) % ABG O2 Capacity 15.3 L (16-24) mL/dL Chris Test Yes A-a O2 Difference 104.0 mm/Hg Hgb O2 Saturation 96.1 (95.0-98.0) % Vent Mode Mechanical Rate FiO2 40.0 % Tidal Volume PEEP Sodium (132-148) mmol/l Potassium (3.6-5.0) MMOL/L Chloride (98-107) mmol/L Carbon Dioxide (22-30) mmol/L Anion Gap (10-20) BUN (9-20) mg/dl Creatinine (0.8-1.5) mg/dl Est GFR ( Amer) Est GFR (Non-Af Amer) Random Glucose (75-110) mg/dL Calcium (8.4-10.2) mg/dL Laboratory Results - last 24 hr 03/20/18 03/21/18 03/21/18 11:48 06:00 06:00 WBC 5.0 RBC 3.31 L Hgb 10.1 L Hct 31.0 L MCV 93.6 MCH 30.4 MCHC 32.5 L RDW 21.1 H Plt Count 81 L pCO2 50 H 45 pO2 119 H 164 H HCO3 31.6 H 32.0 H ABG pH 7.44 7.48 H ABG Total CO2 35.5 H 34.9 H ABG O2 Saturation 99.5 H 100.1 H ABG O2 Content 15.2 14.4 L ABG Base Excess 8.6 H 9.0 H ABG Hemoglobin 11.1 L 10.3 L ABG Carboxyhemoglobin 2.1 H 1.7 H POC ABG HHb (Measured) 0.5 -0.1 L ABG Methemoglobin 1.3 1.4 ABG O2 Capacity 15.3 L 14.4 L Chris Test Yes Yes A-a O2 Difference 104.0 136.0 Hgb O2 Saturation 96.1 96.9 Vent Mode A/c Mechanical Rate 12 FiO2 40.0 50.0 Tidal Volume 500 PEEP 5 Sodium Potassium Chloride Carbon Dioxide Anion Gap BUN Creatinine Est GFR ( Amer) Est GFR (Non-Af Amer) Random Glucose Calcium 03/21/18 06:00 WBC RBC Hgb Hct MCV MCH MCHC RDW Plt Count pCO2 pO2 HCO3 ABG pH ABG Total CO2 ABG O2 Saturation ABG O2 Content ABG Base Excess ABG Hemoglobin ABG Carboxyhemoglobin POC ABG HHb (Measured) ABG Methemoglobin ABG O2 Capacity Chris Test A-a O2 Difference Hgb O2 Saturation Vent Mode Mechanical Rate FiO2 Tidal Volume PEEP Sodium 142 Potassium 3.5 L Chloride 99 Carbon Dioxide 36 H Anion Gap 11 BUN 12 Creatinine 0.8 Est GFR ( Amer) > 60 Est GFR (Non-Af Amer) > 60 Random Glucose 146 H Calcium 7.8 L Fingerstick Blood Sugar Results: 88 Review of Systems - Review of Systems Review of Systems: unable to perform ROS because pt is intubated Critical Care Progress Note - Nutrition Nutrition: Nutrition Category Date Time Status NPO Diet [DIET] Diets 03/17/18 Lunch Active Assessment/Plan - Assessment and Plan (Free Text) Assessment: 77 yo male with PMHx CVA, hepatitis A & B, CHF, AICD, COPD, long-term resident, mild to moderate dementia. Pt was admitted to telemetry on 03/12 for AMS, weakness, jaundice, transaminitis. [employer] was called on 03/16/18 for worsening dyspnea. Pt was subsequently intubated and admitted to ICU on 03/16 for acute respiratory failure. Pt was briefly extubated and re-intubated yesterday due to respiratory distress. Pulmonary: -[employer] Dr. Mueller on board -Acute respiratory failure s/p intubation on 03/16/18 -CXR shows improved venous congestion and pleura effusion -Pt received one dose of laxis 40 mg ivp. -Sputum c&s shows fungus. Start micofungin 100 mg IVP Q24 hrs for oropharyngeal candidiasis. Cardiovascular: -[employer] Dr. Peralta on board -CHF: proBNP [id number] on 03/18/18 -Hypotension: MAP>65 with levophed -Continue milrinone 0.75 mcg/kg/min IV GI: -GI on board -Stable H&H -Continue protonix 40 mg IV q12h for possible bleeding ulcer. -Transaminitis trending down but total bilirubin is trending up 3.75 mg, f/u CMP -CT of abdomen and pelvis on 03/12/18 shows moderate abdomen and pelvis ascites. Renal: -Strict monitor of Intake and output -Received 1 dose of lasix 40 mg ivp this morning. Had total urine output >10 L in the last 3 days. -Hypokalemia:Potassium 3.5, continue with KCl 40 meq. f/u CMP -Hypophosphatemia: 2.0; Continue with potassium phosphate 30 mmol IVP. f/u phosphate Hematology: -INR 1.6 0 today s/p 15 units FFP in total with Vitamin K. Monitor coag. -Thrombocytopenia: platelet 81, fibrinogen 277. Continue to monitor ID: -sputum c&s grows fungal species. Start micofungin 100 mg ivp q24 hr. DVT prophylaxis - SCD's GI prophylaxis - protonix IV q12h Code status - full code <Miquel Barnard - Last Filed: 03/21/18 23:32> CCU Subjective - Physician Review Subjective (Free Text): Attestation: Patient seen and examined at the bedside with Resident Dr. Darell Lowry; and I agree with his outline of plans and management documented below as discussed on AM rounds reflecting my review of all applicable clinical data, and participation in the care of the patient throughout the day in ICU; today, March 21, 2018.
[2018-03-21 12:00] LABS: INR 1.6; PROTHROMBIN TIME 17.6 Seconds (9.8-13.1)
[2018-03-21 12:02] LABS: PARTIAL THROMBOPLASTIN TIME 36.2 Seconds (25.6-37.1)
[2018-03-21] MEDS ORDERED: Potassium Phosphate 30 MMOLE in Dextrose 5% In Water 250 ML IV ONE ×2 (12:34→12:45)
--- NOTE | 2018-03-21 14:46 | CP.PCM.PN ---
Subjective - Date & Time of Evaluation Date of Evaluation: 03/21/18 Time of Evaluation: 12:20 - Subjective Subjective: F/U Respiratory Failure S/P Re-intubated. After extubated trial in AM yesterday, Pt appeared tachypneic/ agitated in the afternoon, HR 134, RR 44, BP systolic 87, Pt was re-intubated. Objective - Vital Signs/Intake and Output Vital Signs (last 24 hours): Temp Pulse Resp BP Pulse Ox 100.3 F H 129 H 13 113/58 L 100 03/21/18 12:00 03/21/18 13:00 03/21/18 13:00 03/21/18 13:00 03/21/18 13:00 Intake and Output: 03/21/18 03/21/18 06:59 18:59 Intake Total 1716 636 Output Total 500 Balance 1216 636 - Medications Medications: Current Medications Acetaminophen (Tylenol 325mg Tab) 650 mg PO Q4 PRN PRN Reason: Pain, Mild (1-3) Albuterol/Ipratropium (Duoneb 3 Mg/0.5 Mg (3 Ml) Ud) 3 ml INH RQ6 EUGENIO Last Admin: 03/21/18 13:29 Dose: 3 ml Bisacodyl (Dulcolax) 10 mg [place] DAILY PRN PRN Reason: No bowel movement x3days Furosemide (Lasix) 40 mg IVP Q12 EUGENIO Last Admin: 03/21/18 09:13 Dose: 40 mg Milrinone Lactate/Dextrose (Primacor 20mg/100ml D5w) 100 mls @ 10.614 mls/hr IV .Q9H26M EUGENIO; 0.375 MCG/KG/MIN PRN Reason: Protocol Last Admin: 03/21/18 10:34 Dose: 0.375 mcg/kg/min, 10.614 mls/hr Potassium Chloride (Potassium Chloride 20 Meq/100 Ml) 100 mls @ 50 mls/hr IVPB Q2 EUGENIO Stop: 03/21/18 15:59 Last Admin: 03/21/18 13:43 Dose: 50 mls/hr Potassium Phosphate 30 mmole/ (Dextrose) 260 mls @ 65 mls/hr IV .Q4H ONE Stop: 03/21/18 16:44 Last Admin: 03/21/18 14:18 Dose: 65 mls/hr Micafungin Sodium 100 mg/ (Sodium Chloride) 100 mls @ 100 mls/hr IVPB DAILY EUGENIO PRN Reason: Protocol Norepinephrine Bitartrate 8 mg (/ Dextrose) 258 mls @ 0 mls/hr IV .Q0M EUGENIO; Per Protocol PRN Reason: Protocol Stop: 03/22/18 14:04 Last Admin: 03/21/18 14:19 Dose: 46.9 mls/hr Magnesium Hydroxide (Milk Of Magnesia) 30 ml PO HS PRN PRN Reason: No bowel movement x2 days [id number] Ethyl Esters (Lovaza) 1 gm PO Q12 EUGENIO Last Admin: 03/21/18 08:11 Dose: 1 gm Oxymetazoline HCl (Nasal Decongestant 15 Ml) 1 spr NS Q12 PRN PRN Reason: Nasal congestion Last Admin: 03/16/18 16:47 Dose: 1 spr Pantoprazole Sodium (Protonix Inj) 40 mg IVP Q12 [facility] Last Admin: 03/21/18 08:11 Dose: 40 mg Tamsulosin HCl (Flomax) 0.4 mg PO QPM [facility] Last Admin: 03/16/18 19:50 Dose: Not Given - Labs Labs: 03/21/18 06:00 03/21/18 06:00 PT 17.6 Seconds (9.8-13.1) H 03/21/18 11:39 INR 1.6 03/21/18 11:39 APTT 36.2 Seconds (25.6-37.1) 03/21/18 11:39 - Constitutional Appears: Chronically Ill - Head Exam Head Exam: NORMAL INSPECTION - Eye Exam Eye Exam: PERRL - ENT Exam Additional comments: Intubated - Neck Exam Neck Exam: Normal Inspection - Respiratory Exam Respiratory Exam: Decreased Breath Sounds (at bases), Rhonchi (scattered) - Cardiovascular Exam Cardiovascular Exam: REGULAR RHYTHM Additional comments: PPM - GI/Abdominal Exam GI & Abdominal Exam: Soft, Normal Bowel Sounds - Extremities Exam Extremities Exam: Pedal Edema Additional comments: R-L TKR - Neurological Exam Neurological Exam: Awake Additional comments: Intubated, open eyes to verbal stimuli, squeezing hands on commands, generalized weakness. - Psychiatric Exam Additional comments: Intubated, unable to assess. - Skin Skin Exam: Warm Additional comments: Jaundice Assessment and Plan (1) Acute respiratory failure Status: Acute (2) CHF (congestive heart failure) Status: Chronic (3) CAD (coronary artery disease) Status: Chronic (4) Generalized weakness Status: Chronic (5) Anxiety Status: Chronic (6) Jaundice Status: Acute (7) COPD (chronic obstructive pulmonary disease) Status: Acute (8) AICD (automatic cardioverter/defibrillator) present Status: Chronic (9) Altered mental status Status: Acute (10) Difficulty with speech Status: Chronic - Assessment and Plan (Free Text) Plan: Continue Levophed, Primacor, Lasix and rest of Tx, Micafungin ,Sputum yeast, continue ventilatory support, attempt of weaning. Critical care time: 30 minutes
[2018-03-21] MEDS: Micafungin 100 MG in Sodium Chloride 0.9% 100 ML IVPB SCH (15:16)
[2018-03-22] MEDS: Albuterol-Ipratrop 3 mg / 0.5 (3 ml) UD INH SCH ×4 (01:11→19:17)
[2018-03-22] MEDS: Milrinone 20mg/100ml D5W 100 ML IV SCH ×3 (03:11→16:29)
[2018-03-22 04:32] LABS: ABG ALLEN TEST YES; ARTERIAL BLOOD GAS HCO3 31.8 mmol/L (21-28); ARTERIAL BLOOD GAS HEMOGLOBIN 10.2 g/dL (11.7-17.4); ARTERIAL BLOOD GAS O2 CAPACITY 14.2 mL/dL (16-24); ARTERIAL BLOOD GAS O2 CONTENT 14.2 ML/dL (15-23); ARTERIAL BLOOD GAS O2 SAT 100.1 % (95-98); ARTERIAL BLOOD GAS PCO2 42 mm/Hg (35-45); ARTERIAL BLOOD GAS PO2 138 mm/Hg (80-100); ARTERIAL BLOOD GAS TCO2 34.1 mmol/L (22-28)
[2018-03-22 06:03] LABS: MEAN CELL VOLUME 92.8 fl (80.0-94.0); MEAN CORPUSCULAR HEMOGLOBIN 30.9 pg (27.0-31.0); MEAN CORPUSCULAR HGB CONC 33.3 g/dL (33.0-37.0); RBC 3.23 Mil/uL (4.40-5.90); RED CELL DISTRIBUTION WIDTH 20.8 % (11.5-14.5); WHITE BLOOD COUNT 5.3 K/uL (4.8-10.8)
[2018-03-22 06:20] LABS: INR 1.5; PROTHROMBIN TIME 16.9 Seconds (9.8-13.1)
[2018-03-22 06:23] LABS: PARTIAL THROMBOPLASTIN TIME 37.5 Seconds (25.6-37.1)
[2018-03-22 06:29] LABS: ALBUMIN 3.2 g/dL (3.5-5.0); ALT/SGPT 61 U/L (21-72); AST/SGOT 48 U/L (17-59); BLOOD UREA NITROGEN 14 mg/dl (9-20); CALCIUM 7.7 mg/dL (8.4-10.2); GFR AFRICAN-AMERICAN > 60; GFR NON-AFRICAN AMERICAN > 60
--- NOTE | 2018-03-22 07:22 | RAD ---
Date of service: 03/22/2018 PROCEDURE: HISTORY: pt intubated; daily ETT placement COMPARISON: TECHNIQUE: FINDINGS: ETT above the kailee. No change from prior exam IMPRESSION: As above.
[2018-03-22] MEDS: Omega-3-Acid Ethyl Esters 1 GM Cap PO SCH ×2 (08:32→21:38)
[2018-03-22] MEDS: Micafungin 100 MG in Sodium Chloride 0.9% 100 ML IVPB SCH (08:33)
--- NOTE | 2018-03-22 13:47 | CARD ---
APPROVED REPORT Date of service: 03/22/2018 <Conclusion> Sinus tachycardia Left bundle branch block Abnormal ECG
--- NOTE | 2018-03-22 15:15 | CP.PCM.PN ---
Subjective - Date & Time of Evaluation Date of Evaluation: 03/22/18 Time of Evaluation: 10:20 - Subjective Subjective: F/U Respiratory failure Pt intubated, awake , follows simple commands Objective - Vital Signs/Intake and Output Vital Signs (last 24 hours): Temp Pulse Resp BP Pulse Ox 98.7 F 137 H 23 105/58 L 100 03/22/18 08:00 03/22/18 08:00 03/22/18 08:00 03/22/18 08:31 03/22/18 08:00 Intake and Output: 03/22/18 03/22/18 06:59 18:59 Intake Total 1638 100 Output Total 250 Balance 1388 100 - Medications Medications: Current Medications Acetaminophen (Tylenol 325mg Tab) 650 mg PO Q4 PRN PRN Reason: Pain, Mild (1-3) Albuterol/Ipratropium (Duoneb 3 Mg/0.5 Mg (3 Ml) Ud) 3 ml INH RQ6 EUGENIO Last Admin: 03/22/18 13:56 Dose: 3 ml Bisacodyl (Dulcolax) 10 mg [place] DAILY PRN PRN Reason: No bowel movement x3days Furosemide (Lasix) 40 mg IVP Q12 EUGEN[facility] Last Admin: 03/22/18 08:31 Dose: 40 mg Milrinone Lactate/Dextrose (Primacor 20mg/100ml D5w) 100 mls @ 10.614 mls/hr IV .Q9H26M EUGENIO; 0.375 MCG/KG/MIN PRN Reason: Protocol Last Titration: 03/22/18 09:30 Dose: 0.375 mcg/kg/min, 10.614 mls/hr Micafungin Sodium 100 mg/ (Sodium Chloride) 100 mls @ 100 mls/hr IVPB DAILY EUGENIO PRN Reason: Protocol Last Admin: 03/22/18 08:33 Dose: 100 mls/hr Norepinephrine Bitartrate 8 mg (/ Dextrose) 258 mls @ 48.37 mls/hr IV .Q5H21M ONE PRN Reason: 25 MCG/MIN Stop: 03/22/18 18:51 Last Admin: 03/22/18 13:30 Dose: 48.37 mls/hr Norepinephrine Bitartrate 8 mg (/ Dextrose) 258 mls @ 48.37 mls/hr IV .Q5H21M ONE; 25 MCG/MIN PRN Reason: Protocol Stop: 03/22/18 19:40 Magnesium Hydroxide (Milk Of Magnesia) 30 ml PO HS PRN PRN Reason: No bowel movement x2 days Bkdjc-3-[id number] Ethyl Esters (Lovaza) 1 gm PO Q12 [facility] Last Admin: 03/22/18 08:32 Dose: 1 gm Oxymetazoline HCl (Nasal Decongestant 15 Ml) 1 spr NS Q12 PRN PRN Reason: Nasal congestion Last Admin: 03/16/18 16:47 Dose: 1 spr Pantoprazole Sodium (Protonix Inj) 40 mg IVP Q12 [facility] Last Admin: 03/22/18 08:33 Dose: 40 mg Tamsulosin HCl (Flomax) 0.4 mg PO QPM [facility] Last Admin: 03/21/18 17:22 Dose: Not Given - Labs Labs: 03/22/18 04:48 03/22/18 04:48 PT 16.9 Seconds (9.8-13.1) H 03/22/18 04:48 INR 1.5 03/22/18 04:48 APTT 37.5 Seconds (25.6-37.1) H 03/22/18 04:48 - Constitutional Appears: No Acute Distress - Head Exam Head Exam: NORMAL INSPECTION - Eye Exam Eye Exam: PERRL - ENT Exam Additional comments: Intubated - Neck Exam Neck Exam: Normal Inspection - Respiratory Exam Respiratory Exam: Decreased Breath Sounds (at bases), Rhonchi - Cardiovascular Exam Cardiovascular Exam: REGULAR RHYTHM Additional comments: PPM - GI/Abdominal Exam GI & Abdominal Exam: Soft, Normal Bowel Sounds - Extremities Exam Extremities Exam: Pedal Edema Additional comments: edema U/E ,R-L TKR - Neurological Exam Additional comments: Intubated, open eyes to verbal stimuli, follows simple commands, generalized weakness. - Psychiatric Exam Additional comments: Intubated, unable to assess - Skin Skin Exam: Warm (Jaundice) Assessment and Plan (1) Acute respiratory failure Status: Acute (2) CHF (congestive heart failure) Status: Chronic (3) Altered mental status Status: Acute (4) UTI (urinary tract infection) Status: Acute (5) Difficulty with speech Status: Chronic (6) History of permanent cardiac pacemaker placement Status: Deleted (7) CAD (coronary artery disease) Status: Chronic (8) Generalized weakness Status: Chronic (9) Anxiety Status: Chronic (10) Jaundice Status: Acute - Assessment and Plan (Free Text) Plan: Continue Ventilatory support, Levophed, Primacor, Duoneb, Lasix, and rest of Tx. Critical care time: 40 minutes
[2018-03-23] MEDS: Albuterol-Ipratrop 3 mg / 0.5 (3 ml) UD INH SCH ×4 (01:01→19:17)
[2018-03-23] MEDS: Milrinone 20mg/100ml D5W 100 ML IV SCH ×2 (01:54→11:55)
--- NOTE | 2018-03-23 02:56 | PN ---
Copied To: David Garner MD Attending MD: David Garner MD DATE: 03/22/2018 CRITICAL CARE PROGRESS NOTE LOCATION: The patient in ICU, bed 431. SUBJECTIVE: The patient is seen and examined at bedside, status post re-intubation, responds minimally to tactile stimuli. Overnight, AC/PRVC, rate 12, tidal volume 500, FiO2 40%, observed rate 17, observed tidal volume 420, minute ventilation 6.5 liters, oxygen saturation 100%, end tidal CO2 22. PHYSICAL EXAMINATION: VITAL SIGNS: Temperature 100, heart rate 125, blood pressure 97/64, mean arterial pressure 75, saturation 100%. Intake 3600, output 2600, positive balance 1000. HEAD, EYES, EARS, NOSE, AND THROAT: Pupils equal, round, and reactive to light and accommodation. Extraocular muscles intact. Conjunctivae normal, pink. CHEST: Bilateral breath sounds. Clear to auscultation. HEART: Rhythm regular. S1, S2 normal. ABDOMEN: Bowel sounds present. Soft. EXTREMITIES: Mild edema of both forearms and hands. No signs of infection. Lower extremity, edema 1+. NEURO: Intubated, responds to tactile stimuli. SKIN: Without rash. CURRENT MEDICATIONS: Include Tylenol 650 every 4 hours p.r.n., albuterol and Atrovent inhalation every 6 hours, Dulcolax 10 mg daily, Lasix 40 IV every 12, milk of magnesia 30 mL p.o. at bedtime p.r.n., micafungin 100 mg IV daily, milrinone at 10.614 mL per hour, Levophed at 48.37 mL per hour at 25 mcg per minute, Lovaza 1 gm p.o. every 12, nasal oxymetazoline 1 spray to both nostrils every 12, Protonix 40 IV every 12, and Flomax 0.4 mg daily. LABORATORY DATA: WBC 5.3, hemoglobin 10, hematocrit 30, platelet count 69. PT 16.9, INR 1.5, PTT 37.5. ABG: PH 7.50, pCO2 42, pO2 138, saturation 100% on AC 12, 500, 40%, PEEP of 5. SMA-7: Sodium 138, potassium 3.5, chloride 95, CO2 34, blood urea nitrogen 14, creatinine 0.7. ProBNP 24,300. Urinalysis: Rbc 15, wbc less than 1. Immunology: Anti-smooth muscle antibody negative. KATINA screen positive. KATINA titer 1.80. Serology: Hepatitis B surface antigen, core antibody, hepatitis C antibody negative. IMPRESSION: A 77-year-old male with a history of cerebrovascular accident, congestive heart failure, an implantable cardioverter defibrillator, chronic obstructive pulmonary disease, care home resident, [id number] dementia, admitted with altered mental status, weakness, jaundice, and transaminitis, status post [employer] on 03/16/2018 for worsening dyspnea, extubated and re-intubated due to respiratory distress. 1. Pulmonary: Acute respiratory failure, status post re-intubation on 03/21/2018. Chest x-ray shows improved venous congestion and pleural effusion. Sputum culture and sensitivity shows fungus, on micafungin. 2. Cardiovascular: Congestive heart failure with elevated ProBNP, hypertension, on milrinone and Levophed. 3. Gastrointestinal: Stable hemoglobin and hematocrit. No further bleeding noted, on Protonix drip. Transaminitis trending down. CT of abdomen and pelvis shows moderate abdomen and pelvic ascites. 4. Renal, electrolytes corrected. 5. Hematology: Thrombocytopenia, continue to monitor. 6. Infectious Disease: Sputum culture and sensitivity grows some fungal species, on micafungin. 7. Deep venous thrombosis and gastrointestinal prophylaxis. Keep the head of bed 30 degrees up. David Garner MD
[2018-03-23 04:44] LABS: ABG ALLEN TEST YES; ARTERIAL BLOOD GAS HCO3 36.4 mmol/L (21-28); ARTERIAL BLOOD GAS HEMOGLOBIN 10.5 g/dL (11.7-17.4); ARTERIAL BLOOD GAS O2 CAPACITY 14.5 mL/dL (16-24); ARTERIAL BLOOD GAS O2 CONTENT 14.5 ML/dL (15-23); ARTERIAL BLOOD GAS O2 SAT 99.9 % (95-98); ARTERIAL BLOOD GAS PCO2 51 mm/Hg (35-45); ARTERIAL BLOOD GAS PO2 126 mm/Hg (80-100); ARTERIAL BLOOD GAS TCO2 41.4 mmol/L (22-28)
[2018-03-23 05:27] LABS: BASO % 0.8 % (0.0-2.0); EOS # 0.2 K/uL (0.0-0.7); EOS % 4.5 % (0.0-4.0); HEMOGLOBIN 10.1 g/dL (12.0-18.0); LYMPH # 1.2 K/uL (1.0-4.3); LYMPH % 21.2 % (20.0-40.0); MEAN CELL VOLUME 93.1 fl (80.0-94.0); MEAN CORPUSCULAR HEMOGLOBIN 30.1 pg (27.0-31.0); MEAN CORPUSCULAR HGB CONC 32.3 g/dL (33.0-37.0); MEAN PLATELET VOLUME 8.5 fl (7.2-11.7); MONO # 0.7 K/uL (0.0-0.8); MONO % 12.2 % (0.0-10.0); NEUT # 3.3 K/uL (1.8-7.0); NEUT % 61.3 % (50.0-75.0); NRBC % 0.1 % (0.0-0.0); RBC 3.37 Mil/uL (4.40-5.90); RED CELL DISTRIBUTION WIDTH 20.7 % (11.5-14.5); WHITE BLOOD COUNT 5.4 K/uL (4.8-10.8)
[2018-03-23 05:46] LABS: ALT/SGPT 54 U/L (21-72); AST/SGOT 37 U/L (17-59); BLOOD UREA NITROGEN 14 mg/dl (9-20); CALCIUM 7.6 mg/dL (8.4-10.2); GFR AFRICAN-AMERICAN > 60; GFR NON-AFRICAN AMERICAN > 60
[2018-03-23] MEDS: Omega-3-Acid Ethyl Esters 1 GM Cap PO SCH ×2 (09:04→20:23)
[2018-03-23] MEDS: Micafungin 100 MG in Sodium Chloride 0.9% 100 ML IVPB SCH (09:05)
[2018-03-23] MEDS: Potassium CL 10mEq/100ml 100 ML IVPB SCH ×3 (10:53→13:00)
--- NOTE | 2018-03-23 14:05 | CP.PCM.PN ---
Subjective - Date & Time of Evaluation Date of Evaluation: 03/23/18 Time of Evaluation: 11:40 - Subjective Subjective: F/U Respiratory failure. intubated , open eyes to verbal stimuli , follows simple comands Objective - Vital Signs/Intake and Output Vital Signs (last 24 hours): Temp Pulse Resp BP Pulse Ox 99.4 F 120 H 14 95/69 L 100 03/23/18 12:00 03/23/18 12:00 03/23/18 12:00 03/23/18 12:00 03/23/18 12:00 Intake and Output: 03/23/18 03/23/18 06:59 18:59 Intake Total 596 666 Output Total 2350 Balance -5024 666 - Medications Medications: Current Medications Acetaminophen (Tylenol 325mg Tab) 650 mg PO Q4 PRN PRN Reason: Pain, Mild (1-3) Albuterol/Ipratropium (Duoneb 3 Mg/0.5 Mg (3 Ml) Ud) 3 ml INH RQ6 EUGENIO Last Admin: 03/23/18 13:10 Dose: Not Given Bisacodyl (Dulcolax) 10 mg [place] DAILY PRN PRN Reason: No bowel movement x3days Furosemide (Lasix) 40 mg IVP Q12 [facility] Last Admin: 03/23/18 09:03 Dose: 40 mg Milrinone Lactate/Dextrose (Primacor 20mg/100ml D5w) 100 mls @ 10.614 mls/hr IV .Q9H26M EUGENIO; 0.375 MCG/KG/MIN PRN Reason: Protocol Last Admin: 03/23/18 11:55 Dose: 0.37 mcg/kg/min, 10.473 mls/hr Micafungin Sodium 100 mg/ (Sodium Chloride) 100 mls @ 100 mls/hr IVPB DAILY EUGENIO PRN Reason: Protocol Last Admin: 03/23/18 09:05 Dose: 100 mls/hr Norepinephrine Bitartrate 8 mg (/ Dextrose) 258 mls @ 24.18 mls/hr IV .[id number] ONE; 12.5 MCG/MIN PRN Reason: Protocol Stop: 03/23/18 19:46 Last Admin: 03/23/18 10:06 Dose: 12.5 mcg/min, 24.18 mls/hr Magnesium Hydroxide (Milk Of Magnesia) 30 ml PO HS PRN PRN Reason: No bowel movement x2 days Stlog-2-Tjjg Ethyl Esters (Lovaza) 1 gm PO Q12 [facility] Last Admin: 03/23/18 09:04 Dose: 1 gm Oxymetazoline HCl (Nasal Decongestant 15 Ml) 1 spr NS Q12 PRN PRN Reason: Nasal congestion Last Admin: 03/16/18 16:47 Dose: 1 spr Pantoprazole Sodium (Protonix Inj) 40 mg IVP Q12 [facility] Last Admin: 03/23/18 09:05 Dose: 40 mg Tamsulosin HCl (Flomax) 0.4 mg PO QPM [facility] Last Admin: 03/22/18 17:43 Dose: Not Given - Labs Labs: 03/23/18 04:20 03/23/18 04:20 PT 16.9 Seconds (9.8-13.1) H 03/22/18 04:48 INR 1.5 03/22/18 04:48 APTT 37.5 Seconds (25.6-37.1) H 03/22/18 04:48 - Constitutional Appears: Chronically Ill - Head Exam Head Exam: NORMAL INSPECTION - Eye Exam Eye Exam: PERRL - ENT Exam Additional comments: Intubated - Neck Exam Neck Exam: Normal Inspection - Respiratory Exam Respiratory Exam: Decreased Breath Sounds, Rhonchi - Cardiovascular Exam Cardiovascular Exam: REGULAR RHYTHM Additional comments: PPM - GI/Abdominal Exam GI & Abdominal Exam: Soft, Normal Bowel Sounds - Extremities Exam Additional comments: Edema 2+ R arm, 2+ b/l hands. R-L TKR - Neurological Exam Neurological Exam: Awake Additional comments: Intubated, open eyes to verbal stimuli, follows simple commands, generalized weakness - Psychiatric Exam Additional comments: Intubated, unable to assess. - Skin Skin Exam: Warm Additional comments: Jaundice. Assessment and Plan (1) Acute respiratory failure Status: Acute (2) CHF (congestive heart failure) Status: Chronic (3) Altered mental status Status: Acute (4) Difficulty with speech Status: Chronic (5) History of permanent cardiac pacemaker placement Status: Deleted (6) CAD (coronary artery disease) Status: Chronic (7) Jaundice Status: Acute (8) COPD (chronic obstructive pulmonary disease) Status: Acute (9) AICD (automatic cardioverter/defibrillator) present Status: Chronic (10) Anxiety Status: Chronic (11) Generalized weakness Status: Chronic - Assessment and Plan (Free Text) Plan: ventilatory support, Levophed , Primacor, Lasix, Micafungin, continue rest of treatment, f/u CXR Critical care time: 35 minutes
--- NOTE | 2018-03-23 14:13 | CP.PCM.PN ---
Subjective - Date & Time of Evaluation Date of Evaluation: 03/20/18 Time of Evaluation: 14:00 - Subjective Subjective: in [place] intubated on levophed Objective - Vital Signs/Intake and Output Vital Signs (last 24 hours): Temp Pulse Resp BP Pulse Ox 99.4 F 120 H 14 95/69 L 100 03/23/18 12:00 03/23/18 12:00 03/23/18 12:00 03/23/18 12:00 03/23/18 12:00 Intake and Output: 03/23/18 03/23/18 06:59 18:59 Intake Total 596 666 Output Total 2350 Balance -1754 666 - Medications Medications: Current Medications Acetaminophen (Tylenol 325mg Tab) 650 mg PO Q4 PRN PRN Reason: Pain, Mild (1-3) Albuterol/Ipratropium (Duoneb 3 Mg/0.5 Mg (3 Ml) Ud) 3 ml INH RQ6 EUGENIO Last Admin: 03/23/18 13:10 Dose: Not Given Bisacodyl (Dulcolax) 10 mg [place] DAILY PRN PRN Reason: No bowel movement x3days Furosemide (Lasix) 40 mg IVP Q12 [facility] Last Admin: 03/23/18 09:03 Dose: 40 mg Milrinone Lactate/Dextrose (Primacor 20mg/100ml D5w) 100 mls @ 10.614 mls/hr IV .Q9H26M EUGENIO; 0.375 MCG/KG/MIN PRN Reason: Protocol Last Admin: 03/23/18 11:55 Dose: 0.37 mcg/kg/min, 10.473 mls/hr Micafungin Sodium 100 mg/ (Sodium Chloride) 100 mls @ 100 mls/hr IVPB DAILY EUGENIO PRN Reason: Protocol Last Admin: 03/23/18 09:05 Dose: 100 mls/hr Norepinephrine Bitartrate 8 mg (/ Dextrose) 258 mls @ 24.18 mls/hr IV .[id number] ONE; 12.5 MCG/MIN PRN Reason: Protocol Stop: 03/23/18 19:46 Last Admin: 03/23/18 10:06 Dose: 12.5 mcg/min, 24.18 mls/hr Magnesium Hydroxide (Milk Of Magnesia) 30 ml PO HS PRN PRN Reason: No bowel movement x2 days Owijg-4-Pobv Ethyl Esters (Lovaza) 1 gm PO Q12 [facility] Last Admin: 03/23/18 09:04 Dose: 1 gm Oxymetazoline HCl (Nasal Decongestant 15 Ml) 1 spr NS Q12 PRN PRN Reason: Nasal congestion Last Admin: 03/16/18 16:47 Dose: 1 spr Pantoprazole Sodium (Protonix Inj) 40 mg IVP Q12 [facility] Last Admin: 03/23/18 09:05 Dose: 40 mg Tamsulosin HCl (Flomax) 0.4 mg PO QPM [facility] Last Admin: 03/22/18 17:43 Dose: Not Given - Labs Labs: 03/23/18 04:20 03/23/18 04:20 PT 16.9 Seconds (9.8-13.1) H 03/22/18 04:48 INR 1.5 03/22/18 04:48 APTT 37.5 Seconds (25.6-37.1) H 03/22/18 04:48 - Constitutional Appears: Toxic, Chronically Ill - Head Exam Head Exam: ATRAUMATIC, NORMAL INSPECTION, NORMOCEPHALIC - Eye Exam Eye Exam: Normal appearance, PERRL Pupil Exam: NORMAL ACCOMODATION, PERRL - ENT Exam ENT Exam: Mucous Membranes Moist, Normal Exam - Neck Exam Neck Exam: Full ROM, Normal Inspection. absent: Lymphadenopathy - Respiratory Exam Respiratory Exam: Decreased Breath Sounds, Rales, NORMAL BREATHING PATTERN - Cardiovascular Exam Cardiovascular Exam: REGULAR RHYTHM, +S1, +S2, Murmur - GI/Abdominal Exam GI & Abdominal Exam: Soft, Normal Bowel Sounds. absent: Tenderness - Extremities Exam Extremities Exam: Normal Capillary Refill, Normal Inspection, Pedal Edema. absent: Joint Swelling - Back Exam Back Exam: NORMAL INSPECTION - Neurological Exam Neurological Exam: Altered - Skin Skin Exam: Dry, Intact, Normal Color, Warm Assessment and Plan (1) CHF (congestive heart failure) Assessment & Plan: start on milrinone for inotropic support lasix levo Status: Chronic (2) Acute respiratory failure Status: Acute (3) Altered mental status Status: Acute (4) Jaundice Status: Acute (5) CAD (coronary artery disease) Status: Chronic (6) History of permanent cardiac pacemaker placement Status: Chronic (7) COPD exacerbation Status: Resolved
--- NOTE | 2018-03-23 14:15 | CP.PCM.PN ---
Subjective - Date & Time of Evaluation Date of Evaluation: 03/21/18 Time of Evaluation: 13:00 - Subjective Subjective: on milrione responsive intubated Objective - Vital Signs/Intake and Output Vital Signs (last 24 hours): Temp Pulse Resp BP Pulse Ox 99.4 F 120 H 14 95/69 L 100 03/23/18 12:00 03/23/18 12:00 03/23/18 12:00 03/23/18 12:00 03/23/18 12:00 Intake and Output: 03/23/18 03/23/18 06:59 18:59 Intake Total 596 666 Output Total 2350 Balance -1754 666 - Medications Medications: Current Medications Acetaminophen (Tylenol 325mg Tab) 650 mg PO Q4 PRN PRN Reason: Pain, Mild (1-3) Albuterol/Ipratropium (Duoneb 3 Mg/0.5 Mg (3 Ml) Ud) 3 ml INH RQ6 [facility] Last Admin: 03/23/18 13:10 Dose: Not Given Bisacodyl (Dulcolax) 10 mg [place] DAILY PRN PRN Reason: No bowel movement x3days Furosemide (Lasix) 40 mg IVP Q12 [facility] Last Admin: 03/23/18 09:03 Dose: 40 mg Milrinone Lactate/Dextrose (Primacor 20mg/100ml D5w) 100 mls @ 10.614 mls/hr IV .Q9H26M EUGENIO; 0.375 MCG/KG/MIN PRN Reason: Protocol Last Admin: 03/23/18 11:55 Dose: 0.37 mcg/kg/min, 10.473 mls/hr Micafungin Sodium 100 mg/ (Sodium Chloride) 100 mls @ 100 mls/hr IVPB DAILY EUGENIO PRN Reason: Protocol Last Admin: 03/23/18 09:05 Dose: 100 mls/hr Norepinephrine Bitartrate 8 mg (/ Dextrose) 258 mls @ 24.18 mls/hr IV .[id number] ONE; 12.5 MCG/MIN PRN Reason: Protocol Stop: 03/23/18 19:46 Last Admin: 03/23/18 10:06 Dose: 12.5 mcg/min, 24.18 mls/hr Magnesium Hydroxide (Milk Of Magnesia) 30 ml PO HS PRN PRN Reason: No bowel movement x2 days Lizkh-3-Djgg Ethyl Esters (Lovaza) 1 gm PO Q12 [facility] Last Admin: 03/23/18 09:04 Dose: 1 gm Oxymetazoline HCl (Nasal Decongestant 15 Ml) 1 spr NS Q12 PRN PRN Reason: Nasal congestion Last Admin: 03/16/18 16:47 Dose: 1 spr Pantoprazole Sodium (Protonix Inj) 40 mg IVP Q12 [facility] Last Admin: 03/23/18 09:05 Dose: 40 mg Tamsulosin HCl (Flomax) 0.4 mg PO QPM [facility] Last Admin: 03/22/18 17:43 Dose: Not Given - Labs Labs: 03/23/18 04:20 03/23/18 04:20 PT 16.9 Seconds (9.8-13.1) H 03/22/18 04:48 INR 1.5 03/22/18 04:48 APTT 37.5 Seconds (25.6-37.1) H 03/22/18 04:48 - Constitutional Appears: Well, Agitated - Head Exam Head Exam: ATRAUMATIC, NORMAL INSPECTION, NORMOCEPHALIC - Eye Exam Eye Exam: EOMI, Normal appearance, PERRL Pupil Exam: NORMAL ACCOMODATION, PERRL - ENT Exam ENT Exam: Mucous Membranes Moist, Normal Exam - Neck Exam Neck Exam: Full ROM, Normal Inspection. absent: Lymphadenopathy - Respiratory Exam Respiratory Exam: Rales, NORMAL BREATHING PATTERN - Cardiovascular Exam Cardiovascular Exam: REGULAR RHYTHM, +S1, +S2, Murmur - GI/Abdominal Exam GI & Abdominal Exam: Soft, Normal Bowel Sounds. absent: Tenderness - Extremities Exam Extremities Exam: Normal Capillary Refill, Normal Inspection. absent: Joint Swelling, Pedal Edema - Back Exam Back Exam: NORMAL INSPECTION - Neurological Exam Neurological Exam: Alert, Altered, Awake - Skin Skin Exam: Dry, Intact, Normal Color, Warm Assessment and Plan (1) CHF (congestive heart failure) Status: Chronic (2) Acute respiratory failure Status: Acute (3) Altered mental status Status: Acute (4) Jaundice Status: Acute (5) CAD (coronary artery disease) Status: Chronic (6) History of permanent cardiac pacemaker placement Status: Chronic (7) COPD exacerbation Status: Resolved
--- NOTE | 2018-03-23 14:17 | CP.PCM.PN ---
Subjective - Date & Time of Evaluation Date of Evaluation: 03/23/18 Time of Evaluation: 14:16 - Subjective Subjective: on levophed and milrinone Objective - Vital Signs/Intake and Output Vital Signs (last 24 hours): Temp Pulse Resp BP Pulse Ox 99.4 F 121 H 14 90/64 L 100 03/23/18 12:00 03/23/18 13:00 03/23/18 13:00 03/23/18 13:00 03/23/18 13:00 Intake and Output: 03/23/18 03/23/18 06:59 18:59 Intake Total 596 666 Output Total 2350 Balance -1754 666 - Medications Medications: Current Medications Acetaminophen (Tylenol 325mg Tab) 650 mg PO Q4 PRN PRN Reason: Pain, Mild (1-3) Albuterol/Ipratropium (Duoneb 3 Mg/0.5 Mg (3 Ml) Ud) 3 ml INH RQ6 [facility] Last Admin: 03/23/18 13:10 Dose: Not Given Bisacodyl (Dulcolax) 10 mg [place] DAILY PRN PRN Reason: No bowel movement x3days Furosemide (Lasix) 40 mg IVP Q12 [facility] Last Admin: 03/23/18 09:03 Dose: 40 mg Milrinone Lactate/Dextrose (Primacor 20mg/100ml D5w) 100 mls @ 10.614 mls/hr IV .Q9H26M [facility]; 0.375 MCG/KG/MIN PRN Reason: Protocol Last Titration: 03/23/18 14:04 Dose: 0.25 mcg/kg/min, 7.076 mls/hr Micafungin Sodium 100 mg/ (Sodium Chloride) 100 mls @ 100 mls/hr IVPB DAILY EU[facility] PRN Reason: Protocol Last Admin: 03/23/18 09:05 Dose: 100 mls/hr Norepinephrine Bitartrate 8 mg (/ Dextrose) 258 mls @ 24.18 mls/hr IV .[id number] ONE; 12.5 MCG/MIN PRN Reason: Protocol Stop: 03/23/18 19:46 Last Admin: 03/23/18 10:06 Dose: 12.5 mcg/min, 24.18 mls/hr Magnesium Hydroxide (Milk Of Magnesia) 30 ml PO HS PRN PRN Reason: No bowel movement x2 days Eyiot-0-Esoe Ethyl Esters (Lovaza) 1 gm PO Q12 [facility] Last Admin: 03/23/18 09:04 Dose: 1 gm Oxymetazoline HCl (Nasal Decongestant 15 Ml) 1 spr NS Q12 PRN PRN Reason: Nasal congestion Last Admin: 03/16/18 16:47 Dose: 1 spr Pantoprazole Sodium (Protonix Inj) 40 mg IVP Q12 [facility] Last Admin: 03/23/18 09:05 Dose: 40 mg Tamsulosin HCl (Flomax) 0.4 mg PO QPM [facility] Last Admin: 03/22/18 17:43 Dose: Not Given - Labs Labs: 03/23/18 04:20 03/23/18 04:20 PT 16.9 Seconds (9.8-13.1) H 03/22/18 04:48 INR 1.5 03/22/18 04:48 APTT 37.5 Seconds (25.6-37.1) H 03/22/18 04:48 - Constitutional Appears: In Acute Distress, Chronically Ill - Head Exam Head Exam: ATRAUMATIC, NORMAL INSPECTION, NORMOCEPHALIC - Eye Exam Eye Exam: EOMI, Normal appearance, PERRL Pupil Exam: NORMAL ACCOMODATION, PERRL - ENT Exam ENT Exam: Mucous Membranes Moist, Normal Exam - Neck Exam Neck Exam: Full ROM, Normal Inspection. absent: Lymphadenopathy - Respiratory Exam Respiratory Exam: Rales, NORMAL BREATHING PATTERN - Cardiovascular Exam Cardiovascular Exam: REGULAR RHYTHM, +S1, +S2, Murmur - GI/Abdominal Exam GI & Abdominal Exam: Soft, Normal Bowel Sounds. absent: Tenderness - Extremities Exam Extremities Exam: Full ROM, Normal Capillary Refill, Normal Inspection. absent : Joint Swelling, Pedal Edema - Back Exam Back Exam: NORMAL INSPECTION - Neurological Exam Neurological Exam: Altered - Skin Skin Exam: Dry, Intact, Normal Color, Warm Assessment and Plan (1) CHF (congestive heart failure) Assessment & Plan: wean milrinone to 0.25 cont levo cont lasix Status: Chronic (2) Acute respiratory failure Status: Acute (3) Altered mental status Status: Acute (4) Jaundice Status: Acute (5) CAD (coronary artery disease) Status: Chronic (6) History of permanent cardiac pacemaker placement Status: Chronic (7) COPD exacerbation Status: Resolved
--- NOTE | 2018-03-23 22:43 | PN ---
Copied To: David Garner MD Attending MD: David Garner MD DATE: 03/23/2018 CRITICAL CARE PROGRESS NOTE LOCATION: Patient in ICU, bed 431. TIME SPENT: 35 minutes. SUBJECTIVE: Patient is seen and evaluated at the bedside, status post reintubation, responds minimally to tactile stimuli. Overnight on milrinone drip, Levophed. On AC/PRVC; rate 12, tidal volume 500, FIO2 of 40%, pressure support of 5, observed rate 12, exhaled tidal volume 570, minute ventilation 6.1 L, saturating 100%, peak airway pressure 21, end-tidal CO2 of 25. PHYSICAL EXAMINATION GENERAL: No sedation. Appears comfortable on the ventilator. VITAL SIGNS: Temperature 99.4, heart rate 120, blood pressure of 95/69, mean arterial pressure 77, saturation 100%. Intake 2240, output of 4450, and negative balance 2236. Weight 203 pounds. HEAD, EYES, EARS, NOSE AND THROAT: Pupils 2-3 mm reactive. Corneal reflex present. Conjunctival reflex present. Endotracheal tube in place. No secretion noted. Responds to checking the endotracheal tube. CHEST: Bilateral breath sounds. Clear to auscultation anteriorly and laterally. HEART: Rhythm regular. S1, S2 normal. ABDOMEN: Bowel sounds present. Soft. EXTREMITIES: Mild edema of both forearms and hands. No signs of infection. Lower extremity with 1+ edema. DP palpable. NEUROLOGIC: Remains intubated. Responds to tactile stimuli. No responds to verbal commands. SKIN: Without rash. CURRENT MEDICATIONS: Include Flomax 0.4 mg p.o. daily, Protonix 40 IV every 12 hours, oxymetazoline nasal decongestant 1 spray every 12 hours, Lovaza 1 g every 12 hours, norepinephrine titrating to a systolic pressure 100, milrinone drip dose reduced to 0.215 mcg/kg/minute, micafungin 100 mg IV daily, milk of magnesia 30 mL at bedtime p.r.n., Lasix 40 IV every 12 hours, Dulcolax 10 mg per rectum daily, and DuoNeb 3 mL every 6 hours. LABORATORY DATA: WBC 5.4, hemoglobin 10.1, hematocrit 31.4, and platelet count 66. Coagulation; PT 16.9, INR 1.5, and PTT 837.5. ABG; pH 7.5, pCO2 of 51, pO2 of 126, saturation 99.9% on AC 12, 500, 40%, and PEEP of 5. SMA-7; sodium 136, potassium 3.2, chloride 90, CO2 of 39, blood urea nitrogen 14, creatinine 0.6, random glucose 136, calcium 7.6, total bilirubin 3.5, AST 37, ALT 54, and alkaline phosphatase 89. ProBNP 24,300. Total protein 6, albumin 3. Urinalysis; rbc's 15, wbc's less than 1. IMPRESSION AND PLAN: 1. Neurologic: Status post cerebrovascular accident in the past. 2. Cardiac: Congestive heart failure, status post implantable cardioverter defibrillator. On milrinone drip, dose being reduced. Continue Levophed to maintain systolic pressure 100. Continue diuretic. Discussed with Cardiology consult. 3. Pulmonary: Acute respiratory failure, status post reintubation on 03/21/2018. Chest x-ray shows reduced venous congestion and pleural effusion. Sputum culture and sensitivity showed fungus, on micafungin. No pneumothorax. 4. Gastrointestinal: Stable hemoglobin and hematocrit. No further bleeding noted on Protonix drip. Transaminase is trending down. CT of the abdomen and pelvis shows moderate abdomen and pelvic ascites. 5. Renal: Electrolyte abnormality. Hypokalemia supplemented. 6. Endocrine: Random sugar 136 to 183. 6. Hematology: Thrombocytopenia, stable. 7. Infectious disease: Sputum culture and sensitivity showed yeast species. Continue micafungin. Keep head of bed [address] Chen in place for intake and output. Continue mechanical ventilation, as patient is not clinically stable for spontaneous breathing trial. Milrinone and Levophed being adjusted. Not adequate mentation to protect airway. David Garner MD
[2018-03-24] MEDS: Milrinone 20mg/100ml D5W 100 ML IV SCH ×2 (00:57→16:14)
[2018-03-24] MEDS: Albuterol-Ipratrop 3 mg / 0.5 (3 ml) UD INH SCH ×4 (01:00→19:23)
[2018-03-24 05:18] LABS: ABG ALLEN TEST YES; ARTERIAL BLOOD GAS HCO3 37.3 mmol/L (21-28); ARTERIAL BLOOD GAS HEMOGLOBIN 10.4 g/dL (11.7-17.4); ARTERIAL BLOOD GAS O2 CAPACITY 14.5 mL/dL (16-24); ARTERIAL BLOOD GAS O2 CONTENT 14.5 ML/dL (15-23); ARTERIAL BLOOD GAS O2 SAT 100.2 % (95-98); ARTERIAL BLOOD GAS PCO2 47 mm/Hg (35-45); ARTERIAL BLOOD GAS PH 7.54 (7.35-7.45); ARTERIAL BLOOD GAS PO2 139 mm/Hg (80-100); ARTERIAL BLOOD GAS TCO2 41.6 mmol/L (22-28)
[2018-03-24 05:41] LABS: BASO % 0.6 % (0.0-2.0); EOS # 0.2 K/uL (0.0-0.7); EOS % 3.3 % (0.0-4.0); HEMOGLOBIN 10.4 g/dL (12.0-18.0); LYMPH # 1.4 K/uL (1.0-4.3); LYMPH % 26.1 % (20.0-40.0); MEAN CELL VOLUME 91.9 fl (80.0-94.0); MEAN CORPUSCULAR HEMOGLOBIN 30.6 pg (27.0-31.0); MEAN CORPUSCULAR HGB CONC 33.3 g/dL (33.0-37.0); MONO # 0.5 K/uL (0.0-0.8); NEUT # 3.1 K/uL (1.8-7.0); RBC 3.4 Mil/uL (4.40-5.90); RED CELL DISTRIBUTION WIDTH 20.4 % (11.5-14.5); WHITE BLOOD COUNT 5.2 K/uL (4.8-10.8)
[2018-03-24 05:57] LABS: ALBUMIN 3.2 g/dL (3.5-5.0); ALT/SGPT 39 U/L (21-72); AST/SGOT 35 U/L (17-59); BLOOD UREA NITROGEN 17 mg/dl (9-20); GFR AFRICAN-AMERICAN > 60; GFR NON-AFRICAN AMERICAN > 60
--- NOTE | 2018-03-24 08:01 | CP.CCUPN ---
CCU Subjective - Physician Review Events Since Last Encounter (Free Text): 03/24/18 08:01 The patient was Seen/interviewed and examined by me at the bedside during ICU round, Medical records reviewed and Management issues were discussed and formulated with the house staff. Events reviewed Critically ill, orally intubated and mechanically vented Hypotensive and evidence of fluid on physical exam. On levophed and milrinone This morning he was placed on CPAP trial with PS=10 and tolerating so far. Afebrile, NSR on the monitor, Tmx 100.5 CXR with persistent RLL infilterate , Scheduled for chest CT scan today NPO after midnight, possible Bronch in AM CCU Objective - Vital Signs / Intake & Output Vital Signs (Last 4 hours): Vital Signs Temp Pulse Resp BP Pulse Ox 03/24/18 07:00 120 H 12 94/57 L 100 03/24/18 06:00 116 H 12 91/54 L 100 03/24/18 05:00 120 H 12 99/63 L 100 03/24/18 04:00 100.5 F H 118 H 12 96/59 L 100 Intake and Output (Last 8hrs): Intake & Output 03/23/18 03/24/18 03/24/18 22:59 06:59 14:59 Intake Total 600 640 Output Total 1700 1500 Balance -1100 -860 Intake: IV 0 340 Intake, Piggyback 450 Tube Feeding 150 300 Output: Urine 1700 1500 Urethral (Chen) 1700 1500 Other: # Bowel Movements 0 - Physical Exam Head: Positive for: Atraumatic, Other (Jaundiced) Pupils: Positive for: PERRL Extroacular Muscles: Positive for: EOMI Conjunctiva: Positive for: Normal Mouth: Positive for: Other (Intubated) Pharnyx: Positive for: Normal. Negative for: ERYTHEMA Neck: Positive for: Normal Range of Motion, Trachea Midline. Negative for: Meningeal Signs, MIDLINE TENDERNESS, Paraspinal Tenderness, JVD, Lymphadenopathy , Bruit, Other Respiratory/Chest: Positive for: Rhonchi. Negative for: Clear to Auscultation, Good Air Exchange, Respiratory Distress, Accessory Muscle Use, Wheezes, Rales Cardiovascular: Positive for: Regular Rate and Rhythm, Normal S1, S2, Peripheal Pulses Present, Tachycardic Abdomen: Positive for: Normal Bowel Sounds. Negative for: Tenderness, Distention, Peritoneal Signs Upper Extremity: Positive for: Edema (Mild edema of B/L forearms and hands. No signs of infection) Lower Extremity: Positive for: Edema (1+ ) Neurological: Positive for: Other (Intubated, response to verbal and tactile stimulus) Skin: Positive for: Other Psychiatric: Positive for: Alert - Medications Active Medications: Active Medications Generic Name Dose Route Start Last Admin Trade Name Freq PRN Reason Stop Dose Admin Acetaminophen 650 mg 03/13/18 01:35 Tylenol 325mg Tab PO Q4 PRN Pain, Mild (1-3) Albuterol/Ipratropium 3 ml 03/13/18 02:00 03/24/18 07:41 Duoneb 3 Mg/0.5 Mg (3 Ml) Ud INH 3 ml RQ6 EUGENIO Administration Bisacodyl 10 mg 03/13/18 01:35 Dulcolax FL DAILY PRN No bowel movement x3days Furosemide 40 mg 03/21/18 09:00 03/23/18 20:28 Lasix IVP 40 mg Q12 EUGENIO Administration Milrinone Lactate/Dextrose 100 mls @ 10.614 mls/hr 03/19/18 16:30 03/24/18 00 :57 Primacor 20mg/100ml D5w IV 0.25 mcg/kg/min .Q9H26M EUGENIO 7.076 mls/hr Protocol Administration 0.375 MCG/KG/MIN Micafungin Sodium 100 mg/ 100 mls @ 100 mls/hr 03/21/18 14:00 03/23/18 09:05 Sodium Chloride IVPB 100 mls/hr DAILY EUGENIO Administration Protocol Norepinephrine Bitartrate 8 mg 258 mls @ 19.35 mls/hr 03/23/18 19:40 20:25 / Dextrose IV 03/24/18 08:59 10 mcg/min .[id number] ONE 19.35 mls/hr Protocol Administration 10 MCG/MIN Magnesium Hydroxide 30 ml 03/13/18 01:35 Milk Of Magnesia PO HS PRN No bowel movement x2 days [id number] Ethyl Esters 1 gm 03/13/18 09:00 03/23/18 20:23 Lovaza PO Not Given Q12 EUGENIO Oxymetazoline HCl 1 spr 03/16/18 16:36 03/16/18 16:47 Nasal Decongestant 15 Ml NS 1 spr Q12 PRN Administration Nasal congestion Pantoprazole Sodium 40 mg 03/18/18 21:00 03/23/18 20:28 Protonix Inj IVP 40 mg Q12 EUGENIO Administration Tamsulosin HCl 0.4 mg 03/13/18 18:00 03/23/18 17:16 Flomax PO Not Given QPM EUGENIO - Patient Studies Lab Studies: Lab Studies 03/24/18 03/24/18 03/24/18 Range/Units 05:00 05:00 04:57 WBC 5.2 (4.8-10.8) K/uL RBC 3.40 L (4.40-5.90) Mil/uL Hgb 10.4 L (12.0-18.0) g/dL Hct 31.2 L (35.0-51.0) % MCV 91.9 (80.0-94.0) fl MCH 30.6 (27.0-31.0) pg MCHC 33.3 (33.0-37.0) g/dL RDW 20.4 H (11.5-14.5) % Plt Count 94 L D (130-400) K/uL MPV 9.0 (7.2-11.7) fl Neut % (Auto) 60.0 (50.0-75.0) % Lymph % (Auto) 26.1 (20.0-40.0) % Amador % (Auto) 10.0 (0.0-10.0) % Eos % (Auto) 3.3 (0.0-4.0) % Baso % (Auto) 0.6 (0.0-2.0) % Neut # (Auto) 3.1 (1.8-7.0) K/uL Lymph # (Auto) 1.4 (1.0-4.3) K/uL Amador # (Auto) 0.5 (0.0-0.8) K/uL Eos # (Auto) 0.2 (0.0-0.7) K/uL Baso # (Auto) 0.0 (0.0-0.2) K/uL pCO2 47 H (35-45) mm/Hg pO2 139 H (80-100) mm/Hg HCO3 37.3 H (21-28) mmol/L ABG pH 7.54 H (7.35-7.45) ABG Total CO2 41.6 H (22-28) mmol/L ABG O2 Saturation 100.2 H (95-98) % ABG O2 Content 14.5 L (15-23) ML/dL ABG Base Excess 15.9 H (-2.0-3.0) mmol/L ABG Hemoglobin 10.4 L (11.7-17.4) g/dL ABG Carboxyhemoglobin 1.9 H (0.5-1.5) % POC ABG HHb (Measured) -0.2 L (0.0-5.0) % ABG Methemoglobin 1.1 (0.0-3.0) % ABG O2 Capacity 14.5 L (16-24) mL/dL Chris Test Yes A-a O2 Difference 87.0 mm/Hg Hgb O2 Saturation 97.2 (95.0-98.0) % Vent Mode Prvc ac Mechanical Rate 12 FiO2 40.0 % Tidal Volume 500 PEEP 5 Sodium 136 (132-148) mmol/l Potassium 3.5 L (3.6-5.0) MMOL/L Chloride 87 L (98-107) mmol/L Carbon Dioxide 39 H (22-30) mmol/L Anion Gap 14 (10-20) BUN 17 (9-20) mg/dl Creatinine 0.6 L (0.8-1.5) mg/dl Est GFR ( Amer) > 60 Est GFR (Non-Af Amer) > 60 Random Glucose 114 H (75-110) mg/dL Calcium 8.0 L (8.4-10.2) mg/dL Total Bilirubin 3.4 H (0.2-1.3) mg/dl AST 35 (17-59) U/L ALT 39 (21-72) U/L Alkaline Phosphatase 90 (38-126) U/L Total Protein 6.5 (6.3-8.2) G/DL Albumin 3.2 L (3.5-5.0) g/dL Globulin 3.3 (2.2-3.9) gm/dL Albumin/Globulin Ratio 1.0 (1.0-2.1) Laboratory Results - last 24 hr 03/24/18 03/24/18 03/24/18 04:57 05:00 05:00 WBC 5.2 RBC 3.40 L Hgb 10.4 L Hct 31.2 L MCV 91.9 MCH 30.6 MCHC 33.3 RDW 20.4 H Plt Count 94 L D MPV 9.0 Neut % (Auto) 60.0 Lymph % (Auto) 26.1 Amador % (Auto) 10.0 Eos % (Auto) 3.3 Baso % (Auto) 0.6 Neut # (Auto) 3.1 Lymph # (Auto) 1.4 Amador # (Auto) 0.5 Eos # (Auto) 0.2 Baso # (Auto) 0.0 pCO2 47 H pO2 139 H HCO3 37.3 H ABG pH 7.54 H ABG Total CO2 41.6 H ABG O2 Saturation 100.2 H ABG O2 Content 14.5 L ABG Base Excess 15.9 H ABG Hemoglobin 10.4 L ABG Carboxyhemoglobin 1.9 H POC ABG HHb (Measured) -0.2 L ABG Methemoglobin 1.1 ABG O2 Capacity 14.5 L Chris Test Yes A-a O2 Difference 87.0 Hgb O2 Saturation 97.2 Vent Mode Prvc ac Mechanical Rate 12 FiO2 40.0 Tidal Volume 500 PEEP 5 Sodium 136 Potassium 3.5 L Chloride 87 L Carbon Dioxide 39 H Anion Gap 14 BUN 17 Creatinine 0.6 L Est GFR ( Amer) > 60 Est GFR (Non-Af Amer) > 60 Random Glucose 114 H Calcium 8.0 L Total Bilirubin 3.4 H AST 35 ALT 39 Alkaline Phosphatase 90 Total Protein 6.5 Albumin 3.2 L Globulin 3.3 Albumin/Globulin Ratio 1.0 Fingerstick Blood Sugar Results: 88 Review of Systems - Review of Systems Systems not reviewed;Unavailable: Intubated - Constitutional Constitutional: absent: Fever, Chills, Sweats Critical Care Progress Note - Ventilator Checklist Head of Bed 30 Degrees: Yes Daily Sedation Vacation: Yes Daily Assessment of Readiness to Wean: Yes Daily Spontaneous Breathing Trial: Yes PUD Prophalyxis: Yes DVT Prophylaxis: Yes Oral Care with Chlorhexidine Gluconate {CHG}: Yes - Nutrition Nutrition: Nutrition Category Date Time Status NPO Diet [DIET] Diets 03/17/18 Lunch Active Assessment/Plan (1) Acute respiratory failure Current Visit: Yes Status: Acute Priority: High Comment: Acute respiratory failure with hypoxia secondary to HCAP, CHF and acute pulmonary edema Continue IV Micafungin Gentle Diuresis Strict I&O, negative fluid balance Aggressive pulmonary toilet, chest PT, suctioning Vent weaning in progress Daily CAT/SBT CXR with persistent RLL infilterate , Scheduled for chest CT scan today NPO after midnight, possible Bronch in AM (2) CHF (congestive heart failure) Current Visit: Yes Status: Acute Priority: High Comment: Continue levophed for BP support, wean as tolerated Continue milrinone follow up sVo2 Maintain MAP 65-75 (3) Hypotension Current Visit: Yes Status: Acute Priority: High Comment: Continue levophed for BP support, wean as tolerated Maintain MAP 65-75 Holding coreg (4) Jaundice Current Visit: Yes Status: Acute Priority: Medium Comment: Patient with hepatitis A & B LFT WNL, H/H Stable GI consulted, Endoscope when more stable or if bleeding worse (5) Altered mental status Current Visit: Yes Status: Acute Priority: High - Assessment and Plan (Free Text) Assessment: # Stress Ulcer prophylaxis with Protonix 40 mg IVP Q 12H # DVT prophylaxis with SCD, SQ Heparin # Code Status: Full code Total critical care time 40 minutes
--- NOTE | 2018-03-24 08:09 | RAD ---
Date of service: 03/24/2018 PROCEDURE: CHEST RADIOGRAPH, 1 VIEW HISTORY: pt intubated COMPARISON: Portable chest 03/23/2018. FINDINGS: Tracheostomy and nasogastric tubes do not appear significantly changed in position as well as right central venous line. AICD/permanent pacemaker reiterated. LUNGS: The current examination is performed essentially like an apical lordotic type capture. Persistent limited mid to inferior right sided airspace disease unchanged with improved aeration at the left base. Pulmonary vascular congestion remains and is not significantly improved. Trace right pleural effusions suspected. None is seen the left. No pneumothorax bilaterally. PLEURA: As above. CARDIOVASCULAR: Cardiomediastinal silhouette stable. OSSEOUS STRUCTURES: No significant abnormalities. VISUALIZED UPPER ABDOMEN: Normal. OTHER FINDINGS: None. IMPRESSION: Mild improvement in right basilar and mid lung zone airspace disease with CHF unchanged. Left basilar airspace disease improved. Trace right pleural effusion. All
[2018-03-24] MEDS: Omega-3-Acid Ethyl Esters 1 GM Cap PO SCH ×2 (08:21→21:18)
[2018-03-24] MEDS: Micafungin 100 MG in Sodium Chloride 0.9% 100 ML IVPB SCH (08:21)
--- NOTE | 2018-03-24 13:35 | CP.PCM.PN ---
Subjective - Date & Time of Evaluation Date of Evaluation: 03/24/18 Time of Evaluation: 10:00 - Subjective Subjective: F/U Respiratory Failure. open eyes verbal stimulation, follows simple commands Objective - Vital Signs/Intake and Output Vital Signs (last 24 hours): Temp Pulse Resp BP Pulse Ox 99.3 F 138 H 30 H 110/74 100 03/24/18 12:00 03/24/18 12:58 03/24/18 12:58 03/24/18 12:58 03/24/18 12:58 Intake and Output: 03/24/18 03/24/18 06:59 18:59 Intake Total 640 575 Output Total 1500 560 Balance -860 15 - Medications Medications: Current Medications Acetaminophen (Tylenol 325mg Tab) 650 mg PO Q4 PRN PRN Reason: Pain, Mild (1-3) Albuterol/Ipratropium (Duoneb 3 Mg/0.5 Mg (3 Ml) Ud) 3 ml INH RQ6 EUGENIO Last Admin: 03/24/18 13:33 Dose: 3 ml Bisacodyl (Dulcolax) 10 mg MS DAILY PRN PRN Reason: No bowel movement x3days Furosemide (Lasix) 40 mg IVP Q12 EUGENIO Last Admin: 03/24/18 08:20 Dose: 40 mg Milrinone Lactate/Dextrose (Primacor 20mg/100ml D5w) 100 mls @ 10.614 mls/hr IV .Q9H26M EUGENIO; 0.375 MCG/KG/MIN PRN Reason: Protocol Last Admin: 03/24/18 00:57 Dose: 0.25 mcg/kg/min, 7.076 mls/hr Micafungin Sodium 100 mg/ (Sodium Chloride) 100 mls @ 100 mls/hr IVPB DAILY EUGENIO PRN Reason: Protocol Last Admin: 03/24/18 08:21 Dose: 100 mls/hr Norepinephrine Bitartrate 8 mg (/ Dextrose) 258 mls @ 14.51 mls/hr IV .[id number] ONE; 7.5 MCG/MIN PRN Reason: Protocol Stop: 03/25/18 05:50 Last Admin: 03/24/18 12:55 Dose: 7.5 mcg/min, 14.51 mls/hr Magnesium Hydroxide (Milk Of Magnesia) 30 ml PO HS PRN PRN Reason: No bowel movement x2 days [id number] Ethyl Esters (Lovaza) 1 gm PO Q12 [facility] Last Admin: 03/24/18 08:21 Dose: Not Given Oxymetazoline HCl (Nasal Decongestant 15 Ml) 1 spr NS Q12 PRN PRN Reason: Nasal congestion Last Admin: 03/16/18 16:47 Dose: 1 spr Pantoprazole Sodium (Protonix Inj) 40 mg IVP Q12 [facility] Last Admin: 03/24/18 08:22 Dose: 40 mg Tamsulosin HCl (Flomax) 0.4 mg PO QPM [facility] Last Admin: 03/23/18 17:16 Dose: Not Given - Labs Labs: 03/24/18 05:00 03/24/18 05:00 PT 16.9 Seconds (9.8-13.1) H 03/22/18 04:48 INR 1.5 03/22/18 04:48 APTT 37.5 Seconds (25.6-37.1) H 03/22/18 04:48 - Constitutional Appears: Chronically Ill - Head Exam Head Exam: NORMAL INSPECTION - Eye Exam Eye Exam: PERRL - ENT Exam Additional comments: Intubated - Neck Exam Neck Exam: Normal Inspection - Respiratory Exam Respiratory Exam: Decreased Breath Sounds (at bases), Rhonchi (scattered) - Cardiovascular Exam Cardiovascular Exam: Tachycardia Additional comments: PPM - GI/Abdominal Exam GI & Abdominal Exam: Soft, Normal Bowel Sounds - Exam Additional comments: Chen cath in place - Extremities Exam Additional comments: 2+ edema R arms and b/l hands - Neurological Exam Neurological Exam: Awake Additional comments: Intubated, open eyes to verbal stimuli,follows simple commands, generalized weakness. - Psychiatric Exam Additional comments: Unable to assess - Skin Skin Exam: Warm Additional comments: Jaundice Assessment and Plan (1) Acute respiratory failure Status: Acute (2) CHF (congestive heart failure) Status: Chronic (3) CAD (coronary artery disease) Status: Chronic (4) Jaundice Status: Acute (5) COPD (chronic obstructive pulmonary disease) Status: Acute (6) AICD (automatic cardioverter/defibrillator) present Status: Chronic (7) Altered mental status Status: Acute (8) Generalized weakness Status: Chronic (9) Difficulty with speech Status: Chronic (10) Anxiety Status: Chronic - Assessment and Plan (Free Text) Plan: Primacor , Levophed , Micafungin , Lasix, unable to wean, discussed with [employer] Helper , CT Chest to aw[facility] g[facility] swartz Critical care time: 35 minutes
--- NOTE | 2018-03-24 15:27 | CT ---
Date of service: 03/24/2018 PROCEDURE: CT Chest without contrast HISTORY: Pneumonia COMPARISON: None available. TECHNIQUE: Contiguous axial images were obtained through the chest without intravenous contrast enhancement. Sagittal and coronal reconstructions were performed. Radiation dose (DLP): 644.42 mGy-cm. This CT exam was performed using one or more of the following dose reduction techniques: Automated exposure control, adjustment of the mA and/or kV according to patient size, and/or use of iterative reconstruction technique. FINDINGS: LUNGS: Compressive atelectasis primarily affecting both lower lobes. MEDIASTINUM: Unremarkable thoracic aorta. No aneurysm. Cardiomegaly. Pulmonary vascular congestion. Main pulmonary artery unremarkable. No vascular congestion. No lymphadenopathy. PLEURA: Bilateral approximately symmetrical pleural effusions categorized as moderate -large. BONES: No fracture. No destructive lesion. UPPER ABDOMEN: Grossly unremarkable. OTHER FINDINGS: Satisfactory position of support apparatus including nasogastric tube and endotracheal tube. Venous access catheter also in good position. IMPRESSION: Bilateral pleural effusions resulting in compressive atelectasis bilaterally. Otherwise no discrete pulmonary findings. Satisfactory position ventilatory, vascular and nasogastric apparatus.
--- NOTE | 2018-03-24 17:56 | CP.PCM.PN ---
Subjective - Date & Time of Evaluation Date of Evaluation: 03/24/18 Time of Evaluation: 17:53 - Subjective Subjective: BNP elevated CT chest shows florid pulmonary edema and effusions On levophed and milrinone Objective - Vital Signs/Intake and Output Vital Signs (last 24 hours): Temp Pulse Resp BP Pulse Ox 99.1 F 120 H 12 81/54 L 100 03/24/18 15:58 03/24/18 17:00 03/24/18 17:00 03/24/18 17:00 03/24/18 17:00 Intake and Output: 03/24/18 03/24/18 06:59 18:59 Intake Total 640 1075 Output Total 1500 900 Balance -860 175 - Medications Medications: Current Medications Acetaminophen (Tylenol 325mg Tab) 650 mg PO Q4 PRN PRN Reason: Pain, Mild (1-3) Albuterol/Ipratropium (Duoneb 3 Mg/0.5 Mg (3 Ml) Ud) 3 ml INH RQ6 EUGENIO Last Admin: 03/24/18 13:33 Dose: 3 ml Bisacodyl (Dulcolax) 10 mg ID DAILY PRN PRN Reason: No bowel movement x3days Furosemide (Lasix) 40 mg IVP Q12 EUGENIO Last Admin: 03/24/18 08:20 Dose: 40 mg Heparin Sodium (Porcine) (Heparin) 5,000 units SC Q8 EUGENIO PRN Reason: Protocol Milrinone Lactate/Dextrose (Primacor 20mg/100ml D5w) 100 mls @ 10.614 mls/hr IV .Q9H26M EUGENIO; 0.375 MCG/KG/MIN PRN Reason: Protocol Last Admin: 03/24/18 16:14 Dose: 0.25 mcg/kg/min, 7.076 mls/hr Norepinephrine Bitartrate 8 mg (/ Dextrose) 258 mls @ 14.51 mls/hr IV .[id number] ONE; 7.5 MCG/MIN PRN Reason: Protocol Stop: 03/25/18 05:50 Last Titration: 03/24/18 17:16 Dose: 12.5 mcg/min, 24.18 mls/hr Magnesium Hydroxide (Milk Of Magnesia) 30 ml PO HS PRN PRN Reason: No bowel movement x2 days [id number] Ethyl Esters (Lovaza) 1 gm PO Q12 [facility] Last Admin: 03/24/18 08:21 Dose: Not Given Oxymetazoline HCl (Nasal Decongestant 15 Ml) 1 spr NS Q12 PRN PRN Reason: Nasal congestion Last Admin: 03/16/18 16:47 Dose: 1 spr Pantoprazole Sodium (Protonix Inj) 40 mg IVP Q12 [facility] Last Admin: 03/24/18 08:22 Dose: 40 mg Tamsulosin HCl (Flomax) 0.4 mg PO QPM [facility] Last Admin: 03/23/18 17:16 Dose: Not Given - Labs Labs: 03/24/18 05:00 03/24/18 05:00 PT 16.9 Seconds (9.8-13.1) H 03/22/18 04:48 INR 1.5 03/22/18 04:48 APTT 37.5 Seconds (25.6-37.1) H 03/22/18 04:48 - Constitutional Appears: Toxic, In Acute Distress - Head Exam Head Exam: ATRAUMATIC, NORMAL INSPECTION, NORMOCEPHALIC - Eye Exam Eye Exam: EOMI, Normal appearance, PERRL Pupil Exam: NORMAL ACCOMODATION, PERRL - ENT Exam ENT Exam: Mucous Membranes Moist, Normal Exam - Neck Exam Neck Exam: Full ROM, Normal Inspection. absent: Lymphadenopathy - Respiratory Exam Respiratory Exam: Rales, NORMAL BREATHING PATTERN - Cardiovascular Exam Cardiovascular Exam: REGULAR RHYTHM, +S1, +S2, Murmur - GI/Abdominal Exam GI & Abdominal Exam: Soft, Normal Bowel Sounds. absent: Tenderness - Extremities Exam Extremities Exam: Full ROM, Normal Capillary Refill, Normal Inspection. absent : Joint Swelling, Pedal Edema - Neurological Exam Neurological Exam: Altered - Psychiatric Exam Psychiatric exam: Normal Affect, Normal Mood - Skin Skin Exam: Dry, Intact, Normal Color, Warm Assessment and Plan (1) CHF (congestive heart failure) Assessment & Plan: cont with lasix cont milrinone and levophed Status: Chronic (2) Acute respiratory failure Status: Acute (3) Altered mental status Status: Acute (4) Jaundice Status: Acute (5) CAD (coronary artery disease) Status: Chronic (6) History of permanent cardiac pacemaker placement Status: Chronic (7) COPD exacerbation Status: Resolved
[2018-03-24] MEDS ORDERED: Digoxin 500 mcg/2ml (0.5 mg/2ml) Inj IVP ONE (19:47)
[2018-03-24 20:40] VITALS: PULSE 121
[2018-03-24] MEDS ORDERED: Sodium Chloride 3% for Inhalation 4 ML VIAL.NEB IH PRN (21:15)
[2018-03-24 21:54] LABS: URINE BACTERIA RARE (<OCC); URINE BILIRUBIN SMALL (NEGATIVE); URINE BLOOD NEGATIVE (NEGATIVE); URINE CLARITY SLIGHTY-CLOUDY (Clear); URINE COLOR AMBER (YELLOW); URINE GLUCOSE (UA) NEG (Normal); URINE HYALINE CAST 0-2 /hpf (0-2); URINE LEUKOCYTE ESTERASE NEG Leu/uL (Negative); URINE PROTEIN 100 mg/dL (NEGATIVE)
[2018-03-25] MEDS: Albuterol-Ipratrop 3 mg / 0.5 (3 ml) UD INH SCH ×2 (01:52→07:49)
[2018-03-25 04:14] LABS: ABG ALLEN TEST YES; ARTERIAL BLOOD GAS HCO3 35.9 mmol/L (21-28); ARTERIAL BLOOD GAS HEMOGLOBIN 10.5 g/dL (11.7-17.4); ARTERIAL BLOOD GAS O2 CAPACITY 14.5 mL/dL (16-24); ARTERIAL BLOOD GAS O2 CONTENT 14.5 ML/dL (15-23); ARTERIAL BLOOD GAS O2 SAT 99.7 % (95-98); ARTERIAL BLOOD GAS PCO2 46 mm/Hg (35-45); ARTERIAL BLOOD GAS PH 7.53 (7.35-7.45); ARTERIAL BLOOD GAS PO2 138 mm/Hg (80-100); ARTERIAL BLOOD GAS TCO2 39.8 mmol/L (22-28)
[2018-03-25 05:44] LABS: HEMOGLOBIN 10.1 g/dL (12.0-18.0); MEAN CELL VOLUME 91.8 fl (80.0-94.0); MEAN CORPUSCULAR HEMOGLOBIN 30.7 pg (27.0-31.0); MEAN CORPUSCULAR HGB CONC 33.4 g/dL (33.0-37.0); RBC 3.3 Mil/uL (4.40-5.90); WHITE BLOOD COUNT 4.7 K/uL (4.8-10.8)
[2018-03-25 06:00] LABS: INR 1.4; PROTHROMBIN TIME 16.1 Seconds (9.8-13.1)
[2018-03-25 06:01] LABS: ALT/SGPT 39 U/L (21-72); AST/SGOT 34 U/L (17-59); BLOOD UREA NITROGEN 17 mg/dl (9-20); GFR AFRICAN-AMERICAN > 60; GFR NON-AFRICAN AMERICAN > 60
[2018-03-25 06:03] LABS: PARTIAL THROMBOPLASTIN TIME 33.3 Seconds (25.6-37.1)
[2018-03-25] MEDS: Omega-3-Acid Ethyl Esters 1 GM Cap PO SCH ×2 (08:28→20:06)
--- NOTE | 2018-03-25 08:57 | CP.PCM.PN ---
Subjective - Date & Time of Evaluation Date of Evaluation: 03/25/18 Time of Evaluation: 20:00 - Subjective Subjective: Awake and responsive to commands Objective - Vital Signs/Intake and Output Vital Signs (last 24 hours): Temp Pulse Resp BP Pulse Ox 98.5 F 112 H 12 117/75 100 03/25/18 08:00 03/25/18 08:00 03/25/18 08:00 03/25/18 08:00 03/25/18 08:00 Intake and Output: 03/25/18 03/25/18 06:59 18:59 Intake Total 1352 Output Total 600 100 Balance 752 -100 - Medications Medications: Current Medications Acetaminophen (Tylenol 325mg Tab) 650 mg PO Q4 PRN PRN Reason: Pain, Mild (1-3) Last Admin: 03/24/18 21:00 Dose: 650 mg Albuterol/Ipratropium (Duoneb 3 Mg/0.5 Mg (3 Ml) Ud) 3 ml INH RQ6 EUGENIO Last Admin: 03/25/18 07:49 Dose: 3 ml Bisacodyl (Dulcolax) 10 mg ID DAILY PRN PRN Reason: No bowel movement x3days Furosemide (Lasix) 40 mg IVP Q12 [facility]GEN[facility] Last Admin: 03/24/18 08:20 Dose: 40 mg Heparin Sodium (Porcine) (Heparin) 5,000 units SC Q12 EUGENIO PRN Reason: Protocol Last Admin: 03/25/18 08:27 Dose: 5,000 units Milrinone Lactate/Dextrose (Primacor 20mg/100ml D5w) 100 mls @ 10.614 mls/hr IV .Q9H26M EUGENIO; 0.375 MCG/KG/MIN PRN Reason: Protocol Last Admin: 03/24/18 16:14 Dose: 0.25 mcg/kg/min, 7.076 mls/hr Magnesium Hydroxide (Milk Of Magnesia) 30 ml PO HS PRN PRN Reason: No bowel movement x2 days [id number] Ethyl Esters (Lovaza) 1 gm PO Q12 EUGENIO Last Admin: 03/25/18 08:28 Dose: Not Given Oxymetazoline HCl (Nasal Decongestant 15 Ml) 1 spr NS Q12 PRN PRN Reason: Nasal congestion Last Admin: 03/16/18 16:47 Dose: 1 spr Pantoprazole Sodium (Protonix Inj) 40 mg IVP Q12 [facility] Last Admin: 03/25/18 08:28 Dose: 40 mg Tamsulosin HCl (Flomax) 0.4 mg PO QPM [facility] Last Admin: 03/23/18 17:16 Dose: Not Given - Labs Labs: 03/25/18 05:00 03/25/18 05:00 PT 16.1 Seconds (9.8-13.1) H 03/25/18 05:00 INR 1.4 03/25/18 05:00 APTT 33.3 Seconds (25.6-37.1) 03/25/18 05:00 - Constitutional Appears: Well - Head Exam Head Exam: ATRAUMATIC, NORMAL INSPECTION, NORMOCEPHALIC - Eye Exam Eye Exam: EOMI, Normal appearance, PERRL Pupil Exam: NORMAL ACCOMODATION, PERRL - ENT Exam ENT Exam: Mucous Membranes Moist, Normal Exam - Neck Exam Neck Exam: Full ROM, Normal Inspection. absent: Lymphadenopathy - Respiratory Exam Respiratory Exam: Decreased Breath Sounds, Rales, NORMAL BREATHING PATTERN - Cardiovascular Exam Cardiovascular Exam: REGULAR RHYTHM, +S1, +S2, Murmur - GI/Abdominal Exam GI & Abdominal Exam: Soft, Normal Bowel Sounds. absent: Tenderness - Extremities Exam Extremities Exam: Full ROM, Normal Inspection. absent: Joint Swelling, Pedal Edema - Neurological Exam Neurological Exam: Awake Additional comments: MARTINEZ - Psychiatric Exam Psychiatric exam: Normal Affect, Normal Mood - Skin Skin Exam: Dry, Intact, Normal Color, Warm Assessment and Plan (1) CHF (congestive heart failure) Assessment & Plan: cont levophed wean off milrinone x 48 hours cont lasix Status: Chronic (2) Acute respiratory failure Assessment & Plan: vent support Status: Acute (3) Altered mental status Status: Acute (4) Jaundice Status: Acute (5) CAD (coronary artery disease) Assessment & Plan: known moderate CAD Status: Chronic (6) History of permanent cardiac pacemaker placement Status: Deleted (7) COPD exacerbation Status: Resolved
--- NOTE | 2018-03-25 10:14 | RAD ---
Date of service: 03/25/2018 HISTORY: Reevaluate Intubated COMPARISON: 03/24/2028. FINDINGS: Endotracheal tube is stable in position terminating 2 cm proximal to the kailee. The nasogastric tube terminates in the stomach. The right IJV line terminates in the right atrium. LUNGS: The lungs are clear. PLEURA: Moderate pleural effusions, interval worsening on the left. No pneumothorax apparent. CARDIOVASCULAR: Normal. The heart is normal in size. There is stable position of left-sided permanent pacing device. OSSEOUS STRUCTURES: No significant abnormalities. VISUALIZED UPPER ABDOMEN: Normal. OTHER FINDINGS: None. IMPRESSION: Stable position of endotracheal tube and right IJV line as well as nasogastric tube. Moderate pleural effusions, interval worsening on the left.
--- NOTE | 2018-03-25 11:39 | CP.PCM.PN ---
Subjective - Date & Time of Evaluation Date of Evaluation: 03/25/18 Time of Evaluation: 11:20 - Subjective Subjective: F/U Respiratory failure. Awake, follows commands Objective - Vital Signs/Intake and Output Vital Signs (last 24 hours): Temp Pulse Resp BP Pulse Ox 98.5 F 115 H 17 109/66 100 03/25/18 08:00 03/25/18 11:00 03/25/18 11:00 03/25/18 11:00 03/25/18 11:00 Intake and Output: 03/25/18 03/25/18 06:59 18:59 Intake Total 1352 Output Total 600 175 Balance 752 -175 - Medications Medications: Current Medications Acetaminophen (Tylenol 325mg Tab) 650 mg PO Q4 PRN PRN Reason: Pain, Mild (1-3) Last Admin: 03/24/18 21:00 Dose: 650 mg Albuterol/Ipratropium (Duoneb 3 Mg/0.5 Mg (3 Ml) Ud) 3 ml INH RQ6 EUGENIO Last Admin: 03/25/18 07:49 Dose: 3 ml Bisacodyl (Dulcolax) 10 mg SC DAILY PRN PRN Reason: No bowel movement x3days Furosemide (Lasix) 40 mg IVP Q12 [facility] Last Admin: 03/24/18 08:20 Dose: 40 mg Heparin Sodium (Porcine) (Heparin) 5,000 units SC Q12 EUGENIO PRN Reason: Protocol Last Admin: 03/25/18 08:27 Dose: 5,000 units Milrinone Lactate/Dextrose (Primacor 20mg/100ml D5w) 100 mls @ 10.614 mls/hr IV .Q9H26M EUGENIO; 0.375 MCG/KG/MIN PRN Reason: Protocol Last Admin: 03/24/18 16:14 Dose: 0.25 mcg/kg/min, 7.076 mls/hr Magnesium Hydroxide (Milk Of Magnesia) 30 ml PO HS PRN PRN Reason: No bowel movement x2 days [id number] Ethyl Esters (Lovaza) 1 gm PO Q12 [facility] Last Admin: 03/25/18 08:28 Dose: Not Given Oxymetazoline HCl (Nasal Decongestant 15 Ml) 1 spr NS Q12 PRN PRN Reason: Nasal congestion Last Admin: 03/16/18 16:47 Dose: 1 spr Pantoprazole Sodium (Protonix Inj) 40 mg IVP Q12 [facility] Last Admin: 03/25/18 08:28 Dose: 40 mg Tamsulosin HCl (Flomax) 0.4 mg PO QPM [facility] Last Admin: 03/23/18 17:16 Dose: Not Given - Labs Labs: 03/25/18 05:00 03/25/18 05:00 PT 16.1 Seconds (9.8-13.1) H 03/25/18 05:00 INR 1.4 03/25/18 05:00 APTT 33.3 Seconds (25.6-37.1) 03/25/18 05:00 - Constitutional Appears: Chronically Ill - Head Exam Head Exam: NORMAL INSPECTION - Eye Exam Eye Exam: PERRL - ENT Exam Additional comments: Intubated - Respiratory Exam Respiratory Exam: Decreased Breath Sounds (at bases), Rhonchi Additional comments: Edema upper extremities. - Cardiovascular Exam Cardiovascular Exam: REGULAR RHYTHM - GI/Abdominal Exam GI & Abdominal Exam: Soft, Normal Bowel Sounds - Extremities Exam Additional comments: Edema upper extremities, R-L TKR - Neurological Exam Neurological Exam: Awake Additional comments: Intubated, follows simple commands, generalized weakness. - Skin Skin Exam: Warm Additional comments: Jaundice. Assessment and Plan (1) Acute respiratory failure Status: Acute (2) CHF (congestive heart failure) Status: Chronic (3) CAD (coronary artery disease) Status: Chronic (4) Jaundice Status: Acute (5) COPD (chronic obstructive pulmonary disease) Status: Acute (6) AICD (automatic cardioverter/defibrillator) present Status: Chronic (7) Altered mental status Status: Acute (8) Generalized weakness Status: Chronic (9) Difficulty with speech Status: Chronic (10) Anxiety Status: Chronic - Assessment and Plan (Free Text) Plan: CT Chest reviewed, b/l effusion with lung atelectasis, IR consult for thoracentesis, continue current Tx. Critical care time: 40 minutes
[2018-03-25] MEDS ORDERED: Lidocaine Hydrochloride 5 ML INJ ONE (13:33)
--- NOTE | 2018-03-25 13:54 | CP.CCUPN ---
<[place] - Last Filed: 03/25/18 16:01> CCU Subjective - Physician Review Subjective (Free Text): 03/25/18 14:50 Patient seen and examined at bedside during rounds today. Overnight events reviewed. Pt had low grade temperature last night (T 100.7 F) and huertas cultures were done. Pt is s/p intubated and mechanically vented. pt is alert and responds to verbal and tactile stimulus. Pt is currently on levophed and milrinone for hypotension. SBP >100 w/ MAP >65. OG tube feeding resumed this morning. CCU Objective - Vital Signs / Intake & Output Vital Signs (Last 4 hours): Vital Signs Temp Pulse Resp BP Pulse Ox 03/25/18 13:00 115 H 12 103/53 L 100 03/25/18 12:00 98.9 F 117 H 12 106/64 100 03/25/18 11:55 103/64 03/25/18 11:00 115 H 17 109/66 100 03/25/18 10:00 111 H 12 105/64 100 Intake and Output (Last 8hrs): Intake & Output 03/24/18 03/25/18 03/25/18 22:59 06:59 14:59 Intake Total 920 832 Output Total 575 400 250 Balance 345 432 -250 Weight 88.904 kg Intake: IV 220 382 Tube Feeding 600 450 Free Water Flush 100 Output: Urine 575 400 250 Urethral (Chen) 575 400 250 - Physical Exam Head: Positive for: Atraumatic, Other (Jaundiced) Pupils: Positive for: PERRL Extroacular Muscles: Positive for: EOMI Conjunctiva: Positive for: Normal Mouth: Positive for: Other (Intubated) Pharnyx: Positive for: Normal. Negative for: ERYTHEMA Neck: Positive for: Normal Range of Motion, Trachea Midline. Negative for: Meningeal Signs, MIDLINE TENDERNESS, Paraspinal Tenderness, JVD, Lymphadenopathy , Bruit, Other Respiratory/Chest: Positive for: Rhonchi. Negative for: Clear to Auscultation, Good Air Exchange, Respiratory Distress, Accessory Muscle Use, Wheezes, Rales Cardiovascular: Positive for: Regular Rate and Rhythm, Normal S1, S2, Peripheal Pulses Present, Tachycardic Abdomen: Positive for: Normal Bowel Sounds. Negative for: Tenderness, Distention, Peritoneal Signs Upper Extremity: Positive for: Edema (Mild edema of B/L forearms and hands. No signs of infection) Lower Extremity: Negative for: Edema Neurological: Positive for: Other (Intubated, response to verbal and tactile stimulus) Skin: Positive for: Other Psychiatric: Positive for: Alert - Medications Active Medications: Active Medications Generic Name Dose Route Start Last Admin Trade Name Freq PRN Reason Stop Dose Admin Acetaminophen 650 mg 03/13/18 01:35 03/24/18 21:00 Tylenol 325mg Tab PO 650 mg Q4 PRN Administration Pain, Mild (1-3) Bisacodyl 10 mg 03/13/18 01:35 Dulcolax MO DAILY PRN No bowel movement x3days Furosemide 40 mg 03/21/18 09:00 03/25/18 11:55 Lasix IVP 40 mg Q12 EUGENIO Administration Heparin Sodium (Porcine) 5,000 units 03/25/18 09:00 03/25/18 08:27 Heparin SC 5,000 units Q12 EUGENIO Administration Protocol Milrinone Lactate/Dextrose 100 mls @ 10.614 mls/hr 03/19/18 16:30 03/24/18 16 :14 Primacor 20mg/100ml D5w IV 0.25 mcg/kg/min .Q9H26M EUGENIO 7.076 mls/hr Protocol Administration 0.375 MCG/KG/MIN Potassium Chloride 100 mls @ 50 mls/hr 03/25/18 14:00 Potassium Chloride 20 Meq/100 Ml IVPB 03/25/18 19:59 Q2 EUGENIO Magnesium Hydroxide 30 ml 03/13/18 01:35 Milk Of Magnesia PO HS PRN No bowel movement x2 days Slxdd-[id number] Ethyl Esters 1 gm 03/13/18 09:00 03/25/18 08:28 Lovaza PO Not Given Q12 EUGENIO Oxymetazoline HCl 1 spr 03/16/18 16:36 03/16/18 16:47 Nasal Decongestant 15 Ml NS 1 spr Q12 PRN Administration Nasal congestion Pantoprazole Sodium 40 mg 03/18/18 21:00 03/25/18 08:28 Protonix Inj IVP 40 mg Q12 EUGENIO Administration Tamsulosin HCl 0.4 mg 03/13/18 18:00 03/23/18 17:16 Flomax PO Not Given QPM EUGENIO - Patient Studies Lab Studies: Lab Studies 03/25/18 03/25/18 03/25/18 Range/Units 05:00 05:00 05:00 WBC 4.7 L (4.8-10.8) K/uL RBC 3.30 L (4.40-5.90) Mil/uL Hgb 10.1 L (12.0-18.0) g/dL Hct 30.3 L (35.0-51.0) % MCV 91.8 (80.0-94.0) fl MCH 30.7 (27.0-31.0) pg MCHC 33.4 (33.0-37.0) g/dL RDW 19.0 H (11.5-14.5) % Plt Count 109 L (130-400) K/uL PT 16.1 H (9.8-13.1) Seconds INR 1.4 APTT 33.3 (25.6-37.1) Seconds pCO2 (35-45) mm/Hg pO2 (80-100) mm/Hg HCO3 (21-28) mmol/L ABG pH (7.35-7.45) ABG Total CO2 (22-28) mmol/L ABG O2 Saturation (95-98) % ABG O2 Content (15-23) ML/dL ABG Base Excess (-2.0-3.0) mmol/L ABG Hemoglobin (11.7-17.4) g/dL ABG Carboxyhemoglobin (0.5-1.5) % POC ABG HHb (Measured) (0.0-5.0) % ABG Methemoglobin (0.0-3.0) % ABG O2 Capacity (16-24) mL/dL Chris Test A-a O2 Difference mm/Hg Hgb O2 Saturation (95.0-98.0) % Vent Mode Mechanical Rate FiO2 % Tidal Volume PEEP Sodium 132 (132-148) mmol/l Potassium 3.3 L (3.6-5.0) MMOL/L Chloride 86 L (98-107) mmol/L Carbon Dioxide 39 H (22-30) mmol/L Anion Gap 10 (10-20) BUN 17 (9-20) mg/dl Creatinine 0.5 L (0.8-1.5) mg/dl Est GFR ( Amer) > 60 Est GFR (Non-Af Amer) > 60 Random Glucose 105 (75-110) mg/dL Calcium 8.0 L (8.4-10.2) mg/dL Total Bilirubin 3.5 H (0.2-1.3) mg/dl AST 34 (17-59) U/L ALT 39 (21-72) U/L Alkaline Phosphatase 83 (38-126) U/L Total Protein 6.0 L (6.3-8.2) G/DL Albumin 3.0 L (3.5-5.0) g/dL Globulin 3.0 (2.2-3.9) gm/dL Albumin/Globulin Ratio 1.0 (1.0-2.1) Urine Color (YELLOW) Urine Clarity (Clear) Urine pH (5.0-8.0) Ur Specific [place] (1.003-1.030) Urine Protein (NEGATIVE) mg/dL Urine Glucose (UA) (Normal) mg/dL Urine Ketones (NEGATIVE) mg/dL Urine Blood (NEGATIVE) Urine Nitrate (NEGATIVE) Urine Bilirubin (NEGATIVE) Urine Urobilinogen (0.2-1.0) mg/dL Ur Leukocyte Esterase (Negative) Rk/uL Urine RBC (Auto) (0-3) /hpf Urine Microscopic WBC (0-5) /hpf Urine Bacteria (<OCC) Hyaline Casts (0-2) /hpf 03/25/18 03/24/18 Range/Units 03:57 21:30 WBC (4.8-10.8) K/uL RBC (4.40-5.90) Mil/uL Hgb (12.0-18.0) g/dL Hct (35.0-51.0) % MCV (80.0-94.0) fl MCH (27.0-31.0) pg MCHC (33.0-37.0) g/dL RDW (11.5-14.5) % Plt Count (130-400) K/uL PT (9.8-13.1) Seconds INR APTT (25.6-37.1) Seconds pCO2 46 H (35-45) mm/Hg pO2 138 H (80-100) mm/Hg HCO3 35.9 H (21-28) mmol/L ABG pH 7.53 H (7.35-7.45) ABG Total CO2 39.8 H (22-28) mmol/L ABG O2 Saturation 99.7 H (95-98) % ABG O2 Content 14.5 L (15-23) ML/dL ABG Base Excess 14.1 H (-2.0-3.0) mmol/L ABG Hemoglobin 10.5 L (11.7-17.4) g/dL ABG Carboxyhemoglobin 1.7 H (0.5-1.5) % POC ABG HHb (Measured) 0.3 (0.0-5.0) % ABG Methemoglobin 1.5 (0.0-3.0) % ABG O2 Capacity 14.5 L (16-24) mL/dL Chris Test Yes A-a O2 Difference 90.0 mm/Hg Hgb O2 Saturation 96.5 (95.0-98.0) % Vent Mode A/c Mechanical Rate 12 FiO2 40.0 % Tidal Volume 500 PEEP 5 Sodium (132-148) mmol/l Potassium (3.6-5.0) MMOL/L Chloride (98-107) mmol/L Carbon Dioxide (22-30) mmol/L Anion Gap (10-20) BUN (9-20) mg/dl Creatinine (0.8-1.5) mg/dl Est GFR ( Amer) Est GFR (Non-Af Amer) Random Glucose (75-110) mg/dL Calcium (8.4-10.2) mg/dL Total Bilirubin (0.2-1.3) mg/dl AST (17-59) U/L ALT (21-72) U/L Alkaline Phosphatase (38-126) U/L Total Protein (6.3-8.2) G/DL Albumin (3.5-5.0) g/dL Globulin (2.2-3.9) gm/dL Albumin/Globulin Ratio (1.0-2.1) Urine Color Mary (YELLOW) Urine Clarity Slighty-cloudy (Clear) Urine pH 6.0 (5.0-8.0) Ur Specific [place] 1.019 (1.003-1.030) Urine Protein 100 (NEGATIVE) mg/dL Urine Glucose (UA) Neg (Normal) mg/dL Urine Ketones Negative (NEGATIVE) mg/dL Urine Blood Negative (NEGATIVE) Urine Nitrate Negative (NEGATIVE) Urine Bilirubin Small (NEGATIVE) Urine Urobilinogen 4.0 (0.2-1.0) mg/dL Ur Leukocyte Esterase Neg (Negative) Rk/uL Urine RBC (Auto) 3 (0-3) /hpf Urine Microscopic WBC 4 (0-5) /hpf Urine Bacteria Rare (<OCC) Hyaline Casts 0-2 (0-2) /hpf Laboratory Results - last 24 hr 03/24/18 03/25/18 03/25/18 21:30 03:57 05:00 WBC 4.7 L RBC 3.30 L Hgb 10.1 L Hct 30.3 L MCV 91.8 MCH 30.7 MCHC 33.4 RDW 19.0 H Plt Count 109 L PT INR APTT pCO2 46 H pO2 138 H HCO3 35.9 H ABG pH 7.53 H ABG Total CO2 39.8 H ABG O2 Saturation 99.7 H ABG O2 Content 14.5 L ABG Base Excess 14.1 H ABG Hemoglobin 10.5 L ABG Carboxyhemoglobin 1.7 H POC ABG HHb (Measured) 0.3 ABG Methemoglobin 1.5 ABG O2 Capacity 14.5 L Chris Test Yes A-a O2 Difference 90.0 Hgb O2 Saturation 96.5 Vent Mode A/c Mechanical Rate 12 FiO2 40.0 Tidal Volume 500 PEEP 5 Sodium Potassium Chloride Carbon Dioxide Anion Gap BUN Creatinine Est GFR ( Amer) Est GFR (Non-Af Amer) Random Glucose Calcium Total Bilirubin AST ALT Alkaline Phosphatase Total Protein Albumin Globulin Albumin/Globulin Ratio Urine Color Mary Urine Clarity Slighty-cloudy Urine pH 6.0 Ur Specific [place] 1.019 Urine Protein 100 Urine Glucose (UA) Neg Urine Ketones Negative Urine Blood Negative Urine Nitrate Negative Urine Bilirubin Small Urine Urobilinogen 4.0 Ur Leukocyte Esterase Neg Urine RBC (Auto) 3 Urine Microscopic WBC 4 Urine Bacteria Rare Hyaline Casts 0-2 03/25/18 03/25/18 05:00 05:00 WBC RBC Hgb Hct MCV MCH MCHC RDW Plt Count PT 16.1 H INR 1.4 APTT 33.3 pCO2 pO2 HCO3 ABG pH ABG Total CO2 ABG O2 Saturation ABG O2 Content ABG Base Excess ABG Hemoglobin ABG Carboxyhemoglobin POC ABG HHb (Measured) ABG Methemoglobin ABG O2 Capacity Chris Test A-a O2 Difference Hgb O2 Saturation Vent Mode Mechanical Rate FiO2 Tidal Volume PEEP Sodium 132 Potassium 3.3 L Chloride 86 L Carbon Dioxide 39 H Anion Gap 10 BUN 17 Creatinine 0.5 L Est GFR ( Amer) > 60 Est GFR (Non-Af Amer) > 60 Random Glucose 105 Calcium 8.0 L Total Bilirubin 3.5 H AST 34 ALT 39 Alkaline Phosphatase 83 Total Protein 6.0 L Albumin 3.0 L Globulin 3.0 Albumin/Globulin Ratio 1.0 Urine Color Urine Clarity Urine pH Ur Specific [place] Urine Protein Urine Glucose (UA) Urine Ketones Urine Blood Urine Nitrate Urine Bilirubin Urine Urobilinogen Ur Leukocyte Esterase Urine RBC (Auto) Urine Microscopic WBC Urine Bacteria Hyaline Casts Fingerstick Blood Sugar Results: 88 Review of Systems - Review of Systems Review of Systems: Unable to perform, pt is intubated. Critical Care Progress Note - Nutrition Nutrition: Nutrition Category Date Time Status NPO Diet [DIET] Diets 03/17/18 Lunch Active Assessment/Plan - Assessment and Plan (Free Text) Assessment: 77 yo male with PMHx CVA, hepatitis A & B, CHF, AICD, COPD, snf resident, mild to moderate dementia. Pt was admitted to telemetry on 03/12 for AMS, weakness, jaundice. DRY CLEANER APPRENTICE was called on 03/16/18 for worsening dyspnea. Pt was subsequently intubated and admitted to ICU on 03/16 for acute respiratory failure. Pt was briefly extubated and re-intubated on 03/21/18 due to respiratory distress. Chest CT on 03/24/18 shows b/l pleural effusion with compressive atelectasis B/L. Pulmonary: -Sales Office Administrator Dr. Mueller on board -Acute respiratory failure s/p intubation on 03/16/18 -Chest CT on 03/24/18 shows B/L pleural effusions resulting in compressive atelectasis bilaterally -Throacentesis by IR this afternoon -Continue micofungin 100 mg IVP Q24 hrs for oropharyngeal candidiasis. Cardiovascular: -Tattoo Artist Dr. Peralta on board -CHF: proBNP [id number] on 03/22/18 -Hypotension: MAP>65 with levophed @12.5 mcg/min, wean as tolearated. -Continue milrinone 0.375 mcg/kg/min IV GI: -GI on board -Stable H&H -Continue protonix 40 mg IV q12h for possible bleeding ulcer. -Transaminitis resolved but total bilirubin is elevated (3.5), f/u cmp -CT of abdomen and pelvis on 03/12/18 shows moderate abdomen and pelvis ascites. Renal: -Strict monitor of Intake and output -Received 1 dose of lasix 40 mg ivp this morning. negative out of 1400 cc today. Will stop lasix for now. -ABG reviewed, likely volume contraction alkalosis, will stop laxis -Hypokalemia:Potassium 3.3, continue with KCl 60 meq. f/u CMP Hematology: -INR 1.4 Monitor coag. -Thrombocytopenia: platelet 109. Continue to monitor ID: -sputum c&s grows fungal species. Continue micofungin 100 mg ivp q24 hr. DVT prophylaxis - SCD's, SQ heparin GI prophylaxis - protonix IV q12h Code status - full code <PascualDavid V - Last Filed: 03/25/18 16:38> CCU Subjective - Physician Review Events Since Last Encounter (Free Text): 03/25/18 16:36 patient is seen, examined at bedside. discussed in am icu rounds. agree with plan of crae as detailed in resident's note. S/P thoracentesis, drained 1250 cc fluid. post procedure cxr shows no ptx. ?fluid in minor fissure, d/W radiologist CCU Objective - Vital Signs / Intake & Output Vital Signs (Last 4 hours): Vital Signs Temp Pulse Resp BP Pulse Ox 03/25/18 16:00 98.4 F 117 H 18 93/61 L 100 03/25/18 15:00 114 H 12 98/63 L 100 03/25/18 14:55 91 H 14 88/29 L 100 03/25/18 14:35 102 H 14 91/59 L 100 03/25/18 14:00 113 H 12 91/58 L 100 03/25/18 13:00 115 H 12 103/53 L 100 Intake and Output (Last 8hrs): Intake & Output 03/25/18 03/25/18 03/25/18 06:59 14:59 22:59 Intake Total 832 250 350 Output Total 400 1650 250 Balance 432 -1400 100 Weight 196 lb Intake: IV 382 Intake, Piggyback 100 Tube Feeding 450 150 150 Free Water Flush 100 100 Output: Urine 400 1650 250 Urethral (Chen) 400 1650 250 - Medications Active Medications: Active Medications Generic Name Dose Route Start Last Admin Trade Name Freq PRN Reason Stop Dose Admin Acetaminophen 650 mg 03/13/18 01:35 03/24/18 21:00 Tylenol 325mg Tab PO 650 mg Q4 PRN Administration Pain, Mild (1-3) Bisacodyl 10 mg 03/13/18 01:35 Dulcolax MO DAILY PRN No bowel movement x3days Heparin Sodium (Porcine) 5,000 units 03/25/18 09:00 03/25/18 08:27 Heparin SC 5,000 units Q12 EUGENIO Administration Protocol Milrinone Lactate/Dextrose 100 mls @ 10.614 mls/hr 03/19/18 16:30 03/24/18 16 :14 Primacor 20mg/100ml D5w IV 0.25 mcg/kg/min .Q9H26M EUGENIO 7.076 mls/hr Protocol Administration 0.375 MCG/KG/MIN Potassium Chloride 100 mls @ 50 mls/hr 03/25/18 14:00 03/25/18 14:57 Potassium Chloride 20 Meq/100 Ml IVPB 03/25/18 19:59 50 mls/hr Q2 EUGENIO Administration Norepinephrine Bitartrate 8 mg 258 mls @ 24.18 mls/hr 03/25/18 14:18 15:23 / Dextrose IV 03/26/18 00:58 24.18 mls/hr .[id number] ONE Administration 12.5 MCG/MIN Magnesium Hydroxide 30 ml 03/13/18 01:35 Milk Of Magnesia PO HS PRN No bowel movement x2 days Usgen-5-Dfcr Ethyl Esters 1 gm 03/13/18 09:00 03/25/18 08:28 Lovaza PO Not Given Q12 EUGENIO Oxymetazoline HCl 1 spr 03/16/18 16:36 03/16/18 16:47 Nasal Decongestant 15 Ml NS 1 spr Q12 PRN Administration Nasal congestion Pantoprazole Sodium 40 mg 03/18/18 21:00 03/25/18 08:28 Protonix Inj IVP 40 mg Q12 EUGENIO Administration Tamsulosin HCl 0.4 mg 03/13/18 18:00 03/23/18 17:16 Flomax PO Not Given QPM EUGENIO - Patient Studies Lab Studies: Lab Studies 03/25/18 03/25/18 03/25/18 Range/Units 05:00 05:00 05:00 WBC 4.7 L (4.8-10.8) K/uL RBC 3.30 L (4.40-5.90) Mil/uL Hgb 10.1 L (12.0-18.0) g/dL Hct 30.3 L (35.0-51.0) % MCV 91.8 (80.0-94.0) fl MCH 30.7 (27.0-31.0) pg MCHC 33.4 (33.0-37.0) g/dL RDW 19.0 H (11.5-14.5) % Plt Count 109 L (130-400) K/uL PT 16.1 H (9.8-13.1) Seconds INR 1.4 APTT 33.3 (25.6-37.1) Seconds pCO2 (35-45) mm/Hg pO2 (80-100) mm/Hg HCO3 (21-28) mmol/L ABG pH (7.35-7.45) ABG Total CO2 (22-28) mmol/L ABG O2 Saturation (95-98) % ABG O2 Content (15-23) ML/dL ABG Base Excess (-2.0-3.0) mmol/L ABG Hemoglobin (11.7-17.4) g/dL ABG Carboxyhemoglobin (0.5-1.5) % POC ABG HHb (Measured) (0.0-5.0) % ABG Methemoglobin (0.0-3.0) % ABG O2 Capacity (16-24) mL/dL Chris Test A-a O2 Difference mm/Hg Hgb O2 Saturation (95.0-98.0) % Vent Mode Mechanical Rate FiO2 % Tidal Volume PEEP Sodium 132 (132-148) mmol/l Potassium 3.3 L (3.6-5.0) MMOL/L Chloride 86 L (98-107) mmol/L Carbon Dioxide 39 H (22-30) mmol/L Anion Gap 10 (10-20) BUN 17 (9-20) mg/dl Creatinine 0.5 L (0.8-1.5) mg/dl Est GFR ( Amer) > 60 Est GFR (Non-Af Amer) > 60 Random Glucose 105 (75-110) mg/dL Calcium 8.0 L (8.4-10.2) mg/dL Total Bilirubin 3.5 H (0.2-1.3) mg/dl AST 34 (17-59) U/L ALT 39 (21-72) U/L Alkaline Phosphatase 83 (38-126) U/L Total Protein 6.0 L (6.3-8.2) G/DL Albumin 3.0 L (3.5-5.0) g/dL Globulin 3.0 (2.2-3.9) gm/dL Albumin/Globulin Ratio 1.0 (1.0-2.1) Urine Color (YELLOW) Urine Clarity (Clear) Urine pH (5.0-8.0) Ur Specific [place] (1.003-1.030) Urine Protein (NEGATIVE) mg/dL Urine Glucose (UA) (Normal) mg/dL Urine Ketones (NEGATIVE) mg/dL Urine Blood (NEGATIVE) Urine Nitrate (NEGATIVE) Urine Bilirubin (NEGATIVE) Urine Urobilinogen (0.2-1.0) mg/dL Ur Leukocyte Esterase (Negative) Rk/uL Urine RBC (Auto) (0-3) /hpf Urine Microscopic WBC (0-5) /hpf Urine Bacteria (<OCC) Hyaline Casts (0-2) /hpf 03/25/18 03/24/18 Range/Units 03:57 21:30 WBC (4.8-10.8) K/uL RBC (4.40-5.90) Mil/uL Hgb (12.0-18.0) g/dL Hct (35.0-51.0) % MCV (80.0-94.0) fl MCH (27.0-31.0) pg MCHC (33.0-37.0) g/dL RDW (11.5-14.5) % Plt Count (130-400) K/uL PT (9.8-13.1) Seconds INR APTT (25.6-37.1) Seconds pCO2 46 H (35-45) mm/Hg pO2 138 H (80-100) mm/Hg HCO3 35.9 H (21-28) mmol/L ABG pH 7.53 H (7.35-7.45) ABG Total CO2 39.8 H (22-28) mmol/L ABG O2 Saturation 99.7 H (95-98) % ABG O2 Content 14.5 L (15-23) ML/dL ABG Base Excess 14.1 H (-2.0-3.0) mmol/L ABG Hemoglobin 10.5 L (11.7-17.4) g/dL ABG Carboxyhemoglobin 1.7 H (0.5-1.5) % POC ABG HHb (Measured) 0.3 (0.0-5.0) % ABG Methemoglobin 1.5 (0.0-3.0) % ABG O2 Capacity 14.5 L (16-24) mL/dL Chris Test Yes A-a O2 Difference 90.0 mm/Hg Hgb O2 Saturation 96.5 (95.0-98.0) % Vent Mode A/c Mechanical Rate 12 FiO2 40.0 % Tidal Volume 500 PEEP 5 Sodium (132-148) mmol/l Potassium (3.6-5.0) MMOL/L Chloride (98-107) mmol/L Carbon Dioxide (22-30) mmol/L Anion Gap (10-20) BUN (9-20) mg/dl Creatinine (0.8-1.5) mg/dl Est GFR ( Amer) Est GFR (Non-Af Amer) Random Glucose (75-110) mg/dL Calcium (8.4-10.2) mg/dL Total Bilirubin (0.2-1.3) mg/dl AST (17-59) U/L ALT (21-72) U/L Alkaline Phosphatase (38-126) U/L Total Protein (6.3-8.2) G/DL Albumin (3.5-5.0) g/dL Globulin (2.2-3.9) gm/dL Albumin/Globulin Ratio (1.0-2.1) Urine Color Mary (YELLOW) Urine Clarity Slighty-cloudy (Clear) Urine pH 6.0 (5.0-8.0) Ur Specific [place] 1.019 (1.003-1.030) Urine Protein 100 (NEGATIVE) mg/dL Urine Glucose (UA) Neg (Normal) mg/dL Urine Ketones Negative (NEGATIVE) mg/dL Urine Blood Negative (NEGATIVE) Urine Nitrate Negative (NEGATIVE) Urine Bilirubin Small (NEGATIVE) Urine Urobilinogen 4.0 (0.2-1.0) mg/dL Ur Leukocyte Esterase Neg (Negative) Rk/uL Urine RBC (Auto) 3 (0-3) /hpf Urine Microscopic WBC 4 (0-5) /hpf Urine Bacteria Rare (<OCC) Hyaline Casts 0-2 (0-2) /hpf Laboratory Results - last 24 hr 03/24/18 03/25/18 03/25/18 21:30 03:57 05:00 WBC 4.7 L RBC 3.30 L Hgb 10.1 L Hct 30.3 L MCV 91.8 MCH 30.7 MCHC 33.4 RDW 19.0 H Plt Count 109 L PT INR APTT pCO2 46 H pO2 138 H HCO3 35.9 H ABG pH 7.53 H ABG Total CO2 39.8 H ABG O2 Saturation 99.7 H ABG O2 Content 14.5 L ABG Base Excess 14.1 H ABG Hemoglobin 10.5 L ABG Carboxyhemoglobin 1.7 H POC ABG HHb (Measured) 0.3 ABG Methemoglobin 1.5 ABG O2 Capacity 14.5 L Chris Test Yes A-a O2 Difference 90.0 Hgb O2 Saturation 96.5 Vent Mode A/c Mechanical Rate 12 FiO2 40.0 Tidal Volume 500 PEEP 5 Sodium Potassium Chloride Carbon Dioxide Anion Gap BUN Creatinine Est GFR ( Amer) Est GFR (Non-Af Amer) Random Glucose Calcium Total Bilirubin AST ALT Alkaline Phosphatase Total Protein Albumin Globulin Albumin/Globulin Ratio Urine Color Mary Urine Clarity Slighty-cloudy Urine pH 6.0 Ur Specific [place] 1.019 Urine Protein 100 Urine Glucose (UA) Neg Urine Ketones Negative Urine Blood Negative Urine Nitrate Negative Urine Bilirubin Small Urine Urobilinogen 4.0 Ur Leukocyte Esterase Neg Urine RBC (Auto) 3 Urine Microscopic WBC 4 Urine Bacteria Rare Hyaline Casts 0-2 03/25/18 03/25/18 05:00 05:00 WBC RBC Hgb Hct MCV MCH MCHC RDW Plt Count PT 16.1 H INR 1.4 APTT 33.3 pCO2 pO2 HCO3 ABG pH ABG Total CO2 ABG O2 Saturation ABG O2 Content ABG Base Excess ABG Hemoglobin ABG Carboxyhemoglobin POC ABG HHb (Measured) ABG Methemoglobin ABG O2 Capacity Chris Test A-a O2 Difference Hgb O2 Saturation Vent Mode Mechanical Rate FiO2 Tidal Volume PEEP Sodium 132 Potassium 3.3 L Chloride 86 L Carbon Dioxide 39 H Anion Gap 10 BUN 17 Creatinine 0.5 L Est GFR ( Amer) > 60 Est GFR (Non-Af Amer) > 60 Random Glucose 105 Calcium 8.0 L Total Bilirubin 3.5 H AST 34 ALT 39 Alkaline Phosphatase 83 Total Protein 6.0 L Albumin 3.0 L Globulin 3.0 Albumin/Globulin Ratio 1.0 Urine Color Urine Clarity Urine pH Ur Specific [place] Urine Protein Urine Glucose (UA) Urine Ketones Urine Blood Urine Nitrate Urine Bilirubin Urine Urobilinogen Ur Leukocyte Esterase Urine RBC (Auto) Urine Microscopic WBC Urine Bacteria Hyaline Casts Critical Care Progress Note - Nutrition Nutrition: Nutrition Category Date Time Status NPO Diet [DIET] Diets 03/17/18 Lunch Active
--- NOTE | 2018-03-25 14:45 | PCM.SURG1 ---
Surgeon's Initial Post Op Note - Surgeon's Notes Surgeon: Beni Saenz MD Parish Nurse: NONE Type of Anesthesia: Local Pre-Operative Diagnosis: Bilateral pleural effusion, ventilatory failure Operative Findings: US showed large right pleural effusion Post-Operative Diagnosis: Bilateral pleural effusion, ventilatory failure Operation Performed: US guided right thoracentesis Specimen/Specimens Removed: 1250 cc of yellow fluid Estimated Blood Loss: EBL {In ML}: 0 Blood Products Given: N/A Drains Used: No Drains Post-Op Condition: Fair Date of Surgery/Procedure: 03/25/18 Time of Surgery/Procedure: 14:40
[2018-03-25] MEDS: Potassium Chloride 20 mEq 100 ML IVPB SCH ×3 (14:57→19:00)
--- NOTE | 2018-03-25 15:02 | RAD ---
Date of service: 03/25/2018 PROCEDURE: CHEST RADIOGRAPH, 1 VIEW HISTORY: Status post right thoracentesis. COMPARISON: CHEST X-RAY 03/25/2018 4:35 A.M. FINDINGS: LUNGS: Improved aeration right lung following thoracentesis. Moderate to large left pleural effusion. PLEURA: There is no pneumothorax. CARDIOVASCULAR: Cardiac and mediastinal silhouettes unremarkable. Left pacemaker in place. OSSEOUS STRUCTURES: No significant abnormalities. VISUALIZED UPPER ABDOMEN: Normal. OTHER FINDINGS: Right IJ triple-lumen catheter. ET tube position unchanged and stable position. A NG tube in place. IMPRESSION: Improved aeration of right lung following thoracentesis. There is no pneumothorax. Lines and tubes are unchanged from previous study.
[2018-03-25] MEDS: Milrinone 20mg/100ml D5W 100 ML IV SCH (23:52)
[2018-03-26 05:41] LABS: ABG ALLEN TEST YES; ARTERIAL BLOOD GAS HCO3 34.3 mmol/L (21-28); ARTERIAL BLOOD GAS HEMOGLOBIN 11.1 g/dL (11.7-17.4); ARTERIAL BLOOD GAS O2 CAPACITY 15.6 mL/dL (16-24); ARTERIAL BLOOD GAS O2 CONTENT 15.5 ML/dL (15-23); ARTERIAL BLOOD GAS O2 SAT 99.5 % (95-98); ARTERIAL BLOOD GAS PCO2 43 mm/Hg (35-45); ARTERIAL BLOOD GAS PH 7.53 (7.35-7.45); ARTERIAL BLOOD GAS PO2 171 mm/Hg (80-100); ARTERIAL BLOOD GAS TCO2 37.2 mmol/L (22-28)
[2018-03-26 05:51] LABS: HEMOGLOBIN 10.5 g/dL (12.0-18.0); MEAN CELL VOLUME 92.3 fl (80.0-94.0); MEAN CORPUSCULAR HEMOGLOBIN 30.5 pg (27.0-31.0); RBC 3.44 Mil/uL (4.40-5.90); RED CELL DISTRIBUTION WIDTH 19.9 % (11.5-14.5); WHITE BLOOD COUNT 5.2 K/uL (4.8-10.8)
[2018-03-26 06:21] LABS: BLOOD UREA NITROGEN 18 mg/dl (9-20); CALCIUM 8.2 mg/dL (8.4-10.2); GFR AFRICAN-AMERICAN > 60; GFR NON-AFRICAN AMERICAN > 60
[2018-03-26] MEDS: Omega-3-Acid Ethyl Esters 1 GM Cap PO SCH ×2 (08:38→21:51)
--- NOTE | 2018-03-26 08:41 | RAD ---
Date of service: 03/26/2018 HISTORY: repositioned ETT COMPARISON: 03/26/2018 at 0420 hours FINDINGS: LUNGS: There is vague rounded opacity in the right mid to lower lung zone -less dense than before. Left opacity -similar Lung volumes shallow PLEURA: Small bilateral pleural effusions. No no pneumothorax appreciated. The left pleural effusion appears smaller CARDIOVASCULAR: Minimal cardiomegaly. Mild pulmonary venous congestion -slightly increased since prior exam. Position/ configuration of pacemaker Right internal jugular vein catheter tip in superior vena cava -right atrial junction. An endotracheal tube tip is approximately 3 cm cephalad to the kailee An NG tube is not appreciated on this exam. OSSEOUS STRUCTURES: No significant abnormalities. VISUALIZED UPPER ABDOMEN: Normal. OTHER FINDINGS: None. IMPRESSION: No interval pneumothorax. Interval improved aeration of the rounded opacity in the right mid to lower lung zone - patient status post right thoracentesis with some inferred atelectatic changes. Continued surveillance to ensure complete clearance is advised. Additional underlying pathology here not excluded and follow-up is advised. Small left pleural effusion - smaller than before -some minimal concomitant compressive atelectasis explain left basal opacity possible. No interval worsening here perceived Cardiomegaly. Pulmonary venous congestion slightly increased. Satisfactory endotracheal tube positioning. Other findings as above.
--- NOTE | 2018-03-26 09:02 | CP.PCM.PN ---
Subjective - Date & Time of Evaluation Date of Evaluation: 03/26/18 Time of Evaluation: 09:02 Objective - Vital Signs/Intake and Output Vital Signs (last 24 hours): Temp Pulse Resp BP Pulse Ox 98.7 F 120 H 18 112/57 L 100 03/26/18 07:41 03/26/18 07:41 03/26/18 07:41 03/26/18 07:41 03/26/18 07:41 Intake and Output: 03/26/18 03/26/18 06:59 18:59 Intake Total 1100 Output Total 100 Balance 1100 -100 - Medications Medications: Current Medications Acetaminophen (Tylenol 325mg Tab) 650 mg PO Q4 PRN PRN Reason: Pain, Mild (1-3) Last Admin: 03/24/18 21:00 Dose: 650 mg Acetaminophen (Tylenol 650 Mg Supp) 650 mg SC Q6 PRN PRN Reason: Fever >100.4 F Last Admin: 03/26/18 00:08 Dose: 650 mg Bisacodyl (Dulcolax) 10 mg SC DAILY PRN PRN Reason: No bowel movement x3days Heparin Sodium (Porcine) (Heparin) 5,000 units SC Q12 EUGENIO PRN Reason: Protocol Last Admin: 03/25/18 20:04 Dose: 5,000 units Milrinone Lactate/Dextrose (Primacor 20mg/100ml D5w) 100 mls @ 10.614 mls/hr IV .Q9H26M EUGENIO; 0.375 MCG/KG/MIN PRN Reason: Protocol Last Admin: 03/24/18 16:14 Dose: 0.25 mcg/kg/min, 7.076 mls/hr Milrinone Lactate/Dextrose (Primacor 20mg/100ml D5w) 100 mls @ 6.668 mls/hr IV .Q15H EUGENIO; 0.25 MCG/KG/MIN PRN Reason: Protocol Last Admin: 03/25/18 23:52 Dose: 0.25 mcg/kg/min, 6.668 mls/hr Norepinephrine Bitartrate 8 mg (/ Dextrose) 258 mls @ 24.18 mls/hr IV .[id number] ONE; 12.5 MCG/MIN PRN Reason: Protocol Stop: 03/26/18 19:10 Last Admin: 03/26/18 08:26 Dose: 10 mcg/min, 19.35 mls/hr Magnesium Hydroxide (Milk Of Magnesia) 30 ml PO HS PRN PRN Reason: No bowel movement x2 days [id number]-[id number] Ethyl Esters (Lovaza) 1 gm PO Q12 COUNTS INCLUDE 234 BEDS AT THE [facility] Last Admin: 03/26/18 08:38 Dose: 1 gm Oxymetazoline HCl (Nasal Decongestant 15 Ml) 1 spr NS Q12 PRN PRN Reason: Nasal congestion Last Admin: 03/16/18 16:47 Dose: 1 spr Pantoprazole Sodium (Protonix Inj) 40 mg IVP Q12 COUNTS INCLUDE 234 BEDS AT THE [facility] Last Admin: 03/26/18 08:38 Dose: 40 mg Tamsulosin HCl (Flomax) 0.4 mg PO QPM COUNTS INCLUDE 234 BEDS AT THE [facility] Last Admin: 03/25/18 17:00 Dose: 0.4 mg - Labs Labs: 03/26/18 05:10 03/26/18 05:10 PT 16.1 Seconds (9.8-13.1) H 03/25/18 05:00 INR 1.4 03/25/18 05:00 APTT 33.3 Seconds (25.6-37.1) 03/25/18 05:00 Assessment and Plan (1) CHF (congestive heart failure) Status: Chronic (2) Acute respiratory failure Status: Acute (3) Altered mental status Status: Acute (4) Jaundice Status: Acute (5) CAD (coronary artery disease) Status: Chronic (6) History of permanent cardiac pacemaker placement Status: Deleted (7) COPD exacerbation Status: Resolved
[2018-03-26] MEDS: Morphine 4 MG/ML VIAL IVP PRN ×2 (11:16→16:05)
--- NOTE | 2018-03-26 11:34 | CP.CCUPN ---
<[place] - Last Filed: 03/26/18 16:05> CCU Subjective - Physician Review Subjective (Free Text): 03/26/18 11:28 Patient seen and examined during rounds this AM. Pt is s/p intubated and mechanically vented. He is alert and responds to verbal and tactile stimulus. Pt is currently on levophed and milrinone for hypotension with goal of MAP >65. Pt had thoracentesis of right pleural effusion and drained 1250 cc fluids yesterday afternoon. Overnight, pt had fever of 101.9 F and initiated broad spectrum coverage with vancomycin and zosyn this morning. Smith cultures 2 days ago negative so far. Chen in placed draining out and feeding through OG tube. CCU Objective - Vital Signs / Intake & Output Vital Signs (Last 4 hours): Vital Signs Temp Pulse Resp BP Pulse Ox 03/26/18 07:41 98.7 F 120 H 18 112/57 L 100 Intake and Output (Last 8hrs): Intake & Output 03/25/18 03/26/18 03/26/18 22:59 06:59 14:59 Intake Total 1000 700 Output Total 475 100 Balance 525 700 -100 Intake: Intake, Piggyback 200 Tube Feeding 600 600 Free Water Flush 200 100 Output: Urine 475 100 Urethral (Chen) 475 100 - Physical Exam Head: Positive for: Atraumatic, Other (Jaundiced) Pupils: Positive for: PERRL Extroacular Muscles: Positive for: EOMI Conjunctiva: Positive for: Normal Mouth: Positive for: Other (Intubated) Neck: Positive for: Other Respiratory/Chest: Positive for: Clear to Auscultation, Good Air Exchange. Negative for: Wheezes, Rales Cardiovascular: Positive for: Regular Rate and Rhythm, Normal S1, S2, Peripheal Pulses Present, Tachycardic Abdomen: Positive for: Normal Bowel Sounds. Negative for: Tenderness, Distention, Peritoneal Signs Upper Extremity: Positive for: Edema (Mild edema of B/L forearms and hands. No signs of infection) Lower Extremity: Negative for: Edema Neurological: Positive for: Other (Intubated, response to verbal and tactile stimulus) Skin: Positive for: Other Psychiatric: Positive for: Alert - Medications Active Medications: Active Medications Generic Name Dose Route Start Last Admin Trade Name Freq PRN Reason Stop Dose Admin Acetaminophen 650 mg 03/13/18 01:35 08/06/18 21:00 Tylenol 325mg Tab PO 650 mg Q4 PRN Administration Pain, Mild (1-3) Acetaminophen 650 mg 03/25/18 23:46 03/26/18 00:08 Tylenol 650 Mg Supp AK 650 mg Q6 PRN Administration Fever >100.4 F Bisacodyl 10 mg 03/13/18 01:35 Dulcolax [place] DAILY PRN No bowel movement x3days Heparin Sodium (Porcine) 5,000 units 03/25/18 09:00 03/26/18 10:00 Heparin SC Not Given Q12 EUGNEIO Protocol Milrinone Lactate/Dextrose 100 mls @ 10.614 mls/hr 03/19/18 16:30 03/24/18 16 :14 Primacor 20mg/100ml D5w IV 0.25 mcg/kg/min .Q9H26M EUGENIO 7.076 mls/hr Protocol Administration 0.375 MCG/KG/MIN Milrinone Lactate/Dextrose 100 mls @ 6.668 mls/hr 03/25/18 22:45 03/25/18 23: 52 Primacor 20mg/100ml D5w IV 0.25 mcg/kg/min .Q15H EUGENIO 6.668 mls/hr Protocol Administration 0.25 MCG/KG/MIN Norepinephrine Bitartrate 8 mg 258 mls @ 24.18 mls/hr 03/26/18 08:30 08:26 / Dextrose IV 03/26/18 19:10 10 mcg/min .[id number] ONE 19.35 mls/hr Protocol Administration 12.5 MCG/MIN Vancomycin HCl 750 mg/ Sodium 250 mls @ 166.667 mls/hr 03/26/18 10:45 Chloride IVPB Q12 EUGENIO Protocol Piperacillin Sod/Tazobactam 100 mls @ 100 mls/hr 03/26/18 16:00 Sod 3.375 gm/ Sodium Chloride IVPB Q6 EUGENIO Protocol Magnesium Hydroxide 30 ml 03/13/18 01:35 Milk Of Magnesia PO HS PRN No bowel movement x2 days Morphine Sulfate 3 mg 03/26/18 10:39 03/26/18 11:16 Morphine IVP 3 mg Q4 PRN Administration Agitation [id number] Ethyl Esters 1 gm 03/13/18 09:00 03/26/18 08:38 Lovaza PO 1 gm Q12 EUGENIO Administration Oxymetazoline HCl 1 spr 03/16/18 16:36 03/16/18 16:47 Nasal Decongestant 15 Ml NS 1 spr Q12 PRN Administration Nasal congestion Pantoprazole Sodium 40 mg 03/18/18 21:00 03/26/18 08:38 Protonix Inj IVP 40 mg Q12 EUGENIO Administration - Patient Studies Lab Studies: Microbiology Studies 03/24/18 21:30 Blood Culture - Preliminary Blood-Thru Central Line NO GROWTH AFTER 24 HOURS 03/24/18 21:15 Blood Culture - Preliminary Blood-Thru Central Line NO GROWTH AFTER 24 HOURS 03/24/18 21:30 Gram Stain - Final Sputum Induced Lab Studies 03/26/18 03/26/18 03/26/18 Range/Units 05:26 05:10 05:10 WBC 5.2 (4.8-10.8) K/uL RBC 3.44 L (4.40-5.90) Mil/uL Hgb 10.5 L (12.0-18.0) g/dL Hct 31.7 L (35.0-51.0) % MCV 92.3 (80.0-94.0) fl MCH 30.5 (27.0-31.0) pg MCHC 33.0 (33.0-37.0) g/dL RDW 19.9 H (11.5-14.5) % Plt Count 170 (130-400) K/uL pCO2 43 (35-45) mm/Hg pO2 171 H (80-100) mm/Hg HCO3 34.3 H (21-28) mmol/L ABG pH 7.53 H (7.35-7.45) ABG Total CO2 37.2 H (22-28) mmol/L ABG O2 Saturation 99.5 H (95-98) % ABG O2 Content 15.5 (15-23) ML/dL ABG Base Excess 12.0 H (-2.0-3.0) mmol/L ABG Hemoglobin 11.1 L (11.7-17.4) g/dL ABG Carboxyhemoglobin 1.4 (0.5-1.5) % POC ABG HHb (Measured) 0.5 (0.0-5.0) % ABG Methemoglobin 1.5 (0.0-3.0) % ABG O2 Capacity 15.6 L (16-24) mL/dL Chris Test Yes A-a O2 Difference 60.0 mm/Hg Hgb O2 Saturation 96.7 (95.0-98.0) % Vent Mode A/c Mechanical Rate 500 FiO2 40.0 % Tidal Volume 12 PEEP 5 Sodium 130 L (132-148) mmol/l Potassium 4.1 (3.6-5.0) MMOL/L Chloride 87 L (98-107) mmol/L Carbon Dioxide 34 H (22-30) mmol/L Anion Gap 13 (10-20) BUN 18 (9-20) mg/dl Creatinine 0.5 L (0.8-1.5) mg/dl Est GFR ( Amer) > 60 Est GFR (Non-Af Amer) > 60 Random Glucose 119 H (75-110) mg/dL Calcium 8.2 L (8.4-10.2) mg/dL Laboratory Results - last 24 hr 03/26/18 03/26/18 03/26/18 05:10 05:10 05:26 WBC 5.2 RBC 3.44 L Hgb 10.5 L Hct 31.7 L MCV 92.3 MCH 30.5 MCHC 33.0 RDW 19.9 H Plt Count 170 pCO2 43 pO2 171 H HCO3 34.3 H ABG pH 7.53 H ABG Total CO2 37.2 H ABG O2 Saturation 99.5 H ABG O2 Content 15.5 ABG Base Excess 12.0 H ABG Hemoglobin 11.1 L ABG Carboxyhemoglobin 1.4 POC ABG HHb (Measured) 0.5 ABG Methemoglobin 1.5 ABG O2 Capacity 15.6 L Chris Test Yes A-a O2 Difference 60.0 Hgb O2 Saturation 96.7 Vent Mode A/c Mechanical Rate 500 FiO2 40.0 Tidal Volume 12 PEEP 5 Sodium 130 L Potassium 4.1 Chloride 87 L Carbon Dioxide 34 H Anion Gap 13 BUN 18 Creatinine 0.5 L Est GFR ( Amer) > 60 Est GFR (Non-Af Amer) > 60 Random Glucose 119 H Calcium 8.2 L Fingerstick Blood Sugar Results: 88 Review of Systems - Review of Systems Review of Systems: unable to perform ROS, s/p intubated. Critical Care Progress Note - Nutrition Nutrition: Nutrition Category Date Time Status NPO Diet [DIET] Diets 03/17/18 Lunch Active Assessment/Plan - Assessment and Plan (Free Text) Assessment: 77 yo male with PMHx CVA, hepatitis A & B, CHF, AICD, COPD, senior care resident, mild to moderate dementia. Pt was admitted to telemetry on 03/12 for AMS, weakness, jaundice. 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 Pt was subsequently intubated and admitted to ICU on 03/16 for acute respiratory failure. Pt was briefly extubated and re-intubated on 03/21/18 due to respiratory distress. Chest CT on 03/24/18 shows b/l pleural effusion with compressive atelectasis B/L. Pt had thorcentesis of right pleural effusion and drained 1250 cc of yellow fluids. Pulmonary: -Merchandise Flow Associate Dr. Mueller on board -Acute respiratory failure s/p intubation on 03/16/18 -Chest CT on 03/24/18 shows B/L pleural effusions resulting in compressive atelectasis bilaterally -S/P right throacentesis yesterday. -AM CXR: no pneumothorax. Has rounded opacity on right middle/low lung zone. -Pt had episodes of fever last 2 days. Started on vancomycin 750 mg ivp q12 and zosyn 3.375 g ivp q6h this morning. Blood cx, urine cx and sputum cx on 03/24/18 show no growth. -Received micofungin 100 mg IVP Q24 hrs from 03/21 to 03/24. Cardiovascular: -Dampener Operator Dr. Peralta on board -CHF: proBNP [id number] on 03/22/18, echocardiogram on 02/10/18: EF 20-25% -Hypotension: MAP>65 with levophed @10 mcg/min, wean as tolearated. -Continue milrinone 0.25 mcg/kg/min IV GI: -GI on board -Stable H&H -Continue protonix 40 mg IV q12h for possible bleeding ulcer. -Transaminitis resolved but total bilirubin is elevated (3.5), f/u cmp -CT of abdomen and pelvis on 03/12/18 shows moderate abdomen and pelvis ascites. Renal: -Strict monitor of Intake and output -Lasix stopped yesteday. Negative output balance. -Hypokalemia: resolved, K 4.1 this AM. f/u CMP. Hematology: -INR 1.4 yesterday. Monitor coag. -Thrombocytopenia: platelet improved to 170. Continue to monitor ID: -Fever ( 101.9 F) overnight -Started on vancomycin 750 mg ivp q12 and zosyn 3.375 g ivp q6hr -Sputum cx, urine cx and blood cx on 03/24/18: negative so far. DVT prophylaxis - SCD's, SQ heparin GI prophylaxis - protonix IV q12h Code status - full code <Miquel Barnard - Last Filed: 03/26/18 18:12> CCU Subjective - Physician Review Subjective (Free Text): Attestation: Patient seen and examined at the bedside with Resident Dr. Darell Lowry; and I agree with his outline of plans and management documented below as discussed on AM rounds reflecting my review of all applicable clinical data, and participation in the care of the patient throughout the day in ICU; today, March 26, 2018. Critical Care Progress Note - Nutrition Nutrition: Nutrition Category Date Time Status NPO Diet [DIET] Diets 03/17/18 Lunch Active
[2018-03-26] MEDS ORDERED: Lidocaine 1% Inj (20ml) ONE (12:59)
[2018-03-26] MEDS: Milrinone 20mg/100ml D5W 100 ML IV SCH (13:02)
--- NOTE | 2018-03-26 13:29 | PCM.SURG1 ---
Surgeon's Initial Post Op Note - Surgeon's Notes Surgeon: Beni Saenz MD Multi Line Claims Adjuster: NONE Type of Anesthesia: Local Pre-Operative Diagnosis: left pleural effusion, ventilatory failure Operative Findings: US showed small left effusion Post-Operative Diagnosis: left pleural effusion, ventilatory failure Operation Performed: US guided left thoracentesis Specimen/Specimens Removed: 400 cc of yellow fluid Estimated Blood Loss: EBL {In ML}: 0 Blood Products Given: N/A Drains Used: No Drains Post-Op Condition: Fair Date of Surgery/Procedure: 03/26/18 Time of Surgery/Procedure: 13:25
[2018-03-26] MEDS ORDERED: Chlorhexidine Gluconate 1 APPL/PKT TP ONE (13:36)
--- NOTE | 2018-03-26 15:29 | RAD ---
Date of service: 03/26/2018 HISTORY: ETT placement COMPARISON: Comparison chest 03/25/2018 the FINDINGS: In situ ETT, tip of which lies approximately 5.7 cm above kailee. NGT is present, the distal aspect and tip of which are poorly seen on this exam though appear to be well below EG junction. . No change right IJ central venous line with tip in the SVC LUNGS: Localized opacity right mid to lower lung field could represent round atelectasis and/or infiltrate or possibly fluid in the fissure. Hazy opacity seen throughout the left hemithorax (likely representing layering effusion and atelectasis) improved. PLEURA: As above. No pneumothorax apparent. CARDIOVASCULAR: Heart size stable. No change multi lead pacemaker/defibrillator. OSSEOUS STRUCTURES: No significant abnormalities. VISUALIZED UPPER ABDOMEN: Normal. OTHER FINDINGS: None. IMPRESSION: Localized opacity right mid to lower lung field could represent round atelectasis and/or infiltrate or possibly fluid in the fissure. Hazy opacity seen throughout the left hemithorax (likely representing layering effusion and atelectasis) improved.
--- NOTE | 2018-03-26 15:29 | RAD ---
Date of service: 03/26/2018 PROCEDURE: CHEST RADIOGRAPH, 1 VIEW HISTORY: status post left thoracentesis. COMPARISON: Comparison made with prior chest radiograph 03/26/2018 at 0812 hours. FINDINGS: In situ ETT, tip of which lies approximately 0.2 cm above kailee. Right IJ central venous line with tip in the SVC also unchanged. LUNGS: Previously noted left-sided hazy opacity felt to represent a large layering effusion has diminished. Persistent mild opacity in the right lower lung field may represent atelectasis and or infiltrate. Suspect small right-sided effusion. PLEURA: As above. No definitive pneumothorax. CARDIOVASCULAR: Cardiac silhouette stable. No change multi lead pacemaker/defibrillator OSSEOUS STRUCTURES: No significant abnormalities. VISUALIZED UPPER ABDOMEN: Normal. OTHER FINDINGS: None. IMPRESSION: Support lines and tubes as above. Previously noted left-sided hazy opacity felt to represent a large layering effusion has diminished. Persistent mild opacity in the right lower lung field may represent atelectasis and or infiltrate. Suspect small right-sided effusion.
--- NOTE | 2018-03-26 15:54 | CP.PCM.PN ---
Subjective - Date & Time of Evaluation Date of Evaluation: 03/26/18 Time of Evaluation: 11:00 - Subjective Subjective: F/U Respiratory failure. intubated, awake, follows commands Objective - Vital Signs/Intake and Output Vital Signs (last 24 hours): Temp Pulse Resp BP Pulse Ox 98.7 F 117 H 12 91/63 L 100 03/26/18 12:00 03/26/18 14:00 03/26/18 14:00 03/26/18 14:00 03/26/18 14:00 Intake and Output: 03/26/18 03/26/18 06:59 18:59 Intake Total 1100 450 Output Total 100 Balance 1100 350 - Medications Medications: Current Medications Acetaminophen (Tylenol 325mg Tab) 650 mg PO Q4 PRN PRN Reason: Pain, Mild (1-3) Last Admin: 03/24/18 21:00 Dose: 650 mg Acetaminophen (Tylenol 650 Mg Supp) 650 mg [place] Q6 PRN PRN Reason: Fever >100.4 F Last Admin: 03/26/18 00:08 Dose: 650 mg Bisacodyl (Dulcolax) 10 mg [place] DAILY PRN PRN Reason: No bowel movement x3days Heparin Sodium (Porcine) (Heparin) 5,000 units SC Q12 EUGENIO PRN Reason: Protocol Last Admin: 03/26/18 10:00 Dose: Not Given Milrinone Lactate/Dextrose (Primacor 20mg/100ml D5w) 100 mls @ 10.614 mls/hr IV .Q9H26M EUGENIO; 0.375 MCG/KG/MIN PRN Reason: Protocol Last Admin: 03/24/18 16:14 Dose: 0.25 mcg/kg/min, 7.076 mls/hr Milrinone Lactate/Dextrose (Primacor 20mg/100ml D5w) 100 mls @ 6.668 mls/hr IV .Q15H EUGENIO; 0.25 MCG/KG/MIN PRN Reason: Protocol Last Admin: 03/26/18 13:02 Dose: 0.25 mcg/kg/min, 6.668 mls/hr Norepinephrine Bitartrate 8 mg (/ Dextrose) 258 mls @ 24.18 mls/hr IV .[id number] ONE; 12.5 MCG/MIN PRN Reason: Protocol Stop: 03/26/18 19:10 Last Admin: 03/26/18 08:26 Dose: 10 mcg/min, 19.35 mls/hr Vancomycin HCl 750 mg/ Sodium (Chloride) 250 mls @ 166.667 mls/hr IVPB Q12 EUGENIO PRN Reason: Protocol Last Admin: 03/26/18 12:29 Dose: 166.667 mls/hr Piperacillin Sod/Tazobactam (Sod 3.375 gm/ Sodium Chloride) 100 mls @ 100 mls/ hr IVPB Q6 EUGENIO PRN Reason: Protocol Magnesium Hydroxide (Milk Of Magnesia) 30 ml PO HS PRN PRN Reason: No bowel movement x2 days Morphine Sulfate (Morphine) 3 mg IVP Q4 PRN PRN Reason: Agitation Last Admin: 03/26/18 11:16 Dose: 3 mg [id number]-[id number] Ethyl Esters (Lovaza) 1 gm PO Q12 EUGENIO Last Admin: 03/26/18 08:38 Dose: 1 gm Oxymetazoline HCl (Nasal Decongestant 15 Ml) 1 spr NS Q12 PRN PRN Reason: Nasal congestion Last Admin: 03/16/18 16:47 Dose: 1 spr Pantoprazole Sodium (Protonix Inj) 40 mg IVP Q12 EUGENIO Last Admin: 03/26/18 08:38 Dose: 40 mg - Labs Labs: 03/26/18 05:10 03/26/18 05:10 PT 16.1 Seconds (9.8-13.1) H 03/25/18 05:00 INR 1.4 03/25/18 05:00 APTT 33.3 Seconds (25.6-37.1) 03/25/18 05:00 - Constitutional Appears: Chronically Ill - Head Exam Head Exam: NORMAL INSPECTION - Eye Exam Eye Exam: PERRL - ENT Exam Additional comments: INTUBATED - Neck Exam Neck Exam: Normal Inspection - Respiratory Exam Respiratory Exam: Decreased Breath Sounds (at bases) - Cardiovascular Exam Cardiovascular Exam: REGULAR RHYTHM Additional comments: AICD - GI/Abdominal Exam GI & Abdominal Exam: Soft, Normal Bowel Sounds - Extremities Exam Additional comments: Edema upper extremities. R-L TKR - Neurological Exam Neurological Exam: Awake Additional comments: Intubated, follows simple commands, generalized weakness, no focal motor deficit - Psychiatric Exam Additional comments: Calm - Skin Skin Exam: Warm Additional comments: Jaundice Assessment and Plan (1) Acute respiratory failure Status: Acute (2) CHF (congestive heart failure) Status: Chronic (3) CAD (coronary artery disease) Status: Chronic (4) Jaundice Status: Acute (5) COPD (chronic obstructive pulmonary disease) Status: Acute (6) AICD (automatic cardioverter/defibrillator) present Status: Chronic (7) Altered mental status Status: Acute (8) Generalized weakness Status: Chronic (9) Difficulty with speech Status: Chronic (10) Anxiety Status: Chronic - Assessment and Plan (Free Text) Plan: Patient on Levophed and Primacor for Tx of low BP and CHF, continue Zosyn, Vanco, DuoNeb and rest of treatment, CT Chest B/L effusions with lower lobes atelectasis, Patient had 8-7 R Thoracentesis 1250cc , f/u by L Thoracentesis today , in attempt to wean for ventilator , all previous attempt unsusccessful, Patient with end stage CMP, will start to talk with Patient's family possibility of Tracheostomy if unable to wean Critical care time: 35 minutes.
[2018-03-26] MEDS: Piperacillin/Tazobact 3.375 GM in Sodium Chloride 0.9% 100 ML IVPB SCH ×2 (16:06→21:48)
[2018-03-26] MEDS ORDERED: Milrinone 20mg/100ml D5W 100 ML IV SCH (19:45)
[2018-03-26] MEDS: Albuterol-Ipratrop 3 mg / 0.5 (3 ml) UD INH SCH (23:38)
[2018-03-27] MEDS: Piperacillin/Tazobact 3.375 GM in Sodium Chloride 0.9% 100 ML IVPB SCH ×4 (03:18→22:20)
[2018-03-27] MEDS: Albuterol-Ipratrop 3 mg / 0.5 (3 ml) UD INH SCH ×6 (03:32→23:54)
[2018-03-27 03:39] LABS: ABG ALLEN TEST YES; ARTERIAL BLOOD GAS HCO3 31.9 mmol/L (21-28); ARTERIAL BLOOD GAS HEMOGLOBIN 10.1 g/dL (11.7-17.4); ARTERIAL BLOOD GAS O2 CAPACITY 14.1 mL/dL (16-24); ARTERIAL BLOOD GAS O2 CONTENT 14.1 ML/dL (15-23); ARTERIAL BLOOD GAS O2 SAT 100.2 % (95-98); ARTERIAL BLOOD GAS PCO2 41 mm/Hg (35-45); ARTERIAL BLOOD GAS PH 7.51 (7.35-7.45); ARTERIAL BLOOD GAS PO2 143 mm/Hg (80-100)
[2018-03-27 06:13] LABS: HEMOGLOBIN 9.8 g/dL (12.0-18.0); MEAN CELL VOLUME 92.5 fl (80.0-94.0); MEAN CORPUSCULAR HEMOGLOBIN 31.1 pg (27.0-31.0); MEAN CORPUSCULAR HGB CONC 33.6 g/dL (33.0-37.0); RBC 3.16 Mil/uL (4.40-5.90); RED CELL DISTRIBUTION WIDTH 19.4 % (11.5-14.5); WHITE BLOOD COUNT 5.2 K/uL (4.8-10.8)
[2018-03-27 06:20] LABS: BLOOD UREA NITROGEN 15 mg/dl (9-20); CALCIUM 8.1 mg/dL (8.4-10.2); GFR AFRICAN-AMERICAN > 60; GFR NON-AFRICAN AMERICAN > 60
--- NOTE | 2018-03-27 07:32 | RAD ---
Date of service: 03/27/2018 HISTORY: reevaluate COMPARISON: Portable chest 03/26/2018 1:36 p.m.. FINDINGS: Endotracheal tube, right center venous line and AICD/permanent pacemaker again identified in position, unchanged. LUNGS: Bat wing pattern of opacity at the perihilar regions is increased suspicious for worsening pulmonary vascular congestion or underlying airspace disease not excluded. Left base remains opacified from atelectasis most likely. Mild left hemidiaphragm elevation noted. No pleural effusion bilaterally or pneumothorax. PLEURA: As above. CARDIOVASCULAR: As above. OSSEOUS STRUCTURES: No significant abnormalities. VISUALIZED UPPER ABDOMEN: Normal. OTHER FINDINGS: None. IMPRESSION: Mild increase in CHF pattern. Continued clinical and radiographic monitoring advised.
--- NOTE | 2018-03-27 11:20 | PCM.PROC ---
Procedures Attestation:: I certify that I have explained the specified Operation(s) or Procedure(s), risks, benefits and reasonable alternatives to the Patient and/or other person responsible. The opportunity was given to ask questions and all questions answered - Extubation Clinical Parameters: Resolution/Stabilization of disease process, Intact Cough/ Gag Reflex, Spontaneous Respirations, Acceptable Vent Settings (FIO2<50%, PEEP<8 , PaO2>75, pH>7.25) Weaning Criteria Met: Yes General Weaning Approaches: Spontaneous breathing trials and use of T-Piece Patient Condition: Patient has been successfully extubated and assessed Oxygen Therapy: O2 via Venti Mask (50%) Patient Tolerated Procedure: Well Additional Comments: Trial at extubation given again: he is awake and alert, on minimal Milrinone dose and low dose Levophed. Tolerated approx 45 min on low level CPAP PS with stable vitals and no visible distress. Decision made to extubate o 50% CAM. ETT removed without difficulty, minor blood tinged secretions noted upon final ETT suctioning prior to extubation. Stable spontaneous respiratory pattern notyed, no immediate stridor. SPO2 100% on 50% CAM. Will monitor closely post- extubation. ABG to follow.
[2018-03-27] MEDS ORDERED: Sodium Chloride 3% for Inhalation 4 ML VIAL.NEB IH PRN (11:41)
--- NOTE | 2018-03-27 11:46 | US ---
PROCEDURE: Date of procedure: 03/25/2018 Procedure: 1. Ultrasound-guided Right thoracentesis, CPT 21122 Medications: 6cc 1% Lidocaine HISTORY: Right pleural effusion, ventilatory failure TECHNIQUE: Following informed consent ,the Patients' right chest was marked. Procedure time-out was called, and the patient was placed in the sitting position and limited ultrasound showed a large right effusion. The patient's right back was prepped and draped in the usual sterile fashion. After the skin was anesthetized with lidocaine, a drainage catheter was advanced under ultrasound guidance into the pleural space. Ultrasound-guided thoracentesis was performed. A total of 1400 cubic centimeters of straw-colored fluid removed without complication. A Xeroform dressing was applied. IMPRESSION: Ultrasound guided Right thoracentesis. There were no immediate complications.
[2018-03-27 12:07] LABS: VENOUS BLOOD GAS BASE EXCESS 8.6 mmol/L (0.0-2.0); VENOUS BLOOD GAS PCO2 49 mmHg (40-60); VENOUS BLOOD GAS PO2 52 mm/Hg (30-55); VENOUS BLOOD PH 7.45 (7.32-7.43)
[2018-03-27 14:10] LABS: ABG ALLEN TEST YES; ARTERIAL BLOOD GAS HCO3 31.1 mmol/L (21-28); ARTERIAL BLOOD GAS PCO2 37 mm/Hg (35-45); ARTERIAL BLOOD GAS PH 7.53 (7.35-7.45); ARTERIAL BLOOD GAS PO2 147 mm/Hg (80-100)
--- NOTE | 2018-03-27 14:15 | CP.CCUPN ---
Addendum entered and electronically signed by Sultan Lowry MD 03/27/18 15:23: Post extubation ABG's reviewed. Pt is slight tacypneic, has increased work of breathing and looks tired. Pt is awake and easily arousable. Will start on high flow oxygen with 20L and 50% FIO2. Pt's milrinone was also stopped due to tachycardia in 130's. Will continue to monitor. Original Note: <Sultan Essence - Last Filed: 03/27/18 13:57> CCU Subjective - Physician Review Subjective (Free Text): 03/27/18 11:57 Patient seen and examined at bedside this morning. Overnight events reviewed, pt had fever last night. This morning, pt was given spontaneous breathing trial for 45 minutes and tolerated SBT well. Pt was subsequently extubated and was placed on venti mask. Still on levophed 7.5 mls/hr and milrinone 0.125 mcg for hypotension with a goal of MAP>65. CCU Objective - Vital Signs / Intake & Output Vital Signs (Last 4 hours): Vital Signs Temp Pulse Resp BP Pulse Ox 03/27/18 13:00 132 H 17 100/53 L 100 03/27/18 12:00 98.2 F 133 H 19 96/64 L 100 03/27/18 11:00 136 H 14 97/70 L 99 03/27/18 10:00 129 H 17 89/65 L 100 Intake and Output (Last 8hrs): Intake & Output 03/26/18 03/27/18 03/27/18 22:59 06:59 14:59 Intake Total 2185 1050 350 Output Total 925 350 Balance 1260 700 350 Weight 86.636 kg Intake: IV 685 250 0 Intake, Piggyback 100 350 Tube Feeding 1200 600 Free Water Flush 200 200 Output: Urine 525 350 Urethral (Chen) 525 350 Other 400 Other: # Bowel Movements 0 - Physical Exam Head: Positive for: Atraumatic, Other (Jaundiced) Pupils: Positive for: PERRL Extroacular Muscles: Positive for: EOMI Conjunctiva: Positive for: Normal Pharnyx: Negative for: ERYTHEMA Neck: Positive for: Trachea Midline. Negative for: Meningeal Signs, MIDLINE TENDERNESS Respiratory/Chest: Positive for: Clear to Auscultation, Good Air Exchange. Negative for: Wheezes, Rales Cardiovascular: Positive for: Regular Rate and Rhythm, Normal S1, S2, Peripheal Pulses Present, Tachycardic Abdomen: Positive for: Normal Bowel Sounds. Negative for: Tenderness, Distention, Peritoneal Signs Upper Extremity: Positive for: Edema (Mild edema of B/L forearms and hands. No signs of infection) Lower Extremity: Negative for: Edema Neurological: Positive for: Other (awake and alert) Skin: Positive for: Other Psychiatric: Positive for: Alert, Oriented x 3 - Medications Active Medications: Active Medications Generic Name Dose Route Start Last Admin Trade Name Freq PRN Reason Stop Dose Admin Acetaminophen 650 mg 03/13/18 01:35 03/24/18 21:00 Tylenol 325mg Tab PO 650 mg Q4 PRN Administration Pain, Mild (1-3) Acetaminophen 650 mg 03/25/18 23:46 03/26/18 21:13 Tylenol 650 Mg Supp SD 650 mg Q6 PRN Administration Fever >100.4 F Albuterol/Ipratropium 3 ml 03/26/18 20:00 03/27/18 11:24 Duoneb 3 Mg/0.5 Mg (3 Ml) Ud INH 3 ml RQ4 EUGENIO Administration Bisacodyl 10 mg 03/13/18 01:35 03/27/18 09:01 Dulcolax SD 10 mg DAILY PRN Administration No bowel movement x3days Heparin Sodium (Porcine) 5,000 units 03/25/18 09:00 03/27/18 08:57 Heparin SC 5,000 units Q12 EUGENIO Administration Protocol Piperacillin Sod/Tazobactam 100 mls @ 100 mls/hr 03/26/18 16:00 03/27/18 09: 00 Sod 3.375 gm/ Sodium Chloride IVPB 100 mls/hr Q6 EUGENIO Administration Protocol Vancomycin HCl 750 mg/ Sodium 250 mls @ 166.667 mls/hr 03/27/18 21:00 Chloride IVPB Q12 EUGENIO Protocol Magnesium Hydroxide 30 ml 03/13/18 01:35 Milk Of Magnesia PO HS PRN No bowel movement x2 days Morphine Sulfate 3 mg 03/26/18 10:39 03/26/18 16:05 Morphine IVP 3 mg Q4 PRN Administration Agitation Oxymetazoline HCl 1 spr 03/16/18 16:36 03/16/18 16:47 Nasal Decongestant 15 Ml NS 1 spr Q12 PRN Administration Nasal congestion Pantoprazole Sodium 40 mg 03/18/18 21:00 03/27/18 08:57 Protonix Inj IVP 40 mg Q12 EUGENIO Administration - Patient Studies Lab Studies: Microbiology Studies 03/24/18 21:30 Gram Stain - Final Sputum Induced Sputum Culture - Final NORMAL ORAL TARIQ 03/24/18 21:15 Blood Culture - Preliminary Blood-Thru Central Line NO GROWTH AFTER 48 HOURS 03/24/18 21:30 Urine Culture - Final Urine,Catheterized No Growth (<1,000 CFU/ML) 03/24/18 21:30 S.aureus & Coag-Neg Staph PNA FISH - Final Blood-Thru Central Line Blood Culture - Preliminary Gram Positive Cocci Gram Stain - Final Lab Studies 03/27/18 03/27/18 03/27/18 Range/Units 12:00 04:20 04:20 WBC (4.8-10.8) K/uL RBC (4.40-5.90) Mil/uL Hgb (12.0-18.0) g/dL Hct (35.0-51.0) % MCV (80.0-94.0) fl MCH (27.0-31.0) pg MCHC (33.0-37.0) g/dL RDW (11.5-14.5) % Plt Count (130-400) K/uL pCO2 (35-45) mm/Hg pO2 52 (80-100) mm/Hg HCO3 (21-28) mmol/L ABG pH (7.35-7.45) ABG Total CO2 (22-28) mmol/L ABG O2 Saturation (95-98) % ABG O2 Content (15-23) ML/dL ABG Base Excess (-2.0-3.0) mmol/L ABG Hemoglobin (11.7-17.4) g/dL ABG Carboxyhemoglobin (0.5-1.5) % POC ABG HHb (Measured) (0.0-5.0) % ABG Methemoglobin (0.0-3.0) % ABG O2 Capacity (16-24) mL/dL Chris Test VBG pH 7.45 H (7.32-7.43) VBG pCO2 49 (40-60) mmHg VBG HCO3 31.4 mmol/L VBG Total CO2 35.6 H (22-28) mmol/L VBG O2 Sat (Calc) 79.7 H (40-65) % VBG Base Excess 8.6 H (0.0-2.0) mmol/L VBG Potassium 3.3 L (3.6-5.2) mmol/L A-a O2 Difference mm/Hg Hgb O2 Saturation (95.0-98.0) % Glucose 146 H (75-110) mg/dL Lactate 2.0 (0.7-2.1) mmol/L Vent Mode Mechanical Rate FiO2 50.0 % Tidal Volume PEEP Sodium 124.0 L 130 L (132-148) mmol/l Potassium 3.7 (3.6-5.0) MMOL/L Chloride 90.0 L 88 L (98-107) mmol/L Carbon Dioxide 31 H (22-30) mmol/L Anion Gap 15 (10-20) BUN 15 (9-20) mg/dl Creatinine 0.5 L (0.8-1.5) mg/dl Est GFR ( Amer) > 60 Est GFR (Non-Af Amer) > 60 Random Glucose 97 (75-110) mg/dL Calcium 8.1 L (8.4-10.2) mg/dL Cortisol AM Sample 2.6 L (4.46-22.7) ug/dL Venous Blood Potassium 3.3 L (3.6-5.2) mmol/L 03/27/18 03/27/18 Range/Units 04:20 03:28 WBC 5.2 (4.8-10.8) K/uL RBC 3.16 L (4.40-5.90) Mil/uL Hgb 9.8 L (12.0-18.0) g/dL Hct 29.2 L (35.0-51.0) % MCV 92.5 (80.0-94.0) fl MCH 31.1 H (27.0-31.0) pg MCHC 33.6 (33.0-37.0) g/dL RDW 19.4 H (11.5-14.5) % Plt Count 195 (130-400) K/uL pCO2 41 (35-45) mm/Hg pO2 143 H (80-100) mm/Hg HCO3 31.9 H (21-28) mmol/L ABG pH 7.51 H (7.35-7.45) ABG Total CO2 34.0 H (22-28) mmol/L ABG O2 Saturation 100.2 H (95-98) % ABG O2 Content 14.1 L (15-23) ML/dL ABG Base Excess 8.9 H (-2.0-3.0) mmol/L ABG Hemoglobin 10.1 L (11.7-17.4) g/dL ABG Carboxyhemoglobin 1.8 H (0.5-1.5) % POC ABG HHb (Measured) -0.2 L (0.0-5.0) % ABG Methemoglobin 1.4 (0.0-3.0) % ABG O2 Capacity 14.1 L (16-24) mL/dL Chris Test Yes VBG pH (7.32-7.43) VBG pCO2 (40-60) mmHg VBG HCO3 mmol/L VBG Total CO2 (22-28) mmol/L VBG O2 Sat (Calc) (40-65) % VBG Base Excess (0.0-2.0) mmol/L VBG Potassium (3.6-5.2) mmol/L A-a O2 Difference 91.0 mm/Hg Hgb O2 Saturation 97.0 (95.0-98.0) % Glucose (75-110) mg/dL Lactate (0.7-2.1) mmol/L Vent Mode A/c Mechanical Rate 12 FiO2 40.0 % Tidal Volume 500 PEEP 5 Sodium (132-148) mmol/l Potassium (3.6-5.0) MMOL/L Chloride (98-107) mmol/L Carbon Dioxide (22-30) mmol/L Anion Gap (10-20) BUN (9-20) mg/dl Creatinine (0.8-1.5) mg/dl Est GFR ( Amer) Est GFR (Non-Af Amer) Random Glucose (75-110) mg/dL Calcium (8.4-10.2) mg/dL Cortisol AM Sample (4.46-22.7) ug/dL Venous Blood Potassium (3.6-5.2) mmol/L Laboratory Results - last 24 hr 03/27/18 03/27/18 03/27/18 03:28 04:20 04:20 WBC 5.2 RBC 3.16 L Hgb 9.8 L Hct 29.2 L MCV 92.5 MCH 31.1 H MCHC 33.6 RDW 19.4 H Plt Count 195 pCO2 41 pO2 143 H HCO3 31.9 H ABG pH 7.51 H ABG Total CO2 34.0 H ABG O2 Saturation 100.2 H ABG O2 Content 14.1 L ABG Base Excess 8.9 H ABG Hemoglobin 10.1 L ABG Carboxyhemoglobin 1.8 H POC ABG HHb (Measured) -0.2 L ABG Methemoglobin 1.4 ABG O2 Capacity 14.1 L Chris Test Yes VBG pH VBG pCO2 VBG HCO3 VBG Total CO2 VBG O2 Sat (Calc) VBG Base Excess VBG Potassium A-a O2 Difference 91.0 Hgb O2 Saturation 97.0 Glucose Lactate Vent Mode A/c Mechanical Rate 12 FiO2 40.0 Tidal Volume 500 PEEP 5 Sodium 130 L Potassium 3.7 Chloride 88 L Carbon Dioxide 31 H Anion Gap 15 BUN 15 Creatinine 0.5 L Est GFR ( Amer) > 60 Est GFR (Non-Af Amer) > 60 Random Glucose 97 Calcium 8.1 L Cortisol AM Sample Venous Blood Potassium 03/27/18 03/27/18 04:20 12:00 WBC RBC Hgb Hct MCV MCH MCHC RDW Plt Count pCO2 pO2 52 HCO3 ABG pH ABG Total CO2 ABG O2 Saturation ABG O2 Content ABG Base Excess ABG Hemoglobin ABG Carboxyhemoglobin POC ABG HHb (Measured) ABG Methemoglobin ABG O2 Capacity Chris Test VBG pH 7.45 H VBG pCO2 49 VBG HCO3 31.4 VBG Total CO2 35.6 H VBG O2 Sat (Calc) 79.7 H VBG Base Excess 8.6 H VBG Potassium 3.3 L A-a O2 Difference Hgb O2 Saturation Glucose 146 H Lactate 2.0 Vent Mode Mechanical Rate FiO2 50.0 Tidal Volume PEEP Sodium 124.0 L Potassium Chloride 90.0 L Carbon Dioxide Anion Gap BUN Creatinine Est GFR ( Amer) Est GFR (Non-Af Amer) Random Glucose Calcium Cortisol AM Sample 2.6 L Venous Blood Potassium 3.3 L Fingerstick Blood Sugar Results: 88 Critical Care Progress Note - Nutrition Nutrition: Nutrition Category Date Time Status NPO Diet [DIET] Diets 03/17/18 Lunch Active Assessment/Plan - Assessment and Plan (Free Text) Assessment: 77 yo male with PMHx CVA, hepatitis A & B, CHF, AICD, COPD, [place] resident, mild to moderate dementia. Pt was admitted to telemetry on 03/12 for AMS, weakness, jaundice. GLASS CYLINDER FLANGER was called on 03/16/18 for worsening dyspnea. Pt was subsequently intubated and admitted to ICU on 03/16 for acute respiratory failure. Pt was briefly extubated and re-intubated on 03/21/18 due to respiratory distress. Chest CT on 03/24/18 shows b/l pleural effusion with compressive atelectasis B/L. Pt had thoracentesis of right pleural effusion and drained 1250 cc of yellow fluids and thoracentesis of left pleural effusion with drainage of 400 cc. This morning pt was extubated and on vanturi mask. Pulmonary: -[employer] Dr. Mueller on board -Acute respiratory failure s/p intubation on 03/16/18 and extubated this morning -Chest CT on 03/24/18 shows B/L pleural effusions resulting in compressive atelectasis bilaterally -S/P B/L throacentesis -AM CXR: no pneumothorax. Has rounded opacity on right middle/low lung zone. -Blood cx on 03/24/18 shows gram positive cocci. -Continue on vancomycin 750 mg ivp q12 and zosyn 3.375 g ivp q6h this morning. -Received micofungin 100 mg IVP Q24 hrs from 03/21 to 03/24. -Blood cx, urine cx and sputum cx again ordered today for fever. Cardiovascular: -[facility]cd[facility] N [employer] Operator Dr. Peralta on board -CHF: proBNP [id number] on 03/22/18, echocardiogram on 02/10/18: EF 20-25% -Hypotension: MAP>65 with levophed @ 7.5 mcg/min, wean as tolearated. GI: -GI on board -Stable H&H -Continue protonix 40 mg IV q12h for possible bleeding ulcer. -Transaminitis resolved -CT of abdomen and pelvis on 03/12/18 shows moderate abdomen and pelvis ascites. Renal: -Strict monitor of Intake and output -Hypokalemia: resolved, K 3.7 this AM. f/u CMP. Hematology: -INR 1.4 Monitor coag. -Thrombocytopenia: platelet improved to 195. Continue to monitor ID: -Bacteremia (blood cx on 03/24/18 shows gram positive cocci) -Fever ( 101.9 F) overnight -Continue on vancomycin 750 mg ivp q12 and zosyn 3.375 g ivp q6hr -Sputum cx, urine cx and blood cx done today again DVT prophylaxis - SCD's, SQ heparin GI prophylaxis - protonix IV q12h Code status - full code <iMquel Barnard - Last Filed: 03/27/18 15:56> CCU Subjective - Physician Review Subjective (Free Text): Attestation: Patient seen and examined at the bedside with Resident Dr. Darell Lowry; and I agree with his outline of plans and management documented below as discussed on AM rounds reflecting my review of all applicable clinical data, and participation in the care of the patient throughout the day in ICU; today, March 27, 2018.
--- NOTE | 2018-03-27 15:41 | CP.PCM.PN ---
Subjective - Date & Time of Evaluation Date of Evaluation: 03/27/18 Time of Evaluation: 11:30 - Subjective Subjective: F/U Respiratory failure extubated, awake , follows commands, confused Objective - Vital Signs/Intake and Output Vital Signs (last 24 hours): Temp Pulse Resp BP Pulse Ox 98.2 F 128 H 16 91/58 L 100 03/27/18 12:00 03/27/18 14:00 03/27/18 15:33 03/27/18 14:00 03/27/18 14:00 Intake and Output: 03/27/18 03/27/18 06:59 18:59 Intake Total 1565 350 Output Total 500 Balance 1065 350 - Medications Medications: Current Medications Acetaminophen (Tylenol 325mg Tab) 650 mg PO Q4 PRN PRN Reason: Pain, Mild (1-3) Last Admin: 03/24/18 21:00 Dose: 650 mg Acetaminophen (Tylenol 650 Mg Supp) 650 mg VA Q6 PRN PRN Reason: Fever >100.4 F Last Admin: 03/27/18 15:23 Dose: 650 mg Acetaminophen (Tylenol 650 Mg Supp) 650 mg VA ONCE PRN PRN Reason: Fever >100.4 F Albuterol/Ipratropium (Duoneb 3 Mg/0.5 Mg (3 Ml) Ud) 3 ml INH RQ4 EUGENIO Last Admin: 03/27/18 15:32 Dose: 3 ml Bisacodyl (Dulcolax) 10 mg VA DAILY PRN PRN Reason: No bowel movement x3days Last Admin: 03/27/18 09:01 Dose: 10 mg Heparin Sodium (Porcine) (Heparin) 5,000 units SC Q12 EUGENIO PRN Reason: Protocol Last Admin: 03/27/18 08:57 Dose: 5,000 units Piperacillin Sod/Tazobactam (Sod 3.375 gm/ Sodium Chloride) 100 mls @ 100 mls/ hr IVPB Q6 EUGENIO PRN Reason: Protocol Last Admin: 03/27/18 09:00 Dose: 100 mls/hr Vancomycin HCl 750 mg/ Sodium (Chloride) 250 mls @ 166.667 mls/hr IVPB Q12 EUGENIO PRN Reason: Protocol Norepinephrine Bitartrate 8 mg (/ Dextrose) 258 mls @ 9.67 mls/hr IV .Q24H EUGENIO ; 5 MCG/MIN PRN Reason: Protocol Magnesium Hydroxide (Milk Of Magnesia) 30 ml PO HS PRN PRN Reason: No bowel movement x2 days Morphine Sulfate (Morphine) 3 mg IVP Q4 PRN PRN Reason: Agitation Last Admin: 03/26/18 16:05 Dose: 3 mg Oxymetazoline HCl (Nasal Decongestant 15 Ml) 1 spr NS Q12 PRN PRN Reason: Nasal congestion Last Admin: 03/16/18 16:47 Dose: 1 spr Pantoprazole Sodium (Protonix Inj) 40 mg IVP Q12 EUGENIO Last Admin: 03/27/18 08:57 Dose: 40 mg - Labs Labs: 03/27/18 04:20 03/27/18 04:20 PT 16.1 Seconds (9.8-13.1) H 03/25/18 05:00 INR 1.4 03/25/18 05:00 APTT 33.3 Seconds (25.6-37.1) 03/25/18 05:00 - Constitutional Appears: Chronically Ill - Head Exam Head Exam: NORMAL INSPECTION - Eye Exam Eye Exam: PERRL - ENT Exam Additional comments: Extubated - Neck Exam Neck Exam: Normal Inspection - Respiratory Exam Respiratory Exam: Decreased Breath Sounds ( at bases) - Cardiovascular Exam Cardiovascular Exam: REGULAR RHYTHM Additional comments: PPM - GI/Abdominal Exam GI & Abdominal Exam: Soft, Normal Bowel Sounds - Extremities Exam Additional comments: Edema upper extremities, R-L TKR - Neurological Exam Neurological Exam: Awake Additional comments: Extubated, follows simple commands, confused, generalized weakness, no focal motor deficit - Psychiatric Exam Psychiatric exam: Normal Mood - Skin Skin Exam: Warm Additional comments: Jaundice Assessment and Plan (1) Acute respiratory failure Status: Acute (2) CHF (congestive heart failure) Status: Chronic (3) Altered mental status Status: Acute (4) UTI (urinary tract infection) Status: Resolved (5) Difficulty with speech Status: Chronic (6) History of permanent cardiac pacemaker placement Status: Chronic (7) CAD (coronary artery disease) Status: Chronic (8) Generalized weakness Status: Chronic (9) Anxiety Status: Chronic (10) Jaundice Status: Acute (11) Bleeding Status: Acute - Assessment and Plan (Free Text) Plan: had Left Thoracentesis yesterday 400cc, extubated today, Primacor DC for Tachycardia, continue Levophed, Zosyn, Vanco and rest of treatment
[2018-03-28] MEDS: Piperacillin/Tazobact 3.375 GM in Sodium Chloride 0.9% 100 ML IVPB SCH ×2 (04:00→09:25)
[2018-03-28] MEDS: Albuterol-Ipratrop 3 mg / 0.5 (3 ml) UD INH SCH ×5 (04:01→19:33)
[2018-03-28 05:47] LABS: BASO % 0.6 % (0.0-2.0); EOS # 0.1 K/uL (0.0-0.7); EOS % 1.8 % (0.0-4.0); HEMOGLOBIN 10.3 g/dL (12.0-18.0); LYMPH # 1.6 K/uL (1.0-4.3); LYMPH % 29.4 % (20.0-40.0); MEAN CELL VOLUME 92.2 fl (80.0-94.0); MEAN CORPUSCULAR HEMOGLOBIN 30.8 pg (27.0-31.0); MEAN CORPUSCULAR HGB CONC 33.4 g/dL (33.0-37.0); MEAN PLATELET VOLUME 9.2 fl (7.2-11.7); MONO # 0.4 K/uL (0.0-0.8); MONO % 8.3 % (0.0-10.0); NEUT # 3.2 K/uL (1.8-7.0); NEUT % 59.9 % (50.0-75.0); NRBC % 0.1 % (0.0-0.0); RBC 3.33 Mil/uL (4.40-5.90); RED CELL DISTRIBUTION WIDTH 19.8 % (11.5-14.5); WHITE BLOOD COUNT 5.4 K/uL (4.8-10.8)
[2018-03-28 05:59] LABS: ALBUMIN 3.2 g/dL (3.5-5.0); ALT/SGPT 43 U/L (21-72); AST/SGOT 50 U/L (17-59); BLOOD UREA NITROGEN 15 mg/dl (9-20); CALCIUM 8.4 mg/dL (8.4-10.2); GFR AFRICAN-AMERICAN > 60; GFR NON-AFRICAN AMERICAN > 60
--- NOTE | 2018-03-28 12:27 | CP.CCUPN ---
<Lane, - Last Filed: 03/28/18 14:10> CCU Subjective - Physician Review Subjective (Free Text): 03/27/18 11:57 Patient seen and examined at bedside this morning. No acute overnight events. Pt was extubated yesterday and was on high flow oxygen (40 L, 50% FIO2) overnight and changed to 3 L NC O2, saturating well >96%.This morning, pt is awake, alert and responds to simple commands but still confused. Pt is off levophed and milrinone and has maintained MAP >65. CCU Objective - Vital Signs / Intake & Output Vital Signs (Last 4 hours): Vital Signs Pulse Resp BP Pulse Ox 03/28/18 10:00 119 H 20 99/57 L 100 03/28/18 08:17 16 Intake and Output (Last 8hrs): Intake & Output 03/27/18 03/28/18 03/28/18 22:59 06:59 14:59 Intake Total 355 450 350 Output Total 475 320 45 Balance -120 130 305 Intake: IV 105 Intake, Piggyback 100 450 350 Tube Feeding 150 Output: Urine 475 320 45 Urethral (Chen) 475 320 45 Other: # Bowel Movements 2 1 - Physical Exam Head: Positive for: Atraumatic, Other (Jaundiced) Pupils: Positive for: PERRL Extroacular Muscles: Positive for: EOMI Conjunctiva: Positive for: Normal Mouth: Positive for: Other (Intubated) Pharnyx: Negative for: ERYTHEMA Neck: Positive for: Trachea Midline. Negative for: Meningeal Signs, MIDLINE TENDERNESS Respiratory/Chest: Positive for: Clear to Auscultation, Good Air Exchange. Negative for: Wheezes, Rales Cardiovascular: Positive for: Regular Rate and Rhythm, Normal S1, S2, Peripheal Pulses Present, Tachycardic Abdomen: Positive for: Normal Bowel Sounds. Negative for: Tenderness, Distention, Peritoneal Signs Upper Extremity: Positive for: Edema (minimal now. significant improvement from yesterday.) Lower Extremity: Negative for: Edema Neurological: Positive for: Other (awake and alert, responds of simple questions.) Skin: Positive for: Other Psychiatric: Positive for: Alert. Negative for: Oriented x 3 - Medications Active Medications: Active Medications Generic Name Dose Route Start Last Admin Trade Name Freq PRN Reason Stop Dose Admin Acetaminophen 650 mg 03/13/18 01:35 03/24/18 21:00 Tylenol 325mg Tab PO 650 mg Q4 PRN Administration Pain, Mild (1-3) Acetaminophen 650 mg 03/25/18 23:46 03/27/18 15:23 Tylenol 650 Mg Supp NM 650 mg Q6 PRN Administration Fever >100.4 F Acetaminophen 650 mg 03/27/18 15:04 Tylenol 650 Mg Supp NM ONCE PRN Fever >100.4 F Albuterol/Ipratropium 3 ml 03/26/18 20:00 03/28/18 11:46 Duoneb 3 Mg/0.5 Mg (3 Ml) Ud INH 3 ml RQ4 EUGENIO Administration Bisacodyl 10 mg 03/13/18 01:35 03/27/18 09:01 Dulcolax NM 10 mg DAILY PRN Administration No bowel movement x3days Heparin Sodium (Porcine) 5,000 units 03/25/18 09:00 03/28/18 09:24 Heparin SC 5,000 units Q12 EUGENIO Administration Protocol Vancomycin HCl 750 mg/ Sodium 250 mls @ 166.667 mls/hr 03/27/18 21:00 10:16 Chloride IVPB 166.667 mls/hr Q12 EUGENIO Administration Protocol Norepinephrine Bitartrate 8 mg 258 mls @ 9.67 mls/hr 03/27/18 15:31 03/27/18 18:16 / Dextrose IV 0 mcg/min .Q24H EUGENIO 0 mls/hr Protocol Titration 5 MCG/MIN Magnesium Hydroxide 30 ml 03/13/18 01:35 Milk Of Magnesia PO HS PRN No bowel movement x2 days Morphine Sulfate 3 mg 03/26/18 10:39 03/26/18 16:05 Morphine IVP 3 mg Q4 PRN Administration Agitation Oxymetazoline HCl 1 spr 03/16/18 16:36 03/16/18 16:47 Nasal Decongestant 15 Ml NS 1 spr Q12 PRN Administration Nasal congestion Pantoprazole Sodium 40 mg 03/18/18 21:00 03/28/18 09:25 Protonix Inj IVP 40 mg Q12 EUGENIO Administration - Patient Studies Lab Studies: Microbiology Studies 03/27/18 13:00 Urine Culture - Final Urine,Chen No Growth (<1,000 CFU/ML) 03/24/18 21:30 S.aureus & Coag-Neg Staph PNA FISH - Final Blood-Thru Central Line Blood Culture - Final Coagulase Neg Staphylococcus Gram Stain - Final 03/24/18 21:15 Blood Culture - Preliminary Blood-Thru Central Line NO GROWTH AFTER 3 DAYS 03/24/18 21:30 Gram Stain - Final Sputum Induced Sputum Culture - Final NORMAL ORAL TARIQ Lab Studies 03/28/18 03/28/18 03/28/18 Range/Units 06:32 05:10 05:10 WBC 5.4 (4.8-10.8) K/uL RBC 3.33 L (4.40-5.90) Mil/uL Hgb 10.3 L (12.0-18.0) g/dL Hct 30.7 L (35.0-51.0) % MCV 92.2 (80.0-94.0) fl MCH 30.8 (27.0-31.0) pg MCHC 33.4 (33.0-37.0) g/dL RDW 19.8 H (11.5-14.5) % Plt Count 239 (130-400) K/uL MPV 9.2 (7.2-11.7) fl Neut % (Auto) 59.9 (50.0-75.0) % Lymph % (Auto) 29.4 (20.0-40.0) % [place] % (Auto) 8.3 (0.0-10.0) % Eos % (Auto) 1.8 (0.0-4.0) % Baso % (Auto) 0.6 (0.0-2.0) % Neut # (Auto) 3.2 (1.8-7.0) K/uL Lymph # (Auto) 1.6 (1.0-4.3) K/uL [place] # (Auto) 0.4 (0.0-0.8) K/uL Eos # (Auto) 0.1 (0.0-0.7) K/uL Baso # (Auto) 0.0 (0.0-0.2) K/uL pCO2 (35-45) mm/Hg pO2 (30-55) mm/Hg HCO3 (21-28) mmol/L ABG pH (7.35-7.45) ABG Total CO2 (22-28) mmol/L ABG O2 Saturation (95-98) % ABG Base Excess (-2.0-3.0) mmol/L Chris Test ABG Potassium (3.6-5.2) mmol/L VBG pH (7.32-7.43) VBG pCO2 (40-60) mmHg VBG HCO3 mmol/L VBG Total CO2 (22-28) mmol/L VBG O2 Sat (Calc) (40-65) % VBG Base Excess (0.0-2.0) mmol/L VBG Potassium (3.6-5.2) mmol/L A-a O2 Difference mm/Hg Sodium 132 (132-148) mmol/L Chloride 90 L (98-107) mmol/L Glucose (75-110) mg/dL Lactate (0.7-2.1) mmol/L FiO2 % Potassium 3.5 L (3.6-5.0) MMOL/L Carbon Dioxide 31 H (22-30) mmol/L Anion Gap 15 (10-20) BUN 15 (9-20) mg/dl Creatinine 0.5 L (0.8-1.5) mg/dl Est GFR ( Amer) > 60 Est GFR (Non-Af Amer) > 60 Random Glucose 78 (75-110) mg/dL Serum Osmolality (272-300) mosm/kg Calcium 8.4 (8.4-10.2) mg/dL Total Bilirubin 3.4 H (0.2-1.3) mg/dl AST 50 (17-59) U/L ALT 43 (21-72) U/L Alkaline Phosphatase 79 (38-126) U/L Total Protein 6.4 (6.3-8.2) G/DL Albumin 3.2 L (3.5-5.0) g/dL Globulin 3.2 (2.2-3.9) gm/dL Albumin/Globulin Ratio 1.0 (1.0-2.1) Arterial Blood Potassium (3.6-5.2) mmol/L Venous Blood Potassium (3.6-5.2) mmol/L Urine Osmolality 697 (300-1000) mosm/kg Ur Random Sodium 90 meq/L Ur Random Potassium 78.7 mmol/L 03/28/18 03/27/18 03/27/18 Range/Units 05:10 13:55 12:00 WBC (4.8-10.8) K/uL RBC (4.40-5.90) Mil/uL Hgb (12.0-18.0) g/dL Hct (35.0-51.0) % MCV (80.0-94.0) fl MCH (27.0-31.0) pg MCHC (33.0-37.0) g/dL RDW (11.5-14.5) % Plt Count (130-400) K/uL MPV (7.2-11.7) fl Neut % (Auto) (50.0-75.0) % Lymph % (Auto) (20.0-40.0) % [place] % (Auto) (0.0-10.0) % Eos % (Auto) (0.0-4.0) % Baso % (Auto) (0.0-2.0) % Neut # (Auto) (1.8-7.0) K/uL Lymph # (Auto) (1.0-4.3) K/uL [place] # (Auto) (0.0-0.8) K/uL Eos # (Auto) (0.0-0.7) K/uL Baso # (Auto) (0.0-0.2) K/uL pCO2 37 (35-45) mm/Hg pO2 147 H 52 (30-55) mm/Hg HCO3 31.1 H (21-28) mmol/L ABG pH 7.53 H (7.35-7.45) ABG Total CO2 32.0 H (22-28) mmol/L ABG O2 Saturation 100.0 H (95-98) % ABG Base Excess 7.8 H (-2.0-3.0) mmol/L Chris Test Yes ABG Potassium 3.3 L (3.6-5.2) mmol/L VBG pH 7.45 H (7.32-7.43) VBG pCO2 49 (40-60) mmHg VBG HCO3 31.4 mmol/L VBG Total CO2 35.6 H (22-28) mmol/L VBG O2 Sat (Calc) 79.7 H (40-65) % VBG Base Excess 8.6 H (0.0-2.0) mmol/L VBG Potassium 3.3 L (3.6-5.2) mmol/L A-a O2 Difference 163.0 mm/Hg Sodium 126.0 L 124.0 L (132-148) mmol/L Chloride 92.0 L 90.0 L (98-107) mmol/L Glucose 140 H 146 H (75-110) mg/dL Lactate 1.8 2.0 (0.7-2.1) mmol/L FiO2 50.0 50.0 % Potassium (3.6-5.0) MMOL/L Carbon Dioxide (22-30) mmol/L Anion Gap (10-20) BUN (9-20) mg/dl Creatinine (0.8-1.5) mg/dl Est GFR ( Amer) Est GFR (Non-Af Amer) Random Glucose (75-110) mg/dL Serum Osmolality 274 (272-300) mosm/kg Calcium (8.4-10.2) mg/dL Total Bilirubin (0.2-1.3) mg/dl AST (17-59) U/L ALT (21-72) U/L Alkaline Phosphatase (38-126) U/L Total Protein (6.3-8.2) G/DL Albumin (3.5-5.0) g/dL Globulin (2.2-3.9) gm/dL Albumin/Globulin Ratio (1.0-2.1) Arterial Blood Potassium 3.3 L (3.6-5.2) mmol/L Venous Blood Potassium 3.3 L (3.6-5.2) mmol/L Urine Osmolality (300-1000) mosm/kg Ur Random Sodium meq/L Ur Random Potassium mmol/L Laboratory Results - last 24 hr 03/27/18 03/27/18 03/28/18 12:00 13:55 05:10 WBC RBC Hgb Hct MCV MCH MCHC RDW Plt Count MPV Neut % (Auto) Lymph % (Auto) [place] % (Auto) Eos % (Auto) Baso % (Auto) Neut # (Auto) Lymph # (Auto) [place] # (Auto) Eos # (Auto) Baso # (Auto) pCO2 37 pO2 52 147 H HCO3 31.1 H ABG pH 7.53 H ABG Total CO2 32.0 H ABG O2 Saturation 100.0 H ABG Base Excess 7.8 H Chris Test Yes ABG Potassium 3.3 L VBG pH 7.45 H VBG pCO2 49 VBG HCO3 31.4 VBG Total CO2 35.6 H VBG O2 Sat (Calc) 79.7 H VBG Base Excess 8.6 H VBG Potassium 3.3 L A-a O2 Difference 163.0 Sodium 124.0 L 126.0 L Chloride 90.0 L 92.0 L Glucose 146 H 140 H Lactate 2.0 1.8 FiO2 50.0 50.0 Potassium Carbon Dioxide Anion Gap BUN Creatinine Est GFR ( Amer) Est GFR (Non-Af Amer) Random Glucose Serum Osmolality 274 Calcium Total Bilirubin AST ALT Alkaline Phosphatase Total Protein Albumin Globulin Albumin/Globulin Ratio Arterial Blood Potassium 3.3 L Venous Blood Potassium 3.3 L Urine Osmolality Ur Random Sodium Ur Random Potassium 03/28/18 03/28/18 03/28/18 05:10 05:10 06:32 WBC 5.4 RBC 3.33 L Hgb 10.3 L Hct 30.7 L MCV 92.2 MCH 30.8 MCHC 33.4 RDW 19.8 H Plt Count 239 MPV 9.2 Neut % (Auto) 59.9 Lymph % (Auto) 29.4 [place] % (Auto) 8.3 Eos % (Auto) 1.8 Baso % (Auto) 0.6 Neut # (Auto) 3.2 Lymph # (Auto) 1.6 [place] # (Auto) 0.4 Eos # (Auto) 0.1 Baso # (Auto) 0.0 pCO2 pO2 HCO3 ABG pH ABG Total CO2 ABG O2 Saturation ABG Base Excess Chris Test ABG Potassium VBG pH VBG pCO2 VBG HCO3 VBG Total CO2 VBG O2 Sat (Calc) VBG Base Excess VBG Potassium A-a O2 Difference Sodium 132 Chloride 90 L Glucose Lactate FiO2 Potassium 3.5 L Carbon Dioxide 31 H Anion Gap 15 BUN 15 Creatinine 0.5 L Est GFR ( Amer) > 60 Est GFR (Non-Af Amer) > 60 Random Glucose 78 Serum Osmolality Calcium 8.4 Total Bilirubin 3.4 H AST 50 ALT 43 Alkaline Phosphatase 79 Total Protein 6.4 Albumin 3.2 L Globulin 3.2 Albumin/Globulin Ratio 1.0 Arterial Blood Potassium Venous Blood Potassium Urine Osmolality 697 Ur Random Sodium 90 Ur Random Potassium 78.7 Fingerstick Blood Sugar Results: 88 Review of Systems - Review of Systems All systems: reviewed and no additional remarkable complaints except Critical Care Progress Note - Nutrition Nutrition: Nutrition Category Date Time Status Dysphagia/Modified Consistency Diet [DIET] Diets 03/28/18 Breakfast Active Assessment/Plan - Assessment and Plan (Free Text) Assessment: 77 yo male with PMHx CVA, hepatitis A & B, CHF, AICD, COPD, senior living resident, mild to moderate dementia. Pt was admitted to telemetry on 03/12 for AMS, weakness, jaundice. 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 Pt was subsequently intubated and admitted to ICU on 03/16 for acute respiratory failure. Pt was briefly extubated and re-intubated on 03/21/18 due to respiratory distress. Chest CT on 03/24/18 shows b/l pleural effusion with compressive atelectasis B/L. Pt had thoracentesis of right pleural effusion and drained 1250 cc of yellow fluids and thoracentesis of left pleural effusion with drainage of 400 cc. Pt was extubated yesterday, has non-labored breathing with 3 L NC oxygen. Neuro: awake and alert but still confused. Pulmonary: -Supervisor [employer] Dr. Mueller on board -Acute respiratory failure s/p intubation on 03/16/18 to 03/27/18, and extubated yesterday -S/P B/L throacentesis -AM CXR: no pneumothorax. Has rounded opacity on right middle/low lung zone. -Blood cx on 03/24/18 shows gram positive cocci. -Continue on vancomycin 750 mg ivp q12 and zosyn 3.375 g ivp q6h this morning. -Received micofungin 100 mg IVP Q24 hrs from 03/21 to 03/24. -Blood cx, urine cx and sputum cx again ordered yesterday: no growth so far. Cardiovascular: -Pump House Engineer Dr. Peralta on board -CHF: proBNP [id number] on 03/22/18, echocardiogram on 02/10/18: EF 20-25% -Hypotension: improved, has MAP>65 without levophed and milrinone since last night. GI: -GI on board -Stable H&H -Continue protonix 40 mg IV q12h for possible bleeding ulcer. -Transaminitis resolved -CT of abdomen and pelvis on 03/12/18 shows moderate abdomen and pelvis ascites. Renal: -Strict monitor of Intake and output -Hypokalemia: K 3.5 this AM. give 40 KCl PO. f/u CMP. Hematology: -INR 1.4 Monitor coag. -Thrombocytopenis: resolved (platelet 239 today) ID: -Bacteremia (blood cx on 03/24/18 shows gram positive cocci) -Continue on vancomycin 750 mg ivp q12 and zosyn 3.375 g ivp q6hr -Sputum cx, urine cx and blood cx yesterday: no growth so far. DVT prophylaxis - SCD's, SQ heparin GI prophylaxis - protonix IV q12h Code status - full code <Miquel Barnard - Last Filed: 03/28/18 17:34> CCU Subjective - Physician Review Subjective (Free Text): Attestation: Patient seen and examined at the bedside with Resident Dr. Darell Lowry; and I agree with his outline of plans and management documented below as discussed on AM rounds reflecting my review of all applicable clinical data, and participation in the care of the patient throughout the day in ICU; today, March 28, 2018.
[2018-03-28] MEDS ORDERED: Potassium Chloride 20 mEq/15 ml LIQ UD PO ONE (13:00)
--- NOTE | 2018-03-28 14:09 | CP.PCM.PN ---
Subjective - Date & Time of Evaluation Date of Evaluation: 03/28/18 Time of Evaluation: 14:00 - Subjective Subjective: F/U Respiratory Failure. awake, confused, follows simple commands Objective - Vital Signs/Intake and Output Vital Signs (last 24 hours): Temp Pulse Resp BP Pulse Ox 98.9 F 119 H 16 96/63 L 100 03/28/18 12:00 03/28/18 12:00 03/28/18 12:00 03/28/18 12:00 03/28/18 12:00 Intake and Output: 03/28/18 03/28/18 06:59 18:59 Intake Total 450 350 Output Total 320 50 Balance 130 300 - Medications Medications: Current Medications Acetaminophen (Tylenol 325mg Tab) 650 mg PO Q4 PRN PRN Reason: Pain, Mild (1-3) Last Admin: 03/24/18 21:00 Dose: 650 mg Acetaminophen (Tylenol 650 Mg Supp) 650 mg AR Q6 PRN PRN Reason: Fever >100.4 F Last Admin: 03/27/18 15:23 Dose: 650 mg Acetaminophen (Tylenol 650 Mg Supp) 650 mg AR ONCE PRN PRN Reason: Fever >100.4 F Albuterol/Ipratropium (Duoneb 3 Mg/0.5 Mg (3 Ml) Ud) 3 ml INH RQ4 EUGENIO Last Admin: 03/28/18 11:46 Dose: 3 ml Bisacodyl (Dulcolax) 10 mg AR DAILY PRN PRN Reason: No bowel movement x3days Last Admin: 03/27/18 09:01 Dose: 10 mg Heparin Sodium (Porcine) (Heparin) 5,000 units SC Q12 EUGENIO PRN Reason: Protocol Last Admin: 03/28/18 09:24 Dose: 5,000 units Vancomycin HCl 750 mg/ Sodium (Chloride) 250 mls @ 166.667 mls/hr IVPB Q12 EUGENIO PRN Reason: Protocol Last Admin: 03/28/18 10:16 Dose: 166.667 mls/hr Norepinephrine Bitartrate 8 mg (/ Dextrose) 258 mls @ 9.67 mls/hr IV .Q24H EUGENIO ; 5 MCG/MIN PRN Reason: Protocol Last Titration: 03/27/18 18:16 Dose: 0 mcg/min, 0 mls/hr Magnesium Hydroxide (Milk Of Magnesia) 30 ml PO HS PRN PRN Reason: No bowel movement x2 days Morphine Sulfate (Morphine) 3 mg IVP Q4 PRN PRN Reason: Agitation Last Admin: 03/26/18 16:05 Dose: 3 mg Oxymetazoline HCl (Nasal Decongestant 15 Ml) 1 spr NS Q12 PRN PRN Reason: Nasal congestion Last Admin: 03/16/18 16:47 Dose: 1 spr Pantoprazole Sodium (Protonix Inj) 40 mg IVP Q12 EUGENIO Last Admin: 03/28/18 09:25 Dose: 40 mg - Labs Labs: 03/28/18 05:10 03/28/18 05:10 PT 16.1 Seconds (9.8-13.1) H 03/25/18 05:00 INR 1.4 03/25/18 05:00 APTT 33.3 Seconds (25.6-37.1) 03/25/18 05:00 - Constitutional Appears: Chronically Ill - Head Exam Head Exam: NORMAL INSPECTION - Eye Exam Eye Exam: PERRL - ENT Exam ENT Exam: Normal Exam - Neck Exam Neck Exam: Normal Inspection - Respiratory Exam Respiratory Exam: Decreased Breath Sounds (mild at bases), Rhonchi (scattered) - Cardiovascular Exam Cardiovascular Exam: REGULAR RHYTHM Additional comments: PPM - GI/Abdominal Exam GI & Abdominal Exam: Soft, Normal Bowel Sounds - Extremities Exam Additional comments: Edema upper extremities. R-L TKR - Neurological Exam Neurological Exam: Alert, Awake Additional comments: Follows simple commands, generalized weakness - Psychiatric Exam Additional comments: confused - Skin Skin Exam: Warm Additional comments: Jaundice. Assessment and Plan (1) Acute respiratory failure Status: Resolved (2) CHF (congestive heart failure) Status: Chronic (3) Altered mental status Status: Acute (4) UTI (urinary tract infection) Status: Resolved (5) Difficulty with speech Status: Chronic (6) History of permanent cardiac pacemaker placement Status: Chronic (7) CAD (coronary artery disease) Status: Chronic (8) Generalized weakness Status: Chronic (9) Anxiety Status: Chronic (10) Jaundice Status: Acute (11) Bleeding Status: Resolved - Assessment and Plan (Free Text) Plan: off Levophed, Primacor, continue, DuoNeb, Vanco, and rest of treatment , transaminitis resolved , T Bili 3.4, GI bleeding resolved , Hgb 10.4 , on Protonix Critical carer time: 35 minutes.
[2018-03-28 17:02] LABS: VENOUS BLOOD GAS BASE EXCESS -2.7 mmol/L (0.0-2.0); VENOUS BLOOD GAS PCO2 30 mmHg (40-60); VENOUS BLOOD GAS PO2 43 mm/Hg (30-55); VENOUS BLOOD PH 7.44 (7.32-7.43)
[2018-03-28] MEDS ORDERED: Potassium Chloride 20 mEq/15 ml LIQ UD PO STA (17:05)
[2018-03-28] MEDS: DOBUTamine 500mg/250ml D5W 500 MG/250 ML BAG IV SCH (17:43)
[2018-03-28] MEDS: Potassium CL 10 MEQ/50 ML 50 ML IVPB SCH ×4 (17:52→23:11)
[2018-03-29] MEDS: Potassium CL 10 MEQ/50 ML 50 ML IVPB SCH ×2 (00:23→02:03)
[2018-03-29 00:50] LABS: VENOUS BLOOD GAS PCO2 45 mmHg (40-60); VENOUS BLOOD GAS PO2 39 mm/Hg (30-55); VENOUS BLOOD PH 7.42 (7.32-7.43)
[2018-03-29] MEDS: Albuterol-Ipratrop 3 mg / 0.5 (3 ml) UD INH SCH ×6 (00:57→19:53)
[2018-03-29 01:29] LABS: BLOOD UREA NITROGEN 18 mg/dl (9-20); CALCIUM 8.3 mg/dL (8.4-10.2); GFR AFRICAN-AMERICAN > 60; GFR NON-AFRICAN AMERICAN > 60
[2018-03-29 07:21] LABS: HEMOGLOBIN 10.5 g/dL (12.0-18.0); MEAN CELL VOLUME 93.3 fl (80.0-94.0); MEAN CORPUSCULAR HEMOGLOBIN 31.3 pg (27.0-31.0); MEAN CORPUSCULAR HGB CONC 33.6 g/dL (33.0-37.0); RBC 3.34 Mil/uL (4.40-5.90); RED CELL DISTRIBUTION WIDTH 20.3 % (11.5-14.5); WHITE BLOOD COUNT 7.3 K/uL (4.8-10.8)
[2018-03-29 07:47] LABS: BLOOD UREA NITROGEN 20 mg/dl (9-20); CALCIUM 8.6 mg/dL (8.4-10.2); GFR AFRICAN-AMERICAN > 60; GFR NON-AFRICAN AMERICAN > 60
[2018-03-29] MEDS ORDERED: Chlorhexidine Gluconate 1 APPL/PKT TP ONE (08:08)
[2018-03-29] MEDS ORDERED: Digoxin 500 mcg/2ml (0.5 mg/2ml) Inj ONE (11:21)
[2018-03-29] MEDS: DOBUTamine 500mg/250ml D5W 500 MG/250 ML BAG IV SCH (13:17)
--- NOTE | 2018-03-29 13:24 | CP.CCUPN ---
CCU Subjective - Physician Review Events Since Last Encounter (Free Text): 03/29/18 13:22 Confused and non communicating, on levophed and dobutamine, Keeping <AP > 65%, on 3 L n/c. Ox sat 100%. CCU Objective - Vital Signs / Intake & Output Vital Signs (Last 4 hours): Vital Signs Temp Pulse Resp BP Pulse Ox 03/29/18 13:17 123 H 03/29/18 12:00 97.8 F 123 H 32 H 95/71 L 100 03/29/18 11:00 122 H 32 H 91/69 L 100 03/29/18 10:00 122 H 28 H 81/63 L 100 Intake and Output (Last 8hrs): Intake & Output 03/28/18 03/29/18 03/29/18 22:59 06:59 14:59 Intake Total 376 148 442 Output Total 90 120 Balance 286 28 442 Weight 191 lb Intake: IV 26 148 192 Intake, Piggyback 150 250 Oral 200 0 Output: Urine 90 120 Urethral (Chen) 90 120 Other: # Bowel Movements 1 - Physical Exam Narrative Physical Exam (Free Text): 03/29/18 13:23 P/E Neck: No JVD Lungs: Rt basal crackles heart: No gallop Abdomen: non-tender Ext:=1 edema Neuro: confused, no-focal deficit Head: Positive for: Atraumatic, Other (Jaundiced) Pupils: Positive for: PERRL Extroacular Muscles: Positive for: EOMI Conjunctiva: Positive for: Normal Mouth: Positive for: Other (Intubated) Pharnyx: Negative for: ERYTHEMA Neck: Positive for: Trachea Midline. Negative for: Meningeal Signs, MIDLINE TENDERNESS Respiratory/Chest: Positive for: Clear to Auscultation, Good Air Exchange. Negative for: Wheezes, Rales Cardiovascular: Positive for: Regular Rate and Rhythm, Normal S1, S2, Peripheal Pulses Present, Tachycardic Abdomen: Positive for: Normal Bowel Sounds. Negative for: Tenderness, Distention, Peritoneal Signs Upper Extremity: Positive for: Edema (minimal now. significant improvement from yesterday.) Lower Extremity: Negative for: Edema Neurological: Positive for: Other (awake and alert, responds of simple questions.) Skin: Positive for: Other Psychiatric: Positive for: Alert. Negative for: Oriented x 3 - Medications Active Medications: Active Medications Generic Name Dose Route Start Last Admin Trade Name Freq PRN Reason Stop Dose Admin Acetaminophen 650 mg 03/13/18 01:35 03/24/18 21:00 Tylenol 325mg Tab PO 650 mg Q4 PRN Administration Pain, Mild (1-3) Acetaminophen 650 mg 03/25/18 23:46 03/27/18 15:23 Tylenol 650 Mg Supp IL 650 mg Q6 PRN Administration Fever >100.4 F Acetaminophen 650 mg 03/27/18 15:04 Tylenol 650 Mg Supp IL ONCE PRN Fever >100.4 F Albuterol/Ipratropium 3 ml 03/26/18 20:00 03/29/18 12:50 Duoneb 3 Mg/0.5 Mg (3 Ml) Ud INH 3 ml RQ4 EUGENIO Administration Bisacodyl 10 mg 03/13/18 01:35 03/27/18 09:01 Dulcolax IL 10 mg DAILY PRN Administration No bowel movement x3days Heparin Sodium (Porcine) 5,000 units 03/25/18 09:00 03/29/18 08:50 Heparin SC 5,000 units Q12 EUGENIO Administration Protocol Vancomycin HCl 750 mg/ Sodium 250 mls @ 166.667 mls/hr 03/27/18 21:00 08:50 Chloride IVPB 166.667 mls/hr Q12 EUGENIO Administration Protocol Dobutamine HCl/Dextrose 500 mg in 250 mls @ 12.995 mls/hr 03/28/18 17:15 07/06 13:17 Dobutamine/Dextrose 5% 500mg/250ml IV 12.995 mls/hr .[id number] EUGENIO Administration 5 MCG/KG/MIN Norepinephrine Bitartrate 8 mg 258 mls @ 4.83 mls/hr 03/28/18 22:04 03/29/18 04:04 / Dextrose IV 03/29/18 22:03 7.5 mcg/min .Q24H ONE 14.51 mls/hr Protocol Titration 2.5 MCG/MIN Magnesium Hydroxide 30 ml 03/13/18 01:35 Milk Of Magnesia PO HS PRN No bowel movement x2 days Morphine Sulfate 3 mg 03/26/18 10:39 03/26/18 16:05 Morphine IVP 3 mg Q4 PRN Administration Agitation Oxymetazoline HCl 1 spr 03/16/18 16:36 03/16/18 16:47 Nasal Decongestant 15 Ml NS 1 spr Q12 PRN Administration Nasal congestion Pantoprazole Sodium 40 mg 03/18/18 21:00 03/29/18 08:50 Protonix Inj IVP 40 mg Q12 EUGENIO Administration - Patient Studies Lab Studies: Microbiology Studies 03/27/18 12:16 Blood Culture - Preliminary Blood-Thru Central Line NO GROWTH AFTER 48 HOURS 03/27/18 12:16 Blood Culture - Preliminary Blood-Venous NO GROWTH AFTER 48 HOURS 03/27/18 13:00 Gram Stain - Final Trachasp 03/24/18 21:15 Blood Culture - Preliminary Blood-Thru Central Line NO GROWTH AFTER 4 DAYS 03/27/18 13:00 Urine Culture - Final Urine,Chen No Growth (<1,000 CFU/ML) Lab Studies 03/29/18 03/29/18 03/29/18 Range/Units 07:14 07:14 01:07 WBC 7.3 (4.8-10.8) K/uL RBC 3.34 L (4.40-5.90) Mil/uL Hgb 10.5 L (12.0-18.0) g/dL Hct 31.1 L (35.0-51.0) % MCV 93.3 (80.0-94.0) fl MCH 31.3 H (27.0-31.0) pg MCHC 33.6 (33.0-37.0) g/dL RDW 20.3 H (11.5-14.5) % Plt Count 307 (130-400) K/uL pO2 (30-55) mm/Hg VBG pH (7.32-7.43) VBG pCO2 (40-60) mmHg VBG HCO3 mmol/L VBG Total CO2 (22-28) mmol/L VBG O2 Sat (Calc) (40-65) % VBG Base Excess (0.0-2.0) mmol/L VBG Potassium (3.6-5.2) mmol/L Sodium 133 132 (132-148) mmol/L Chloride 94 L 93 L (98-107) mmol/L Glucose (75-110) mg/dL Lactate (0.7-2.1) mmol/L FiO2 % Crit Value Called To Crit Value Called By Crit Value Read Back Blood Gas Notified Time Potassium 5.2 H 4.7 (3.6-5.0) MMOL/L Carbon Dioxide 23 27 (22-30) mmol/L Anion Gap 21 H 17 (10-20) BUN 20 18 (9-20) mg/dl Creatinine 0.8 0.6 L (0.8-1.5) mg/dl Est GFR ( Amer) > 60 > 60 Est GFR (Non-Af Amer) > 60 > 60 Random Glucose 94 100 (75-110) mg/dL Calcium 8.6 8.3 L (8.4-10.2) mg/dL Venous Blood Potassium (3.6-5.2) mmol/L 03/28/18 03/28/18 Range/Units 16:58 00:47 WBC (4.8-10.8) K/uL RBC (4.40-5.90) Mil/uL Hgb (12.0-18.0) g/dL Hct (35.0-51.0) % MCV (80.0-94.0) fl MCH (27.0-31.0) pg MCHC (33.0-37.0) g/dL RDW (11.5-14.5) % Plt Count (130-400) K/uL pO2 43 39 (30-55) mm/Hg VBG pH 7.44 H 7.42 (7.32-7.43) VBG pCO2 30 L 45 (40-60) mmHg VBG HCO3 22.4 27.4 mmol/L VBG Total CO2 21.3 L 30.6 H (22-28) mmol/L VBG O2 Sat (Calc) 52.4 36.7 L (40-65) % VBG Base Excess -2.7 L 4.0 H (0.0-2.0) mmol/L VBG Potassium 2.4 L* 4.5 (3.6-5.2) mmol/L Sodium 135.0 129.0 L (132-148) mmol/L Chloride 108.0 H 94.0 L (98-107) mmol/L Glucose 74 L 102 (75-110) mg/dL Lactate 2.1 3.3 H (0.7-2.1) mmol/L FiO2 28.0 21.0 % Crit Value Called To Honey moore rn Crit Value Called By 333 Crit Value Read Back Y Blood Gas Notified Time 1700 Potassium (3.6-5.0) MMOL/L Carbon Dioxide (22-30) mmol/L Anion Gap (10-20) BUN (9-20) mg/dl Creatinine (0.8-1.5) mg/dl Est GFR ( Amer) Est GFR (Non-Af Amer) Random Glucose (75-110) mg/dL Calcium (8.4-10.2) mg/dL Venous Blood Potassium 2.4 L* 4.5 (3.6-5.2) mmol/L Laboratory Results - last 24 hr 03/28/18 03/28/18 03/29/18 00:47 16:58 01:07 WBC RBC Hgb Hct MCV MCH MCHC RDW Plt Count pO2 39 43 VBG pH 7.42 7.44 H VBG pCO2 45 30 L VBG HCO3 27.4 22.4 VBG Total CO2 30.6 H 21.3 L VBG O2 Sat (Calc) 36.7 L 52.4 VBG Base Excess 4.0 H -2.7 L VBG Potassium 4.5 2.4 L* Sodium 129.0 L 135.0 132 Chloride 94.0 L 108.0 H 93 L Glucose 102 74 L Lactate 3.3 H 2.1 FiO2 21.0 28.0 Crit Value Called To Honey moore rn Crit Value Called By 333 Crit Value Read Back Y Blood Gas Notified Time 1700 Potassium 4.7 Carbon Dioxide 27 Anion Gap 17 BUN 18 Creatinine 0.6 L Est GFR ( Amer) > 60 Est GFR (Non-Af Amer) > 60 Random Glucose 100 Calcium 8.3 L Venous Blood Potassium 4.5 2.4 L* 03/29/18 03/29/18 07:14 07:14 WBC 7.3 RBC 3.34 L Hgb 10.5 L Hct 31.1 L MCV 93.3 MCH 31.3 H MCHC 33.6 RDW 20.3 H Plt Count 307 pO2 VBG pH VBG pCO2 VBG HCO3 VBG Total CO2 VBG O2 Sat (Calc) VBG Base Excess VBG Potassium Sodium 133 Chloride 94 L Glucose Lactate FiO2 Crit Value Called To Crit Value Called By Crit Value Read Back Blood Gas Notified Time Potassium 5.2 H Carbon Dioxide 23 Anion Gap 21 H BUN 20 Creatinine 0.8 Est GFR ( Amer) > 60 Est GFR (Non-Af Amer) > 60 Random Glucose 94 Calcium 8.6 Venous Blood Potassium Fingerstick Blood Sugar Results: 88 Critical Care Progress Note - Nutrition Nutrition: Nutrition Category Date Time Status Dysphagia/Modified Consistency Diet [DIET] Diets 03/28/18 Breakfast Active Assessment/Plan - Assessment and Plan (Free Text) Assessment: Resp Failure: improved: was intubated, extubated, re-intubated and extubated. --S/P B/L throacentesis -AM CXR: no pneumothorax. Has rounded opacity on right middle/low lung zone. -Blood cx positive for gram positive cocci. -on vancomycin -Received micofungin 100 mg IVP Q24 hrs from 03/21 to 03/24. Cardiomyopathy: CHF -On Dobutamine and Levophed, -echocardiogram on 02/10/18: EF 20-25% -Hypotension: improved, has MAP>65 on dobutamine and Levophed GI: -GI on board -Stable H&H -Continue protonix 40 mg IV q12h for possible bleeding ulcer. -Transaminitis resolved -CT of abdomen and pelvis on 03/12/18 shows moderate abdomen and pelvis ascites. Thrombocytopenia -INR 1.4 Monitor coag. -Thrombocytopenis: resolved (platelet 239 today) Bacteremia -Bacteremia (blood cx on 03/24/18 shows gram positive cocci) -Continue on vancomycin -Sputum cx, urine cx and blood cx yesterday: no growth so far. DVT prophylaxis - SCD's, SQ heparin GI prophylaxis - protonix IV q12h Code status - full code
--- NOTE | 2018-03-29 19:32 | CP.PCM.PN ---
Subjective - Date & Time of Evaluation Date of Evaluation: 03/29/18 Time of Evaluation: 10:50 - Subjective Subjective: . Lethargic, arousable, mumbling sounds, not following commands Objective - Vital Signs/Intake and Output Vital Signs (last 24 hours): Temp Pulse Resp BP Pulse Ox 98 F 123 H 30 H 87/55 L 100 03/29/18 16:00 03/29/18 18:00 03/29/18 18:00 03/29/18 18:00 03/29/18 18:00 Intake and Output: 03/29/18 03/30/18 18:59 06:59 Intake Total 844 Output Total 250 Balance 594 - Medications Medications: Current Medications Acetaminophen (Tylenol 325mg Tab) 650 mg PO Q4 PRN PRN Reason: Pain, Mild (1-3) Last Admin: 03/24/18 21:00 Dose: 650 mg Acetaminophen (Tylenol 650 Mg Supp) 650 mg WA Q6 PRN PRN Reason: Fever >100.4 F Last Admin: 03/27/18 15:23 Dose: 650 mg Acetaminophen (Tylenol 650 Mg Supp) 650 mg WA ONCE PRN PRN Reason: Fever >100.4 F Albuterol/Ipratropium (Duoneb 3 Mg/0.5 Mg (3 Ml) Ud) 3 ml INH RQ4 EUGENIO Last Admin: 03/29/18 16:00 Dose: 3 ml Bisacodyl (Dulcolax) 10 mg WA DAILY PRN PRN Reason: No bowel movement x3days Last Admin: 03/27/18 09:01 Dose: 10 mg Heparin Sodium (Porcine) (Heparin) 5,000 units SC Q12 EUGENIO PRN Reason: Protocol Last Admin: 03/29/18 08:50 Dose: 5,000 units Vancomycin HCl 750 mg/ Sodium (Chloride) 250 mls @ 166.667 mls/hr IVPB Q12 EUGENIO PRN Reason: Protocol Last Admin: 03/29/18 08:50 Dose: 166.667 mls/hr Dobutamine HCl/Dextrose (Dobutamine/Dextrose 5% 500mg/250ml) 500 mg in 250 mls @ 12.995 mls/hr IV .[id number] EUGENIO PRN Reason: 5 MCG/KG/MIN Last Admin: 03/29/18 13:17 Dose: 12.995 mls/hr Norepinephrine Bitartrate 8 mg (/ Dextrose) 258 mls @ 4.83 mls/hr IV .Q24H ONE ; 2.5 MCG/MIN PRN Reason: Protocol Stop: 03/29/18 22:03 Last Admin: 03/29/18 13:26 Dose: 7.5 mcg/min, 14.51 mls/hr Magnesium Hydroxide (Milk Of Magnesia) 30 ml PO HS PRN PRN Reason: No bowel movement x2 days Morphine Sulfate (Morphine) 3 mg IVP Q4 PRN PRN Reason: Agitation Last Admin: 03/26/18 16:05 Dose: 3 mg Oxymetazoline HCl (Nasal Decongestant 15 Ml) 1 spr NS Q12 PRN PRN Reason: Nasal congestion Last Admin: 03/16/18 16:47 Dose: 1 spr Pantoprazole Sodium (Protonix Inj) 40 mg IVP Q12 EUGENIO Last Admin: 03/29/18 08:50 Dose: 40 mg - Labs Labs: 03/29/18 07:14 03/29/18 07:14 PT 16.1 Seconds (9.8-13.1) H 03/25/18 05:00 INR 1.4 03/25/18 05:00 APTT 33.3 Seconds (25.6-37.1) 03/25/18 05:00 - Constitutional Appears: Chronically Ill - Head Exam Head Exam: NORMAL INSPECTION - Eye Exam Eye Exam: PERRL - ENT Exam Additional comments: Extubated - Neck Exam Neck Exam: Normal Inspection - Respiratory Exam Respiratory Exam: Decreased Breath Sounds (mild at bases), Rhonchi (scattered) - Cardiovascular Exam Cardiovascular Exam: REGULAR RHYTHM Additional comments: PPM - GI/Abdominal Exam GI & Abdominal Exam: Soft, Normal Bowel Sounds - Extremities Exam Additional comments: Edema upper extremities, R-L TKR - Neurological Exam Neurological Exam: Awake Additional comments: Lethargic, not following commands, generalized weakness. - Psychiatric Exam Additional comments: Confused - Skin Additional comments: Jaundice. Assessment and Plan (1) Acute respiratory failure Status: Resolved (2) CHF (congestive heart failure) Status: Chronic (3) Altered mental status Status: Acute (4) UTI (urinary tract infection) Status: Resolved (5) Difficulty with speech Status: Chronic (6) History of permanent cardiac pacemaker placement Status: Chronic (7) CAD (coronary artery disease) Status: Chronic (8) Generalized weakness Status: Chronic (9) Anxiety Status: Chronic (10) Jaundice Status: Acute (11) Bleeding Status: Resolved - Assessment and Plan (Free Text) Plan: Continue Dobutamine, Norepinephrine and rest of Tx. Critical care time 35 minutes.
[2018-03-29 20:22] LABS: ABG ALLEN TEST YES; ARTERIAL BLOOD GAS HCO3 25.3 mmol/L (21-28); ARTERIAL BLOOD GAS O2 SAT 99.3 % (95-98); ARTERIAL BLOOD GAS PCO2 29 mm/Hg (35-45); ARTERIAL BLOOD GAS PO2 94 mm/Hg (80-100); ARTERIAL BLOOD GAS TCO2 23.5 mmol/L (22-28)
[2018-03-29] MEDS: Morphine 4 MG/ML VIAL IVP PRN (20:36)
[2018-03-29] MEDS ORDERED: Sodium Chloride 3% for Inhalation 4 ML VIAL.NEB IH PRN (20:52)
[2018-03-29] MEDS ORDERED: Meropenem 1 GM in Sodium Chloride 0.9% 100 ML IVPB ONE (20:56)
[2018-03-30] MEDS: Albuterol-Ipratrop 3 mg / 0.5 (3 ml) UD INH SCH ×7 (00:05→23:32)
[2018-03-30 03:56] LABS: ABG ALLEN TEST YES; ARTERIAL BLOOD GAS HCO3 26.1 mmol/L (21-28); ARTERIAL BLOOD GAS O2 SAT 100.4 % (95-98); ARTERIAL BLOOD GAS PCO2 35 mm/Hg (35-45); ARTERIAL BLOOD GAS PH 7.46 (7.35-7.45); ARTERIAL BLOOD GAS PO2 122 mm/Hg (80-100)
[2018-03-30 05:00] LABS: HEMOGLOBIN 10.5 g/dL (12.0-18.0); RBC 3.4 Mil/uL (4.40-5.90); RED CELL DISTRIBUTION WIDTH 20.6 % (11.5-14.5); WHITE BLOOD COUNT 10.5 K/uL (4.8-10.8)
[2018-03-30 05:21] LABS: CALCIUM 8.6 mg/dL (8.4-10.2)
[2018-03-30] MEDS ORDERED: Midazolam 2 MG/2 ML VIAL ONE (08:23)
--- NOTE | 2018-03-30 09:00 | CP.CCUPN ---
CCU Subjective - Physician Review Events Since Last Encounter (Free Text): 03/30/18 08:54 Pt is still confused, has been tachypnic and at times restless. He pulled out his Rt IJ TLC this morning, as he is on dobutamine and Levophed drip needed a new TLC. Pt was not cooperative for IJ TLC insertion , constantly moving his neck, even after giving him 2 mg IV versed, eventually I had to insert a Rt femoral vein TLC. I spoke to pt's sister in law before putting TLC and she was OK with that. Pt has been mantaining his Ox saturation 100% on 3 LNC and this mornings ABG was also showing good o2 sat, but as pt is tachypnic, asked his sisten-in law ( who has been given permission by his to talk about ths patient ) and as per her, patient's would allow to re-intubate the patient again, if needed. Patient tolerated the procedure well, his BP ws not low, SBP was in low 90s when ws off Levophed and dobutamine. CCU Objective - Vital Signs / Intake & Output Vital Signs (Last 4 hours): Vital Signs Pulse Resp BP Pulse Ox 03/30/18 07:00 110 H 30 H 82/51 L 98 03/30/18 06:00 119 H 39 H 88/66 L 100 03/30/18 05:00 117 H 28 H 94/64 L 100 Intake and Output (Last 8hrs): Intake & Output 03/29/18 03/30/18 03/30/18 22:59 06:59 14:59 Intake Total 279 715 Output Total 275 325 Balance 4 390 Weight 193 lb Intake: IV 279 315 Intake, Piggyback 400 Oral 0 Output: Urine 275 325 Urethral (Chen) 275 325 Other: # Bowel Movements 2 1 - Physical Exam Narrative Physical Exam (Free Text): 03/30/18 09:00 P/E Neck: No JVD Lungs: Rt basal crackles Abdomen: soft, non-tender, distended Ext: +2 edema Heart: No gallop Head: Positive for: Atraumatic, Other (Jaundiced) Pupils: Positive for: PERRL Extroacular Muscles: Positive for: EOMI Conjunctiva: Positive for: Normal Mouth: Positive for: Other (Intubated) Pharnyx: Negative for: ERYTHEMA Neck: Positive for: Trachea Midline. Negative for: Meningeal Signs, MIDLINE TENDERNESS Respiratory/Chest: Positive for: Clear to Auscultation, Good Air Exchange. Negative for: Wheezes, Rales Cardiovascular: Positive for: Regular Rate and Rhythm, Normal S1, S2, Peripheal Pulses Present, Tachycardic Abdomen: Positive for: Normal Bowel Sounds. Negative for: Tenderness, Distention, Peritoneal Signs Upper Extremity: Positive for: Edema (minimal now. significant improvement from yesterday.) Lower Extremity: Negative for: Edema Neurological: Positive for: Other (awake and alert, responds of simple questions.) Skin: Positive for: Other Psychiatric: Positive for: Alert. Negative for: Oriented x 3 - Medications Active Medications: Active Medications Generic Name Dose Route Start Last Admin Trade Name Freq PRN Reason Stop Dose Admin Acetaminophen 650 mg 03/13/18 01:35 03/24/18 21:00 Tylenol 325mg Tab PO 650 mg Q4 PRN Administration Pain, Mild (1-3) Acetaminophen 650 mg 03/25/18 23:46 03/29/18 20:12 Tylenol 650 Mg Supp CO 650 mg Q6 PRN Administration Fever >100.4 F Acetaminophen 650 mg 03/27/18 15:04 Tylenol 650 Mg Supp CO ONCE PRN Fever >100.4 F Albuterol/Ipratropium 3 ml 03/26/18 20:00 03/30/18 07:18 Duoneb 3 Mg/0.5 Mg (3 Ml) Ud INH 3 ml RQ4 EUGENIO Administration Bisacodyl 10 mg 03/13/18 01:35 03/27/18 09:01 Dulcolax CO 10 mg DAILY PRN Administration No bowel movement x3days Heparin Sodium (Porcine) 5,000 units 03/25/18 09:00 03/29/18 20:20 Heparin SC 5,000 units Q12 EUGENIO Administration Protocol Vancomycin HCl 750 mg/ Sodium 250 mls @ 166.667 mls/hr 03/27/18 21:00 20:41 Chloride IVPB 166.667 mls/hr Q12 EUGENIO Administration Protocol Dobutamine HCl/Dextrose 500 mg in 250 mls @ 12.995 mls/hr 03/28/18 17:15 07/06 13:17 Dobutamine/Dextrose 5% 500mg/250ml IV 12.995 mls/hr .[id number] EUGENIO Administration 5 MCG/KG/MIN Clindamycin Phosphate 600 mg/ 54 mls @ 50 mls/hr 03/30/18 01:00 03/30/18 00: 07 Dextrose IVPB 50 mls/hr Q8 EUGENIO Administration Protocol Meropenem 1 gm/ Sodium 100 mls @ 100 mls/hr 03/30/18 09:00 Chloride IVPB Q12 EUGENIO Protocol Norepinephrine Bitartrate 8 mg 258 mls @ 38.7 mls/hr 03/30/18 02:40 03/30/18 04:40 / Dextrose IV 03/30/18 09:19 20 mcg/min .Q6H40M ONE 38.7 mls/hr Protocol Administration 20 MCG/MIN Magnesium Hydroxide 30 ml 03/13/18 01:35 Milk Of Magnesia PO HS PRN No bowel movement x2 days Morphine Sulfate 3 mg 03/26/18 10:39 03/29/18 20:36 Morphine IVP 3 mg Q4 PRN Administration Agitation Oxymetazoline HCl 1 spr 03/16/18 16:36 03/16/18 16:47 Nasal Decongestant 15 Ml NS 1 spr Q12 PRN Administration Nasal congestion Pantoprazole Sodium 40 mg 03/18/18 21:00 03/29/18 20:40 Protonix Inj IVP 40 mg Q12 EUGENIO Administration - Patient Studies Lab Studies: Microbiology Studies 03/24/18 21:15 Blood Culture - Final Blood-Thru Central Line NO GROWTH AFTER 5 DAYS Gram Stain - Final TEST NOT PERFORMED 03/27/18 13:00 Gram Stain - Final Trachasp Sputum Culture - Preliminary Gram Negative Vahid 03/27/18 12:16 Blood Culture - Preliminary Blood-Thru Central Line NO GROWTH AFTER 48 HOURS 03/27/18 12:16 Blood Culture - Preliminary Blood-Venous NO GROWTH AFTER 48 HOURS Lab Studies 03/30/18 03/30/18 03/30/18 Range/Units 04:25 04:25 03:50 WBC 10.5 (4.8-10.8) K/uL RBC 3.40 L (4.40-5.90) Mil/uL Hgb 10.5 L (12.0-18.0) g/dL Hct 32.0 L (35.0-51.0) % MCV 94.0 (80.0-94.0) fl MCH 31.0 (27.0-31.0) pg MCHC 33.0 (33.0-37.0) g/dL RDW 20.6 H (11.5-14.5) % Plt Count 332 (130-400) K/uL pCO2 35 (35-45) mm/Hg pO2 122 H (80-100) mm/Hg HCO3 26.1 (21-28) mmol/L ABG pH 7.46 H (7.35-7.45) ABG Total CO2 26.0 (22-28) mmol/L ABG O2 Saturation 100.4 H (95-98) % ABG Base Excess 1.4 (-2.0-3.0) mmol/L Chris Test Yes ABG Potassium 4.8 (3.6-5.2) mmol/L A-a O2 Difference 91.0 mm/Hg Sodium 130 L 128.0 L (132-148) mmol/L Chloride 96 L 95.0 L (98-107) mmol/L Glucose 134 H (75-110) mg/dL Lactate 3.1 H (0.7-2.1) mmol/L FiO2 36.0 % Crit Value Called To Crit Value Called By Crit Value Read Back Blood Gas Notified Time Potassium 5.4 H (3.6-5.0) MMOL/L Carbon Dioxide 24 (22-30) mmol/L Anion Gap 15 (10-20) BUN 27 H (9-20) mg/dl Creatinine 1.4 (0.8-1.5) mg/dl Est GFR ( Amer) 59 Est GFR (Non-Af Amer) 49 Random Glucose 126 H (75-110) mg/dL Calcium 8.6 (8.4-10.2) mg/dL Arterial Blood Potassium 4.8 (3.6-5.2) mmol/L 03/29/18 Range/Units 20:18 WBC (4.8-10.8) K/uL RBC (4.40-5.90) Mil/uL Hgb (12.0-18.0) g/dL Hct (35.0-51.0) % MCV (80.0-94.0) fl MCH (27.0-31.0) pg MCHC (33.0-37.0) g/dL RDW (11.5-14.5) % Plt Count (130-400) K/uL pCO2 29 L (35-45) mm/Hg pO2 94 (80-100) mm/Hg HCO3 25.3 (21-28) mmol/L ABG pH 7.50 H (7.35-7.45) ABG Total CO2 23.5 (22-28) mmol/L ABG O2 Saturation 99.3 H (95-98) % ABG Base Excess 0.4 (-2.0-3.0) mmol/L Chris Test Yes ABG Potassium 5.1 (3.6-5.2) mmol/L A-a O2 Difference 155.0 mm/Hg Sodium 126.0 L (132-148) mmol/L Chloride 95.0 L (98-107) mmol/L Glucose 108 (75-110) mg/dL Lactate 4.7 H* (0.7-2.1) mmol/L FiO2 40.0 % Crit Value Called To Jeri stephens md Crit Value Called By 302 Crit Value Read Back Y Blood Gas Notified Time 2022 Potassium (3.6-5.0) MMOL/L Carbon Dioxide (22-30) mmol/L Anion Gap (10-20) BUN (9-20) mg/dl Creatinine (0.8-1.5) mg/dl Est GFR ( Amer) Est GFR (Non-Af Amer) Random Glucose (75-110) mg/dL Calcium (8.4-10.2) mg/dL Arterial Blood Potassium 5.1 (3.6-5.2) mmol/L Laboratory Results - last 24 hr 03/29/18 03/30/18 03/30/18 20:18 03:50 04:25 WBC 10.5 RBC 3.40 L Hgb 10.5 L Hct 32.0 L MCV 94.0 MCH 31.0 MCHC 33.0 RDW 20.6 H Plt Count 332 pCO2 29 L 35 pO2 94 122 H HCO3 25.3 26.1 ABG pH 7.50 H 7.46 H ABG Total CO2 23.5 26.0 ABG O2 Saturation 99.3 H 100.4 H ABG Base Excess 0.4 1.4 Chris Test Yes Yes ABG Potassium 5.1 4.8 A-a O2 Difference 155.0 91.0 Sodium 126.0 L 128.0 L Chloride 95.0 L 95.0 L Glucose 108 134 H Lactate 4.7 H* 3.1 H FiO2 40.0 36.0 Crit Value Called To Jeri stephens md Crit Value Called By 302 Crit Value Read Back Y Blood Gas Notified Time 2022 Potassium Carbon Dioxide Anion Gap BUN Creatinine Est GFR ( Amer) Est GFR (Non-Af Amer) Random Glucose Calcium Arterial Blood Potassium 5.1 4.8 03/30/18 04:25 WBC RBC Hgb Hct MCV MCH MCHC RDW Plt Count pCO2 pO2 HCO3 ABG pH ABG Total CO2 ABG O2 Saturation ABG Base Excess Chris Test ABG Potassium A-a O2 Difference Sodium 130 L Chloride 96 L Glucose Lactate FiO2 Crit Value Called To Crit Value Called By Crit Value Read Back Blood Gas Notified Time Potassium 5.4 H Carbon Dioxide 24 Anion Gap 15 BUN 27 H Creatinine 1.4 Est GFR ( Amer) 59 Est GFR (Non-Af Amer) 49 Random Glucose 126 H Calcium 8.6 Arterial Blood Potassium Fingerstick Blood Sugar Results: 88 Critical Care Progress Note - Nutrition Nutrition: Nutrition Category Date Time Status Dysphagia/Modified Consistency Diet [DIET] Diets 03/28/18 Breakfast Active Assessment/Plan - Assessment and Plan (Free Text) Assessment: Resp Failure: still tachypnic but maintaining oxygen saturation 100% on 3 L NC: was intubated, extubated, re-intubated and extubated., no need for intubation now, --S/P B/L throacentesis -AM CXR: no pneumothorax. Has rounded opacity on right middle/low lung zone. -Blood cx positive for gram positive cocci. -on vancomycin , also on clinda nd meropenum, ID following -Received micofungin 100 mg IVP Q24 hrs from 03/21 to 03/24. Cardiomyopathy: CHF CXR from today 03/30, reviewed, has pulm edema -On Dobutamine and Levophed, -echocardiogram on 02/10/18: EF 20-25% -Hypotension: improved, has MAP>65 on dobutamine and Levophed More pulm congestion, will increase lasix to 40 mg Iv q 12 H JESUS: Now creatinine is slightly high 1.5 and K is also slightly high, Cardio-renal syndrome and low BP is the cause, Will monitor,K is expected to improve with higher dose of lasix GI: -GI on board -Stable H&H -Continue protonix 40 mg IV q12h for possible bleeding ulcer. -Transaminitis resolved -CT of abdomen and pelvis on 03/12/18 shows moderate abdomen and pelvis ascites. Thrombocytopenia -INR 1.4 Monitor coag. -Thrombocytopenis: resolved (platelet 239 today) Bacteremia -Bacteremia (blood cx on 03/24/18 shows gram positive cocci) -Continue on vancomycin -Sputum cx, urine cx and blood cx yesterday: no growth so far. DVT prophylaxis - SCD's, SQ heparin GI prophylaxis - protonix IV q12h Code status - full code
--- NOTE | 2018-03-30 09:10 | PCM.PROC ---
Procedures Attestation:: I certify that I have explained the specified Operation(s) or Procedure(s), risks, benefits and reasonable alternatives to the Patient and/or other person responsible. The opportunity was given to ask questions and all questions answered - Central Line Placement Right Femoral Triple Lumen Catheter CVP Time Out Performed: Yes Pt. Placed on Pulse Ox Monitor: Yes Local Anesthesia Used: Lidocaine 1% Amount of Anesthesia Used (mls): 1 Ultrasound Used for Placement: No Central Line Lumen Inserted: triple Central Line Length: 20 cm Post Procedure: Sutured in Place, Good Blood Return, All Ports Aspirated, Flushed, Capped, Sterile Dressing Applied Secured by: Suture Post procedure dressing: Gauze, Clear vapor permeable Post Procedure X-Ray: No Patient Tolerated Procedure: Well Immediate Complications: None
[2018-03-30] MEDS: Meropenem 1 GM in Sodium Chloride 0.9% 100 ML IVPB SCH ×2 (09:20→20:45)
[2018-03-30] MEDS ORDERED: Midazolam 2 MG/2 ML VIAL IV ONE (10:10)
[2018-03-30] MEDS ORDERED: Chlorhexidine Gluconate 1 APPL/PKT TP ONE (10:46)
--- NOTE | 2018-03-30 10:53 | RAD ---
Date of service: 03/30/2018 HISTORY: reevaluate COMPARISON: Chest radiograph dated 03/27/2018 FINDINGS: LUNGS: Stable pulmonary vascular congestion. Bibasilar atelectasis. PLEURA: Small bilateral pleural effusion. CARDIOVASCULAR: Left subclavian access AICD/pacemaker redemonstrated. Atherosclerotic aortic calcifications. Cardiomediastinal silhouette stably enlarged. OSSEOUS STRUCTURES: Unchanged. VISUALIZED UPPER ABDOMEN: Normal. OTHER FINDINGS: Removal of enteric and endotracheal tubes. Right internal jugular access central venous catheter, unchanged. IMPRESSION: Removal of endotracheal and enteric tubes. Pulmonary vascular congestion with small bilateral pleural effusions and/or atelectasis.
--- NOTE | 2018-03-30 11:47 | CP.PCM.PN ---
Subjective - Date & Time of Evaluation Date of Evaluation: 03/30/18 Time of Evaluation: 11:44 - Subjective Subjective: I D NOTE PATIENT HAD REMOVED TLC THIS AM AND REPLACED BY STATISTICAL DEVELOPER, LIKELY WAS NEEDED TO BE REMOVED BECAUSE OF COAG NEG STAPH INFECTIO CONTINUE VANCOMYCIN STARTED CLINDAMYCIN FOR CHRONIC ASPIRATION. AWAITING IDENTIFICATION OF GRAM NEG RODS ON TRACH,BUT HAVE STARTED MEROPENEM UNSURE IF THIS IS IMMUNE HEPATITIS ,MAY BENEFIT C STEROIDS BUT HAVE GI EVALUATE WILL CONSIDER ADDING DIFLUCAN PENDING F/O CULTURE Objective - Vital Signs/Intake and Output Vital Signs (last 24 hours): Temp Pulse Resp BP Pulse Ox 98.7 F 117 H 27 H 90/60 L 100 03/30/18 08:00 03/30/18 11:00 03/30/18 11:00 03/30/18 11:00 03/30/18 11:00 Intake and Output: 03/30/18 03/30/18 06:59 18:59 Intake Total 866 458 Output Total 350 Balance 516 458 - Medications Medications: Current Medications Acetaminophen (Tylenol 325mg Tab) 650 mg PO Q4 PRN PRN Reason: Pain, Mild (1-3) Last Admin: 03/24/18 21:00 Dose: 650 mg Acetaminophen (Tylenol 650 Mg Supp) 650 mg [place] Q6 PRN PRN Reason: Fever >100.4 F Last Admin: 03/29/18 20:12 Dose: 650 mg Acetaminophen (Tylenol 650 Mg Supp) 650 mg [place] ONCE PRN PRN Reason: Fever >100.4 F Albuterol/Ipratropium (Duoneb 3 Mg/0.5 Mg (3 Ml) Ud) 3 ml INH RQ4 EUGENIO Last Admin: 03/30/18 07:18 Dose: 3 ml Bisacodyl (Dulcolax) 10 mg [place] DAILY PRN PRN Reason: No bowel movement x3days Last Admin: 03/27/18 09:01 Dose: 10 mg Furosemide (Lasix) 40 mg IV BID EUGENIO Last Admin: 03/30/18 09:26 Dose: 40 mg Heparin Sodium (Porcine) (Heparin) 5,000 units SC Q12 EUGENIO PRN Reason: Protocol Last Admin: 03/30/18 09:20 Dose: 5,000 units Vancomycin HCl 750 mg/ Sodium (Chloride) 250 mls @ 166.667 mls/hr IVPB Q12 EUGENIO PRN Reason: Protocol Last Admin: 03/30/18 09:28 Dose: 166.667 mls/hr Dobutamine HCl/Dextrose (Dobutamine/Dextrose 5% 500mg/250ml) 500 mg in 250 mls @ 12.995 mls/hr IV .[id number] EUGENIO PRN Reason: 5 MCG/KG/MIN Last Admin: 03/29/18 13:17 Dose: 12.995 mls/hr Clindamycin Phosphate 600 mg/ (Dextrose) 54 mls @ 50 mls/hr IVPB Q8 EUGENIO PRN Reason: Protocol Last Admin: 03/30/18 09:21 Dose: 50 mls/hr Meropenem 1 gm/ Sodium (Chloride) 100 mls @ 100 mls/hr IVPB Q12 EUGENIO PRN Reason: Protocol Last Admin: 03/30/18 09:20 Dose: 100 mls/hr Magnesium Hydroxide (Milk Of Magnesia) 30 ml PO HS PRN PRN Reason: No bowel movement x2 days Oxymetazoline HCl (Nasal Decongestant 15 Ml) 1 spr NS Q12 PRN PRN Reason: Nasal congestion Last Admin: 03/16/18 16:47 Dose: 1 spr Pantoprazole Sodium (Protonix Inj) 40 mg IVP Q12 EUGENIO Last Admin: 03/30/18 09:20 Dose: 40 mg - Labs Labs: 03/30/18 04:25 03/30/18 04:25 PT 16.1 Seconds (9.8-13.1) H 03/25/18 05:00 INR 1.4 03/25/18 05:00 APTT 33.3 Seconds (25.6-37.1) 03/25/18 05:00
[2018-03-30] MEDS: DOBUTamine 500mg/250ml D5W 500 MG/250 ML BAG IV SCH (11:49)
--- NOTE | 2018-03-30 13:41 | CP.PCM.PN ---
Subjective - Date & Time of Evaluation Date of Evaluation: 03/30/18 Time of Evaluation: 13:05 - Subjective Subjective: F/U Respiratory Failure Open eyes to verbal stimuli, follows simple commands. Objective - Vital Signs/Intake and Output Vital Signs (last 24 hours): Temp Pulse Resp BP Pulse Ox 97.5 F L 115 H 19 82/59 L 16 L 03/30/18 12:00 03/30/18 13:00 03/30/18 13:00 03/30/18 13:00 03/30/18 13:00 Intake and Output: 03/30/18 03/30/18 06:59 18:59 Intake Total 866 458 Output Total 350 Balance 516 458 - Medications Medications: Current Medications Acetaminophen (Tylenol 325mg Tab) 650 mg PO Q4 PRN PRN Reason: Pain, Mild (1-3) Last Admin: 03/24/18 21:00 Dose: 650 mg Acetaminophen (Tylenol 650 Mg Supp) 650 mg [place] Q6 PRN PRN Reason: Fever >100.4 F Last Admin: 03/29/18 20:12 Dose: 650 mg Acetaminophen (Tylenol 650 Mg Supp) 650 mg [place] ONCE PRN PRN Reason: Fever >100.4 F Albuterol/Ipratropium (Duoneb 3 Mg/0.5 Mg (3 Ml) Ud) 3 ml INH RQ4 EUGENIO Last Admin: 03/30/18 07:18 Dose: 3 ml Bisacodyl (Dulcolax) 10 mg [place] DAILY PRN PRN Reason: No bowel movement x3days Last Admin: 03/27/18 09:01 Dose: 10 mg Furosemide (Lasix) 40 mg IV BID COUNT INCLUDES [facility] Last Admin: 03/30/18 09:26 Dose: 40 mg Heparin Sodium (Porcine) (Heparin) 5,000 units SC Q12 EUGENIO PRN Reason: Protocol Last Admin: 03/30/18 09:20 Dose: 5,000 units Vancomycin HCl 750 mg/ Sodium (Chloride) 250 mls @ 166.667 mls/hr IVPB Q12 EUGENIO PRN Reason: Protocol Last Admin: 03/30/18 09:28 Dose: 166.667 mls/hr Dobutamine HCl/Dextrose (Dobutamine/Dextrose 5% 500mg/250ml) 500 mg in 250 mls @ 12.995 mls/hr IV .[id number] EUGENIO PRN Reason: 5 MCG/KG/MIN Last Admin: 03/30/18 11:49 Dose: 12.995 mls/hr Clindamycin Phosphate 600 mg/ (Dextrose) 54 mls @ 50 mls/hr IVPB Q8 EUGENIO PRN Reason: Protocol Last Admin: 03/30/18 09:21 Dose: 50 mls/hr Meropenem 1 gm/ Sodium (Chloride) 100 mls @ 100 mls/hr IVPB Q12 EUGENIO PRN Reason: Protocol Last Admin: 03/30/18 09:20 Dose: 100 mls/hr Norepinephrine Bitartrate 8 mg (/ Dextrose) 258 mls @ 43.53 mls/hr IV .[id number] ONE; 22.5 MCG/MIN PRN Reason: Protocol Stop: 03/30/18 17:49 Last Admin: 03/30/18 12:31 Dose: 22.5 mcg/min, 43.53 mls/hr Magnesium Hydroxide (Milk Of Magnesia) 30 ml PO HS PRN PRN Reason: No bowel movement x2 days Oxymetazoline HCl (Nasal Decongestant 15 Ml) 1 spr NS Q12 PRN PRN Reason: Nasal congestion Last Admin: 03/16/18 16:47 Dose: 1 spr Pantoprazole Sodium (Protonix Inj) 40 mg IVP Q12 EUGENIO Last Admin: 03/30/18 09:20 Dose: 40 mg - Labs Labs: 03/30/18 04:25 03/30/18 04:25 PT 16.1 Seconds (9.8-13.1) H 03/25/18 05:00 INR 1.4 03/25/18 05:00 APTT 33.3 Seconds (25.6-37.1) 03/25/18 05:00 - Constitutional Appears: Chronically Ill - Head Exam Head Exam: NORMAL INSPECTION - Eye Exam Eye Exam: PERRL - ENT Exam Additional comments: Extubated - Neck Exam Neck Exam: Normal Inspection - Respiratory Exam Respiratory Exam: Decreased Breath Sounds (mild at abases), Rhonchi (scattered) - Cardiovascular Exam Cardiovascular Exam: REGULAR RHYTHM Additional comments: PPM - GI/Abdominal Exam GI & Abdominal Exam: Soft, Normal Bowel Sounds - Extremities Exam Additional comments: Edema upper extremities. R-L TKR - Neurological Exam Additional comments: Follows simple commands, generalized weakness. - Skin Skin Exam: Warm Additional comments: Jaundice Assessment and Plan (1) Acute respiratory failure Status: Resolved (2) CHF (congestive heart failure) Status: Chronic (3) Altered mental status Status: Acute (4) UTI (urinary tract infection) Status: Resolved (5) Difficulty with speech Status: Chronic (6) History of permanent cardiac pacemaker placement Status: Chronic (7) CAD (coronary artery disease) Status: Chronic (8) Generalized weakness Status: Chronic (9) Anxiety Status: Chronic (10) Jaundice Status: Acute (11) Bleeding Status: Resolved - Assessment and Plan (Free Text) Plan: Critical care time: 35 minutes
[2018-03-30 16:38] VITALS: BMI 28.6
[2018-03-30] MEDS ORDERED: Phenylephrine 60 MG in Sodium Chloride 0.9% 250 ML IV SCH (20:30)
[2018-03-30] MEDS: Norepinephrine 16 MG in Dextrose 5% In Water 500 ML IV ONE (21:44)
[2018-03-31] MEDS: Albuterol-Ipratrop 3 mg / 0.5 (3 ml) UD INH SCH ×5 (04:29→19:04)
[2018-03-31 05:34] LABS: MEAN CELL VOLUME 94.5 fl (80.0-94.0); MEAN CORPUSCULAR HEMOGLOBIN 31.1 pg (27.0-31.0); MEAN CORPUSCULAR HGB CONC 32.9 g/dL (33.0-37.0); RBC 3.21 Mil/uL (4.40-5.90); RED CELL DISTRIBUTION WIDTH 20.3 % (11.5-14.5); WHITE BLOOD COUNT 9.3 K/uL (4.8-10.8)
[2018-03-31 05:38] LABS: PROTHROMBIN TIME 22.5 Seconds (9.8-13.1)
[2018-03-31 05:41] LABS: PARTIAL THROMBOPLASTIN TIME 32.6 Seconds (25.6-37.1)
[2018-03-31 06:04] LABS: ALBUMIN 3.4 g/dL (3.5-5.0); CALCIUM 8.4 mg/dL (8.4-10.2)
--- NOTE | 2018-03-31 07:27 | CP.CCUPN ---
CCU Subjective - Physician Review Subjective (Free Text): 03/31/18 11:56 The patient was Seen and examined by me at the bedside during ICU round, Medical records reviewed and Management issues were discussed and formulated with the house staff. Events reviewed 77 Years old Male with PMHx significant for Anxiety, HTN, CHF with reduced EF ( echocardiogram on 02/10/18: EF 20-25%) and COPD Critically ill, on multiple Vasopressor, hemodynamically unstable On levophed and Dobutamine Yesterday morning Pt pulled out his Rt IJ TLC, and as he is on dobutamine and Levophed drip new Rt femoral TLC was placed, Patient tolerated the procedure well. He was successfully Extubated but respiratory status remains tenuous, pt is tachypnic Patient awake, but delerious, Not following commands Hypotensive and evidence of fluid overload on physical exam, on IV Furosemide ( Lasix) On levophed and Dobutamine Afebrile, Blood cx positive for gram positive cocci On IV Vanco, Clindamycin and Meropenem NSR on the monitor, HR 110s Last 24H I&O 3010/375 NPO due to high risk for aspiration Tolerating NG tube feeding CXR with persistent RLL infilterate, No Pt Pt S/P B/L throacentesis ABG done on 100% NR 7.46/27/343/20/100% and Lactate of 5.5 He was switched him to 50% VM Critical Care Time Spent (in minutes): 40 CCU Objective - Vital Signs / Intake & Output Vital Signs (Last 4 hours): Vital Signs Temp Pulse Resp BP Pulse Ox 03/31/18 07:00 113 H 35 H 79/52 L 100 03/31/18 06:00 115 H 37 H 82/54 L 100 03/31/18 05:00 112 H 32 H 72/56 L 100 03/31/18 04:00 98.0 F 114 H 43 H 85/63 L 100 Intake and Output (Last 8hrs): Intake & Output 03/30/18 03/31/18 03/31/18 22:59 06:59 14:59 Intake Total 1616 928 Output Total 325 50 Balance 1291 878 Weight 194 lb 0.108 oz Intake: IV 816 428 Intake, Piggyback 100 Tube Feeding 500 400 Free Water Flush 200 100 Output: Urine 325 50 Urethral (Chen) 325 50 Other: # Bowel Movements 0 - Physical Exam Head: Positive for: Atraumatic, Other (Jaundiced) Pupils: Positive for: PERRL Extroacular Muscles: Positive for: EOMI Conjunctiva: Positive for: Normal Mouth: Positive for: Other (Intubated) Pharnyx: Negative for: ERYTHEMA Neck: Positive for: Trachea Midline. Negative for: Meningeal Signs, MIDLINE TENDERNESS Respiratory/Chest: Positive for: Decreased Breath Sounds, Rales, Rhonchi, Tachypneic. Negative for: Clear to Auscultation, Good Air Exchange, Wheezes Cardiovascular: Positive for: Regular Rate and Rhythm, Normal S1, S2, Peripheal Pulses Present, Tachycardic Abdomen: Positive for: Normal Bowel Sounds. Negative for: Tenderness, Distention, Peritoneal Signs Upper Extremity: Positive for: Edema (minimal now. significant improvement from yesterday.) Lower Extremity: Negative for: Edema Neurological: Positive for: Other (awake and alert, responds of simple questions.) Skin: Positive for: Other Psychiatric: Positive for: Alert. Negative for: Oriented x 3 - Medications Active Medications: Active Medications Generic Name Dose Route Start Last Admin Trade Name Freq PRN Reason Stop Dose Admin Acetaminophen 650 mg 03/13/18 01:35 03/24/18 21:00 Tylenol 325mg Tab PO 650 mg Q4 PRN Administration Pain, Mild (1-3) Acetaminophen 650 mg 03/25/18 23:46 03/29/18 20:12 Tylenol 650 Mg Supp [place] 650 mg Q6 PRN Administration Fever >100.4 F Acetaminophen 650 mg 03/27/18 15:04 Tylenol 650 Mg Supp [place] ONCE PRN Fever >100.4 F Albuterol/Ipratropium 3 ml 03/26/18 20:00 03/31/18 04:29 Duoneb 3 Mg/0.5 Mg (3 Ml) Ud INH 3 ml RQ4 EUGENIO Administration Bisacodyl 10 mg 03/13/18 01:35 03/27/18 09:01 Dulcolax FL 10 mg DAILY PRN Administration No bowel movement x3days Furosemide 40 mg 03/30/18 09:15 03/30/18 16:18 Lasix IV 40 mg BID EUGENIO Administration Heparin Sodium (Porcine) 5,000 units 03/25/18 09:00 03/30/18 20:49 Heparin SC 5,000 units Q12 EUGENIO Administration Protocol Vancomycin HCl 750 mg/ Sodium 250 mls @ 166.667 mls/hr 03/27/18 21:00 21:46 Chloride IVPB 166.667 mls/hr Q12 EUGENIO Administration Protocol Dobutamine HCl/Dextrose 500 mg in 250 mls @ 12.995 mls/hr 03/28/18 17:15 08/05 11:49 Dobutamine/Dextrose 5% 500mg/250ml IV 12.995 mls/hr .[id number] EUGENIO Administration 5 MCG/KG/MIN Clindamycin Phosphate 600 mg/ 54 mls @ 50 mls/hr 03/30/18 01:00 03/31/18 01: 00 Dextrose IVPB 50 mls/hr Q8 EUGENIO Administration Protocol Meropenem 1 gm/ Sodium 100 mls @ 100 mls/hr 03/30/18 09:00 03/30/18 20:45 Chloride IVPB 100 mls/hr Q12 EUGENIO Administration Protocol Phenylephrine HCl 60 mg/ 256 mls @ 5.11 mls/hr 03/30/18 20:30 03/30/18 23:30 Sodium Chloride IV 03/31/18 20:27 50 mcg/min .Q24H EUGENIO 12.79 mls/hr Protocol Titration 20 MCG/MIN Norepinephrine Bitartrate 16 516 mls @ 33.86 mls/hr 03/30/18 20:40 03/30/18 23:30 mg/ Dextrose IV 03/31/18 11:41 20 mcg/min .[id number] ONE 38.7 mls/hr Protocol Titration 17.5 MCG/MIN Magnesium Hydroxide 30 ml 03/13/18 01:35 Milk Of Magnesia PO HS PRN No bowel movement x2 days Oxymetazoline HCl 1 spr 03/16/18 16:36 03/16/18 16:47 Nasal Decongestant 15 Ml NS 1 spr Q12 PRN Administration Nasal congestion Pantoprazole Sodium 40 mg 03/18/18 21:00 03/30/18 20:50 Protonix Inj IVP 40 mg Q12 EUGENIO Administration - Patient Studies Lab Studies: Microbiology Studies 03/29/18 21:16 Blood Culture - Preliminary Blood-Venous NO GROWTH AFTER 24 HOURS 03/29/18 21:06 Blood Culture - Preliminary Blood-Venous NO GROWTH AFTER 24 HOURS 03/27/18 13:00 Gram Stain - Final Trachasp Sputum Culture - Final Serratia Marcescens 03/27/18 12:16 Blood Culture - Preliminary Blood-Thru Central Line NO GROWTH AFTER 3 DAYS 03/27/18 12:16 Blood Culture - Preliminary Blood-Venous NO GROWTH AFTER 3 DAYS Lab Studies 03/31/18 03/31/18 03/31/18 Range/Units 04:20 04:20 04:20 WBC (4.8-10.8) K/uL RBC (4.40-5.90) Mil/uL Hgb (12.0-18.0) g/dL Hct (35.0-51.0) % MCV (80.0-94.0) fl MCH (27.0-31.0) pg MCHC (33.0-37.0) g/dL RDW (11.5-14.5) % Plt Count (130-400) K/uL PT 22.5 H (9.8-13.1) Seconds INR 2.0 APTT 32.6 (25.6-37.1) Seconds Sodium 132 (132-148) mmol/l Potassium 4.9 (3.6-5.0) MMOL/L Chloride 92 L (98-107) mmol/L Carbon Dioxide 23 (22-30) mmol/L Anion Gap 22 H (10-20) BUN 36 H (9-20) mg/dl Creatinine 1.9 H (0.8-1.5) mg/dl Est GFR ( Amer) 42 Est GFR (Non-Af Amer) 35 Random Glucose 111 H (75-110) mg/dL Calcium 8.4 (8.4-10.2) mg/dL Phosphorus 4.0 (2.5-4.5) mg/dl Magnesium 2.1 (1.6-2.3) MG/DL Total Bilirubin 2.9 H (0.2-1.3) mg/dl AST 50 (17-59) U/L ALT 28 (21-72) U/L Alkaline Phosphatase 72 (38-126) U/L Total Protein 6.7 (6.3-8.2) G/DL Albumin 3.4 L (3.5-5.0) g/dL Globulin 3.3 (2.2-3.9) gm/dL Albumin/Globulin Ratio 1.0 (1.0-2.1) Random Vancomycin 29.5 ug/mL 03/31/18 Range/Units 04:20 WBC 9.3 (4.8-10.8) K/uL RBC 3.21 L (4.40-5.90) Mil/uL Hgb 10.0 L (12.0-18.0) g/dL Hct 30.3 L (35.0-51.0) % MCV 94.5 H (80.0-94.0) fl MCH 31.1 H (27.0-31.0) pg MCHC 32.9 L (33.0-37.0) g/dL RDW 20.3 H (11.5-14.5) % Plt Count 324 (130-400) K/uL PT (9.8-13.1) Seconds INR APTT (25.6-37.1) Seconds Sodium (132-148) mmol/l Potassium (3.6-5.0) MMOL/L Chloride (98-107) mmol/L Carbon Dioxide (22-30) mmol/L Anion Gap (10-20) BUN (9-20) mg/dl Creatinine (0.8-1.5) mg/dl Est GFR ( Amer) Est GFR (Non-Af Amer) Random Glucose (75-110) mg/dL Calcium (8.4-10.2) mg/dL Phosphorus (2.5-4.5) mg/dl Magnesium (1.6-2.3) MG/DL Total Bilirubin (0.2-1.3) mg/dl AST (17-59) U/L ALT (21-72) U/L Alkaline Phosphatase (38-126) U/L Total Protein (6.3-8.2) G/DL Albumin (3.5-5.0) g/dL Globulin (2.2-3.9) gm/dL Albumin/Globulin Ratio (1.0-2.1) Random Vancomycin ug/mL Laboratory Results - last 24 hr 03/31/18 03/31/18 03/31/18 04:20 04:20 04:20 WBC 9.3 RBC 3.21 L Hgb 10.0 L Hct 30.3 L MCV 94.5 H MCH 31.1 H MCHC 32.9 L RDW 20.3 H Plt Count 324 PT 22.5 H INR 2.0 APTT 32.6 Sodium 132 Potassium 4.9 Chloride 92 L Carbon Dioxide 23 Anion Gap 22 H BUN 36 H Creatinine 1.9 H Est GFR ( Amer) 42 Est GFR (Non-Af Amer) 35 Random Glucose 111 H Calcium 8.4 Phosphorus 4.0 Magnesium 2.1 Total Bilirubin 2.9 H AST 50 ALT 28 Alkaline Phosphatase 72 Total Protein 6.7 Albumin 3.4 L Globulin 3.3 Albumin/Globulin Ratio 1.0 Random Vancomycin 03/31/18 04:20 WBC RBC Hgb Hct MCV MCH MCHC RDW Plt Count PT INR APTT Sodium Potassium Chloride Carbon Dioxide Anion Gap BUN Creatinine Est GFR ( Amer) Est GFR (Non-Af Amer) Random Glucose Calcium Phosphorus Magnesium Total Bilirubin AST ALT Alkaline Phosphatase Total Protein Albumin Globulin Albumin/Globulin Ratio Random Vancomycin 29.5 Fingerstick Blood Sugar Results: 88 Review of Systems - Review of Systems Systems not reviewed;Unavailable: Acuity of Condition - Constitutional Constitutional: absent: Fever, Chills - Cardiovascular Cardiovascular: absent: Chest Pain - Respiratory Respiratory: Cough, Dyspnea - Gastrointestinal Gastrointestinal: absent: Abdominal Pain Critical Care Progress Note - Extremities/Vascular Does the Patient have a Central Venous Catheter?: Yes Does the Patient need a Central Venous Catheter?: Yes Assessment/Plan (1) Acute respiratory failure Current Visit: Yes Status: Resolved Priority: High Comment: Acute respiratory failure with hypoxia secondary to HCAP with pleural effusion, CHF and acute pulmonary edema S/P B/L throacentesis Continue IV Vanco, Clindamycin and Meropenem Gentle Diuresis Strict I&O, negative fluid balance Aggressive pulmonary toilet, chest PT, suctioning CXR with persistent RLL infilterate, consider repeat chest CT scan NPO (2) Bacteremia Current Visit: Yes Status: Acute Priority: High Comment: Blood cx positive for gram positive cocci Continue IV Vanco, Clindamycin and Meropenem Completed IV micofungin 100 mg IVP Q24 hrs from 03/21 to 03/24 (3) CHF (congestive heart failure) Current Visit: Yes Status: Chronic Priority: High Comment: Continue levophed for BP support, wean as tolerated Continue Dobutamine follow up sVo2 Maintain MAP 65-75 (4) Hypotension Current Visit: Yes Status: Acute Priority: High Comment: Continue levophed for BP support, wean as tolerated Maintain MAP 65-75 Holding coreg (5) Jaundice Current Visit: Yes Status: Acute Priority: High Comment: Patient with hepatitis A & B LFT WNL, H/H Stable GI consulted, Endoscope when more stable or if bleeding worse (6) Thrombocytopenia Current Visit: Yes Status: Resolved Priority: Medium
[2018-03-31] MEDS: Meropenem 1 GM in Sodium Chloride 0.9% 100 ML IVPB SCH ×2 (09:02→21:13)
[2018-03-31 10:10] LABS: ABG ALLEN TEST YES; ARTERIAL BLOOD GAS HCO3 22.2 mmol/L (21-28); ARTERIAL BLOOD GAS O2 SAT 100.5 % (95-98); ARTERIAL BLOOD GAS PCO2 27 mm/Hg (35-45); ARTERIAL BLOOD GAS PH 7.46 (7.35-7.45); ARTERIAL BLOOD GAS PO2 343 mm/Hg (80-100)
[2018-03-31] MEDS: DOBUTamine 500mg/250ml D5W 500 MG/250 ML BAG IV SCH (11:19)
[2018-03-31] MEDS: Norepinephrine 16 MG in Dextrose 5% In Water 500 ML IV ONE (11:20)
--- NOTE | 2018-03-31 14:02 | CP.PCM.PN ---
Subjective - Date & Time of Evaluation Date of Evaluation: 03/28/18 Time of Evaluation: 14:02 Objective - Vital Signs/Intake and Output Vital Signs (last 24 hours): Temp Pulse Resp BP Pulse Ox 98.5 F 117 H 22 82/64 L 79 L 03/31/18 12:10 03/31/18 12:10 03/31/18 12:10 03/31/18 12:10 03/31/18 12:10 Intake and Output: 03/31/18 03/31/18 06:59 18:59 Intake Total 1154 900 Output Total 75 Balance 1079 900 - Medications Medications: Current Medications Acetaminophen (Tylenol 325mg Tab) 650 mg PO Q4 PRN PRN Reason: Pain, Mild (1-3) Last Admin: 03/24/18 21:00 Dose: 650 mg Acetaminophen (Tylenol 650 Mg Supp) 650 mg [place] Q6 PRN PRN Reason: Fever >100.4 F Last Admin: 03/29/18 20:12 Dose: 650 mg Acetaminophen (Tylenol 650 Mg Supp) 650 mg [place] ONCE PRN PRN Reason: Fever >100.4 F Albuterol/Ipratropium (Duoneb 3 Mg/0.5 Mg (3 Ml) Ud) 3 ml INH RQ4 EUGENIO Last Admin: 03/31/18 11:03 Dose: 3 ml Bisacodyl (Dulcolax) 10 mg [place] DAILY PRN PRN Reason: No bowel movement x3days Last Admin: 03/27/18 09:01 Dose: 10 mg Furosemide (Lasix) 40 mg IV BID [facility] Last Admin: 03/31/18 10:13 Dose: 40 mg Heparin Sodium (Porcine) (Heparin) 5,000 units SC Q12 EUGENIO PRN Reason: Protocol Last Admin: 03/31/18 09:01 Dose: 5,000 units Vancomycin HCl 750 mg/ Sodium (Chloride) 250 mls @ 166.667 mls/hr IVPB Q12 EUGENIO PRN Reason: Protocol Last Admin: 03/31/18 09:03 Dose: 166.667 mls/hr Dobutamine HCl/Dextrose (Dobutamine/Dextrose 5% 500mg/250ml) 500 mg in 250 mls @ 12.995 mls/hr IV .[id number] EUGENIO PRN Reason: 5 MCG/KG/MIN Last Admin: 03/31/18 11:19 Dose: 12.995 mls/hr Clindamycin Phosphate 600 mg/ (Dextrose) 54 mls @ 50 mls/hr IVPB Q8 EUGENIO PRN Reason: Protocol Last Admin: 03/31/18 09:01 Dose: 50 mls/hr Meropenem 1 gm/ Sodium (Chloride) 100 mls @ 100 mls/hr IVPB Q12 EUGENIO PRN Reason: Protocol Last Admin: 03/31/18 09:02 Dose: 100 mls/hr Phenylephrine HCl 60 mg/ (Sodium Chloride) 256 mls @ 5.11 mls/hr IV .Q24H EUGENIO; 20 MCG/MIN PRN Reason: Protocol Stop: 03/31/18 20:27 Last Titration: 03/31/18 10:14 Dose: 180 mcg/min, 46.08 mls/hr Magnesium Hydroxide (Milk Of Magnesia) 30 ml PO HS PRN PRN Reason: No bowel movement x2 days Oxymetazoline HCl (Nasal Decongestant 15 Ml) 1 spr NS Q12 PRN PRN Reason: Nasal congestion Last Admin: 03/16/18 16:47 Dose: 1 spr Pantoprazole Sodium (Protonix Inj) 40 mg IVP Q12 EUGENIO Last Admin: 03/31/18 09:03 Dose: 40 mg - Labs Labs: 03/31/18 04:20 03/31/18 04:20 PT 22.5 Seconds (9.8-13.1) H 03/31/18 04:20 INR 2.0 03/31/18 04:20 APTT 32.6 Seconds (25.6-37.1) 03/31/18 04:20 Assessment and Plan (1) CHF (congestive heart failure) Status: Chronic (2) Acute respiratory failure Status: Resolved (3) Altered mental status Status: Acute (4) Jaundice Status: Acute (5) CAD (coronary artery disease) Status: Chronic (6) History of permanent cardiac pacemaker placement Status: Chronic (7) COPD exacerbation Status: Resolved
--- NOTE | 2018-03-31 14:02 | CP.PCM.PN ---
Subjective - Date & Time of Evaluation Date of Evaluation: 03/27/18 Time of Evaluation: 14:02 Objective - Vital Signs/Intake and Output Vital Signs (last 24 hours): Temp Pulse Resp BP Pulse Ox 98.5 F 117 H 22 82/64 L 79 L 03/31/18 12:10 03/31/18 12:10 03/31/18 12:10 03/31/18 12:10 03/31/18 12:10 Intake and Output: 03/31/18 03/31/18 06:59 18:59 Intake Total 1154 900 Output Total 75 Balance 1079 900 - Medications Medications: Current Medications Acetaminophen (Tylenol 325mg Tab) 650 mg PO Q4 PRN PRN Reason: Pain, Mild (1-3) Last Admin: 03/24/18 21:00 Dose: 650 mg Acetaminophen (Tylenol 650 Mg Supp) 650 mg [place] Q6 PRN PRN Reason: Fever >100.4 F Last Admin: 03/29/18 20:12 Dose: 650 mg Acetaminophen (Tylenol 650 Mg Supp) 650 mg [place] ONCE PRN PRN Reason: Fever >100.4 F Albuterol/Ipratropium (Duoneb 3 Mg/0.5 Mg (3 Ml) Ud) 3 ml INH RQ4 EUGENIO Last Admin: 03/31/18 11:03 Dose: 3 ml Bisacodyl (Dulcolax) 10 mg [place] DAILY PRN PRN Reason: No bowel movement x3days Last Admin: 03/27/18 09:01 Dose: 10 mg Furosemide (Lasix) 40 mg IV BID [facility] Last Admin: 03/31/18 10:13 Dose: 40 mg Heparin Sodium (Porcine) (Heparin) 5,000 units SC Q12 EUGENIO PRN Reason: Protocol Last Admin: 03/31/18 09:01 Dose: 5,000 units Vancomycin HCl 750 mg/ Sodium (Chloride) 250 mls @ 166.667 mls/hr IVPB Q12 EUGENIO PRN Reason: Protocol Last Admin: 03/31/18 09:03 Dose: 166.667 mls/hr Dobutamine HCl/Dextrose (Dobutamine/Dextrose 5% 500mg/250ml) 500 mg in 250 mls @ 12.995 mls/hr IV .[id number] EUGENIO PRN Reason: 5 MCG/KG/MIN Last Admin: 03/31/18 11:19 Dose: 12.995 mls/hr Clindamycin Phosphate 600 mg/ (Dextrose) 54 mls @ 50 mls/hr IVPB Q8 EUGENIO PRN Reason: Protocol Last Admin: 03/31/18 09:01 Dose: 50 mls/hr Meropenem 1 gm/ Sodium (Chloride) 100 mls @ 100 mls/hr IVPB Q12 EUGENIO PRN Reason: Protocol Last Admin: 03/31/18 09:02 Dose: 100 mls/hr Phenylephrine HCl 60 mg/ (Sodium Chloride) 256 mls @ 5.11 mls/hr IV .Q24H EUGENIO; 20 MCG/MIN PRN Reason: Protocol Stop: 03/31/18 20:27 Last Titration: 03/31/18 10:14 Dose: 180 mcg/min, 46.08 mls/hr Magnesium Hydroxide (Milk Of Magnesia) 30 ml PO HS PRN PRN Reason: No bowel movement x2 days Oxymetazoline HCl (Nasal Decongestant 15 Ml) 1 spr NS Q12 PRN PRN Reason: Nasal congestion Last Admin: 03/16/18 16:47 Dose: 1 spr Pantoprazole Sodium (Protonix Inj) 40 mg IVP Q12 EUGENIO Last Admin: 03/31/18 09:03 Dose: 40 mg - Labs Labs: 03/31/18 04:20 03/31/18 04:20 PT 22.5 Seconds (9.8-13.1) H 03/31/18 04:20 INR 2.0 03/31/18 04:20 APTT 32.6 Seconds (25.6-37.1) 03/31/18 04:20 Assessment and Plan (1) CHF (congestive heart failure) Status: Chronic (2) Acute respiratory failure Status: Resolved (3) Altered mental status Status: Acute (4) Jaundice Status: Acute (5) CAD (coronary artery disease) Status: Chronic (6) History of permanent cardiac pacemaker placement Status: Chronic (7) COPD exacerbation Status: Resolved
--- NOTE | 2018-03-31 14:04 | CP.PCM.PN ---
Subjective - Date & Time of Evaluation Date of Evaluation: 03/31/18 Time of Evaluation: 14:03 - Subjective Subjective: delerious on 3 pressors Objective - Vital Signs/Intake and Output Vital Signs (last 24 hours): Temp Pulse Resp BP Pulse Ox 98.5 F 117 H 22 82/64 L 79 L 03/31/18 12:10 03/31/18 12:10 03/31/18 12:10 03/31/18 12:10 03/31/18 12:10 Intake and Output: 03/31/18 03/31/18 06:59 18:59 Intake Total 1154 900 Output Total 75 Balance 1079 900 - Medications Medications: Current Medications Acetaminophen (Tylenol 325mg Tab) 650 mg PO Q4 PRN PRN Reason: Pain, Mild (1-3) Last Admin: 03/24/18 21:00 Dose: 650 mg Acetaminophen (Tylenol 650 Mg Supp) 650 mg DC Q6 PRN PRN Reason: Fever >100.4 F Last Admin: 03/29/18 20:12 Dose: 650 mg Acetaminophen (Tylenol 650 Mg Supp) 650 mg DC ONCE PRN PRN Reason: Fever >100.4 F Albuterol/Ipratropium (Duoneb 3 Mg/0.5 Mg (3 Ml) Ud) 3 ml INH RQ4 EUGENIO Last Admin: 03/31/18 11:03 Dose: 3 ml Bisacodyl (Dulcolax) 10 mg DC DAILY PRN PRN Reason: No bowel movement x3days Last Admin: 03/27/18 09:01 Dose: 10 mg Furosemide (Lasix) 40 mg IV BID [facility] Last Admin: 03/31/18 10:13 Dose: 40 mg Heparin Sodium (Porcine) (Heparin) 5,000 units SC Q12 EUGENIO PRN Reason: Protocol Last Admin: 03/31/18 09:01 Dose: 5,000 units Vancomycin HCl 750 mg/ Sodium (Chloride) 250 mls @ 166.667 mls/hr IVPB Q12 EUGENIO PRN Reason: Protocol Last Admin: 03/31/18 09:03 Dose: 166.667 mls/hr Dobutamine HCl/Dextrose (Dobutamine/Dextrose 5% 500mg/250ml) 500 mg in 250 mls @ 12.995 mls/hr IV .[id number] EUGENIO PRN Reason: 5 MCG/KG/MIN Last Admin: 03/31/18 11:19 Dose: 12.995 mls/hr Clindamycin Phosphate 600 mg/ (Dextrose) 54 mls @ 50 mls/hr IVPB Q8 EUGENIO PRN Reason: Protocol Last Admin: 03/31/18 09:01 Dose: 50 mls/hr Meropenem 1 gm/ Sodium (Chloride) 100 mls @ 100 mls/hr IVPB Q12 EUGENIO PRN Reason: Protocol Last Admin: 03/31/18 09:02 Dose: 100 mls/hr Phenylephrine HCl 60 mg/ (Sodium Chloride) 256 mls @ 5.11 mls/hr IV .Q24H EUGENIO; 20 MCG/MIN PRN Reason: Protocol Stop: 03/31/18 20:27 Last Titration: 03/31/18 10:14 Dose: 180 mcg/min, 46.08 mls/hr Magnesium Hydroxide (Milk Of Magnesia) 30 ml PO HS PRN PRN Reason: No bowel movement x2 days Oxymetazoline HCl (Nasal Decongestant 15 Ml) 1 spr NS Q12 PRN PRN Reason: Nasal congestion Last Admin: 03/16/18 16:47 Dose: 1 spr Pantoprazole Sodium (Protonix Inj) 40 mg IVP Q12 EUGENIO Last Admin: 03/31/18 09:03 Dose: 40 mg - Labs Labs: 03/31/18 04:20 03/31/18 04:20 PT 22.5 Seconds (9.8-13.1) H 03/31/18 04:20 INR 2.0 03/31/18 04:20 APTT 32.6 Seconds (25.6-37.1) 03/31/18 04:20 - Constitutional Appears: Toxic, In Acute Distress - Head Exam Head Exam: ATRAUMATIC, NORMAL INSPECTION, NORMOCEPHALIC - Eye Exam Eye Exam: EOMI, Normal appearance, PERRL Pupil Exam: NORMAL ACCOMODATION, PERRL - ENT Exam ENT Exam: Mucous Membranes Moist, Normal Exam - Neck Exam Neck Exam: Full ROM, Normal Inspection. absent: Lymphadenopathy - Respiratory Exam Respiratory Exam: Rales, Rhonchi, Respiratory Distress - Cardiovascular Exam Cardiovascular Exam: REGULAR RHYTHM, +S1, +S2, Murmur - GI/Abdominal Exam GI & Abdominal Exam: Soft, Normal Bowel Sounds. absent: Tenderness - Extremities Exam Extremities Exam: Full ROM, Normal Capillary Refill, Normal Inspection. absent : Joint Swelling, Pedal Edema - Back Exam Back Exam: NORMAL INSPECTION - Neurological Exam Neurological Exam: Alert, Awake, CN II-XII Intact, Normal Gait, Oriented x3 - Psychiatric Exam Psychiatric exam: Normal Affect, Normal Mood - Skin Skin Exam: Dry, Intact, Normal Color, Warm Assessment and Plan (1) CHF (congestive heart failure) Status: Chronic (2) Acute respiratory failure Status: Resolved (3) Altered mental status Status: Acute (4) Jaundice Status: Acute (5) CAD (coronary artery disease) Status: Chronic (6) History of permanent cardiac pacemaker placement Status: Chronic (7) COPD exacerbation Status: Resolved
--- NOTE | 2018-03-31 14:05 | CP.PCM.PN ---
Subjective - Date & Time of Evaluation Date of Evaluation: 03/29/18 Time of Evaluation: 14:04 Objective - Vital Signs/Intake and Output Vital Signs (last 24 hours): Temp Pulse Resp BP Pulse Ox 98.5 F 117 H 22 82/64 L 79 L 03/31/18 12:10 03/31/18 12:10 03/31/18 12:10 03/31/18 12:10 03/31/18 12:10 Intake and Output: 03/31/18 03/31/18 06:59 18:59 Intake Total 1154 900 Output Total 75 Balance 1079 900 - Medications Medications: Current Medications Acetaminophen (Tylenol 325mg Tab) 650 mg PO Q4 PRN PRN Reason: Pain, Mild (1-3) Last Admin: 03/24/18 21:00 Dose: 650 mg Acetaminophen (Tylenol 650 Mg Supp) 650 mg IN Q6 PRN PRN Reason: Fever >100.4 F Last Admin: 03/29/18 20:12 Dose: 650 mg Acetaminophen (Tylenol 650 Mg Supp) 650 mg IN ONCE PRN PRN Reason: Fever >100.4 F Albuterol/Ipratropium (Duoneb 3 Mg/0.5 Mg (3 Ml) Ud) 3 ml INH RQ4 EUGENIO Last Admin: 03/31/18 11:03 Dose: 3 ml Bisacodyl (Dulcolax) 10 mg IN DAILY PRN PRN Reason: No bowel movement x3days Last Admin: 03/27/18 09:01 Dose: 10 mg Furosemide (Lasix) 40 mg IV BID [facility] Last Admin: 03/31/18 10:13 Dose: 40 mg Heparin Sodium (Porcine) (Heparin) 5,000 units SC Q12 EUGENIO PRN Reason: Protocol Last Admin: 03/31/18 09:01 Dose: 5,000 units Vancomycin HCl 750 mg/ Sodium (Chloride) 250 mls @ 166.667 mls/hr IVPB Q12 EUGENIO PRN Reason: Protocol Last Admin: 03/31/18 09:03 Dose: 166.667 mls/hr Dobutamine HCl/Dextrose (Dobutamine/Dextrose 5% 500mg/250ml) 500 mg in 250 mls @ 12.995 mls/hr IV .[id number] EUGENIO PRN Reason: 5 MCG/KG/MIN Last Admin: 03/31/18 11:19 Dose: 12.995 mls/hr Clindamycin Phosphate 600 mg/ (Dextrose) 54 mls @ 50 mls/hr IVPB Q8 EUGENIO PRN Reason: Protocol Last Admin: 03/31/18 09:01 Dose: 50 mls/hr Meropenem 1 gm/ Sodium (Chloride) 100 mls @ 100 mls/hr IVPB Q12 EUGENIO PRN Reason: Protocol Last Admin: 03/31/18 09:02 Dose: 100 mls/hr Phenylephrine HCl 60 mg/ (Sodium Chloride) 256 mls @ 5.11 mls/hr IV .Q24H EUGENIO; 20 MCG/MIN PRN Reason: Protocol Stop: 03/31/18 20:27 Last Titration: 03/31/18 10:14 Dose: 180 mcg/min, 46.08 mls/hr Magnesium Hydroxide (Milk Of Magnesia) 30 ml PO HS PRN PRN Reason: No bowel movement x2 days Oxymetazoline HCl (Nasal Decongestant 15 Ml) 1 spr NS Q12 PRN PRN Reason: Nasal congestion Last Admin: 03/16/18 16:47 Dose: 1 spr Pantoprazole Sodium (Protonix Inj) 40 mg IVP Q12 EUGENIO Last Admin: 03/31/18 09:03 Dose: 40 mg - Labs Labs: 03/31/18 04:20 03/31/18 04:20 PT 22.5 Seconds (9.8-13.1) H 03/31/18 04:20 INR 2.0 03/31/18 04:20 APTT 32.6 Seconds (25.6-37.1) 03/31/18 04:20 Assessment and Plan (1) CHF (congestive heart failure) Status: Chronic (2) Acute respiratory failure Status: Resolved (3) Altered mental status Status: Acute (4) Jaundice Status: Acute (5) CAD (coronary artery disease) Status: Chronic (6) History of permanent cardiac pacemaker placement Status: Chronic (7) COPD exacerbation Status: Resolved
--- NOTE | 2018-03-31 15:08 | CP.PCM.PN ---
Subjective - Date & Time of Evaluation Date of Evaluation: 03/31/18 Time of Evaluation: 12:20 - Subjective Subjective: F/U Respiratory Failure awake, confused, follows simple commands Objective - Vital Signs/Intake and Output Vital Signs (last 24 hours): Temp Pulse Resp BP Pulse Ox 98.5 F 117 H 22 82/64 L 79 L 03/31/18 12:10 03/31/18 12:10 03/31/18 12:10 03/31/18 12:10 03/31/18 12:10 Intake and Output: 03/31/18 03/31/18 06:59 18:59 Intake Total 1154 900 Output Total 75 Balance 1079 900 - Medications Medications: Current Medications Acetaminophen (Tylenol 325mg Tab) 650 mg PO Q4 PRN PRN Reason: Pain, Mild (1-3) Last Admin: 03/24/18 21:00 Dose: 650 mg Acetaminophen (Tylenol 650 Mg Supp) 650 mg AR Q6 PRN PRN Reason: Fever >100.4 F Last Admin: 03/29/18 20:12 Dose: 650 mg Acetaminophen (Tylenol 650 Mg Supp) 650 mg AR ONCE PRN PRN Reason: Fever >100.4 F Albuterol/Ipratropium (Duoneb 3 Mg/0.5 Mg (3 Ml) Ud) 3 ml INH RQ4 EUGENIO Last Admin: 03/31/18 11:03 Dose: 3 ml Bisacodyl (Dulcolax) 10 mg AR DAILY PRN PRN Reason: No bowel movement x3days Last Admin: 03/27/18 09:01 Dose: 10 mg Furosemide (Lasix) 40 mg IV BID [facility] Last Admin: 03/31/18 10:13 Dose: 40 mg Heparin Sodium (Porcine) (Heparin) 5,000 units SC Q12 EUGENIO PRN Reason: Protocol Last Admin: 03/31/18 09:01 Dose: 5,000 units Vancomycin HCl 750 mg/ Sodium (Chloride) 250 mls @ 166.667 mls/hr IVPB Q12 EUGENIO PRN Reason: Protocol Last Admin: 03/31/18 09:03 Dose: 166.667 mls/hr Dobutamine HCl/Dextrose (Dobutamine/Dextrose 5% 500mg/250ml) 500 mg in 250 mls @ 12.995 mls/hr IV .[id number] EUGENIO PRN Reason: 5 MCG/KG/MIN Last Admin: 03/31/18 11:19 Dose: 12.995 mls/hr Clindamycin Phosphate 600 mg/ (Dextrose) 54 mls @ 50 mls/hr IVPB Q8 EUGENIO PRN Reason: Protocol Last Admin: 03/31/18 09:01 Dose: 50 mls/hr Meropenem 1 gm/ Sodium (Chloride) 100 mls @ 100 mls/hr IVPB Q12 EUGENIO PRN Reason: Protocol Last Admin: 03/31/18 09:02 Dose: 100 mls/hr Phenylephrine HCl 60 mg/ (Sodium Chloride) 256 mls @ 5.11 mls/hr IV .Q24H EUGENIO; 20 MCG/MIN PRN Reason: Protocol Stop: 03/31/18 20:27 Last Titration: 03/31/18 10:14 Dose: 180 mcg/min, 46.08 mls/hr Magnesium Hydroxide (Milk Of Magnesia) 30 ml PO HS PRN PRN Reason: No bowel movement x2 days Oxymetazoline HCl (Nasal Decongestant 15 Ml) 1 spr NS Q12 PRN PRN Reason: Nasal congestion Last Admin: 03/16/18 16:47 Dose: 1 spr Pantoprazole Sodium (Protonix Inj) 40 mg IVP Q12 EUGENIO Last Admin: 03/31/18 09:03 Dose: 40 mg - Labs Labs: 03/31/18 04:20 03/31/18 04:20 PT 22.5 Seconds (9.8-13.1) H 03/31/18 04:20 INR 2.0 03/31/18 04:20 APTT 32.6 Seconds (25.6-37.1) 03/31/18 04:20 - Constitutional Appears: Chronically Ill - Head Exam Head Exam: NORMAL INSPECTION - Eye Exam Eye Exam: PERRL - ENT Exam Additional comments: On 100% non-rebreather - Neck Exam Neck Exam: Normal Inspection - Respiratory Exam Respiratory Exam: Decreased Breath Sounds (at bases), Rales (at bases), Rhonchi - Cardiovascular Exam Cardiovascular Exam: Tachycardia Additional comments: PPM - GI/Abdominal Exam GI & Abdominal Exam: Soft, Normal Bowel Sounds - Extremities Exam Additional comments: trace edema U/E, R-L TKR - Neurological Exam Additional comments: Lethargic, open eyes on verbal and tactile stimuli, following simpleccommands, generalized weakness. - Skin Skin Exam: Warm Additional comments: Jaundice Assessment and Plan (1) Acute respiratory failure Status: Resolved (2) CHF (congestive heart failure) Status: Chronic (3) Altered mental status Status: Acute (4) UTI (urinary tract infection) Status: Resolved (5) Difficulty with speech Status: Chronic (6) History of permanent cardiac pacemaker placement Status: Chronic (7) CAD (coronary artery disease) Status: Chronic (8) Generalized weakness Status: Chronic (9) Anxiety Status: Chronic (10) Jaundice Status: Acute (11) Bleeding Status: Resolved - Assessment and Plan (Free Text) Plan: BP low , Patent on Dopamine, Dobutamine, Norepinephrine, Patient's and daughter at bedside, critical condition and por prognosis discussed with them, They want reintubation if needed and any other invasive procedure if needed.
--- NOTE | 2018-03-31 15:54 | CARD ---
APPROVED REPORT Date of service: 03/31/2018 EXAM: Two-dimensional and M-mode echocardiogram with Doppler and color Doppler. Other Information Quality : GoodAverageRhythm : Pacemaker INDICATION Infection: LV Function:SystolicDiastolic Surgery/Intervention ICD/Pacemaker: 2D DIMENSIONS IVSd1.15 (0.7-1.1cm)LVOT Diameter2.42 (1.8-2.4cm) PWd0.84 (0.7-1.1cm)IVSs0.84 (0.8-1.2cm) FS (%) 9.8 %PWs0.78 (0.8-1.2cm) Aortic Valve AoV Peak Xetjspug69.5cm/sAoV VTI9.5cmAO Peak GR.2mmHg LVOT Peak Lrkalbni90.9cm/sLVOT VTI5.70cmAO Mean GR.1mmHg Mitral Valve MV E Lkbhpbof33.0cm/sMV DECEL [id number] A Phvfxwgp88.7cm/s MV MPP02scD/A ratio2.7MVA (PHT)4.78cm2 TDI Lateral E' Peak V2.69cm/sMedial E' Peak V2.77cm/sE/Lateral E'29.0 E/Medial E'28.2 Tricuspid Valve TR Peak Nvmuksty160ac/sRAP [id number] Peak Gr.16mmHg [id number] LEFT VENTRICLE The left ventricle is mildly dilated There is normal left ventricular wall thickness. There is severe global LV systolic dysfunction, with additional marked hypokinesis of the anterior and apical clement The Ejection Fraction is 20-25%. No regional wall motion abnormalities noted.. The left ventricular diastolic function is normal. No left ventricle thrombus noted on this study. There is no ventricular septal defect visualized. There is no mass noted in the left ventricle. RIGHT VENTRICLE The right ventricle is normal size. There is normal right ventricular wall thickness. The right ventricular systolic function is reduced RV pacemaker lead present ATRIA The left atrium size is moderately dilated The right atrium size is normal. Suspect RA pacemaker lead present The interatrial septum is intact with no evidence for an atrial septal defect. AORTIC VALVE The aortic valve is normal in structure. Mild aortic regurgitation is present. There is no aortic valvular stenosis. MITRAL VALVE The mitral valve is normal in structure. There is no mitral valve stenosis. Moderate mitral valve regurgitation noted. TRICUSPID VALVE The tricuspid valve is normal in structure. There is mild tricuspid valve regurgitation noted. PASP within normal range PULMONIC VALVE The pulmonary valve is normal in structure. There is no pulmonic valvular regurgitation. GREAT VESSELS The aortic root is normal in size. The ascending aorta is normal in size. The pulmonary artery is normal. The IVC is normal in size and collapses >50% with inspiration. PERICARDIAL EFFUSION There is no pericardial effusion. <Conclusion> Mild aortic insufficiency Moderate mitral insufficiency Mild TR with normal PASP Dilated LA and LV There is severe global LV systolic dysfunction, with regional wall motion abnormalities Right heart pacemaker leads The Ejection Fraction is 20-25%. No evidence of valvular vegetation
[2018-03-31 17:22] LABS: ABG ALLEN TEST YES; ARTERIAL BLOOD GAS HCO3 20.8 mmol/L (21-28); ARTERIAL BLOOD GAS O2 SAT 99.9 % (95-98); ARTERIAL BLOOD GAS PCO2 31 mm/Hg (35-45); ARTERIAL BLOOD GAS PH 7.39 (7.35-7.45); ARTERIAL BLOOD GAS PO2 134 mm/Hg (80-100); ARTERIAL BLOOD GAS TCO2 19.8 mmol/L (22-28)
[2018-03-31] MEDS: SODIUM CHLORIDE 0.9% IV SCH (18:15)
[2018-03-31] MEDS: PHENYLEPHRINE IV SCH (18:15)
[2018-03-31] MEDS ORDERED: DEXTROSE 5% IV ONE (19:22)
[2018-03-31] MEDS ORDERED: NOREPINEPHRINE IV ONE (19:22)
[2018-03-31] MEDS ORDERED: WATER IV ONE (19:22)
[2018-03-31] MEDS ORDERED: Sodium Chloride 0.9% 500 ML IV ONE (22:07)
[2018-03-31] MEDS ORDERED: Sodium Chloride 0.9% 1,000 ML IV SCH (22:15)
[2018-03-31 22:33] LABS: VENOUS BLOOD GAS BASE EXCESS -5.5 mmol/L (0.0-2.0); VENOUS BLOOD GAS PCO2 48 mmHg (40-60); VENOUS BLOOD GAS PO2 37 mm/Hg (30-55); VENOUS BLOOD PH 7.26 (7.32-7.43)
[2018-03-31] MEDS ORDERED: Midazolam 2 MG/2 ML VIAL ONE (22:47)
[2018-03-31] MEDS ORDERED: Etomidate 20 mg/10ml Inj IV ONE ×2 (22:59→23:00)
[2018-03-31] MEDS ORDERED: Succinylcholine 200 mg/10 ml Inj IV ONE ×2 (23:00)
[2018-03-31] MEDS ORDERED: Midazolam 2 MG/2 ML VIAL IV ONE (23:20)
--- NOTE | 2018-03-31 23:25 | PCM.ANES ---
Anesthesia Emergent Intubation - Diagnosis Working Diagnosis:: impending resp failure - Consult Reason for Consult:: as above-intubation - Intubation Attempts Previous Number of Intubation Attempts:: 0 By:: [email or web address] peng Intubation Meds Given: Etomidate, Succinylcholine - Airway Management Oropharyngeal Area Suctioned: Yes - Method of Intubation Intubation Method: Oral ETT ETT Size: 8 Lipline@: 22 Easy: Yes Atramatic: Yes - Intubation Devices Canmer Scope Used: Yes - Placement Confirmation Positive EtCO2: Yes
[2018-03-31] MEDS ORDERED: Midazolam HCl 50 MG in Dextrose 5% In Water 90 ML IV ONE (23:27)
[2018-04-01] MEDS: Albuterol-Ipratrop 3 mg / 0.5 (3 ml) UD INH SCH ×5 (00:21→15:24)
[2018-04-01] MEDS: Clindamycin 600mg/50ml D5W 600 MG/50 ML VIAL IVPB SCH ×2 (00:38→09:04)
[2018-04-01 01:18] LABS: ABG ALLEN TEST YES; ARTERIAL BLOOD GAS HCO3 18.7 mmol/L (21-28); ARTERIAL BLOOD GAS O2 CAPACITY 14.6 mL/dL (16-24); ARTERIAL BLOOD GAS O2 CONTENT 14.7 ML/dL (15-23); ARTERIAL BLOOD GAS O2 SAT 100.8 % (95-98); ARTERIAL BLOOD GAS PCO2 36 mm/Hg (35-45); ARTERIAL BLOOD GAS PO2 315 mm/Hg (80-100); ARTERIAL BLOOD GAS TCO2 18.8 mmol/L (22-28)
[2018-04-01] MEDS: DOBUTamine 500mg/250ml D5W 500 MG/250 ML BAG IV SCH ×2 (03:30→10:42)
[2018-04-01] MEDS: PHENYLEPHRINE IV SCH (04:17)
[2018-04-01] MEDS: SODIUM CHLORIDE 0.9% IV SCH (04:17)
[2018-04-01 05:57] LABS: CALCIUM 7.9 mg/dL (8.4-10.2)
[2018-04-01 06:04] LABS: HEMOGLOBIN 9.7 g/dL (12.0-18.0); MEAN CELL VOLUME 95.8 fl (80.0-94.0); MEAN CORPUSCULAR HEMOGLOBIN 30.9 pg (27.0-31.0); MEAN CORPUSCULAR HGB CONC 32.3 g/dL (33.0-37.0); RBC 3.13 Mil/uL (4.40-5.90); RED CELL DISTRIBUTION WIDTH 21.1 % (11.5-14.5); WHITE BLOOD COUNT 10.2 K/uL (4.8-10.8)
[2018-04-01 06:13] LABS: ABG ALLEN TEST YES; ARTERIAL BLOOD GAS HCO3 19.9 mmol/L (21-28); ARTERIAL BLOOD GAS HEMOGLOBIN 9.8 g/dL (11.7-17.4); ARTERIAL BLOOD GAS O2 CAPACITY 13.8 mL/dL (16-24); ARTERIAL BLOOD GAS O2 CONTENT 13.9 ML/dL (15-23); ARTERIAL BLOOD GAS O2 SAT 100.5 % (95-98); ARTERIAL BLOOD GAS PCO2 31 mm/Hg (35-45); ARTERIAL BLOOD GAS PH 7.37 (7.35-7.45); ARTERIAL BLOOD GAS PO2 183 mm/Hg (80-100); ARTERIAL BLOOD GAS TCO2 18.9 mmol/L (22-28)
[2018-04-01] MEDS ORDERED: Sodium Chloride 0.9% 500 ML IV ONE (06:43)
[2018-04-01] MEDS ORDERED: DOPamine 400mg/250ml D5W 400 MG/250 ML BAG IV ONE ×2 (06:50)
--- NOTE | 2018-04-01 08:31 | RAD ---
Date of service: 03/31/2018 HISTORY: reintubated and OGT placement COMPARISON: 03/30/2018. FINDINGS: Endotracheal tube terminates 2.3 cm proximal to the kailee. Nasogastric tube terminates in the stomach. LUNGS: There is mild pulmonary venous congestion. Haziness in the perihilar regions likely represent pulmonary edema. PLEURA: There are layering pleural effusions, no pneumothorax apparent. CARDIOVASCULAR: There is mild cardiomegaly. There is stable position of left-sided pacemaker. OSSEOUS STRUCTURES: No significant abnormalities. VISUALIZED UPPER ABDOMEN: Normal. OTHER FINDINGS: None. IMPRESSION: No change in presumable perihilar pulmonary edema and layering pleural effusions. Endotracheal tube terminates 2.3 cm proximal to the kailee.
--- NOTE | 2018-04-01 08:41 | RAD ---
Date of service: 04/01/2018 HISTORY: REEVALUATE COMPARISON: 03/31/2018. FINDINGS: Stable position of endotracheal and nasogastric tubes. LUNGS: Worsening pulmonary edema. PLEURA: Worsening layering pleural effusions, no pneumothorax apparent. CARDIOVASCULAR: Stable. OSSEOUS STRUCTURES: No significant abnormalities. VISUALIZED UPPER ABDOMEN: Normal. OTHER FINDINGS: None. IMPRESSION: Worsening congestive heart failure with worsening pulmonary edema and effusions. .
[2018-04-01] MEDS: Meropenem 1 GM in Sodium Chloride 0.9% 100 ML IVPB SCH (09:06)
[2018-04-01 11:06] LABS: VENOUS BLOOD GAS BASE EXCESS -4.4 mmol/L (0.0-2.0); VENOUS BLOOD GAS PCO2 48 mmHg (40-60); VENOUS BLOOD GAS PO2 39 mm/Hg (30-55); VENOUS BLOOD PH 7.28 (7.32-7.43)
--- NOTE | 2018-04-01 11:10 | CP.CCUPN ---
<TebbettsLinda gregorytan - Last Filed: 04/01/18 12:10> CCU Subjective - Physician Review Subjective (Free Text): 04/01/18 10:45 Pt seen and examined this morning during rounds. Pt is drowsy and responds to voice somewhat. Pt was re-intubated last night for respiratory failure and on mechanical ventilation. has OG tube Pt is hemodynamically unstable, currently on 3 pressors for cardiogenic shock Receiving 3 abx ( IV vancomycin, meropenem and clindamycin). Afebrile last 2 days. CCU Objective - Vital Signs / Intake & Output Vital Signs (Last 4 hours): Vital Signs Temp Pulse Resp BP Pulse Ox 04/01/18 10:42 113 H 15 69/50 L 91 L 04/01/18 09:29 91/55 L 04/01/18 08:00 98.3 F 107 H 95 H 73/46 L 19 L 04/01/18 07:00 112 H 14 79/21 L 98 Intake and Output (Last 8hrs): Intake & Output 03/31/18 04/01/18 04/01/18 22:59 06:59 14:59 Intake Total 2196 1906 201 Output Total 75 30 Balance 2121 1876 201 Intake: IV 2196 1806 201 Intake, Piggyback 100 Output: Urine 75 30 Urethral (Chen) 75 30 - Physical Exam Head: Positive for: Atraumatic, Other (Jaundiced) Pupils: Positive for: PERRL Extroacular Muscles: Positive for: EOMI Conjunctiva: Positive for: Normal Mouth: Positive for: Other (Intubated) Neck: Positive for: Trachea Midline Respiratory/Chest: Positive for: Decreased Breath Sounds, Rales, Rhonchi, Tachypneic. Negative for: Clear to Auscultation, Good Air Exchange, Wheezes Cardiovascular: Positive for: Regular Rate and Rhythm, Normal S1, S2, Peripheal Pulses Present, Tachycardic Abdomen: Positive for: Normal Bowel Sounds. Negative for: Tenderness, Distention, Peritoneal Signs Upper Extremity: Positive for: Edema (mild) Lower Extremity: Negative for: Edema Neurological: Positive for: Other (drowsy, opens eyes when calling pts name) Skin: Positive for: Other Psychiatric: Positive for: Alert. Negative for: Oriented x 3 - Medications Active Medications: Active Medications Generic Name Dose Route Start Last Admin Trade Name Freq PRN Reason Stop Dose Admin Acetaminophen 650 mg 03/13/18 01:35 03/24/18 21:00 Tylenol 325mg Tab PO 650 mg Q4 PRN Administration Pain, Mild (1-3) Acetaminophen 650 mg 03/25/18 23:46 03/29/18 20:12 Tylenol 650 Mg Supp OK 650 mg Q6 PRN Administration Fever >100.4 F Acetaminophen 650 mg 03/27/18 15:04 Tylenol 650 Mg Supp OK ONCE PRN Fever >100.4 F Albuterol/Ipratropium 3 ml 03/26/18 20:00 04/01/18 07:23 Duoneb 3 Mg/0.5 Mg (3 Ml) Ud INH 3 ml RQ4 EUGENIO Administration Bisacodyl 10 mg 03/13/18 01:35 03/27/18 09:01 Dulcolax OK 10 mg DAILY PRN Administration No bowel movement x3days Furosemide 40 mg 03/30/18 09:15 04/01/18 09:29 Lasix IV Not Given BID EUGENIO Heparin Sodium (Porcine) 5,000 units 03/25/18 09:00 04/01/18 09:27 Heparin SC 5,000 units Q12 EUGENIO Administration Protocol Vancomycin HCl 750 mg/ Sodium 250 mls @ 166.667 mls/hr 03/27/18 21:00 22:35 Chloride IVPB 166.667 mls/hr Q12 EUGENIO Administration Protocol Meropenem 1 gm/ Sodium 100 mls @ 100 mls/hr 03/30/18 09:00 04/01/18 09:06 Chloride IVPB 100 mls/hr Q12 EUGENIO Administration Protocol Phenylephrine HCl 120 mg/ 512 mls @ 46.08 mls/hr 03/31/18 16:30 04/01/18 04: 17 Sodium Chloride IV 04/01/18 16:21 180 mcg/min .Q11H7M EUGENIO 46.08 mls/hr Protocol Administration 180 MCG/MIN Norepinephrine Bitartrate 32 1,032 mls @ 58.05 mls/hr 03/31/18 19:22 21:16 mg/ Dextrose IV 04/01/18 13:08 30 mcg/min .[id number] ONE 58.05 mls/hr Protocol Administration 30 MCG/MIN Sodium Chloride 1,000 mls @ 75 mls/hr 03/31/18 22:15 03/31/18 23:15 Sodium Chloride 0.9% IV 04/01/18 22:07 75 mls/hr .[id number] EUGENIO Administration Clindamycin Phosphate 600 mg in 50 mls @ 46.296 mls/hr 04/01/18 01:00 09:04 Cleocin IVPB 46.296 mls/hr Q8 EUGENIO Administration Protocol Dobutamine HCl/Dextrose 500 mg in 250 mls @ 20.003 mls/hr 04/01/18 03:45 10:42 Dobutamine/Dextrose 5% 500mg/250ml IV 19.5 mcg/kg/min .[id number] EUGENIO 52.009 mls/hr Protocol Administration 7.5 MCG/KG/MIN Dopamine HCl 800 mg/ Dextrose 270 mls @ 9 mls/hr 04/01/18 08:00 04/01/18 10: 12 IV 04/02/18 07:49 7 mcg/kg/min .Q24H EUGENIO 12.6 mls/hr Protocol Titration 5 MCG/KG/MIN Lorazepam 1 mg 04/01/18 08:29 04/01/18 10:11 Ativan IVP 1 mg Q4 PRN Administration Agitation Magnesium Hydroxide 30 ml 03/13/18 01:35 Milk Of Magnesia PO HS PRN No bowel movement x2 days Pantoprazole Sodium 40 mg 04/01/18 09:00 04/01/18 09:07 Protonix Inj IVP 40 mg Q12 EUGENIO Administration - Patient Studies Lab Studies: Microbiology Studies 03/29/18 21:16 Blood Culture - Preliminary Blood-Venous NO GROWTH AFTER 48 HOURS 03/29/18 21:06 Blood Culture - Preliminary Blood-Venous NO GROWTH AFTER 48 HOURS 03/29/18 10:07 Gram Stain - Final Sputum Induced 03/27/18 12:16 Blood Culture - Preliminary Blood-Thru Central Line NO GROWTH AFTER 4 DAYS 03/27/18 12:16 Blood Culture - Preliminary Blood-Venous NO GROWTH AFTER 4 DAYS 03/29/18 09:55 Urine Culture - Final Urine,Catheterized No Growth (<1,000 CFU/ML) Lab Studies 04/01/18 04/01/18 04/01/18 Range/Units 06:13 05:44 04:00 WBC 10.2 (4.8-10.8) K/uL RBC 3.13 L (4.40-5.90) Mil/uL Hgb 9.7 L (12.0-18.0) g/dL Hct 30.0 L (35.0-51.0) % MCV 95.8 H (80.0-94.0) fl MCH 30.9 (27.0-31.0) pg MCHC 32.3 L (33.0-37.0) g/dL RDW 21.1 H (11.5-14.5) % Plt Count 302 (130-400) K/uL pCO2 31 L (35-45) mm/Hg pO2 183 H (80-100) mm/Hg HCO3 19.9 L (21-28) mmol/L ABG pH 7.37 (7.35-7.45) ABG Total CO2 18.9 L (22-28) mmol/L ABG O2 Saturation 100.5 H (95-98) % ABG O2 Content 13.9 L (15-23) ML/dL ABG Base Excess -6.5 L (-2.0-3.0) mmol/L ABG Hemoglobin 9.8 L (11.7-17.4) g/dL ABG Carboxyhemoglobin 1.5 (0.5-1.5) % POC ABG HHb (Measured) -0.5 L (0.0-5.0) % ABG Methemoglobin 1.1 (0.0-3.0) % ABG O2 Capacity 13.8 L (16-24) mL/dL Chris Test Yes ABG Potassium (3.6-5.2) mmol/L VBG pH (7.32-7.43) VBG pCO2 (40-60) mmHg VBG HCO3 mmol/L VBG O2 Sat (Calc) (40-65) % VBG Base Excess (0.0-2.0) mmol/L VBG Hgb O2 Saturation (95.0-98.0) % A-a O2 Difference 135.0 mm/Hg Hemoglobin (11.7-17.4) g/dL Hgb O2 Saturation 98.0 (95.0-98.0) % Sodium 129 L (132-148) mmol/L Chloride 94 L (98-107) mmol/L Glucose (75-110) mg/dL Lactate (0.7-2.1) mmol/L Vent Mode A/c Mechanical Rate 12 FiO2 50.0 % Tidal Volume 500 PEEP 0 Crit Value Called To Dr rell stephens Crit Value Called By Wilber Crit Value Read Back Y Blood Gas Notified Time 613 Potassium 5.2 H (3.6-5.0) MMOL/L Carbon Dioxide 18 L (22-30) mmol/L Anion Gap 22 H (10-20) BUN 39 H (9-20) mg/dl Creatinine 2.3 H (0.8-1.5) mg/dl Est GFR ( Amer) 34 Est GFR (Non-Af Amer) 28 Random Glucose 85 (75-110) mg/dL Calcium 7.9 L (8.4-10.2) mg/dL Arterial Blood Potassium (3.6-5.2) mmol/L 04/01/18 03/31/18 03/31/18 Range/Units 01:17 22:25 17:04 WBC (4.8-10.8) K/uL RBC (4.40-5.90) Mil/uL Hgb (12.0-18.0) g/dL Hct (35.0-51.0) % MCV (80.0-94.0) fl MCH (27.0-31.0) pg MCHC (33.0-37.0) g/dL RDW (11.5-14.5) % Plt Count (130-400) K/uL pCO2 36 31 L (35-45) mm/Hg pO2 315 H 37 134 H (80-100) mm/Hg HCO3 18.7 L 20.8 L (21-28) mmol/L ABG pH 7.30 L 7.39 (7.35-7.45) ABG Total CO2 18.8 L 19.8 L (22-28) mmol/L ABG O2 Saturation 100.8 H 99.9 H (95-98) % ABG O2 Content 14.7 L (15-23) ML/dL ABG Base Excess -8.0 L -5.3 L (-2.0-3.0) mmol/L ABG Hemoglobin 10.0 L (11.7-17.4) g/dL ABG Carboxyhemoglobin 1.4 0.6 (0.5-1.5) % POC ABG HHb (Measured) -0.8 L 69.9 H (0.0-5.0) % ABG Methemoglobin 1.0 1.9 (0.0-3.0) % ABG O2 Capacity 14.6 L (16-24) mL/dL Chris Test Yes Yes ABG Potassium 4.9 (3.6-5.2) mmol/L VBG pH 7.26 L (7.32-7.43) VBG pCO2 48 (40-60) mmHg VBG HCO3 19.2 mmol/L VBG O2 Sat (Calc) 28.3 L (40-65) % VBG Base Excess -5.5 L (0.0-2.0) mmol/L VBG Hgb O2 Saturation 27.6 L (95.0-98.0) % A-a O2 Difference 353.0 184.0 mm/Hg Hemoglobin 10.1 L (11.7-17.4) g/dL Hgb O2 Saturation 98.4 H (95.0-98.0) % Sodium 126.0 L (132-148) mmol/L Chloride 93.0 L (98-107) mmol/L Glucose 98 (75-110) mg/dL Lactate 6.3 H* (0.7-2.1) mmol/L Vent Mode A/c Mechanical Rate 12 FiO2 100.0 50.0 % Tidal Volume 500 PEEP 0 Crit Value Called To Dr rell berger Crit Value Called By Wilber Merino Crit Value Read Back Y Y Y Blood Gas Notified Time 118 [id number] [id number] Potassium (3.6-5.0) MMOL/L Carbon Dioxide (22-30) mmol/L Anion Gap (10-20) BUN (9-20) mg/dl Creatinine (0.8-1.5) mg/dl Est GFR ( Amer) Est GFR (Non-Af Amer) Random Glucose (75-110) mg/dL Calcium (8.4-10.2) mg/dL Arterial Blood Potassium 4.9 (3.6-5.2) mmol/L Laboratory Results - last 24 hr 03/31/18 03/31/18 04/01/18 17:04 22:25 01:17 WBC RBC Hgb Hct MCV MCH MCHC RDW Plt Count pCO2 31 L 36 pO2 134 H 37 315 H HCO3 20.8 L 18.7 L ABG pH 7.39 7.30 L ABG Total CO2 19.8 L 18.8 L ABG O2 Saturation 99.9 H 100.8 H ABG O2 Content 14.7 L ABG Base Excess -5.3 L -8.0 L ABG Hemoglobin 10.0 L ABG Carboxyhemoglobin 0.6 1.4 POC ABG HHb (Measured) 69.9 H -0.8 L ABG Methemoglobin 1.9 1.0 ABG O2 Capacity 14.6 L Chris Test Yes Yes ABG Potassium 4.9 VBG pH 7.26 L VBG pCO2 48 VBG HCO3 19.2 VBG O2 Sat (Calc) 28.3 L VBG Base Excess -5.5 L VBG Hgb O2 Saturation 27.6 L A-a O2 Difference 184.0 353.0 Hemoglobin 10.1 L Hgb O2 Saturation 98.4 H Sodium 126.0 L Chloride 93.0 L Glucose 98 Lactate 6.3 H* Vent Mode A/c Mechanical Rate 12 FiO2 50.0 100.0 Tidal Volume 500 PEEP 0 Crit Value Called To Dr lizette stephens Crit Value Called By Wilber Merino Crit Value Read Back Y Y Y Blood Gas Notified Time [id number] Potassium Carbon Dioxide Anion Gap BUN Creatinine Est GFR ( Amer) Est GFR (Non-Af Amer) Random Glucose Calcium Arterial Blood Potassium 4.9 04/01/18 04/01/18 04/01/18 04:00 05:44 06:13 WBC 10.2 RBC 3.13 L Hgb 9.7 L Hct 30.0 L MCV 95.8 H MCH 30.9 MCHC 32.3 L RDW 21.1 H Plt Count 302 pCO2 31 L pO2 183 H HCO3 19.9 L ABG pH 7.37 ABG Total CO2 18.9 L ABG O2 Saturation 100.5 H ABG O2 Content 13.9 L ABG Base Excess -6.5 L ABG Hemoglobin 9.8 L ABG Carboxyhemoglobin 1.5 POC ABG HHb (Measured) -0.5 L ABG Methemoglobin 1.1 ABG O2 Capacity 13.8 L Chris Test Yes ABG Potassium VBG pH VBG pCO2 VBG HCO3 VBG O2 Sat (Calc) VBG Base Excess VBG Hgb O2 Saturation A-a O2 Difference 135.0 Hemoglobin Hgb O2 Saturation 98.0 Sodium 129 L Chloride 94 L Glucose Lactate Vent Mode A/c Mechanical Rate 12 FiO2 50.0 Tidal Volume 500 PEEP 0 Crit Value Called To Dr rell stephens Crit Value Called By Wilber Crit Value Read Back Y Blood Gas Notified Time 613 Potassium 5.2 H Carbon Dioxide 18 L Anion Gap 22 H BUN 39 H Creatinine 2.3 H Est GFR ( Amer) 34 Est GFR (Non-Af Amer) 28 Random Glucose 85 Calcium 7.9 L Arterial Blood Potassium Fingerstick Blood Sugar Results: 88 Review of Systems - Review of Systems Review of Systems: Unable to obtain s/p intubation. Assessment/Plan - Assessment and Plan (Free Text) Assessment: 77 yo male with PMHx CVA, hepatitis A & B, CHF, AICD, COPD, long term resident, mild to moderate dementia. Pt was admitted to telemetry on 03/12 for AMS, weakness, jaundice. [employer] was called on 03/16/18 for worsening dyspnea. Pt was subsequently intubated and admitted to ICU on 03/16 for acute respiratory failure. Pt was briefly extubated and re-intubated on 03/21/18 due to respiratory distress. Chest CT on 03/24/18 shows b/l pleural effusion with compressive atelectasis B/L. Pt had thoracentesis of right pleural effusion and drained 1250 cc of yellow fluids and thoracentesis of left pleural effusion with drainage of 400 cc. Pt was extubated on 03/27/18 and re-intubated last night due to respiratory distress. Neuro: altered mental status, s/p intubation -Ativan 1 mg ivp q4h prn for agitation. Pulmonary: -Acute respiratory failure with hypoxia with HCAP with pleural effusion, CHF and acute pulmonary edema -S/P re-intubation last night. -S/P B/L throacentesis -Blood cx on 03/24/18 shows gram positive cocci. -Continue on vancomycin 750 mg ivp q12 -Sputum cx on 03/27/18 shows Serratia marcescens, sensitive to meropenem. Cardiovascular: -T[employer]iner Dr. Peralta on board -CHF: Echocardiogram on 02/10/18: EF 20-25% -Cardiogenic shock: currently on three pressors ( dobutamine, norepinephrine and phenylepherine). Possible transfer to [facility] for IABP. GI: -GI on board -Stable H&H -Continue protonix 40 mg IV q12h for possible bleeding ulcer. Renal: -Strict monitor of Intake and output -Positive balance of 2590 yesterday with 420 ml urine output. this morning only 105 ml urine output. -Acute kideny injury: BUN/Cr: 39/2.3, eGFR 34 -Hyperkalemia: 5.2 -Continue with NS @75 mls/hr -Continue with lasix 40 mg IPV q12 -Nephrology consult requested. ID: - on board -Bacteremia (blood cx on 03/24/18 shows gram positive cocci) -Continue on vancomycin 750 mg ivp q12 -Sputum cx on 03/27/18 shows Serratia marcescens, sensitive to meropenem. -Continue meropenem -Continue clindamycin for aspiration PNA coverage DVT prophylaxis - SCD's, SQ heparin GI prophylaxis - protonix IV q12h Code status - full code <Lizette Berger M - Last Filed: 04/01/18 12:15> CCU Objective - Vital Signs / Intake & Output Vital Signs (Last 4 hours): Vital Signs Pulse Resp BP Pulse Ox 04/01/18 11:00 113 H 20 66/17 L 91 L 04/01/18 10:42 113 H 15 69/50 L 91 L 04/01/18 10:00 113 H 28 H 86/49 L 94 L 04/01/18 09:29 91/55 L 04/01/18 09:00 107 H 25 H 91/55 L 91 L Intake and Output (Last 8hrs): Intake & Output 03/31/18 04/01/18 04/01/18 22:59 06:59 14:59 Intake Total 2196 1906 201 Output Total 75 30 Balance 2121 1876 201 Intake: IV 2196 1806 201 Intake, Piggyback 100 Output: Urine 75 30 Urethral (Chen) 75 30 - Medications Active Medications: Active Medications Generic Name Dose Route Start Last Admin Trade Name Freq PRN Reason Stop Dose Admin Acetaminophen 650 mg 03/13/18 01:35 03/24/18 21:00 Tylenol 325mg Tab PO 650 mg Q4 PRN Administration Pain, Mild (1-3) Acetaminophen 650 mg 03/25/18 23:46 03/29/18 20:12 Tylenol 650 Mg Supp OK 650 mg Q6 PRN Administration Fever >100.4 F Acetaminophen 650 mg 03/27/18 15:04 Tylenol 650 Mg Supp OK ONCE PRN Fever >100.4 F Albuterol/Ipratropium 3 ml 03/26/18 20:00 04/01/18 11:18 Duoneb 3 Mg/0.5 Mg (3 Ml) Ud INH 3 ml RQ4 EUGENIO Administration Bisacodyl 10 mg 03/13/18 01:35 03/27/18 09:01 Dulcolax OK 10 mg DAILY PRN Administration No bowel movement x3days Furosemide 40 mg 03/30/18 09:15 04/01/18 09:29 Lasix IV Not Given BID EUGENIO Heparin Sodium (Porcine) 5,000 units 03/25/18 09:00 04/01/18 09:27 Heparin SC 5,000 units Q12 EUGENIO Administration Protocol Vancomycin HCl 750 mg/ Sodium 250 mls @ 166.667 mls/hr 03/27/18 21:00 22:35 Chloride IVPB 166.667 mls/hr Q12 EUGENIO Administration Protocol Meropenem 1 gm/ Sodium 100 mls @ 100 mls/hr 03/30/18 09:00 04/01/18 09:06 Chloride IVPB 100 mls/hr Q12 EUGENIO Administration Protocol Phenylephrine HCl 120 mg/ 512 mls @ 46.08 mls/hr 03/31/18 16:30 04/01/18 04: 17 Sodium Chloride IV 04/01/18 16:21 180 mcg/min .Q11H7M EUGENIO 46.08 mls/hr Protocol Administration 180 MCG/MIN Norepinephrine Bitartrate 32 1,032 mls @ 58.05 mls/hr 03/31/18 19:22 21:16 mg/ Dextrose IV 04/01/18 13:08 30 mcg/min .[id number] ONE 58.05 mls/hr Protocol Administration 30 MCG/MIN Clindamycin Phosphate 600 mg in 50 mls @ 46.296 mls/hr 04/01/18 01:00 09:04 Cleocin IVPB 46.296 mls/hr Q8 EUGENIO Administration Protocol Dobutamine HCl/Dextrose 500 mg in 250 mls @ 20.003 mls/hr 04/01/18 03:45 10:42 Dobutamine/Dextrose 5% 500mg/250ml IV 19.5 mcg/kg/min .[id number] EUGENIO 52.009 mls/hr Protocol Administration 7.5 MCG/KG/MIN Dopamine HCl 800 mg/ Dextrose 270 mls @ 9 mls/hr 04/01/18 08:00 04/01/18 11: 46 IV 04/02/18 07:49 15 mcg/kg/min .Q24H EUGENIO 27 mls/hr Protocol Titration 5 MCG/KG/MIN Lorazepam 1 mg 04/01/18 08:29 04/01/18 10:11 Ativan IVP 1 mg Q4 PRN Administration Agitation Magnesium Hydroxide 30 ml 03/13/18 01:35 Milk Of Magnesia PO HS PRN No bowel movement x2 days Pantoprazole Sodium 40 mg 04/01/18 09:00 04/01/18 09:07 Protonix Inj IVP 40 mg Q12 EUGENIO Administration - Patient Studies Lab Studies: Microbiology Studies 03/29/18 10:07 Gram Stain - Final Sputum Induced Sputum Culture - Preliminary Gram Negative Vahid 03/29/18 21:16 Blood Culture - Preliminary Blood-Venous NO GROWTH AFTER 48 HOURS 03/29/18 21:06 Blood Culture - Preliminary Blood-Venous NO GROWTH AFTER 48 HOURS 03/27/18 12:16 Blood Culture - Preliminary Blood-Thru Central Line NO GROWTH AFTER 4 DAYS 03/27/18 12:16 Blood Culture - Preliminary Blood-Venous NO GROWTH AFTER 4 DAYS 03/29/18 09:55 Urine Culture - Final Urine,Catheterized No Growth (<1,000 CFU/ML) Lab Studies 04/01/18 04/01/18 04/01/18 Range/Units 10:50 06:13 05:44 WBC (4.8-10.8) K/uL RBC (4.40-5.90) Mil/uL Hgb (12.0-18.0) g/dL Hct (35.0-51.0) % MCV (80.0-94.0) fl MCH (27.0-31.0) pg MCHC (33.0-37.0) g/dL RDW (11.5-14.5) % Plt Count (130-400) K/uL pCO2 31 L (35-45) mm/Hg pO2 39 183 H (80-100) mm/Hg HCO3 19.9 L (21-28) mmol/L ABG pH 7.37 (7.35-7.45) ABG Total CO2 18.9 L (22-28) mmol/L ABG O2 Saturation 100.5 H (95-98) % ABG O2 Content 13.9 L (15-23) ML/dL ABG Base Excess -6.5 L (-2.0-3.0) mmol/L ABG Hemoglobin 9.8 L (11.7-17.4) g/dL ABG Carboxyhemoglobin 1.5 (0.5-1.5) % POC ABG HHb (Measured) -0.5 L (0.0-5.0) % ABG Methemoglobin 1.1 (0.0-3.0) % ABG O2 Capacity 13.8 L (16-24) mL/dL Chris Test Yes ABG Potassium (3.6-5.2) mmol/L VBG pH 7.28 L (7.32-7.43) VBG pCO2 48 (40-60) mmHg VBG HCO3 20.6 mmol/L VBG Total CO2 24.1 (22-28) mmol/L VBG O2 Sat (Calc) 33.9 L (40-65) % VBG Base Excess -4.4 L (0.0-2.0) mmol/L VBG Hgb O2 Saturation (95.0-98.0) % VBG Potassium 4.6 (3.6-5.2) mmol/L A-a O2 Difference 135.0 mm/Hg Hemoglobin (11.7-17.4) g/dL Hgb O2 Saturation 98.0 (95.0-98.0) % Sodium 124.0 L 129 L (132-148) mmol/L Chloride 94.0 L 94 L (98-107) mmol/L Glucose 112 H (75-110) mg/dL Lactate 3.2 H (0.7-2.1) mmol/L Vent Mode A/c Mechanical Rate 12 FiO2 50.0 50.0 % Tidal Volume 500 PEEP 0 0 Crit Value Called To Dr rell stephens Crit Value Called By Wilber Crit Value Read Back Y Blood Gas Notified Time 613 Potassium 5.2 H (3.6-5.0) MMOL/L Carbon Dioxide 18 L (22-30) mmol/L Anion Gap 22 H (10-20) BUN 39 H (9-20) mg/dl Creatinine 2.3 H (0.8-1.5) mg/dl Est GFR ( Amer) 34 Est GFR (Non-Af Amer) 28 Random Glucose 85 (75-110) mg/dL Calcium 7.9 L (8.4-10.2) mg/dL Arterial Blood Potassium (3.6-5.2) mmol/L Venous Blood Potassium 4.6 (3.6-5.2) mmol/L 04/01/18 04/01/18 03/31/18 Range/Units 04:00 01:17 22:25 WBC 10.2 (4.8-10.8) K/uL RBC 3.13 L (4.40-5.90) Mil/uL Hgb 9.7 L (12.0-18.0) g/dL Hct 30.0 L (35.0-51.0) % MCV 95.8 H (80.0-94.0) fl MCH 30.9 (27.0-31.0) pg MCHC 32.3 L (33.0-37.0) g/dL RDW 21.1 H (11.5-14.5) % Plt Count 302 (130-400) K/uL pCO2 36 (35-45) mm/Hg pO2 315 H 37 (80-100) mm/Hg HCO3 18.7 L (21-28) mmol/L ABG pH 7.30 L (7.35-7.45) ABG Total CO2 18.8 L (22-28) mmol/L ABG O2 Saturation 100.8 H (95-98) % ABG O2 Content 14.7 L (15-23) ML/dL ABG Base Excess -8.0 L (-2.0-3.0) mmol/L ABG Hemoglobin 10.0 L (11.7-17.4) g/dL ABG Carboxyhemoglobin 1.4 0.6 (0.5-1.5) % POC ABG HHb (Measured) -0.8 L 69.9 H (0.0-5.0) % ABG Methemoglobin 1.0 1.9 (0.0-3.0) % ABG O2 Capacity 14.6 L (16-24) mL/dL Chris Test Yes ABG Potassium (3.6-5.2) mmol/L VBG pH 7.26 L (7.32-7.43) VBG pCO2 48 (40-60) mmHg VBG HCO3 19.2 mmol/L VBG Total CO2 (22-28) mmol/L VBG O2 Sat (Calc) 28.3 L (40-65) % VBG Base Excess -5.5 L (0.0-2.0) mmol/L VBG Hgb O2 Saturation 27.6 L (95.0-98.0) % VBG Potassium (3.6-5.2) mmol/L A-a O2 Difference 353.0 mm/Hg Hemoglobin 10.1 L (11.7-17.4) g/dL Hgb O2 Saturation 98.4 H (95.0-98.0) % Sodium (132-148) mmol/L Chloride (98-107) mmol/L Glucose (75-110) mg/dL Lactate (0.7-2.1) mmol/L Vent Mode A/c Mechanical Rate 12 FiO2 100.0 % Tidal Volume 500 PEEP 0 Crit Value Called To Dr rell stephens Crit Value Called By Wilber Merino Crit Value Read Back Y Y Blood Gas Notified Time 118 2233 Potassium (3.6-5.0) MMOL/L Carbon Dioxide (22-30) mmol/L Anion Gap (10-20) BUN (9-20) mg/dl Creatinine (0.8-1.5) mg/dl Est GFR ( Amer) Est GFR (Non-Af Amer) Random Glucose (75-110) mg/dL Calcium (8.4-10.2) mg/dL Arterial Blood Potassium (3.6-5.2) mmol/L Venous Blood Potassium (3.6-5.2) mmol/L 03/31/18 Range/Units 17:04 WBC (4.8-10.8) K/uL RBC (4.40-5.90) Mil/uL Hgb (12.0-18.0) g/dL Hct (35.0-51.0) % MCV (80.0-94.0) fl MCH (27.0-31.0) pg MCHC (33.0-37.0) g/dL RDW (11.5-14.5) % Plt Count (130-400) K/uL pCO2 31 L (35-45) mm/Hg pO2 134 H (80-100) mm/Hg HCO3 20.8 L (21-28) mmol/L ABG pH 7.39 (7.35-7.45) ABG Total CO2 19.8 L (22-28) mmol/L ABG O2 Saturation 99.9 H (95-98) % ABG O2 Content (15-23) ML/dL ABG Base Excess -5.3 L (-2.0-3.0) mmol/L ABG Hemoglobin (11.7-17.4) g/dL ABG Carboxyhemoglobin (0.5-1.5) % POC ABG HHb (Measured) (0.0-5.0) % ABG Methemoglobin (0.0-3.0) % ABG O2 Capacity (16-24) mL/dL Chris Test Yes ABG Potassium 4.9 (3.6-5.2) mmol/L VBG pH (7.32-7.43) VBG pCO2 (40-60) mmHg VBG HCO3 mmol/L VBG Total CO2 (22-28) mmol/L VBG O2 Sat (Calc) (40-65) % VBG Base Excess (0.0-2.0) mmol/L VBG Hgb O2 Saturation (95.0-98.0) % VBG Potassium (3.6-5.2) mmol/L A-a O2 Difference 184.0 mm/Hg Hemoglobin (11.7-17.4) g/dL Hgb O2 Saturation (95.0-98.0) % Sodium 126.0 L (132-148) mmol/L Chloride 93.0 L (98-107) mmol/L Glucose 98 (75-110) mg/dL Lactate 6.3 H* (0.7-2.1) mmol/L Vent Mode Mechanical Rate FiO2 50.0 % Tidal Volume PEEP Crit Value Called To Dr lizette berger Crit Value Called By Wilber Crit Value Read Back Y Blood Gas Notified Time 172 Potassium (3.6-5.0) MMOL/L Carbon Dioxide (22-30) mmol/L Anion Gap (10-20) BUN (9-20) mg/dl Creatinine (0.8-1.5) mg/dl Est GFR ( Amer) Est GFR (Non-Af Amer) Random Glucose (75-110) mg/dL Calcium (8.4-10.2) mg/dL Arterial Blood Potassium 4.9 (3.6-5.2) mmol/L Venous Blood Potassium (3.6-5.2) mmol/L Laboratory Results - last 24 hr 03/31/18 03/31/18 04/01/18 17:04 22:25 01:17 WBC RBC Hgb Hct MCV MCH MCHC RDW Plt Count pCO2 31 L 36 pO2 134 H 37 315 H HCO3 20.8 L 18.7 L ABG pH 7.39 7.30 L ABG Total CO2 19.8 L 18.8 L ABG O2 Saturation 99.9 H 100.8 H ABG O2 Content 14.7 L ABG Base Excess -5.3 L -8.0 L ABG Hemoglobin 10.0 L ABG Carboxyhemoglobin 0.6 1.4 POC ABG HHb (Measured) 69.9 H -0.8 L ABG Methemoglobin 1.9 1.0 ABG O2 Capacity 14.6 L Chris Test Yes Yes ABG Potassium 4.9 VBG pH 7.26 L VBG pCO2 48 VBG HCO3 19.2 VBG Total CO2 VBG O2 Sat (Calc) 28.3 L VBG Base Excess -5.5 L VBG Hgb O2 Saturation 27.6 L VBG Potassium A-a O2 Difference 184.0 353.0 Hemoglobin 10.1 L Hgb O2 Saturation 98.4 H Sodium 126.0 L Chloride 93.0 L Glucose 98 Lactate 6.3 H* Vent Mode A/c Mechanical Rate 12 FiO2 50.0 100.0 Tidal Volume 500 PEEP 0 Crit Value Called To Dr lizette stephens Crit Value Called By Wilber Merino Mj Crit Value Read Back Y Y Y Blood Gas Notified Time 1721 2233 118 Potassium Carbon Dioxide Anion Gap BUN Creatinine Est GFR ( Amer) Est GFR (Non-Af Amer) Random Glucose Calcium Arterial Blood Potassium 4.9 Venous Blood Potassium 04/01/18 04/01/18 04/01/18 04:00 05:44 06:13 WBC 10.2 RBC 3.13 L Hgb 9.7 L Hct 30.0 L MCV 95.8 H MCH 30.9 MCHC 32.3 L RDW 21.1 H Plt Count 302 pCO2 31 L pO2 183 H HCO3 19.9 L ABG pH 7.37 ABG Total CO2 18.9 L ABG O2 Saturation 100.5 H ABG O2 Content 13.9 L ABG Base Excess -6.5 L ABG Hemoglobin 9.8 L ABG Carboxyhemoglobin 1.5 POC ABG HHb (Measured) -0.5 L ABG Methemoglobin 1.1 ABG O2 Capacity 13.8 L Chris Test Yes ABG Potassium VBG pH VBG pCO2 VBG HCO3 VBG Total CO2 VBG O2 Sat (Calc) VBG Base Excess VBG Hgb O2 Saturation VBG Potassium A-a O2 Difference 135.0 Hemoglobin Hgb O2 Saturation 98.0 Sodium 129 L Chloride 94 L Glucose Lactate Vent Mode A/c Mechanical Rate 12 FiO2 50.0 Tidal Volume 500 PEEP 0 Crit Value Called To Dr rell stephens Crit Value Called By Crit Value Read Back Y Blood Gas Notified Time 613 Potassium 5.2 H Carbon Dioxide 18 L Anion Gap 22 H BUN 39 H Creatinine 2.3 H Est GFR ( Amer) 34 Est GFR (Non-Af Amer) 28 Random Glucose 85 Calcium 7.9 L Arterial Blood Potassium Venous Blood Potassium 04/01/18 10:50 WBC RBC Hgb Hct MCV MCH MCHC RDW Plt Count pCO2 pO2 39 HCO3 ABG pH ABG Total CO2 ABG O2 Saturation ABG O2 Content ABG Base Excess ABG Hemoglobin ABG Carboxyhemoglobin POC ABG HHb (Measured) ABG Methemoglobin ABG O2 Capacity Chris Test ABG Potassium VBG pH 7.28 L VBG pCO2 48 VBG HCO3 20.6 VBG Total CO2 24.1 VBG O2 Sat (Calc) 33.9 L VBG Base Excess -4.4 L VBG Hgb O2 Saturation VBG Potassium 4.6 A-a O2 Difference Hemoglobin Hgb O2 Saturation Sodium 124.0 L Chloride 94.0 L Glucose 112 H Lactate 3.2 H Vent Mode Mechanical Rate FiO2 50.0 Tidal Volume PEEP 0 Crit Value Called To Crit Value Called By Crit Value Read Back Blood Gas Notified Time Potassium Carbon Dioxide Anion Gap BUN Creatinine Est GFR ( Amer) Est GFR (Non-Af Amer) Random Glucose Calcium Arterial Blood Potassium Venous Blood Potassium 4.6 Assessment/Plan (1) Acute respiratory failure Current Visit: Yes Status: Resolved Priority: High Comment: Acute respiratory failure with hypoxia secondary to HCAP with pleural effusion, CHF and acute pulmonary edema S/P B/L throacentesis Continue IV Vanco, Clindamycin and Meropenem Gentle Diuresis Strict I&O, negative fluid balance Aggressive pulmonary toilet, chest PT, suctioning CXR with persistent RLL infilterate, consider repeat chest CT scan NPO (2) Bacteremia Current Visit: Yes Status: Acute Priority: High Comment: Blood cx positive for gram positive cocci Continue IV Vanco, Clindamycin and Meropenem Completed IV micofungin 100 mg IVP Q24 hrs from 03/21 to 03/24 (3) CHF (congestive heart failure) Current Visit: Yes Status: Chronic Priority: High Comment: Continue levophed for BP support, wean as tolerated Continue Dobutamine follow up sVo2 Maintain MAP 65-75 (4) Hypotension Current Visit: Yes Status: Acute Priority: High Comment: Continue levophed for BP support, wean as tolerated Maintain MAP 65-75 Holding coreg (5) Jaundice Current Visit: Yes Status: Acute Priority: High Comment: Patient with hepatitis A & B LFT WNL, H/H Stable GI consulted, Endoscope when more stable or if bleeding worse (6) Thrombocytopenia Current Visit: Yes Status: Resolved Priority: Medium Attending/Attestation - Attestation I have personally seen and examined this patient.: Yes I have fully participated in the care of the patient.: Yes I have reviewed all pertinent clinical information: Yes Notes (Text): 04/01/18 12:12 Today: Sunday, April 01, 2018 The patient was Seen and examined by me at the bedside during ICU round, Medical records reviewed and Management issues were discussed and formulated with the house staff. Events reviewed Critically ill, on multiple Vasopressor, hemodynamically unstable On levophed, Manuel[place] and Dobutamine Dopamine was added today Cardiology consulted for [place] and possible transfer to tertiary care center I have reviewed all the relevant clinical, laboratory, hemodynamic, radiographic data and medications Pain issues, skin care, head of the bed elevation, glycemic control were addressed. Lactate down to 3.2 I concur with resident's assessment and plan of care as transcribed in Dr. Lowry note. Code Status: Full Total critical care time 46 minutes
--- NOTE | 2018-04-01 12:47 | CP.PCM.CON ---
History of Present Illness - History of Present Illness History of Present Illness: this 77 years of age male I was called to see him for abnormal kidney function. 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 absent: Acrocyanosis - Respiratory Respiratory: Dyspnea. absent: Hemoptysis - Gastrointestinal Gastrointestinal: absent: Abdominal Pain, Vomiting - Genitourinary Genitourinary: Nocturia - Musculoskeletal Musculoskeletal: Muscle Weakness - Endocrine Endocrine: Fatigue - Hematologic/Lymphatic Hematologic: absent: Easy Bleeding Past Patient History - Past Medical History & Family History Past Medical History?: Yes - Past Social History Smoking Status: Former Smoker Alcohol: None Drugs: Denies Home Situation {Lives}: [facility] - CARDIAC Hx Cardiac Disorders: Yes Hx Congestive Heart Failure: Yes Hx Hypercholesterolemia: Yes Hx Hypertension: Yes Hx Pacemaker: Yes - PULMONARY Hx Respiratory Disorders: Yes Hx Chronic Obstructive Pulmonary Disease (COPD): Yes - NEUROLOGICAL Hx Neurological Disorder: No Hx Dementia: Yes - HEENT Hx HEENT Problems: No - RENAL Hx Chronic Kidney Disease: No - ENDOCRINE/METABOLIC Hx Endocrine Disorders: No - HEMATOLOGICAL/ONCOLOGICAL Hx Blood Disorders: Yes Hx Hepatitis A: Yes Hx Hepatitis B: Yes - INTEGUMENTARY Hx Dermatological Problems: No - MUSCULOSKELETAL/RHEUMATOLOGICAL Hx Musculoskeletal Disorders: Yes Hx Back Pain: Yes Hx Falls: Yes Hx Osteoarthritis: Yes - GASTROINTESTINAL Hx Gastrointestinal Disorders: No - GENITOURINARY/GYNECOLOGICAL Hx Genitourinary Disorders: Yes Hx Prostate Problems: Yes - PSYCHIATRIC Hx Psychophysiologic Disorder: Yes Hx Anxiety: Yes - SURGICAL HISTORY Hx Surgeries: Yes Hx Tonsillectomy: Yes - ANESTHESIA Hx Anesthesia: Yes Hx Anesthesia Reactions: No Hx Malignant Hyperthermia: No Meds Home Medications: Home Medication List Medication Instructions Recorded Confirmed Type [id number] 1 gm [Rocephin 1 gram 1 gm IVPB DAILY #7 bag 03/14/18 Rx IVPB] Allergies/Adverse Reactions: Allergies Allergy/AdvReac Type Severity Reaction Status Date / Time No Known Allergies Allergy Verified 03/12/18 14:17 - Medications Medications: Current Medications Acetaminophen (Tylenol 325mg Tab) 650 mg PO Q4 PRN PRN Reason: Pain, Mild (1-3) Last Admin: 03/24/18 21:00 Dose: 650 mg Acetaminophen (Tylenol 650 Mg Supp) 650 mg NM Q6 PRN PRN Reason: Fever >100.4 F Last Admin: 03/29/18 20:12 Dose: 650 mg Acetaminophen (Tylenol 650 Mg Supp) 650 mg NM ONCE PRN PRN Reason: Fever >100.4 F Albuterol/Ipratropium (Duoneb 3 Mg/0.5 Mg (3 Ml) Ud) 3 ml INH RQ4 EUGENIO Last Admin: 04/01/18 11:18 Dose: 3 ml Bisacodyl (Dulcolax) 10 mg NM DAILY PRN PRN Reason: No bowel movement x3days Last Admin: 03/27/18 09:01 Dose: 10 mg Furosemide (Lasix) 40 mg IV BID EUGENIO Last Admin: 04/01/18 09:29 Dose: Not Given Heparin Sodium (Porcine) (Heparin) 5,000 units SC Q12 EUGENIO PRN Reason: Protocol Last Admin: 04/01/18 09:27 Dose: 5,000 units Vancomycin HCl 750 mg/ Sodium (Chloride) 250 mls @ 166.667 mls/hr IVPB Q12 EUGENIO PRN Reason: Protocol Last Admin: 03/31/18 22:35 Dose: 166.667 mls/hr Meropenem 1 gm/ Sodium (Chloride) 100 mls @ 100 mls/hr IVPB Q12 EUGENIO PRN Reason: Protocol Last Admin: 04/01/18 09:06 Dose: 100 mls/hr Phenylephrine HCl 120 mg/ (Sodium Chloride) 512 mls @ 46.08 mls/hr IV .[id number] EUGENIO; 180 MCG/MIN PRN Reason: Protocol Stop: 04/01/18 16:21 Last Admin: 04/01/18 04:17 Dose: 180 mcg/min, 46.08 mls/hr Norepinephrine Bitartrate 32 (mg/ Dextrose) 1,032 mls @ 58.05 mls/hr IV .[id number] ONE; 30 MCG/MIN PRN Reason: Protocol Stop: 04/01/18 13:08 Last Admin: 03/31/18 21:16 Dose: 30 mcg/min, 58.05 mls/hr Clindamycin Phosphate (Cleocin) 600 mg in 50 mls @ 46.296 mls/hr IVPB Q8 EUGENIO PRN Reason: Protocol Last Admin: 04/01/18 09:04 Dose: 46.296 mls/hr Dobutamine HCl/Dextrose (Dobutamine/Dextrose 5% 500mg/250ml) 500 mg in 250 mls @ 20.003 mls/hr IV .[id number] EUGENIO; 7.5 MCG/KG/MIN PRN Reason: Protocol Last Admin: 04/01/18 10:42 Dose: 19.5 mcg/kg/min, 52.009 mls/hr Dopamine HCl 800 mg/ Dextrose 270 mls @ 9 mls/hr IV .Q24H EUGENIO; 5 MCG/KG/MIN PRN Reason: Protocol Stop: 04/02/18 07:49 Last Titration: 04/01/18 12:36 Dose: 17 mcg/kg/min, 30.6 mls/hr Lorazepam (Ativan) 1 mg IVP Q4 PRN PRN Reason: Agitation Last Admin: 04/01/18 10:11 Dose: 1 mg Magnesium Hydroxide (Milk Of Magnesia) 30 ml PO HS PRN PRN Reason: No bowel movement x2 days Pantoprazole Sodium (Protonix Inj) 40 mg IVP Q12 EUGENIO Last Admin: 04/01/18 09:07 Dose: 40 mg Physical Exam - Constitutional Appears: In Acute Distress - Eye Exam Eye Exam: Conjunctival injection - ENT Exam ENT Exam: Mucous Membranes Moist - Neck Exam Neck exam: Negative for: Lymphadenopathy - Respiratory Exam Respiratory Exam: absent: Chest Wall Tenderness - Cardiovascular Exam Cardiovascular Exam: absent: Gallop, Rubs - GI/Abdominal Exam GI & Abdominal Exam: Distended - Extremities Exam Extremities exam: Negative for: calf tenderness - Back Exam Back exam: absent: CVA tenderness (L), CVA tenderness (R) - Neurological Exam Neurological exam: Altered - Psychiatric Exam Psychiatric exam: Flat Affect Results - Vital Signs Recent Vital Signs: Last Vital Signs Temp 98.6 F 04/01/18 12:00 Pulse 113 H 04/01/18 12:00 Resp 12 04/01/18 12:00 BP 77/53 L 04/01/18 12:00 Pulse Ox 92 L 04/01/18 12:00 - Labs Result Diagrams: 04/01/18 04:00 04/01/18 05:44 Labs: Laboratory Results - last 24 hr 03/31/18 03/31/18 04/01/18 17:04 22:25 01:17 WBC RBC Hgb Hct MCV MCH MCHC RDW Plt Count pCO2 31 L 36 pO2 134 H 37 315 H HCO3 20.8 L 18.7 L ABG pH 7.39 7.30 L ABG Total CO2 19.8 L 18.8 L ABG O2 Saturation 99.9 H 100.8 H ABG O2 Content 14.7 L ABG Base Excess -5.3 L -8.0 L ABG Hemoglobin 10.0 L ABG Carboxyhemoglobin 0.6 1.4 POC ABG HHb (Measured) 69.9 H -0.8 L ABG Methemoglobin 1.9 1.0 ABG O2 Capacity 14.6 L Chris Test Yes Yes ABG Potassium 4.9 VBG pH 7.26 L VBG pCO2 48 VBG HCO3 19.2 VBG Total CO2 VBG O2 Sat (Calc) 28.3 L VBG Base Excess -5.5 L VBG Hgb O2 Saturation 27.6 L VBG Potassium A-a O2 Difference 184.0 353.0 Hemoglobin 10.1 L Hgb O2 Saturation 98.4 H Sodium 126.0 L Chloride 93.0 L Glucose 98 Lactate 6.3 H* Vent Mode A/c Mechanical Rate 12 FiO2 50.0 100.0 Tidal Volume 500 PEEP 0 Crit Value Called To Dr lizette stephens Crit Value Called By Wilber Merino Crit Value Read Back Y Y Y Blood Gas Notified Time [id number] 118 Potassium Carbon Dioxide Anion Gap BUN Creatinine Est GFR ( Amer) Est GFR (Non-Af Amer) Random Glucose Calcium Arterial Blood Potassium 4.9 Venous Blood Potassium 04/01/18 04/01/18 04/01/18 04:00 05:44 06:13 WBC 10.2 RBC 3.13 L Hgb 9.7 L Hct 30.0 L MCV 95.8 H MCH 30.9 MCHC 32.3 L RDW 21.1 H Plt Count 302 pCO2 31 L pO2 183 H HCO3 19.9 L ABG pH 7.37 ABG Total CO2 18.9 L ABG O2 Saturation 100.5 H ABG O2 Content 13.9 L ABG Base Excess -6.5 L ABG Hemoglobin 9.8 L ABG Carboxyhemoglobin 1.5 POC ABG HHb (Measured) -0.5 L ABG Methemoglobin 1.1 ABG O2 Capacity 13.8 L Chris Test Yes ABG Potassium VBG pH VBG pCO2 VBG HCO3 VBG Total CO2 VBG O2 Sat (Calc) VBG Base Excess VBG Hgb O2 Saturation VBG Potassium A-a O2 Difference 135.0 Hemoglobin Hgb O2 Saturation 98.0 Sodium 129 L Chloride 94 L Glucose Lactate Vent Mode A/c Mechanical Rate 12 FiO2 50.0 Tidal Volume 500 PEEP 0 Crit Value Called To Dr rell stephens Crit Value Called By Crit Value Read Back Y Blood Gas Notified Time 613 Potassium 5.2 H Carbon Dioxide 18 L Anion Gap 22 H BUN 39 H Creatinine 2.3 H Est GFR ( Amer) 34 Est GFR (Non-Af Amer) 28 Random Glucose 85 Calcium 7.9 L Arterial Blood Potassium Venous Blood Potassium 04/01/18 10:50 WBC RBC Hgb Hct MCV MCH MCHC RDW Plt Count pCO2 pO2 39 HCO3 ABG pH ABG Total CO2 ABG O2 Saturation ABG O2 Content ABG Base Excess ABG Hemoglobin ABG Carboxyhemoglobin POC ABG HHb (Measured) ABG Methemoglobin ABG O2 Capacity Chris Test ABG Potassium VBG pH 7.28 L VBG pCO2 48 VBG HCO3 20.6 VBG Total CO2 24.1 VBG O2 Sat (Calc) 33.9 L VBG Base Excess -4.4 L VBG Hgb O2 Saturation VBG Potassium 4.6 A-a O2 Difference Hemoglobin Hgb O2 Saturation Sodium 124.0 L Chloride 94.0 L Glucose 112 H Lactate 3.2 H Vent Mode Mechanical Rate FiO2 50.0 Tidal Volume PEEP 0 Crit Value Called To Crit Value Called By Crit Value Read Back Blood Gas Notified Time Potassium Carbon Dioxide Anion Gap BUN Creatinine Est GFR ( Amer) Est GFR (Non-Af Amer) Random Glucose Calcium Arterial Blood Potassium Venous Blood Potassium 4.6 Assessment & Plan (1) Acute kidney injury Assessment and Plan: it appeared the patient has acute kidney injury with serum creatinine rising rapidly in the past 3 days. Etiology is multifactorial patient receiving multiple antibiotics and multiple vasopressor and the patient in cardiogenic shock as reported Also rule out cardiac renal syndrome Hypotension with multiple vasopressor My recommendation Patient receiving vancomycin 750 mg every 12 hours I suggest to stop it and replace it with other antibiotics immediately and to get serum vancomycin level. Stat spot urine for sodium osmolality and creatinine Continue supportive therapy as per intensive care unit team with the respirator and vasopressor Status: Acute (2) Altered mental status Status: Acute Priority: High (3) CHF (congestive heart failure) Status: Acute (4) COPD (chronic obstructive pulmonary disease) Status: Acute (5) Hypotension Status: Acute Priority: High (6) AICD (automatic cardioverter/defibrillator) present Status: Chronic
[2018-04-01] MEDS ORDERED: WATER IV ONE (15:43)
[2018-04-01] MEDS ORDERED: NOREPINEPHRINE IV ONE (15:43)
[2018-04-01] MEDS ORDERED: DEXTROSE 5% IV ONE (15:43)
[2018-04-01 16:38] VITALS: BP 83/58; PULSE 114; RESP 18; TEMP 99.7; O2SAT 100
--- NOTE | 2018-04-01 16:49 | CP.PCM.PN ---
Subjective - Date & Time of Evaluation Date of Evaluation: 04/01/18 Objective - Vital Signs/Intake and Output Vital Signs (last 24 hours): Temp Pulse Resp BP Pulse Ox 99.7 F H 114 H 18 83/58 L 100 04/01/18 16:00 04/01/18 16:00 04/01/18 16:00 04/01/18 16:00 04/01/18 16:00 Intake and Output: 04/01/18 04/01/18 06:59 18:59 Intake Total 2506 201 Output Total 55 Balance 2451 201 - Medications Medications: Current Medications Acetaminophen (Tylenol 325mg Tab) 650 mg PO Q4 PRN PRN Reason: Pain, Mild (1-3) Last Admin: 03/24/18 21:00 Dose: 650 mg Acetaminophen (Tylenol 650 Mg Supp) 650 mg NC Q6 PRN PRN Reason: Fever >100.4 F Last Admin: 03/29/18 20:12 Dose: 650 mg Acetaminophen (Tylenol 650 Mg Supp) 650 mg NC ONCE PRN PRN Reason: Fever >100.4 F Albuterol/Ipratropium (Duoneb 3 Mg/0.5 Mg (3 Ml) Ud) 3 ml INH RQ4 EUGENIO Last Admin: 04/01/18 15:24 Dose: 3 ml Bisacodyl (Dulcolax) 10 mg NC DAILY PRN PRN Reason: No bowel movement x3days Last Admin: 03/27/18 09:01 Dose: 10 mg Furosemide (Lasix) 40 mg IV BID EUGENIO Last Admin: 04/01/18 09:29 Dose: Not Given Heparin Sodium (Porcine) (Heparin) 5,000 units SC Q12 EUGENIO PRN Reason: Protocol Last Admin: 04/01/18 09:27 Dose: 5,000 units Vancomycin HCl 750 mg/ Sodium (Chloride) 250 mls @ 166.667 mls/hr IVPB Q12 EUGENIO PRN Reason: Protocol Last Admin: 03/31/18 22:35 Dose: 166.667 mls/hr Meropenem 1 gm/ Sodium (Chloride) 100 mls @ 100 mls/hr IVPB Q12 EUGENIO PRN Reason: Protocol Last Admin: 04/01/18 09:06 Dose: 100 mls/hr Clindamycin Phosphate (Cleocin) 600 mg in 50 mls @ 46.296 mls/hr IVPB Q8 EUGENIO PRN Reason: Protocol Last Admin: 04/01/18 09:04 Dose: 46.296 mls/hr Dobutamine HCl/Dextrose (Dobutamine/Dextrose 5% 500mg/250ml) 500 mg in 250 mls @ 20.003 mls/hr IV .[id number] EUGENIO; 7.5 MCG/KG/MIN PRN Reason: Protocol Last Admin: 04/01/18 10:42 Dose: 19.5 mcg/kg/min, 52.009 mls/hr Dopamine HCl 800 mg/ Dextrose 270 mls @ 9 mls/hr IV .Q24H EUGENIO; 5 MCG/KG/MIN PRN Reason: Protocol Stop: 04/02/18 07:49 Last Titration: 04/01/18 14:32 Dose: 20 mcg/kg/min, 36 mls/hr Norepinephrine Bitartrate 32 (mg/ Dextrose) 1,032 mls @ 58.05 mls/hr IV .[id number] ONE; 30 MCG/MIN PRN Reason: Protocol Stop: 04/02/18 09:29 Lorazepam (Ativan) 1 mg IVP Q4 PRN PRN Reason: Agitation Last Admin: 04/01/18 10:11 Dose: 1 mg Magnesium Hydroxide (Milk Of Magnesia) 30 ml PO HS PRN PRN Reason: No bowel movement x2 days Pantoprazole Sodium (Protonix Inj) 40 mg IVP Q12 EUGENIO Last Admin: 04/01/18 09:07 Dose: 40 mg - Labs Labs: 04/01/18 04:00 04/01/18 05:44 PT 22.5 Seconds (9.8-13.1) H 03/31/18 04:20 INR 2.0 03/31/18 04:20 APTT 32.6 Seconds (25.6-37.1) 03/31/18 04:20 Assessment and Plan (1) Acute respiratory failure Status: Resolved (2) CHF (congestive heart failure) Status: Chronic (3) Altered mental status Status: Acute (4) UTI (urinary tract infection) Status: Resolved (5) Difficulty with speech Status: Chronic (6) History of permanent cardiac pacemaker placement Status: Chronic (7) CAD (coronary artery disease) Status: Chronic (8) Generalized weakness Status: Chronic (9) Anxiety Status: Chronic (10) Jaundice Status: Acute (11) Bleeding Status: Resolved
--- NOTE | 2018-04-01 17:14 | CP.PCM.DIS ---
Provider - Provider Date of Admission: 03/12/18 16:48 Attending physician: Mike Mueller MD Diagnosis - Discharge Diagnosis (1) Acute respiratory failure Status: Resolved Priority: High (2) CHF (congestive heart failure) Status: Chronic Priority: High (3) Altered mental status Status: Acute Priority: High (4) UTI (urinary tract infection) Status: Resolved Priority: High (5) Difficulty with speech Status: Chronic Priority: High (6) History of permanent cardiac pacemaker placement Status: Chronic Priority: Medium (7) CAD (coronary artery disease) Status: Chronic Priority: Medium (8) Generalized weakness Status: Chronic Priority: High (9) Anxiety Status: Chronic Priority: Medium (10) Jaundice Status: Acute Priority: High (11) Bleeding Status: Resolved Hospital Course - Lab Results Lab Results: Micro Results 03/27/18 12:16 Blood-Thru Central Line Blood Culture - Final NO GROWTH AFTER 5 DAYS 03/27/18 12:16 Blood-Thru Central Line Gram Stain - Final TEST NOT PERFORMED 03/27/18 12:16 Blood-Venous Blood Culture - Final NO GROWTH AFTER 5 DAYS 03/27/18 12:16 Blood-Venous Gram Stain - Final TEST NOT PERFORMED 03/29/18 10:07 Sputum Induced Gram Stain - Final 03/29/18 10:07 Sputum Induced Sputum Culture - Preliminary Gram Negative Vahid 03/29/18 21:16 Blood-Venous Blood Culture - Preliminary NO GROWTH AFTER 48 HOURS 03/29/18 21:06 Blood-Venous Blood Culture - Preliminary NO GROWTH AFTER 48 HOURS 03/29/18 09:55 Urine,Catheterized Urine Culture - Final No Growth (<1,000 CFU/ML) 03/27/18 13:00 Trachasp Gram Stain - Final 03/27/18 13:00 Trachasp Sputum Culture - Final Serratia Marcescens 03/24/18 21:15 Blood-Thru Central Line Blood Culture - Final NO GROWTH AFTER 5 DAYS 03/24/18 21:15 Blood-Thru Central Line Gram Stain - Final TEST NOT PERFORMED 03/27/18 13:00 Urine,Chen Urine Culture - Final No Growth (<1,000 CFU/ML) 03/24/18 21:30 Blood-Thru Central Line S.aureus & Coag-Neg Staph PNA FISH - Final 03/24/18 21:30 Blood-Thru Central Line Blood Culture - Final Coagulase Neg Staphylococcus 03/24/18 21:30 Blood-Thru Central Line Gram Stain - Final 03/24/18 21:30 Sputum Induced Gram Stain - Final 03/24/18 21:30 Sputum Induced Sputum Culture - Final NORMAL ORAL TARIQ 03/24/18 21:30 Urine,Catheterized Urine Culture - Final No Growth (<1,000 CFU/ML) 03/19/18 11:10 Trachasp Gram Stain - Final 03/19/18 11:10 Trachasp Sputum Culture - Final Yeast Species 03/16/18 07:00 Nose MRSA Culture (Admit) - Final MRSA NOT DETECTED Most Recent Lab Values WBC 10.2 K/uL (4.8-10.8) 04/01/18 04:00 RBC 3.13 Mil/uL (4.40-5.90) L 04/01/18 04:00 Hgb 9.7 g/dL (12.0-18.0) L 04/01/18 04:00 Hct 30.0 % (35.0-51.0) L 04/01/18 04:00 MCV 95.8 fl (80.0-94.0) H 04/01/18 04:00 MCH 30.9 pg (27.0-31.0) 04/01/18 04:00 MCHC 32.3 g/dL (33.0-37.0) L 04/01/18 04:00 RDW 21.1 % (11.5-14.5) H 04/01/18 04:00 Plt Count 302 K/uL (130-400) 04/01/18 04:00 MPV 9.2 fl (7.2-11.7) 03/28/18 05:10 Neut % (Auto) 59.9 % (50.0-75.0) 03/28/18 05:10 Lymph % (Auto) 29.4 % (20.0-40.0) 03/28/18 05:10 [place] % (Auto) 8.3 % (0.0-10.0) 03/28/18 05:10 Eos % (Auto) 1.8 % (0.0-4.0) 03/28/18 05:10 Baso % (Auto) 0.6 % (0.0-2.0) 03/28/18 05:10 Neut # (Auto) 3.2 K/uL (1.8-7.0) 03/28/18 05:10 Lymph # (Auto) 1.6 K/uL (1.0-4.3) 03/28/18 05:10 [place] # (Auto) 0.4 K/uL (0.0-0.8) 03/28/18 05:10 Eos # (Auto) 0.1 K/uL (0.0-0.7) 03/28/18 05:10 Baso # (Auto) 0.0 K/uL (0.0-0.2) 03/28/18 05:10 PT 22.5 Seconds (9.8-13.1) H 03/31/18 04:20 INR 2.0 03/31/18 04:20 APTT 32.6 Seconds (25.6-37.1) 03/31/18 04:20 Fibrinogen 277 mg/dl (200-400) 03/21/18 11:59 pCO2 31 mm/Hg (35-45) L 04/01/18 06:13 pO2 39 mm/Hg (30-55) 04/01/18 10:50 HCO3 19.9 mmol/L (21-28) L 04/01/18 06:13 ABG pH 7.37 (7.35-7.45) 04/01/18 06:13 ABG Total CO2 18.9 mmol/L (22-28) L 04/01/18 06:13 ABG O2 Saturation 100.5 % (95-98) H 04/01/18 06:13 ABG O2 Content 13.9 ML/dL (15-23) L 04/01/18 06:13 ABG Base Excess -6.5 mmol/L (-2.0-3.0) L 04/01/18 06:13 ABG Hemoglobin 9.8 g/dL (11.7-17.4) L 04/01/18 06:13 ABG Carboxyhemoglobin 1.5 % (0.5-1.5) 04/01/18 06:13 POC ABG HHb (Measured) -0.5 % (0.0-5.0) L 04/01/18 06:13 ABG Methemoglobin 1.1 % (0.0-3.0) 04/01/18 06:13 ABG O2 Capacity 13.8 mL/dL (16-24) L 04/01/18 06:13 Chris Test Yes 04/01/18 06:13 ABG Potassium 4.9 mmol/L (3.6-5.2) 03/31/18 17:04 VBG pH 7.28 (7.32-7.43) L 04/01/18 10:50 VBG pCO2 48 mmHg (40-60) 04/01/18 10:50 VBG HCO3 20.6 mmol/L 04/01/18 10:50 VBG Total CO2 24.1 mmol/L (22-28) 04/01/18 10:50 VBG O2 Sat (Calc) 33.9 % (40-65) L 04/01/18 10:50 VBG Base Excess -4.4 mmol/L (0.0-2.0) L 04/01/18 10:50 VBG Hgb O2 Saturation 27.6 % (95.0-98.0) L 03/31/18 22:25 VBG Potassium 4.6 mmol/L (3.6-5.2) 04/01/18 10:50 A-a O2 Difference 135.0 mm/Hg 04/01/18 06:13 Hemoglobin 10.1 g/dL (11.7-17.4) L 03/31/18 22:25 Hgb O2 Saturation 98.0 % (95.0-98.0) 04/01/18 06:13 Sodium 124.0 mmol/L (132-148) L 04/01/18 10:50 Chloride 94.0 mmol/L (98-107) L 04/01/18 10:50 Glucose 112 mg/dL (75-110) H 04/01/18 10:50 Lactate 3.2 mmol/L (0.7-2.1) H 04/01/18 10:50 Vent Mode A/c 04/01/18 06:13 Mechanical Rate 12 04/01/18 06:13 FiO2 50.0 % 04/01/18 10:50 Tidal Volume 500 04/01/18 06:13 PEEP 0 04/01/18 10:50 Blood Gas Comments 100%nrm,lr 03/31/18 09:50 Crit Value Called To Dr rell stephens 04/01/18 06:13 Crit Value Called By Wilber 04/01/18 06:13 Crit Value Read Back Y 04/01/18 06:13 Blood Gas Notified Time 613 04/01/18 06:13 Sodium 129 mmol/l (132-148) L 04/01/18 05:44 Potassium 5.2 MMOL/L (3.6-5.0) H 04/01/18 05:44 Chloride 94 mmol/L (98-107) L 04/01/18 05:44 Carbon Dioxide 18 mmol/L (22-30) L 04/01/18 05:44 Anion Gap 22 (10-20) H 04/01/18 05:44 BUN 39 mg/dl (9-20) H 04/01/18 05:44 Creatinine 2.3 mg/dl (0.8-1.5) H 04/01/18 05:44 Est GFR ( Amer) 34 04/01/18 05:44 Est GFR (Non-Af Amer) 28 04/01/18 05:44 POC Glucose (mg/dL) 115 mg/dL (65-110) H 03/19/18 21:03 Random Glucose 85 mg/dL (75-110) 04/01/18 05:44 Serum Osmolality 274 mosm/kg (272-300) 03/28/18 05:10 Lactic Acid 1.8 MMOL/L (0.7-2.1) 03/20/18 05:00 Calcium 7.9 mg/dL (8.4-10.2) L 04/01/18 05:44 Phosphorus 4.0 mg/dl (2.5-4.5) 03/31/18 04:20 Magnesium 2.1 MG/DL (1.6-2.3) 03/31/18 04:20 Total Bilirubin 2.9 mg/dl (0.2-1.3) H 03/31/18 04:20 AST 50 U/L (17-59) 03/31/18 04:20 ALT 28 U/L (21-72) 03/31/18 04:20 Alkaline Phosphatase 72 U/L (38-126) 03/31/18 04:20 Ammonia 18 umo/L (16-60) D 03/16/18 16:22 Troponin I < 0.0120 ng/mL (0.00-0.120) 03/16/18 16:00 NT-Pro-B Natriuret Pep 18621 pg/ml (0-900) H 03/22/18 09:37 Total Protein 6.7 G/DL (6.3-8.2) 03/31/18 04:20 Albumin 3.4 g/dL (3.5-5.0) L 03/31/18 04:20 Globulin 3.3 gm/dL (2.2-3.9) 03/31/18 04:20 Albumin/Globulin Ratio 1.0 (1.0-2.1) 03/31/18 04:20 Vitamin B12 734 pg/mL (239-931) 03/13/18 11:30 Folate 9.7 ng/mL 03/13/18 11:30 Procalcitonin 0.73 NG/ML (0.19-0.49) H 03/19/18 11:28 Thyroxine (T4) 5.69 ug/dl (5.5-11.0) 03/15/18 06:00 Total T3 0.314 nmol/L (1.49-2.60) L 03/15/18 06:00 TSH 3rd Generation 1.89 mIU/ML (0.46-4.68) 03/15/18 06:00 Cortisol AM Sample 2.6 ug/dL (4.46-22.7) L 03/27/18 04:20 Arterial Blood Potassium 4.9 mmol/L (3.6-5.2) 03/31/18 17:04 Venous Blood Potassium 4.6 mmol/L (3.6-5.2) 04/01/18 10:50 Urine Color Mary (YELLOW) 03/24/18 21:30 Urine Clarity Slighty-cloudy (Clear) 03/24/18 21:30 Urine pH 6.0 (5.0-8.0) 03/24/18 21:30 Ur Specific [place] 1.019 (1.003-1.030) 03/24/18 21:30 Urine Protein 100 mg/dL (NEGATIVE) 03/24/18 21:30 Urine Glucose (UA) Neg mg/dL (Normal) 03/24/18 21:30 Urine Ketones Negative mg/dL (NEGATIVE) 03/24/18 21:30 Urine Blood Negative (NEGATIVE) 03/24/18 21:30 Urine Nitrate Negative (NEGATIVE) 03/24/18 21:30 Urine Bilirubin Small (NEGATIVE) 03/24/18 21:30 Urine Urobilinogen 4.0 mg/dL (0.2-1.0) 03/24/18 21:30 Ur Leukocyte Esterase Neg Rk/uL (Negative) 03/24/18 21:30 Urine RBC (Auto) 3 /hpf (0-3) 03/24/18 21:30 Urine Microscopic WBC 4 /hpf (0-5) 03/24/18 21:30 Ur Squamous Epith Cells 2 /hpf (0-5) 03/12/18 15:54 Urine Bacteria Rare (<OCC) 03/24/18 21:30 Hyaline Casts 0-2 /hpf (0-2) 03/24/18 21:30 Granular Casts (Auto) 13 /lpf (0-1) 03/12/18 15:54 Urine Osmolality 697 mosm/kg (300-1000) 03/28/18 06:32 Ur Random Sodium 90 meq/L 03/28/18 06:32 Ur Random Potassium 78.7 mmol/L 03/28/18 06:32 Random Vancomycin 45.9 ug/mL 04/01/18 14:20 IgG 1071.0 mg/dL (700.0-1600.0) 03/15/18 06:00 IgA 477.8 mg/dL (70.0-400.0) H 03/15/18 06:00 IgM 50.6 mg/dL (40.0-230.0) 03/15/18 06:00 IgE 1011 kU/L (<bz=672) H 03/15/18 06:00 KATINA Screen Positive (Negative) H 03/15/18 06:00 KATINA Titer 1:80 Titer (<1:40) H 03/15/18 06:00 KATINA Titer 2 TEST NOT PERFORMED 03/15/18 06:00 KATINA Pattern Nucleolar H 03/15/18 06:00 KATINA Pattern 2 TEST NOT PERFORMED 03/15/18 06:00 Anti-Smooth Muscle Ab Negative (Negative) 03/15/18 06:00 Thyroperoxidase Ab <1 IU/mL (<9) 03/15/18 06:00 Thyroglobulin Antibody <1 IU/mL (< OR = 1) 03/15/18 06:00 Complement C3 60.0 mg/dL (88.0-165.0) L 03/15/18 06:00 Complement C4 20.8 mg/dL (14.0-44.0) 03/15/18 06:00 Tot Complement (CH50) 47 U/mL (31-60) 03/15/18 06:00 Hepatitis A IgM Ab Negative (NEGATIVE) 03/13/18 05:30 Hep Bs Antigen Negative (NEGATIVE) 03/13/18 05:30 Hep B Core IgM Ab Negative (NEGATIVE) 03/13/18 05:30 Hepatitis C Antibody Negative (NEGATIVE) 03/13/18 05:30 Blood Type O POSITIVE 03/16/18 16:01 Antibody Screen Negative 03/16/18 16:01 Crossmatch See Detail 03/16/18 16:01 BBK History Checked Patient has bt 03/16/18 16:01 Discharge Exam - Head Exam Head Exam: NORMAL INSPECTION Discharge Plan - Discharge Medications Prescriptions: cefTRIAXone 1 gm [Rocephin 1 gram IVPB] 1 gm IVPB DAILY #7 bag - Follow Up Plan Condition: GUARDED Disposition: Trans to Other Acute Care Hosp
--- NOTE | 2018-04-01 17:19 | CP.PCM.PN ---
Subjective - Date & Time of Evaluation Date of Evaluation: 04/01/18 Time of Evaluation: 17:17 - Subjective Subjective: pt being transferred to [facility] for CT Sx evaluation for LVAD on 4 pressors Objective - Vital Signs/Intake and Output Vital Signs (last 24 hours): Temp Pulse Resp BP Pulse Ox 99.7 F H 114 H 18 83/58 L 100 04/01/18 16:00 04/01/18 16:00 04/01/18 16:00 04/01/18 16:00 04/01/18 16:00 Intake and Output: 04/01/18 04/01/18 06:59 18:59 Intake Total 2506 201 Output Total 55 Balance 2451 201 - Labs Labs: 04/01/18 04:00 04/01/18 05:44 PT 22.5 Seconds (9.8-13.1) H 03/31/18 04:20 INR 2.0 03/31/18 04:20 APTT 32.6 Seconds (25.6-37.1) 03/31/18 04:20 - Constitutional Appears: Toxic, In Acute Distress - Head Exam Head Exam: ATRAUMATIC, NORMAL INSPECTION, NORMOCEPHALIC - Eye Exam Eye Exam: EOMI, Normal appearance, PERRL Pupil Exam: NORMAL ACCOMODATION, PERRL - ENT Exam ENT Exam: Mucous Membranes Moist, Normal Exam - Neck Exam Neck Exam: Full ROM, Normal Inspection. absent: Lymphadenopathy - Respiratory Exam Respiratory Exam: Clear to Ausculation Bilateral, NORMAL BREATHING PATTERN - Cardiovascular Exam Cardiovascular Exam: REGULAR RHYTHM, +S1, +S2, Murmur - GI/Abdominal Exam GI & Abdominal Exam: Soft, Normal Bowel Sounds. absent: Tenderness - Extremities Exam Extremities Exam: Normal Capillary Refill, Normal Inspection. absent: Joint Swelling, Pedal Edema - Back Exam Back Exam: NORMAL INSPECTION - Neurological Exam Neurological Exam: Altered - Skin Skin Exam: Dry, Intact, Normal Color, Warm Assessment and Plan (1) CHF (congestive heart failure) Assessment & Plan: transfer to [facility] Sx at [facility] for LVAD support cont pressors family wants to be aggressive for management Status: Chronic (2) Acute respiratory failure Status: Resolved (3) Altered mental status Status: Acute (4) Jaundice Status: Acute (5) CAD (coronary artery disease) Status: Chronic (6) History of permanent cardiac pacemaker placement Status: Chronic (7) COPD exacerbation Status: Resolved
--- NOTE | 2018-04-02 09:56 | US ---
PROCEDURE: Date of procedure: 03/26/2018 Procedure: 1. Ultrasound-guided left thoracentesis, CPT 17697 Medications: 5cc 1% Lidocaine HISTORY: Left pleural effusion, ventilatory failure TECHNIQUE: Following informed consent ,the Patients' left chest was marked. Procedure time-out was called, and the patient was placed in the sitting position and limited ultrasound showed a small left effusion. The patient's left back was prepped and draped in the usual sterile fashion. After the skin was anesthetized with lidocaine, a drainage catheter was advanced under ultrasound guidance into the pleural space. Ultrasound-guided thoracentesis was performed. A total of 400 cubic centimeters of straw-colored fluid removed without complication. A Xeroform dressing was applied. IMPRESSION: Ultrasound guided left thoracentesis. There were no immediate complications.
== END 2018-04-01 17:00 | disposition short-term general hospital (02) | DRG 441 ==
LOC: H.ER 14:13 → H.ERHOLD 16:48 → H.TEL 21:04 → H.ICU/CCU 03-16 16:05
PROVIDERS: ADMIT Internal Medicine Pulmonary Disease; ATTEND Internal Medicine Pulmonary Disease
PROC: 05HM33Z Insertion of Infusion Device into Right Internal Jugular Vein, Percutaneous Approach (ICD-10-PCS; principal; 2018-03-16)
PROC: 0BH17EZ Insertion of Endotracheal Airway into Trachea, Via Natural or Artificial Opening (ICD-10-PCS; 2018-03-16)
PROC: 5A1955Z Respiratory Ventilation, Greater than 96 Consecutive Hours (ICD-10-PCS; 2018-03-16)
PROC: 0BH17EZ Insertion of Endotracheal Airway into Trachea, Via Natural or Artificial Opening (ICD-10-PCS; 2018-03-20)
PROC: 0W993ZZ Drainage of Right Pleural Cavity, Percutaneous Approach (ICD-10-PCS; 2018-03-25)
PROC: 0W9B3ZZ Drainage of Left Pleural Cavity, Percutaneous Approach (ICD-10-PCS; 2018-03-26)
PROC: 06HM33Z Insertion of Infusion Device into Right Femoral Vein, Percutaneous Approach (ICD-10-PCS; 2018-03-30)
PROC: 0BH17EZ Insertion of Endotracheal Airway into Trachea, Via Natural or Artificial Opening (ICD-10-PCS; 2018-03-31)
DX: K75.89 Other specified inflammatory liver diseases (principal); R57.0 Cardiogenic shock; I50.23 Acute on chronic systolic (congestive) heart failure; J96.01 Acute respiratory failure with hypoxia; J18.9 Pneumonia, unspecified organism; N39.0 Urinary tract infection, site not specified; R18.8 Other ascites; N17.9 Acute kidney failure, unspecified; J44.1 Chronic obstructive pulmonary disease with (acute) exacerbation; B37.0 Candidal stomatitis; R17 Unspecified jaundice; J98.11 Atelectasis; J91.8 Pleural effusion in other conditions classified elsewhere; R78.81 Bacteremia; I42.9 Cardiomyopathy, unspecified; J44.0 Chronic obstructive pulmonary disease with (acute) lower respiratory infection; R04.2 Hemoptysis; Z95.810 Presence of automatic (implantable) cardiac defibrillator; Z96.653 Presence of artificial knee joint, bilateral; Z86.73 Personal history of transient ischemic attack (TIA), and cerebral infarction without residual deficits; Z87.891 Personal history of nicotine dependence; I25.10 Atherosclerotic heart disease of native coronary artery without angina pectoris; F41.9 Anxiety disorder, unspecified; R74.8 Abnormal levels of other serum enzymes; F03.90 Unspecified dementia, unspecified severity, without behavioral disturbance, psychotic disturbance, mood disturbance, and anxiety; J34.2 Deviated nasal septum; K76.0 Fatty (change of) liver, not elsewhere classified; I11.0 Hypertensive heart disease with heart failure; D69.6 Thrombocytopenia, unspecified; E87.6 Hypokalemia; E16.2 Hypoglycemia, unspecified; E78.00 Pure hypercholesterolemia, unspecified; Y95 Nosocomial condition; E87.5 Hyperkalemia; R47.81 Slurred speech; Z86.19 Personal history of other infectious and parasitic diseases; E83.39 Other disorders of phosphorus metabolism